=== PATIENT | female | born 1940 | race Caucasian/White ===

== ENCOUNTER 2016-06-10 17:08 | Inpatient (IN) | payer BC, OTHER ==
[~2016-06-10] VITALS: Ht 160 cm; Wt 125.3 kg
[~2016-06-10 17:08] MED LIST: ADVIN25/60 INH; ALBINS INH; APR25 PO; ASPI81TA28 PO; FURO-85 PO; INSDGI SC; IPRA1AER2 INH; LINICRE52; LISI40TA PO; LPR25 PO; MCTP EXT; NVLGI SC; NVLGI SQ; OMEP20CA9 PO; OXGN; POTA10CA28 PO; SIMV-151 PO; SLWMEC PO; TYLOTC500 PO
[2016-06-10] MEDS ORDERED: SODIUM CHLORIDE 0.9% 1000ML 1,000 ML IV STA (17:46)
--- NOTE | 2016-06-10 18:03 | EMERGENCY ROOM VISIT NOTE ---
History First contact with patient: 17:21 Chief Complaint: REFERRED BY DOCTOR Stated Complaint: REFERRED History of Present Illness The patient is a 75 year old female who presents to the Emergency Room with complaints of fatigue and shortness of breath for the past 2 weeks. She cannot recall any inciting factors. She is brought in today because she saw her PCP because hemoglobin was noted to have acutely dropped to 6.5 ( baseline approximately 9) She denies any bleeding. She has not had melena or ruy blood in the stool. She denies abdominal pain, nausea or vomiting. She also notes shortness of breath or the past 2 weeks. It is non-positional. She does not have chest pain or palpitations. She denies presyncope or syncope. She has noted increased edema and 'weeping' bilaterally in her lower extremities. She also notes increasing bilateral calf tenderness. She thought about doubling her dose of Lasix but did not. She has not had any dysuria, but notes incontinence with coughing. She denies blood in the urine. Review of Systems A review of systems was otherwise negative. Past Medical/Surgical History Medical Problems: (1) Bilateral lower leg cellulitis (2) CAD (coronary artery disease) (3) COPD (chronic obstructive pulmonary disease) (4) Diastolic CHF (5) DM type 2 (diabetes mellitus, type 2) (6) Dyslipidemia (7) EDEMA (8) HISTORY OF TOBACCO USE (9) HYPERLIPIDEMIA NEC/NOS (10) HYPERTENSION NOS (11) MORBID OBESITY (12) Nocturnal hypoxemia (13) OBSTRUCTIVE CHRONIC BRONCH, W/ ACUTE EXACERBATION (14) Osteoarthritis (15) Symptomatic anemia (16) VENOUS INSUFFICIENCY NOS Surgical Problems: (1) History of cataract surgery (2) History of hysterectomy (3) History of total left knee replacement (4) S/P adenoidectomy Family History Diabetes mellitus MOTHER SISTER FH: CAD (coronary artery disease) MOTHER BROTHER FH: lung cancer BROTHER Social History Smoking Status: Former Smoker (25 pack year) Alcohol Use: none Drug Use: none Marital Status: single Housing Status: lives alone 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) Current/Historical Medications Scheduled Aspirin (Aspirin Ec), 81 MG PO DAILY Ferrous Sulfate (Ferrous Sulfate), 325 MG PO DAILY WITH BREAKFAST Fluticasone Prop/Salmeterol (Advair Diskus 250/50 60 Dose), 1 PUFF INH BID Furosemide (Lasix), 40 MG PO DAILY Hydralazine Hcl (Apresoline), 25 MG PO TID Insulin Aspart (Novolog), 10 UNITS SQ BIDM Insulin Aspart (Novolog), 12 UNITS SQ LUNCH Insulin Glargine (Lantus), 50 UNITS SC HS Ipratropium-Albuterol (Combivent Respimat), 1 PUFFS INH QID Lisinopril (Zestril), 40 MG PO HS Metoprolol Tartrate (Lopressor), 25 MG PO BID Omeprazole (Prilosec), 20 MG PO HS Oxygen (Oxygen), 2 LITERS NA HS Potassium Chloride (Micro-K Ext Rel), 10 MEQ PO DAILY Simvastatin (Simvastatin), 20 MG PO HS Scheduled PRN Acetaminophen (Tylenol), 1,000 MG PO Q8 PRN Allergies Coded Allergies: Cephalosporins (Verified Allergy, Unknown, 06/10/16) Ciprofloxacin (Verified Allergy, Unknown, RASH, 06/10/16) Clindamycin (Verified Allergy, Unknown, RASH, 06/10/16) Erythromycin (Verified Allergy, Unknown, 06/10/16) Metformin (Unverified Allergy, Unknown, EDEMA FACE AND HANDS, ITCHY, ) Penicillins (Verified Allergy, Unknown, 06/10/16) Sulfa Antibiotics (Verified Allergy, Unknown, ., 06/10/16) Physical Exam Vital Signs Date Time Temp Pulse Resp B/P Pulse Ox O2 Delivery O2 Flow Rate FiO2 06/10/16 20:30 105 23 158/82 98 Nasal Cannula 2.0 06/10/16 19:08 93 Nasal Cannula 3.0 06/10/16 19:07 87 Room Air 06/10/16 19:01 121 06/10/16 18:28 69 31 06/10/16 18:23 69 25 06/10/16 17:59 94 Room Air 06/10/16 17:14 36.7 119 18 138/73 91 Room Air Pain Rating (0-10): 0 Physical Exam Constitutional: Vital signs as above were reviewed. Eyes: Pupils equal, round, and reactive to light. Extraocular muscles are intact. No proptosis. No photophobia. ENT: Mucous membranes are moist. Oropharynx is clear. No sinus tenderness. TMs are clear bilaterally. Cardiovascular: Heart with a regular rate and rhythm. JVD 3 cm; 2 + pitting edema and weepiness in extremities Respiratory: Wheezing anteriorly Bibasilar crackles GI: Morbidily obese Abdomen soft, nontender, nondistended. Normal active bowel sounds. No abdominal hernias appreciated. No rebound. No guarding. : No CVA tenderness appreciated. Musculoskeletal: No midline cervical or vertebral tenderness. Mild left paraspinal tenderness. No gross deformities. No bony tenderness. No calf swelling or tenderness. Integumentary: Warm, dry, no rashes appreciated. Bilateral erythema and mild scattered superficial blistering of the calfs Neurological: Patient awake, alert, and oriented x 3. Cranial nerves two through 12 grossly intact. Motor 5 out of 5 strength bilateral upper and lower extremities. Lymph: No cervical lymphadenopathy appreciated. Medical Decision & Procedures ER Provider Diagnostic Interpretation: CHEST ONE VIEW PORTABLE HISTORY: bilateral crackles; rule-out pulmonary edema COMPARISON: Chest 11/26/2015. FINDINGS: Cardiac silhouette is mildly enlarged. This is similar to the prior study. Blunting of the bilateral costophrenic sulci suggest trace pleural effusions. No pneumothorax. No focal lung consolidations to suggest pneumonia. No evidence for pulmonary edema. No change in the right hilar/mediastinal fullness. IMPRESSION: 1. Stable enlargement of cardiac silhouette and stable right hilar/mediastinal fullness. 2. Suspect trace bilateral pleural effusions. Electronically signed by: Alton Khan M.D. 06/10/2016 6:19 PM Dictated Date/Time: 06/10/2016 6:17 PM Laboratory Results 06/10/16 18:06 Red Blood Count 3.76, Mean Corpuscular Volume 67.0, Mean Corpuscular Hemoglobin 17.8, Mean Corpuscular Hemoglobin Concent 26.6, Neutrophils (%) (Auto) 72.9, Lymphocytes (%) (Auto) 17.8, Monocytes (%) (Auto) 6.9, Eosinophils (%) (Auto) 1.7, Basophils (%) (Auto) 0.6, Neutrophils # (Auto) 6.48, Lymphocytes # (Auto) 1.58, Monocytes # (Auto) 0.61, Eosinophils # (Auto) 0.15, Basophils # (Auto) 0.05 06/10/16 18:06 Test 06/10/16 18:06 06/10/16 18:42 06/10/16 20:20 White Blood Count 8.88 K/uL (4.8-10.8) Red Blood Count 3.76 M/uL (4.2-5.4) Hemoglobin 6.7 g/dL (12.0-16.0) Hematocrit 25.2 % (37-47) Mean Corpuscular Volume 67.0 fL (80-100) Mean Corpuscular Hemoglobin 17.8 pg (25-34) Mean Corpuscular Hemoglobin Concent 26.6 g/dl (32-36) Platelet Count 263 K/uL (130-400) Neutrophils (%) (Auto) 72.9 % Lymphocytes (%) (Auto) 17.8 % Monocytes (%) (Auto) 6.9 % Eosinophils (%) (Auto) 1.7 % Basophils (%) (Auto) 0.6 % Neutrophils # (Auto) 6.48 K/uL (1.4-6.5) Lymphocytes # (Auto) 1.58 K/uL (1.2-3.4) Monocytes # (Auto) 0.61 K/uL (0.11-0.59) Eosinophils # (Auto) 0.15 K/uL (0-0.5) Basophils # (Auto) 0.05 K/uL (0-0.2) RDW Standard Deviation 51.6 fL (36.4-46.3) RDW Coefficient of Variation 21.2 % (11.5-14.5) Immature Granulocyte % (Auto) 0.1 % Immature Granulocyte # (Auto) 0.01 K/uL (0.00-0.02) Hypochromasia PRESENT Anisocytosis PRESENT Microcytosis PRESENT Macrocytosis PRESENT Prothrombin Time 13.6 SECONDS (9.0-12.0) Prothromb Time International Ratio 1.3 (0.9-1.1) Activated Partial Thromboplast Time 25.4 SECONDS (21.0-31.0) Partial Thromboplastin Ratio 1.0 Anion Gap 7.0 mmol/L (3-11) Estimated GFR () 70.2 Estimated GFR (Non- 60.5 BUN/Creatinine Ratio 21.1 (10-20) Calcium Level 7.7 mg/dl (8.5-10.1) Magnesium Level 1.1 mg/dl (1.8-2.4) Total Bilirubin 0.5 mg/dl (0.2-1) Direct Bilirubin 0.2 mg/dl (0-0.2) Aspartate Amino Transf (AST/SGOT) 20 U/L (15-37) Alanine Aminotransferase (ALT/SGPT) 10 U/L (12-78) Alkaline Phosphatase 110 U/L (45-117) Troponin I < 0.015 ng/ml (0-0.045) Total Protein 6.7 gm/dl (6.4-8.2) Albumin 2.8 gm/dl (3.4-5.0) Lipase 168 U/L (73-393) Thyroid Stimulating Hormone (TSH) 1.340 uIu/ml (0.300-4.500) Urine Color YELLOW Urine Appearance CLEAR (CLEAR) Urine pH 8.5 (4.5-7.5) Urine Specific [place] 1.016 (1.000-1.030) Urine Protein TRACE (NEG) Urine Glucose (UA) NEG (NEG) Urine Ketones NEG (NEG) Urine Occult Blood NEG (NEG) Urine Nitrite NEG (NEG) Urine Bilirubin NEG (NEG) Urine Urobilinogen NEG (NEG) Urine Leukocyte Esterase MODERATE (NEG) Urine WBC (Auto) >30 /hpf (0-5) Urine RBC (Auto) 0-4 /hpf (0-4) Urine Hyaline Casts (Auto) 1-5 /lpf (0-5) Urine Epithelial Cells (Auto) 10-20 /lpf (0-5) Urine Bacteria (Auto) NEG (NEG) Arterial Blood pH 7.48 (7.35-7.45) Arterial Blood Partial Pressure CO2 44 mmHg (35-46) Arterial Blood Partial Pressure O2 92 mm/Hg (80-95) Arterial Blood HCO3 33 mmol/L (19-24) Arterial Blood Oxygen Saturation 93.6 % (90-95) Arterial Blood Base Excess 8.3 mEq/L (-9-1.8) Arterial Blood Gas Delivery 2L Vick Test POS (POS) Medications Administered Medications (Trade) Dose Ordered Sig/Toro Route Start Time Stop Time Status Last Admin Dose Admin Sodium Chloride (Nss 1000ml) 1,000 ml @ 999 mls/hr Q1H1M STAT IV 06/10/16 17:46 06/10/16 18:46 DC 06/10/16 18:45 999 MLS/HR Albuterol/ Ipratropium (Duoneb) 3 ml ONE ONCE INH 06/10/16 19:45 06/10/16 19:46 DC 06/10/16 19:43 3 ML Furosemide (Lasix Inj) 40 mg NOW STAT IV 06/10/16 19:39 06/10/16 19:40 DC 06/10/16 20:08 40 MG Dextrose (Dextrose 50% 50ML Syringe) 50 ml NOW ONCE IV 06/10/16 20:00 06/10/16 20:13 DC 06/10/16 20:32 50 ML ECG Change: Undetermined rhythm Low voltage QRS Inferior infarct , age undetermined Cannot rule out Anterior infarct , age undetermined Prolonged QT Abnormal ECG When compared with ECG of 26-NOV-2015 11:03, Significant changes have occurred ED Course 15:15 - Patient seen and evaluated Orders placed by Dr. Shukla 18:45 - Bedside rectal examination with hemoccult positive Discussed results with ED attending, Dr. Manjit Shukla Discussed results with patient and need for admission for further work-up 19:15 - Decision to admit Discussed case with [facility] [place]; will come down to admit patient 19:20 - Re-assessed; anterior wheezing with posterior crackles Single duoneb treatment Single dose 40 mg IV lasix 19:45 - Consent obtained for blood products Medical Decision Patient presents due to SOB for 2 weeks. Hb from PCP office was 6.5, confirmed in the ED at 6.7. Most likely source was GI tract. Bedside Hemoccult was positive. SOB might also be explained by other pertinent findings in the patient including anterior chest field wheezing as well as bibasilar crackles. At this point patient has gastrointestinal bleeding until otherwise proven. Given Hb < 7, she requires transfusion and likely evaluation by colonoscopy +/- upper endoscopy. Given wheezing, I have treated her with 1 dose of Duonebs as this may represent mild COPD exaccerbation. She also has diastolic CHF with evidence of increased lower extremity edema. I have diuresed her with 40 mg Lasix in the ED. She may require intermittent diuresis. She has been consented for blood products. She was signed out to primary hospital team in stable condition. Departure Information Dispostion Being Evaluated By Hospitalist Condition GOOD Referrals Jimi Sanchez, D.O. (PCP) Patient Instructions My [facility]
[2016-06-10] MEDS ORDERED: FRS/40 PO (18:21)
[2016-06-10] MEDS ORDERED: NVLG SQ ×2 (18:21)
[2016-06-10] MEDS ORDERED: INSDGI SC (18:21)
[2016-06-10] MEDS ORDERED: FRRS300 PO (18:21)
--- NOTE | 2016-06-10 18:21 | DIAGNOSTIC IMAGING REPORT ---
CHEST ONE VIEW PORTABLE HISTORY: bilateral crackles; rule-out pulmonary edema COMPARISON: Chest 11/26/2015. FINDINGS: Cardiac silhouette is mildly enlarged. This is similar to the prior study. Blunting of the bilateral costophrenic sulci suggest trace pleural effusions. No pneumothorax. No focal lung consolidations to suggest pneumonia. No evidence for pulmonary edema. No change in the right hilar/mediastinal fullness. IMPRESSION: 1. Stable enlargement of cardiac silhouette and stable right hilar/mediastinal fullness. 2. Suspect trace bilateral pleural effusions. Electronically signed by: Alton Khan M.D. 06/10/2016 6:19 PM Dictated Date/Time: 06/10/2016 6:17 PM
[2016-06-10 18:30] LABS: HEMATOCRIT 25.2 % (37-47); MEAN CORPUSCULAR HEMOGLOBIN 17.8 pg (25-34); MEAN CORPUSCULAR HGB CONC 26.6 g/dl (32-36); PLATELET COUNT 263 K/uL (130-400); RED BLOOD COUNT 3.76 M/uL (4.2-5.4); WHITE BLOOD COUNT 8.88 K/uL (4.8-10.8)
[2016-06-10 18:37] LABS: ANISOCYTOSIS PRESENT; BASO % 0.6 %; BASO ABS # 0.05 K/uL (0-0.2); COMPLETE YES; EOS % 1.7 %; HYPOCHROMIA PRESENT; IG% 0.1 %; LYMPH % 17.8 %; LYMPH ABS # 1.58 K/uL (1.2-3.4); MICROCYTOSIS PRESENT; MONO % 6.9 %; NEUT % 72.9 %
[2016-06-10 18:39] LABS: ALT/SGPT 10 U/L (12-78); BLOOD UREA NITROGEN 20 mg/dl (7-18); BUN/CREATININE RATIO 21.1 (10-20); CALCIUM 7.7 mg/dl (8.5-10.1); CARBON DIOXIDE 33 mmol/L (21-32); CHLORIDE 107 mmol/L (98-107); CREATININE 0.93 mg/dl (0.60-1.20); GLUCOSE 57 mg/dl (70-99); POTASSIUM 4.1 mmol/L (3.5-5.1); SODIUM 147 mmol/L (136-145)
[2016-06-10 18:42] LABS: ALKALINE PHOSPHATASE 110 U/L (45-117); AST/SGOT 20 U/L (15-37)
[2016-06-10 18:49] LABS: INR 1.3 (0.9-1.1); PROTHROMBIN TIME (PATIENT) 13.6 SECONDS (9.0-12.0)
[2016-06-10 19:11] LABS: URINE APPEARANCE CLEAR (CLEAR); URINE BILIRUBIN NEG (NEG); URINE COLOR YELLOW; URINE NITRITE NEG (NEG); URINE PH 8.5 (4.5-7.5); URINE SPECIFIC GRAVITY 1.016 (1.000-1.030); UROBILINOGEN NEG (NEG)
[2016-06-10 19:29] LABS: MANUAL MICROSCOPIC REQUIRED? NO; REVIEW REQ? NO; SULFASALICYLIC ACID POS (NEG)
[2016-06-10] MEDS ORDERED: FUROSEMIDE 40 MG/4 ML VIAL IV STA (19:39)
[2016-06-10] MEDS ORDERED: ALBUT/IPRATROP 3MG/0.5MG NEB 3 ML VIAL INH ONE (19:45)
[2016-06-10] MEDS ORDERED: DEXTROSE 50% 50 ML SYR IV ONE (20:00)
[2016-06-10 20:26] LABS: MAGNESIUM 1.1 mg/dl (1.8-2.4)
[2016-06-10 20:31] LABS: ARTERIAL BLD GAS O2 SATURATION 93.6 % (90-95); ARTERIAL BLOOD GAS BASE EXCESS 8.3 mEq/L (-9-1.8); ARTERIAL BLOOD GAS HCO3 33 mmol/L (19-24); ARTERIAL BLOOD GAS PO2 92 mm/Hg (80-95); ARTERIAL BLOOD GAS pH 7.48 (7.35-7.45)
[2016-06-10 20:32] LABS: ALLEN TEST POS (POS); O2 ADMINISTRATION 2L
[2016-06-10] MEDS ORDERED: LEVALBUTEROL/IPRATROPIUM NEB INH STA (20:44)
[2016-06-10] MEDS ORDERED: PROMETHAZINE HCL INJ 12.5 MG in SODIUM CHLORIDE 0.9% 50ML 50 ML IV PRN (20:45)
[2016-06-10] MEDS ORDERED: HYDROmorphone INJ 0.5 MG/0.5 ML SYR IV PRN (20:45)
[2016-06-10] MEDS ORDERED: GLUCOSE 10 TABS/TUBE PO PRN (20:45)
[2016-06-10] MEDS ORDERED: NITROGLYCERIN 0.4 MG SL PER TAB CHARGE SL PRN (20:45)
[2016-06-10] MEDS ORDERED: LEVALBUTEROL/IPRATROPIUM NEB INH PRN (20:45)
[2016-06-10] MEDS ORDERED: TRAMADOL HCL 50 MG TAB PO PRN (20:45)
[2016-06-10] MEDS ORDERED: DEXTROSE 50% 50 ML SYR IV PRN (20:45)
[2016-06-10] MEDS ORDERED: GLUCAGON FOR INJ 1 MG VIAL SQ PRN (20:45)
[2016-06-10] MEDS ORDERED: GLUCOSE 40% GEL 15 GM TUBE PO PRN (20:45)
[2016-06-10] MEDS: INSULIN ASPART 100 UNITS/ML 3 ML PEN SC SCH (21:00)
[2016-06-10 21:41] VITALS: BP 167/86; PULSE 79; TEMP 36.5; O2SAT 94
[2016-06-10 22:14] VITALS: BP 167/86; PULSE 79; TEMP 36.5; O2SAT 96; BMI 47.6
[2016-06-10] MEDS ORDERED: IPRATROPIUM BROMIDE NEB SOLN 0.02% 2.5 ML VIAL INH STA (22:16)
[2016-06-10] MEDS ORDERED: LEVALBUTEROL 1.25MG/0.5ML NEB INH STA (22:16)
--- NOTE | 2016-06-10 22:29 | HISTORY & PHYSICAL EXAMINATION ---
DATE OF ADMISSION: 06/10/2016 PRIMARY CARE DOCTOR: Dr. Sanchez. Hx obtained from px and records. CHIEF COMPLAINT: Abnormal blood work. HISTORY OF PRESENT ILLNESS: Medical history is significant for chronic respiratory failure secondary to COPD on home O2 at night, past tobacco abuse, CAD as per records, chronic diastolic heart failure (EF of 60-65% 2D echo in 2012), chronic anemia (baseline hemoglobin 9-10 as of 2015), DM2 insulin requiring, chronic venous insufficiency on diuretic therapy. Recent confinement last in November 2015 for diastolic heart failure and lower extremity swelling. In the last 2 weeks the patient noted shortness of breath especially on exertion. Feeling tired. No chest pain. Denies weight gain. Legs; kind of swollen and red with some seepage. painful legs Denies orthopnea. Denies black bloody stools, abdominal pain. Seen at the PCP's office today. Outpatient blood work showed hemoglobin of 6.5 Patient was sent to the Emergency Room. Hemoccult positive in the ER. MEDICAL HISTORY: As above. GI workup for anemia previously refused. Occasional hypoglycemic episodes in 70s at home. SURGERIES: She has had cataract surgery, hysterectomy, knee surgery, tonsillectomy and adenoidectomy. HOME MEDICATIONS: Include; Tylenol, aspirin, Advair Diskus, ferrous sulfate, Lasix, Combivent, simvastatin, NovoLog, Lantus, Zestril, Prilosec and oxygen at night. ALLERGIES: TO CLINDAMYCIN, ERYTHROMYCIN, CIPROFLOXACIN, METFORMIN, PENICILLIN AND SULFA. FAMILY HISTORY: Heart disease and diabetes. PERSONAL AND SOCIAL HISTORY: Past tobacco, no chronic intake of alcoholic beverages. 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 PHYSICAL EXAMINATION: VITAL SIGNS: Blood pressure was noted to be 158/82, pulse rate 105, RR 23, sats 87 later 90 on 3 liters. GENERAL: Noted to be uncomfortable. No respiratory distress. Obese. SKIN: Pallor. HEENT: Pale palpebral conjuctivae. Dry mucosa. NECK: Short. LUNGS: Decreased breath sounds. HEART: Tachycardic. ABDOMEN: Some distension, nontender. EXTREMITIES: Bilateral lower extremity erythema/induration, rayray LE tenderness. NEUROLOGIC: No gross focality. LABORATORIES: Hemoglobin 6.7 white cell count 5 platelets 260. Sodium 147 potassium 4.1, chloride 107, CO2 30, BUN 20, creatinine 0.9 and glucose was noted to be 57 Chest x-ray showed cardiomegaly with trace bilateral pleural effusions EKG junctional rhythm. ASSESSMENT: 1. Shortness of breath secondary to symptomatic anemia occult gastrointestinal bleed. 2. Hypertension, slightly elevated 3. chronic diastolic heart failure, euvolemic 4. hx CAD as per records 5. lower extremity cellulitis underlying chronic venous insufficiency on diuretic tx no sepsis. ro LE DVT 6. DM2, insulin requiring well-controlled as of recent hemoglobin A1c (4.2015) Patient with hypoglycemic episodes. 7. chronic resp failure 2 to COPD on home O2 at night PLAN: PCU transfuse pRBC to maintain hemoglobin greater than 8. Hold aspirin for now GI consult RE occult GI bleed continue home Lasix; Doxycycline trial for LE cellulitis, local measures Hold basal insulin, ISS BG goal 140-180; may need to decrease basal insulin home dose on dc in light of hypoglycemic episodes PT, OT eval. LE venous dopplers to rule out DVT (patient refusing for now) DVT prophylaxis, SCDs RE GI bleed Full code. MTDD
[2016-06-10] MEDS ORDERED: IPRATROPIUM BROMIDE NEB SOLN 0.02% 2.5 ML VIAL INH PRN (22:30)
[2016-06-10] MEDS ORDERED: LEVALBUTEROL 1.25MG/0.5ML NEB INH PRN (22:30)
[2016-06-10 23:02] VITALS: BP 172/76; PULSE 73; TEMP 36.3; O2SAT 98
[2016-06-10 23:20] VITALS: BP 159/86; PULSE 97; TEMP 36.7; O2SAT 97
[2016-06-10 23:35] VITALS: BP 176/83; PULSE 105; TEMP 36.7; O2SAT 98
[2016-06-10] MEDS: ACETAMINOPHEN 325 MG TAB PO PRN (23:35)
[2016-06-10] MEDS: FLUTICASONE/SALMETEROL 250/50 (ADVAIR) 14 PUFF/1 INHALER INH SCH (23:35)
[2016-06-10] MEDS: PANTOprazole SOD 40 MG TAB PO SCH (23:36)
[2016-06-10] MEDS: METOPROLOL TARTRATE 25 MG TAB PO SCH (23:37)
[2016-06-10] MEDS: SIMVASTATIN 20 MG TAB PO SCH (23:37)
[2016-06-10] MEDS: LISINOPRIL 40 MG TAB PO SCH (23:38)
[2016-06-10] MEDS: MAGNESIUM SULFATE 1GM / D5W 1 GM in PREMIXED IN D5W 100 ML IV SCH (23:38)
[2016-06-10] MEDS: DOXYCYCLINE IV 100 MG in DEXTROSE 5% 100ML 100 ML IV SCH (23:39)
[2016-06-11] VITALS (20 sets, daily range): BP systolic 124–163; BP diastolic 55–86; PULSE 64–105; TEMP 36.4–37; O2SAT 90–98; Ht 160 cm; Wt 125.3 kg
--- NOTE | 2016-06-11 00:46 | EMERGENCY ROOM VISIT NOTE ---
History Report prepared by Darnell: Ivy Shaw Under the Supervision of: Dr. Manjit Shukla D.O. 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 She states that she was referred here by her doctor and was told that she needed to get blood after having a hemoglobin of 6.5. She complains of shortness of breath, swelling in the legs over the last couple of weeks, and leg sores for a couple of weeks. She notes that her legs have never been this swollen before. The patient denies any chest pain, cough, runny nose, sore throat, nausea, bloody stools, black stools, and being on blood thinners. 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 The patient denies any runny nose, bloody stools, black stools, and being on blood thinners. Review of Systems See HPI for pertinent positives & negatives. A total of 10 systems reviewed and were otherwise negative. Past Medical & Surgical Medical Problems: (1) Bilateral lower leg cellulitis (2) CAD (coronary artery disease) (3) COPD (chronic obstructive pulmonary disease) (4) Diastolic CHF (5) DM type 2 (diabetes mellitus, type 2) (6) Dyslipidemia (7) EDEMA (8) HISTORY OF TOBACCO USE (9) HYPERLIPIDEMIA NEC/NOS (10) HYPERTENSION NOS (11) MORBID OBESITY (12) Nocturnal hypoxemia (13) OBSTRUCTIVE CHRONIC BRONCH, W/ ACUTE EXACERBATION (14) Osteoarthritis (15) Symptomatic anemia (16) VENOUS INSUFFICIENCY NOS Surgical Problems: (1) History of cataract surgery (2) History of hysterectomy (3) History of total left knee replacement (4) S/P adenoidectomy Family History Diabetes mellitus MOTHER SISTER FH: CAD (coronary artery disease) MOTHER BROTHER FH: lung cancer BROTHER Social History Smoking Status: Former Smoker Marital Status: single Housing Status: lives alone Occupation Status: retired Current/Historical Medications Scheduled Aspirin (Aspirin Ec), 81 MG PO DAILY Ferrous Sulfate (Ferrous Sulfate), 325 MG PO DAILY WITH BREAKFAST Fluticasone Prop/Salmeterol (Advair Diskus 250/50 60 Dose), 1 PUFF INH BID Furosemide (Lasix), 40 MG PO DAILY Hydralazine Hcl (Apresoline), 25 MG PO TID Insulin Aspart (Novolog), 10 UNITS SQ BIDM Insulin Aspart (Novolog), 12 UNITS SQ LUNCH Insulin Glargine (Lantus), 50 UNITS SC HS Ipratropium-Albuterol (Combivent Respimat), 1 PUFFS INH QID Lisinopril (Zestril), 40 MG PO HS Metoprolol Tartrate (Lopressor), 25 MG PO BID Omeprazole (Prilosec), 20 MG PO HS Oxygen (Oxygen), 2 LITERS NA HS Potassium Chloride (Micro-K Ext Rel), 10 MEQ PO DAILY Simvastatin (Simvastatin), 20 MG PO HS Scheduled PRN Acetaminophen (Tylenol), 1,000 MG PO Q8 PRN Allergies Coded Allergies: Cephalosporins (Verified Allergy, Unknown, 06/10/16) Ciprofloxacin (Verified Allergy, Unknown, RASH, 06/10/16) Clindamycin (Verified Allergy, Unknown, RASH, 06/10/16) Erythromycin (Verified Allergy, Unknown, 06/10/16) Metformin (Unverified Allergy, Unknown, EDEMA FACE AND HANDS, ITCHY, ) Penicillins (Verified Allergy, Unknown, 06/10/16) Sulfa Antibiotics (Verified Allergy, Unknown, ., 06/10/16) Physical Exam Vital Signs Date Time Temp Pulse Resp B/P Pulse Ox O2 Delivery O2 Flow Rate FiO2 06/10/16 19:08 93 Nasal Cannula 3.0 06/10/16 19:07 87 Room Air 06/10/16 19:01 121 06/10/16 18:28 69 31 06/10/16 18:23 69 25 06/10/16 17:59 94 Room Air 06/10/16 17:14 36.7 119 18 138/73 91 Room Air Physical Exam GENERAL: morbidly obese, sitting up in bed, dyspneic EYE EXAM: normal conjunctiva OROPHARYNX: no exudate, no erythema, lips, buccal mucosa, and tongue normal and mucous membranes are moist NECK: supple, no nuchal rigidity, no adenopathy, non-tender LUNGS: Diminished bilateral bases. Normal chest wall mechanics HEART: tachycardic, no murmurs, S1 normal and S2 normal ABDOMEN: abdomen soft, non-tender, normo-active bowel sounds, no masses, no rebound or guarding. BACK: Back is symmetrical on inspection and there is no deformity, no midline tenderness, no CVA tenderness. SKIN: no rashes and no bruising UPPER EXTREMITIES: upper extremities are grossly normal. LOWER EXTREMITIES: Bilateral pitting edema with slight oozing of the bilateral extremities. 3+ pitting edema. NEURO EXAM: Normal sensorium, cranial nerves II-XII grossly intact, normal speech, no gross weakness of arms, no gross weakness of legs. Medical Decision & Procedures ER Provider Diagnostic Interpretation: Xray results per the radiologist and my interpretation. CHEST ONE VIEW PORTABLE FINDINGS: Cardiac silhouette is mildly enlarged. This is similar to the prior study. Blunting of the bilateral costophrenic sulci suggest trace pleural effusions. No pneumothorax. No focal lung consolidations to suggest pneumonia. No evidence for pulmonary edema. No change in the right hilar/mediastinal fullness. IMPRESSION: 1. Stable enlargement of cardiac silhouette and stable right hilar/mediastinal fullness. 2. Suspect trace bilateral pleural effusions. Electronically signed by: Alton Khan M.D. 06/10/2016 6:19 PM Dictated Date/Time: 06/10/2016 6:17 PM Laboratory Results 06/10/16 18:06 Red Blood Count 3.76, Mean Corpuscular Volume 67.0, Mean Corpuscular Hemoglobin 17.8, Mean Corpuscular Hemoglobin Concent 26.6, Neutrophils (%) (Auto) 72.9, Lymphocytes (%) (Auto) 17.8, Monocytes (%) (Auto) 6.9, Eosinophils (%) (Auto) 1.7, Basophils (%) (Auto) 0.6, Neutrophils # (Auto) 6.48, Lymphocytes # (Auto) 1.58, Monocytes # (Auto) 0.61, Eosinophils # (Auto) 0.15, Basophils # (Auto) 0.05 06/10/16 18:06 Test 06/10/16 18:06 06/10/16 18:42 White Blood Count 8.88 K/uL (4.8-10.8) Red Blood Count 3.76 M/uL (4.2-5.4) Hemoglobin 6.7 g/dL (12.0-16.0) Hematocrit 25.2 % (37-47) Mean Corpuscular Volume 67.0 fL (80-100) Mean Corpuscular Hemoglobin 17.8 pg (25-34) Mean Corpuscular Hemoglobin Concent 26.6 g/dl (32-36) Platelet Count 263 K/uL (130-400) Neutrophils (%) (Auto) 72.9 % Lymphocytes (%) (Auto) 17.8 % Monocytes (%) (Auto) 6.9 % Eosinophils (%) (Auto) 1.7 % Basophils (%) (Auto) 0.6 % Neutrophils # (Auto) 6.48 K/uL (1.4-6.5) Lymphocytes # (Auto) 1.58 K/uL (1.2-3.4) Monocytes # (Auto) 0.61 K/uL (0.11-0.59) Eosinophils # (Auto) 0.15 K/uL (0-0.5) Basophils # (Auto) 0.05 K/uL (0-0.2) RDW Standard Deviation 51.6 fL (36.4-46.3) RDW Coefficient of Variation 21.2 % (11.5-14.5) Immature Granulocyte % (Auto) 0.1 % Immature Granulocyte # (Auto) 0.01 K/uL (0.00-0.02) Hypochromasia PRESENT Anisocytosis PRESENT Microcytosis PRESENT Macrocytosis PRESENT Prothrombin Time 13.6 SECONDS (9.0-12.0) Prothromb Time International Ratio 1.3 (0.9-1.1) Activated Partial Thromboplast Time 25.4 SECONDS (21.0-31.0) Partial Thromboplastin Ratio 1.0 Anion Gap 7.0 mmol/L (3-11) Estimated GFR () 70.2 Estimated GFR (Non- 60.5 BUN/Creatinine Ratio 21.1 (10-20) Calcium Level 7.7 mg/dl (8.5-10.1) Magnesium Level 1.1 mg/dl (1.8-2.4) Total Bilirubin 0.5 mg/dl (0.2-1) Direct Bilirubin 0.2 mg/dl (0-0.2) Aspartate Amino Transf (AST/SGOT) 20 U/L (15-37) Alanine Aminotransferase (ALT/SGPT) 10 U/L (12-78) Alkaline Phosphatase 110 U/L (45-117) Troponin I < 0.015 ng/ml (0-0.045) Total Protein 6.7 gm/dl (6.4-8.2) Albumin 2.8 gm/dl (3.4-5.0) Lipase 168 U/L (73-393) Thyroid Stimulating Hormone (TSH) 1.340 uIu/ml (0.300-4.500) Urine Color YELLOW Urine Appearance CLEAR (CLEAR) Urine pH 8.5 (4.5-7.5) Urine Specific [place] 1.016 (1.000-1.030) Urine Protein TRACE (NEG) Urine Glucose (UA) NEG (NEG) Urine Ketones NEG (NEG) Urine Occult Blood NEG (NEG) Urine Nitrite NEG (NEG) Urine Bilirubin NEG (NEG) Urine Urobilinogen NEG (NEG) Urine Leukocyte Esterase MODERATE (NEG) Urine WBC (Auto) >30 /hpf (0-5) Urine RBC (Auto) 0-4 /hpf (0-4) Urine Hyaline Casts (Auto) 1-5 /lpf (0-5) Urine Epithelial Cells (Auto) 10-20 /lpf (0-5) Urine Bacteria (Auto) NEG (NEG) Laboratory results per my review. Medications Administered Medications (Trade) Dose Ordered Sig/Toro Route Start Time Stop Time Status Last Admin Dose Admin Sodium Chloride (Nss 1000ml) 1,000 ml @ 999 mls/hr Q1H1M STAT IV 06/10/16 17:46 06/10/16 18:46 DC 06/10/16 18:45 999 MLS/HR Albuterol/ Ipratropium (Duoneb) 3 ml ONE ONCE INH 06/10/16 19:45 06/10/16 19:46 DC 06/10/16 19:43 3 ML Furosemide (Lasix Inj) 40 mg NOW STAT IV 06/10/16 19:39 06/10/16 19:40 DC 06/10/16 20:08 40 MG Dextrose (Dextrose 50% 50ML Syringe) 50 ml NOW ONCE IV 06/10/16 20:00 06/10/16 20:13 DC 06/10/16 20:32 50 ML ED Course ED COURSE: Vital signs were reviewed and showed tachycardic The patients medical record was reviewed The above diagnostic studies were performed and reviewed. ED treatments and interventions as stated above. 174: Sodium Chloride 1000 ml @ 999 mls/hr IV. 1755: The patient was evaluated in room B5. A complete history and physical examination was performed. 1806: The rectal exam was performed by the resident. It was heme positive. 1942: I reevaluated and updated the patient. 1944: The resident discussed the case with [facility] internal medicine. 1949: Upon reevaluation, the patient is hemodynamically stable.I discussed my findings with the patient and she understands and agrees with the treatment plan. Based on the patients age, coexisting illnesses, exam and lab findings the decision to treat as an inpatient was made. The patient remained stable while under my care. The patient will be evaluated for further management. Medical Decision Differential diagnoses includes but is not limited to pneumonia, bronchitis, COPD/Asthma exacerbation, pneumothorax, pulmonary embolism, congestive heart failure, acute coronary syndrome Patient is a 75-year-old female with past medical history of CHF and anemia that presents to the ER referred in by her primary care doctor for anemia. Previous blood work shows a hemoglobin of 10 but today was 6.5. Patient does describe exertional shortness of breath. She denies any dark tarry stools or bright red blood per rectum. She is heme positive. The patients hemoglobin was 10.5 in June and 9.3 in November. Echo from 2012, EF 60%, grade 2 diastolic dysfunction. She was typed and crossed and given PRBCs with her symptomatically anemia. Remainder labs are fairly unremarkable. Patient was seen by the resident initially and evaluated by myself independently. She is taking no anticoagulants. Patient family were updated at bedside. She is eventually agreeable to admission for anemia with a GI bleed. Consults Time Called: 1939 Consulting Physician: [facility] Returned Call: 1944 The resident discussed the case with [facility] internal medicine. Impression Primary Impression: GI bleed Additional Impression: Symptomatic anemia Scribe Attestation The scribe's documentation has been prepared under my direction and personally reviewed by me in its entirety. I confirm that the note above accurately reflects all work, treatment, procedures, and medical decision making performed by me. Departure Information Dispostion Being Evaluated By Hospitalist Referrals Jimi Sanchez D.O. (PCP) Patient Instructions My [facility] Problem Qualifiers Primary Impression: GI bleed GI bleed type/associated pathology: unspecified gastrointestinal hemorrhage type Qualified Codes: K92.2 - Gastrointestinal hemorrhage, unspecified
[2016-06-11] MEDS: MAGNESIUM SULFATE 1GM / D5W 1 GM in PREMIXED IN D5W 100 ML IV SCH ×2 (01:19→02:35)
[2016-06-11] MEDS: ACETAMINOPHEN 325 MG TAB PO PRN ×2 (05:07→20:50)
[2016-06-11] MEDS: FLUTICASONE/SALMETEROL 250/50 (ADVAIR) 14 PUFF/1 INHALER INH SCH ×2 (08:32→20:15)
[2016-06-11] MEDS: FUROSEMIDE 40 MG TAB PO SCH (08:33)
[2016-06-11] MEDS: METOPROLOL TARTRATE 25 MG TAB PO SCH ×2 (08:34→20:15)
[2016-06-11] MEDS: FERROUS SULFATE 325 MG TAB PO SCH (08:34)
[2016-06-11 08:43] LABS: BASO % 0.7 %; BASO ABS # 0.05 K/uL (0-0.2); COMPLETE YES; EOS % 1.9 %; HEMATOCRIT 27.9 % (37-47); HYPOCHROMIA PRESENT; IG% 0.4 %; LYMPH % 15.5 %; LYMPH ABS # 1.04 K/uL (1.2-3.4); MEAN CELL VOLUME 69.2 fL (80-100); MEAN CORPUSCULAR HEMOGLOBIN 18.9 pg (25-34); MEAN CORPUSCULAR HGB CONC 27.2 g/dl (32-36); MICROCYTOSIS PRESENT; NEUT % 70.5 %; PLATELET COUNT 228 K/uL (130-400); POLYCHROMASIA 1+; RED BLOOD COUNT 4.03 M/uL (4.2-5.4); TARGET CELLS 1+; WHITE BLOOD COUNT 6.73 K/uL (4.8-10.8)
[2016-06-11 08:52] LABS: BUN/CREATININE RATIO 20.9 (10-20); CALCIUM 7.8 mg/dl (8.5-10.1); CREATININE 0.82 mg/dl (0.60-1.20); MAGNESIUM 1.8 mg/dl (1.8-2.4); POTASSIUM 3.9 mmol/L (3.5-5.1)
[2016-06-11] MEDS: DOXYCYCLINE IV 100 MG in DEXTROSE 5% 100ML 100 ML IV SCH ×2 (08:59→20:15)
[2016-06-11] MEDS: INSULIN ASPART 100 UNITS/ML 3 ML PEN SC SCH ×4 (09:03→20:50)
[2016-06-11] MEDS ORDERED: NURSING VERBAL MED ORDER ONE (10:45)
[2016-06-11 12:16] LABS: HEMATOCRIT 28.9 % (37-47)
--- NOTE | 2016-06-11 12:43 | Gastrointestinal Consultation ---
Gastrointestinal Consultation Date of Consultation: Jun 11, 2016 Attending Physician: Nathan Blanco Consulting Physician: Doug Hinkle Reason for Consultation: Anemia , occult GI bleed History of Present Illness Patient is a 75 year old female w PMHx of COPD on home O2 HS, hx of tobacco abuse, chronic diastolic HF, chronic anemia, DM II, PVD who was sent to ED by her PCP after noted to have outpt lab showing Hgb of 6.5.. She had came to clinic w c/o dyspnea on exertion, fatigue. Denies any CP. She does have chronic leg edema from PVD but denies any recent increase in weight. She denies any n/v , abd pain, dark stools. Repeat CBC here showed H/H of 6.7/27.9. Mild elevation of BUN noted but Cr. normal. INR 1.3, she is not on any anticoagulant. Her hemoccult in ED was positive but repeat stool occult study today was negative. She did have hx of chronic anemia and remembered used to getting blood transfusions on outpt setting. She was offered endoscopic evals in the past and had refused them. Past Medical/Surgical History Medical Problems: (1) Cellulitis of right lower extremity Status: Acute (2) Dependent edema Status: Acute (3) Edema of both feet Status: Acute (4) Edema of hand Status: Acute (5) GI bleed Status: Acute (6) Lower extremity ulceration Status: Acute (7) UTI (urinary tract infection) Status: Acute Past Medical History: See HPI above Past Surgical History: Total hysterectomy Tonsillectomy and adenoidectomy L knee replacement Cataract surgery Family History Diabetes mellitus MOTHER SISTER FH: CAD (coronary artery disease) MOTHER BROTHER FH: lung cancer BROTHER Social History Smoking Status: Former Smoker Alcohol Use: none Drug Use: none Marital Status: single Housing Status: lives alone Occupation Status: retired Allergies Coded Allergies: Cephalosporins (Verified Allergy, Unknown, 06/10/16) Ciprofloxacin (Verified Allergy, Unknown, RASH, 06/10/16) Clindamycin (Verified Allergy, Unknown, RASH, 06/10/16) Erythromycin (Verified Allergy, Unknown, 06/10/16) Metformin (Unverified Allergy, Unknown, EDEMA FACE AND HANDS, ITCHY, ) Penicillins (Verified Allergy, Unknown, 06/10/16) Sulfa Antibiotics (Verified Allergy, Unknown, ., 06/10/16) Current Medications Home Meds and Scripts Medications Dose Route/Sig Max Daily Dose Days Date Category Dose Instructions Lasix (Furosemide) 40 Mg Tab 40 Mg PO DAILY 06/10/16 Reported Ferrous Sulfate 325 Mg Tab 325 Mg PO DAILY WITH BREAKFAST 06/10/16 Reported Novolog (Insulin Aspart) 100 Units/Ml Inj 12 Units SQ LUNCH 06/10/16 Reported PLUS SLIDING SCALE Novolog (Insulin Aspart) 100 Units/Ml Inj 10 Units SQ BIDM 06/10/16 Reported PLUS SLIDING SCALE Lantus (Insulin Glargine) 100 Unit/Ml Inj 50 Units SC HS 06/10/16 Reported Apresoline (Hydralazine Hcl) 25 Mg Tab 25 Mg PO TID 12/03/15 Rx Lopressor (Metoprolol Tartrate) 25 Mg Tab 25 Mg PO BID 12/03/15 Rx Micro-K Ext Rel (Potassium Chloride) 10 Meq Capcr 10 Meq PO DAILY 12/03/15 Rx Oxygen Gas 2 Liters NA HS 11/26/15 Reported Simvastatin 20 Mg Tab 20 Mg PO HS 11/26/15 Reported Zestril (Lisinopril) 40 Mg Tab 40 Mg PO HS 11/26/15 Reported Combivent Respimat (Ipratropium-Albuterol) 1 Aer Aer 1 Puffs INH QID 08/28/13 Reported Aspirin Ec (Aspirin) 81 Mg Tab 81 Mg PO DAILY 11/15/12 Reported Prilosec (Omeprazole) 20 Mg Cap 20 Mg PO HS 09/21/12 Reported Tylenol (Acetaminophen) 500 Mg Tab 1,000 Mg PO Q8 PRN 09/21/12 Reported Advair Diskus 250/50 60 Dose (Fluticasone Prop/Salmeterol) 1 Ea Aerp 1 Puff INH BID 09/21/12 Reported Review of Systems Constitutional: + fatigue, No fever Respiratory: + dyspnea on exertion, No cough, No shortness of breath Cardiac: + edema, No chest pain Abdomen: No GI bleeding, No constipation, No diarrhea, No nausea, No pain, No vomiting Skin: + problem reported (weeping lower leg sores ) Physical Exam Date Time Temp Pulse Resp B/P Pulse Ox O2 Delivery O2 Flow Rate FiO2 06/11/16 11:47 36.7 76 20 140/71 96 Nasal Cannula 9.0 06/11/16 08:00 93 Nasal Cannula 2.0 06/11/16 07:39 36.4 102 18 141/69 93 Nasal Cannula 2.0 06/11/16 05:55 36.5 70 22 131/79 97 06/11/16 04:55 36.7 71 20 134/80 96 06/11/16 04:00 Nasal Cannula 2.0 06/11/16 03:55 36.9 73 20 130/61 98 06/11/16 03:25 37.0 88 20 136/78 96 06/11/16 02:55 36.6 86 50 133/76 96 06/11/16 02:40 36.5 64 20 145/55 95 06/11/16 02:25 36.6 72 20 152/76 06/11/16 02:05 36.7 72 20 157/83 96 06/11/16 01:25 72 142/83 06/11/16 01:05 36.9 73 20 124/55 98 06/11/16 00:21 88 18 98 Nasal Cannula 2.0 06/11/16 00:05 36.6 105 20 145/86 98 06/11/16 00:00 Nasal Cannula 2.0 06/10/16 23:35 36.7 105 20 176/83 98 06/10/16 23:20 36.7 97 20 159/86 97 06/10/16 23:02 36.3 73 20 172/76 98 06/10/16 22:14 36.5 79 18 167/86 96 Nasal Cannula 2.0 06/10/16 21:41 36.5 79 18 167/86 94 Nasal Cannula 2.0 06/10/16 21:00 105 23 158/82 98 06/10/16 20:30 105 23 158/82 98 Nasal Cannula 2.0 06/10/16 19:08 93 Nasal Cannula 3.0 06/10/16 19:07 87 Room Air 06/10/16 19:01 121 06/10/16 18:28 69 31 06/10/16 18:23 69 25 06/10/16 17:59 94 Room Air 06/10/16 17:14 36.7 119 18 138/73 91 Room Air General Appearance: WD/WN, no apparent distress, + thin Eyes: normal inspection, PERRL, EOMI Neck: supple, no JVD, trachea midline Respiratory/Chest: no respiratory distress, no accessory muscle use, + decreased breath sounds Cardiovascular: regular rate, rhythm, no gallop, no murmur Extremities: + swelling, + pertinent finding (bilateral lower legs w sores, clear fluid weeping.) Neurologic/Psych: alert, normal mood/affect, oriented x 3 Skin: normal color, no jaundice, no rash Laboratory Results Last 24 Hours Test 06/10/16 18:06 06/10/16 18:42 06/10/16 20:20 06/10/16 20:23 White Blood Count 8.88 K/uL Red Blood Count 3.76 M/uL Hemoglobin 6.7 g/dL Hematocrit 25.2 % Mean Corpuscular Volume 67.0 fL Mean Corpuscular Hemoglobin 17.8 pg Mean Corpuscular Hemoglobin Concent 26.6 g/dl Platelet Count 263 K/uL Neutrophils (%) (Auto) 72.9 % Lymphocytes (%) (Auto) 17.8 % Monocytes (%) (Auto) 6.9 % Eosinophils (%) (Auto) 1.7 % Basophils (%) (Auto) 0.6 % Neutrophils # (Auto) 6.48 K/uL Lymphocytes # (Auto) 1.58 K/uL Monocytes # (Auto) 0.61 K/uL Eosinophils # (Auto) 0.15 K/uL Basophils # (Auto) 0.05 K/uL RDW Standard Deviation 51.6 fL RDW Coefficient of Variation 21.2 % Immature Granulocyte % (Auto) 0.1 % Immature Granulocyte # (Auto) 0.01 K/uL Hypochromasia PRESENT Anisocytosis PRESENT Microcytosis PRESENT Macrocytosis PRESENT Prothrombin Time 13.6 SECONDS Prothromb Time International Ratio 1.3 Activated Partial Thromboplast Time 25.4 SECONDS Partial Thromboplastin Ratio 1.0 Sodium Level 147 mmol/L Potassium Level 4.1 mmol/L Chloride Level 107 mmol/L Carbon Dioxide Level 33 mmol/L Anion Gap 7.0 mmol/L Blood Urea Nitrogen 20 mg/dl Creatinine 0.93 mg/dl Estimated GFR () 70.2 Estimated GFR (Non- 60.5 BUN/Creatinine Ratio 21.1 Random Glucose 57 mg/dl Calcium Level 7.7 mg/dl Magnesium Level 1.1 mg/dl Total Bilirubin 0.5 mg/dl Direct Bilirubin 0.2 mg/dl Aspartate Amino Transf (AST/SGOT) 20 U/L Alanine Aminotransferase (ALT/SGPT) 10 U/L Alkaline Phosphatase 110 U/L Troponin I < 0.015 ng/ml Total Protein 6.7 gm/dl Albumin 2.8 gm/dl Lipase 168 U/L Thyroid Stimulating Hormone (TSH) 1.340 uIu/ml Urine Color YELLOW Urine Appearance CLEAR Urine pH 8.5 Urine Specific [place] 1.016 Urine Protein TRACE Urine Glucose (UA) NEG Urine Ketones NEG Urine Occult Blood NEG Urine Nitrite NEG Urine Bilirubin NEG Urine Urobilinogen NEG Urine Leukocyte Esterase MODERATE Urine WBC (Auto) >30 /hpf Urine RBC (Auto) 0-4 /hpf Urine Hyaline Casts (Auto) 1-5 /lpf Urine Epithelial Cells (Auto) 10-20 /lpf Urine Bacteria (Auto) NEG Arterial Blood pH 7.48 Arterial Blood Partial Pressure CO2 44 mmHg Arterial Blood Partial Pressure O2 92 mm/Hg Arterial Blood HCO3 33 mmol/L Arterial Blood Oxygen Saturation 93.6 % Arterial Blood Base Excess 8.3 mEq/L Arterial Blood Gas Delivery 2L Vick Test POS Bedside Glucose 78 mg/dl Test 06/10/16 20:59 06/11/16 00:30 06/11/16 07:24 06/11/16 08:03 Bedside Glucose 148 mg/dl 86 mg/dl 89 mg/dl White Blood Count 6.73 K/uL Red Blood Count 4.03 M/uL Hemoglobin 7.6 g/dL Hematocrit 27.9 % Mean Corpuscular Volume 69.2 fL Mean Corpuscular Hemoglobin 18.9 pg Mean Corpuscular Hemoglobin Concent 27.2 g/dl Platelet Count 228 K/uL Neutrophils (%) (Auto) 70.5 % Lymphocytes (%) (Auto) 15.5 % Monocytes (%) (Auto) 11.0 % Eosinophils (%) (Auto) 1.9 % Basophils (%) (Auto) 0.7 % Neutrophils # (Auto) 4.74 K/uL Lymphocytes # (Auto) 1.04 K/uL Monocytes # (Auto) 0.74 K/uL Eosinophils # (Auto) 0.13 K/uL Basophils # (Auto) 0.05 K/uL RDW Standard Deviation 54.2 fL RDW Coefficient of Variation 21.4 % Immature Granulocyte % (Auto) 0.4 % Immature Granulocyte # (Auto) 0.03 K/uL Polychromasia 1+ Hypochromasia PRESENT Microcytosis PRESENT Target Cells 1+ Sodium Level 145 mmol/L Potassium Level 3.9 mmol/L Chloride Level 104 mmol/L Carbon Dioxide Level 31 mmol/L Anion Gap 10.0 mmol/L Blood Urea Nitrogen 17 mg/dl Creatinine 0.82 mg/dl Est Creatinine Clear Calc Drug Dose 49.8 ml/min Estimated GFR () 81.7 Estimated GFR (Non- 70.5 BUN/Creatinine Ratio 20.9 Random Glucose 74 mg/dl Calcium Level 7.8 mg/dl Magnesium Level 1.8 mg/dl Test 06/11/16 09:25 06/11/16 11:50 Stool Occult Blood NEGATIVE Hemoglobin 7.9 g/dL Hematocrit 28.9 % Impression Patient is a 75 year old female currently seen for symptomatic anemia. Her Hgb on admission was 6.7, improved to 7.6 after 2U PRBC. She has no s/s of ruy GI bleeding or hematuria, bleeding wounds. She did have positive hemoccult in ED but repeat stool occult blood was negative. She denies any abd pain, n/v. Never had EGD or colonoscopy evals before. Plan - Recommend EGD/Colonoscopy eval to r/o source of GI bleed causing her anemia but pt refuses again this time. - Continue Protonix 40mg BID - Advance diet as tolerated - Check iron screen, FA, B12 - GI will sign off; pls call if new questions or concerns arise. I performed a history and physical examination of the patient. I have discussed the patient's case, impression and plan with TRACI Springer. Her note reflects my findings and plan. Discussed with aptient and son at bedside. Patient does not want any endoscopy. I recommend continuing daily PPI and her PCP should follow her H/H as an out patient monthly. Doug Hinkle MD
[2016-06-11] MEDS: MICONAZOLE NITRATE POWDER 43 GM EXT PRN ×2 (14:00→20:50)
[2016-06-11 14:09] LABS: TOTAL IRON BINDING CAPACITY 380 mcg/dl (250-450)
--- NOTE | 2016-06-11 15:27 | Progress Note ---
Medicine Progress Note Date & Time of Visit: Jun 11, 2016 at 14:49. Subjective Pt was seen and examined Lying in bed with no distress Pt said that she feels better today she wants to go home she said that she does not have any bloody stool she denies any chest pain, palpitation, dizziness and SOB Objective Last 8 Hrs Date Time Temp Pulse Resp B/P Pulse Ox O2 Delivery O2 Flow Rate FiO2 06/11/16 12:00 93 Room Air 06/11/16 11:47 36.7 76 20 140/71 96 Nasal Cannula 9.0 06/11/16 08:00 93 Nasal Cannula 2.0 06/11/16 07:39 36.4 102 18 141/69 93 Nasal Cannula 2.0 Physical Exam: General- obese, no acute distress Head- atraumatic Eyes- PERRL, EOMI ENT- oropharynx clear Neck- supple, no JVD Lungs- clear to auscultation and percussion Heart- regular rhythm; no murmur Abdomen- normal bowel sounds, soft, nontender, obese Extremities- +edema, legs tenderness with erythema with area of sipping. Neuro- alert, oriented, PERRL, EOMI Skin- warm & dry Laboratory Results: Last 24 Hours Test 06/10/16 18:06 06/10/16 18:42 06/10/16 20:20 06/10/16 20:23 White Blood Count 8.88 K/uL Red Blood Count 3.76 M/uL Hemoglobin 6.7 g/dL Hematocrit 25.2 % Mean Corpuscular Volume 67.0 fL Mean Corpuscular Hemoglobin 17.8 pg Mean Corpuscular Hemoglobin Concent 26.6 g/dl Platelet Count 263 K/uL Neutrophils (%) (Auto) 72.9 % Lymphocytes (%) (Auto) 17.8 % Monocytes (%) (Auto) 6.9 % Eosinophils (%) (Auto) 1.7 % Basophils (%) (Auto) 0.6 % Neutrophils # (Auto) 6.48 K/uL Lymphocytes # (Auto) 1.58 K/uL Monocytes # (Auto) 0.61 K/uL Eosinophils # (Auto) 0.15 K/uL Basophils # (Auto) 0.05 K/uL RDW Standard Deviation 51.6 fL RDW Coefficient of Variation 21.2 % Immature Granulocyte % (Auto) 0.1 % Immature Granulocyte # (Auto) 0.01 K/uL Hypochromasia PRESENT Anisocytosis PRESENT Microcytosis PRESENT Macrocytosis PRESENT Prothrombin Time 13.6 SECONDS Prothromb Time International Ratio 1.3 Activated Partial Thromboplast Time 25.4 SECONDS Partial Thromboplastin Ratio 1.0 Sodium Level 147 mmol/L Potassium Level 4.1 mmol/L Chloride Level 107 mmol/L Carbon Dioxide Level 33 mmol/L Anion Gap 7.0 mmol/L Blood Urea Nitrogen 20 mg/dl Creatinine 0.93 mg/dl Estimated GFR () 70.2 Estimated GFR (Non- 60.5 BUN/Creatinine Ratio 21.1 Random Glucose 57 mg/dl Calcium Level 7.7 mg/dl Magnesium Level 1.1 mg/dl Total Bilirubin 0.5 mg/dl Direct Bilirubin 0.2 mg/dl Aspartate Amino Transf (AST/SGOT) 20 U/L Alanine Aminotransferase (ALT/SGPT) 10 U/L Alkaline Phosphatase 110 U/L Troponin I < 0.015 ng/ml Total Protein 6.7 gm/dl Albumin 2.8 gm/dl Lipase 168 U/L Thyroid Stimulating Hormone (TSH) 1.340 uIu/ml Urine Color YELLOW Urine Appearance CLEAR Urine pH 8.5 Urine Specific Groom 1.016 Urine Protein TRACE Urine Glucose (UA) NEG Urine Ketones NEG Urine Occult Blood NEG Urine Nitrite NEG Urine Bilirubin NEG Urine Urobilinogen NEG Urine Leukocyte Esterase MODERATE Urine WBC (Auto) >30 /hpf Urine RBC (Auto) 0-4 /hpf Urine Hyaline Casts (Auto) 1-5 /lpf Urine Epithelial Cells (Auto) 10-20 /lpf Urine Bacteria (Auto) NEG Arterial Blood pH 7.48 Arterial Blood Partial Pressure CO2 44 mmHg Arterial Blood Partial Pressure O2 92 mm/Hg Arterial Blood HCO3 33 mmol/L Arterial Blood Oxygen Saturation 93.6 % Arterial Blood Base Excess 8.3 mEq/L Arterial Blood Gas Delivery 2L Vick Test POS Bedside Glucose 78 mg/dl Test 06/10/16 20:59 06/11/16 00:30 06/11/16 07:24 06/11/16 08:03 Bedside Glucose 148 mg/dl 86 mg/dl 89 mg/dl White Blood Count 6.73 K/uL Red Blood Count 4.03 M/uL Hemoglobin 7.6 g/dL Hematocrit 27.9 % Mean Corpuscular Volume 69.2 fL Mean Corpuscular Hemoglobin 18.9 pg Mean Corpuscular Hemoglobin Concent 27.2 g/dl Platelet Count 228 K/uL Neutrophils (%) (Auto) 70.5 % Lymphocytes (%) (Auto) 15.5 % Monocytes (%) (Auto) 11.0 % Eosinophils (%) (Auto) 1.9 % Basophils (%) (Auto) 0.7 % Neutrophils # (Auto) 4.74 K/uL Lymphocytes # (Auto) 1.04 K/uL Monocytes # (Auto) 0.74 K/uL Eosinophils # (Auto) 0.13 K/uL Basophils # (Auto) 0.05 K/uL RDW Standard Deviation 54.2 fL RDW Coefficient of Variation 21.4 % Immature Granulocyte % (Auto) 0.4 % Immature Granulocyte # (Auto) 0.03 K/uL Polychromasia 1+ Hypochromasia PRESENT Microcytosis PRESENT Target Cells 1+ Sodium Level 145 mmol/L Potassium Level 3.9 mmol/L Chloride Level 104 mmol/L Carbon Dioxide Level 31 mmol/L Anion Gap 10.0 mmol/L Blood Urea Nitrogen 17 mg/dl Creatinine 0.82 mg/dl Est Creatinine Clear Calc Drug Dose 49.8 ml/min Estimated GFR () 81.7 Estimated GFR (Non- 70.5 BUN/Creatinine Ratio 20.9 Random Glucose 74 mg/dl Calcium Level 7.8 mg/dl Magnesium Level 1.8 mg/dl Test 06/11/16 09:25 06/11/16 11:50 06/11/16 12:00 06/11/16 13:10 Stool Occult Blood NEGATIVE Hemoglobin 7.9 g/dL Hematocrit 28.9 % Bedside Glucose 103 mg/dl Test 06/11/16 13:30 Iron Level 38 mcg/dl Total Iron Binding Capacity 380 mcg/dl Transferrin 295 mg/dl Transferrin % Saturation 9 % Assessment & Plan Symptomatic anemia Hgb on admission 6.7 received 2 units PRBC Most recent hgb 7.9 FOBT negative GI consulted Recommend EGD/Colonoscopy eval to r/o source of GI bleed. Pt refused scope. will continue monitor h/h continue PPI Hypertension Continue current therapy Continue monitor BP Chronic diastolic heart failure Continue lasix, metoprolol, lisinopril Stable B/L lower extremity erythema/tenderness and swelling Possible related to stasis vs cellulitis Stasis due to chronic venous insufficiency Continue lasix Was started on doxycycline Pt refused venous doppler of LE to r/o any DVT she said that she had so many of them in the past and they all came back negative for DVT DM type 2 Most recent hba1c was 5 (06/10/16 Insulin has been on hold will consult pharmacy SOB Possible related to COPD vs symptomatic anemia vs obesity on home O2 at [facility] Continue oxygen supplement Continue advair and respiratory treatment DVT px on SCD due to GI bleed CODE STATUS FULL CODE Current Inpatient Medications: Current Inpatient Medications Medications (Trade) Dose Ordered Sig/Toro Route Start Time Stop Time Status Last Admin Dose Admin Doxycycline Hyclate/Dextrose (Vibramycin IV/ D5 100ml) 110 ml @ 50 mls/hr BID IV 06/10/16 22:30 06/20/16 22:29 06/11/16 08:59 50 MLS/HR Acetaminophen (Tylenol Tab) 650 mg Q4H PRN PO 06/10/16 20:45 07/10/16 20:44 06/11/16 05:07 650 MG Nitroglycerin (Nitrostat Tab) 0.4 mg UD PRN SL 06/10/16 20:45 07/10/16 20:44 Insulin Aspart (novoLOG ASPART) SLIDING SCALE If C... ACHS SC 06/10/16 21:00 07/10/16 20:59 Glucose (Glucose 40% Gel) 15-30 GRAMS 15 GRAMS... UD PRN PO 06/10/16 20:45 07/10/16 20:44 Glucose (Glucose Chew Tab) 4-8 Tablets 4 Tabl... UD PRN PO 06/10/16 20:45 07/10/16 20:44 Dextrose (Dextrose 50% 50ML Syringe) 25-50ML OF 50% DW IV FOR... UD PRN IV 06/10/16 20:45 07/10/16 20:44 Glucagon (Glucagon Inj) 1 mg UD PRN SQ 06/10/16 20:45 07/10/16 20:44 Ferrous Sulfate (Feosol Tab) 325 mg DAILY PO 06/11/16 09:00 07/11/16 08:59 06/11/16 08:34 325 MG Salmeterol Xinafoate/ Fluticasone (Advair Diskus 250/50 Inh) 1 puff BID INH 06/10/16 21:00 07/10/16 20:59 06/11/16 08:32 1 PUFF Furosemide (Lasix Tab) 40 mg DAILY PO 06/11/16 09:00 07/11/16 08:59 06/11/16 08:33 40 MG Hydralazine HCl (Apresoline Tab) 25 mg TID PO 06/10/16 21:00 07/10/16 20:59 06/11/16 13:42 25 MG Lisinopril (Zestril Tab) 40 mg HS PO 06/10/16 21:00 07/10/16 20:59 06/10/16 23:38 40 MG Metoprolol Tartrate (Lopressor Tab) 25 mg BID PO 06/10/16 21:00 07/10/16 20:59 06/11/16 08:34 25 MG Simvastatin (Zocor Tab) 20 mg HS PO 06/10/16 21:00 07/10/16 20:59 06/10/16 23:37 20 MG Pantoprazole Sodium (Protonix Tab) 40 mg HS PO 06/10/16 21:00 07/10/16 20:59 06/10/16 23:36 40 MG Hydromorphone HCl (Dilaudid Inj) 0.5 mg Q3H PRN IV 06/10/16 20:45 06/24/16 20:44 Tramadol HCl 25 mg 25 mg Q6H PRN PO 06/10/16 20:45 07/10/16 20:44 Promethazine HCl/ Sodium Chloride (Phenergan Inj/ Nss 50ml) 50.5 ml @ 204 mls/hr Q6H PRN IV 06/10/16 20:45 07/10/16 20:44 Ipratropium [place] (Atrovent 0.02% 0.5MG/2.5ML Neb) 0.5 mg Q4H PRN INH 06/10/16 22:30 07/10/16 22:29 Levalbuterol (Xopenex 1.25MG/ 0.5ML Neb) 1.25 mg Q4H PRN INH 06/10/16 22:30 07/10/16 22:29 Miconazole Nitrate (Desenex Powder) 1 appln PRN PRN EXT 06/11/16 11:00 07/11/16 10:59 06/11/16 14:00 1 APPLN
[2016-06-11] MEDS: SIMVASTATIN 20 MG TAB PO SCH (20:15)
[2016-06-11] MEDS: PANTOprazole SOD 40 MG TAB PO SCH (20:15)
[2016-06-11] MEDS: LISINOPRIL 40 MG TAB PO SCH (20:16)
[2016-06-11 22:55] LABS: HEMATOCRIT 28.8 % (37-47)
[2016-06-12] VITALS (13 sets, daily range): BP systolic 99–159; BP diastolic 49–82; PULSE 50–117; TEMP 36.4–37.2; O2SAT 93–100
[2016-06-12] MEDS ORDERED: GLUCOSE 10 TABS/TUBE PO PRN (00:45)
[2016-06-12] MEDS ORDERED: DEXTROSE 50% 50 ML SYR IV PRN (00:45)
[2016-06-12] MEDS ORDERED: GLUCOSE 40% GEL 15 GM TUBE PO PRN (00:45)
[2016-06-12] MEDS ORDERED: GLUCAGON FOR INJ 1 MG VIAL SQ PRN (00:45)
[2016-06-12] MEDS ORDERED: PHARMACY GLYCEMIC MGMT CONSULT PRN (01:15)
[2016-06-12 06:25] LABS: HEMATOCRIT 28.2 % (37-47); MEAN CELL VOLUME 69.3 fL (80-100); MEAN CORPUSCULAR HEMOGLOBIN 18.7 pg (25-34); PLATELET COUNT 215 K/uL (130-400); RED BLOOD COUNT 4.07 M/uL (4.2-5.4); WHITE BLOOD COUNT 6.73 K/uL (4.8-10.8)
[2016-06-12 06:47] LABS: BUN/CREATININE RATIO 17.1 (10-20); CREATININE 0.84 mg/dl (0.60-1.20); POTASSIUM 3.5 mmol/L (3.5-5.1)
[2016-06-12] MEDS: DOXYCYCLINE IV 100 MG in DEXTROSE 5% 100ML 100 ML IV SCH (08:00)
[2016-06-12 08:03] LABS: ANISOCYTOSIS PRESENT; BASO % 0.9 %; BASO ABS # 0.06 K/uL (0-0.2); COMPLETE YES; EOS % 3.4 %; IG% 0.1 %; LYMPH % 10.7 %; LYMPH ABS # 0.72 K/uL (1.2-3.4); MICROCYTOSIS PRESENT; MONO % 8.9 %; SPHEROCYTE 1+
[2016-06-12] MEDS: METOPROLOL TARTRATE 25 MG TAB PO SCH (08:06)
[2016-06-12] MEDS: FERROUS SULFATE 325 MG TAB PO SCH (08:06)
[2016-06-12] MEDS: FLUTICASONE/SALMETEROL 250/50 (ADVAIR) 14 PUFF/1 INHALER INH SCH (08:07)
[2016-06-12] MEDS: FUROSEMIDE 40 MG TAB PO SCH (08:07)
[2016-06-12] MEDS: INSULIN ASPART 100 UNITS/ML 3 ML PEN SC SCH ×3 (08:47→16:30)
[2016-06-12] MEDS ORDERED: POTASSIUM CHLORIDE 10 MEQ TABCR PO ONE (09:00)
--- NOTE | 2016-06-12 09:55 | Pharmacy Progress Note ---
Glycemic Control Intl Consult Date of Service Jun 12, 2016. Scope Glycemic Pharmacist consulted by Dr Blanco on 06/12/16 for glycemic control and to write orders per [facility] inpatient glycemic control protocol Objective Weight (Kilograms): 125.300 Accuchecks BSG (last 24hrs): Test 06/11/16 12:00 06/11/16 16:19 06/11/16 20:32 06/12/16 05:50 Bedside Glucose 103 mg/dl (70-90) 111 mg/dl (70-90) 111 mg/dl (70-90) Random Glucose 94 mg/dl (70-99) Test 06/12/16 07:27 Bedside Glucose 105 mg/dl (70-90) Laboratory Data (last 24hrs) Test 06/12/16 05:50 Anion Gap 7.0 mmol/L BUN/Creatinine Ratio 17.1 Blood Urea Nitrogen 14 mg/dl Creatinine 0.84 mg/dl Potassium Level 3.5 mmol/L Sodium Level 145 mmol/L White Blood Count 6.73 K/uL Red Blood Count 4.07 M/uL Hemoglobin 7.6 g/dL Hematocrit 28.2 % Mean Corpuscular Volume 69.3 fL Mean Corpuscular Hemoglobin 18.7 pg Mean Corpuscular Hemoglobin Concent 27.0 g/dl Platelet Count 215 K/uL Neutrophils (%) (Auto) 76.0 % Lymphocytes (%) (Auto) 10.7 % Monocytes (%) (Auto) 8.9 % Eosinophils (%) (Auto) 3.4 % Basophils (%) (Auto) 0.9 % Neutrophils # (Auto) 5.11 K/uL Lymphocytes # (Auto) 0.72 K/uL Monocytes # (Auto) 0.60 K/uL Eosinophils # (Auto) 0.23 K/uL Basophils # (Auto) 0.06 K/uL HbA1c 5.8% on 11/27/15 Recent Pertinent Medications Outpatient Anti-diabetic Regimen: * Lantus 50 units HS; Novolog 10 units with breakfast and dinner, 12 units with lunch * A1c = 5.8 % 11/27/15 - pt had PRBC this admission, therefore no updated A1c The patient is currently receiving: * Correctional Insulin: Novolog Correction per scale ACHS Goal Range: Low 140 mg/dL - High 180 mg/dL Correction Factor: 75 mg/dL/unit * Prandial insulin: Per carb ratio of 1 unit per 25 grams CHO consumed Risk Factors for Insulin Resistance: * Infection: IV Doxycycline for B/L LE erythema/tenderness & swelling, pt refused doppler * Diet: Low Fiber, Type 2 DM started today (NPO yesterday) Assessment & Plan ASSESSMENT: * ADA & AACE recommend a goal blood sugar range 140-180 mg/dl for the majority of critically ill & non-critically ill patients. However, more stringent targets may be selected in individual cases. 06/12/16 * Type 2 Diabetic, unknown control, A1c at 5.8% in November, but patient has received PRBCs for anemia so no new A1c ordered at this time. Patient has been having hypoglycemia as outpatient, decreased PO intake. Lantus dose had been reduced by PCP on day of admission. Admitted with BSG 57mg/dL. Patient has required 0 units of insulin yesterday. * Diet just resumed today, I will continue a very loose CF and CR until BSGs trend up. Hold Lantus also at this time and follow closely, restart when BSGs go over goal range. PLAN FOR INPATIENT GLYCEMIC CONTROL: * Correctional Insulin with NOVOLOG per scale ACHS or Q6hrs while NPO * Goal Range: Low 140 mg/dL - High 180 mg/dL * Correction Factor: 75 mg/dL/unit * Nutritional / Prandial insulin per carb ratio of 1 unit per 25 grams CHO consumed * Please note that the plan above was derived based on current level of insulin resistance and hospital stress. These recommendations are appropriate for inpatient admission only. Plan of care upon discharge will need to be reassessed to avoid potential outpatient hypo/hyperglycemia. Thank you.
--- NOTE | 2016-06-12 10:21 | Cardiology Consultation ---
Cardiology Consultation Cardiology consultation was requested for new onset atrial fibrillation. EKGs x 2 and telemetry were reviewed with Dr Blanco in person. Pt with findings of sinus rhythm and sinus tachycardia with frequent PACs. Although preliminary computer software interpretation of the EKG tracing performed 06/12/16 at 840am was that of atrial fibrillation, per my personal interpretation, EKG =Sinus rhythm with PACs. Pt with Hgb of 7.6 g/dl. Recommend transfusion and increasing metoprolol tartrate from 25 mg BID to 37.5 mg BID, with hold for HR < 60 bpm, and SBP <100 bpm. Pt was not seen or examined. Telemetry, EKG, vitals , and labs were reviewed. Pt will not be charged for a consultation.
--- NOTE | 2016-06-12 14:01 | Progress Note ---
Medicine Progress Note Date & Time of Visit: Jun 12, 2016 at 13:46. Subjective Pt was seen and examined Sitting in bed comfortable with no distress Pt seems upset because she wants to go home she said that she is not going to stay for later she said that she feels fine. She denies any chest pain, palpitation, dizziness and SOB Objective Last 8 Hrs Date Time Temp Pulse Resp B/P Pulse Ox O2 Delivery O2 Flow Rate FiO2 06/12/16 13:15 36.6 70 18 135/73 93 4.0 06/12/16 12:15 36.7 99 20 126/74 06/12/16 12:00 Nasal Cannula 3.0 06/12/16 11:15 36.6 62 18 113/59 100 3.0 06/12/16 11:15 36.6 62 18 113/59 100 3.0 06/12/16 10:45 36.6 73 18 143/82 100 3.0 06/12/16 10:15 36.6 74 18 107/72 98 3.0 06/12/16 10:00 36.6 117 18 110/67 100 3.0 06/12/16 09:45 37.2 50 20 99/49 06/12/16 08:00 76 149/75 06/12/16 08:00 Nasal Cannula 2.0 06/12/16 07:44 36.4 78 20 133/67 97 Physical Exam: General- obese, no acute distress Head- atraumatic Eyes- PERRL, EOMI ENT- oropharynx clear Neck- supple, no JVD Lungs- clear to auscultation and percussion Heart- regular rhythm; no murmur Abdomen- normal bowel sounds, soft, nontender, obese Extremities- +edema, legs tenderness with erythema improved, no drainage Neuro- alert, oriented, PERRL, EOMI Skin- warm & dry Laboratory Results: Last 24 Hours Test 06/11/16 16:19 06/11/16 20:32 06/11/16 22:25 06/12/16 05:50 Bedside Glucose 111 mg/dl 111 mg/dl Hemoglobin 7.9 g/dL 7.6 g/dL Hematocrit 28.8 % 28.2 % White Blood Count 6.73 K/uL Red Blood Count 4.07 M/uL Mean Corpuscular Volume 69.3 fL Mean Corpuscular Hemoglobin 18.7 pg Mean Corpuscular Hemoglobin Concent 27.0 g/dl Platelet Count 215 K/uL Neutrophils (%) (Auto) 76.0 % Lymphocytes (%) (Auto) 10.7 % Monocytes (%) (Auto) 8.9 % Eosinophils (%) (Auto) 3.4 % Basophils (%) (Auto) 0.9 % Neutrophils # (Auto) 5.11 K/uL Lymphocytes # (Auto) 0.72 K/uL Monocytes # (Auto) 0.60 K/uL Eosinophils # (Auto) 0.23 K/uL Basophils # (Auto) 0.06 K/uL RDW Standard Deviation 53.8 fL RDW Coefficient of Variation 21.4 % Immature Granulocyte % (Auto) 0.1 % Immature Granulocyte # (Auto) 0.01 K/uL Anisocytosis PRESENT Microcytosis PRESENT Spherocytes 1+ Sodium Level 145 mmol/L Potassium Level 3.5 mmol/L Chloride Level 103 mmol/L Carbon Dioxide Level 35 mmol/L Anion Gap 7.0 mmol/L Blood Urea Nitrogen 14 mg/dl Creatinine 0.84 mg/dl Est Creatinine Clear Calc Drug Dose 75.6 ml/min Estimated GFR () 79.4 Estimated GFR (Non- 68.5 BUN/Creatinine Ratio 17.1 Random Glucose 94 mg/dl Calcium Level 8.0 mg/dl Magnesium Level 1.6 mg/dl Test 06/12/16 07:27 06/12/16 11:04 Bedside Glucose 105 mg/dl 144 mg/dl Assessment & Plan Symptomatic anemia Hgb on admission 6.7 received 2 units PRBC on Hbg last night was 7.9 and today is 7.6 FOBT negative will transfuse 1 more unit prbc today before discharge. GI consulted Recommend EGD/Colonoscopy eval to r/o source of GI bleed. Pt refused scope. Will monitor cbc as an outpatient since pt does not want to stay in the hospital continue PPI Tachycardia with PAC on EKG Possible related to low hgb and low mg Asymptomatic spoke to cardiology recommended to increase metoprolol to 37.5 mg BID with parameters electrolytes replaced Hypertension Continue current therapy Continue monitor BP Satble Chronic diastolic heart failure Continue lasix,lisinopril Metoprolol increased to 37.5 mg Stable B/L lower extremity erythema/tenderness and swelling Possible related to stasis vs cellulitis Stasis due to chronic venous insufficiency Continue lasix Continue doxycycline Pt refused venous doppler of LE to r/o any DVT she said that she had so many of them in the past and they all came back negative for DVT DM type 2 Most recent hba1c was 5 (06/10/16) Lantus has been on hold because BS has been good Her PCP decrease her lantus to 50 units Consider to decrease lantus dose further since BS during the hospital course has been ranging from 78 to 148 with no insulin. pharmacy consulted SOB Possible related to COPD vs symptomatic anemia vs obesity on home O2 at [facility] Continue oxygen supplement Continue advair and respiratory treatment stable DVT px on SCD due to GI bleed CODE STATUS FULL CODE Consultants: [facility] for glycemic management Current Inpatient Medications: Current Inpatient Medications Medications (Trade) Dose Ordered Sig/Toro Route Start Time Stop Time Status Last Admin Dose Admin Doxycycline Hyclate/Dextrose (Vibramycin IV/ D5 100ml) 110 ml @ 50 mls/hr BID IV 06/10/16 22:30 06/20/16 22:29 06/12/16 08:00 50 MLS/HR Acetaminophen (Tylenol Tab) 650 mg Q4H PRN PO 06/10/16 20:45 07/10/16 20:44 06/11/16 20:50 650 MG Nitroglycerin (Nitrostat Tab) 0.4 mg UD PRN SL 06/10/16 20:45 07/10/16 20:44 Glucose (Glucose 40% Gel) 15-30 GRAMS 15 GRAMS... UD PRN PO 06/10/16 20:45 07/10/16 20:44 Glucose (Glucose Chew Tab) 4-8 Tablets 4 Tabl... UD PRN PO 06/10/16 20:45 07/10/16 20:44 Dextrose (Dextrose 50% 50ML Syringe) 25-50ML OF 50% DW IV FOR... UD PRN IV 06/10/16 20:45 07/10/16 20:44 Glucagon (Glucagon Inj) 1 mg UD PRN SQ 06/10/16 20:45 07/10/16 20:44 Ferrous Sulfate (Feosol Tab) 325 mg DAILY PO 06/11/16 09:00 07/11/16 08:59 06/12/16 08:06 325 MG Salmeterol Xinafoate/ Fluticasone (Advair Diskus 250/50 Inh) 1 puff BID INH 06/10/16 21:00 07/10/16 20:59 06/12/16 08:07 1 PUFF Furosemide (Lasix Tab) 40 mg DAILY PO 06/11/16 09:00 07/11/16 08:59 06/12/16 08:07 40 MG Hydralazine HCl (Apresoline Tab) 25 mg TID PO 06/10/16 21:00 07/10/16 20:59 06/12/16 13:22 25 MG Lisinopril (Zestril Tab) 40 mg HS PO 06/10/16 21:00 07/10/16 20:59 06/11/16 20:16 40 MG Simvastatin (Zocor Tab) 20 mg HS PO 06/10/16 21:00 07/10/16 20:59 06/11/16 20:15 20 MG Pantoprazole Sodium (Protonix Tab) 40 mg HS PO 06/10/16 21:00 07/10/16 20:59 06/11/16 20:15 40 MG Hydromorphone HCl (Dilaudid Inj) 0.5 mg Q3H PRN IV 06/10/16 20:45 06/24/16 20:44 Tramadol HCl 25 mg 25 mg Q6H PRN PO 06/10/16 20:45 07/10/16 20:44 Promethazine HCl/ Sodium Chloride (Phenergan Inj/ Nss 50ml) 50.5 ml @ 204 mls/hr Q6H PRN IV 06/10/16 20:45 07/10/16 20:[address] (Atrovent 0.02% 0.5MG/2.5ML Neb) 0.5 mg Q4H PRN INH 06/10/16 22:30 07/10/16 22:29 Levalbuterol (Xopenex 1.25MG/ 0.5ML Neb) 1.25 mg Q4H PRN INH 06/10/16 22:30 07/10/16 22:29 Miconazole Nitrate (Desenex Powder) 1 appln PRN PRN EXT 06/11/16 11:00 07/11/16 10:59 06/11/16 20:50 1 APPLN Insulin Aspart (novoLOG ASPART) SLIDING SCALE If C... ACHS SC 06/12/16 06:30 07/12/16 06:29 06/12/16 08:47 1 UNITS Glucose (Glucose 40% Gel) 15-30 GRAMS 15 GRAMS... UD PRN PO 06/12/16 00:45 07/12/16 00:44 Glucose (Glucose Chew Tab) 4-8 Tablets 4 Tabl... UD PRN PO 06/12/16 00:45 07/12/16 00:44 Dextrose (Dextrose 50% 50ML Syringe) 25-50ML OF 50% DW IV FOR... UD PRN IV 06/12/16 00:45 07/12/16 00:44 Glucagon (Glucagon Inj) 1 mg UD PRN SQ 06/12/16 00:45 07/12/16 00:44 Miscellaneous Information (Consult Glycemic Management Pharmacy) 1 ea UD PRN N/A 06/12/16 01:15 07/12/16 01:14 Metoprolol Tartrate 37.5 mg 37.5 mg BID PO 06/12/16 21:00 07/12/16 20:59 Magnesium Sulfate/ Prmx (Magnesium Sulfate/Premixed D5W) 100 ml @ 100 mls/hr NOW ONCE IV 06/12/16 13:45 06/12/16 14:44 UNV
[2016-06-12] MEDS: MAGNESIUM SULFATE 1GM / D5W 1 GM in PREMIXED IN D5W 100 ML IV SCH (14:52)
[2016-06-12] MEDS ORDERED: DOXY-300 PO (18:04)
--- NOTE | 2016-06-12 18:15 | Discharge Instructions ---
Discharge Instructions Admission Reason for Admission: Symptomatic Anemia Discharge Discharge Diagnosis / Problem: Anemia, tachycardia with PAC, cellulitis, Hypomagnesemia Discharge Goals Goal(s): Decrease discomfort, Improve function, Improve disease control Activity Recommendations Activity Limitations: resume your previous activity (as tolerated) . Instructions / Follow-Up Instructions / Follow-Up Follow up with your primary care physician Dr. Sanchez on Jun 17 at 1:10 pm Check CBC and Magnesium on 06/15 ( Lab order given to patient) Monitor blood sugar (consider to take half dose of the lantus tonight if BS not to high) Hold aspirin for now due to the low hemoglobin, resume after seeing your primary care provider Complete antibiotic course If you develop any bloody stool, chest pain, palpitation, please come back to the ER Current Hospital Diet Patient's current hospital diet: Low Fiber Diet, Diabetes Type 2 Diet Discharge Diet Recommended Diet: Diabetes Type 1 Diet, Low Fiber Diet Pending Studies Studies pending at discharge: no Medical Emergencies . Who to Call and When: Medical Emergencies: If at any time you feel your situation is an emergency, please call 911 immediately. . Non-Emergent Contact Non-Emergency issues call your: Primary Care Provider Call Non-Emergent contact if: you have a fever, you have any medication questions . . "Provider Documentation" section prepared by Nathan Blanco. VTE Core Measure Inpt VTE Proph given/why not?: SCD's
[2016-06-12] MEDS ORDERED: MAGN1TAB19 PO (18:17)
[2016-06-12] MEDS ORDERED: METOPROLOL TARTRATE 25 MG TAB PO SCH (21:00)
--- NOTE | 2016-06-17 06:58 | Discharge Summary ---
Discharge Summary Admission Date: Jun 10, 2016 at 20:01 Discharge Date: Jun 12, 2016 Discharge Disposition: Home Principal Diagnosis: Anemia Secondary Diagnoses/Problems: Symptomatic Anemia Tachycardia with PAC on EKG DM Type Cellulitis of LE Consultations: Gastro Pharmacy for glycemic management Cardio Medication Reconciliation New Medications: Doxycycline (Monohydrate) (Doxycycline) 100 Mg Cap 100 MG PO BID for 5 Days Magnesium Oxide (Mg Supplement (Magnesium Oxide) 400 Mg Tab 400 MG PO DAILY for 30 Days, #30 TAB Continued Medications: Acetaminophen (Tylenol) 500 Mg Tab 1000 MG PO Q8 PRN, TAB Aspirin (Aspirin Ec) 81 Mg Tab 81 MG PO DAILY Ferrous Sulfate (Ferrous Sulfate) 325 Mg Tab 325 MG PO DAILY WITH BREAKFAST Fluticasone Prop/Salmeterol (Advair Diskus 250/50 60 Dose) 1 Ea Aerp 1 PUFF INH BID, INHALER Furosemide (Lasix) 40 Mg Tab 40 MG PO DAILY, TAB Hydralazine Hcl (Apresoline) 25 Mg Tab 25 MG PO TID, #90 TAB 1 Refill Insulin Aspart (Novolog) 100 Units/Ml Inj 10 UNITS SQ BIDM PLUS SLIDING SCALE Insulin Aspart (Novolog) 100 Units/Ml Inj 12 UNITS SQ LUNCH PLUS SLIDING SCALE Insulin Glargine (Lantus) 100 Unit/Ml Inj 50 UNITS SC HS, VIAL Ipratropium-Albuterol (Combivent Respimat) 1 Aer Aer 1 PUFFS INH QID, INH Lisinopril (Zestril) 40 Mg Tab 40 MG PO HS, TAB Metoprolol Tartrate (Lopressor) 25 Mg Tab 25 MG PO BID, #60 TAB 1 Refill Omeprazole (Prilosec) 20 Mg Cap 20 MG PO HS, CAP Oxygen (Oxygen) Gas 2 LITERS NA HS Potassium Chloride (Micro-K Ext Rel) 10 Meq Capcr 10 MEQ PO DAILY, #30 1 Refill Simvastatin (Simvastatin) 20 Mg Tab 20 MG PO HS Admission Information HPI (per Admitting provider): Medical history is significant for chronic respiratory failure secondary to COPD on home O2 at night, past tobacco abuse, CAD as per records, chronic diastolic heart failure (EF of 60-65% 2D echo in 2012), chronic anemia (baseline hemoglobin 9-10 as of 2016), DM2 insulin requiring, chronic venous insufficiency on diuretic therapy. Recent confinement last in November 2015 for diastolic heart failure and lower extremity swelling. In the last 2 weeks the patient noted shortness of breath especially on exertion. Feeling tired. No chest pain. Denies weight gain. Legs; kind of swollen and red with some seepage. painful legs Denies orthopnea. Denies black bloody stools, abdominal pain. Seen at the PCP's office today. Outpatient blood work showed hemoglobin of 6.5 Patient was sent to the Emergency Room. Hemoccult positive in the ER. Physical Exam (per Admitting): PHYSICAL EXAMINATION: VITAL SIGNS: Blood pressure was noted to be 158/82, pulse rate 105, RR 23, sats 87 later 90 on 3 liters. GENERAL: Noted to be uncomfortable. No respiratory distress. Obese. SKIN: Pallor. HEENT: Pale palpebral conjuctivae. Dry mucosa. NECK: Short. LUNGS: Decreased breath sounds. HEART: Tachycardic. ABDOMEN: Some distension, nontender. EXTREMITIES: Bilateral lower extremity erythema/induration, rayray LE tenderness. NEUROLOGIC: No gross focality. Hospital Course Symptomatic anemia Hgb on admission 6.7 received 2 units PRBC on Hbg last night was 7.9 and today is 7.6 FOBT negative will transfuse 1 more unit prbc today before discharge. GI consulted Recommend EGD/Colonoscopy eval to r/o source of GI bleed. Pt refused scope. Will monitor cbc as an outpatient since pt does not want to stay in the hospital continue PPI Tachycardia with PAC on EKG Possible related to low hgb and low mg Asymptomatic spoke to cardiology recommended to increase metoprolol to 37.5 mg BID with parameters electrolytes replaced Hypertension Continue current therapy Continue monitor BP Satble Chronic diastolic heart failure Continue lasix,lisinopril Metoprolol increased to 37.5 mg Stable B/L lower extremity erythema/tenderness and swelling Possible related to stasis vs cellulitis Stasis due to chronic venous insufficiency Continue lasix Continue doxycycline Pt refused venous doppler of LE to r/o any DVT she said that she had so many of them in the past and they all came back negative for DVT DM type 2 Most recent hba1c was 5 (06/10/16) Lantus has been on hold because BS has been good Her PCP decrease her lantus to 50 units Consider to decrease lantus dose further since BS during the hospital course has been ranging from 78 to 148 with no insulin. pharmacy consulted SOB Possible related to COPD vs symptomatic anemia vs obesity on home O2 at [facility] Continue oxygen supplement Continue advair and respiratory treatment stable DVT px on SCD due to GI bleed CODE STATUS FULL CODE Total time spent on discharge = 35 minutes This includes examination of the patient, discharge planning, medication reconciliation, and communication with other providers. Discharge Instructions Discharge Instructions Admission Reason for Admission: Symptomatic Anemia Discharge Discharge Diagnosis / Problem: Anemia, tachycardia with PAC, cellulitis, Hypomagnesemia Discharge Goals Goal(s): Decrease discomfort, Improve function, Improve disease control Activity Recommendations Activity Limitations: resume your previous activity (as tolerated) . Instructions / Follow-Up Instructions / Follow-Up Follow up with your primary care physician Dr. Sanchez on Jun 17 at 1:10 pm Check CBC and Magnesium on 06/15 ( Lab order given to patient) Monitor blood sugar (consider to take half dose of the lantus tonight if BS not to high) Hold aspirin for now due to the low hemoglobin, resume after seeing your primary care provider Complete antibiotic course If you develop any bloody stool, chest pain, palpitation, please come back to the ER Current Hospital Diet Patient's current hospital diet: Low Fiber Diet, Diabetes Type 2 Diet Discharge Diet Recommended Diet: Diabetes Type 1 Diet, Low Fiber Diet Pending Studies Studies pending at discharge: no Medical Emergencies . Who to Call and When: Medical Emergencies: If at any time you feel your situation is an emergency, please call 911 immediately. . Non-Emergent Contact Non-Emergency issues call your: Primary Care Provider Call Non-Emergent contact if: you have a fever, you have any medication questions . . "Provider Documentation" section prepared by Nathan Blanco. VTE Core Measure Inpt VTE Proph given/why not?: SCD's Additional Copies To Jimi Sanchez D.O.
== END 2016-06-12 19:00 | disposition home or self-care (01) | DRG 812 ==
LOC: ENRESERVTM → CANRESERV → ENRESERVDT → C.EDB 17:09 → C.MED 20:01
PROVIDERS: ADMIT Internal Medicine; ATTEND Internal Medicine
DX: D64.9 Anemia, unspecified (principal); K92.2 Gastrointestinal hemorrhage, unspecified; J96.10 Chronic respiratory failure, unspecified whether with hypoxia or hypercapnia; I50.32 Chronic diastolic (congestive) heart failure; Z68.42 Body mass index [BMI] 45.0-49.9, adult; R19.5 Other fecal abnormalities; I49.1 Atrial premature depolarization; I11.0 Hypertensive heart disease with heart failure; I87.2 Venous insufficiency (chronic) (peripheral); I87.8 Other specified disorders of veins; E11.649 Type 2 diabetes mellitus with hypoglycemia without coma; R06.02 Shortness of breath; J44.9 Chronic obstructive pulmonary disease, unspecified; I25.10 Atherosclerotic heart disease of native coronary artery without angina pectoris; E66.9 Obesity, unspecified; Z53.29 Procedure and treatment not carried out because of patient's decision for other reasons; Z99.81 Dependence on supplemental oxygen; Z96.652 Presence of left artificial knee joint; Z87.891 Personal history of nicotine dependence; Z79.4 Long term (current) use of insulin; Z79.51 Long term (current) use of inhaled steroids; Z79.899 Other long term (current) drug therapy; Z79.82 Long term (current) use of aspirin

== ENCOUNTER 2018-07-30 00:28 | Inpatient (IN) ==
[2018-07-30] MEDS ORDERED: ACETAMINOPHEN 500 MG TAB PO STA (00:37)
[2018-07-30] MEDS ORDERED: ONDANSETRON INJ 2 MG/ML 2 ML VIAL IV STA (00:37)
[2018-07-30 01:06] LABS: INR 3.4 (0.9-1.1); Prothrombin Time 32.1 Seconds (9.0-12.0)
[2018-07-30 01:15] LABS: Alanine Aminotransferase 22 U/L (12-78); Aspartate Aminotransferase 24 U/L (15-37); BUN Creatinine Ratio 16.6 (10-20); Bilirubin Direct 0.2 mg/dl (0-0.2); Blood Urea Nitrogen 17 mg/dl (7-18); Calcium 8.2 mg/dl (8.5-10.1); Carbon Dioxide 28 mmol/L (21-32); Chloride 106 mmol/L (98-107); Creatinine Clr Calc Pharmacy 62.2 ml/min; Est GFR (African American) 64.2; Est GFR (Non-African American) 55.4; Glucose 110 mg/dl (70-99); Magnesium 1.4 mg/dl (1.8-2.4); Potassium 4.3 mmol/L (3.5-5.1); Sodium 139 mmol/L (136-145)
[2018-07-30 01:20] LABS: Alkaline Phosphatase 113 U/L (45-117); Bilirubin,Total 0.7 mg/dl (0.2-1); Total Protein 7.2 gm/dl (6.4-8.2); Troponin I < 0.015 ng/ml (0-0.045)
[2018-07-30 01:44] LABS: Influenza A virus by PCR Neg for Influ A (Neg); Influenza B virus by PCR Neg for Influ B (Neg)
[2018-07-30 02:10] LABS: Basophils # (auto) 0.03 K/uL (0-0.2); Basophils % (auto) 0.2 %; Eosinophils # (auto) 0.07 K/uL (0-0.5); Eosinophils % (auto) 0.4 %; Hematocrit (blood only) 37.6 % (37-47); Hemoglobin 11.7 g/dL (12.0-16.0); Immature Granulocytes # (auto) 0.07 K/uL (0.00-0.02); Immature Granulocytes % (auto) 0.4 %; Lymphocytes # (auto) 0.63 K/uL (1.2-3.4); Lymphocytes % (auto) 3.8 %; Mean Corpuscular Hgb Conc 31.1 g/dL (32-36); Mean Corpuscular Volume 90.2 fL (80-100); Mean Platelet Volume 11.9 fL (7.4-10.4); Monocytes # (auto) 0.74 K/uL (0.11-0.59); Monocytes % (auto) 4.5 %; Neutrophils # (auto) 15.03 K/uL (1.4-6.5); Neutrophils % (auto) 90.7 %; Platelet Count 112 K/uL (130-400); Platelet Estimate Decreased (Normal); RDW Coefficient of Variation 17.7 % (11.5-14.5); RDW Standard Deviation 57.8 fL (36.4-46.3); Red Blood Count 4.17 M/uL (4.2-5.4); White Blood Count 16.57 K/uL (4.8-10.8)
[2018-07-30] MEDS ORDERED: AZTREONAM 2,000 MG in DEXTROSE 5% 100 ML IV STA (02:11)
[2018-07-30] MEDS ORDERED: VANCOMYCIN HCL 2,500 MG in SODIUM CHLORIDE 0.9% 500 ML IV ONE (02:11)
[2018-07-30] MEDS ORDERED: VANCOMYCIN CONSULT ACTIVE PRN ×2 (02:11→04:59)
[2018-07-30] MEDS ORDERED: MAGNESIUM SULFATE / D5W 1 GM/100 ML BAG IV ONE ×2 (02:13→06:30)
[2018-07-30 02:24] LABS: Appearance Urine Clear (Clear); Bacteria Urine Automated Negative (Negative); Bilirubin Urine Negative (Negative); Blood Urine Trace (Negative); Color Urine Yellow; Epithelial Cell Urine Auto >30 /lpf (0-5); Glucose Urine UA Negative (Negative); Ketones Urine Negative (Negative); Leukocyte Esterase Urine Negative (Negative); Nitrite Urine Negative (Negative); Protein Urine Negative (Negative); Specific Gravity Urine 1.019 (1.000-1.030); Urobilinogen Urine Negative (Negative)
[2018-07-30 02:38] LABS: RBC Urine Automated 0-4 /hpf (0-4)
[2018-07-30] MEDS ORDERED: NITROGLYCERIN SL 0.4 MG/TAB TAB SL PRN (04:59)
[2018-07-30] MEDS ORDERED: SODIUM CHLORIDE 0.9% 1000ML 1,000 ML IV SCH (04:59)
[2018-07-30] MEDS ORDERED: ONDANSETRON INJ 2 MG/ML 2 ML VIAL IV PRN (04:59)
--- NOTE | 2018-07-30 05:40 | Pharmacy Report ---
Pharmacy Abx Dose Short Note - Date of Service July 30, 2018 - Assessment & Plan Assessment 77 year old F admitted with possible pneumonia and soft skin and tissue infection. Patient was at [facility] 2 weeks ago and had hospitalization. Plan Vancomycin * Vancomycin 2500 mg IV x 1 (21 mg/kg) then * Vancomycin 1500 mg IV q14H (Vd = 0.6 L/kg; Alirio = 0.055 hr-1; T1/2 = 12.6 hr) * Vancomycin trough around 10 AM dose on 08/01/18 * Goal vancomycin level 15-20 mcg/mL Pharmacy will continue to follow and will adjust dose/frequency as necessary. Thank you.
[2018-07-30] MEDS ORDERED: DEXTROSE 50% 50 ML SYRINGE IV PRN (05:45)
[2018-07-30] MEDS ORDERED: CARBOHYDRATES FOR HYPOGLYCEMIA PO PRN (05:45)
[2018-07-30] MEDS ORDERED: GLUCAGON FOR INJ 1 MG VIAL IM PRN (05:45)
[2018-07-30] MEDS ORDERED: GLUCOSE 40% GEL 15 GM TUBE PO PRN (05:45)
[2018-07-30] MEDS ORDERED: GLUCOSE 10 TABS/TUBE PO PRN (05:45)
--- NOTE | 2018-07-30 06:15 | History and Physical Report ---
DATE OF ADMISSION: 07/30/2018 CHIEF COMPLAINT: Nausea and feeling cold. HISTORY OF PRESENT ILLNESS: This is a 77-year-old female with past medical history significant for type 2 diabetes, hyperlipidemia, COPD, CAD, diastolic CHF, atrial fibrillation, hypertension, morbid obesity, nocturnal hypoxia, generalized osteoarthritis, presents due to nausea and feeling cold at home. The patient lives alone. She was recently in the hospital from 06/25/2018 to 07/02/2018. At that time, she presented with visual issues and lightheadedness and was found to have symptomatic bradycardia with sinus pause and status post pacemaker and she went to rapid AFib and she was controlled with amiodarone and discharged on p.o. amiodarone and also Lopressor. The patient is on Coumadin and she was discharged to [facility]. After that she was discharged back home from [facility] on 07/06/2018. Meanwhile, she has had a followup with cardiology and her diuretics were changed to Lasix 20 mg daily and spironolactone 12.5 mg 3 times a week. She states she has tried to take the medication regularly. She noticed some drainage from her pacemaker site a few days back, she thought it could be pus and today also she had some mild drainage and while at home she started feeling very cold and nauseous and she lives alone so she got worried and came to the ER. She says since she got discharged from [facility] in 07/06/2018 she had showered only once. Denies any fevers at home but had a mild temp spike in the ER. Denies any chest pain, denies any shortness of breath. No headache but had some neck pain and with Tylenol this is improving. No blurred visions, no earache, no runny nose, no sore throat. Denies any cough. No difficulties swallowing. Appetite is okay. Ambulating with cane at home okay. Denies any abdominal pain. Normal bowel and bladder movements. No blood in the stools. No burning micturition. No hematuria. She has swelling in the lower extremity and they are erythematous. She thinks that swelling of the lower extremity maybe increased. She has lower extremity tenderness on palpation. Blood pressure was running on the lower side in the ER. There is leucocytosis. Lactic acid is normal. ALLERGIES: CEPHALOSPORIN, CIPRO, CLINDAMYCIN, ERYTHROMYCIN BASE, METFORMIN, PENCILLIN, SULFA ANTIBIOTICS. PAST MEDICAL HISTORY: As mentioned above. PAST SURGICAL HISTORY: Left knee arthroplasty, adenoidectomy, bilateral cataract surgeries, total abdominal hysterectomy with removal of tubes, status post pacemaker. MEDICATIONS: Currently, the patient is on Lasix 20 mg p.o. daily; spironolactone 12.5 mg p.o. on Mondays, Wednesdays and Fridays; amiodarone 200 mg p.o. b.i.d.; hydralazine 25 mg p.o. b.i.d.; Lopressor 250 mg p.o. b.i.d.; Coumadin 5 mg as directed; Lantus 35 units at bedtime; Zocor 20 mg p.o. at bedtime; Combivent is 1 puff 4 times a day; lisinopril 40 mg p.o. daily; omeprazole 20 mg p.o. daily; Advair Diskus 250/50 mcg 1 inhalation b.i.d.; insulin sliding scale; iron; vitamin C one tablet daily; magnesium 400 mg p.o. daily; clobetasol propionate apply topical to affected areas b.i.d.; Tylenol 500 mg p.o. q. 8 hours p.r.n.; aspirin 81 mg p.o. daily; oxygen 2 L at bedtime. FAMILY HISTORY: Significant for brother had lung cancer with blood cancer. Mother had diabetes and heart disorder. Father had stroke. Son has COPD. SOCIAL HISTORY: Currently, lives alone. Quit smoking in 2003 and prior to that smoked half pack a day for 40 years. No alcohol use. No drug use. REVIEW OF SYMPTOMS: As per HPI. Rest of review of systems negative. PHYSICAL EXAMINATION: GENERAL: Patient is of moderate built, not in acute distress. VITAL SIGNS: Temperature 37.8, pulse 62, respiratory rate 24, blood pressure 98/74, oxygen 94% on 2 L. HEENT: No pallor. No icterus. Pupils equal, round, and reactive to light. NECK: No JVD. No neck masses. No carotid bruits CARDIOVASCULAR: S1, S2 heard. Regular rate and rhythm. No murmurs. No gallop. In the pacemaker site mild drainage seen. RESPIRATORY SYSTEM: Normal AP diameter. No accessory muscle use. No wheezing, no crackles. ABDOMEN: Soft, bowel sounds present. Nontender. No distention. CENTRAL NERVOUS SYSTEM: Cranial nerves II-XII grossly intact. Nonfocal.. EXTREMITIES: Bilateral lower extremities, edema present and erythematous , warm and tender to palpation. LABORATORY DATA: WBC 16.5, hemoglobin 11.7, hematocrit 37.6, platelets 112. PT 32.1, INR 3.4. Sodium 139, potassium 4.3, chloride 106, bicarbonate 28, BUN 17, creatinine 0.9. Serum glucose 110. Lactate 1.4. Magnesium 1.4, total bilirubin 0.2, direct bilirubin 0.2. AST 24, ALT 22, alkaline phosphatase 113, troponin I less than 0.015, lipase 149. Urinalysis, trace blood. Influenza A and B, PCR negative. Chest x-ray possible right lower lobe pneumonia. EKG: Atrial paced rhythm at the rate of 63. No acute ST changes. ASSESSMENT AND PLAN: This 77-year-old female presents with nausea, not feeling well, and found to have mild temperature spike, blood pressure on the lower side and leucocytosis with possible cellulitis and possible pneumonia. 1. Sepsis. Possible sepsis with leucocytosis and fever. Borderline blood pressure with possible cellulitis and possible pneumonia. Empirically started on antibiotics, vancomycin, Azactam, p.o. doxycycline. Follow the cultures. Gentle fluids. Monitor in the telemetry floor. 2. Possible pneumonia. Antibiotics as above. Follow the response. 3. Possible infection of the pacemaker site. The patient had some drainage a few days back and currently does have some very mild drainage. We will follow CT scan to check for an abscess or seroma. Consult cardiology for further recommendations. 4. Cellulitis, lower extremities. Antibiotics as above. Follow the response. Follow the cultures. 5. History of atrial fibrillation. History of sinus pauses and bradycardia. Symptomatic bradycardia recently, status post pacemaker. On amiodarone. We will continue Lopressor with holding parameters. INR is 3.4, hold Coumadin for now. Follow the PT/INR. 6. Possible [id number] diastolic congestive heart failure. Lower extremity swelling is somewhat worsened as per patient. On Lasix 20 mg daily and spironolactone 3 times a week, which are currently held for possible sepsis and on gentle fluids. Monitor for any volume overload. 7. History of chronic obstructive pulmonary disease. Continue home inhalers. Currently stable. 8. Diabetes. Currently the patient is n.p.o. so cut back on Lantus from 35 units to 20 units at bedtime, insulin sliding scale. Monitor the blood sugars. 9. History of nocturnal hypoxia. Use oxygen at bedtime. 10. History of coronary artery disease. To give Lopressor on holding parameters. On aspirin and statin. 11. History of hypertension. Continue Lopressor and hydralazine with holding parameters. Holding lisinopril, we will restart when the blood pressure comes up. 12. Gastroesophageal reflux disease. Continue proton pump inhibitors. 13. Morbid obesity. On oxygen at bedtime. 14. Deep vein thrombosis prophylaxis. INR is 3.4. DISPOSITION: Closely monitor in the tele floor. Level I full code. PT and OT prior to discharge. Social service to help with discharge planning. The patient lives alone. [facility]
--- NOTE | 2018-07-30 06:42 | Emergency Department Note ---
Entered by Diogenes Vides acting as a scribe for ED Provider Note Name: Pat Daniel Age: 77 Arrives Via: EMS Informant: Patient & nursing staff CC: Nausea HPI: A 77 year old female arrives for evaluation of nausea that started around 1900 today. The patient reports that she has experienced chills and vomiting along with her nausea. Per nursing staff, the patient had a pacemaker implanted about a month ago which is swollen. The patient denies any redness of her legs, but states that they are dry. She states that she is unsure if her legs have been more swollen than usual. The patient admits to wearing 2 L of NC daily. She reports that she got her flu shot this year. The patient denies taking any Tylen ol for her symptoms. ROS: See above HPI for pertinent positives & negatives. A total of 10 systems reviewed and were otherwise negative. Past Medical History: DM type 2 diabetes, sinus pause, paroxysmal A-fib, COPD, diastolic CHF, CAD, bilateral lower leg cellulitis, fluid overload, symptomatic anemia Past Surgical History: Total left knee replacement, cataract surgery, adenoidectomy, hysterectomy Family History: No pertinent family history. Social History: Lives alone at home. Former smoker. No alcohol or drug use. Home Medications: Amiodarone, aspirin, clobetasol, ferrous sulfate, fluticasone-salmeterol, furosemide, hydralazine, ipratropium-albuterol, Lantus Solostar U-100 Insulin, lisinopril, magnesium oxide, metoprolol tartrate, Novolog U-100 Insulin aspart, omeprazole, simvastatin, warfarin. Allergies Cephalosporins, Cipro, ciproflaxacin, clindamycin, erythromycin base, metformin, penicillins, sulfa. Physical: Vitals: BP: 98/74, P: 62, R: 24, T: 100, O2 Sat: 93, Delivery: Room Air. Exam: GENERAL: Patient is chronically unwell appearing and in moderate distress. Actively vomiting EYES: No scleral icterus, unremarkable pupils. ENT: Mucous membranes moist, no nasal congestion. NECK: No masses appreciated, no meningismus, trachea is midline. RESPIRATORY: Mild dyspnea with crackles bilateral lower lobes CHEST: Pacemaker site left upper chest with swelling and fluctuance and mild serious drainage from wound. There is no significant erythema and no TTP of the area. CARDIOVASCULAR: Regular rate and rhythm. No murmurs, rubs, gallops appreciated. GASTROINTESTINAL: Abdomen soft, non-tender, no peritonitis. Bowel sounds po sitive. No masses appreciated. BACK: No midline tenderness, no CVA tenderness EXTREMITIES: Normal motion all extremities, no cyanosis, no edema. NEUROLOGIC: Alert and oriented, no acute motor or sensory deficits, no focal weakness, cranial nerves grossly intact. SKIN: No rash, no jaundice, no diaphoresis. ED Course: Prior Medical Record, Triage/Nursing Notes, Medications, Allergies reviewed by Me Vital Signs: reviewed and remarkable for Labs: Reviewed and remarkable for wnl Interventions: Saline Lock, Aztreonam 2g IV, Vanco 2G IV, Magnesium 1G IV, Zofran 4mg IV, Tylenol 1 GI PO Imaging: X ray results are stated below per my interpretation: Chest: 1 view: New/Developing RLL infiltrate compared to previous imaging. EKG: Per My Interpretation: Atrial Paced 63 bpm, no ectopy nor ischemia, moderately poor baseline laterally Consults: 0215: I reviewed the patient's case with Dr. Sigala, [facility] Hospitalist. He will evaluate the patient for further management. Reassessments/Times: 0032: Past medical records reviewed. The patient was evaluated in room C12B, and a complete history and physical examination were performed. Blood pressure: Normal. No Referral necessary Disposition: Hospitalization Differentials: Pneumonia, Influenza, UTI, Hepatitis, Electorlyte abnormality, Sepsis, ACS, Bronchitis amongst other pathologies. Medical Decision Makin yr old female with fatigue, weakness, chills and persistent emesis. Better with fluids/zofran. She was found to have RLL infiltrate and wbc is elevated. She is on her nightly 2L NC though with how she appears, the wbc findings and her history I feel it reasonable for hospitalist evaluation. She has complex allergy history and thus will use Aztreonam/Vanco for coverage. She has no TTP abdomena nd vomiting much improved after zofran. She is stable and is not in septic shock. Impression: Pneumonia RLL Leukocytosis Vomiting Xander Phillip MD The scribe's documentation has been prepared under my direction and personally reviewed by me in its entirety. I confirm that the note above accurately reflects all work, treatment, procedures, and medical decision making performed by me. Impression & Plan Pneumonia, Leukocytosis, Vomiting Past Med/Surg History Social History Preferred Language: Jordanian Communication Ability: Effective Electrical Fitter Required: No Beliefs That Will Affect Care: None marital status: Single Current Living Situation: Alone Current Living Situation Comment: Lives alone. Able to complete ADLs independently up until pacemaker placed Other Information That Helps Us Care for You: No Feels Safe at Home: Yes Safety Concerns: Feels Safe At This Time Smoking Status: Former smoker Hx Alcohol Use: No Hx Substance Use: No Results & Data Vital Signs Vital Signs - 24 hr 07/30/18 00:34 07/30/18 00:35 07/30/18 00:40 Temperature 37.8 C H Temperature Source Oral Sepsis Recent Fever Within 48 Hours Yes Sepsis New/Unexplained Change in Mental Status No Sepsis Action Taken by Nursing Physician Notified Pulse Rate 111 H 77 69 Pulse Rate [Apical] Pulse Rate from SpO2 Sensor 66 65 Pulse Rhythm Regular Pulse Rhythm [Apical] Pulse Strength [Apical] Respiratory Rate 22 28 H 30 H Respiratory Effort / Characteristics Non-Labored Spontaneous Respiratory Depth Normal Respiratory Pattern Regular Blood Pressure 160/95 H Blood Pressure [Right Arm] Blood Pressure Mean 116 Blood Pressure Mean [Right Arm] Blood Pressure Position Lying Blood Pressure Position [Right Arm] Pulse Oximetry 95 93 95 Oxygen Delivery Method Nasal Cannula Oxygen Flow Rate 2 07/30/18 00:48 07/30/18 00:50 07/30/18 01:00 Temperature Temperature Source Sepsis Recent Fever Within 48 Hours Sepsis New/Unexplained Change in Mental Status Sepsis Action Taken by Nursing Pulse Rate 63 63 60 Pulse Rate [Apical] Pulse Rate from SpO2 Sensor 63 63 60 Pulse Rhythm Pulse Rhythm [Apical] Pulse Strength [Apical] Respiratory Rate 24 33 H 28 H Respiratory Effort / Characteristics Respiratory Depth Respiratory Pattern Blood Pressure 148/64 H Blood Pressure [Right Arm] Blood Pressure Mean 92 Blood Pressure Mean [Right Arm] Blood Pressure Position Blood Pressure Position [Right Arm] Pulse Oximetry 95 94 96 Oxygen Delivery Method Oxygen Flow Rate 07/30/18 01:10 07/30/18 01:20 07/30/18 01:30 Temperature Temperature Source Sepsis Recent Fever Within 48 Hours Sepsis New/Unexplained Change in Mental Status Sepsis Action Taken by Nursing Pulse Rate 61 61 60 Pulse Rate [Apical] Pulse Rate from SpO2 Sensor 61 61 60 Pulse Rhythm Pulse Rhythm [Apical] Pulse Strength [Apical] Respiratory Rate 23 27 H 23 Respiratory Effort / Characteristics Respiratory Depth Respiratory Pattern Blood Pressure Blood Pressure [Right Arm] Blood Pressure Mean Blood Pressure Mean [Right Arm] Blood Pressure Position Blood Pressure Position [Right Arm] Pulse Oximetry 95 95 96 Oxygen Delivery Method Oxygen Flow Rate 07/30/18 01:40 07/30/18 01:59 07/30/18 02:00 Temperature Temperature Source Sepsis Recent Fever Within 48 Hours Sepsis New/Unexplained Change in Mental Status Sepsis Action Taken by Nursing Pulse Rate 62 74 Pulse Rate [Apical] Pulse Rate from SpO2 Sensor 65 67 72 Pulse Rhythm Pulse Rhythm [Apical] Pulse Strength [Apical] Respiratory Rate 24 24 Respiratory Effort / Characteristics Respiratory Depth Respiratory Pattern Blood Pressure Blood Pressure [Right Arm] Blood Pressure Mean Blood Pressure Mean [Right Arm] Blood Pressure Position Blood Pressure Position [Right Arm] Pulse Oximetry 96 91 83 L Oxygen Delivery Method Oxygen Flow Rate 07/30/18 02:01 07/30/18 02:10 07/30/18 02:35 Temperature 37.5 C Temperature Source Oral Sepsis Recent Fever Within 48 Hours Sepsis New/Unexplained Change in Mental Status Sepsis Action Taken by Nursing Pulse Rate 75 62 Pulse Rate [Apical] 62 Pulse Rate from SpO2 Sensor 77 60 Pulse Rhythm Pulse Rhythm [Apical] Regular Pulse Strength [Apical] Respiratory Rate 23 24 24 Respiratory Effort / Characteristics Respiratory Depth Normal Respiratory Pattern Blood Pressure 98/74 L Blood Pressure [Right Arm] 98/74 L Blood Pressure Mean 82 Blood Pressure Mean [Right Arm] 82 Blood Pressure Position Blood Pressure Position [Right Arm] Pulse Oximetry 92 93 94 Oxygen Delivery Method Nasal Cannula Oxygen Flow Rate 2 07/30/18 02:38 07/30/18 04:53 07/30/18 04:55 Temperature 36.3 C L Temperature Source Oral Sepsis Recent Fever Within 48 Hours Sepsis New/Unexplained Change in Mental Status Sepsis Action Taken by Nursing Pulse Rate Pulse Rate [Apical] 66 Pulse Rate from SpO2 Sensor Pulse Rhythm Pulse Rhythm [Apical] Regular Pulse Strength [Apical] Normal Respiratory Rate 22 Respiratory Effort / Characteristics Non-Labored Pursed Lip Non-Labored Spontaneous SOB on Exertion Respiratory Depth Normal Normal Respiratory Pattern Regular Blood Pressure Blood Pressure [Right Arm] 133/73 Blood Pressure Mean Blood Pressure Mean [Right Arm] 93 Blood Pressure Position Blood Pressure Position [Right Arm] Lying Pulse Oximetry 95 Oxygen Delivery Method Nasal Cannula Nasal Cannula Oxygen Flow Rate 2 2 Laboratory Data Result diagrams: 07/30/18 00:48 07/30/18 00:48 Lab Results 07/30/18 07/30/18 07/30/18 Range/Units 00:48 00:48 00:48 WBC 16.57 H (4.8-10.8) K/uL RBC 4.17 L (4.2-5.4) M/uL Hgb 11.7 L (12.0-16.0) g/dL Hct 37.6 (37-47) % MCV 90.2 (80-100) fL MCH 28.1 (25-34) pg MCHC 31.1 L (32-36) g/dL RDW Std Deviation 57.8 H (36.4-46.3) fL RDW Coeff of Silvana 17.7 H (11.5-14.5) % Plt Count 112 L (130-400) K/uL MPV 11.9 H (7.4-10.4) fL Immature Gran % (Auto) 0.4 % Neut % (Auto) 90.7 % Lymph % (Auto) 3.8 % [place] % (Auto) 4.5 % Eos % (Auto) 0.4 % Baso % (Auto) 0.2 % Immature Gran # (Auto) 0.07 H (0.00-0.02) K/uL Neut # (Auto) 15.03 H (1.4-6.5) K/uL Lymph # (Auto) 0.63 L (1.2-3.4) K/uL [place] # (Auto) 0.74 H (0.11-0.59) K/uL Eos # (Auto) 0.07 (0-0.5) K/uL Baso # (Auto) 0.03 (0-0.2) K/uL Platelet Estimate Decreased (Normal) PT 32.1 H (9.0-12.0) Seconds INR 3.4 H (0.9-1.1) Sodium 139 (136-145) mmol/L Potassium 4.3 (3.5-5.1) mmol/L Chloride 106 (98-107) mmol/L Carbon Dioxide 28 (21-32) mmol/L Anion Gap 5.0 (3-11) BUN 17 (7-18) mg/dl Creatinine 0.99 (0.6-1.2) mg/dl Est Cr Clr Drug Dosing 62.2 ml/min Est GFR ( Amer) 64.2 Est GFR (Non-Af Amer) 55.4 BUN/Creatinine Ratio 16.6 (10-20) Glucose 110 H (70-99) mg/dl POC Glucose (70-99) Lactate (0.4-2.0) mmol/L Calcium 8.2 L (8.5-10.1) mg/dl Magnesium 1.4 L (1.8-2.4) mg/dl Total Bilirubin 0.7 (0.2-1) mg/dl Direct Bilirubin 0.2 (0-0.2) mg/dl AST 24 (15-37) U/L ALT 22 (12-78) U/L Alkaline Phosphatase 113 (45-117) U/L Troponin I < 0.015 (0-0.045) ng/ml Total Protein 7.2 (6.4-8.2) gm/dl Albumin 3.0 L (3.4-5.0) gm/dl Lipase 149 (73-393) U/L Urine Color Urine Appearance (Clear) Urine pH (4.5-7.5) Ur Specific [place] (1.000-1.030) Urine Protein (Negative) Urine Glucose (UA) (Negative) Urine Ketones (Negative) Urine Blood (Negative) Urine Nitrite (Negative) Urine Bilirubin (Negative) Urine Urobilinogen (Negative) Ur Leukocyte Esterase (Negative) Urine WBC (Auto) (0-5) /hpf Urine RBC (Auto) (0-4) /hpf U Hyaline Cast (Auto) (0-5) /lpf U Epithel Cells (Auto) (0-5) /lpf Urine Bacteria (Auto) (Negative) Influenza Type A (PCR) (Neg) Influenza Type B (PCR) (Neg) 07/30/18 07/30/18 07/30/18 Range/Units 00:48 00:50 02:00 WBC (4.8-10.8) K/uL RBC (4.2-5.4) M/uL Hgb (12.0-16.0) g/dL Hct (37-47) % MCV (80-100) fL MCH (25-34) pg MCHC (32-36) g/dL RDW Std Deviation (36.4-46.3) fL RDW Coeff of Silvana (11.5-14.5) % Plt Count (130-400) K/uL MPV (7.4-10.4) fL Immature Gran % (Auto) % Neut % (Auto) % Lymph % (Auto) % [place] % (Auto) % Eos % (Auto) % Baso % (Auto) % Immature Gran # (Auto) (0.00-0.02) K/uL Neut # (Auto) (1.4-6.5) K/uL Lymph # (Auto) (1.2-3.4) K/uL [place] # (Auto) (0.11-0.59) K/uL Eos # (Auto) (0-0.5) K/uL Baso # (Auto) (0-0.2) K/uL Platelet Estimate (Normal) PT (9.0-12.0) Seconds INR (0.9-1.1) Sodium (136-145) mmol/L Potassium (3.5-5.1) mmol/L Chloride (98-107) mmol/L Carbon Dioxide (21-32) mmol/L Anion Gap (3-11) BUN (7-18) mg/dl Creatinine (0.6-1.2) mg/dl Est Cr Clr Drug Dosing ml/min Est GFR ( Amer) Est GFR (Non-Af Amer) BUN/Creatinine Ratio (10-20) Glucose (70-99) mg/dl POC Glucose (70-99) Lactate 1.4 (0.4-2.0) mmol/L Calcium (8.5-10.1) mg/dl Magnesium (1.8-2.4) mg/dl Total Bilirubin (0.2-1) mg/dl Direct Bilirubin (0-0.2) mg/dl AST (15-37) U/L ALT (12-78) U/L Alkaline Phosphatase (45-117) U/L Troponin I (0-0.045) ng/ml Total Protein (6.4-8.2) gm/dl Albumin (3.4-5.0) gm/dl Lipase (73-393) U/L Urine Color Yellow Urine Appearance Clear (Clear) Urine pH 7.0 (4.5-7.5) Ur Specific [place] 1.019 (1.000-1.030) Urine Protein Negative (Negative) Urine Glucose (UA) Negative (Negative) Urine Ketones Negative (Negative) Urine Blood Trace H (Negative) Urine Nitrite Negative (Negative) Urine Bilirubin Negative (Negative) Urine Urobilinogen Negative (Negative) Ur Leukocyte Esterase Negative (Negative) Urine WBC (Auto) 1-5 (0-5) /hpf Urine RBC (Auto) 0-4 (0-4) /hpf U Hyaline Cast (Auto) 1-5 (0-5) /lpf U Epithel Cells (Auto) >30 H (0-5) /lpf Urine Bacteria (Auto) Negative (Negative) Influenza Type A (PCR) Neg for Influ A (Neg) Influenza Type B (PCR) Neg for Influ B (Neg) 07/30/18 Range/Units 06:12 WBC (4.8-10.8) K/uL RBC (4.2-5.4) M/uL Hgb (12.0-16.0) g/dL Hct (37-47) % MCV (80-100) fL MCH (25-34) pg MCHC (32-36) g/dL RDW Std Deviation (36.4-46.3) fL RDW Coeff of Silvana (11.5-14.5) % Plt Count (130-400) K/uL MPV (7.4-10.4) fL Immature Gran % (Auto) % Neut % (Auto) % Lymph % (Auto) % [place] % (Auto) % Eos % (Auto) % Baso % (Auto) % Immature Gran # (Auto) (0.00-0.02) K/uL Neut # (Auto) (1.4-6.5) K/uL Lymph # (Auto) (1.2-3.4) K/uL [place] # (Auto) (0.11-0.59) K/uL Eos # (Auto) (0-0.5) K/uL Baso # (Auto) (0-0.2) K/uL Platelet Estimate (Normal) PT (9.0-12.0) Seconds INR (0.9-1.1) Sodium (136-145) mmol/L Potassium (3.5-5.1) mmol/L Chloride (98-107) mmol/L Carbon Dioxide (21-32) mmol/L Anion Gap (3-11) BUN (7-18) mg/dl Creatinine (0.6-1.2) mg/dl Est Cr Clr Drug Dosing ml/min Est GFR ( Amer) Est GFR (Non-Af Amer) BUN/Creatinine Ratio (10-20) Glucose (70-99) mg/dl POC Glucose 133 H (70-99) Lactate (0.4-2.0) mmol/L Calcium (8.5-10.1) mg/dl Magnesium (1.8-2.4) mg/dl Total Bilirubin (0.2-1) mg/dl Direct Bilirubin (0-0.2) mg/dl AST (15-37) U/L ALT (12-78) U/L Alkaline Phosphatase (45-117) U/L Troponin I (0-0.045) ng/ml Total Protein (6.4-8.2) gm/dl Albumin (3.4-5.0) gm/dl Lipase (73-393) U/L Urine Color Urine Appearance (Clear) Urine pH (4.5-7.5) Ur Specific [place] (1.000-1.030) Urine Protein (Negative) Urine Glucose (UA) (Negative) Urine Ketones (Negative) Urine Blood (Negative) Urine Nitrite (Negative) Urine Bilirubin (Negative) Urine Urobilinogen (Negative) Ur Leukocyte Esterase (Negative) Urine WBC (Auto) (0-5) /hpf Urine RBC (Auto) (0-4) /hpf U Hyaline Cast (Auto) (0-5) /lpf U Epithel Cells (Auto) (0-5) /lpf Urine Bacteria (Auto) (Negative) Influenza Type A (PCR) (Neg) Influenza Type B (PCR) (Neg) Administered Medications Sodium Chloride (Nss 1000ml) 1,000 mls @ 50 mls/hr IV .Q20H ERIC Stop: 08/29/18 04:58 Last Admin: 07/30/18 06:03 Dose: 50 mls/hr Documented by: [id number] Discontinued Medications Acetaminophen (Tylenol) 1,000 mg PO NOW STA Stop: 07/30/18 00:38 Last Admin: 07/30/18 00:45 Dose: 1,000 mg Documented by: [id number] Aztreonam 2,000 mg/ Dextrose 120 mls @ 100 mls/hr IV NOW STA Stop: 07/30/18 03:22 Last Infusion: 07/30/18 03:59 Dose: 0 mls/hr Documented by: [id number] Admin: 07/30/18 02:28 Dose: 100 mls/hr Documented by: [id number] Vancomycin HCl 2,500 mg/ (Sodium Chloride) 550 mls @ 200 mls/hr IV NOW ONE Stop: 07/30/18 04:55 Last Infusion: 07/30/18 06:01 Dose: 0 mls/hr Documented by: [id number] Admin: 07/30/18 02:34 Dose: 200 mls/hr Documented by: [id number] Magnesium Sulfate/Dextrose (Magnesium Sulfate / D5w) 1 gm in 100 mls @ 100 mls/hr IV ONE ONE Stop: 07/30/18 03:12 Last Infusion: 07/30/18 05:17 Dose: 0 mls/hr Documented by: [id number] Admin: 07/30/18 03:41 Dose: 100 mls/hr Documented by: [id number] Ondansetron HCl (Zofran) 4 mg IV NOW STA Stop: 07/30/18 00:38 Last Admin: 07/30/18 00:45 Dose: 4 mg Documented by: [id number] Discharge Plan Visit Data *Final* Discharge Date/Time: 07/30/18 05:05 Chief Complaint: Nausea Stated Complaint: chills ED Provider: Xander Phillip Discharge Problem: Pneumonia, Leukocytosis, Vomiting Patient Disposition: Admitted As Inpatient Discharge Instructions Interventions: ED Discharge Assessment Last Done: 07/30/18 04:00 Discharge Problem: Pneumonia Qualifiers: Pneumonia type: due to unspecified organism Laterality: right Lung location: lower lobe of lung Qualified Code(s): J18.1 - Lobar pneumonia, unspecified organism Leukocytosis Qualifiers: Leukocytosis type: unspecified Qualified Code(s): D72.829 - Elevated white blood cell count, unspecified Vomiting Qualifiers: Vomiting type: unspecified Vomiting Intractability: non-intractable Nausea presence: with nausea Qualified Code(s): R11.2 - Nausea with vomiting, unspecified The scribe's documentation has been prepared under my direction and personally reviewed by me in its entirety. I confirm that the note above accurately reflects all work, treatment, procedures, and medical decision making performed by me.
[2018-07-30 07:16] LABS: Mean Corpuscular Hgb Conc 30.2 g/dL (32-36)
[2018-07-30 07:21] LABS: Hematocrit (blood only) 40.4 % (37-47); Hemoglobin 12.2 g/dL (12.0-16.0); Mean Corpuscular Volume 91.2 fL (80-100); RDW Coefficient of Variation 17.7 % (11.5-14.5); RDW Standard Deviation 59.3 fL (36.4-46.3); Red Blood Count 4.43 M/uL (4.2-5.4)
[2018-07-30 07:39] LABS: BUN Creatinine Ratio 16.5 (10-20); Calcium 8.5 mg/dl (8.5-10.1); Creatinine Clr Calc Pharmacy 54.9 ml/min; Est GFR (African American) 56.5; Est GFR (Non-African American) 48.7; Magnesium 1.7 mg/dl (1.8-2.4); Potassium 4.6 mmol/L (3.5-5.1)
[2018-07-30 07:41] LABS: Basophils # (auto) 0.03 K/uL (0-0.2); Basophils % (auto) 0.2 %; Eosinophils # (auto) 0.02 K/uL (0-0.5); Eosinophils % (auto) 0.1 %; Immature Granulocytes # (auto) 0.09 K/uL (0.00-0.02); Immature Granulocytes % (auto) 0.5 %; Lymphocytes # (auto) 0.62 K/uL (1.2-3.4); Lymphocytes % (auto) 3.3 %; Mean Platelet Volume 11.7 fL (7.4-10.4); Monocytes # (auto) 0.55 K/uL (0.11-0.59); Monocytes % (auto) 2.9 %; Neutrophils # (auto) 17.49 K/uL (1.4-6.5); Platelet Count 97 K/uL (130-400); Platelet Estimate Decreased (Normal)
--- NOTE | 2018-07-30 07:41 | CT Scan Report ---
CT chest wo con CT DOSE: 1051.69 mGy.cm HISTORY: Left upper chest swelling. pacemaker site seroma vs abscess? TECHNIQUE: Multiaxial CT images of the chest were performed without contrast. A dose lowering techni que was utilized adhering to the principles of ALARA. COMPARISON: None. FINDINGS: There is a 5 cm fluid collection surrounding the left pacemaker. There is mild subcutaneous fat stranding within the left upper chest. Substernal thyroid nodule measuring 2.5 cm. No mediastina l or hilar lymphadenopathy. The heart is enlarged. No pleural or pericardial effusions. The visualize d liver, spleen, and right adrenal gland are unremarkable. There is thickening of the left adrenal gl and which may be due to hyperplasia. No suspicious lytic or blastic osseous lesions. The central airw ays are patent. No pneumothorax. A few bibasilar linear densities favor subsegmental atelectasis. Oth erwise, no focal lung consolidations to suggest pneumonia. IMPRESSION: 1. A 5 cm fluid collection surrounding the left pacemaker. This could represent a postoperative serom a, hematoma or possibly an abscess. Clinical correlation recommended. 2. Bibasilar linear densities favor subsegmental atelectasis. 3. Mild cardiomegaly. Electronically signed by: Alton Khan M.D. 07/30/2018 7:40 AM
[2018-07-30 07:45] LABS: Estimated Average Glucose 123 mg/dl; Hemoglobin A1C 5.9 % (4.5-5.6)
--- NOTE | 2018-07-30 07:59 | XRay Report ---
XR chest 1V portable HISTORY: cough, fevers, chills COMPARISON: Chest 06/30/2018. FINDINGS: No pneumothorax. No pleural effusions. The heart is mildly enlarged. Left-sided dual-chambe r pacemaker. A few bibasilar linear densities consistent with subsegmental atelectasis. There is mild central pulmonary vascular congestion without overt edema. IMPRESSION: Cardiomegaly with mild central pulmonary vascular congestion without overt edema. Electronically signed by: Alton Khan M.D. 07/30/2018 7:57 AM
[2018-07-30 08:33] LABS: INR 3.3 (0.9-1.1); Prothrombin Time 30.7 Seconds (9.0-12.0)
[2018-07-30] MEDS: ASPIRIN 81 MG ECTAB PO SCH (08:35)
[2018-07-30] MEDS: METOPROLOL TARTRATE 50 MG TAB PO SCH ×2 (08:35→20:36)
[2018-07-30] MEDS: DOXYCYCLINE HYCLATE 100 MG CAP PO SCH ×2 (08:35→19:20)
[2018-07-30] MEDS: FLUTICASONE/SALMETEROL 250/50 (ADVAIR) 14 PUFF/1 INHALER INH SCH ×2 (08:37→19:17)
[2018-07-30] MEDS: IPRATROPIUM BROMIDE/ALBUTEROL respimat INH INH SCH ×4 (08:38→19:18)
[2018-07-30] MEDS: INSULIN ASPART 100 UNITS/ML 3 ML PEN SC SCH ×4 (08:42→20:41)
[2018-07-30] MEDS ORDERED: AMIODARONE 200 MG TAB PO SCH (09:00)
[2018-07-30] MEDS: AZTREONAM 2,000 MG in DEXTROSE 5% 100 ML IV SCH ×2 (10:46→19:17)
[2018-07-30] MEDS: FERROUS SULFATE 325 MG TAB PO SCH (10:47)
[2018-07-30] MEDS: MAGNESIUM OXIDE 400 MG TAB PO SCH ×2 (10:47→16:37)
[2018-07-30] MEDS: ACETAMINOPHEN 325 MG TAB PO PRN (11:44)
--- NOTE | 2018-07-30 14:22 | Cardiology Consultation ---
Date of Consultation July 30, 2018 Assessment & Plan (1) Pacemaker infection: Exam and imaging are reflective of probable pacer site infection. Drainage cultured patient on broad-spectrum antibiotics blood cultures pending. Plan hold warfarin reduce amiodarone dosing. We will anticipate possible pacer extraction question ALEXA prior on Wednesday Continue antibiotics as ordered pending cultures (2) Paroxysmal A-fib: Reduce amiodarone dosing possible reduce metoprolol dosing in the future History of Present Illness Reason for Consultation: Pacemaker site infection possible sepsis Requesting Physician: Dr. Fortune Attending Physician: Winston Fortune MD History of Present Illness Patient is an 77-year-old female with past cardiac history 1. 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 2. Status post dual-chamber pacemaker implantation on June 29, 2018. 3. Initiation of amiodarone therapy in June 2018 4. Diastolic heart failure 5. Iron deficiency anemia, refusing endoscopy. Patient presents this admission noting approximately 4-5 days history of intermittent small amounts of blood seepage from pacemaker site. Yesterday developed fevers chills rigors and presented to the emergency room for evaluation. Patient had elevated white cell count and serosanguineous/purulent drainage from Pacers incision line. She is begun on broad-spectrum antibiotics with aztreonam and vancomycin. She is referred now for further evaluation. At time of examination patient was in no acute distress. Fevers and chills had resolved. She is to continue to have intermittent small amounts of drainage from pacer incision . She notes no chest pains orthopnea PND or peripheral edema. Appetite's been fair but is eating well while examined. Has been taking medications as prescribed. Notes no overt bleeding difficulties melena hematochezia dysuria hematuria. INR has been therapeutic Patient notes no overt cough, shortness of breath, tachypalpitations, syncope or near syncope. Active to low level about her home. Did note some stress over difficulties with running out of fuel for furnace. Allergies Allergy/AdvReac Type Severity Reaction Status Date / Time Cephalosporins Allergy Unknown Unknown Verified 07/30/18 02:19 Cipro Allergy Unknown RASH Verified 06/10/16 18:14 ciprofloxacin Allergy Unknown RASH Verified 07/30/18 02:19 clindamycin Allergy Unknown RASH Verified 07/30/18 02:19 erythromycin base Allergy Unknown Unknown Verified 07/30/18 02:19 metformin Allergy Unknown EDEMA FACE Unverified 07/30/18 02:19 AND HANDS, ITCHY Penicillins Allergy Unknown Unknown Verified 07/30/18 02:19 Sulfa (Sulfonamide Allergy Unknown . Verified 07/30/18 02:19 Antibiotics) Home Medications Home Medications Medication Instructions Recorded Confirmed Type Lantus Solostar U-100 Insulin 35 unit SUBCUT QPM 05/08/18 07/30/18 History aspirin [Aspir-81] 81 mg PO QAM 05/08/18 07/30/18 History fluticasone-salmeterol 1 inh INHALATION BID 05/08/18 07/30/18 History hydralazine 25 mg PO BID 05/08/18 07/30/18 History ipratropium-albuterol 1 puff INHALATION QID 05/08/18 07/30/18 History lisinopril 40 mg PO HS 05/08/18 07/30/18 History magnesium oxide 400 mg PO BID 05/08/18 07/30/18 History omeprazole 20 mg PO HS 05/08/18 07/30/18 History simvastatin 20 mg PO HS 05/08/18 07/30/18 History Novolog U-100 Insulin aspart 10 unit SUBCUT BID 06/27/18 07/30/18 History Novolog U-100 Insulin aspart 12 units SUBCUT DAILYBL 06/27/18 07/30/18 History clobetasol 1 applic TOPICAL BID PRN 06/27/18 07/30/18 History warfarin [Coumadin] 2.5 mg PO 5XWK 06/27/18 07/30/18 History amiodarone 200 mg PO BID 07/30/18 07/30/18 History ferrous sulfate [iron] 325 mg PO DAILY 07/30/18 07/30/18 History furosemide 20 mg PO QAM 07/30/18 07/30/18 History metoprolol tartrate 50 mg PO BID 07/30/18 07/30/18 History warfarin [Coumadin] 5 mg PO 2XWK 07/30/18 07/30/18 History Patient History Medical History DM type 2 (diabetes mellitus, type 2) (Chronic) COPD (chronic obstructive pulmonary disease) (Chronic) Dyslipidemia (Chronic) Diastolic CHF (Chronic) CAD (coronary artery disease) (Chronic) Osteoarthritis (Chronic) Nocturnal hypoxemia (Chronic) CHF (congestive heart failure) (Chronic) COPD (chronic obstructive pulmonary disease) (Chronic) Type 2 diabetes mellitus (Chronic) Surgical History History of hysterectomy (Chronic) S/P adenoidectomy (Chronic) History of cataract surgery (Chronic) History of total left knee replacement (Chronic) Family History Other No pertinent family history Social History Communication Ability: Effective Beliefs That Will Affect Care: None marital status: Single Current Living Situation: Alone Current Living Situation Comment: Lives alone. Able to complete ADLs independently up until pacemaker placed Other Information That Helps Us Care for You: No Feels Safe at Home: Yes Safety Concerns: Feels Safe At This Time Smoking Status: Former smoker Hx Alcohol Use: No Hx Substance Use: No Review of Systems As per HPI and otherwise negative Physical Exam Vital Signs (Past 24 Hours): Last Vital Signs Temp 37.3 C 07/30/18 11:03 Pulse 60 07/30/18 11:03 Resp 20 07/30/18 11:03 BP 119/55 L 07/30/18 11:03 Pulse Ox 93 07/30/18 11:03 Constitutional: + obese; no acute distress Eyes: PERRL, conjunctivae normal, anicteric sclerae Neck: trachea midline, no thyromegaly + thick neck Respiratory: no audible wheezes Auscultation: + diminished lung sounds (Clear to auscultation) Cardiovascular: Rate/Rhythm: regular rate and regular rhythm Heart Sounds: normal S1 and normal S2; no gallop and no cardiac rub Extremities: + edema (1-2+ lower extremity) Chest (Breasts): Chest: + pacemaker (Pocket site with mild erythema incision line oozing serosanguineous material easily expressed on palpation) Gastrointestinal (Abdomen): normal bowel sounds, soft, nontender, no hepatosplenomegaly Skin: Bilateral excoriative exchanges both lower extremities below the knees Psychiatric: A+Ox3, euthymic affect Results & Data Laboratory Results Laboratory Results - last 24 hr 07/30/18 07/30/18 07/30/18 00:48 00:48 00:48 WBC 16.57 H RBC 4.17 L Hgb 11.7 L Hct 37.6 MCV 90.2 MCH 28.1 MCHC 31.1 L RDW Std Deviation 57.8 H RDW Coeff of Silvana 17.7 H Plt Count 112 L MPV 11.9 H Immature Gran % (Auto) 0.4 Neut % (Auto) 90.7 Lymph % (Auto) 3.8 [place] % (Auto) 4.5 Eos % (Auto) 0.4 Baso % (Auto) 0.2 Immature Gran # (Auto) 0.07 H Neut # (Auto) 15.03 H Lymph # (Auto) 0.63 L [place] # (Auto) 0.74 H Eos # (Auto) 0.07 Baso # (Auto) 0.03 Platelet Estimate Decreased PT 32.1 H INR 3.4 H Sodium 139 Potassium 4.3 Chloride 106 Carbon Dioxide 28 Anion Gap 5.0 BUN 17 Creatinine 0.99 Est Cr Clr Drug Dosing 62.2 Est GFR ( Amer) 64.2 Est GFR (Non-Af Amer) 55.4 BUN/Creatinine Ratio 16.6 Glucose 110 H POC Glucose Estimat Average Glucose Hemoglobin A1c Lactate Calcium 8.2 L Magnesium 1.4 L Total Bilirubin 0.7 Direct Bilirubin 0.2 AST 24 ALT 22 Alkaline Phosphatase 113 Troponin I < 0.015 Total Protein 7.2 Albumin 3.0 L Lipase 149 Urine Color Urine Appearance Urine pH Ur Specific [place] Urine Protein Urine Glucose (UA) Urine Ketones Urine Blood Urine Nitrite Urine Bilirubin Urine Urobilinogen Ur Leukocyte Esterase Urine WBC (Auto) Urine RBC (Auto) U Hyaline Cast (Auto) U Epithel Cells (Auto) Urine Bacteria (Auto) Influenza Type A (PCR) Influenza Type B (PCR) 07/30/18 07/30/18 07/30/18 00:48 00:50 02:00 WBC RBC Hgb Hct MCV MCH MCHC RDW Std Deviation RDW Coeff of Silvana Plt Count MPV Immature Gran % (Auto) Neut % (Auto) Lymph % (Auto) [place] % (Auto) Eos % (Auto) Baso % (Auto) Immature Gran # (Auto) Neut # (Auto) Lymph # (Auto) [place] # (Auto) Eos # (Auto) Baso # (Auto) Platelet Estimate PT INR Sodium Potassium Chloride Carbon Dioxide Anion Gap BUN Creatinine Est Cr Clr Drug Dosing Est GFR ( Amer) Est GFR (Non-Af Amer) BUN/Creatinine Ratio Glucose POC Glucose Estimat Average Glucose Hemoglobin A1c Lactate 1.4 Calcium Magnesium Total Bilirubin Direct Bilirubin AST ALT Alkaline Phosphatase Troponin I Total Protein Albumin Lipase Urine Color Yellow Urine Appearance Clear Urine pH 7.0 Ur Specific [place] 1.019 Urine Protein Negative Urine Glucose (UA) Negative Urine Ketones Negative Urine Blood Trace H Urine Nitrite Negative Urine Bilirubin Negative Urine Urobilinogen Negative Ur Leukocyte Esterase Negative Urine WBC (Auto) 1-5 Urine RBC (Auto) 0-4 U Hyaline Cast (Auto) 1-5 U Epithel Cells (Auto) >30 H Urine Bacteria (Auto) Negative Influenza Type A (PCR) Neg for Influ A Influenza Type B (PCR) Neg for Influ B 07/30/18 07/30/18 07/30/18 06:12 06:45 06:45 WBC 18.80 H RBC 4.43 Hgb 12.2 Hct 40.4 MCV 91.2 MCH 27.5 MCHC 30.2 L RDW Std Deviation 59.3 H RDW Coeff of Silvana 17.7 H Plt Count 97 L MPV 11.7 H Immature Gran % (Auto) 0.5 Neut % (Auto) 93.0 Lymph % (Auto) 3.3 [place] % (Auto) 2.9 Eos % (Auto) 0.1 Baso % (Auto) 0.2 Immature Gran # (Auto) 0.09 H Neut # (Auto) 17.49 H Lymph # (Auto) 0.62 L [place] # (Auto) 0.55 Eos # (Auto) 0.02 Baso # (Auto) 0.03 Platelet Estimate Decreased PT INR Sodium 140 Potassium 4.6 Chloride 105 Carbon Dioxide 30 Anion Gap 5.0 BUN 18 Creatinine 1.10 Est Cr Clr Drug Dosing 54.9 Est GFR ( Amer) 56.5 Est GFR (Non-Af Amer) 48.7 BUN/Creatinine Ratio 16.5 Glucose 130 H POC Glucose 133 H Estimat Average Glucose Hemoglobin A1c Lactate Calcium 8.5 Magnesium 1.7 L Total Bilirubin Direct Bilirubin AST ALT Alkaline Phosphatase Troponin I Total Protein Albumin Lipase Urine Color Urine Appearance Urine pH Ur Specific [place] Urine Protein Urine Glucose (UA) Urine Ketones Urine Blood Urine Nitrite Urine Bilirubin Urine Urobilinogen Ur Leukocyte Esterase Urine WBC (Auto) Urine RBC (Auto) U Hyaline Cast (Auto) U Epithel Cells (Auto) Urine Bacteria (Auto) Influenza Type A (PCR) Influenza Type B (PCR) 07/30/18 07/30/18 07/30/18 06:45 08:10 08:42 WBC RBC Hgb Hct MCV MCH MCHC RDW Std Deviation RDW Coeff of Silvana Plt Count MPV Immature Gran % (Auto) Neut % (Auto) Lymph % (Auto) [place] % (Auto) Eos % (Auto) Baso % (Auto) Immature Gran # (Auto) Neut # (Auto) Lymph # (Auto) [place] # (Auto) Eos # (Auto) Baso # (Auto) Platelet Estimate PT 30.7 H INR 3.3 H Sodium Potassium Chloride Carbon Dioxide Anion Gap BUN Creatinine Est Cr Clr Drug Dosing Est GFR ( Amer) Est GFR (Non-Af Amer) BUN/Creatinine Ratio Glucose POC Glucose 124 H Estimat Average Glucose 123 Hemoglobin A1c 5.9 H Lactate Calcium Magnesium Total Bilirubin Direct Bilirubin AST ALT Alkaline Phosphatase Troponin I Total Protein Albumin Lipase Urine Color Urine Appearance Urine pH Ur Specific [place] Urine Protein Urine Glucose (UA) Urine Ketones Urine Blood Urine Nitrite Urine Bilirubin Urine Urobilinogen Ur Leukocyte Esterase Urine WBC (Auto) Urine RBC (Auto) U Hyaline Cast (Auto) U Epithel Cells (Auto) Urine Bacteria (Auto) Influenza Type A (PCR) Influenza Type B (PCR) 07/30/18 11:21 WBC RBC Hgb Hct MCV MCH MCHC RDW Std Deviation RDW Coeff of Silvana Plt Count MPV Immature Gran % (Auto) Neut % (Auto) Lymph % (Auto) [place] % (Auto) Eos % (Auto) Baso % (Auto) Immature Gran # (Auto) Neut # (Auto) Lymph # (Auto) [place] # (Auto) Eos # (Auto) Baso # (Auto) Platelet Estimate PT INR Sodium Potassium Chloride Carbon Dioxide Anion Gap BUN Creatinine Est Cr Clr Drug Dosing Est GFR ( Amer) Est GFR (Non-Af Amer) BUN/Creatinine Ratio Glucose POC Glucose 163 H Estimat Average Glucose Hemoglobin A1c Lactate Calcium Magnesium Total Bilirubin Direct Bilirubin AST ALT Alkaline Phosphatase Troponin I Total Protein Albumin Lipase Urine Color Urine Appearance Urine pH Ur Specific [place] Urine Protein Urine Glucose (UA) Urine Ketones Urine Blood Urine Nitrite Urine Bilirubin Urine Urobilinogen Ur Leukocyte Esterase Urine WBC (Auto) Urine RBC (Auto) U Hyaline Cast (Auto) U Epithel Cells (Auto) Urine Bacteria (Auto) Influenza Type A (PCR) Influenza Type B (PCR) ECG Additional Comments: 30-JUL-2018 00:52:12 [facility] Atrial-paced rhythm Left axis deviation ST & T wave abnormality, consider lateral ischemia Abnormal ECG When compared with ECG of 29-JUN-2018 15:59, Electronic atrial pacemaker has replaced Sinus rhythm Vent. rate has decreased BY 45 BPM Non-specific change in ST segment in Lateral leads T wave inversion now evident in Lateral leads QT has shortened
--- NOTE | 2018-07-30 16:27 | Hospitalist Progress Note ---
Date of Service July 30, 2018 Assessment & Plan (1) Pacemaker infection: on broad-spectrum antibiotics with aztreonam and vancomycin pacemaker infection likely as source of infection and sepsis There is a 5 cm fluid collection surrounding the left pacemaker on CT imaging as per cardiology service Drainage cultured patient on broad-spectrum antibiotics blood cultures pending / Plan hold warfarin reduce amiodarone dosing / anticipate possible pacer extraction question ALEXA prior on Wednesday Continue antibiotics as ordered pending cultures Paroxysmal A-fib: Reduce amiodarone dosing possible reduce metoprolol dosing in the future INR of 3.3 is supratherapeutic , hold coumadin Chronic respiratory failure secondary to COPD patient typically uses 2 liters/min at night at home continue home inhalers No evidence for pneumonia chronic diastolic heart failure hold off home dose Lasix and Spirolactone for now as blood pressures somewhat low, resume gradually Continue Lopressor and hydralazine with holding parameters. Holding lisinopril, we will restart when the blood pressure improves On aspirin and statin. Type 2 Diabetes mellitus controlled on senior care insulin -resume home dose long acting insulin -sliding scale insulin as needed Morbid obesity with BMI 47.3 in adult PT/OT evaluations Gastroesophageal reflux disease Continue proton pump inhibitors DVT ppx: INR of 3.3 is supratherapeutic , hold coumadin Subjective Patient seen and examined today on nasal cannula Patient denies acute pain or chest or shortness of breath. Dressing over the left pacemaker incision site did not appear to be actively oozing Patient denies lightheadedness or headache Physical Exam Vital Signs (Past 24 Hours): Last Vital Signs Temp 36.5 C 07/30/18 15:29 Pulse 68 07/30/18 15:29 Resp 18 07/30/18 15:29 BP 107/62 07/30/18 15:29 Pulse Ox 95 07/30/18 15:29 Constitutional: + obese Eyes: PERRL, conjunctivae normal, anicteric sclerae EOM intact bilaterally ENMT: external ear and nose normal, oropharynx normal Respiratory: normal respiratory effort, lungs clear to auscultation Cardiovascular: paced rhythm, Dressing over the left pacemaker incision site did not appear to be actively oozing Gastrointestinal (Abdomen): normal bowel sounds, soft, nontender, no hepatosplenomegaly Musculoskeletal: Bilateral lower extremities with chronic skin changes Neurologic: PERRL, EOMI, accommodation nl, no face palsy, no dysarthria CN's II-XI intact bilaterally Psychiatric: A+Ox3, euthymic affect
[2018-07-30] MEDS: VANCOMYCIN HCL 1,500 MG in SODIUM CHLORIDE 0.9% 500 ML IV SCH (16:37)
[2018-07-30] MEDS: SIMVASTATIN 20 MG TAB PO SCH (19:21)
[2018-07-30] MEDS: PANTOprazole 40 MG TAB PO SCH (19:21)
[2018-07-30] MEDS: INSULIN GLARGINE SOLOSTAR 100 UNITS/ML 3 ML PEN SC SCH (20:36)
[2018-07-30] MEDS ORDERED: HEPARIN SOD 5,000 UNIT/0.5 ML VIAL SQ SCH (21:00)
[2018-07-30] MEDS ORDERED: INSULIN GLARGINE SOLOSTAR 100 UNITS/ML 3 ML PEN SC SCH (21:00)
[2018-07-31] MEDS: AZTREONAM 2,000 MG in DEXTROSE 5% 100 ML IV SCH (03:12)
[2018-07-31 05:37] LABS: Hematocrit (blood only) 34.5 % (37-47); Hemoglobin 10.2 g/dL (12.0-16.0); Mean Corpuscular Hgb Conc 29.6 g/dL (32-36); RDW Coefficient of Variation 17.9 % (11.5-14.5); RDW Standard Deviation 59.5 fL (36.4-46.3); Red Blood Count 3.79 M/uL (4.2-5.4)
[2018-07-31 05:43] LABS: Basophils # (auto) 0.03 K/uL (0-0.2); Basophils % (auto) 0.3 %; Eosinophils # (auto) 0.12 K/uL (0-0.5); Eosinophils % (auto) 1.3 %; Immature Granulocytes # (auto) 0.03 K/uL (0.00-0.02); Immature Granulocytes % (auto) 0.3 %; Lymphocytes # (auto) 0.52 K/uL (1.2-3.4); Lymphocytes % (auto) 5.4 %; Mean Platelet Volume 11.7 fL (7.4-10.4); Monocytes # (auto) 0.43 K/uL (0.11-0.59); Monocytes % (auto) 4.5 %; Neutrophils # (auto) 8.47 K/uL (1.4-6.5); Neutrophils % (auto) 88.2 %; Platelet Count 89 K/uL (130-400)
[2018-07-31 05:56] LABS: Prothrombin Time 35.4 Seconds (9.0-12.0)
[2018-07-31 05:57] LABS: BUN Creatinine Ratio 24.4 (10-20); Creatinine Clr Calc Pharmacy 57.6 ml/min; Est GFR (African American) 59.7; Est GFR (Non-African American) 51.5; Magnesium 1.8 mg/dl (1.8-2.4); Potassium 4.6 mmol/L (3.5-5.1)
[2018-07-31] MEDS: VANCOMYCIN HCL 1,500 MG in SODIUM CHLORIDE 0.9% 500 ML IV SCH (06:00)
[2018-07-31 06:09] LABS: INR 3.8 (0.9-1.1)
[2018-07-31] MEDS ORDERED: FUROSEMIDE 40 MG/4 ML VIAL IV STA (08:45)
--- NOTE | 2018-07-31 08:47 | Hospitalist Progress Note ---
Date of Service July 31, 2018 Assessment & Plan (1) Pacemaker infection: pacemaker infection likely as source of infection and sepsis Staphylococcus aureus Bacteremia There is a 5 cm fluid collection surrounding the left pacemaker on CT imaging initially on broad-spectrum antibiotics with aztreonam and vancomycin and doxycycline from admission 07/31/18 cultures have returned as Staph Aureus in blood cultures and PCR is negative for MRSA. will transition from the triple antibiotics to cefazolin 2grams q 8 hours which should give sufficient bactericidal activity but will also consult infectious disease physician for further recommendations. patient has multiple listed drug allergies but she is a poor historian and cannot truly recall what she was allergic to and what reactions culture from pacemaker pocket expressed drainage also with Staph Aureus as per cardiology service anticipate possible pacer extraction question ALEXA prior on Wednesday Paroxysmal A-fib: amiodarone 200 mg BID and metoprolol 50 mg BID INR of 3.8 is supratherapeutic , hold coumadin Chronic respiratory failure secondary to COPD patient typically uses 2 liters/min at night at home continue home inhalers No evidence for pneumonia acute on chronic diastolic heart failure hold off Spirolactone for now as blood pressures somewhat low, resume gradually Initially home dose oral Lasix was held because of low blood pressure, but patient seen to have more volume overload on 07/31/18 and will give Lasix 40 mg I V x 1 and reassess blood pressures Continue Lopressor and hydralazine with holding parameters. Holding lisinopril, we will restart when the blood pressure improves On aspirin and statin. 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 her legs are warm to the touch bilaterally Physical Exam Vital Signs (Past 24 Hours): Last Vital Signs Temp 37.1 C 07/31/18 06:57 Pulse 62 07/31/18 06:57 Resp 22 07/31/18 06:57 BP 101/43 L 07/31/18 06:57 Pulse Ox 92 03/10/19 06:57 Constitutional: + obese Eyes: PERRL, conjunctivae normal, anicteric sclerae EOM intact bilaterally ENMT: external ear and nose normal, oropharynx normal Respiratory: normal respiratory effort, lungs clear to auscultation Cardiovascular: Rate/Rhythm: regular rate (paced) Extremities: + edema (swelling of hands) Chest (Breasts): Chest: + pacemaker (has dressing over the site of left chest) Gastrointestinal (Abdomen): normal bowel sounds, soft, nontender, no hepatosplenomegaly Musculoskeletal: Head/Neck/Chest: normocephalic and head atraumatic Extremities: + lower extremity abnormal to inspection Bilateral (warm and tender to the touch below the knees above ankles) Neurologic: PERRL, EOMI, accommodation nl, no face palsy, no dysarthria CN's II-XI intact bilaterally Psychiatric: A+Ox3, euthymic affect
[2018-07-31] MEDS: ASPIRIN 81 MG ECTAB PO SCH (09:13)
[2018-07-31] MEDS: AMIODARONE 200 MG TAB PO SCH (09:13)
[2018-07-31] MEDS: INSULIN GLARGINE SOLOSTAR 100 UNITS/ML 3 ML PEN SC SCH (09:13)
[2018-07-31] MEDS: METOPROLOL TARTRATE 50 MG TAB PO SCH (09:13)
[2018-07-31] MEDS: NYSTATIN POWDER 15GM BTL EXT SCH ×2 (09:14→20:56)
[2018-07-31] MEDS: INSULIN ASPART 100 UNITS/ML 3 ML PEN SC SCH ×4 (09:14→20:56)
[2018-07-31] MEDS: FLUTICASONE/SALMETEROL 250/50 (ADVAIR) 14 PUFF/1 INHALER INH SCH ×2 (09:14→20:57)
[2018-07-31] MEDS: CEFAZOLIN 2000MG 2,000 MG/15 ML SYR IV SCH ×2 (10:35→17:25)
[2018-07-31] MEDS: MAGNESIUM OXIDE 400 MG TAB PO SCH ×2 (10:36→17:26)
[2018-07-31] MEDS: IPRATROPIUM BROMIDE/ALBUTEROL respimat INH INH SCH ×4 (10:36→20:57)
[2018-07-31] MEDS: FERROUS SULFATE 325 MG TAB PO SCH (10:36)
--- NOTE | 2018-07-31 14:31 | Cardiology Progress Note ---
Date of Service July 31, 2018 Assessment & Plan (1) Pacemaker infection: Exam and imaging are reflective of probable pacer site infection. Drainage cultured patient on broad-spectrum antibiotics blood cultures pending. Plan hold warfarin reduce amiodarone dosing. We will anticipate possible pacer extraction question ALEXA prior on Wednesday INR remains supratherapeutic off medical therapies likely secondary to infection and antibiotics. Will give low-dose vitamin K this evening (2) Paroxysmal A-fib: Amiodarone reduced to 200 mg/day. Will reduce metoprolol to 25 mill grams p.o. twice daily (3) Staphylococcus aureus bacteremia: ID consulted, anticipate device removal Subjective Feels slightly improved today. No further fevers or chills. Denies dizziness or lightheadedness. Tolerating current medications but feels edematous. Physical Exam Vital Signs (Past 24 Hours): Last Vital Signs Temp 36.8 C 07/31/18 10:32 Pulse 61 07/31/18 10:32 Resp 19 07/31/18 10:32 BP 100/56 L 07/31/18 10:32 Pulse Ox 92 07/31/18 10:32 Constitutional: + obese; no acute distress Eyes: PERRL, conjunctivae normal, anicteric sclerae Neck: trachea midline, no thyromegaly + thick neck Respiratory: no audible wheezes Auscultation: + diminished lung sounds (Clear to auscultation) Cardiovascular: Rate/Rhythm: regular rate and regular rhythm Heart Sounds: normal S1 and normal S2; no gallop and no cardiac rub Extremities: + edema (1-2+ lower extremity) Chest (Breasts): Chest: + pacemaker (Pocket site no longer draining) Gastrointestinal (Abdomen): normal bowel sounds, soft, nontender, no hepatosplenomegaly Psychiatric: A+Ox3, euthymic affect Results & Data Laboratory Results Laboratory Results - last 24 hr 07/30/18 07/30/18 07/30/18 00:47 16:15 20:30 WBC RBC Hgb Hct MCV MCH MCHC RDW Std Deviation RDW Coeff of Silvana Plt Count MPV Immature Gran % (Auto) Neut % (Auto) Lymph % (Auto) [place] % (Auto) Eos % (Auto) Baso % (Auto) Immature Gran # (Auto) Neut # (Auto) Lymph # (Auto) [place] # (Auto) Eos # (Auto) Baso # (Auto) PT INR Sodium Potassium Chloride Carbon Dioxide Anion Gap BUN Creatinine Est Cr Clr Drug Dosing Est GFR ( Amer) Est GFR (Non-Af Amer) BUN/Creatinine Ratio Glucose POC Glucose 157 H 107 H Calcium Magnesium Bld Cult Staph aureus PCR Positive A Blood Culture MRSA PCR Negative 07/31/18 07/31/18 07/31/18 05:09 05:09 05:09 WBC 9.60 RBC 3.79 L Hgb 10.2 L Hct 34.5 L MCV 91.0 MCH 26.9 MCHC 29.6 L RDW Std Deviation 59.5 H RDW Coeff of Silvana 17.9 H Plt Count 89 L MPV 11.7 H Immature Gran % (Auto) 0.3 Neut % (Auto) 88.2 Lymph % (Auto) 5.4 [place] % (Auto) 4.5 Eos % (Auto) 1.3 Baso % (Auto) 0.3 Immature Gran # (Auto) 0.03 H Neut # (Auto) 8.47 H Lymph # (Auto) 0.52 L [place] # (Auto) 0.43 Eos # (Auto) 0.12 Baso # (Auto) 0.03 PT 35.4 H INR 3.8 H Sodium 136 Potassium 4.6 Chloride 104 Carbon Dioxide 28 Anion Gap 4.0 BUN 26 H Creatinine 1.05 Est Cr Clr Drug Dosing 57.6 Est GFR ( Amer) 59.7 Est GFR (Non-Af Amer) 51.5 BUN/Creatinine Ratio 24.4 H Glucose 97 POC Glucose Calcium 8.0 L Magnesium 1.8 Bld Cult Staph aureus PCR Blood Culture MRSA PCR 07/31/18 07/31/18 07:34 11:27 WBC RBC Hgb Hct MCV MCH MCHC RDW Std Deviation RDW Coeff of Silvana Plt Count MPV Immature Gran % (Auto) Neut % (Auto) Lymph % (Auto) [place] % (Auto) Eos % (Auto) Baso % (Auto) Immature Gran # (Auto) Neut # (Auto) Lymph # (Auto) [place] # (Auto) Eos # (Auto) Baso # (Auto) PT INR Sodium Potassium Chloride Carbon Dioxide Anion Gap BUN Creatinine Est Cr Clr Drug Dosing Est GFR ( Amer) Est GFR (Non-Af Amer) BUN/Creatinine Ratio Glucose POC Glucose 87 126 H Calcium Magnesium Bld Cult Staph aureus PCR Blood Culture MRSA PCR
[2018-07-31] MEDS ORDERED: PHYTONADIONE 5 MG TAB PO STA (14:42)
--- NOTE | 2018-07-31 17:41 | Infectious Disease Consult ---
Date of Consultation July 31, 2018 Assessment & Plan (1) Staphylococcus aureus bacteremia: 77-year-old female with staph aureus bacteremia with infected pacemaker. Will require removal of pacemaker, would also recommend ALEXA if feasible to evaluate for possible endocarditis as will help determine length of IV antibiotics. Patient to be continued on IV cefazolin for now. Will follow. (2) Pacemaker infection: History of Present Illness Reason for Consultation: Pacemaker and bacteremia Attending Physician: Winston Fortune MD History of Present Illness 77-year-old female with history of diabetes mellitus, diastolic congestive heart failure, COPD, atrial fibrillation, who was hospitalized in June with bradycardia requiring pacemaker. She did well until the last week, when she noted some mild purulent drainage from 1 part of her pacemaker incision. She subsequently developed fever and shaking chills was at the hospital for further management. She is now been asked to have positive blood cultures for methicillin sensitive staph aureus, cultures of drainage from pacemaker pocket also shows staph aureus. CT shows probable pacemaker pocket infection with fluid. Has been seen by cardiology plans for removal of pacemaker later this week. Now on IV cefazolin, patient feeling better with resolution of fever. No significant pain over her pacemaker site. Allergies Allergy/AdvReac Type Severity Reaction Status Date / Time Cephalosporins Allergy Unknown Unknown Verified 07/30/18 02:19 Cipro Allergy Unknown RASH Verified 06/10/16 18:14 ciprofloxacin Allergy Unknown RASH Verified 07/30/18 02:19 clindamycin Allergy Unknown RASH Verified 07/30/18 02:19 erythromycin base Allergy Unknown Unknown Verified 07/30/18 02:19 metformin Allergy Unknown EDEMA FACE Unverified 07/30/18 02:19 AND HANDS, ITCHY Penicillins Allergy Unknown Unknown Verified 07/30/18 02:19 Sulfa (Sulfonamide Allergy Unknown . Verified 07/30/18 02:19 Antibiotics) Home Medications Home Medications Medication Instructions Recorded Confirmed Type Lantus Solostar U-100 Insulin 35 unit SUBCUT QPM 05/08/18 07/30/18 History aspirin [Aspir-81] 81 mg PO QAM 05/08/18 07/30/18 History fluticasone-salmeterol 1 inh INHALATION BID 05/08/18 07/30/18 History hydralazine 25 mg PO BID 05/08/18 07/30/18 History ipratropium-albuterol 1 puff INHALATION QID 05/08/18 07/30/18 History lisinopril 40 mg PO HS 05/08/18 07/30/18 History magnesium oxide 400 mg PO BID 05/08/18 07/30/18 History omeprazole 20 mg PO HS 05/08/18 07/30/18 History simvastatin 20 mg PO HS 05/08/18 07/30/18 History Novolog U-100 Insulin aspart 10 unit SUBCUT BID 06/27/18 07/30/18 History Novolog U-100 Insulin aspart 12 units SUBCUT DAILYBL 06/27/18 07/30/18 History clobetasol 1 applic TOPICAL BID PRN 06/27/18 07/30/18 History warfarin [Coumadin] 2.5 mg PO 5XWK 06/27/18 07/30/18 History amiodarone 200 mg PO BID 07/30/18 07/30/18 History ferrous sulfate [iron] 325 mg PO DAILY 07/30/18 07/30/18 History furosemide 20 mg PO QAM 07/30/18 07/30/18 History metoprolol tartrate 50 mg PO BID 07/30/18 07/30/18 History warfarin [Coumadin] 5 mg PO 2XWK 07/30/18 07/30/18 History Patient History Medical History DM type 2 (diabetes mellitus, type 2) (Chronic) COPD (chronic obstructive pulmonary disease) (Chronic) Dyslipidemia (Chronic) Diastolic CHF (Chronic) CAD (coronary artery disease) (Chronic) Osteoarthritis (Chronic) Nocturnal hypoxemia (Chronic) CHF (congestive heart failure) (Chronic) COPD (chronic obstructive pulmonary disease) (Chronic) Type 2 diabetes mellitus (Chronic) Surgical History History of hysterectomy (Chronic) S/P adenoidectomy (Chronic) History of cataract surgery (Chronic) History of total left knee replacement (Chronic) Family History Other No pertinent family history Social History Communication Ability: Effective Beliefs That Will Affect Care: None marital status: Single Current Living Situation: Alone Current Living Situation Comment: Lives alone. Able to complete ADLs independently up until pacemaker placed Other Information That Helps Us Care for You: No Feels Safe at Home: Yes Safety Concerns: Feels Safe At This Time Smoking Status: Former smoker Hx Alcohol Use: No Hx Substance Use: No Review of Systems All systems were reviewed and are negative except as per HPI Physical Exam Vital Signs (Past 24 Hours): Last Vital Signs Temp 37.0 C 07/31/18 14:59 Pulse 60 07/31/18 14:59 Resp 19 07/31/18 14:59 BP 113/56 L 07/31/18 14:59 Pulse Ox 94 07/31/18 14:59 Constitutional: WD/WN, vitals as above comfortable; no acute distress Eyes: PERRL, conjunctivae normal, anicteric sclerae ENMT: external ear and nose normal, oropharynx normal Neck: trachea midline, no thyromegaly neck nontender Respiratory: normal respiratory effort, lungs clear to auscultation normal percussion; does not use accessory muscles Cardiovascular: Rate/Rhythm: regular rate and regular rhythm Heart Sounds: normal S1 and normal S2; no gallop, no murmur and no cardiac rub Vessels: normal peripheral pulses; no JVD Extremities: + edema (1-2+ lower extremity) Gastrointestinal (Abdomen): normal bowel sounds, soft, nontender, no hepatosplenomegaly Musculoskeletal: no cyanosis or clubbing, extremities motor strength 5/5 Spine: thoracic spine normal to inspection and lumbar spine normal to inspection; no cervical spinal tenderness Skin: normal turgor; no rashes and no lesions Mild erythema overlying pacemaker pocket, small amount of purulent material expressed Neurologic: patellar DTR's 2+ bilat, sensation intact no focal motor deficits Psychiatric: A+Ox3, euthymic affect Orientation: cooperative Lymphatic: no cervical or axillary lymphadenopathy no inguinal lymphadenopathy Results & Data Laboratory Results Short CBC 07/31/18 Range/Units 05:09 WBC 9.60 (4.8-10.8) K/uL Hgb 10.2 L (12.0-16.0) g/dL Hct 34.5 L (37-47) % Plt Count 89 L (130-400) K/uL BMP 07/31/18 05:09 Sodium 136 Potassium 4.6 Chloride 104 Carbon Dioxide 28 BUN 26 H Creatinine 1.05 Glucose 97 Calcium 8.0 L Diagnostic Findings Microbiology 07/30/18 07:05 Blood Blood Culture - Preliminary Staphylococcus aureus 07/30/18 06:45 Blood Blood Culture - Preliminary Staphylococcus aureus 07/30/18 01:02 Blood Blood Culture - Preliminary Staphylococcus aureus 07/30/18 00:47 Blood Blood Culture - Preliminary Staphylococcus aureus 07/30/18 Unknown Chest Gram Stain - Final 07/30/18 Unknown Chest Deep Wound Culture - Preliminary Staphylococcus aureus cc: ~ CT chest wo con CT DOSE: 1051.69 mGy.cm HISTORY: Left upper chest swelling. pacemaker site seroma vs abscess? TECHNIQUE: Multiaxial CT images of the chest were performed without contrast. A dose lowering technique was utilized adhering to the principles of ALARA. COMPARISON: None. FINDINGS: There is a 5 cm fluid collection surrounding the left pacemaker. There is mild subcutaneous fat stranding within the left upper chest. Substernal thyroid nodule measuring 2.5 cm. No mediastinal or hilar lymphadenopathy. The heart is enlarged. No pleural or pericardial effusions. The visualized liver, spleen, and right adrenal gland are unremarkable. There is thickening of the left adrenal gland which may be due to hyperplasia. No suspicious lytic or blastic osseous lesions. The central airways are patent. No pneumothorax. A few bibasilar linear densities favor subsegmental atelectasis. Otherwise, no focal lung consolidations to suggest pneumonia. IMPRESSION: 1. A 5 cm fluid collection surrounding the left pacemaker. This could represent a postoperative seroma, hematoma or possibly an abscess. Clinical correlation recommended. 2. Bibasilar linear densities favor subsegmental atelectasis. 3. Mild cardiomegaly. Electronically signed by: Alton Khan M.D. 07/30/2018 7:40 AM Dictated: 07/30/18 0736 Transcribed: 07/30/18 0736
[2018-07-31] MEDS: PANTOprazole 40 MG TAB PO SCH (20:58)
[2018-07-31] MEDS: SIMVASTATIN 20 MG TAB PO SCH (20:59)
[2018-07-31] MEDS: METOPROLOL TARTRATE 25 MG TAB PO SCH (20:59)
[2018-08-01] MEDS: CEFAZOLIN 2000MG 2,000 MG/15 ML SYR IV SCH ×3 (00:23→18:23)
[2018-08-01] MEDS: FLUTICASONE/SALMETEROL 250/50 (ADVAIR) 14 PUFF/1 INHALER INH SCH ×2 (07:39→20:34)
[2018-08-01] MEDS: IPRATROPIUM BROMIDE/ALBUTEROL respimat INH INH SCH ×4 (07:39→20:34)
[2018-08-01 07:41] LABS: Mean Corpuscular Hgb Conc 30.2 g/dL (32-36)
[2018-08-01] MEDS: AMIODARONE 200 MG TAB PO SCH (07:41)
[2018-08-01] MEDS: FUROSEMIDE 20 MG TAB PO SCH (07:42)
[2018-08-01] MEDS: ASPIRIN 81 MG ECTAB PO SCH (07:42)
[2018-08-01] MEDS: METOPROLOL TARTRATE 25 MG TAB PO SCH ×2 (07:44→20:34)
[2018-08-01] MEDS: NYSTATIN POWDER 15GM BTL EXT SCH ×2 (07:44→20:35)
[2018-08-01 07:48] LABS: INR 1.7 (0.9-1.1); Prothrombin Time 16.5 Seconds (9.0-12.0)
[2018-08-01 08:12] LABS: Albumin Level 2.3 gm/dl (3.4-5.0); BUN Creatinine Ratio 24.2 (10-20); Calcium 8.4 mg/dl (8.5-10.1); Creatinine Clr Calc Pharmacy 63.5 ml/min; Est GFR (African American) 67.4; Est GFR (Non-African American) 58.2; Potassium 4.2 mmol/L (3.5-5.1)
[2018-08-01 08:15] LABS: Albumin Globulin Ratio 0.6 (0.9-2); Bilirubin,Total 0.5 mg/dl (0.2-1); Hematocrit (blood only) 35.1 % (37-47); Hemoglobin 10.6 g/dL (12.0-16.0); Mean Corpuscular Volume 89.8 fL (80-100); RDW Coefficient of Variation 17.6 % (11.5-14.5); RDW Standard Deviation 58.5 fL (36.4-46.3); Red Blood Count 3.91 M/uL (4.2-5.4); Total Protein 6.3 gm/dl (6.4-8.2); White Blood Count 7.07 K/uL (4.8-10.8)
[2018-08-01 08:17] LABS: Mean Platelet Volume 12.7 fL (7.4-10.4); Platelet Count 90 K/uL (130-400)
[2018-08-01 08:18] LABS: Basophils # (auto) 0.02 K/uL (0-0.2); Basophils % (auto) 0.3 %; Eosinophils # (auto) 0.31 K/uL (0-0.5); Eosinophils % (auto) 4.4 %; Giant Platelets 1+; Immature Granulocytes # (auto) 0.02 K/uL (0.00-0.02); Immature Granulocytes % (auto) 0.3 %; Lymphocytes # (auto) 0.98 K/uL (1.2-3.4); Lymphocytes % (auto) 13.9 %; Monocytes # (auto) 0.55 K/uL (0.11-0.59); Monocytes % (auto) 7.8 %; Neutrophils # (auto) 5.19 K/uL (1.4-6.5); Neutrophils % (auto) 73.3 %; Platelet Estimate Decreased (Normal)
[2018-08-01] MEDS: INSULIN ASPART 100 UNITS/ML 3 ML PEN SC SCH ×4 (09:22→20:25)
[2018-08-01] MEDS ORDERED: VANCOMYCIN TROUGH ONE (09:30)
--- NOTE | 2018-08-01 11:26 | Cardiology Progress Note ---
Date of Service August 01, 2018 Assessment & Plan (1) Pacemaker infection: Exam and imaging are reflective of pacer site infection. Drainage cultured patient on broad-spectrum antibiotics blood cultures growing staph aureus methicillin sensitive Plan hold warfarin reduce amiodarone dosing. Tentative plans for pacer extraction on Wednesday with planned ALEXA prior to procedure (2) Paroxysmal A-fib: Amiodarone reduced to 200 mg/day. Will reduce metoprolol to 25 mill grams p.o. twice daily Patient remains in sinus, with intermittent atrial pacing No further vitamin K, INR 1.7 today (3) Staphylococcus aureus bacteremia: ID consulted, anticipate device removal Subjective Feels slightly improved today. Looks better, brighter. No focal complaints. Less lower extremity edema. No fevers or rigors Physical Exam Vital Signs (Past 24 Hours): Last Vital Signs Temp 36.8 C 08/01/18 07:45 Pulse 66 08/01/18 07:45 Resp 21 08/01/18 07:45 BP 116/60 08/01/18 07:45 Pulse Ox 91 08/01/18 07:45 Constitutional: + obese; no acute distress Eyes: PERRL, conjunctivae normal, anicteric sclerae Neck: trachea midline, no thyromegaly + thick neck Respiratory: no audible wheezes Auscultation: + diminished lung sounds (Clear to auscultation) Cardiovascular: Rate/Rhythm: regular rate and regular rhythm Heart Sounds: normal S1 and normal S2; no gallop and no cardiac rub Extremities: + edema (1-2+ lower extremity) Chest (Breasts): Chest: + pacemaker (Pocket site no longer draining) Gastrointestinal (Abdomen): normal bowel sounds, soft, nontender, no hepatosplenomegaly Psychiatric: A+Ox3, euthymic affect Results & Data Laboratory Results Laboratory Results - last 24 hr 07/31/18 07/31/18 07/31/18 11:27 16:20 20:17 WBC RBC Hgb Hct MCV MCH MCHC RDW Std Deviation RDW Coeff of Silvana Plt Count MPV Immature Gran % (Auto) Neut % (Auto) Lymph % (Auto) [place] % (Auto) Eos % (Auto) Baso % (Auto) Immature Gran # (Auto) Neut # (Auto) Lymph # (Auto) [place] # (Auto) Eos # (Auto) Baso # (Auto) Platelet Estimate Giant Platelets PT INR Sodium Potassium Chloride Carbon Dioxide Anion Gap BUN Creatinine Est Cr Clr Drug Dosing Est GFR ( Amer) Est GFR (Non-Af Amer) BUN/Creatinine Ratio Glucose POC Glucose 126 H 79 96 Calcium Total Bilirubin AST ALT Alkaline Phosphatase Total Protein Albumin Globulin Albumin/Globulin Ratio Blood Type Antibody Screen 08/01/18 08/01/18 08/01/18 07:23 07:23 07:23 WBC 7.07 RBC 3.91 L Hgb 10.6 L Hct 35.1 L MCV 89.8 MCH 27.1 MCHC 30.2 L RDW Std Deviation 58.5 H RDW Coeff of Silvana 17.6 H Plt Count 90 L MPV 12.7 H Immature Gran % (Auto) 0.3 Neut % (Auto) 73.3 Lymph % (Auto) 13.9 [place] % (Auto) 7.8 Eos % (Auto) 4.4 Baso % (Auto) 0.3 Immature Gran # (Auto) 0.02 Neut # (Auto) 5.19 Lymph # (Auto) 0.98 L [place] # (Auto) 0.55 Eos # (Auto) 0.31 Baso # (Auto) 0.02 Platelet Estimate Decreased Giant Platelets 1+ PT 16.5 H INR 1.7 H Sodium Potassium Chloride Carbon Dioxide Anion Gap BUN Creatinine Est Cr Clr Drug Dosing Est GFR ( Amer) Est GFR (Non-Af Amer) BUN/Creatinine Ratio Glucose POC Glucose Calcium Total Bilirubin AST ALT Alkaline Phosphatase Total Protein Albumin Globulin Albumin/Globulin Ratio Blood Type A Positive Antibody Screen NEGATIVE 08/01/18 07:23 WBC RBC Hgb Hct MCV MCH MCHC RDW Std Deviation RDW Coeff of Silvana Plt Count MPV Immature Gran % (Auto) Neut % (Auto) Lymph % (Auto) [place] % (Auto) Eos % (Auto) Baso % (Auto) Immature Gran # (Auto) Neut # (Auto) Lymph # (Auto) [place] # (Auto) Eos # (Auto) Baso # (Auto) Platelet Estimate Giant Platelets PT INR Sodium 140 Potassium 4.2 Chloride 105 Carbon Dioxide 31 Anion Gap 5.0 BUN 23 H Creatinine 0.95 Est Cr Clr Drug Dosing 63.5 Est GFR ( Amer) 67.4 Est GFR (Non-Af Amer) 58.2 BUN/Creatinine Ratio 24.2 H Glucose 88 POC Glucose Calcium 8.4 L Total Bilirubin 0.5 AST 28 ALT 19 Alkaline Phosphatase 104 Total Protein 6.3 L Albumin 2.3 L Globulin 4.0 Albumin/Globulin Ratio 0.6 L Blood Type Antibody Screen
[2018-08-01] MEDS: FERROUS SULFATE 325 MG TAB PO SCH (11:50)
[2018-08-01] MEDS: MAGNESIUM OXIDE 400 MG TAB PO SCH ×2 (11:50→18:22)
--- NOTE | 2018-08-01 14:55 | Hospitalist Progress Note ---
Date of Service August 01, 2018 Assessment & Plan (1) Pacemaker infection: pacemaker infection likely as source of infection and sepsis Staphylococcus aureus Bacteremia There is a 5 cm fluid collection surrounding the left pacemaker on CT imaging initially on broad-spectrum antibiotics with aztreonam and vancomycin and doxycycline from admission 07/31/18 cultures have returned as Staph Aureus in blood cultures and PCR is negative for MRSA. will transition from the triple antibiotics to cefazolin 2grams q 8 hours culture from pacemaker pocket expressed drainage also with Staph Aureus 08/01/18: as per cardiology service anticipate possible pacer extraction and ALEXA prior on Wednesday08/02/18, continue cefazolin Paroxysmal A-fib: amiodarone 200 mg BID and metoprolol 50 mg BID supratherapeutic INR has been reversed by cardiology service after vitamin K on 07/31/18 and INR on 08/02/18 is 1.7 continue to hold coumadin because of planned pacemaker extraction on 08/02/18, DVT ppx with subcutaneous heparin Chronic respiratory failure secondary to COPD patient typically uses 2 liters/min at night at home continue home inhalers No evidence for pneumonia on room air during daytime acute on chronic diastolic heart failure hold off Spirolactone for now as blood pressures somewhat low, resume gradually Initially home dose oral Lasix was held because of low blood pressure, but patient seen to have more volume overload on 07/31/18 and given Lasix 40 mg IV x 1, received oral Lasix 20 mg on 08/01/18, continue oral Lasix 20 mg daily Continue Lopressor and hydralazine with holding parameters. On aspirin and statin. will resume lisinopril after the pacemaker extraction or if blood pressures becomes high Bilateral lower extremity Cellulitis already on antibiotics for bacteremia negative urine analysis Type 2 Diabetes mellitus controlled on fci insulin -continue home dose long acting insulin -sliding scale insulin as needed Morbid obesity with BMI 47.3 in adult encourage ambulation PT/OT evaluations Gastroesophageal reflux disease Continue proton pump inhibitors DVT ppx: continue to hold coumadin because of planned pacemaker extraction on 08/02/18, DVT ppx with subcutaneous heparin Full Code campos Caro [phone] Subjective Patient seen and examined today on room air Patient denies acute pain or chest or shortness of breath Patient denies lightheadedness or headache Patient is has less upper extremity swelling compared to yesterday Physical Exam Vital Signs (Past 24 Hours): Last Vital Signs Temp 36.7 C 08/01/18 11:47 Pulse 70 08/01/18 11:47 Resp 17 08/01/18 11:47 BP 148/70 H 08/01/18 11:47 Pulse Ox 91 08/01/18 11:47 Constitutional: + obese Eyes: PERRL, conjunctivae normal, anicteric sclerae EOM intact bilaterally ENMT: external ear and nose normal, oropharynx normal Respiratory: normal respiratory effort, lungs clear to auscultation Cardiovascular: Rate/Rhythm: regular rate (paced) Chest (Breasts): Chest: + pacemaker (has dressing over the site of left chest) Gastrointestinal (Abdomen): normal bowel sounds, soft, nontender, no hepatosplenomegaly Musculoskeletal: Head/Neck/Chest: normocephalic and head atraumatic Extremities: + lower extremity abnormal to inspection (bilateral redness on warmth of the legs between knees and ankles) Neurologic: PERRL, EOMI, accommodation nl, no face palsy, no dysarthria CN's II-XI intact bilaterally Psychiatric: A+Ox3, euthymic affect
--- NOTE | 2018-08-01 16:08 | Infectious Disease Progress Nt ---
Date of Service August 01, 2018 Assessment & Plan (1) Staphylococcus aureus bacteremia: 77-year-old female with staph aureus bacteremia with infected pacemaker. Will require removal of pacemaker, would also recommend ALEXA if feasible to evaluate for possible endocarditis as will help determine length of IV antibiotics. Patient to be continued on IV cefazolin for now. Will follow. (2) Pacemaker infection: Subjective Patient seen in follow-up for staphylococcal sepsis with pacemaker pocket infection. Feeling better, less chest pain. Currently afebrile. Tolerating antibiotic without apparent difficulty. For extraction of pacemaker tomorrow hopefully. Review of Systems All systems reviewed & are unremarkable except as noted in HPI & below Physical Exam Vital Signs (Past 24 Hours): Last Vital Signs Temp 36.7 C 08/01/18 15:46 Pulse 67 08/01/18 15:46 Resp 16 08/01/18 15:46 BP 119/59 L 08/01/18 15:46 Pulse Ox 93 08/01/18 15:46 Constitutional: WD/WN, vitals as above comfortable; no acute distress Eyes: PERRL, conjunctivae normal, anicteric sclerae ENMT: external ear and nose normal, oropharynx normal Neck: trachea midline, no thyromegaly neck nontender Respiratory: normal respiratory effort, lungs clear to auscultation normal percussion; does not use accessory muscles Cardiovascular: Rate/Rhythm: regular rate and regular rhythm Heart Sounds: normal S1 and normal S2; no gallop, no murmur and no cardiac rub Vessels: normal peripheral pulses; no JVD Extremities: + edema (1-2+ lower extremity) Gastrointestinal (Abdomen): normal bowel sounds, soft, nontender, no hepatosplenomegaly Musculoskeletal: no cyanosis or clubbing, extremities motor strength 5/5 Spine: thoracic spine normal to inspection and lumbar spine normal to inspection; no cervical spinal tenderness Skin: normal turgor; no rashes and no lesions Neurologic: patellar DTR's 2+ bilat, sensation intact no focal motor deficits Psychiatric: A+Ox3, euthymic affect Orientation: cooperative Lymphatic: no cervical or axillary lymphadenopathy no inguinal lymphadenopathy Results & Data Laboratory Results Short CBC 08/01/18 Range/Units 07:23 WBC 7.07 (4.8-10.8) K/uL Hgb 10.6 L (12.0-16.0) g/dL Hct 35.1 L (37-47) % Plt Count 90 L (130-400) K/uL BMP 08/01/18 07:23 Sodium 140 Potassium 4.2 Chloride 105 Carbon Dioxide 31 BUN 23 H Creatinine 0.95 Glucose 88 Calcium 8.4 L Liver Function 08/01/18 Range/Units 07:23 Total Bilirubin 0.5 (0.2-1) mg/dl AST 28 (15-37) U/L ALT 19 (12-78) U/L Alkaline Phosphatase 104 (45-117) U/L Albumin 2.3 L (3.4-5.0) gm/dl Diagnostic Findings Microbiology 07/30/18 Unknown Chest Gram Stain - Final 07/30/18 Unknown Chest Deep Wound Culture - Final Staphylococcus aureus 07/30/18 07:05 Blood Blood Culture - Final Staphylococcus aureus 07/30/18 01:02 Blood Blood Culture - Final Staphylococcus aureus 07/30/18 00:47 Blood Blood Culture - Final Staphylococcus aureus 07/30/18 06:45 Blood Blood Culture - Preliminary Staphylococcus aureus CT chest wo con CT DOSE: 1051.69 mGy.cm HISTORY: Left upper chest swelling. pacemaker site seroma vs abscess? TECHNIQUE: Multiaxial CT images of the chest were performed without contrast. A dose lowering technique was utilized adhering to the principles of ALARA. COMPARISON: None. FINDINGS: There is a 5 cm fluid collection surrounding the left pacemaker. There is mild subcutaneous fat stranding within the left upper chest. Substernal thyroid nodule measuring 2.5 cm. No mediastinal or hilar lymphadenopathy. The heart is enlarged. No pleural or pericardial effusions. The visualized liver, spleen, and right adrenal gland are unremarkable. There is thickening of the left adrenal gland which may be due to hyperplasia. No suspicious lytic or blastic osseous lesions. The central airways are patent. No pneumothorax. A few bibasilar linear densities favor subsegmental atelectasis. Otherwise, no focal lung consolidations to suggest pneumonia. IMPRESSION: 1. A 5 cm fluid collection surrounding the left pacemaker. This could represent a postoperative seroma, hematoma or possibly an abscess. Clinical correlation recommended. 2. Bibasilar linear densities favor subsegmental atelectasis. 3. Mild cardiomegaly.
[2018-08-01] MEDS: PANTOprazole 40 MG TAB PO SCH (20:33)
[2018-08-01] MEDS: SIMVASTATIN 20 MG TAB PO SCH (20:33)
[2018-08-01] MEDS: INSULIN GLARGINE SOLOSTAR 100 UNITS/ML 3 ML PEN SC SCH (20:35)
[2018-08-01] MEDS: HEPARIN SOD 5,000 UNIT/0.5 ML VIAL SQ SCH (20:35)
[2018-08-02] MEDS: CEFAZOLIN 2000MG 2,000 MG/15 ML SYR IV SCH ×3 (00:27→16:13)
--- NOTE | 2018-08-02 04:36 | Anesthesiology Consultation ---
Date of Service August 02, 2018 Patient had pacemaker placed one month ago. Now concern for endocarditis. Assessment & Plan (1) Encounter for pre-operative examination: Chart Review Chart Review: Acceptable Risk for Surgery and Patient NOT seen in Pre Admission Testing Consults Requested none ASA ASA3 Proposed Anesthesia Anesthesia Type: MAC Risk / Benefits Reviewed With: PT / POA / Parent / Guardian, Accepts Plan and Informed Consent Obtained NPO Date Last Intake of Fluids: 08/01/18 Time Last Intake of Fluids: 19:15 Date Last Intake of Solids: 08/01/18 Time Last Intake of Solids: 19:15 History Surgery Operation Date: 08/02/18 07:45 Proposed Procedures p Transesophageal Echocardiogram with Anesthesia - Leo Simpson MD Operation Date: 08/02/18 10:00 Proposed Procedures p Pacemaker Removal - Migdalia Burgos DO Height/Weight Height: 5 ft 3 in Weight: 121 kg Allergies Allergy/AdvReac Type Severity Reaction Status Date / Time Cephalosporins Allergy Unknown Unknown Verified 07/30/18 02:19 Cipro Allergy Unknown RASH Verified 06/10/16 18:14 ciprofloxacin Allergy Unknown RASH Verified 07/30/18 02:19 clindamycin Allergy Unknown RASH Verified 07/30/18 02:19 erythromycin base Allergy Unknown Unknown Verified 07/30/18 02:19 metformin Allergy Unknown EDEMA FACE Unverified 07/30/18 02:19 AND HANDS, ITCHY Penicillins Allergy Unknown Unknown Verified 07/30/18 02:19 Sulfa (Sulfonamide Allergy Unknown . Verified 07/30/18 02:19 Antibiotics) Medications Home Medications Medication Instructions Recorded Confirmed Last Taken Lantus Solostar U-100 Insulin 35 unit SUBCUT QPM 05/08/18 07/30/18 07/28/18 aspirin [Aspir-81] 81 mg PO QAM 05/08/18 07/30/18 07/29/18 fluticasone-salmeterol 1 inh INHALATION BID 05/08/18 07/30/18 07/29/18 hydralazine 25 mg PO BID 05/08/18 07/30/18 07/29/18 ipratropium-albuterol 1 puff INHALATION QID 05/08/18 07/30/18 07/29/18 lisinopril 40 mg PO HS 05/08/18 07/30/18 07/29/18 magnesium oxide 400 mg PO BID 05/08/18 07/30/18 07/29/18 omeprazole 20 mg PO HS 05/08/18 07/30/18 07/29/18 simvastatin 20 mg PO HS 05/08/18 07/30/18 07/29/18 Novolog U-100 Insulin aspart 10 unit SUBCUT BID 06/27/18 07/30/18 07/29/18 Novolog U-100 Insulin aspart 12 units SUBCUT DAILYBL 06/27/18 07/30/18 07/29/18 clobetasol 1 applic TOPICAL BID PRN 06/27/18 07/30/18 Unknown warfarin [Coumadin] 2.5 mg PO 5XWK 06/27/18 07/30/18 06/26/18 amiodarone 200 mg PO BID 07/30/18 07/30/18 07/29/18 ferrous sulfate [iron] 325 mg PO DAILY 07/30/18 07/30/18 07/29/18 furosemide 20 mg PO QAM 07/30/18 07/30/18 07/29/18 metoprolol tartrate 50 mg PO BID 07/30/18 07/30/18 07/29/18 warfarin [Coumadin] 5 mg PO 2XWK 07/30/18 07/30/18 Unknown Active Medications Generic Name Dose Route Start Last Admin Trade Name Freq PRN Reason Stop Dose Admin Acetaminophen 650 mg 07/30/18 04:59 07/30/18 11:44 Tylenol PO 08/29/18 04:58 650 mg Q4H PRN Administration Pain or Fever Albuterol 1 puffs 07/30/18 09:00 08/01/18 20:34 Combivent Respimat INH 08/29/18 08:59 1 puffs QID ERIC Administration Amiodarone HCl 200 mg 07/31/18 09:00 08/01/18 07:41 Cordarone PO 08/30/18 08:59 200 mg DAILY ERIC Administration Aspirin 81 mg 07/30/18 09:00 08/01/18 07:42 Ecotrin Ectab PO 08/29/18 08:59 81 mg QAM ERIC Administration Ferrous Sulfate 325 mg 07/30/18 11:00 08/01/18 11:50 Feosol PO 08/29/18 10:59 325 mg DAILY@1100 ERIC Administration Furosemide 20 mg 08/01/18 09:00 08/01/18 07:42 Lasix PO 08/31/18 08:59 20 mg QAM ERIC Administration Heparin Sodium (Porcine) 5,000 units 08/01/18 21:00 08/01/18 20:35 Heparin Sodium (Porcine) SQ 08/31/18 20:59 5,000 units Q12 ERIC Administration Hydralazine HCl 25 mg 07/30/18 09:00 08/01/18 20:34 Apresoline PO 08/29/18 08:59 25 mg BID ERIC Administration Cefazolin Sodium 2,000 mg in 15 mls @ 3.75 mls/min 07/31/18 09:00 08/02/18 00:27 Ancef 2000mg IV 08/14/18 08:59 3.75 mls/min Q8H ERIC Administration Protocol Insulin Aspart 0 units 07/30/18 07:30 08/01/18 20:25 Novolog Flexpen SC 08/29/18 07:29 Not Given ACHS ERIC Insulin Glargine 35 units 07/30/18 21:00 08/01/18 20:35 Lantus Solostar Pen SC 08/29/18 20:59 35 units HS ERIC Administration Magnesium Oxide 400 mg 07/30/18 11:00 08/01/18 18:22 Mag-Ox PO 08/29/18 10:59 400 mg BID@1100,1700 ERIC Administration Metoprolol Tartrate 25 mg 07/31/18 21:00 08/01/18 20:34 Lopressor PO 08/30/18 20:59 25 mg BID ERIC Administration Miscellaneous 1 ea 07/30/18 08:00 08/02/18 00:20 Order Awaiting Action N/A 08/29/18 07:59 Not Given QS ERIC Nystatin 1 appln 07/31/18 09:00 08/01/18 20:35 Mycostatin EXT 08/30/18 08:59 1 appln BID ERIC Administration Pantoprazole Sodium 40 mg 07/30/18 21:00 08/01/18 20:33 Protonix PO 08/29/18 20:59 40 mg HS ERIC Administration Fluticasone/Salmeterol 1 puffs 07/30/18 09:00 08/01/18 20:34 Advair Diskus 250/50 INH 08/29/18 08:59 1 puffs BID ERIC Administration Simvastatin 20 mg 07/30/18 21:00 08/01/18 20:33 Zocor PO 08/29/18 20:59 20 mg HS ERIC Administration Past Medical History Medical History DM type 2 (diabetes mellitus, type 2) (Chronic) COPD (chronic obstructive pulmonary disease) (Chronic) Dyslipidemia (Chronic) Diastolic CHF (Chronic) CAD (coronary artery disease) (Chronic) Osteoarthritis (Chronic) Nocturnal hypoxemia (Chronic) CHF (congestive heart failure) (Chronic) COPD (chronic obstructive pulmonary disease) (Chronic) Type 2 diabetes mellitus (Chronic) Past Family History Family History Other No pertinent family history Past Surgical History Surgical History History of hysterectomy (Chronic) S/P adenoidectomy (Chronic) History of cataract surgery (Chronic) History of total left knee replacement (Chronic) Social History Smoking Status: Former smoker tobacco type: cigarettes Do You Dip or Chew Tobacco: No Hx Alcohol Use: No Hx Substance Use: No substance use type: does not use Review of Systems no chest pain, some Sob Physical Exam Vital Signs Last Vital Signs Temp 36.8 C 08/02/18 04:16 Pulse 61 08/02/18 04:16 Resp 16 08/02/18 04:16 BP 158/83 H 08/02/18 04:16 Pulse Ox 98 08/02/18 04:16 Constitutional + morbidly obese ENMT Mouth: + edentulous Thyromental Distance: > or= 3.5 Finger Breadths Mallampati Class: III Neck normal visual inspection Respiratory normal respiratory effort, + uses accessory muscles and + audible wheezes Cardiovascular Rate/Rhythm: regular rate; + abnormal rhythm Musculoskeletal Spine: normal cervical ROM Neurologic moves all extremities Psychiatric Orientation: alert and oriented x 3 Testing Electrocardiogram Date: 07/30/18 Atrial-paced rhythm (63) Left axis deviation Abnormal ECG When compared with ECG of 29-JUN-2018 15:59, Electronic atrial pacemaker has replaced Sinus rhythm Echocardiogram Date: 06/28/18 EF: 60 to 65% Valvular Disease: + MR (mild) Laboratory Results 08/01/18 07:23 08/01/18 07:23 Blood Type A Positive 08/01/18 07:23 Antibody Screen NEGATIVE 08/01/18 07:23 PT 16.5 Seconds (9.0-12.0) H 08/01/18 07:23 INR 1.7 (0.9-1.1) H 08/01/18 07:23 Hemoglobin A1c 5.9 % (4.5-5.6) H 07/30/18 06:45 Urine Color Yellow 07/30/18 02:00 Urine Appearance Clear (Clear) 07/30/18 02:00 Urine pH 7.0 (4.5-7.5) 07/30/18 02:00 Ur Specific [place] 1.019 (1.000-1.030) 07/30/18 02:00 Urine Protein Negative (Negative) 07/30/18 02:00 Urine Glucose (UA) Negative (Negative) 07/30/18 02:00 Urine Ketones Negative (Negative) 07/30/18 02:00 Urine Nitrite Negative (Negative) 07/30/18 02:00 Ur Leukocyte Esterase Negative (Negative) 07/30/18 02:00 Urine WBC (Auto) 1-5 /hpf (0-5) 07/30/18 02:00 Urine RBC (Auto) 0-4 /hpf (0-4) 07/30/18 02:00 U Hyaline Cast (Auto) 1-5 /lpf (0-5) 07/30/18 02:00 U Epithel Cells (Auto) >30 /lpf (0-5) H 07/30/18 02:00 Urine Bacteria (Auto) Negative (Negative) 07/30/18 02:00 07/30/18 Unknown Gram Stain - Final Chest Deep Wound Culture - Final Staphylococcus aureus 07/30/18 07:05 Blood Culture - Final Blood Staphylococcus aureus 07/30/18 01:02 Blood Culture - Final Blood Staphylococcus aureus 07/30/18 00:47 Blood Culture - Final Blood Staphylococcus aureus 07/30/18 06:45 Blood Culture - Preliminary Blood Staphylococcus aureus 08/02/18 08/01/18 07:27 20:02 POC Glucose 92 122 H
[2018-08-02] MEDS ORDERED: PROPOFOL IV EMULSION 10 MG/ML 20 ML VIAL IV ONE (07:17)
[2018-08-02] MEDS ORDERED: LIDOCAINE HCL 2% 2 ML VIAL/AMP(20MG/ML) INFIL ONE (07:28)
--- NOTE | 2018-08-02 08:24 | Anesthesiology Progress Note ---
Date of Service August 02, 2018 Anesthesia Post Procedure Vital Signs Vital Signs: Temp Pulse Pulse Resp BP BP Pulse Ox 08/02/18 04:16 36.8 C 61 16 158/83 H 98 08/01/18 23:23 36.7 C 64 16 142/58 H 97 08/01/18 20:23 36.6 C 66 18 130/62 92 08/01/18 15:46 36.7 C 67 16 119/59 L 93 08/01/18 11:47 36.7 C 70 17 148/70 H 91 Notes Mental Status: alert / awake / arousable Patient Amnestic to Procedure: Yes Nausea / Vomiting: adequately controlled Pain: adequately controlled Airway Patency, RR, SpO2: stable & adequate BP & HR: stable & adequate Hydration State: stable & adequate Anesthetic Complications: no major complications apparent and Pt Satisfied with anesthetic care
[2018-08-02] MEDS: INSULIN ASPART 100 UNITS/ML 3 ML PEN SC SCH ×4 (08:38→21:52)
[2018-08-02] MEDS: FLUTICASONE/SALMETEROL 250/50 (ADVAIR) 14 PUFF/1 INHALER INH SCH ×2 (08:39→21:49)
[2018-08-02] MEDS: IPRATROPIUM BROMIDE/ALBUTEROL respimat INH INH SCH ×4 (08:40→21:49)
[2018-08-02] MEDS: NYSTATIN POWDER 15GM BTL EXT SCH ×2 (08:41→21:51)
[2018-08-02] MEDS: HEPARIN SOD 5,000 UNIT/0.5 ML VIAL SQ SCH ×2 (08:42→21:48)
[2018-08-02 08:57] LABS: INR 1.3 (0.9-1.1); Prothrombin Time 13.1 Seconds (9.0-12.0)
--- NOTE | 2018-08-02 09:35 | History & Physical Bridge Note ---
Date of Service August 02, 2018 History & Physical Bridge Note I have examined the patient, reviewed the History & Physical and in the interval since the performance of the History & Physical I have noted the following changes of clinical significance: Pt with pacemaker pocket infection and bacteremia; ALEXA revealed no evidence of vegetation. For a pacemaker and lead extraction. Discussed the procedure and potential risks with her and consent signed by the pateint's and the patient since she had sedation earlier today for her ALEXA.
--- NOTE | 2018-08-02 09:36 | Pre Anesthesia Assessment ---
Date of Service August 02, 2018 Pre Sedation Assessment Vital Signs Temp Pulse Pulse Resp BP BP Pulse Ox 08/02/18 04:16 36.8 C 61 16 158/83 H 98 08/01/18 23:23 36.7 C 64 16 142/58 H 97 08/01/18 20:23 36.6 C 66 18 130/62 92 08/01/18 15:46 36.7 C 67 16 119/59 L 93 08/01/18 11:47 36.7 C 70 17 148/70 H 91 Cardiovascular + regular rhythm Respiratory normal respiratory effort, lungs clear to auscultation Pre-Sedation Airway Assessment Smoking Status: Former smoker Hx Sleep Apnea: No Hx Difficult Intubation: No Thyromental Distance: > or= 3.5 Finger Breadths Mallampati Class: III ASA: ASA3 Procedure Planning Contraindications for Sedation: none Current Medications Reviewed: Yes Notes The planned sedation has been discussed with the patient. Informed Consent was obtained. I have identified the patient, determined the appropriateness of sedation and have assessed the patient immediately prior to the procedure. All medicine(s) and interventions are by my order.
[2018-08-02] MEDS ORDERED: fentaNYL citrate 100 MCG/2 ML VIAL ONE ×2 (09:55→10:35)
[2018-08-02] MEDS ORDERED: MIDAZOLAM HCL 5 MG/ML 1 ML VIAL ONE ×2 (09:56→10:36)
[2018-08-02] MEDS ORDERED: LIDOCAINE HCL 1% 20 ML VIAL ONE (10:00)
[2018-08-02] MEDS ORDERED: BUPIVACAINE 0.5 % 5 MG/1 ML PF 10ML VIAL ONE (10:00)
--- NOTE | 2018-08-02 10:48 | Infectious Disease Progress Nt ---
Date of Service August 02, 2018 Assessment & Plan (1) Staphylococcus aureus bacteremia: 77-year-old female with staph aureus bacteremia with infected pacemaker. Patient for removal of pacemaker and ALEXA today. Needs follow-up blood cultures to ensure clearance of bacteremia. Total length of IV antibiotics yet to be determined. (2) Pacemaker infection: Subjective Patient seen in follow-up for infection of pacemaker pocket with bacteremia. Tolerating antibiotics without apparent difficulty. Awaiting removal of pacemaker later today. Offers no new complaints. Review of Systems All systems reviewed & are unremarkable except as noted in HPI & below Physical Exam Vital Signs (Past 24 Hours): Last Vital Signs Temp 37.2 C 08/02/18 08:00 Pulse 65 08/02/18 08:00 Resp 20 08/02/18 08:00 BP 132/70 08/02/18 08:00 Pulse Ox 94 08/02/18 08:00 Constitutional: WD/WN, vitals as above comfortable; no acute distress Eyes: PERRL, conjunctivae normal, anicteric sclerae ENMT: external ear and nose normal, oropharynx normal Neck: trachea midline, no thyromegaly neck nontender Respiratory: normal respiratory effort, lungs clear to auscultation normal percussion; does not use accessory muscles Cardiovascular: Rate/Rhythm: regular rate and regular rhythm Heart Sounds: normal S1 and normal S2; no gallop, no murmur and no cardiac rub Vessels: normal peripheral pulses; no JVD Extremities: + edema (1-2+ lower extremity) Gastrointestinal (Abdomen): normal bowel sounds, soft, nontender, no hepatosplenomegaly Musculoskeletal: no cyanosis or clubbing, extremities motor strength 5/5 Spine: thoracic spine normal to inspection and lumbar spine normal to inspection; no cervical spinal tenderness Skin: normal turgor; no rashes and no lesions Neurologic: patellar DTR's 2+ bilat, sensation intact no focal motor deficits Psychiatric: A+Ox3, euthymic affect Orientation: cooperative Lymphatic: no cervical or axillary lymphadenopathy no inguinal lymphadenopathy Results & Data Laboratory Results Laboratory Results - last 48 hr 07/31/18 07/31/18 07/31/18 11:27 16:20 20:17 WBC RBC Hgb Hct MCV MCH MCHC RDW Std Deviation RDW Coeff of [place] Plt Count MPV Immature Gran % (Auto) Neut % (Auto) Lymph % (Auto) [place] % (Auto) Eos % (Auto) Baso % (Auto) Immature Gran # (Auto) Neut # (Auto) Lymph # (Auto) [place] # (Auto) Eos # (Auto) Baso # (Auto) Platelet Estimate Giant Platelets PT INR Sodium Potassium Chloride Carbon Dioxide Anion Gap BUN Creatinine Est Cr Clr Drug Dosing Est GFR ( Amer) Est GFR (Non-Af Amer) BUN/Creatinine Ratio Glucose POC Glucose 126 H 79 96 Calcium Total Bilirubin AST ALT Alkaline Phosphatase Total Protein Albumin Globulin Albumin/Globulin Ratio Blood Type Antibody Screen 08/01/18 08/01/18 08/01/18 07:23 07:23 07:23 WBC 7.07 RBC 3.91 L Hgb 10.6 L Hct 35.1 L MCV 89.8 MCH 27.1 MCHC 30.2 L RDW Std Deviation 58.5 H RDW Coeff of [place] 17.6 H Plt Count 90 L MPV 12.7 H Immature Gran % (Auto) 0.3 Neut % (Auto) 73.3 Lymph % (Auto) 13.9 [place] % (Auto) 7.8 Eos % (Auto) 4.4 Baso % (Auto) 0.3 Immature Gran # (Auto) 0.02 Neut # (Auto) 5.19 Lymph # (Auto) 0.98 L [place] # (Auto) 0.55 Eos # (Auto) 0.31 Baso # (Auto) 0.02 Platelet Estimate Decreased Giant Platelets 1+ PT 16.5 H INR 1.7 H Sodium Potassium Chloride Carbon Dioxide Anion Gap BUN Creatinine Est Cr Clr Drug Dosing Est GFR ( Amer) Est GFR (Non-Af Amer) BUN/Creatinine Ratio Glucose POC Glucose Calcium Total Bilirubin AST ALT Alkaline Phosphatase Total Protein Albumin Globulin Albumin/Globulin Ratio Blood Type A Positive Antibody Screen NEGATIVE 08/01/18 08/01/18 08/01/18 07:23 11:47 16:12 WBC RBC Hgb Hct MCV MCH MCHC RDW Std Deviation RDW Coeff of [place] Plt Count MPV Immature Gran % (Auto) Neut % (Auto) Lymph % (Auto) [place] % (Auto) Eos % (Auto) Baso % (Auto) Immature Gran # (Auto) Neut # (Auto) Lymph # (Auto) [place] # (Auto) Eos # (Auto) Baso # (Auto) Platelet Estimate Giant Platelets PT INR Sodium 140 Potassium 4.2 Chloride 105 Carbon Dioxide 31 Anion Gap 5.0 BUN 23 H Creatinine 0.95 Est Cr Clr Drug Dosing 63.5 Est GFR ( Amer) 67.4 Est GFR (Non-Af Amer) 58.2 BUN/Creatinine Ratio 24.2 H Glucose 88 POC Glucose 115 H 108 H Calcium 8.4 L Total Bilirubin 0.5 AST 28 ALT 19 Alkaline Phosphatase 104 Total Protein 6.3 L Albumin 2.3 L Globulin 4.0 Albumin/Globulin Ratio 0.6 L Blood Type Antibody Screen 08/01/18 08/02/18 08/02/18 20:02 07:27 08:39 WBC RBC Hgb Hct MCV MCH MCHC RDW Std Deviation RDW Coeff of [place] Plt Count MPV Immature Gran % (Auto) Neut % (Auto) Lymph % (Auto) [place] % (Auto) Eos % (Auto) Baso % (Auto) Immature Gran # (Auto) Neut # (Auto) Lymph # (Auto) [place] # (Auto) Eos # (Auto) Baso # (Auto) Platelet Estimate Giant Platelets PT 13.1 H INR 1.3 H Sodium Potassium Chloride Carbon Dioxide Anion Gap BUN Creatinine Est Cr Clr Drug Dosing Est GFR ( Amer) Est GFR (Non-Af Amer) BUN/Creatinine Ratio Glucose POC Glucose 122 H 92 Calcium Total Bilirubin AST ALT Alkaline Phosphatase Total Protein Albumin Globulin Albumin/Globulin Ratio Blood Type Antibody Screen Diagnostic Findings Microbiology 07/30/18 Unknown Chest Gram Stain - Final 07/30/18 Unknown Chest Deep Wound Culture - Final Staphylococcus aureus 07/30/18 07:05 Blood Blood Culture - Final Staphylococcus aureus 07/30/18 01:02 Blood Blood Culture - Final Staphylococcus aureus 07/30/18 00:47 Blood Blood Culture - Final Staphylococcus aureus 07/30/18 06:45 Blood Blood Culture - Preliminary Staphylococcus aureus
--- NOTE | 2018-08-02 11:09 | Post Anesthesia Assessment ---
Date of Service August 02, 2018 Post Sedation Assessment Vital Signs Temp Pulse Pulse Resp BP BP Pulse Ox 08/02/18 08:00 37.2 C 65 20 132/70 94 08/02/18 04:16 36.8 C 61 16 158/83 H 98 08/01/18 23:23 36.7 C 64 16 142/58 H 97 08/01/18 20:23 36.6 C 66 18 130/62 92 08/01/18 15:46 36.7 C 67 16 119/59 L 93 08/01/18 11:47 36.7 C 70 17 148/70 H 91 Recovery Score Activity: Moves 4 extremities Respiration: Deep Breath/Cough Circulation: +/-20% PreAnes Value Consciousness: Fully Awake Oxygen Saturation: > 92% On Room Air Discharge Sedation Level of Care: Fast Track Phase II Post Sedation Plan On clinical assessment, the patient appears to have tolerated the sedation without complications. Patient is recovering as anticipated. Patient will continue to be monitored by nursing and may be discharged when sedation discharge criteria are met per below protocol. Upon Completions of procedure and additional 15 minutes continue every 5 minute vital signs and the P.A.R. score; then discharge to a Phase I or Fast Track to Phase II per the following guidelines: * Discharge Patient to appropriate Phase II area if PAR is 8 or greater or return to pre- procedure baseline. The post - procedure orders will be as directed. * If PAR score is less than 8 or not return to pre-procedure baseline then patient will follow Phase I monitoring till PAR is reached for Phase II. The Phase I may be done in procedure room or may call to secure a Phase I area. * If naloxone or flumazenil are used for reversal, hold in Phase I for continued monitoring from when last reversal dose was given for a minimum of 60 minutes or longer pending the nurse and/or physician discretion of patient condition before discharge to Phase II. Please call the Sedation Physician to re-evaluate and complete post-note for discharge to Phase II area. Do NOT discharge from procedure sedation or Phase 1 until post- sedation evaluation note is complete by procedure /sedation MD Sedation Discharge Instructions to be given to the patient at discharge to home.
[2018-08-02] MEDS ORDERED: ACETAMINOPHEN 325 MG TAB PO PRN (11:10)
[2018-08-02] MEDS ORDERED: OXYCODONE/ACETAMINOPHEN 5mg/325mg TAB PO PRN (11:10)
--- NOTE | 2018-08-02 11:10 | Operative Report ---
Post Operative Report Pre & Post Diagnosis Pacemaker pocket infection and bactermia Operation Date: 08/02/18 07:45 <No data on this case meets the specified criteria> Operation Date: 08/02/18 10:00 <No data on this case meets the specified criteria> Procedure Operation Date: 08/02/18 10:00 Actual Procedures s Lead, Extraction Dual Pacing(Left) - Migdalia Burgos DO p Pacer Removal(Left) - Migdalia Burgos DO Surgeon Migdalia Burgos, Customer Experience Leader none Estimated Blood Loss 25 Findings Consistent with Post-Op Diagnosis Specimens none Description of Procedure see official report I attest to the content of the Intraoperative Record and any orders documented therein. Any exceptions are noted below.
[2018-08-02] MEDS: AMIODARONE 200 MG TAB PO SCH (12:22)
[2018-08-02] MEDS: ASPIRIN 81 MG ECTAB PO SCH (12:22)
[2018-08-02] MEDS: FUROSEMIDE 20 MG TAB PO SCH (12:22)
[2018-08-02] MEDS: FERROUS SULFATE 325 MG TAB PO SCH (12:23)
[2018-08-02] MEDS: MAGNESIUM OXIDE 400 MG TAB PO SCH ×2 (12:23→16:12)
[2018-08-02] MEDS: METOPROLOL TARTRATE 25 MG TAB PO SCH (13:37)
[2018-08-02 13:46] LABS: Albumin Level 2.3 gm/dl (3.4-5.0); BUN Creatinine Ratio 22.2 (10-20); Calcium 7.8 mg/dl (8.5-10.1); Creatinine Clr Calc Pharmacy 60.6 ml/min; Est GFR (African American) 64.2; Est GFR (Non-African American) 55.4; Potassium 3.9 mmol/L (3.5-5.1)
[2018-08-02 13:49] LABS: Albumin Globulin Ratio 0.6 (0.9-2); Bilirubin,Total 0.4 mg/dl (0.2-1); Total Protein 6.3 gm/dl (6.4-8.2)
[2018-08-02 14:09] LABS: Hematocrit (blood only) 34.7 % (37-47); Hemoglobin 10.4 g/dL (12.0-16.0); Mean Corpuscular Volume 89.4 fL (80-100); Mean Platelet Volume 12.1 fL (7.4-10.4); Platelet Count 110 K/uL (130-400); RDW Coefficient of Variation 17.4 % (11.5-14.5); RDW Standard Deviation 57.1 fL (36.4-46.3); Red Blood Count 3.88 M/uL (4.2-5.4); White Blood Count 6.55 K/uL (4.8-10.8)
[2018-08-02 14:21] LABS: Basophils # (auto) 0.03 K/uL (0-0.2); Basophils % (auto) 0.5 %; Eosinophils # (auto) 0.18 K/uL (0-0.5); Eosinophils % (auto) 2.7 %; Immature Granulocytes # (auto) 0.02 K/uL (0.00-0.02); Immature Granulocytes % (auto) 0.3 %; Lymphocytes # (auto) 1.12 K/uL (1.2-3.4); Lymphocytes % (auto) 17.1 %; Monocytes # (auto) 0.46 K/uL (0.11-0.59); Neutrophils # (auto) 4.74 K/uL (1.4-6.5); Neutrophils % (auto) 72.4 %
--- NOTE | 2018-08-02 15:06 | Operative Report ---
DATE OF OPERATION: 08/02/2018 PREOPERATIVE DIAGNOSES: Bacteremia and pacemaker pocket infection. POSTOPERATIVE DIAGNOSES: Bacteremia and pacemaker pocket infection. PROCEDURE: Dual chamber rate responsive permanent pacemaker extraction under fluoroscopic guidance. SURGEON: Migdalia Burgos DO. PIGMENT MIXER: None. ANESTHESIA: Monitored conscious sedation administered under my supervision by Rogelio Mcginnis. Start time 09:59, end time 11:05. Total of 7 mg of Versed, 175 mcg fentanyl. IV FLUIDS: 40 mL. BLOOD LOSS: 25 mL. URINE OUTPUT: Not applicable. SPECIMENS: None. FINDINGS: See below. DRAINS: None. INDICATIONS: This is a 77-year-old female who has a past medical history of tachybrady syndrome, paroxysmal atrial fibrillation, CHADS2-VASc score of 4, on beta blockers, Coumadin, amiodarone, history of noncompliance, chronic diastolic heart failure, [place] Heart Association class 3, hypertension, diabetes, hyperlipidemia, morbid obesity, iron deficiency anemia, and history of tobacco use. Back in June of 2018, she was admitted to [facility] and found to have tachybrady syndrome with long conversion pauses and underwent a dual chamber rate response of left-sided permanent pacemaker on 06/29/2018. She had a gap in followup after the pacemaker and then most recently saw the PA in our office who did notice a slight hematoma, but nothing screamed infection, but then however, the patient few days later presented to [facility] with pus extracting from her pacemaker pocket. Blood cultures were positive for methicillin-sensitive Staph aureus and so was the pacemaker wound culture and so she was recommended pacemaker extraction. CONSENT: Due to the patient having a ALEXA earlier in the morning and got sedation, consent was obtained through the patient's as well as through the patient. She and her were explained the potential risks to the procedure that include but not limited to sudden cardiac , cardiac arrhythmias, cerebrovascular accident, myocardial infarction, injury to the blood vessels, chamber of the heart, bleeding and persistent infection. The patient understood these risks as well as did her and both of them signed the consent. DESCRIPTION OF THE PROCEDURE: The patient was brought into the electrophysiology lab in a fasting state. She was attached to continuous conveyor monitor. A timeout was performed to ensure patient identity and procedure correctly. The patient was prepped and draped over the left infraclavicular space in normal surgical standard fashion. Monitored conscious sedation was given throughout the procedure for the patient's comfort level. [place] precautions were maintained throughout the procedure. 10 mL of 1% lidocaine were given over the prior surgical incision. Incision was made over the prior surgical incision. Immediately, bloody and pus extruded out of the pocket. This was all suctioned out. Blunt dissection was continued down to the pulse generator. Pulse generator was removed from the pocket, detached from the leads. Then, blunt dissection was performed down to the suture sleeves. The sutures were then nicked with an 11 blade and then stylets were placed down both leads. Then under x-ray guidance, the screws were retracted and with gentle retraction, both leads were pulled, first the right atrium, then the right ventricle under fluoroscopic guidance without any problems. Blood pressures remained relatively stable during this as well as heart rates. It did seem that in the medial aspect of the incision, there may have been another pocket of blood collection, I have a feeling this may have been around the pursestring that I had to do during the procedure initially, so I did do some more blunt dissection in the medial aspect of the wound and did find more bloody discharge. Then, the pocket was flushed with copious amounts of bacitracin saline wash as well as another round of saline. Then, the iodoform was stuffed in the pocket with a tail hanging out in the lateral edge of the border of the incision. The incision was approximated using a mattress stitch with 3-0 Ethilon suture, and then, the procedure was over. EQUIPMENT: 1. Explanted generator is an Arjun XT DR MRI [id number], serial #[id number], implanted 06/29/2018. 2. Right atrial lead, 5076-52 cm, serial #[id number], implanted 06/29/2018. 3. Right ventricular lead, 5076-58 cm, serial #[id number], implanted 06/29/2018. IMPRESSION: Successful dual chamber rate responsive permanent pacemaker extraction under fluoroscopic guidance secondary to bacteremia and pacemaker pocket infection. PLAN: Stop her metoprolol. Continue amiodarone 200 mg daily. Would hold her Coumadin for a few more days. Dressing change with the iodoform packing as needed based on the saturation of the Iodoform. I have a feeling the next day or two it might need to be more frequent. IV antibiotic course as per ID. Once she clears her bacteremia eventually as an outpatient, will reassess the need for a right-sided dual chamber pacemaker, and upon hospital discharge, she should be seen in our device clinic in [facility] on a Wednesday morning 1 week after hospital discharge. I attest to the content of the Intraoperative Record and any orders documented therein. Any exception s are noted below.
--- NOTE | 2018-08-02 17:20 | Hospitalist Progress Note ---
Date of Service August 02, 2018 Assessment & Plan (1) Pacemaker infection: pacemaker infection likely as source of infection and sepsis Staphylococcus aureus Bacteremia There is a 5 cm fluid collection surrounding the left pacemaker on CT imaging initially on broad-spectrum antibiotics with aztreonam and vancomycin and doxycycline from admission 07/31/18 cultures have returned as Staph Aureus in blood cultures and PCR is negative for MRSA. will transition from the triple antibiotics to cefazolin 2grams q 8 hours culture from pacemaker pocket expressed drainage also with Staph Aureus 08/02/18: pacemaker extraction and ALEXA did not show endocarditis, continue cefazolin IV, repeat blood cultures were sent, as per postop notes: Stop her metoprolol. Continue amiodarone 200 mg daily. Paroxysmal A-fib: supratherapeutic INR has been reversed by cardiology service after vitamin K on 07/31/18 and INR on 08/02/18 is 1.7 pacemaker extraction on 08/02/18 and will not resume coumadin today rate and rhythm control for now with amiodarone 200 mg daily Chronic respiratory failure secondary to COPD patient typically uses 2 liters/min at night at home continue home inhalers No evidence for pneumonia on room air during daytime acute on chronic diastolic heart failure hold off Spirolactone for now as blood pressures somewhat low, resume gradually Initially home dose oral Lasix was held because of low blood pressure, but patient seen to have more volume overload on 07/31/18 and given Lasix 40 mg IV x 1, received oral Lasix 20 mg on 08/01/18, continue oral Lasix 20 mg daily Continue Lopressor and hydralazine with holding parameters. On aspirin and statin. will resume lisinopril after the pacemaker extraction or if blood pressures becomes high Bilateral lower extremity Cellulitis already on antibiotics for bacteremia negative urine analysis Type 2 Diabetes mellitus controlled on long term care social worker insulin -continue home dose long acting insulin -sliding scale insulin as needed Morbid obesity with BMI 47.3 in adult encourage ambulation PT/OT evaluations Gastroesophageal reflux disease Continue proton pump inhibitors DVT ppx: continue to hold coumadin after the pacemaker extraction on 08/02/18, continue DVT ppx with subcutaneous heparin Full Code campos Caro [phone] Subjective Patient seen and examined today after returned from pacemaker extraction Patient denies acute pain and denies shortness of breath Patient denies lightheadedness or headache Patient has less leg erythema today Physical Exam Vital Signs (Past 24 Hours): Last Vital Signs Temp 37.1 C 08/02/18 14:50 Pulse 71 08/02/18 14:50 Resp 18 08/02/18 14:50 BP 135/69 08/02/18 14:50 Pulse Ox 91 08/02/18 14:50 Constitutional: + obese Eyes: PERRL, conjunctivae normal, anicteric sclerae EOM intact bilaterally ENMT: external ear and nose normal, oropharynx normal Respiratory: normal respiratory effort, lungs clear to auscultation Cardiovascular: Rate/Rhythm: regular rate Chest (Breasts): Additional Comments: left chest s/p pacemaker removed and with closed wound Gastrointestinal (Abdomen): normal bowel sounds, soft, nontender, no hepatosplenomegaly Musculoskeletal: Head/Neck/Chest: normocephalic and head atraumatic Extremities: + lower extremity abnormal to inspection (bilateral warmth of the legs between knees and ankles) Neurologic: PERRL, EOMI, accommodation nl, no face palsy, no dysarthria CN's II-XI intact bilaterally Psychiatric: A+Ox3, euthymic affect
--- NOTE | 2018-08-02 18:43 | Cardiology Progress Note ---
Date of Service August 02, 2018 Assessment & Plan (1) Pacemaker infection: Pacemaker extracted today as per operative report, purulent drainage removed Patient continuing intravenous antibiotic therapy with ID consultation (2) Paroxysmal A-fib: Amiodarone reduced to 200 mg/day. Metoprolol discontinued anticipate resumption of warfarin 1-2 days (3) Staphylococcus aureus bacteremia: Sepsis picture is improved Subjective Patient seen after return from pacemaker extraction as well as prior and during transesophageal echocardiogram. Feels groggy currently but no other focal complaint Pacemaker extraction without issue, purulent material removed iodoform gauze drain placed No fevers or chills Telemetry no further arrhythmias or bradycardia Physical Exam Vital Signs (Past 24 Hours): Last Vital Signs Temp 37.1 C 08/02/18 14:50 Pulse 71 08/02/18 14:50 Resp 18 08/02/18 14:50 BP 135/69 08/02/18 14:50 Pulse Ox 91 08/02/18 14:50 Constitutional: + obese; no acute distress Eyes: PERRL, conjunctivae normal, anicteric sclerae Neck: trachea midline, no thyromegaly + thick neck Respiratory: no audible wheezes Auscultation: + diminished lung sounds (Clear to auscultation) Cardiovascular: Rate/Rhythm: regular rate and regular rhythm Heart Sounds: normal S1 and normal S2; no gallop and no cardiac rub Extremities: + edema (1-2+ lower extremity) Chest (Breasts): Additional Comments: Surgical incision without surrounding hematoma or drainage Gastrointestinal (Abdomen): normal bowel sounds, soft, nontender, no hepatosplenomegaly Psychiatric: A+Ox3, euthymic affect Results & Data Laboratory Results Laboratory Results - last 24 hr 08/01/18 08/01/18 08/02/18 07:23 20:02 07:27 WBC RBC Hgb Hct MCV MCH MCHC RDW Std Deviation RDW Coeff of Silvana Plt Count MPV Immature Gran % (Auto) Neut % (Auto) Lymph % (Auto) [place] % (Auto) Eos % (Auto) Baso % (Auto) Immature Gran # (Auto) Neut # (Auto) Lymph # (Auto) [place] # (Auto) Eos # (Auto) Baso # (Auto) PT INR Sodium Potassium Chloride Carbon Dioxide Anion Gap BUN Creatinine Est Cr Clr Drug Dosing Est GFR ( Amer) Est GFR (Non-Af Amer) BUN/Creatinine Ratio Glucose POC Glucose 122 H 92 Calcium Total Bilirubin AST ALT Alkaline Phosphatase Total Protein Albumin Globulin Albumin/Globulin Ratio Antibody Screen NEGATIVE 08/02/18 08/02/18 08/02/18 08:39 11:53 12:53 WBC 6.55 RBC 3.88 L Hgb 10.4 L Hct 34.7 L MCV 89.4 MCH 26.8 MCHC 30.0 L RDW Std Deviation 57.1 H RDW Coeff of Silvana 17.4 H Plt Count 110 L MPV 12.1 H Immature Gran % (Auto) 0.3 Neut % (Auto) 72.4 Lymph % (Auto) 17.1 [place] % (Auto) 7.0 Eos % (Auto) 2.7 Baso % (Auto) 0.5 Immature Gran # (Auto) 0.02 Neut # (Auto) 4.74 Lymph # (Auto) 1.12 L [place] # (Auto) 0.46 Eos # (Auto) 0.18 Baso # (Auto) 0.03 PT 13.1 H INR 1.3 H Sodium Potassium Chloride Carbon Dioxide Anion Gap BUN Creatinine Est Cr Clr Drug Dosing Est GFR ( Amer) Est GFR (Non-Af Amer) BUN/Creatinine Ratio Glucose POC Glucose 100 H Calcium Total Bilirubin AST ALT Alkaline Phosphatase Total Protein Albumin Globulin Albumin/Globulin Ratio Antibody Screen 08/02/18 08/02/18 12:53 16:13 WBC RBC Hgb Hct MCV MCH MCHC RDW Std Deviation RDW Coeff of Silvana Plt Count MPV Immature Gran % (Auto) Neut % (Auto) Lymph % (Auto) [place] % (Auto) Eos % (Auto) Baso % (Auto) Immature Gran # (Auto) Neut # (Auto) Lymph # (Auto) [place] # (Auto) Eos # (Auto) Baso # (Auto) PT INR Sodium 139 Potassium 3.9 Chloride 105 Carbon Dioxide 30 Anion Gap 4.0 BUN 22 H Creatinine 0.99 Est Cr Clr Drug Dosing 60.6 Est GFR ( Amer) 64.2 Est GFR (Non-Af Amer) 55.4 BUN/Creatinine Ratio 22.2 H Glucose 145 H POC Glucose 86 Calcium 7.8 L Total Bilirubin 0.4 AST 19 ALT 10 L Alkaline Phosphatase 106 Total Protein 6.3 L Albumin 2.3 L Globulin 4.0 Albumin/Globulin Ratio 0.6 L Antibody Screen Diagnostic Findings Transesophageal echocardiogram 08/02/2018 Normal l LV size and function Normal valvular structures no evidence of vegetation Pacemaker leads without vegetation or thrombus with good visualization
[2018-08-02] MEDS ORDERED: ATROPINE SULFATE 0.1 MG/ML 5ML SYR IV PRN (20:31)
[2018-08-02] MEDS ORDERED: POTASSIUM CHLORIDE 20 MEQ TABCR PO STA (20:32)
[2018-08-02] MEDS: MAGNESIUM SULFATE / D5W 1 GM/100 ML BAG IV SCH ×2 (21:47→22:44)
[2018-08-02] MEDS: INSULIN GLARGINE SOLOSTAR 100 UNITS/ML 3 ML PEN SC SCH (21:51)
[2018-08-02] MEDS: SIMVASTATIN 20 MG TAB PO SCH (22:44)
[2018-08-02] MEDS: PANTOprazole 40 MG TAB PO SCH (22:44)
[2018-08-03] MEDS: CEFAZOLIN 2000MG 2,000 MG/15 ML SYR IV SCH ×3 (01:04→17:23)
[2018-08-03 08:28] LABS: INR 1.4 (0.9-1.1); Prothrombin Time 14.1 Seconds (9.0-12.0)
[2018-08-03] MEDS: FUROSEMIDE 20 MG TAB PO SCH (09:37)
[2018-08-03] MEDS: MAGNESIUM OXIDE 400 MG TAB PO SCH ×2 (09:37→17:28)
[2018-08-03] MEDS: AMIODARONE 200 MG TAB PO SCH (09:37)
[2018-08-03] MEDS: FERROUS SULFATE 325 MG TAB PO SCH (09:37)
[2018-08-03] MEDS: ASPIRIN 81 MG ECTAB PO SCH (09:37)
[2018-08-03] MEDS: INSULIN ASPART 100 UNITS/ML 3 ML PEN SC SCH ×4 (09:38→21:04)
[2018-08-03] MEDS: FLUTICASONE/SALMETEROL 250/50 (ADVAIR) 14 PUFF/1 INHALER INH SCH ×2 (09:41→21:02)
[2018-08-03] MEDS: HEPARIN SOD 5,000 UNIT/0.5 ML VIAL SQ SCH (09:41)
[2018-08-03] MEDS: IPRATROPIUM BROMIDE/ALBUTEROL respimat INH INH SCH ×4 (09:41→21:03)
[2018-08-03] MEDS: NYSTATIN POWDER 15GM BTL EXT SCH ×2 (09:42→21:04)
--- NOTE | 2018-08-03 11:20 | Anesthesiology Progress Note ---
Date of Service August 03, 2018 Anesthesia Post Procedure Vital Signs Vital Signs: Temp Pulse Pulse Resp BP BP Pulse Ox 08/03/18 11:17 36.8 C 69 20 122/75 93 08/03/18 06:44 36.6 C 68 20 145/62 H 94 08/03/18 04:17 36.5 C 68 19 156/89 H 92 08/02/18 23:54 36.7 C 71 19 149/59 H 92 08/02/18 19:42 37.4 C 79 18 139/71 93 08/02/18 14:50 37.1 C 71 18 135/69 91 08/02/18 12:01 37.0 C 85 18 168/82 H 90 Notes Mental Status: alert / awake / arousable and participated in evaluation Patient Amnestic to Procedure: Yes Nausea / Vomiting: adequately controlled Pain: adequately controlled Airway Patency, RR, SpO2: stable & adequate BP & HR: stable & adequate Hydration State: stable & adequate Anesthetic Complications: no major complications apparent
[2018-08-03] MEDS ORDERED: TAP WATER ENEMA PR STA (12:49)
--- NOTE | 2018-08-03 13:53 | Infectious Disease Progress Nt ---
Date of Service August 03, 2018 Assessment & Plan (1) Staphylococcus aureus septicemia: will continue current IV abx, follow 08/02 cultures. will need 6 weeks IV abx from first negative culture. pacemaker out. Subjective pt seen in followup, oob to chair on my exam. s/p pacemaker removal and ALEXA 08/02 - pod #1. tolerated well. no pain, ALEXA negative. remains on IV ancef. afebrile. no abd pain, no n/v/d. no cp, sob, cough, tolerating abx. no am labs. blood cultures done yesterday post op, pending currently. all remaining ros reviewed and are negative. Physical Exam Vital Signs (Past 24 Hours): Last Vital Signs Temp 36.8 C 08/03/18 11:17 Pulse 69 08/03/18 11:17 Resp 20 08/03/18 11:17 BP 122/75 08/03/18 11:17 Pulse Ox 93 08/03/18 11:17 Constitutional: WD/WN, vitals as above Eyes: PERRL, conjunctivae normal, anicteric sclerae ENMT: external ear and nose normal, oropharynx normal Neck: normal visual inspection Respiratory: normal respiratory effort, lungs clear to auscultation Auscultation: + diminished lung sounds Cardiovascular: RRR, no murmur, no edema Gastrointestinal (Abdomen): normal bowel sounds, soft, nontender, no hepatosplenomegaly Musculoskeletal: no cyanosis or clubbing, extremities motor strength 5/5 Skin: no rashes, warm and dry Psychiatric: A+Ox3, euthymic affect Results & Data Laboratory Results Microbiology 07/30/18 Unknown Chest Gram Stain - Final 07/30/18 Unknown Chest Deep Wound Culture - Final Staphylococcus aureus 07/30/18 07:05 Blood Blood Culture - Final Staphylococcus aureus 07/30/18 01:02 Blood Blood Culture - Final Staphylococcus aureus 07/30/18 00:47 Blood Blood Culture - Final Staphylococcus aureus 07/30/18 06:45 Blood Blood Culture - Preliminary Staphylococcus aureus
--- NOTE | 2018-08-03 18:07 | Cardiology Progress Note ---
Date of Service August 03, 2018 Assessment & Plan (1) Pacemaker infection: Status post pacemaker extraction on IV antibiotics as per ID (2) Paroxysmal A-fib: Amiodarone reduced to 200 mg/day. Resume warfarin (3) Staphylococcus aureus bacteremia: Sepsis picture is improved Subjective Only complaint today tenderness at surgical site no drainage No fevers or chills Telemetry no further arrhythmias or bradycardia Physical Exam Vital Signs (Past 24 Hours): Last Vital Signs Temp 36.8 C 08/03/18 15:00 Pulse 69 08/03/18 16:00 Resp 20 08/03/18 15:00 BP 156/53 H 08/03/18 15:00 Pulse Ox 95 08/03/18 15:00 Constitutional: + obese; no acute distress Eyes: PERRL, conjunctivae normal, anicteric sclerae Neck: trachea midline, no thyromegaly + thick neck Respiratory: no audible wheezes Auscultation: + diminished lung sounds (Clear to auscultation) Cardiovascular: Rate/Rhythm: regular rate and regular rhythm Heart Sounds: normal S1 and normal S2; no gallop and no cardiac rub Extremities: + edema (1-2+ lower extremity) Chest (Breasts): Chest: + pacemaker (Pocket site no longer draining) Gastrointestinal (Abdomen): normal bowel sounds, soft, nontender, no hepatosplenomegaly Psychiatric: A+Ox3, euthymic affect Results & Data Laboratory Results Laboratory Results - last 24 hr 08/02/18 08/02/18 08/03/18 20:34 20:43 07:37 PT 14.1 H INR 1.4 H POC Glucose 113 H Magnesium 1.5 L 08/03/18 08/03/18 08/03/18 07:45 11:10 16:12 PT INR POC Glucose 86 169 H 182 H Magnesium
[2018-08-03] MEDS ORDERED: WARFARIN SOD 2.5 MG TAB PO ONE (19:18)
--- NOTE | 2018-08-03 19:25 | Hospitalist Progress Note ---
Date of Service August 03, 2018 Assessment & Plan (1) Pacemaker infection: pacemaker infection likely as source of infection and sepsis Staphylococcus aureus Bacteremia There is a 5 cm fluid collection surrounding the left pacemaker on CT imaging initially on broad-spectrum antibiotics with aztreonam and vancomycin and doxycycline from admission 07/31/18 cultures have returned as Staph Aureus in blood cultures and PCR is negative for MRSA. will transition from the triple antibiotics to cefazolin 2grams q 8 hours culture from pacemaker pocket expressed drainage also with Staph Aureus 08/02/18: pacemaker extraction and ALEXA did not show endocarditis, continue cefazolin IV, repeat blood cultures were sent, as per postop notes: Stop her metoprolol. Continue amiodarone 200 mg daily. 08/03/18: as per ID will continue current IV abx, follow 08/02/18 cultures. will need 6 weeks IV abx from first negative culture Paroxysmal A-fib: supratherapeutic INR has been reversed by cardiology service after vitamin K on 07/31/18 and INR on 08/02/18 is 1.7 pacemaker extraction on 08/02/18 and will not resume coumadin today rate and rhythm control for now with amiodarone 200 mg daily as per cardiology 08/03/18, coumadin resumed and will continue as 2.5 mg daily to avoid supratherapeutic INR Chronic respiratory failure secondary to COPD patient typically uses 2 liters/min at night at home continue home inhalers No evidence for pneumonia on room air during daytime acute on chronic diastolic heart failure hold off Spirolactone for now as blood pressures somewhat low, resume gradually Initially home dose oral Lasix was held because of low blood pressure, but patient seen to have more volume overload on 07/31/18 and given Lasix 40 mg IV x 1, received oral Lasix 20 mg on 08/01/18, continue oral Lasix 20 mg daily Continue Lopressor and hydralazine with holding parameters. On aspirin and statin. will resume lisinopril after the pacemaker extraction or if blood pressures becomes high Bilateral lower extremity Cellulitis already on antibiotics for bacteremia negative urine analysis The leg erythema has generally resolved and what remains are chronic skin discolorations Type 2 Diabetes mellitus controlled on terminal operator insulin -continue home dose long acting insulin -sliding scale insulin as needed Morbid obesity with BMI 47.3 in adult encourage ambulation PT/OT evaluations Gastroesophageal reflux disease Continue proton pump inhibitors DVT ppx: coumadin resumed on 08/03/18 , continue DVT ppx with SCDs Full Code son Gordo [phone] Subjective Patient seen and examined today wound care of left pacemaker wound and packing followed by nursing staff Patient denies acute pain and denies shortness of breath, is on room air needed enema today but made the bowel movements The leg erythema has generally resolved and what remains are chronic skin discolorations Physical Exam Vital Signs (Past 24 Hours): Last Vital Signs Temp 36.7 C 08/03/18 18:30 Pulse 85 08/03/18 18:30 Resp 18 08/03/18 18:30 BP 157/71 H 08/03/18 18:30 Pulse Ox 92 08/03/18 18:30 Constitutional: + obese Eyes: PERRL, conjunctivae normal, anicteric sclerae EOM intact bilaterally ENMT: external ear and nose normal, oropharynx normal Respiratory: normal respiratory effort, lungs clear to auscultation Cardiovascular: Rate/Rhythm: regular rate Extremities: + edema (swelling of hands) Chest (Breasts): Additional Comments: left pacemaker area wound care Gastrointestinal (Abdomen): normal bowel sounds, soft, nontender, no hepatosplenomegaly Musculoskeletal: no cyanosis or clubbing, extremities motor strength 5/5 (lower extremity erythema has resolved) Head/Neck/Chest: normocephalic and head atraumatic Neurologic: PERRL, EOMI, accommodation nl, no face palsy, no dysarthria CN's II-XI intact bilaterally Psychiatric: A+Ox3, euthymic affect
[2018-08-03] MEDS: INSULIN GLARGINE SOLOSTAR 100 UNITS/ML 3 ML PEN SC SCH (21:06)
[2018-08-03] MEDS: PANTOprazole 40 MG TAB PO SCH (21:07)
[2018-08-03] MEDS: SIMVASTATIN 20 MG TAB PO SCH (21:08)
[2018-08-04] MEDS: CEFAZOLIN 2000MG 2,000 MG/15 ML SYR IV SCH ×3 (00:46→17:11)
[2018-08-04 07:23] LABS: Basophils # (auto) 0.04 K/uL (0-0.2); Basophils % (auto) 0.7 %; Eosinophils # (auto) 0.24 K/uL (0-0.5); Eosinophils % (auto) 4.2 %; Immature Granulocytes # (auto) 0.21 K/uL (0.00-0.02); Immature Granulocytes % (auto) 3.7 %; Lymphocytes # (auto) 1.44 K/uL (1.2-3.4); Lymphocytes % (auto) 25.5 %; Mean Corpuscular Hgb Conc 30.3 g/dL (32-36); Mean Corpuscular Volume 89.7 fL (80-100); Mean Platelet Volume 11.6 fL (7.4-10.4); Monocytes # (auto) 0.57 K/uL (0.11-0.59); Monocytes % (auto) 10.1 %; Neutrophils # (auto) 3.15 K/uL (1.4-6.5); Neutrophils % (auto) 55.8 %; Nucleated RBC # (auto) 0.02 K/uL (0-0); Nucleated RBC % (auto) 0.3 %; Platelet Count 125 K/uL (130-400); RDW Coefficient of Variation 17.2 % (11.5-14.5); RDW Standard Deviation 56.4 fL (36.4-46.3); Red Blood Count 3.68 M/uL (4.2-5.4); White Blood Count 5.65 K/uL (4.8-10.8)
[2018-08-04 07:35] LABS: INR 1.5 (0.9-1.1); Prothrombin Time 14.5 Seconds (9.0-12.0)
[2018-08-04 07:42] LABS: Albumin Level 2.2 gm/dl (3.4-5.0); BUN Creatinine Ratio 19.4 (10-20); Calcium 8.3 mg/dl (8.5-10.1); Creatinine Clr Calc Pharmacy 66.3 ml/min; Est GFR (Non-African American) 62.1; Potassium 3.8 mmol/L (3.5-5.1)
[2018-08-04 07:45] LABS: Albumin Globulin Ratio 0.6 (0.9-2); Bilirubin,Total 0.3 mg/dl (0.2-1); Globulin 3.8 gm/dl (2.5-4.0)
[2018-08-04] MEDS: IPRATROPIUM BROMIDE/ALBUTEROL respimat INH INH SCH ×4 (09:10→21:20)
[2018-08-04] MEDS: FLUTICASONE/SALMETEROL 250/50 (ADVAIR) 14 PUFF/1 INHALER INH SCH ×2 (09:10→21:19)
[2018-08-04] MEDS: NYSTATIN POWDER 15GM BTL EXT SCH ×2 (09:10→21:20)
[2018-08-04] MEDS: MAGNESIUM OXIDE 400 MG TAB PO SCH ×2 (09:11→17:08)
[2018-08-04] MEDS: AMIODARONE 200 MG TAB PO SCH (09:11)
[2018-08-04] MEDS: FUROSEMIDE 20 MG TAB PO SCH (09:11)
[2018-08-04] MEDS: ASPIRIN 81 MG ECTAB PO SCH (09:11)
[2018-08-04] MEDS: FERROUS SULFATE 325 MG TAB PO SCH (09:11)
[2018-08-04] MEDS: INSULIN ASPART 100 UNITS/ML 3 ML PEN SC SCH ×4 (09:14→21:18)
--- NOTE | 2018-08-04 11:36 | Hospitalist Progress Note ---
Date of Service August 04, 2018 Assessment & Plan (1) Pacemaker infection: pacemaker infection likely as source of infection and sepsis Staphylococcus aureus Bacteremia There is a 5 cm fluid collection surrounding the left pacemaker on CT imaging initially on broad-spectrum antibiotics with aztreonam and vancomycin and doxycycline from admission Blood cultures positive for MSSA 08/02/18: pacemaker extraction and ALEXA did not show endocarditis, ID recommending at least 6 weeks of IV antibiotics after first negative blood culture Discussed with case packer and sealer regarding transitioning to possibility of care home facility Paroxysmal A-fib: rate and rhythm control for now with amiodarone 200 mg daily INR 1.5 Continue Coumadin Chronic respiratory failure secondary to COPD Stable acute on chronic diastolic heart failure Continue Lopressor and hydralazine with holding parameters. On aspirin and statin. Bilateral lower extremity Cellulitis already on antibiotics for bacteremia negative urine analysis The leg erythema has generally resolved and what remains are chronic skin disco lorations Type 2 Diabetes mellitus controlled on long term care pharmacist insulin -continue home dose long acting insulin -sliding scale insulin as needed Morbid obesity with BMI 47.3 in adult encourage ambulation PT/OT evaluations Gastroesophageal reflux disease Continue proton pump inhibitors DVT ppx: coumadin resumed on 08/03/18 , continue DVT ppx with SCDs Full Code Disposition Pending Home versus care home facility Subjective Follow-up for bacteremia, pacemaker infection Seen resting in bedside chair, comfortable, States she feels improving Pacemaker removal site still somewhat sore Denies fevers or chills Denies dizziness, chest pain, shortness of breath, nausea vomiting Denies other symptoms Physical Exam Vital Signs (Past 24 Hours): Last Vital Signs Temp 36.6 C 08/04/18 06:51 Pulse 60 08/04/18 06:51 Resp 20 08/04/18 06:51 BP 166/69 H 08/04/18 06:51 Pulse Ox 95 08/04/18 06:51 Physical Exam: General- oriented x 3, not in distress, speaks in sentences with no effort or accessory muscle use Eyes- anicteric Neck- no JVD Lungs- clear breath sounds bilaterally, no rales/wheezes Heart- normal rate, regular rhythm; no murmurs Pacemaker site: Incision site is healing well, no bleeding no discharge, no hematoma Abdomen- normal bowel sounds, nondistended, soft, nontender Extremities-mild lower leg edema, no calf tenderness Neuro- alert, oriented x 3; no gross focal neurologic deficits Skin- warm & dry
--- NOTE | 2018-08-04 12:33 | Infectious Disease Progress Nt ---
Date of Service August 04, 2018 Assessment & Plan (1) Staphylococcus aureus septicemia: will continue current IV abx, follow 08/02 cultures. will need 6 weeks IV abx from first negative culture. pacemaker out. Subjective 08/02 cultures remain negative, toelrating ancef, afebrile. Physical Exam Vital Signs (Past 24 Hours): Last Vital Signs Temp 36.6 C 08/04/18 06:51 Pulse 60 08/04/18 06:51 Resp 20 08/04/18 06:51 BP 166/69 H 08/04/18 06:51 Pulse Ox 95 08/04/18 06:51 Results & Data Laboratory Results Microbiology 08/02/18 13:16 Blood Blood Culture - Preliminary No growth to date. 08/02/18 12:53 Blood Blood Culture - Preliminary No growth to date. 07/30/18 Unknown Chest Gram Stain - Final 07/30/18 Unknown Chest Deep Wound Culture - Final Staphylococcus aureus 07/30/18 07:05 Blood Blood Culture - Final Staphylococcus aureus 07/30/18 01:02 Blood Blood Culture - Final Staphylococcus aureus 07/30/18 00:47 Blood Blood Culture - Final Staphylococcus aureus 07/30/18 06:45 Blood Blood Culture - Preliminary Staphylococcus aureus
--- NOTE | 2018-08-04 14:24 | Cardiology Progress Note ---
Date of Service August 04, 2018 Assessment & Plan (1) Pacemaker infection: Status post pacemaker extraction on IV antibiotics as per ID Recommended 6 weeks worth of IV antibiotics Current discussions in place regarding home with home therapies versus [facility]CF Pacemaker pocket with less drainage (2) Paroxysmal A-fib: Amiodarone reduced to 200 mg/day. Resume warfarin No tachycardia or bradycardia arrhythmias so far (3) Staphylococcus aureus bacteremia: Sepsis picture is improved Subjective Patient seen and examined, chart medications telemetry reviewed, overall looks improved only complaint today tenderness at surgical site no drainage No fevers or chills Telemetry no further arrhythmias or bradycardia Physical Exam Vital Signs (Past 24 Hours): Last Vital Signs Temp 36.5 C 08/04/18 12:00 Pulse 119 H 08/04/18 12:00 Resp 18 08/04/18 12:00 BP 148/80 H 08/04/18 12:00 Pulse Ox 93 08/04/18 12:00 Constitutional: + obese; no acute distress Eyes: PERRL, conjunctivae normal, anicteric sclerae Neck: trachea midline, no thyromegaly + thick neck Respiratory: no audible wheezes Auscultation: + diminished lung sounds (Clear to auscultation) Cardiovascular: Rate/Rhythm: regular rate and regular rhythm Heart Sounds: normal S1 and normal S2; no gallop and no cardiac rub Extremities: + edema (1-2+ lower extremity) Chest (Breasts): Chest: + pacemaker (Prior pacemaker pocket site is minimal drainage iodoform gauze packing still in place with plan change) Gastrointestinal (Abdomen): normal bowel sounds, soft, nontender, no hepatosplenomegaly Skin: Lower extremities appear less ruborous and excoriated Psychiatric: A+Ox3, euthymic affect Results & Data Laboratory Results Laboratory Results - last 24 hr 08/03/18 08/03/18 08/04/18 16:12 20:27 06:58 WBC RBC Hgb Hct MCV MCH MCHC RDW Std Deviation RDW Coeff of Silvana Plt Count MPV Immature Gran % (Auto) Neut % (Auto) Lymph % (Auto) Pratt % (Auto) Eos % (Auto) Baso % (Auto) Immature Gran # (Auto) Neut # (Auto) Lymph # (Auto) Pratt # (Auto) Eos # (Auto) Baso # (Auto) Absolute Nucleated RBC Nucleated RBC % (auto) PT 14.5 H INR 1.5 H Sodium Potassium Chloride Carbon Dioxide Anion Gap BUN Creatinine Est Cr Clr Drug Dosing Est GFR ( Amer) Est GFR (Non-Af Amer) BUN/Creatinine Ratio Glucose POC Glucose 182 H 116 H Calcium Total Bilirubin AST ALT Alkaline Phosphatase Total Protein Albumin Globulin Albumin/Globulin Ratio 08/04/18 08/04/18 08/04/18 06:58 06:58 07:28 WBC 5.65 RBC 3.68 L Hgb 10.0 L Hct 33.0 L MCV 89.7 MCH 27.2 MCHC 30.3 L RDW Std Deviation 56.4 H RDW Coeff of Silvana 17.2 H Plt Count 125 L MPV 11.6 H Immature Gran % (Auto) 3.7 Neut % (Auto) 55.8 Lymph % (Auto) 25.5 Pratt % (Auto) 10.1 Eos % (Auto) 4.2 Baso % (Auto) 0.7 Immature Gran # (Auto) 0.21 H Neut # (Auto) 3.15 Lymph # (Auto) 1.44 Pratt # (Auto) 0.57 Eos # (Auto) 0.24 Baso # (Auto) 0.04 Absolute Nucleated RBC 0.02 H Nucleated RBC % (auto) 0.3 PT INR Sodium 144 Potassium 3.8 Chloride 106 Carbon Dioxide 33 H Anion Gap 5.0 BUN 18 Creatinine 0.90 Est Cr Clr Drug Dosing 66.3 Est GFR ( Amer) 72.0 Est GFR (Non-Af Amer) 62.1 BUN/Creatinine Ratio 19.4 Glucose 72 POC Glucose 79 Calcium 8.3 L Total Bilirubin 0.3 AST 29 ALT 10 L Alkaline Phosphatase 107 Total Protein 6.0 L Albumin 2.2 L Globulin 3.8 Albumin/Globulin Ratio 0.6 L 08/04/18 08/04/18 07:34 11:39 WBC RBC Hgb Hct MCV MCH MCHC RDW Std Deviation RDW Coeff of Silvana Plt Count MPV Immature Gran % (Auto) Neut % (Auto) Lymph % (Auto) Pratt % (Auto) Eos % (Auto) Baso % (Auto) Immature Gran # (Auto) Neut # (Auto) Lymph # (Auto) Pratt # (Auto) Eos # (Auto) Baso # (Auto) Absolute Nucleated RBC Nucleated RBC % (auto) PT INR Sodium Potassium Chloride Carbon Dioxide Anion Gap BUN Creatinine Est Cr Clr Drug Dosing Est GFR ( Amer) Est GFR (Non-Af Amer) BUN/Creatinine Ratio Glucose POC Glucose 80 115 H Calcium Total Bilirubin AST ALT Alkaline Phosphatase Total Protein Albumin Globulin Albumin/Globulin Ratio
[2018-08-04] MEDS: WARFARIN SOD 2.5 MG TAB PO SCH (15:24)
[2018-08-04] MEDS: LISINOPRIL 40 MG TAB PO SCH (17:08)
[2018-08-04] MEDS: INSULIN GLARGINE SOLOSTAR 100 UNITS/ML 3 ML PEN SC SCH (21:19)
[2018-08-04] MEDS: PANTOprazole 40 MG TAB PO SCH (21:19)
[2018-08-04] MEDS: SIMVASTATIN 20 MG TAB PO SCH (21:19)
[2018-08-05] MEDS: CEFAZOLIN 2000MG 2,000 MG/15 ML SYR IV SCH ×3 (01:15→16:58)
[2018-08-05 05:43] LABS: INR 1.9 (0.9-1.1); Prothrombin Time 18.6 Seconds (9.0-12.0)
[2018-08-05] MEDS: INSULIN ASPART 100 UNITS/ML 3 ML PEN SC SCH ×4 (08:35→20:29)
[2018-08-05] MEDS: FLUTICASONE/SALMETEROL 250/50 (ADVAIR) 14 PUFF/1 INHALER INH SCH ×2 (08:35→20:29)
[2018-08-05] MEDS: IPRATROPIUM BROMIDE/ALBUTEROL respimat INH INH SCH ×4 (08:36→20:29)
[2018-08-05] MEDS: NYSTATIN POWDER 15GM BTL EXT SCH ×2 (08:37→20:30)
[2018-08-05] MEDS: AMIODARONE 200 MG TAB PO SCH (08:37)
[2018-08-05] MEDS: FUROSEMIDE 20 MG TAB PO SCH (08:37)
[2018-08-05] MEDS: ASPIRIN 81 MG ECTAB PO SCH (08:37)
[2018-08-05] MEDS: LISINOPRIL 40 MG TAB PO SCH (08:38)
[2018-08-05] MEDS: ACETAMINOPHEN 325 MG TAB PO PRN (10:11)
[2018-08-05] MEDS: FERROUS SULFATE 325 MG TAB PO SCH (11:54)
[2018-08-05] MEDS: MAGNESIUM OXIDE 400 MG TAB PO SCH ×2 (11:55→16:54)
--- NOTE | 2018-08-05 14:25 | Cardiology Progress Note ---
Date of Service August 05, 2018 Assessment & Plan (1) Pacemaker infection: Status post pacemaker extraction on IV antibiotics as per ID Recommended 6 weeks worth of IV antibiotics Suspect will need PICC line placed (2) Paroxysmal A-fib: Amiodarone reduced to 200 mg/day. Resume warfarin No tachycardia or bradycardia arrhythmias so far Will reduce amiodarone further to 100 mg p.o. daily (3) Staphylococcus aureus bacteremia: Clinically and hemodynamically improved Subjective Patient seen and examined, chart medications telemetry reviewed, overall looks i mproved only complaint today minimal tenderness at surgical site no drainage. Anticipates wound packing change later Minimal bradycardia last evening no atrial fibrillar Physical Exam Vital Signs (Past 24 Hours): Last Vital Signs Temp 36.6 C 08/05/18 12:14 Pulse 63 08/05/18 12:14 Resp 18 08/05/18 12:14 BP 105/56 L 08/05/18 12:14 Pulse Ox 95 08/05/18 12:14 Constitutional: + obese; no acute distress Eyes: PERRL, conjunctivae normal, anicteric sclerae Neck: trachea midline, no thyromegaly + thick neck Respiratory: no audible wheezes Auscultation: + diminished lung sounds (Clear to auscultation) Cardiovascular: Rate/Rhythm: regular rate and regular rhythm Heart Sounds: normal S1 and normal S2; no gallop and no cardiac rub Extremities: + edema (1-2+ lower extremity) Chest (Breasts): Chest: + pacemaker (Prior pacemaker pocket site is minimal drainage iodoform gauze packing still in place with plan change) Gastrointestinal (Abdomen): normal bowel sounds, soft, nontender, no hepatosplenomegaly Psychiatric: A+Ox3, euthymic affect Results & Data Laboratory Results Laboratory Results - last 24 hr 08/04/18 08/04/18 08/05/18 16:20 20:24 05:17 PT 18.6 H INR 1.9 H POC Glucose 102 H 131 H 08/05/18 08/05/18 08/05/18 07:50 11:09 12:06 PT INR POC Glucose 95 159 H 116 H
--- NOTE | 2018-08-05 16:24 | Hospitalist Progress Note ---
Date of Service August 05, 2018 Assessment & Plan (1) Pacemaker infection: pacemaker infection likely as source of infection and sepsis Staphylococcus aureus Bacteremia There is a 5 cm fluid collection surrounding the left pacemaker on CT imaging initially on broad-spectrum antibiotics with aztreonam and vancomycin and doxycycline from admission Blood cultures positive for MSSA 08/02/18: pacemaker extraction and ALEXA did not show endocarditis, ID recommending at least 6 weeks of IV antibiotics after first negative blood culture --Discussed with Dr. Feliz from ID, recommend to transition to ceftriaxone 2 g IV daily Will need a PICC line Case management on board, referrals to custodial facilities in progress Paroxysmal A-fib: rate and rhythm control for now with amiodarone 200 mg daily INR 1.9 Continue Coumadin Chronic respiratory failure secondary to COPD Stable acute on chronic diastolic heart failure Continue Lopressor and hydralazine with holding parameters. On aspirin and statin. Bilateral lower extremity Cellulitis already on antibiotics for bacteremia negative urine analysis The leg erythema has generally resolved and what remains are chronic skin discolorations Type 2 Diabetes mellitus controlled on rat exterminator insulin -continue home dose long acting insulin -sliding scale insulin as needed Morbid obesity with BMI 47.3 in adult encourage ambulation PT/OT evaluations Gastroesophageal reflux disease Continue proton pump inhibitors DVT ppx: coumadin resumed on 08/03/18 , continue DVT ppx with SCDs Full Code Disposition Pending Home versus custodial facility Subjective Follow-up for bacteremia, pacemaker site infection Seen resting in bed, nondistressed, comfortable She feels fine overall Still little weak but improving Pacemaker site incision site pain improving Denies shortness of breath, chest pain, dizziness, palpitations No other symptoms Physical Exam Vital Signs (Past 24 Hours): Last Vital Signs Temp 36.4 C L 08/05/18 15:56 Pulse 65 08/05/18 15:56 Resp 18 08/05/18 15:56 BP 128/76 08/05/18 15:56 Pulse Ox 93 08/05/18 15:56 Physical Exam: General- oriented x 3, not in distress, speaks in sentences with no effort or accessory muscle use Eyes- anicteric Neck- no JVD Lungs- clear breath sounds bilaterally, no crackles, no wheezing Heart- normal rate, regular rhythm; no murmurs Pacemaker incision site: No bleeding, no discharge, tenderness Abdomen- normal bowel sounds, nondistended, soft, nontender Extremities- no pretibial edema, no calf tenderness Neuro- alert, oriented x 3; no gross focal neurologic deficits Skin- warm & dry Results & Data Laboratory Results Laboratory Results - last 24 hr 08/04/18 08/05/18 08/05/18 20:24 05:17 07:50 PT 18.6 H INR 1.9 H POC Glucose 131 H 95 08/05/18 08/05/18 08/05/18 11:09 12:06 16:25 PT INR POC Glucose 159 H 116 H 99
[2018-08-05] MEDS: WARFARIN SOD 2.5 MG TAB PO SCH (16:53)
[2018-08-05] MEDS: INSULIN GLARGINE SOLOSTAR 100 UNITS/ML 3 ML PEN SC SCH (20:28)
[2018-08-05] MEDS: PANTOprazole 40 MG TAB PO SCH (20:29)
[2018-08-05] MEDS: SIMVASTATIN 20 MG TAB PO SCH (20:29)
[2018-08-06] MEDS: CEFAZOLIN 2000MG 2,000 MG/15 ML SYR IV SCH ×2 (00:58→08:33)
[2018-08-06 07:14] LABS: INR 2.1 (0.9-1.1); Prothrombin Time 20.1 Seconds (9.0-12.0)
[2018-08-06] MEDS: INSULIN ASPART 100 UNITS/ML 3 ML PEN SC SCH ×4 (08:31→20:38)
[2018-08-06] MEDS: FLUTICASONE/SALMETEROL 250/50 (ADVAIR) 14 PUFF/1 INHALER INH SCH ×2 (08:31→20:42)
[2018-08-06] MEDS: IPRATROPIUM BROMIDE/ALBUTEROL respimat INH INH SCH ×4 (08:32→20:40)
[2018-08-06] MEDS: NYSTATIN POWDER 15GM BTL EXT SCH ×2 (08:35→20:38)
[2018-08-06] MEDS: FUROSEMIDE 20 MG TAB PO SCH (08:35)
[2018-08-06] MEDS: AMIODARONE 200 MG TAB PO SCH (08:35)
[2018-08-06] MEDS: ASPIRIN 81 MG ECTAB PO SCH (08:35)
[2018-08-06] MEDS: LISINOPRIL 40 MG TAB PO SCH (08:36)
[2018-08-06] MEDS: FERROUS SULFATE 325 MG TAB PO SCH (12:23)
[2018-08-06] MEDS: MAGNESIUM OXIDE 400 MG TAB PO SCH ×2 (12:23→16:24)
[2018-08-06] MEDS: cefTRIAXone SODIUM 2,000 MG in DEXTROSE 5% 50 ML IV SCH (16:23)
[2018-08-06] MEDS: WARFARIN SOD 2.5 MG TAB PO SCH (16:23)
--- NOTE | 2018-08-06 18:32 | Hospitalist Progress Note ---
Date of Service August 06, 2018 Assessment & Plan (1) Pacemaker infection: pacemaker infection likely as source of infection and sepsis Staphylococcus aureus Bacteremia There is a 5 cm fluid collection surrounding the left pacemaker on CT imaging initially on broad-spectrum antibiotics with aztreonam and vancomycin and doxycycline from admission Blood cultures positive for MSSA 08/02/18: pacemaker extraction and ALEXA did not show endocarditis, ID recommending at least 6 weeks of IV antibiotics after first negative blood culture --Discussed with Dr. Feliz from ID, recommend to transition to ceftriaxone 2 g IV daily Will need a PICC line Case management on board, referrals to [facility] facilities in progress --Increased drainage from pacemaker site today Repeat blood cultures drawn Discussed with Dr. Purvis, recommend to change packing basal saturation, discussed with RN, to change packing more frequently Paroxysmal A-fib: rate and rhythm control for now with amiodarone 200 mg daily INR 2.1 Continue Coumadin Chronic respiratory failure secondary to COPD Stable acute on chronic diastolic heart failure Continue Lopressor and hydralazine with holding parameters. On aspirin and statin. Bilateral lower extremity Cellulitis already on antibiotics for bacteremia negative urine analysis The leg erythema has generally resolved and what remains are chronic skin discolorations Type 2 Diabetes mellitus controlled on fdc insulin -continue home dose long acting insulin -sliding scale insulin as needed Morbid obesity with BMI 47.3 in adult encourage ambulation PT/OT evaluations Gastroesophageal reflux disease Continue proton pump inhibitors DVT ppx: coumadin resumed on 08/03/18 , continue DVT ppx with SCDs Full Code Disposition Pending Home versus [facility] facility Subjective Follow-up for bacteremia, pacemaker infection Increased discharge and patient's packing Seen resting in bed, comfortable, not in distress States she feels fine overall Pain over the pacemaker site is improving actually Denies fever chills Denies palpitations, dizziness, weakness, chest pain, dyspnea No other complaints Physical Exam Vital Signs (Past 24 Hours): Last Vital Signs Temp 36.7 C 08/06/18 15:26 Pulse 64 08/06/18 15:26 Resp 16 08/06/18 15:26 BP 159/54 H 08/06/18 15:26 Pulse Ox 95 08/06/18 15:26 Physical Exam: General- oriented x 3, not in distress, speaks in sentences with no effort or accessory muscle use Eyes- anicteric Neck- no JVD Lungs- clear breath sounds bilaterally, no rales/wheezes Heart- normal rate, regular rhythm; no murmurs Pacemaker site: Incision healing well No erythema, edema improving, no tenderness Packing removed, positive pink discharge, no foul-smelling Abdomen- normal bowel sounds, nondistended, soft, nontender Extremities- no pretibial edema, no calf tenderness Neuro- alert, oriented x 3; no gross focal neurologic deficits Skin- warm & dry Results & Data Laboratory Results Laboratory Results - last 24 hr 08/05/18 08/06/18 08/06/18 20:17 06:43 07:37 PT 20.1 H INR 2.1 H POC Glucose 132 H 100 H 08/06/18 08/06/18 11:21 16:01 PT INR POC Glucose 149 H 94
[2018-08-06] MEDS: PANTOprazole 40 MG TAB PO SCH (20:39)
[2018-08-06] MEDS: SIMVASTATIN 20 MG TAB PO SCH (20:40)
[2018-08-06] MEDS: INSULIN GLARGINE SOLOSTAR 100 UNITS/ML 3 ML PEN SC SCH (20:41)
[2018-08-07 07:23] LABS: INR 2.7 (0.9-1.1); Prothrombin Time 25.5 Seconds (9.0-12.0)
[2018-08-07] MEDS: INSULIN ASPART 100 UNITS/ML 3 ML PEN SC SCH ×4 (08:45→21:40)
[2018-08-07] MEDS: FLUTICASONE/SALMETEROL 250/50 (ADVAIR) 14 PUFF/1 INHALER INH SCH ×2 (08:46→21:36)
[2018-08-07] MEDS: IPRATROPIUM BROMIDE/ALBUTEROL respimat INH INH SCH ×4 (08:46→21:36)
[2018-08-07] MEDS: AMIODARONE 200 MG TAB PO SCH (08:47)
[2018-08-07] MEDS: FUROSEMIDE 20 MG TAB PO SCH (08:48)
[2018-08-07] MEDS: ASPIRIN 81 MG ECTAB PO SCH (08:48)
[2018-08-07] MEDS: NYSTATIN POWDER 15GM BTL EXT SCH ×2 (08:48→21:38)
[2018-08-07] MEDS: LISINOPRIL 40 MG TAB PO SCH (08:49)
[2018-08-07] MEDS: MAGNESIUM OXIDE 400 MG TAB PO SCH ×2 (12:14→16:28)
[2018-08-07] MEDS: FERROUS SULFATE 325 MG TAB PO SCH (12:14)
[2018-08-07] MEDS: WARFARIN SOD 2.5 MG TAB PO SCH (16:26)
[2018-08-07] MEDS: cefTRIAXone SODIUM 2,000 MG in DEXTROSE 5% 50 ML IV SCH (16:30)
[2018-08-07] MEDS: INSULIN GLARGINE SOLOSTAR 100 UNITS/ML 3 ML PEN SC SCH (21:37)
[2018-08-07] MEDS: PANTOprazole 40 MG TAB PO SCH (21:38)
[2018-08-07] MEDS: SIMVASTATIN 20 MG TAB PO SCH (21:38)
--- NOTE | 2018-08-08 07:26 | Hospitalist Progress Note ---
Date of Service August 08, 2018 delayed entry date of service 08/07/18 Assessment & Plan (1) Pacemaker infection: pacemaker infection likely as source of infection and sepsis Staphylococcus aureus Bacteremia There is a 5 cm fluid collection surrounding the left pacemaker on CT imaging initially on broad-spectrum antibiotics with aztreonam and vancomycin and doxycycline from admission Blood cultures positive for MSSA 08/02/18: pacemaker extraction and ALEXA did not show endocarditis, ID recommending at least 6 weeks of IV antibiotics after first negative blood culture --Discussed with Dr. Feliz from ID, recommend to transition to ceftriaxone 2 g IV daily PICC line ordered Case management on board, referrals to [facility] facilities in progress -- Repeat blood cultures drawn: negative Discussed with Dr. Purvis, recommend to change packing basal saturation, discussed with RN, to change packing more frequently Paroxysmal A-fib: rate and rhythm control for now with amiodarone 200 mg daily Continue Coumadin Chronic respiratory failure secondary to COPD Stable acute on chronic diastolic heart failure Continue Lopressor and hydralazine with holding parameters. On aspirin and statin. Bilateral lower extremity Cellulitis already on antibiotics for bacteremia negative urine analysis The leg erythema has generally resolved and what remains are chronic skin discolorations Type 2 Diabetes mellitus controlled on flour tester insulin -continue home dose long acting insulin -sliding scale insulin as needed Morbid obesity with BMI 47.3 in adult encourage ambulation PT/OT evaluations Gastroesophageal reflux disease Continue proton pump inhibitors DVT ppx: coumadin resumed on 08/03/18 , continue DVT ppx with SCDs Full Code Disposition Pending Home versus snf facility Subjective ff up bacteremia, pm infection seen resting in bed, comfortable states she feels fine overall PM site pain improving no fever/chills no other symptoms Physical Exam Vital Signs (Past 24 Hours): Last Vital Signs Temp 36.4 C L 08/08/18 07:06 Pulse 64 08/08/18 07:06 Resp 17 08/08/18 07:06 BP 134/74 08/08/18 07:06 Pulse Ox 97 08/08/18 07:06 Physical Exam: General- oriented x 3, not in distress, speaks in sentences with no effort or accessory muscle use Eyes- anicteric Neck- no JVD Lungs- clear breath sounds bilaterally Heart- normal rate, regular rhythm; no murmurs pacemaker site: wound healing well, no erythema or any other signs of infection Abdomen- normal bowel sounds, nondistended, soft, nontender Extremities- no pretibial edema, no calf tenderness Neuro- alert, oriented x 3; no gross focal neurologic deficits Skin- warm & dry
[2018-08-08 08:03] LABS: INR 2.9 (0.9-1.1); Prothrombin Time 27.7 Seconds (9.0-12.0)
[2018-08-08] MEDS: INSULIN ASPART 100 UNITS/ML 3 ML PEN SC SCH ×4 (08:20→20:50)
[2018-08-08] MEDS: FLUTICASONE/SALMETEROL 250/50 (ADVAIR) 14 PUFF/1 INHALER INH SCH ×2 (08:21→20:06)
[2018-08-08] MEDS: ASPIRIN 81 MG ECTAB PO SCH (08:22)
[2018-08-08] MEDS: AMIODARONE 200 MG TAB PO SCH (08:24)
[2018-08-08] MEDS: FUROSEMIDE 20 MG TAB PO SCH (08:25)
[2018-08-08] MEDS: IPRATROPIUM BROMIDE/ALBUTEROL respimat INH INH SCH ×4 (08:25→20:05)
[2018-08-08] MEDS: NYSTATIN POWDER 15GM BTL EXT SCH ×2 (08:26→20:06)
[2018-08-08] MEDS: LISINOPRIL 40 MG TAB PO SCH (08:26)
[2018-08-08] MEDS: MAGNESIUM OXIDE 400 MG TAB PO SCH ×2 (12:18→17:25)
[2018-08-08] MEDS: FERROUS SULFATE 325 MG TAB PO SCH (12:18)
--- NOTE | 2018-08-08 14:31 | XRay Report ---
SINGLE VIEW CHEST CLINICAL HISTORY: PICC placement. FINDINGS: An AP, portable, upright chest radiograph is compared to chest x-ray and chest CT dated 07/30. The examination is degraded by portable technique and patient rotation. A right PICC line has been placed. The tip of the catheter projects over the SVC. The heart is enlarged and there is ather osclerotic calcification of the thoracic aorta. There is mild pulmonary vascular congestion. Chronic interstitial thickening is similar to previous. No airspace consolidation or large pleural effusion i s identified. There is bibasilar atelectasis. No pneumothorax is seen. The skeletal structures are os teopenic. The bony thorax is grossly intact. IMPRESSION: 1. A right PICC line has been placed. The tip projects over the SVC. 2. Cardiomegaly with mild pulmonary vascular congestion. Electronically signed by: Reed Chapman M.D. 08/08/2018 2:29 PM
[2018-08-08] MEDS: cefTRIAXone SODIUM 2,000 MG in DEXTROSE 5% 50 ML IV SCH (15:48)
[2018-08-08] MEDS: WARFARIN SOD 2 MG TAB PO SCH (15:48)
[2018-08-08] MEDS: SIMVASTATIN 20 MG TAB PO SCH (20:50)
[2018-08-08] MEDS: PANTOprazole 40 MG TAB PO SCH (20:50)
[2018-08-08] MEDS: INSULIN GLARGINE SOLOSTAR 100 UNITS/ML 3 ML PEN SC SCH (20:50)
--- NOTE | 2018-08-08 23:49 | Hospitalist Progress Note ---
Date of Service August 08, 2018 Assessment & Plan (1) Pacemaker infection: pacemaker infection likely as source of infection and sepsis Staphylococcus aureus Bacteremia There is a 5 cm fluid collection surrounding the left pacemaker on CT imaging initially on broad-spectrum antibiotics with aztreonam and vancomycin and doxycycline from admission Blood cultures positive for MSSA 08/02/18: pacemaker extraction and ALEXA did not show endocarditis, ID recommending at least 6 weeks of IV antibiotics after first negative blood culture --Discussed with Dr. Feliz from ID, recommend to transition to ceftriaxone 2 g IV daily PICC line ordered Case management on board, referrals to [facility] facilities in progress --wound healing well Repeat blood cultures drawn: negative Discussed with Dr. Purvis, recommend to change packing basal saturation, discussed with RN, to change packing more frequently Paroxysmal A-fib: rate and rhythm control for now with amiodarone 200 mg daily Continue Coumadin Chronic respiratory failure secondary to COPD Stable acute on chronic diastolic heart failure Continue Lopressor and hydralazine with holding parameters. On aspirin and statin. Bilateral lower extremity Cellulitis already on antibiotics for bacteremia negative urine analysis The leg erythema has generally resolved and what remains are chronic skin discolorations Type 2 Diabetes mellitus controlled on jail insulin -continue home dose long acting insulin -sliding scale insulin as needed Morbid obesity with BMI 47.3 in adult encourage ambulation PT/OT evaluations Gastroesophageal reflux disease Continue proton pump inhibitors DVT ppx: coumadin resumed on 08/03/18 , continue DVT ppx with SCDs Full Code Disposition Pending Home versus [facility] facility Subjective Follow-up for bacteremia, pacemaker infection resting comfortably PM sit pain continues to improve denies chest pain , dyspnea no other symptoms Physical Exam Vital Signs (Past 24 Hours): Last Vital Signs Temp 36.4 C L 08/08/18 23:03 Pulse 63 08/08/18 23:03 Resp 18 08/08/18 23:03 BP 151/61 H 08/08/18 23:03 Pulse Ox 95 08/08/18 23:03 Physical Exam: General- oriented x 3, not in distress, speaks in sentences with no effort or accessory muscle use Eyes- anicteric Neck- no JVD Lungs- clear BS BL Heart- normal rate, regular rhythm; no murmurs PM site: wound healing well, no signs of infection Abdomen- normal bowel sounds, nondistended, soft, nontender Extremities- no pretibial edema, no calf tenderness Neuro- alert, oriented x 3; no gross focal neurologic deficits Skin- warm & dry Results & Data Laboratory Results Laboratory Results - last 24 hr 08/08/18 08/08/18 08/08/18 07:22 07:30 11:19 PT 27.7 H INR 2.9 H POC Glucose 86 120 H 08/08/18 08/08/18 16:14 20:17 PT INR POC Glucose 100 H 114 H
[2018-08-09] MEDS: IPRATROPIUM BROMIDE/ALBUTEROL respimat INH INH SCH ×4 (09:37→21:06)
[2018-08-09] MEDS: FLUTICASONE/SALMETEROL 250/50 (ADVAIR) 14 PUFF/1 INHALER INH SCH ×2 (09:37→21:02)
[2018-08-09] MEDS: FUROSEMIDE 20 MG TAB PO SCH (09:38)
[2018-08-09] MEDS: INSULIN ASPART 100 UNITS/ML 3 ML PEN SC SCH ×4 (09:38→21:07)
[2018-08-09] MEDS: LISINOPRIL 40 MG TAB PO SCH (09:38)
[2018-08-09] MEDS: ASPIRIN 81 MG ECTAB PO SCH (09:38)
[2018-08-09] MEDS: NYSTATIN POWDER 15GM BTL EXT SCH ×2 (09:38→21:05)
[2018-08-09] MEDS: FERROUS SULFATE 325 MG TAB PO SCH (09:39)
[2018-08-09] MEDS: MAGNESIUM OXIDE 400 MG TAB PO SCH ×2 (09:39→16:53)
[2018-08-09] MEDS: AMIODARONE 200 MG TAB PO SCH (10:06)
[2018-08-09] MEDS: cefTRIAXone SODIUM 2,000 MG in DEXTROSE 5% 50 ML IV SCH (17:38)
[2018-08-09 17:41] LABS: INR 3.1 (0.9-1.1); Prothrombin Time 29.7 Seconds (9.0-12.0)
[2018-08-09] MEDS: WARFARIN SOD 2 MG TAB PO SCH (17:47)
[2018-08-09] MEDS: PANTOprazole 40 MG TAB PO SCH (21:03)
[2018-08-09] MEDS: SIMVASTATIN 20 MG TAB PO SCH (21:03)
[2018-08-09] MEDS: INSULIN GLARGINE SOLOSTAR 100 UNITS/ML 3 ML PEN SC SCH (21:06)
[2018-08-10] MEDS: ACETAMINOPHEN 325 MG TAB PO PRN (00:09)
[2018-08-10] MEDS: FUROSEMIDE 20 MG TAB PO SCH (08:12)
[2018-08-10] MEDS: LISINOPRIL 40 MG TAB PO SCH (08:12)
[2018-08-10] MEDS: ASPIRIN 81 MG ECTAB PO SCH (08:12)
[2018-08-10] MEDS: IPRATROPIUM BROMIDE/ALBUTEROL respimat INH INH SCH ×4 (08:13→20:47)
[2018-08-10] MEDS: FLUTICASONE/SALMETEROL 250/50 (ADVAIR) 14 PUFF/1 INHALER INH SCH ×2 (08:13→20:46)
[2018-08-10] MEDS: NYSTATIN POWDER 15GM BTL EXT SCH ×2 (08:13→20:46)
[2018-08-10] MEDS: INSULIN ASPART 100 UNITS/ML 3 ML PEN SC SCH ×4 (09:00→20:49)
[2018-08-10] MEDS: MAGNESIUM OXIDE 400 MG TAB PO SCH ×2 (10:58→16:28)
[2018-08-10] MEDS: FERROUS SULFATE 325 MG TAB PO SCH (10:58)
--- NOTE | 2018-08-10 11:37 | Hospitalist Progress Note ---
Date of Service August 10, 2018 delayed entry date of service 08/09/18 Assessment & Plan (1) Pacemaker infection: pacemaker infection likely as source of infection and sepsis Staphylococcus aureus Bacteremia There is a 5 cm fluid collection surrounding the left pacemaker on CT imaging initially on broad-spectrum antibiotics with aztreonam and vancomycin and doxycycline from admission Blood cultures positive for MSSA 08/02/18: pacemaker extraction and ALEXA did not show endocarditis, ID recommending at least 6 weeks of IV antibiotics after first negative blood culture --Discussed with Dr. Feliz from ID, recommend to transition to ceftriaxone 2 g IV daily PICC line ordered --wound healing well since Repeat blood cultures drawn: negative Paroxysmal A-fib: on Amiodarone coumadin held for INR > 3 Chronic respiratory failure secondary to COPD Stable acute on chronic diastolic heart failure Continue Lopressor and hydralazine with holding parameters. On aspirin and statin. Bilateral lower extremity Cellulitis already on antibiotics for bacteremia negative urine analysis The leg erythema has generally resolved and what remains are chronic skin discolorations Type 2 Diabetes mellitus controlled on custodial insulin -continue home dose long acting insulin -sliding scale insulin as needed Morbid obesity with BMI 47.3 in adult encourage ambulation PT/OT evaluations Gastroesophageal reflux disease Continue proton pump inhibitors DVT ppx: INR > 3 coumadin held Full Code Disposition d/c to SNF when cleared by Life Manager Subjective Follow-up for bacteremia, pacemaker infection resting in bed, comfortable states she feels fine overall no pain on the PM site no fevers/chills no dizziness, chest pain, dyspnea denies other symptoms Physical Exam Vital Signs (Past 24 Hours): Last Vital Signs Temp 36.8 C 08/10/18 07:44 Pulse 67 08/10/18 07:44 Resp 23 08/10/18 07:44 BP 172/71 H 08/10/18 07:44 Pulse Ox 96 08/10/18 07:44 Physical Exam: General- oriented x 2, not in distress, speaks in sentences with no effort or accessory muscle use Eyes- anicteric Neck- no JVD Lungs- clear breath sounds bilaterally, no rales/wheezes Heart- normal rate, regular rhythm; no murmurs Abdomen- normal bowel sounds, nondistended, soft, nontender Extremities- no pretibial edema, no calf tenderness Neuro- alert, oriented x 3; no gross focal neurologic deficits Skin- warm & dry
[2018-08-10 12:07] LABS: INR 3.2 (0.9-1.1); Prothrombin Time 30.6 Seconds (9.0-12.0)
--- NOTE | 2018-08-10 12:17 | Hospitalist Progress Note ---
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 Feliz from ID, recommend to transition to ceftriaxone 2 g IV daily PICC line ordered --wound healing well since Repeat blood cultures drawn: negative -- continue IV Ceftriaxone x 6 weeks from first negative blood culture Paroxysmal A-fibrillation Amiodarone held for bradycardia coumadin held for INR > 3 EP to be reconsulted Chronic respiratory failure secondary to COPD Stable acute on chronic diastolic heart failure Continue Lopressor and hydralazine with holding parameters. On aspirin and statin. Bilateral lower extremity Cellulitis erythema likely from chronic lymphedema Type 2 Diabetes mellitus controlled on superintendent terminal insulin -continue home dose long acting insulin -sliding scale insulin as needed Morbid obesity with BMI 47.3 in adult encourage ambulation PT/OT evaluations Gastroesophageal reflux disease Continue proton pump inhibitors DVT ppx: INR > 3 coumadin held Full Code Disposition d/c to SNF when cleared by Feed Weigher Subjective Follow-up for bacteremia, pacemaker infection sitting in bedside chair, comfortable reports episodes of lightheadedness denies chest pain, dyspnea, palpitations HR noted to be in the 30s this AM denies pain over PM site no other symptoms Physical Exam Vital Signs (Past 24 Hours): Last Vital Signs Temp 36.6 C 08/10/18 11:45 Pulse 64 08/10/18 11:45 Resp 16 08/10/18 11:45 BP 144/70 H 08/10/18 11:45 Pulse Ox 92 08/10/18 11:45 Physical Exam: General- oriented x 3, not in distress, speaks in sentences with no effort or accessory muscle use Eyes- anicteric Neck- no JVD Lungs- clear BS BL Heart- normal rate, regular rhythm; no murmurs PM site: no signs of infection noted Abdomen- normal bowel sounds, nondistended, soft, nontender Extremities- trace pretibial edema, no calf tenderness Neuro- alert, oriented x 3; no gross focal neurologic deficits Skin- warm & dry Results & Data Laboratory Results Laboratory Results - last 24 hr 08/09/18 08/09/18 08/09/18 16:19 17:12 20:14 PT 29.7 H INR 3.1 H POC Glucose 94 150 H 08/10/18 08/10/18 08/10/18 07:58 11:37 11:53 PT 30.6 H INR 3.2 H POC Glucose 93 110 H
[2018-08-10 12:56] LABS: Calcium 8.7 mg/dl (8.5-10.1); Creatinine Clr Calc Pharmacy 59.7 ml/min; Est GFR (African American) 63.4; Est GFR (Non-African American) 54.7; Potassium 4.1 mmol/L (3.5-5.1)
[2018-08-10] MEDS: cefTRIAXone SODIUM 2,000 MG in DEXTROSE 5% 50 ML IV SCH (16:27)
--- NOTE | 2018-08-10 17:02 | Cardiology Progress Note ---
Date of Service August 10, 2018 Subjective Pt getting IV abx and packing is being changed daily from her old pacemaker site-as per nursing there is still some drainage. Pt has rare dizziness-nothing like before the pacemaker She is having some slower heart rates-typically only when sleeping She ambulated the halls today only with her usual SOB She is maintaining SR Physical Exam Vital Signs (Past 24 Hours): Last Vital Signs Temp 36.3 C L 08/10/18 15:49 Pulse 76 08/10/18 16:00 Resp 19 08/10/18 15:49 BP 174/62 H 08/10/18 15:49 Pulse Ox 95 08/10/18 15:49 aaox3, NAD, sitting up in chair about to eat dinner; at the side NC/AT, EOMI Supple No JVD Nrl S1/S2, No murmur CTA b/l no w/r/r soft nt/nd b/l LE swelling with venous skin changes no focal deficits left pectoral incision packing still in place-dry but was just changed right brachial PICC line noted
[2018-08-10] MEDS: AMIODARONE 200 MG TAB PO SCH (17:48)
[2018-08-10] MEDS: SIMVASTATIN 20 MG TAB PO SCH (20:48)
[2018-08-10] MEDS: PANTOprazole 40 MG TAB PO SCH (20:48)
[2018-08-10] MEDS: INSULIN GLARGINE SOLOSTAR 100 UNITS/ML 3 ML PEN SC SCH (20:49)
[2018-08-11 06:50] LABS: INR 2.9 (0.9-1.1); Prothrombin Time 27.7 Seconds (9.0-12.0)
[2018-08-11] MEDS: FLUTICASONE/SALMETEROL 250/50 (ADVAIR) 14 PUFF/1 INHALER INH SCH ×2 (08:09→20:29)
[2018-08-11] MEDS: LISINOPRIL 40 MG TAB PO SCH (08:09)
[2018-08-11] MEDS: ASPIRIN 81 MG ECTAB PO SCH (08:09)
[2018-08-11] MEDS: IPRATROPIUM BROMIDE/ALBUTEROL respimat INH INH SCH ×4 (08:10→20:29)
[2018-08-11] MEDS: AMIODARONE 200 MG TAB PO SCH (08:10)
[2018-08-11] MEDS: FUROSEMIDE 20 MG TAB PO SCH (08:14)
[2018-08-11] MEDS: NYSTATIN POWDER 15GM BTL EXT SCH ×2 (08:15→20:29)
[2018-08-11] MEDS: INSULIN ASPART 100 UNITS/ML 3 ML PEN SC SCH ×4 (09:11→20:38)
[2018-08-11] MEDS: FERROUS SULFATE 325 MG TAB PO SCH (11:14)
[2018-08-11] MEDS: MAGNESIUM OXIDE 400 MG TAB PO SCH ×2 (11:14→17:53)
[2018-08-11] MEDS: cefTRIAXone SODIUM 2,000 MG in DEXTROSE 5% 50 ML IV SCH (15:40)
[2018-08-11] MEDS ORDERED: WARFARIN SOD 2 MG TAB PO SCH (16:00)
--- NOTE | 2018-08-11 17:14 | Hospitalist Progress Note ---
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 as source of infection and sepsis Staphylococcus aureus Bacteremia There was a 5 cm fluid collection surrounding the left pacemaker on CT imaging initially on broad-spectrum antibiotics with aztreonam and vancomycin and doxycycline; and then cefazolin from admission Blood cultures positive for MSSA 08/02/18: pacemaker extraction and ALEXA did not show endocarditis 08/02/18 blood culture drawn after blood cultures with no growth by 08/06/18, patient was transitioned from cefazolin to ceftriaxone 2 grams daily and expected to have via the PICC line IV antibiotics for 6 weeks from the 08/02/18 blood culture results which would mean that the last day of IV Ceftriaxone is September 13, 2018 Paroxysmal A-fibrillation Amiodarone resumed as 100 mg as per gallery host coumadin resumed as INR at goal between 2 to 3 patient being monitored closely because of previous concerns for bradycardia after pacemaker placement but current heart rate is stable and when patient reports symptoms of feeling lightheaded, there has not been abnormal heart rates or blood pressures to date Chronic respiratory failure secondary to COPD Stable acute on chronic diastolic heart failure Continue Lopressor and hydralazine with holding parameters. On aspirin and statin. Bilateral lower extremity Cellulitis has resolved Type 2 Diabetes mellitus controlled on fpc insulin -continue home dose long acting insulin -sliding scale insulin as needed Morbid obesity with BMI 46.4 in adult encourage ambulation PT/OT evaluations Gastroesophageal reflux disease Continue proton pump inhibitors DVT ppx: coumadin resumed as INR at goal between 2 to 3 Full Code Subjective Patient on medical johns. Patient reports at time she feels lightheaded but when vitals are checked there have been No episode of bradycardia or No hypotension while on medical johns. patient is ambulatory. Patient denies chest pain. Patient breathing comfortably on room air Physical Exam Vital Signs (Past 24 Hours): Last Vital Signs Temp 36.7 C 08/11/18 15:06 Pulse 67 08/11/18 15:06 Resp 16 08/11/18 15:06 BP 142/69 H 08/11/18 15:06 Pulse Ox 92 08/11/18 10:48 Constitutional: + obese Eyes: PERRL, conjunctivae normal, anicteric sclerae EOM intact bilaterally ENMT: external ear and nose normal, oropharynx normal Respiratory: normal respiratory effort, lungs clear to auscultation Cardiovascular: Rate/Rhythm: regular rhythm and + bradycardic Chest (Breasts): Chest: + pacemaker Gastrointestinal (Abdomen): normal bowel sounds, soft, nontender, no hepatosplenomegaly Musculoskeletal: Head/Neck/Chest: normocephalic and head atraumatic Neurologic: PERRL, EOMI, accommodation nl, no face palsy, no dysarthria CN's II-XI intact bilaterally Psychiatric: A+Ox3, euthymic affect
--- NOTE | 2018-08-11 19:56 | Infectious Disease Progress Nt ---
Date of Service August 11, 2018 Assessment & Plan (1) Staphylococcus aureus septicemia: Staph aureus sepsis pacemaker infection status post pacemaker. Patient now on IV ceftriaxone, tolerating well, will complete 6 weeks of IV antibiotics. Will follow. (2) Pacemaker infection: Subjective Patient seen in follow-up for infection of pacemaker pocket with bacteremia. Tolerating antibiotics without apparent difficulty. Follow-up blood cultures remain negative. Review of Systems All systems reviewed & are unremarkable except as noted in HPI & below Physical Exam Vital Signs (Past 24 Hours): Last Vital Signs Temp 36.7 C 08/11/18 15:06 Pulse 67 08/11/18 15:06 Resp 16 08/11/18 15:06 BP 142/69 H 08/11/18 15:06 Pulse Ox 92 08/11/18 10:48 Constitutional: WD/WN, vitals as above comfortable; no acute distress Eyes: PERRL, conjunctivae normal, anicteric sclerae ENMT: external ear and nose normal, oropharynx normal Neck: trachea midline, no thyromegaly neck nontender Respiratory: normal respiratory effort, lungs clear to auscultation normal percussion; no respiratory distress Cardiovascular: Rate/Rhythm: regular rate and regular rhythm Heart Sounds: normal S1 and normal S2; no gallop, no murmur and no cardiac rub Gastrointestinal (Abdomen): normal bowel sounds, soft, nontender, no hepatosplenomegaly Musculoskeletal: no cyanosis or clubbing, extremities motor strength 5/5 No spinal tenderness, no joint swelling or erythema Skin: no rashes, warm and dry no lesions Neurologic: moves all extremities and awake; no focal motor deficits Motor/Sensory: no sensory deficit Psychiatric: A+Ox3, euthymic affect Lymphatic: no cervical or axillary lymphadenopathy no inguinal lymphadenopathy Results & Data Laboratory Results Laboratory Results - last 48 hr 08/09/18 08/10/18 08/10/18 20:14 07:58 11:37 PT 30.6 H INR 3.2 H Sodium Potassium Chloride Carbon Dioxide Anion Gap BUN Creatinine Est Cr Clr Drug Dosing Est GFR ( Amer) Est GFR (Non-Af Amer) BUN/Creatinine Ratio Glucose POC Glucose 150 H 93 Calcium 08/10/18 08/10/18 08/10/18 11:50 11:53 16:34 PT INR Sodium 142 Potassium 4.1 Chloride 106 Carbon Dioxide 32 Anion Gap 4.0 BUN 23 H Creatinine 1.00 Est Cr Clr Drug Dosing 59.7 Est GFR ( Amer) 63.4 Est GFR (Non-Af Amer) 54.7 BUN/Creatinine Ratio 23.0 H Glucose 96 POC Glucose 110 H 75 Calcium 8.7 08/10/18 08/11/18 08/11/18 20:21 05:47 07:26 PT 27.7 H INR 2.9 H Sodium Potassium Chloride Carbon Dioxide Anion Gap BUN Creatinine Est Cr Clr Drug Dosing Est GFR ( Amer) Est GFR (Non-Af Amer) BUN/Creatinine Ratio Glucose POC Glucose 123 H 87 Calcium 08/11/18 08/11/18 11:09 16:56 PT INR Sodium Potassium Chloride Carbon Dioxide Anion Gap BUN Creatinine Est Cr Clr Drug Dosing Est GFR ( Amer) Est GFR (Non-Af Amer) BUN/Creatinine Ratio Glucose POC Glucose 117 H 77 Calcium Diagnostic Findings Microbiology 08/06/18 15:40 Chest Gram Stain - Final 08/06/18 15:40 Chest Deep Wound Culture - Final No growth 08/02/18 13:16 Blood Blood Culture - Final No growth 08/02/18 12:53 Blood Blood Culture - Final No growth 07/30/18 06:45 Blood Blood Culture - Final Staphylococcus aureus 07/30/18 Unknown Chest Gram Stain - Final 07/30/18 Unknown Chest Deep Wound Culture - Final Staphylococcus aureus 07/30/18 07:05 Blood Blood Culture - Final Staphylococcus aureus 07/30/18 01:02 Blood Blood Culture - Final Staphylococcus aureus 07/30/18 00:47 Blood Blood Culture - Final Staphylococcus aureus
[2018-08-11] MEDS: PANTOprazole 40 MG TAB PO SCH (20:27)
[2018-08-11] MEDS: SIMVASTATIN 20 MG TAB PO SCH (20:28)
[2018-08-11] MEDS: INSULIN GLARGINE SOLOSTAR 100 UNITS/ML 3 ML PEN SC SCH (20:39)
[2018-08-12 06:02] LABS: INR 2.7 (0.9-1.1); Prothrombin Time 25.8 Seconds (9.0-12.0)
[2018-08-12] MEDS: FLUTICASONE/SALMETEROL 250/50 (ADVAIR) 14 PUFF/1 INHALER INH SCH (07:43)
[2018-08-12] MEDS: AMIODARONE 200 MG TAB PO SCH (07:44)
[2018-08-12] MEDS: FUROSEMIDE 20 MG TAB PO SCH (07:44)
[2018-08-12] MEDS: FERROUS SULFATE 325 MG TAB PO SCH (07:45)
[2018-08-12] MEDS: LISINOPRIL 40 MG TAB PO SCH (07:45)
[2018-08-12] MEDS: MAGNESIUM OXIDE 400 MG TAB PO SCH (07:45)
[2018-08-12] MEDS: ASPIRIN 81 MG ECTAB PO SCH (07:45)
[2018-08-12] MEDS: NYSTATIN POWDER 15GM BTL EXT SCH (07:46)
[2018-08-12] MEDS: IPRATROPIUM BROMIDE/ALBUTEROL respimat INH INH SCH ×2 (07:46→13:06)
[2018-08-12 07:57] VITALS: TEMP 97.5; O2SAT 99
[2018-08-12] MEDS: INSULIN ASPART 100 UNITS/ML 3 ML PEN SC SCH ×2 (08:52→13:06)
[2018-08-12 09:37] VITALS: BP 157/63; PULSE 67
--- NOTE | 2018-08-12 12:28 | Hospitalist Progress Note ---
Date of Service August 12, 2018 Assessment & Plan (1) Pacemaker infection: pacemaker infection as source of infection and sepsis; pacemaker extracted, Staphylococcus aureus Bacteremia, There was a 5 cm fluid collection surrounding the left pacemaker on CT imaging initially on broad-spectrum antibiotics with aztreonam and vancomycin and doxycycline; and then cefazolin from admission Blood cultures positive for MSSA 08/02/18: pacemaker extraction and ALEXA did not show endocarditis 08/02/18 blood culture drawn after blood cultures with no growth by 08/06/18, patient was transitioned from cefazolin to ceftriaxone 2 grams daily and expected to have via the PICC line IV antibiotics for 6 weeks from the 08/02/18 blood culture results which would mean that the last day of IV Ceftriaxone is September 13, 2018 Patient is to be discharged to [facility] for physical rehabilitation Patient is to discharged with the PICC line IV antibiotic for 6 weeks from the 08/02/18 blood culture results which would mean that the last day of IV Ceftriaxone 2 gram daily is September 13, 2018 Paroxysmal A-fibrillation patient was being monitored closely because of previous concerns for bradycardia after pacemaker removal but current heart rate is stable and when patient reports symptoms of feeling lightheaded, there has not been abnormal heart rates or blood pressures to date Amiodarone resumed as 100 mg as per rib cutter, continue amiodarone, no beta blockers on discharge coumadin daily and INR at goal between 2 to 3 Patient has follow ups with primary care doctor, INR check, and cardiology appointments to re-discuss when to place a new pacemaker Patient should have INR check 3 days from hospital discharge because she is on coumadin and amiodarone Chronic respiratory failure secondary to COPD Stable acute on chronic diastolic heart failure is now stable On aspirin and statin hydralazine, lisinopril, and Lasix Bilateral lower extremity Cellulitis has resolved Type 2 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 mellitus controlled on exterminator helper termite insulin -continue home dose long acting insulin -sliding scale insulin as needed Morbid obesity with BMI 46.4 in adult encourage ambulation PT/OT evaluations completed Gastroesophageal reflux disease Continue proton pump inhibitors DVT ppx: coumadin resumed as INR at goal between 2 to 3 Full Code Discharge Diagnosis pacemaker infection as source of infection and sepsis; pacemaker extracted, Staphylococcus aureus Bacteremia, Paroxysmal A-fibrillation, anticoagulated on coumadin, Type 2 Diabetes mellitus controlled on exterminator helper termite insulin, Morbid obesity with BMI 46.4 in adult, bilateral lower extremity cellulitis (resolved), acute on chronic diastolic heart failure (stable) Discharge Instructions Patient is to be discharged to [facility] for physical rehabilitation Patient is to discharged with the PICC line IV antibiotic for 6 weeks from the 08/02/18 blood culture results which would mean that the last day of IV Ceftriaxone 2 gram daily is September 13, 2018 Patient has follow ups with primary care doctor, INR check, and cardiology appointments to re-discuss when to place a new pacemaker Patient should have INR check 3 days from hospital discharge because she is on coumadin and amiodarone 08/15/2018 11:10 AM Provider Jimi Sanchez DO Department Family Practice [facility] 08/15/2018 6:15 PM Provider Esvin Serrano Sp Department Pharmacy, [facility] 08/29/2018 10:00 AM Provider Blair Pena PA-C Department Cardiology, [facility] 09/16/2018 11:30 AM Provider Migdalia Burgos DO Department Cardiology, [facility] 10/07/2018 11:15 AM Provider Nurse Annual Wellness [facility] Department Ancillary [facility] Call 911 and go to the Emergency Room if: * You have tightness or pain in your chest that does not go away with rest or Nitroglycerin * You are very short of breath even with rest Call your doctor if any of the following symptoms or problems start or get worse: * Shortness of breath or difficulty breathing * Wake up at night short of breath * Chest pain * Cough * Swelling of your hands, fee, or legs * More fatigued or tired with your normal activity * Palpitations - sudden fast heart beats WEIGHT * Weigh yourself every morning after using the bathroom. * Use the same scale. * Wear the same amount of clothing. * Write your weight down on your chart. * Call your doctor if you gain more than 2-3 pounds in 1-2 days. MEDICATIONS * Use this discharge instruction sheet for instructions. * Take your medications at the time your doctor ordered. * Do not skip a dose of your medicines. * If you miss a dose of medicine, take as soon as possible, but DO NOT DOUBLE A DOSE. * Read your medicine information when you get home. * Know all of the side effects of your medicine. * Call your doctor's office if you have any side effects. * Be sure all of your doctors know what medicine and herbs you take (including cold, flu, and herbal medicine). * Pain Medicine: If you do not get relief from your pain, please call your doctor for help. Take the following with you to your follow-up doctor appointments: * Weight Chart * Medication List * List of questions Do not drink excessive alcohol, beer or wine. Subjective Patient on medical johns.patient is ambulatory. Patient denies chest pain. Patient breathing comfortably on room air Physical Exam Vital Signs (Past 24 Hours): Last Vital Signs Temp 36.4 C L 08/12/18 09:34 Pulse 67 08/12/18 09:34 Resp 20 08/12/18 09:34 BP 157/63 H 08/12/18 09:34 Pulse Ox 99 08/12/18 09:34 Constitutional: + obese Eyes: PERRL, conjunctivae normal, anicteric sclerae EOM intact bilaterally ENMT: external ear and nose normal, oropharynx normal Respiratory: normal respiratory effort, lungs clear to auscultation Cardiovascular: Rate/Rhythm: regular rhythm and + bradycardic Chest (Breasts): normal inspection/palpation of breasts (left chest with pacemaker excision scar) Gastrointestinal (Abdomen): normal bowel sounds, soft, nontender, no hepatosplenomegaly Musculoskeletal: Head/Neck/Chest: normocephalic and head atraumatic Neurologic: PERRL, EOMI, accommodation nl, no face palsy, no dysarthria CN's II-XI intact bilaterally Psychiatric: A+Ox3, euthymic affect
--- NOTE | 2018-08-12 12:37 | Discharge Summary ---
Date of Service August 12, 2018 Admission HPI Per Admitting Provider CHIEF COMPLAINT: Nausea and feeling cold. HISTORY OF PRESENT ILLNESS: This is a 77-year-old female with past medical history significant for type 2 diabetes, hyperlipidemia, COPD, CAD, diastolic CHF, atrial fibrillation, hypertension, morbid obesity, nocturnal hypoxia, generalized osteoarthritis, presents due to nausea and feeling cold at home. The patient lives alone. She was recently in the hospital from 06/25/2018 to 07/02/2018. At that time, she presented with visual issues and lightheadedness and was found to have symptomatic bradycardia with sinus pause and status post pacemaker and she went to rapid AFib and she was controlled with amiodarone and discharged on p.o. amiodarone and also Lopressor. The patient is on Coumadin and she was discharged to [facility]. After that she was discharged back home from [facility] on 07/06/2018. Meanwhile, she has had a followup with cardiology and her diuretics were changed to Lasix 20 mg daily and spironolactone 12.5 mg 3 times a week. She states she has tried to take the medication regularly. She noticed some drainage from her pacemaker site a few days back, she thought it could be pus and today also she had some mild drainage and while at home she started feeling very cold and nauseous and she lives alone so she got worried and came to the ER. She says since she got discharged from [facility] in 07/06/2018 she had showered only once. Denies any fevers at home but had a mild temp spike in the ER. Denies any chest pain, denies any shortness of breath. No headache but had some neck pain and with Tylenol this is improving. No blurred visions, no earache, no runny nose, no sore throat. Denies any cough. No difficulties swallowing. Appetite is okay. Ambulating with cane at home okay. Denies any abdominal pain. Normal bowel and bladder movements. No blood in the stools. No burning micturition. No hematuria. She has swelling in the lower extremity and they are erythematous. She thinks that swelling of the lower extremity maybe increased. She has lower extremity tenderness on palpation. Blood pressure was running on the lower side in the ER. There is leucocytosis. Lactic acid is normal. ALLERGIES: CEPHALOSPORIN, CIPRO, CLINDAMYCIN, ERYTHROMYCIN BASE, METFORMIN, PENCILLIN, SULFA ANTIBIOTICS. PAST MEDICAL HISTORY: As mentioned above. PAST SURGICAL HISTORY: Left knee arthroplasty, adenoidectomy, bilateral cataract surgeries, total abdominal hysterectomy with removal of tubes, status post pacemaker. MEDICATIONS: Currently, the patient is on Lasix 20 mg p.o. daily; spironolactone 12.5 mg p.o. on Mondays, Wednesdays and Fridays; amiodarone 200 mg p.o. b.i.d.; hydralazine 25 mg p.o. b.i.d.; Lopressor 250 mg p.o. b.i.d.; Coumadin 5 mg as directed; Lantus 35 units at bedtime; Zocor 20 mg p.o. at bedtime; Combivent is 1 puff 4 times a day; lisinopril 40 mg p.o. daily; omeprazole 20 mg p.o. daily; Advair Diskus 250/50 mcg 1 inhalation b.i.d.; insulin sliding scale; iron; vitamin C one tablet daily; magnesium 400 mg p.o. daily; clobetasol propionate apply topical to affected areas b.i.d.; Tylenol 500 mg p.o. q. 8 hours p.r.n.; aspirin 81 mg p.o. daily; oxygen 2 L at bedtime. FAMILY HISTORY: Significant for brother had lung cancer with blood cancer. Mother had diabetes and heart disorder. Father had stroke. Son has COPD. SOCIAL HISTORY: Currently, lives alone. Quit smoking in 2003 and prior to that smoked half pack a day for 40 years. No alcohol use. No drug use. REVIEW OF SYMPTOMS: As per HPI. Rest of review of systems negative. Admission Exam Per Admitting Provider PHYSICAL EXAMINATION: GENERAL: Patient is of moderate built, not in acute distress. VITAL SIGNS: Temperature 37.8, pulse 62, respiratory rate 24, blood pressure 98/74, oxygen 94% on 2 L. HEENT: No pallor. No icterus. Pupils equal, round, and reactive to light. NECK: No JVD. No neck masses. No carotid bruits CARDIOVASCULAR: S1, S2 heard. Regular rate and rhythm. No murmurs. No gallop. In the pacemaker site mild drainage seen. RESPIRATORY SYSTEM: Normal AP diameter. No accessory muscle use. No wheezing, no crackles. ABDOMEN: Soft, bowel sounds present. Nontender. No distention. CENTRAL NERVOUS SYSTEM: Cranial nerves II-XII grossly intact. Nonfocal.. EXTREMITIES: Bilateral lower extremities, edema present and erythematous , warm and tender to palpation. Principal Diagnosis pacemaker infection as source of infection and sepsis; pacemaker extracted, Staphylococcus aureus Bacteremia, Paroxysmal A-fibrillation, anticoagulated on coumadin, Type 2 Diabetes mellitus controlled on fpc insulin, Morbid obesity with BMI 46.4 in adult, bilateral lower extremity cellulitis (resolved), acute on chronic diastolic heart failure (stable) Discharge Exam Constitutional + obese Eyes PERRL, conjunctivae normal, anicteric sclerae EOM intact bilaterally ENMT external ear and nose normal, oropharynx normal Respiratory normal respiratory effort, lungs clear to auscultation Cardiovascular Rate/Rhythm: regular rhythm and + bradycardic Extremities: + edema (swelling of hands) Chest (Breasts) normal inspection/palpation of breasts (left chest with pacemaker excision scar) Gastrointestinal (Abdomen) normal bowel sounds, soft, nontender, no hepatosplenomegaly Musculoskeletal Head/Neck/Chest: normocephalic and head atraumatic Neurologic PERRL, EOMI, accommodation nl, no face palsy, no dysarthria CN's II-XI intact bilaterally Psychiatric A+Ox3, euthymic affect Discharge Data Allergies Allergy/AdvReac Type Severity Reaction Status Date / Time Cephalosporins Allergy Unknown Unknown Verified 07/30/18 02:19 Cipro Allergy Unknown RASH Verified 06/10/16 18:14 ciprofloxacin Allergy Unknown RASH Verified 07/30/18 02:19 clindamycin Allergy Unknown RASH Verified 07/30/18 02:19 erythromycin base Allergy Unknown Unknown Verified 07/30/18 02:19 metformin Allergy Unknown EDEMA FACE Unverified 07/30/18 02:19 AND HANDS, ITCHY Penicillins Allergy Unknown Unknown Verified 07/30/18 02:19 Sulfa (Sulfonamide Allergy Unknown . Verified 07/30/18 02:19 Antibiotics) Consultations 07/30/18 02:13 ED Decision to Admit Stat 07/30/18 04:59 Consult Case Management - Discharge Planning Routine 07/30/18 08:00 Consult Cardiology Routine 07/30/18 13:49 Consult Cardiology Routine 07/31/18 08:45 Consult Infectious Diseases Routine 08/01/18 11:27 Consult Anesthesiology Routine Procedures Performed Operation Date: 08/02/18 07:45 Actual Procedures p Transesophageal Echo - Leo Simpson MD Operation Date: 08/02/18 10:00 Actual Procedures s Lead, Extraction Dual Pacing(Left) - Migdalia Burgos DO p Pacer Removal(Left) - Migdalia Burgos DO Ordered Studies 07/30/18 04:59 CT chest wo con Urgent 08/02/18 06:45 EP Lab Images for PACS ONCE Hospital Course (1) Pacemaker infection: pacemaker infection as source of infection and sepsis; pacemaker extracted, Staphylococcus aureus Bacteremia, There was a 5 cm fluid collection surrounding the left pacemaker on CT imaging initially on broad-spectrum antibiotics with aztreonam and vancomycin and doxycycline; and then cefazolin from admission Blood cultures positive for MSSA 08/02/18: pacemaker extraction and ALEXA did not show endocarditis 08/02/18 blood culture drawn after blood cultures with no growth by 08/06/18, patient was transitioned from cefazolin to ceftriaxone 2 grams daily and expected to have via the PICC line IV antibiotics for 6 weeks from the 08/02/18 blood culture results which would mean that the last day of IV Ceftriaxone is September 13, 2018 Patient is to be discharged to [facility] for physical rehabilitation Patient is to discharged with the PICC line IV antibiotic for 6 weeks from the 08/02/18 blood culture results which would mean that the last day of IV Ceftriaxone 2 gram daily is September 13, 2018 Paroxysmal A-fibrillation patient was being monitored closely because of previous concerns for bradycardia after pacemaker removal but current heart rate is stable and when patient reports symptoms of feeling lightheaded, there has not been abnormal heart rates or blood pressures to date Amiodarone resumed as 100 mg as per cash register balancer, continue amiodarone, no beta blockers on discharge coumadin daily and INR at goal between 2 to 3 Patient has follow ups with primary care doctor, INR check, and cardiology appointments to re-discuss when to place a new pacemaker Patient should have INR check 3 days from hospital discharge because she is on coumadin and amiodarone Chronic respiratory failure secondary to COPD Stable acute on chronic diastolic heart failure is now stable On aspirin and statin hydralazine, lisinopril, and Lasix Bilateral lower extremity Cellulitis has resolved Type 2 Diabetes mellitus controlled on fpc insulin -continue home dose long acting insulin -sliding scale insulin as needed Morbid obesity with BMI 46.4 in adult encourage ambulation PT/OT evaluations completed Gastroesophageal reflux disease Continue proton pump inhibitors DVT ppx: coumadin resumed as INR at goal between 2 to 3 Full Code Discharge Diagnosis pacemaker infection as source of infection and sepsis; pacemaker extracted, Staphylococcus aureus Bacteremia, Paroxysmal A-fibrillation, anticoagulated on coumadin, Type 2 Diabetes mellitus controlled on fpc insulin, Morbid obesity with BMI 46.4 in adult, bilateral lower extremity cellulitis (resolved), acute on chronic diastolic heart failure (stable) Discharge Instructions Patient is to be discharged to [facility] for physical rehabilitation Patient is to discharged with the PICC line IV antibiotic for 6 weeks from the 08/02/18 blood culture results which would mean that the last day of IV Ceftriaxone 2 gram daily is September 13, 2018 Patient has follow ups with primary care doctor, INR check, and cardiology appointments to re-discuss when to place a new pacemaker Patient should have INR check 3 days from hospital discharge because she is on coumadin and amiodarone 08/15/2018 11:10 AM Provider Jimi Sanchez DO Department Family Practice [facility] 08/15/2018 6:15 PM Provider Esvin Serrano Sp Department Pharmacy, [facility] 08/29/2018 10:00 AM Provider Blair Pena PA-C Department Cardiology, [facility] 09/16/2018 11:30 AM Provider Migdalia Burgos DO Department Cardiology, [facility] 10/07/2018 11:15 AM Provider Nurse [facility] Department Ancillary [facility] Call 911 and go to the Emergency Room if: * You have tightness or pain in your chest that does not go away with rest or Nitroglycerin * You are very short of breath even with rest Call your doctor if any of the following symptoms or problems start or get worse: * Shortness of breath or difficulty breathing * Wake up at night short of breath * Chest pain * Cough * Swelling of your hands, fee, or legs * More fatigued or tired with your normal activity * Palpitations - sudden fast heart beats WEIGHT * Weigh yourself every morning after using the bathroom. * Use the same scale. * Wear the same amount of clothing. * Write your weight down on your chart. * Call your doctor if you gain more than 2-3 pounds in 1-2 days. MEDICATIONS * Use this discharge instruction sheet for instructions. * Take your medications at the time your doctor ordered. * Do not skip a dose of your medicines. * If you miss a dose of medicine, take as soon as possible, but DO NOT DOUBLE A DOSE. * Read your medicine information when you get home. * Know all of the side effects of your medicine. * Call your doctor's office if you have any side effects. * Be sure all of your doctors know what medicine and herbs you take (including cold, flu, and herbal medicine). * Pain Medicine: If you do not get relief from your pain, please call your doctor for help. Take the following with you to your follow-up doctor appointments: * Weight Chart * Medication List * List of questions Do not drink excessive alcohol, beer or wine. Total Time Total Time Spent Total Time Spent (In Minutes): 40 minutes Total Time Includes: Examination of the Patient, Discharge Planning and Medication Reconciliation Discharge Plan Discharge Items Patient Disposition: Transfer Inpatient Rehab Fac Reason For Visit: NAUSEA, FEELING COLD Discharge Diagnosis: pacemaker infection as source of infection and sepsis; pacemaker extracted, Staphylococcus aureus Bacteremia, Paroxysmal A- fibrillation, anticoagulated on coumadin, Type 2 Diabetes mellitus controlled on long term care administrator insulin, Morbid obesity with BMI 46.4 in adult, bilateral lower extremity cellulitis (resolved), acute on chronic diastolic heart failure Condition: Good Discharge Goals: Improve disease control Activity: Per 'Additional Instructions' section Non-emergency contact: Primary Care Provider and Agricultural Sciences Professor Call non-emergency contact if: you have any medication questions Follow-up/Referrals: Jimi Sanchez [Primary Care Provider] - Diet: Carb Consistent or DM2 Addtl Provider Instructions: Patient is to be discharged to [facility] for physical rehabilitation Patient is to discharged with the PICC line IV antibiotic for 6 weeks from the 08/02/18 blood culture results which would mean that the last day of IV Ceftriaxone 2 gram daily is September 13, 2018 Patient has follow ups with primary care doctor, INR check, and cardiology appointments to re-discuss when to place a new pacemaker Patient should have INR check 3 days from hospital discharge because she is on coumadin and amiodarone 08/15/2018 11:10 AM Provider Jimi Sanchez DO [facility] 08/15/2018 6:15 PM Provider [facility] Department Pharmacy, [facility] 08/29/2018 10:00 AM Provider Blair Pena PA-C Department Cardiology, [facility] 09/16/2018 11:30 AM Provider Migdalia Burgos DO Department Cardiology, [facility] 10/07/2018 11:15 AM Provider Nurse [facility] Department Ancillary [facility] Call 911 and go to the Emergency Room if: * You have tightness or pain in your chest that does not go away with rest or Nitroglycerin * You are very short of breath even with rest Call your doctor if any of the following symptoms or problems start or get worse: * Shortness of breath or difficulty breathing * Wake up at night short of breath * Chest pain * Cough * Swelling of your hands, fee, or legs * More fatigued or tired with your normal activity * Palpitations - sudden fast heart beats WEIGHT * Weigh yourself every morning after using the bathroom. * Use the same scale. * Wear the same amount of clothing. * Write your weight down on your chart. * Call your doctor if you gain more than 2-3 pounds in 1-2 days. MEDICATIONS * Use this discharge instruction sheet for instructions. * Take your medications at the time your doctor ordered. * Do not skip a dose of your medicines. * If you miss a dose of medicine, take as soon as possible, but DO NOT DOUBLE A DOSE. * Read your medicine information when you get home. * Know all of the side effects of your medicine. * Call your doctor's office if you have any side effects. * Be sure all of your doctors know what medicine and herbs you take (including cold, flu, and herbal medicine). * Pain Medicine: If you do not get relief from your pain, please call your doctor for help. Take the following with you to your follow-up doctor appointments: * Weight Chart * Medication List * List of questions Do not drink excessive alcohol, beer or wine. Prescriptions: New amiodarone 100 mg tablet 100 mg PO QAM 30 Days Qty: 30 RF: 0 warfarin [Coumadin] 2 mg Tablet 2 mg PO DAILY@1600 30 Days Qty: 30 RF: 0 Continued fluticasone propion-salmeterol 250-50 mcg/dose Blister With Device 1 inh INHALATION BID RF: 0 hydralazine 25 mg Tablet 25 mg PO BID RF: 0 aspirin [Aspir-81] 81 mg Tablet,Delayed Release (Dr/Ec) 81 mg PO QAM RF: 0 simvastatin 20 mg Tablet 20 mg PO HS RF: 0 omeprazole 20 mg Capsule,Delayed Release(Dr/Ec) 20 mg PO HS RF: 0 lisinopril 40 mg Tablet 40 mg PO HS RF: 0 Lantus Solostar U-100 Insulin 100 unit/mL (3 mL) Insulin Pen 35 unit SUBCUT QPM RF: 0 ipratropium-albuterol 20-100 mcg/actuation Mist 1 puff INHALATION QID RF: 0 magnesium oxide 400 mg magnesium Tablet 400 mg PO BID RF: 0 ferrous sulfate [iron] 325 mg (65 mg iron) Tablet 325 mg PO DAILY RF: 0 furosemide 20 mg Tablet 20 mg PO QAM RF: 0 clobetasol 0.05 % Cream 1 applic TOPICAL BID PRN (Reason: BREAKOUTS) RF: 0 Novolog U-100 Insulin aspart 100 unit/mL solution 10 unit subcut BID RF: 0 Discontinued amiodarone 200 mg tablet 200 mg PO BID RF: 0 metoprolol tartrate 25 mg tablet 50 mg PO BID RF: 0 warfarin [Coumadin] 5 mg Tablet 5 mg PO 2XWK RF: 0 Novolog U-100 Insulin aspart 100 unit/mL solution 12 units subcut DAILYBL RF: 0 warfarin [Coumadin] 5 mg tablet 2.5 mg PO 5XWK RF: 0 Stand-Alone Forms: [facility] Discharge Orders: Discharge Order (Routine); Ordered 08/12/18 Ordered By: Winston Fortune Skilled Items Patient informed of condition?: Yes DNR: No Discharge Level of Care: Acute rehab Communicable Disease: No Discharge Prognosis: Stable Admission Data Admit Date/Time: 07/30/18 03:09 Attending Provider: Winston Fortune Admit Provider: Cameron Sigala Primary Care Provider: Jimi Sanchez Other Providers: Migdalia Burgos ; Home[facility]Nursing Agency ; Cameron Sigala ; Eduar Carter ; Dennis Barnes ; Leo Simpson ; Matheus Nix ; Jesse Lee ; Blair Pena ; Fartun Sales ; Steven Lowery ; José Luis Estes Service: Medical Other Interventions: Discharge Summary Assessment (RN) Last Done: 08/12/18 09:34
--- NOTE | 2018-08-14 12:37 | Consultation ---
Date of Consultation August 16, 2018 History of Present Illness Attending Physician: Winston Fortune MD Allergies Allergy/AdvReac Type Severity Reaction Status Date / Time Cephalosporins Allergy Unknown Unknown Verified 07/30/18 02:19 Cipro Allergy Unknown RASH Verified 06/10/16 18:14 ciprofloxacin Allergy Unknown RASH Verified 07/30/18 02:19 clindamycin Allergy Unknown RASH Verified 07/30/18 02:19 erythromycin base Allergy Unknown Unknown Verified 07/30/18 02:19 metformin Allergy Unknown EDEMA FACE Unverified 07/30/18 02:19 AND HANDS, ITCHY Penicillins Allergy Unknown Unknown Verified 07/30/18 02:19 Sulfa (Sulfonamide Allergy Unknown . Verified 07/30/18 02:19 Antibiotics) Home Medications Home Medications Medication Instructions Recorded Confirmed Type Lantus Solostar U-100 Insulin 35 unit SUBCUT QPM 05/08/18 07/30/18 History aspirin [Aspir-81] 81 mg PO QAM 05/08/18 07/30/18 History fluticasone propion-salmeterol 1 inh INHALATION BID 05/08/18 07/30/18 History hydralazine 25 mg PO BID 05/08/18 07/30/18 History ipratropium-albuterol 1 puff INHALATION QID 05/08/18 07/30/18 History lisinopril 40 mg PO HS 05/08/18 07/30/18 History magnesium oxide 400 mg PO BID 05/08/18 07/30/18 History omeprazole 20 mg PO HS 05/08/18 07/30/18 History simvastatin 20 mg PO HS 05/08/18 07/30/18 History Novolog U-100 Insulin aspart 10 unit SUBCUT BID 06/27/18 07/30/18 History clobetasol 1 applic TOPICAL BID PRN 06/27/18 07/30/18 History ferrous sulfate [iron] 325 mg PO DAILY 07/30/18 07/30/18 History furosemide 20 mg PO QAM 07/30/18 07/30/18 History amiodarone 100 mg PO QAM 30 Days #30 tab 08/12/18 Rx warfarin [Coumadin] 2 mg PO DAILY@1600 30 Days #30 tab 08/12/18 Rx Patient History Medical History DM type 2 (diabetes mellitus, type 2) (Chronic) COPD (chronic obstructive pulmonary disease) (Chronic) Dyslipidemia (Chronic) Diastolic CHF (Chronic) CAD (coronary artery disease) (Chronic) Osteoarthritis (Chronic) Nocturnal hypoxemia (Chronic) CHF (congestive heart failure) (Chronic) COPD (chronic obstructive pulmonary disease) (Chronic) Type 2 diabetes mellitus (Chronic) Surgical History History of hysterectomy (Chronic) S/P adenoidectomy (Chronic) History of cataract surgery (Chronic) History of total left knee replacement (Chronic) Family History Other No pertinent family history Social History Preferred Language: Zambian Beliefs That Will Affect Care: None marital status: Single Current Living Situation: Alone Current Living Situation Comment: Lives alone. Able to complete ADLs independe ntly up until pacemaker placed Other Information That Helps Us Care for You: No Feels Safe at Home: Yes Safety Concerns: Feels Safe At This Time Smoking Status: Former smoker Hx Alcohol Use: No Hx Substance Use: No Physical Exam Vital Signs (Past 24 Hours): Last Vital Signs Temp 36.4 C L 08/12/18 09:34 Pulse 67 08/12/18 09:34 Resp 20 08/12/18 09:34 BP 157/63 H 08/12/18 09:34 Pulse Ox 99 08/12/18 09:34
--- NOTE | 2018-08-16 08:26 | Coding Query ---
SEPSIS To promote full compliance with coding requirements relating to patient care, physician participation is requested in all cases of claims adjuster crop uncertainty. Please assist us with the question(s) below: The medical record reflects the following clinical findings: Pacemaker site infection. Progress notes mention both bacteremia and Sepsis. Seeking clarification. Please check below the diagnosis that was treated during this Inpatient stay. Thank you ! Chandler Degroot, RUST CCS ____ (x )Bacteremia (Nonspecific laboratory finding of bacteria in the blood) Specify Organism Staphylococcus aureus Bacteremia (x ) Present on Admission ( ) Not present on admission ( ) Unable to clinically determine ( x) Septicemia (Systemic disease associated with the presence of pathogenic microorganisms in the blood): Specify Organism Staphylococcus aureus Bacteremia (x) Present on Admission ( ) Not present on admission ( ) Unable to clinically determine ( ) Sepsis Specify Organism Specify Associated Condition/Diagnosis ( ) Present on Admission ( ) Not present on admission ( ) Unable to clinically determine ( ) Severe Sepsis (Sepsis associated with acute organ dysfunction) Specify Organism Specify Associated Condition/Diagnosis ( ) Present on Admission ( ) Not present on admission ( ) Unable to clinically determine ( ) Septic Shock (Severe sepsis with acute circulatory failure, unexplained by other causes) ( ) Present on Admission ( ) Not present o n admission ( ) Unable to clinically determine ( ) Other, patient has: MTDD
== END 2018-08-12 13:30 | DRG 260 ==
LOC: ED 00:28 → 2S 03:09 → SUATTDRO 03:09 → 2S 05:05 → 4E 08-10 16:58
PROC: CLS.TEE (2018-08-02 07:45)

== ENCOUNTER 2019-03-28 08:52 | Inpatient (IN) ==
[2019-03-28] MEDS ORDERED: FUROSEMIDE 40 MG/4 ML VIAL IV STA (09:12)
[2019-03-28] MEDS ORDERED: ALBUT/IPRATROP 3MG/0.5MG NEB 3 ML VIAL NEB ONE (09:12)
[2019-03-28] MEDS ORDERED: MAGNESIUM SULFATE / D5W 1 GM/100 ML BAG IV ONE (09:12)
--- NOTE | 2019-03-28 10:12 | XRay Report ---
XR chest 1V portable HISTORY: 78 years-old Female Chest Pain acute atypical chest pain COMPARISON: Chest radiograph 08/08/2018 TECHNIQUE: Portable AP view of the chest FINDINGS: Cardiac silhouette is enlarged, unchanged. Calcified plaque of the thoracic aortic arch. Interval rem oval of the right-sided PICC. No pneumothorax, large pleural effusion or overt pulmonary edema. Mild linear subsegmental bibasilar opacities are unchanged suggestive of atelectasis. Ill-defined opacity of the right upper lung is likely secondary to device external to the patient. Degenerative changes o f the shoulders and spine. IMPRESSION: 1. Cardiomegaly without overt pulmonary edema. 2. Bibasilar opacities suggest atelectasis. 3. Ill-defined right upper lung opacity may be artifactual secondary to device external to the patien t. The above report was generated using voice recognition software. It may contain grammatical, syntax o r spelling errors. Electronically signed by: Sanchez Francis M.D. 03/28/2019 10:11 AM
[2019-03-28 10:30] LABS: Alanine Aminotransferase 17 U/L (12-78); Albumin Globulin Ratio 0.8 (0.9-2); Aspartate Aminotransferase 20 U/L (15-37); BUN Creatinine Ratio 26.8 (10-20); Bilirubin,Total 0.4 mg/dl (0.2-1); Blood Urea Nitrogen 27 mg/dl (7-18); Calcium 8.4 mg/dl (8.5-10.1); Carbon Dioxide 32 mmol/L (21-32); Chloride 108 mmol/L (98-107); Creatinine Clr Calc Pharmacy 62.3 ml/min; Est GFR (African American) 62.2; Est GFR (Non-African American) 53.7; Globulin 3.8 gm/dl (2.5-4.0); Glucose 171 mg/dl (70-99); Lipase 212 U/L (73-393); Potassium 4.9 mmol/L (3.5-5.1); Sodium 142 mmol/L (136-145); Total Protein 6.8 gm/dl (6.4-8.2)
[2019-03-28 10:36] LABS: Alkaline Phosphatase 99 U/L (45-117); Creatine Kinase 47 U/L (26-192); Creatine Kinase MB 2.3 ng/ml (0.5-3.6); NT Pro B Type Natriuretic Pept 1684 pg/ml (0-1800); Prothrombin Time 35.6 Seconds (9.0-12.0); Troponin I < 0.015 ng/ml (0-0.045)
[2019-03-28 10:42] LABS: Basophils # (auto) 0.02 K/uL (0-0.2); Basophils % (auto) 0.3 %; Eosinophils # (auto) 0.08 K/uL (0-0.5); Eosinophils % (auto) 1.4 %; Hematocrit (blood only) 37.4 % (37-47); Hemoglobin 10.2 g/dL (12.0-16.0); Hypochromasia Present; Immature Granulocytes # (auto) 0.02 K/uL (0.00-0.02); Immature Granulocytes % (auto) 0.3 %; Lymphocytes # (auto) 0.74 K/uL (1.2-3.4); Lymphocytes % (auto) 12.8 %; Mean Corpuscular Hemoglobin 23.6 pg (25-34); Mean Corpuscular Hgb Conc 27.3 g/dL (32-36); Mean Corpuscular Volume 86.6 fL (80-100); Monocytes # (auto) 0.26 K/uL (0.11-0.59); Monocytes % (auto) 4.5 %; Neutrophils # (auto) 4.66 K/uL (1.4-6.5); Neutrophils % (auto) 80.7 %; Platelet Count 128 K/uL (130-400); Platelet Estimate Decreased (Normal); RDW Standard Deviation 60.5 fL (36.4-46.3); Red Blood Count 4.32 M/uL (4.2-5.4); Schistocytes 1+; Tear Drop Cells 1+; White Blood Count 5.78 K/uL (4.8-10.8)
[2019-03-28 10:58] LABS: INR 3.8 (0.9-1.1)
[2019-03-28] MEDS ORDERED: GLUCAGON FOR INJ 1 MG VIAL SQ PRN (12:19)
[2019-03-28] MEDS ORDERED: DEXTROSE 50% 50 ML SYRINGE IV PRN (12:19)
[2019-03-28] MEDS ORDERED: GLUCOSE 40% GEL 15 GM TUBE PO PRN (12:19)
[2019-03-28] MEDS ORDERED: CARBOHYDRATES FOR HYPOGLYCEMIA PO PRN (12:19)
[2019-03-28] MEDS ORDERED: GLUCOSE 10 TABS/TUBE PO PRN (12:19)
--- NOTE | 2019-03-28 12:39 | History & Physical Report ---
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 Patient was started on BIPAP in the emergency room. Patient than transitioned to nasal cannula while speaking with hospitalist. There is some wheezing but patient able to carry conservation with BIPAP and then off BIPAP with nasal cannula. -Chest X ray does not suggest pneumonia and does not suggest acute volume overload 1. Cardiomegaly without overt pulmonary edema. 2. Bibasilar opacities suggest atelectasis. 3. Ill-defined right upper lung opacity may be artifactual secondary to device external to the patient. 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 -will repeat EKG and monitor on telemetry -continue statin -furosemide 20 mg q48 hours -patient has history of Tachy-jewel syndrome so will try to avoid excessive metoprolol beta blockade if possible -avoid hydralazine for now to avoid reflex tachycardia -hold coumadin for now because admission INR is 3.8 -if any complications in rate control or with cardiac rhythm management, then should get cardiology consult given complicated cardiac history (3) Chronic venous insufficiency: -small abrasions from chronic venous insufficiency -history of MSSA in prior history of surface wound cultures, repeat would culture -patient has multiple listed drug allergies but she is a poor historian and cannot confirm drug reactions or severity -will continue antibiotics as Doxycycline 100 mg IV BID while inpatient for Staph coverage -furosemide 20 mg q48 hours -PT/OT evaluation -may need madiha ling placed in the ED as short term to avoid urine to legs -wound care q nursing shift, wound nursing (4) DM type 2 (diabetes mellitus, type 2): Diabetes type 2 with detention current use of insulin -at home, patient reports that she takes aspart 10 units at breakfast and 12 units for lunch and 10 units for dinner -at home she also reports Lantus 15 units as twice a day instead of qHS as listed in medical records in the past -will check HBA1c -will have Lantus as 15 units qHS for now and place on sliding scale insulin and titrate up scheduled insulin based on glucose levels -continue lisinopril 40 mg daily DVT prophylaxis: INR is supratherapeutic so patient si already anticaogulated, hold coumadin for now, can resume coumadin when INR is 2 to 3 Full Code Status Patient's son [phone] 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 Patient was started on BIPAP in the emergency room. Patient than transitioned to nasal cannula while speaking with hospitalist. There is some wheezing but patient able to carry conservation with BIPAP and then off BIPAP with nasal cannula. Patient denies fevers at home. no abdominal pain. no nausea. no dizziness. no chest pain. She discusses with hospitalist about her frustration with wound care of the legs recently as they are chronically inflamed and she has some abrasions of the skin. Allergies: patient has multiple listed drug allergies but she is a poor historian and cannot confirm drug reactions or severity Family History: brother with diabetes mellitus Primary Care Provider: Jimi Sanchez DO Allergies Allergy/AdvReac Type Severity Reaction Status Date / Time Cephalosporins Allergy Unknown Unknown Verified 03/28/19 10:45 Cipro Allergy Unknown RASH Verified 06/10/16 18:14 ciprofloxacin Allergy Unknown RASH Verified 03/28/19 10:45 clindamycin Allergy Unknown RASH Verified 03/28/19 10:45 erythromycin base Allergy Unknown Unknown Verified 03/28/19 10:45 metformin Allergy Unknown EDEMA FACE Unverified 03/28/19 10:45 AND HANDS, ITCHY Penicillins Allergy Unknown Unknown Verified 03/28/19 10:45 Sulfa (Sulfonamide Allergy Unknown . Verified 03/28/19 10:45 Antibiotics) Home Medications Home Medications Medication Instructions Recorded Confirmed Type hydralazine 50 mg PO BID 05/08/18 03/28/19 History lisinopril 40 mg PO HS 05/08/18 03/28/19 History magnesium oxide 400 mg PO BIDM 05/08/18 03/28/19 History omeprazole 20 mg PO HS 05/08/18 03/28/19 History simvastatin 20 mg PO HS 05/08/18 03/28/19 History ferrous sulfate [iron] 325 mg PO QAM 07/30/18 03/28/19 History furosemide 20 mg PO Q2D 07/30/18 03/28/19 History insulin aspart U- 100 100 unit/mL 12 units SQ QDL ml 10/03/18 03/28/19 History subcutaneous solution insulin glargine (U-100) 100 15 units SUBCUT HS ml 10/03/18 03/28/19 History unit/mL (3 mL) subcutaneous pen ipratropium 20 mcg-albuterol 100 1 puffs INH QID 10/03/18 03/28/19 History mcg/actuation mist for inhalation warfarin 2 mg tablet 2 mg PO QDD 10/03/18 03/28/19 History doxycycline hyclate 100 mg PO BID 03/28/19 03/28/19 History fluticasone propion-salmeterol 1 inh INHALATION BID 03/28/19 03/28/19 History [Wixela Inhub] insulin aspart U-100 [Novolog 10 unit SUBCUT BIDM 03/28/19 03/28/19 History U-100 Insulin aspart] Past Med/Surg History Medical History DM type 2 (diabetes mellitus, type 2) (Chronic) COPD (chronic obstructive pulmonary disease) (Chronic) Dyslipidemia (Chronic) Diastolic CHF (Chronic) CAD (coronary artery disease) (Chronic) Osteoarthritis (Chronic) Nocturnal hypoxemia (Chronic) A-fib (Chronic) CHF (congestive heart failure) (Chronic) COPD (chronic obstructive pulmonary disease) (Chronic) Type 2 diabetes mellitus (Chronic) Surgical History History of hysterectomy (Chronic) S/P adenoidectomy (Chronic) History of cataract surgery (Chronic) History of total left knee replacement (Chronic) Family History Other No pertinent family history Social History Preferred Language: Malian Communication Ability: Effective Visual Impairment: No Limitations Hearing Ability: Normal Service Counselor Required: No Beliefs That Will Affect Care: None marital status: Single Current Living Situation: Alone Current Living Situation Comment: Lives alone. current occupational status: retired Other Information That Helps Us Care for You: No Feels Safe at Home: Yes Safety Concerns: Feels Safe At This Time Smoking Status: Former smoker Tobacco Type: cigarettes ; Second Hand Exposure: Yes ; Hx Alcohol Use: No Hx Substance Use: No Review of Systems Review of Systems: All systems reviewed & are unremarkable except as noted in HPI & below Physical Exam Constitutional: cooperative Eyes: PERRL, conjunctivae normal, anicteric sclerae EOM intact bilaterally ENMT: external ear and nose normal, oropharynx normal Neck: normal visual inspection Respiratory: Auscultation: + wheezes Cardiovascular: Rate/Rhythm: + tachycardic Gastrointestinal (Abdomen): normal bowel sounds, soft, nontender, no hepatosplenomegaly Musculoskeletal: Head/Neck/Chest: normocephalic and head atraumatic Skin: bilateral lower extremity with scaly skin and abrasions and chronic discoloration from venous stasis Neurologic: PERRL, EOMI, accommodation nl, no face palsy, no dysarthria CN's II-XI intact bilaterally Psychiatric: A+Ox3, euthymic affect Results & Data Vital Signs (Past 12 Hours) Vital Signs Temp Pulse Pulse Resp BP BP Pulse Ox 03/28/19 12:01 118 H 20 123/76 94 03/28/19 12:00 105 H 25 H 98 03/28/19 11:34 101 H 21 148/84 H 97 03/28/19 11:00 78 26 H 95 03/28/19 10:00 85 28 H 98 03/28/19 09:52 86 20 140/61 100 03/28/19 09:47 77 30 H 140/61 98 03/28/19 09:26 72 26 H 100 03/28/19 09:18 94 03/28/19 09:05 94 03/28/19 09:02 94 H 28 H 95 03/28/19 08:59 79 21 116/69 89 L 03/28/19 08:57 36.6 C 79 28 H 116/69 88 L
[2019-03-28 12:51] LABS: Magnesium 1.9 mg/dl (1.8-2.4); Phosphorus 2.4 mg/dl (2.5-4.9); Troponin I < 0.015 ng/ml (0-0.045)
[2019-03-28 13:10] LABS: Estimated Average Glucose 131 mg/dl; Hemoglobin A1C 6.2 % (4.5-5.6)
[2019-03-28 14:30] LABS: Appearance Urine Clear (Clear); Bacteria Urine Automated Negative (Negative); Bilirubin Urine Negative (Negative); Blood Urine Negative (Negative); Color Urine Dark Yellow; Epithelial Cell Urine Auto >30 /lpf (0-5); Glucose Urine UA Negative (Negative); Ketones Urine Negative (Negative); Leukocyte Esterase Urine Negative (Negative); Nitrite Urine Negative (Negative); Protein Urine Trace (Negative); RBC Urine Automated 0-4 /hpf (0-4); Specific Gravity Urine 1.018 (1.000-1.030); Urobilinogen Urine Negative (Negative); WBC Urine Automated 0 /hpf (0-5); pH Urine 5.5 (4.5-7.5)
[2019-03-28] MEDS ORDERED: DOXYCYCLINE HYCLATE 100 MG in DEXTROSE 5% 100 ML IV ONE (14:30)
[2019-03-28] MEDS ORDERED: FUROSEMIDE 20 MG TAB PO SCH (14:30)
[2019-03-28] MEDS ORDERED: METOPROLOL TARTRATE 25 MG TAB PO STA (15:16)
[2019-03-28] MEDS: BACITRACIN OINT 15 GM TUBE EXT SCH (15:30)
[2019-03-28] MEDS: LEVALBUTEROL HCL 1.25 MG/3 ML NEB NEB SCH ×2 (15:44→23:17)
--- NOTE | 2019-03-28 16:51 | Cardiology Consultation ---
Date of Consultation March 28, 2019 Assessment & Plan (1) Chronic atrial fibrillation: (2) Tachycardia-bradycardia syndrome: (3) Diastolic CHF: (4) Venous stasis ulcers of both lower extremities: (5) COPD (chronic obstructive pulmonary disease): (6) Supratherapeutic INR: Continue metoprolol 50 mg twice daily. Unaware of her heart rate at this time. Recommend avoiding IV AV kaiser blocking agents at this time due to history of tachybradycardia syndrome with pacemaker extraction in the past. Hold Coumadin today with repeat INR in a.m. Patient appears mildly volume overloaded with bilateral pretibial edema. Weight similar to most recent office visit in December, however, office note mild volume overload at that time. Recommend Lasix 40 mg IV daily. Repeat basic metabolic panel in a.m. Antibiotics and treatment of COPD exacerbation as per primary service. History of Present Illness Reason for Consultation: Atrial fibrillation with tachybradycardia syndrome. Requesting Physician: Dr. Fortune Attending Physician: Winston Fortune MD History of Present Illness 78-year-old female presented to the emergency department with shortness of breath. Carries history of oxygen dependent COPD, chronic respiratory failure, diabetes type 2, chronic atrial fibrillation with tachybradycardia syndrome status post pacemaker implantation with extraction July 2018 secondary to infection, morbid obesity, and chronic right-sided heart failure. Patient reports exerting herself over the weekend. Shortness of breath began on Wednesday. At that time her niece, who is a nurse, began urging her to seek medical attention. Patient is somewhat vague about her symptoms leading to hospitalization. Reports cough with scant yellow sputum production. No fever or chills. Chronic orthopnea unchanged. Patient typically sleeps in a recliner. Admission weight unchanged compared to most recent office visit December 2018. In the ER she was treated with IV Lasix, BiPAP, and nebulizer. She improved, BiPAP removed, and she has been admitted to telemetry. Currently resting comfortably. 2000 cc urine output recorded. Atrial fibrillation with rapid ventricular response noted. Denies any noncompliance with beta-joann therapy. INR mildly supratherapeutic. Chronic lower extremity edema unchanged per patient. Offers no other concerns/complaints at this time. Allergies Allergy/AdvReac Type Severity Reaction Status Date / Time Cephalosporins Allergy Unknown Unknown Verified 03/28/19 10:45 Cipro Allergy Unknown RASH Verified 06/10/16 18:14 ciprofloxacin Allergy Unknown RASH Verified 03/28/19 10:45 clindamycin Allergy Unknown RASH Verified 03/28/19 10:45 erythromycin base Allergy Unknown Unknown Verified 03/28/19 10:45 metformin Allergy Unknown EDEMA FACE Unverified 03/28/19 10:45 AND HANDS, ITCHY Penicillins Allergy Unknown Unknown Verified 03/28/19 10:45 Sulfa (Sulfonamide Allergy Unknown . Verified 03/28/19 10:45 Antibiotics) Home Medications Home Medications Medication Instructions Recorded Confirmed Type hydralazine 50 mg PO BID 05/08/18 03/28/19 History lisinopril 40 mg PO HS 05/08/18 03/28/19 History magnesium oxide 400 mg PO BIDM 05/08/18 03/28/19 History omeprazole 20 mg PO HS 05/08/18 03/28/19 History simvastatin 20 mg PO HS 05/08/18 03/28/19 History ferrous sulfate [iron] 325 mg PO QAM 07/30/18 03/28/19 History furosemide 20 mg PO Q2D 07/30/18 03/28/19 History insulin aspart U- 100 100 unit/mL 12 units SQ QDL ml 10/03/18 03/28/19 History subcutaneous solution insulin glargine (U-100) 100 15 units SUBCUT HS ml 10/03/18 03/28/19 History unit/mL (3 mL) subcutaneous pen ipratropium 20 mcg-albuterol 100 1 puffs INH QID 10/03/18 03/28/19 History mcg/actuation mist for inhalation warfarin 2 mg tablet 2 mg PO QDD 10/03/18 03/28/19 History doxycycline hyclate 100 mg PO BID 03/28/19 03/28/19 History fluticasone propion-salmeterol 1 inh INHALATION BID 03/28/19 03/28/19 History [Wixela Inhub] insulin aspart U-100 [Novolog 10 unit SUBCUT BIDM 03/28/19 03/28/19 History U-100 Insulin aspart] Patient History Medical History DM type 2 (diabetes mellitus, type 2) (Chronic) COPD (chronic obstructive pulmonary disease) (Chronic) Dyslipidemia (Chronic) Diastolic CHF (Chronic) CAD (coronary artery disease) (Chronic) Osteoarthritis (Chronic) Nocturnal hypoxemia (Chronic) A-fib (Chronic) CHF (congestive heart failure) (Chronic) COPD (chronic obstructive pulmonary disease) (Chronic) Type 2 diabetes mellitus (Chronic) Surgical History History of hysterectomy (Chronic) S/P adenoidectomy (Chronic) History of cataract surgery (Chronic) History of total left knee replacement (Chronic) Family History Other No pertinent family history Social History Preferred Language: Chinese Communication Ability: Effective Visual Impairment: No Limitations Hearing Ability: Normal Shop Hand Required: No Beliefs That Will Affect Care: None marital status: Single Current Living Situation: Alone Current Living Situation Comment: Lives alone. current occupational status: retired Other Information That Helps Us Care for You: No Feels Safe at Home: Yes Safety Concerns: Feels Safe At This Time Smoking Status: Former smoker Tobacco Type: cigarettes ; Second Hand Exposure: Yes ; Hx Alcohol Use: No Hx Substance Use: No Review of Systems Review of Systems: All systems reviewed & are unremarkable except as noted in HPI & below Physical Exam Constitutional: well developed and + obese Neck: normal visual inspection Respiratory: normal respiratory effort Auscultation: + diminished lung sounds, + rales and + wheezes Cardiovascular: Rate/Rhythm: + tachycardic and + irregularly irregular Heart Sounds: normal S1 and normal S2; no murmur Extremities: + edema (Bilateral 2+ pitting edema.) Gastrointestinal (Abdomen): normal bowel sounds, soft, nontender, no hepatosplenomegaly Skin: + skin tightening Trauma: + abrasion (Bilateral pretibial) Neurologic: CN's II-XI intact bilaterally and moves all extremities; no focal motor deficits Results & Data Vital Signs (Past 12 Hours) Vital Signs Temp Pulse Pulse Resp BP BP BP 03/28/19 15:45 112 H 20 03/28/19 15:19 36.7 C 62 18 130/77 03/28/19 14:33 36.6 C 110 H 26 H 130/81 03/28/19 13:01 116 H 33 H 190/96 H 03/28/19 13:00 110 H 17 11/05/19 12:01 118 H 20 123/76 03/28/19 12:00 105 H 25 H 03/28/19 11:34 101 H 21 148/84 H 03/28/19 11:00 78 26 H 03/28/19 10:00 85 28 H 03/28/19 09:52 86 20 140/61 03/28/19 09:47 77 30 H 140/61 03/28/19 09:26 72 26 H 03/28/19 09:18 03/28/19 09:05 03/28/19 09:02 94 H 28 H 03/28/19 08:59 79 21 116/69 03/28/19 08:57 36.6 C 79 28 H 116/69 Pulse Ox 03/28/19 15:45 95 03/28/19 15:19 94 03/28/19 14:33 97 03/28/19 13:01 90 03/28/19 13:00 90 03/28/19 12:01 94 03/28/19 12:00 98 03/28/19 11:34 97 03/28/19 11:00 95 03/28/19 10:00 98 03/28/19 09:52 100 03/28/19 09:47 98 03/28/19 09:26 100 03/28/19 09:18 94 03/28/19 09:05 94 03/28/19 09:02 95 03/28/19 08:59 89 L 03/28/19 08:57 88 L Laboratory Results Laboratory Results - last 24 hr 03/28/19 03/28/19 03/28/19 09:48 09:54 09:54 WBC 5.78 RBC 4.32 Hgb 10.2 L Hct 37.4 MCV 86.6 MCH 23.6 L MCHC 27.3 L RDW Std Deviation 60.5 H RDW Coeff of Silvana 19.0 H Plt Count 128 L Immature Gran % (Auto) 0.3 Neut % (Auto) 80.7 Lymph % (Auto) 12.8 [place] % (Auto) 4.5 Eos % (Auto) 1.4 Baso % (Auto) 0.3 Immature Gran # (Auto) 0.02 Neut # (Auto) 4.66 Lymph # (Auto) 0.74 L [place] # (Auto) 0.26 Eos # (Auto) 0.08 Baso # (Auto) 0.02 Platelet Estimate Decreased L Hypochromasia Present Tear Drop Cells 1+ Schistocytes 1+ ESR PT 35.6 H INR 3.8 H Sodium Potassium Chloride Carbon Dioxide Anion Gap BUN Creatinine Est Cr Clr Drug Dosing Est GFR ( Amer) Est GFR (Non-Af Amer) BUN/Creatinine Ratio Glucose POC Glucose Estimat Average Glucose Hemoglobin A1c Calcium Phosphorus Magnesium Total Bilirubin AST ALT Alkaline Phosphatase Total Creatine Kinase CK-MB (CK-2) CK/CKMB % Calc Troponin I C-Reactive Protein NT-Pro-B Natriuret Pep Total Protein Albumin Globulin Albumin/Globulin Ratio Lipase Procalcitonin TSH Urine Color Dark Yellow Urine Appearance Clear Urine pH 5.5 Ur Specific Prosper[place] 1.018 Urine Protein Trace H Urine Glucose (UA) Negative Urine Ketones Negative Urine Blood Negative Urine Nitrite Negative Urine Bilirubin Negative Urine Urobilinogen Negative Ur Leukocyte Esterase Negative Urine WBC (Auto) 0 Urine RBC (Auto) 0-4 U Hyaline Cast (Auto) 1-5 U Epithel Cells (Auto) >30 H Urine Bacteria (Auto) Negative 03/28/19 03/28/19 03/28/19 09:54 09:54 09:54 WBC RBC Hgb Hct MCV MCH MCHC RDW Std Deviation RDW Coeff of Silvana Plt Count Immature Gran % (Auto) Neut % (Auto) Lymph % (Auto) [place] % (Auto) Eos % (Auto) Baso % (Auto) Immature Gran # (Auto) Neut # (Auto) Lymph # (Auto) [place] # (Auto) Eos # (Auto) Baso # (Auto) Platelet Estimate Hypochromasia Tear Drop Cells Schistocytes ESR 48 H PT INR Sodium 142 Potassium 4.9 Chloride 108 H Carbon Dioxide 32 Anion Gap 2.0 L BUN 27 H Creatinine 1.01 Est Cr Clr Drug Dosing 62.3 Est GFR ( Amer) 62.2 Est GFR (Non-Af Amer) 53.7 BUN/Creatinine Ratio 26.8 H Glucose 171 H POC Glucose Estimat Average Glucose Hemoglobin A1c Calcium 8.4 L Phosphorus Magnesium Total Bilirubin 0.4 AST 20 ALT 17 Alkaline Phosphatase 99 Total Creatine Kinase 47 CK-MB (CK-2) 2.3 CK/CKMB % Calc 4.9 H Troponin I < 0.015 C-Reactive Protein Cancelled NT-Pro-B Natriuret Pep 1684 Total Protein 6.8 Albumin 3.0 L Globulin 3.8 Albumin/Globulin Ratio 0.8 L Lipase 212 Procalcitonin < 0.05 TSH Urine Color Urine Appearance Urine pH Ur Specific [place]ity Urine Protein Urine Glucose (UA) Urine Ketones Urine Blood Urine Nitrite Urine Bilirubin Urine Urobilinogen Ur Leukocyte Esterase Urine WBC (Auto) Urine RBC (Auto) U Hyaline Cast (Auto) U Epithel Cells (Auto) Urine Bacteria (Auto) 03/28/19 03/28/19 03/28/19 09:54 09:54 14:24 WBC RBC Hgb Hct MCV MCH MCHC RDW Std Deviation RDW Coeff of Silvana Plt Count Immature Gran % (Auto) Neut % (Auto) Lymph % (Auto) [place] % (Auto) Eos % (Auto) Baso % (Auto) Immature Gran # (Auto) Neut # (Auto) Lymph # (Auto) [place] # (Auto) Eos # (Auto) Baso # (Auto) Platelet Estimate Hypochromasia Tear Drop Cells Schistocytes ESR PT INR Sodium Potassium Chloride Carbon Dioxide Anion Gap BUN Creatinine Est Cr Clr Drug Dosing Est GFR ( Amer) Est GFR (Non-Af Amer) BUN/Creatinine Ratio Glucose POC Glucose 187 H Estimat Average Glucose 131 Hemoglobin A1c 6.2 H Calcium Phosphorus 2.4 L Magnesium 1.9 Total Bilirubin AST ALT Alkaline Phosphatase Total Creatine Kinase CK-MB (CK-2) CK/CKMB % Calc Troponin I < 0.015 C-Reactive Protein 0.30 H NT-Pro-B Natriuret Pep Total Protein Albumin Globulin Albumin/Globulin Ratio Lipase Procalcitonin TSH 1.580 Urine Color Urine Appearance Urine pH Ur Specific [place]ity Urine Protein Urine Glucose (UA) Urine Ketones Urine Blood Urine Nitrite Urine Bilirubin Urine Urobilinogen Ur Leukocyte Esterase Urine WBC (Auto) Urine RBC (Auto) U Hyaline Cast (Auto) U Epithel Cells (Auto) Urine Bacteria (Auto) 03/28/19 16:12 WBC RBC Hgb Hct MCV MCH MCHC RDW Std Deviation RDW Coeff of Silvana Plt Count Immature Gran % (Auto) Neut % (Auto) Lymph % (Auto) [place] % (Auto) Eos % (Auto) Baso % (Auto) Immature Gran # (Auto) Neut # (Auto) Lymph # (Auto) [place] # (Auto) Eos # (Auto) Baso # (Auto) Platelet Estimate Hypochromasia Tear Drop Cells Schistocytes ESR PT INR Sodium Potassium Chloride Carbon Dioxide Anion Gap BUN Creatinine Est Cr Clr Drug Dosing Est GFR ( Amer) Est GFR (Non-Af Amer) BUN/Creatinine Ratio Glucose POC Glucose 283 H Estimat Average Glucose Hemoglobin A1c Calcium Phosphorus Magnesium Total Bilirubin AST ALT Alkaline Phosphatase Total Creatine Kinase CK-MB (CK-2) CK/CKMB % Calc Troponin I C-Reactive Protein NT-Pro-B Natriuret Pep Total Protein Albumin Globulin Albumin/Globulin Ratio Lipase Procalcitonin TSH Urine Color Urine Appearance Urine pH Ur Specific [place] Urine Protein Urine Glucose (UA) Urine Ketones Urine Blood Urine Nitrite Urine Bilirubin Urine Urobilinogen Ur Leukocyte Esterase Urine WBC (Auto) Urine RBC (Auto) U Hyaline Cast (Auto) U Epithel Cells (Auto) Urine Bacteria (Auto) (1) Diastolic CHF Heart failure chronicity: acute on chronic Qualified Code(s): I50.33 - Acute on chronic diastolic (congestive) heart failure (2) COPD (chronic obstructive pulmonary disease) COPD type: COPD with acute exacerbation Qualified Code(s): J44.1 - Chronic obstructive pulmonary disease with (acute) exacerbation
[2019-03-28] MEDS: INSULIN ASPART 100 UNITS/ML 3 ML PEN SC SCH ×2 (17:31→20:43)
[2019-03-28] MEDS: FLUTICASONE/SALMETEROL 250/50 (ADVAIR) 14 PUFF/1 INHALER INH SCH (20:40)
[2019-03-28] MEDS: lisinopriL 40 MG TAB PO SCH (20:40)
[2019-03-28] MEDS: SIMVASTATIN 20 MG TAB PO SCH (20:40)
[2019-03-28] MEDS: INSULIN GLARGINE SOLOSTAR 100 UNITS/ML 3 ML PEN SQ SCH (20:42)
[2019-03-28] MEDS: DOXYCYCLINE HYCLATE 100 MG in DEXTROSE 5% 100 ML IV SCH (20:47)
[2019-03-28] MEDS ORDERED: METOPROLOL TARTRATE 25 MG TAB PO SCH (21:00)
[2019-03-29 07:04] LABS: Mean Corpuscular Hgb Conc 28.2 g/dL (32-36)
[2019-03-29] MEDS: LEVALBUTEROL HCL 1.25 MG/3 ML NEB NEB SCH ×3 (07:05→23:09)
[2019-03-29 07:29] LABS: Albumin Level 2.9 gm/dl (3.4-5.0); BUN Creatinine Ratio 24.3 (10-20); Calcium 8.7 mg/dl (8.5-10.1); Creatinine Clr Calc Pharmacy 54.6 ml/min; Est GFR (African American) 54.3; Est GFR (Non-African American) 46.8; Potassium 4.4 mmol/L (3.5-5.1)
[2019-03-29 07:32] LABS: Albumin Globulin Ratio 0.9 (0.9-2); Bilirubin,Total 0.5 mg/dl (0.2-1); Globulin 3.4 gm/dl (2.5-4.0); Total Protein 6.3 gm/dl (6.4-8.2)
[2019-03-29 07:36] LABS: Hematocrit (blood only) 36.2 % (37-47); Hemoglobin 10.2 g/dL (12.0-16.0); Mean Corpuscular Hemoglobin 23.6 pg (25-34); Mean Corpuscular Volume 83.8 fL (80-100); Platelet Count 118 K/uL (130-400); RDW Coefficient of Variation 18.7 % (11.5-14.5); RDW Standard Deviation 57.6 fL (36.4-46.3); Red Blood Count 4.32 M/uL (4.2-5.4); White Blood Count 6.56 K/uL (4.8-10.8)
[2019-03-29 07:37] LABS: Basophils # (auto) 0.01 K/uL (0-0.2); Basophils % (auto) 0.2 %; Hypochromasia Present; Immature Granulocytes # (auto) 0.01 K/uL (0.00-0.02); Immature Granulocytes % (auto) 0.2 %; Lymphocytes # (auto) 0.71 K/uL (1.2-3.4); Lymphocytes % (auto) 10.8 %; Monocytes # (auto) 0.45 K/uL (0.11-0.59); Monocytes % (auto) 6.9 %; Neutrophils # (auto) 5.38 K/uL (1.4-6.5); Neutrophils % (auto) 81.9 %; Ovalocytes 1+; Platelet Estimate Decreased (Normal); Polychromasia 1+
[2019-03-29] MEDS: FLUTICASONE/SALMETEROL 250/50 (ADVAIR) 14 PUFF/1 INHALER INH SCH ×2 (07:58→20:27)
[2019-03-29] MEDS: FERROUS SULFATE 325 MG TAB PO SCH (08:00)
[2019-03-29] MEDS: METOPROLOL TARTRATE 50 MG TAB PO SCH ×2 (08:00→20:28)
[2019-03-29] MEDS: FUROSEMIDE 40 MG in SYRINGE 0 ML IV SCH (08:00)
[2019-03-29] MEDS: PANTOprazole 40 MG TAB PO SCH (08:01)
[2019-03-29] MEDS: BACITRACIN OINT 15 GM TUBE EXT SCH (08:03)
[2019-03-29] MEDS: DOXYCYCLINE HYCLATE 100 MG in DEXTROSE 5% 100 ML IV SCH ×2 (08:44→20:31)
[2019-03-29] MEDS: INSULIN ASPART 100 UNITS/ML 3 ML PEN SC SCH ×4 (08:45→20:25)
--- NOTE | 2019-03-29 09:41 | Cardiology Progress Note ---
Date of Service March 29, 2019 Assessment & Plan (1) Chronic atrial fibrillation: (2) Tachycardia-bradycardia syndrome: (3) Diastolic CHF: (4) Venous stasis ulcers of both lower extremities: (5) COPD (chronic obstructive pulmonary disease): (6) Supratherapeutic INR: Rate control improving. Continue metoprolol 50 mg twice daily. Avoid IV AV kaiser blocking agents due to history of tachybradycardia syndrome with pacemaker extraction in the past. Repeat INR. Dose Coumadin pending review of result. Continue IV diuretic therapy. Follow daily weight, fluid balance, GFR and electrolytes. Sodium restriction advised. Antibiotics and treatment of COPD exacerbation as per primary service. Subjective Patient seen and examined at the bedside. Respiratory status improving. Lower extremity edema unchanged. Fluid balance negative approximately 3 L over the past 24 hours. Heart rate trending downward. Reports increased wheezing with activity. No orthopnea or paroxysmal nocturnal dyspnea. Offers no other concerns/complaints at this time. Review of Systems Review of Systems: All systems reviewed & are unremarkable except as noted in HPI & below Physical Exam Physical Exam: General: NAD, AAO x3, well nourished. Morbid obesity. HEENT: Normocephalic. Atraumatic. Conjunctiva pink, no scleral icterus. Neck: No carotid bruits, the carotid upstrokes are brisk. No JVD. No HJR Heart: Irregular rhythm, normal S1 and S2. No murmurs or rub appreciated. PMI is not displaced. No RV heave. Lungs: + Expiratory wheeze bilaterally. Scattered rhonchi. No rales. Abdomen: Normal bowel sounds. Soft. Nontender. No masses or organomegaly. No abdominal bruits. Extremities: 2+ bilateral pretibial edema with stasis changes and venous ulcers. Pulses: radial=2/4. Neuro: Cranial nerves grossly intact. No focal motor deficit. Results & Data Vital Signs (Past 12 Hours) Vital Signs Temp Pulse Pulse Resp BP BP Pulse Ox 03/29/19 08:00 37 C 75 22 127/77 96 03/29/19 07:10 98 H 03/29/19 07:06 19 94 03/29/19 04:35 36.4 C L 107 H 26 H 139/79 93 03/29/19 00:12 36.8 C 109 H 20 137/77 94 03/28/19 23:57 97 H 03/28/19 23:17 109 H 16 99 (1) Diastolic CHF Heart failure chronicity: acute on chronic Qualified Code(s): I50.33 - Acute on chronic diastolic (congestive) heart failure (2) COPD (chronic obstructive pulmonary disease) COPD type: COPD with acute exacerbation Qualified Code(s): J44.1 - Chronic obstructive pulmonary disease with (acute) exacerbation
[2019-03-29 11:05] LABS: Prothrombin Time 47.5 Seconds (9.0-12.0)
[2019-03-29 11:16] LABS: INR 5.2 (0.9-1.1)
--- NOTE | 2019-03-29 11:53 | Hospitalist Progress Note ---
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 Patient was started on BIPAP in the emergency room. Patient then transitioned to nasal cannula while speaking with hospitalist. There is some wheezing but patient able to carry conservation with BIPAP and then off BIPAP with nasal cannula. -Chest X ray does not suggest pneumonia and does not suggest acute volume overload 1. Cardiomegaly without overt pulmonary edema. 2. Bibasilar opacities suggest atelectasis. 3. Ill-defined right upper lung opacity may be artifactual secondary to device external to the patient. -may be COPD exacerbation vs CHF exacerb - cont. 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 -will repeat EKG and monitor on telemetry -continue statin -furosemide 20 mg q48 hours -patient has history of Tachy-job syndrome so will try to avoid excessive metoprolol beta blockade if possible -avoid hydralazine for now to avoid reflex tachycardia -hold coumadin for now because admission INR is 3.8, currently INR 5 -cardiology consulted, appreciate their input given complicated cardiac history (3) Chronic venous insufficiency: -small abrasions from chronic venous insufficiency -history of MSSA in prior history of surface wound cultures, repeat would culture -patient has multiple listed drug allergies but she is a poor historian and cannot confirm drug reactions or severity -will continue antibiotics as Doxycycline 100 mg IV BID while inpatient for Staph coverage -furosemide 20 mg q48 hours -PT/OT evaluation -may need cleary as placed in the ED as short term to avoid urine to legs -wound care q nursing shift, wound nursing (4) DM type 2 (diabetes mellitus, type 2): Diabetes type 2 with longterm current use of insulin -at home, patient reports that she takes aspart 10 units at breakfast and 12 units for lunch and 10 units for dinner -at home she also reports Lantus 15 units as twice a day instead of qHS as listed in medical records in the past -will check HBA1c -Lantus as 15 units qHS for now and place on sliding scale insulin and titrate up scheduled insulin based on glucose levels -continue lisinopril 40 mg daily DVT prophylaxis: INR is supratherapeutic so patient si already anticaogulated, hold coumadin for now, can resume coumadin when INR is 2 to 3 Full Code Status Patient's son [phone] Gtz will be following the patient as hospitalist starting on 03/29/19 Subjective Elderly female sitting up in the chair, in no acute distress. She denies any fevers, chills, chest pain, palpitations. She states she has occasional cough and occasionally she brings up a sputum. Review of Systems Review of Systems: All systems reviewed & are unremarkable except as noted in HPI & below Constitutional: no fever and no chills Respiratory: no cough and no dyspnea Cardiovascular: no chest pain and no palpitations Gastrointestinal: no abdominal pain, no nausea and no vomiting Physical Exam Physical Exam: Constitutional: Elderly obese female, sitting in the chair, in no acute distress Eyes: PERRL, conjunctivae normal, anicteric sclerae EOM intact bilaterally ENMT: external ear and nose normal, oropharynx normal Neck: normal visual inspection Respiratory: Auscultation: + mild wheezes b/l Cardiovascular: Rate/Rhythm: irregular, no murmurs Gastrointestinal (Abdomen): normal bowel sounds, soft, obese, nontender to palpation, no guarding Musculoskeletal: Head/Neck/Chest: normocephalic and head atraumatic Skin: bilateral lower extremity with scaly skin and abrasions and chronic discoloration from venous stasis Neurologic: PERRL, EOMI, accommodation nl, no face palsy, no dysarthria CN's II-XI intact bilaterally Psychiatric: A+Ox3, euthymic affect Results & Data Vital Signs (Past 12 Hours) Vital Signs Temp Pulse Pulse Resp BP BP Pulse Ox 03/29/19 11:39 36.6 C 95 H 22 134/78 97 03/29/19 08:00 37 C 75 22 127/77 96 03/29/19 07:10 98 H 03/29/19 07:06 19 94 03/29/19 04:35 36.4 C L 107 H 26 H 139/79 93 03/29/19 00:12 36.8 C 109 H 20 137/77 94 03/28/19 23:57 97 H Laboratory Results 03/29/19 03/29/19 03/29/19 Range/Units 11:25 10:35 07:33 WBC (4.8-10.8) K/uL RBC (4.2-5.4) M/uL Hgb (12.0-16.0) g/dL Hct (37-47) % MCV (80-100) fL MCH (25-34) pg MCHC (32-36) g/dL RDW Std Deviation (36.4-46.3) fL RDW Coeff of Silvana (11.5-14.5) % Plt Count (130-400) K/uL Immature Gran % (Auto) % Neut % (Auto) % Lymph % (Auto) % [place] % (Auto) % Eos % (Auto) % Baso % (Auto) % Immature Gran # (Auto) (0.00-0.02) K/uL Neut # (Auto) (1.4-6.5) K/uL Lymph # (Auto) (1.2-3.4) K/uL [place] # (Auto) (0.11-0.59) K/uL Eos # (Auto) (0-0.5) K/uL Baso # (Auto) (0-0.2) K/uL Platelet Estimate (Normal) Polychromasia Hypochromasia Ovalocytes ESR (0-21) mm/hr PT 47.5 H (9.0-12.0) Seconds INR 5.2 H (0.9-1.1) Sodium (136-145) mmol/L Potassium (3.5-5.1) mmol/L Chloride (98-107) mmol/L Carbon Dioxide (21-32) mmol/L Anion Gap (3-11) BUN (7-18) mg/dl Creatinine (0.6-1.2) mg/dl Est Cr Clr Drug Dosing ml/min Est GFR ( Amer) Est GFR (Non-Af Amer) BUN/Creatinine Ratio (10-20) Glucose (70-99) mg/dl POC Glucose 245 H 170 H (70-99) Estimat Average Glucose mg/dl Hemoglobin A1c (4.5-5.6) % Calcium (8.5-10.1) mg/dl Phosphorus (2.5-4.9) mg/dl Magnesium (1.8-2.4) mg/dl Total Bilirubin (0.2-1) mg/dl AST (15-37) U/L ALT (12-78) U/L Alkaline Phosphatase (45-117) U/L Troponin I (0-0.045) ng/ml C-Reactive Protein Total Protein (6.4-8.2) gm/dl Albumin (3.4-5.0) gm/dl Globulin (2.5-4.0) gm/dl Albumin/Globulin Ratio (0.9-2) Procalcitonin (0-0.5) ng/ml TSH (0.300-4.500) uIu/ml Urine Color Urine Appearance (Clear) Urine pH (4.5-7.5) Ur Specific [place] (1.000-1.030) Urine Protein (Negative) Urine Glucose (UA) (Negative) Urine Ketones (Negative) Urine Blood (Negative) Urine Nitrite (Negative) Urine Bilirubin (Negative) Urine Urobilinogen (Negative) Ur Leukocyte Esterase (Negative) Urine WBC (Auto) (0-5) /hpf Urine RBC (Auto) (0-4) /hpf U Hyaline Cast (Auto) (0-5) /lpf U Epithel Cells (Auto) (0-5) /lpf Urine Bacteria (Auto) (Negative) 03/29/19 03/29/19 03/28/19 Range/Units 06:36 06:36 20:20 WBC 6.56 (4.8-10.8) K/uL RBC 4.32 (4.2-5.4) M/uL Hgb 10.2 L (12.0-16.0) g/dL Hct 36.2 L (37-47) % MCV 83.8 (80-100) fL MCH 23.6 L (25-34) pg MCHC 28.2 L (32-36) g/dL RDW Std Deviation 57.6 H (36.4-46.3) fL RDW Coeff of Silvana 18.7 H (11.5-14.5) % Plt Count 118 L (130-400) K/uL Immature Gran % (Auto) 0.2 % Neut % (Auto) 81.9 % Lymph % (Auto) 10.8 % [place] % (Auto) 6.9 % Eos % (Auto) 0.0 % Baso % (Auto) 0.2 % Immature Gran # (Auto) 0.01 (0.00-0.02) K/uL Neut # (Auto) 5.38 (1.4-6.5) K/uL Lymph # (Auto) 0.71 L (1.2-3.4) K/uL [place] # (Auto) 0.45 (0.11-0.59) K/uL Eos # (Auto) 0.00 (0-0.5) K/uL Baso # (Auto) 0.01 (0-0.2) K/uL Platelet Estimate Decreased L (Normal) Polychromasia 1+ Hypochromasia Present Ovalocytes 1+ ESR (0-21) mm/hr PT (9.0-12.0) Seconds INR (0.9-1.1) Sodium 141 (136-145) mmol/L Potassium 4.4 (3.5-5.1) mmol/L Chloride 105 (98-107) mmol/L Carbon Dioxide 33 H (21-32) mmol/L Anion Gap 3.0 (3-11) BUN 27 H (7-18) mg/dl Creatinine 1.13 (0.6-1.2) mg/dl Est Cr Clr Drug Dosing 54.6 ml/min Est GFR ( Amer) 54.3 Est GFR (Non-Af Amer) 46.8 BUN/Creatinine Ratio 24.3 H (10-20) Glucose 166 H (70-99) mg/dl POC Glucose 296 H (70-99) Estimat Average Glucose mg/dl Hemoglobin A1c (4.5-5.6) % Calcium 8.7 (8.5-10.1) mg/dl Phosphorus (2.5-4.9) mg/dl Magnesium (1.8-2.4) mg/dl Total Bilirubin 0.5 (0.2-1) mg/dl AST 12 L (15-37) U/L ALT 16 (12-78) U/L Alkaline Phosphatase 92 (45-117) U/L Troponin I (0-0.045) ng/ml C-Reactive Protein Total Protein 6.3 L (6.4-8.2) gm/dl Albumin 2.9 L (3.4-5.0) gm/dl Globulin 3.4 (2.5-4.0) gm/dl Albumin/Globulin Ratio 0.9 (0.9-2) Procalcitonin (0-0.5) ng/ml TSH (0.300-4.500) uIu/ml Urine Color Urine Appearance (Clear) Urine pH (4.5-7.5) Ur Specific [place] (1.000-1.030) Urine Protein (Negative) Urine Glucose (UA) (Negative) Urine Ketones (Negative) Urine Blood (Negative) Urine Nitrite (Negative) Urine Bilirubin (Negative) Urine Urobilinogen (Negative) Ur Leukocyte Esterase (Negative) Urine WBC (Auto) (0-5) /hpf Urine RBC (Auto) (0-4) /hpf U Hyaline Cast (Auto) (0-5) /lpf U Epithel Cells (Auto) (0-5) /lpf Urine Bacteria (Auto) (Negative) 03/28/19 03/28/19 03/28/19 Range/Units 20:20 16:12 14:24 WBC (4.8-10.8) K/uL RBC (4.2-5.4) M/uL Hgb (12.0-16.0) g/dL Hct (37-47) % MCV (80-100) fL MCH (25-34) pg MCHC (32-36) g/dL RDW Std Deviation (36.4-46.3) fL RDW Coeff of Silvana (11.5-14.5) % Plt Count (130-400) K/uL Immature Gran % (Auto) % Neut % (Auto) % Lymph % (Auto) % [place] % (Auto) % Eos % (Auto) % Baso % (Auto) % Immature Gran # (Auto) (0.00-0.02) K/uL Neut # (Auto) (1.4-6.5) K/uL Lymph # (Auto) (1.2-3.4) K/uL [place] # (Auto) (0.11-0.59) K/uL Eos # (Auto) (0-0.5) K/uL Baso # (Auto) (0-0.2) K/uL Platelet Estimate (Normal) Polychromasia Hypochromasia Ovalocytes ESR (0-21) mm/hr PT (9.0-12.0) Seconds INR (0.9-1.1) Sodium (136-145) mmol/L Potassium (3.5-5.1) mmol/L Chloride (98-107) mmol/L Carbon Dioxide (21-32) mmol/L Anion Gap (3-11) BUN (7-18) mg/dl Creatinine (0.6-1.2) mg/dl Est Cr Clr Drug Dosing ml/min Est GFR ( Amer) Est GFR (Non-Af Amer) BUN/Creatinine Ratio (10-20) Glucose (70-99) mg/dl POC Glucose 318 H* 283 H 187 H (70-99) Estimat Average Glucose mg/dl Hemoglobin A1c (4.5-5.6) % Calcium (8.5-10.1) mg/dl Phosphorus (2.5-4.9) mg/dl Magnesium (1.8-2.4) mg/dl Total Bilirubin (0.2-1) mg/dl AST (15-37) U/L ALT (12-78) U/L Alkaline Phosphatase (45-117) U/L Troponin I (0-0.045) ng/ml C-Reactive Protein Total Protein (6.4-8.2) gm/dl Albumin (3.4-5.0) gm/dl Globulin (2.5-4.0) gm/dl Albumin/Globulin Ratio (0.9-2) Procalcitonin (0-0.5) ng/ml TSH (0.300-4.500) uIu/ml Urine Color Urine Appearance (Clear) Urine pH (4.5-7.5) Ur Specific [place] (1.000-1.030) Urine Protein (Negative) Urine Glucose (UA) (Negative) Urine Ketones (Negative) Urine Blood (Negative) Urine Nitrite (Negative) Urine Bilirubin (Negative) Urine Urobilinogen (Negative) Ur Leukocyte Esterase (Negative) Urine WBC (Auto) (0-5) /hpf Urine RBC (Auto) (0-4) /hpf U Hyaline Cast (Auto) (0-5) /lpf U Epithel Cells (Auto) (0-5) /lpf Urine Bacteria (Auto) (Negative) 03/28/19 03/28/19 03/28/19 Range/Units 09:54 09:54 09:54 WBC (4.8-10.8) K/uL RBC (4.2-5.4) M/uL Hgb (12.0-16.0) g/dL Hct (37-47) % MCV (80-100) fL MCH (25-34) pg MCHC (32-36) g/dL RDW Std Deviation (36.4-46.3) fL RDW Coeff of Silvana (11.5-14.5) % Plt Count (130-400) K/uL Immature Gran % (Auto) % Neut % (Auto) % Lymph % (Auto) % [place] % (Auto) % Eos % (Auto) % Baso % (Auto) % Immature Gran # (Auto) (0.00-0.02) K/uL Neut # (Auto) (1.4-6.5) K/uL Lymph # (Auto) (1.2-3.4) K/uL [place] # (Auto) (0.11-0.59) K/uL Eos # (Auto) (0-0.5) K/uL Baso # (Auto) (0-0.2) K/uL Platelet Estimate (Normal) Polychromasia Hypochromasia Ovalocytes ESR (0-21) mm/hr PT (9.0-12.0) Seconds INR (0.9-1.1) Sodium (136-145) mmol/L Potassium (3.5-5.1) mmol/L Chloride (98-107) mmol/L Carbon Dioxide (21-32) mmol/L Anion Gap (3-11) BUN (7-18) mg/dl Creatinine (0.6-1.2) mg/dl Est Cr Clr Drug Dosing ml/min Est GFR ( Amer) Est GFR (Non-Af Amer) BUN/Creatinine Ratio (10-20) Glucose (70-99) mg/dl POC Glucose (70-99) Estimat Average Glucose 131 mg/dl Hemoglobin A1c 6.2 H (4.5-5.6) % Calcium (8.5-10.1) mg/dl Phosphorus 2.4 L (2.5-4.9) mg/dl Magnesium 1.9 (1.8-2.4) mg/dl Total Bilirubin (0.2-1) mg/dl AST (15-37) U/L ALT (12-78) U/L Alkaline Phosphatase (45-117) U/L Troponin I < 0.015 (0-0.045) ng/ml C-Reactive Protein 0.30 H Total Protein (6.4-8.2) gm/dl Albumin (3.4-5.0) gm/dl Globulin (2.5-4.0) gm/dl Albumin/Globulin Ratio (0.9-2) Procalcitonin < 0.05 (0-0.5) ng/ml TSH 1.580 (0.300-4.500) uIu/ml Urine Color Urine Appearance (Clear) Urine pH (4.5-7.5) Ur Specific [place] (1.000-1.030) Urine Protein (Negative) Urine Glucose (UA) (Negative) Urine Ketones (Negative) Urine Blood (Negative) Urine Nitrite (Negative) Urine Bilirubin (Negative) Urine Urobilinogen (Negative) Ur Leukocyte Esterase (Negative) Urine WBC (Auto) (0-5) /hpf Urine RBC (Auto) (0-4) /hpf U Hyaline Cast (Auto) (0-5) /lpf U Epithel Cells (Auto) (0-5) /lpf Urine Bacteria (Auto) (Negative) 03/28/19 03/28/19 03/28/19 Range/Units 09:54 09:54 09:48 WBC (4.8-10.8) K/uL RBC (4.2-5.4) M/uL Hgb (12.0-16.0) g/dL Hct (37-47) % MCV (80-100) fL MCH (25-34) pg MCHC (32-36) g/dL RDW Std Deviation (36.4-46.3) fL RDW Coeff of Silvana (11.5-14.5) % Plt Count (130-400) K/uL Immature Gran % (Auto) % Neut % (Auto) % Lymph % (Auto) % [place] % (Auto) % Eos % (Auto) % Baso % (Auto) % Immature Gran # (Auto) (0.00-0.02) K/uL Neut # (Auto) (1.4-6.5) K/uL Lymph # (Auto) (1.2-3.4) K/uL [place] # (Auto) (0.11-0.59) K/uL Eos # (Auto) (0-0.5) K/uL Baso # (Auto) (0-0.2) K/uL Platelet Estimate (Normal) Polychromasia Hypochromasia Ovalocytes ESR 48 H (0-21) mm/hr PT (9.0-12.0) Seconds INR (0.9-1.1) Sodium (136-145) mmol/L Potassium (3.5-5.1) mmol/L Chloride (98-107) mmol/L Carbon Dioxide (21-32) mmol/L Anion Gap (3-11) BUN (7-18) mg/dl Creatinine (0.6-1.2) mg/dl Est Cr Clr Drug Dosing ml/min Est GFR ( Amer) Est GFR (Non-Af Amer) BUN/Creatinine Ratio (10-20) Glucose (70-99) mg/dl POC Glucose (70-99) Estimat Average Glucose mg/dl Hemoglobin A1c (4.5-5.6) % Calcium (8.5-10.1) mg/dl Phosphorus (2.5-4.9) mg/dl Magnesium (1.8-2.4) mg/dl Total Bilirubin (0.2-1) mg/dl AST (15-37) U/L ALT (12-78) U/L Alkaline Phosphatase (45-117) U/L Troponin I (0-0.045) ng/ml C-Reactive Protein Cancelled Total Protein (6.4-8.2) gm/dl Albumin (3.4-5.0) gm/dl Globulin (2.5-4.0) gm/dl Albumin/Globulin Ratio (0.9-2) Procalcitonin (0-0.5) ng/ml TSH (0.300-4.500) uIu/ml Urine Color Dark Yellow Urine Appearance Clear (Clear) Urine pH 5.5 (4.5-7.5) Ur Specific [place] 1.018 (1.000-1.030) Urine Protein Trace H (Negative) Urine Glucose (UA) Negative (Negative) Urine Ketones Negative (Negative) Urine Blood Negative (Negative) Urine Nitrite Negative (Negative) Urine Bilirubin Negative (Negative) Urine Urobilinogen Negative (Negative) Ur Leukocyte Esterase Negative (Negative) Urine WBC (Auto) 0 (0-5) /hpf Urine RBC (Auto) 0-4 (0-4) /hpf U Hyaline Cast (Auto) 1-5 (0-5) /lpf U Epithel Cells (Auto) >30 H (0-5) /lpf Urine Bacteria (Auto) Negative (Negative) Medications Administered Current Inpatient Medications Dextrose (Dextrose 50%) 25 - 50 ml IV UD PRN; Protocol PRN Reason: Hypoglycemia Protocol Stop: 04/27/19 12:18 Ferrous Sulfate (Feosol) 325 mg PO QAM ERIC Stop: 04/28/19 08:59 Last Admin: 03/29/19 08:00 Dose: 325 mg Documented by: Glucagon (Glucagen) 1 mg SQ UD PRN; Protocol PRN Reason: Hypoglycemia Protocol Stop: 04/27/19 12:18 Glucose (Glucose 40%) 15 - 30 gm PO UD PRN; Protocol PRN Reason: Hypoglycemia Protocol Stop: 04/27/19 12:18 Glucose (Dex4 Glucose) 4 - 8 tabs PO UD PRN; Protocol PRN Reason: Hypoglycemia Protocol Stop: 04/27/19 12:18 Doxycycline Hyclate 100 mg/ (Dextrose) 110 mls @ 50 mls/hr IV BID ERIC Stop: 03/30/19 20:59 Last Infusion: 03/29/19 11:23 Dose: Infused Documented by: Furosemide 40 mg/ Syringe 4 mls @ 4 mls/min IV DAILY ERIC Stop: 04/28/19 08:59 Last Admin: 03/29/19 08:00 Dose: 4 mls/min Documented by: Insulin Aspart (Novolog Flexpen) 0 units SC ACHS ERIC Stop: 04/27/19 16:29 Last Admin: 03/29/19 08:45 Dose: 2 units Documented by: Insulin Glargine (Lantus Solostar Pen) 15 units SQ HS [facility] Stop: 04/27/19 20:59 Last Admin: 03/28/19 20:42 Dose: 15 units Documented by: Levalbuterol HCl (Xopenex 1.25mg/3ml Neb) 1.25 mg NEB Q8R ERIC Stop: 04/27/19 14:59 Last Admin: 03/29/19 07:05 Dose: 1.25 mg Documented by: Lisinopril (Zestril) 40 mg PO HS ERIC Stop: 04/27/19 20:59 Last Admin: 03/28/19 20:40 Dose: 40 mg Documented by: Metoprolol Tartrate (Lopressor) 50 mg PO BID [facility] Stop: 04/28/19 08:59 Last Admin: 03/29/19 08:00 Dose: 50 mg Documented by: Miscellaneous (Carbohydrates For Hypoglycemia) 15 - 30 gm PO UD PRN PRN Reason: Hypoglycemia Protocol Stop: 04/27/19 12:18 Pantoprazole Sodium (Protonix) 40 mg PO QAM ERIC Stop: 04/01/19 08:59 Last Admin: 03/29/19 08:01 Dose: 40 mg Documented by: Fluticasone/Salmeterol (Advair Diskus 250/50) 1 puffs INH BID [facility] Stop: 04/27/19 20:59 Last Admin: 03/29/19 07:58 Dose: 1 puffs Documented by: Simvastatin (Zocor) 20 mg PO HS [facility] Stop: 04/27/19 20:59 Last Admin: 03/28/19 20:40 Dose: 20 mg Documented by: (1) COPD (chronic obstructive pulmonary disease) COPD type: COPD with acute exacerbation Qualified Code(s): J44.1 - Chronic obstructive pulmonary disease with (acute) exacerbation
--- NOTE | 2019-03-29 12:58 | Emergency Department Note ---
Entered by Abhilash Omer acting as a scribe for History of Present Illness General Chief complaint: Respiratory Problems Stated complaint: breathing diff. Time Seen by Provider: 03/28/19 09:02 Source: patient History of Present Illness Provider complaint: Shortness of breath Onset (ago): week(s) 1 Location: chest Severity: similar to prior episodes Pain Consistency: + other (Worsening) Exacerbated By: + other (Exertion) Associated symptoms: + cough; no chest pain and no fever/chills The patient is a 78 year old female who presents to the Emergency Room with complaints of worsening shortness of breath that has been ongoing for the past week. The patient reports that the breathing difficulty has required her to wear oxygen at all times instead of just at night like she does at baseline. The patient also has a productive cough with yellow sputum. The patient adds that her symptoms become worse with exertion. The patient received 125mg of Solumedrol, an albuterol neb and a duoneb en route to the ED with only slight improvement of symptoms. The patient has a history of COPD and CAD. Home Medications Home Medications Medication Instructions Recorded Confirmed Type hydralazine 50 mg PO BID 05/08/18 03/28/19 History lisinopril 40 mg PO HS 05/08/18 03/28/19 History magnesium oxide 400 mg PO BIDM 05/08/18 03/28/19 History omeprazole 20 mg PO HS 05/08/18 03/28/19 History simvastatin 20 mg PO HS 05/08/18 03/28/19 History ferrous sulfate [iron] 325 mg PO QAM 07/30/18 03/28/19 History furosemide 20 mg PO Q2D 07/30/18 03/28/19 History insulin aspart U- 100 100 unit/mL 12 units SQ QDL ml 10/03/18 03/28/19 History subcutaneous solution insulin glargine (U-100) 100 15 units SUBCUT HS ml 10/03/18 03/28/19 History unit/mL (3 mL) subcutaneous pen ipratropium 20 mcg-albuterol 100 1 puffs INH QID 10/03/18 03/28/19 History mcg/actuation mist for inhalation warfarin 2 mg tablet 2 mg PO QDD 10/03/18 03/28/19 History doxycycline hyclate 100 mg PO BID 03/28/19 03/28/19 History fluticasone propion-salmeterol 1 inh INHALATION BID 03/28/19 03/28/19 History [Wixela Inhub] insulin aspart U-100 [Novolog 10 unit SUBCUT BIDM 03/28/19 03/28/19 History U-100 Insulin aspart] Allergies Allergy/AdvReac Type Severity Reaction Status Date / Time Cephalosporins Allergy Unknown Unknown Verified 03/28/19 10:45 Cipro Allergy Unknown RASH Verified 06/10/16 18:14 ciprofloxacin Allergy Unknown RASH Verified 03/28/19 10:45 clindamycin Allergy Unknown RASH Verified 03/28/19 10:45 erythromycin base Allergy Unknown Unknown Verified 03/28/19 10:45 metformin Allergy Unknown EDEMA FACE Unverified 03/28/19 10:45 AND HANDS, ITCHY Penicillins Allergy Unknown Unknown Verified 03/28/19 10:45 Sulfa (Sulfonamide Allergy Unknown . Verified 03/28/19 10:45 Antibiotics) Past Med/Surg History Medical History DM type 2 (diabetes mellitus, type 2) (Chronic) COPD (chronic obstructive pulmonary disease) (Chronic) Dyslipidemia (Chronic) Diastolic CHF (Chronic) CAD (coronary artery disease) (Chronic) Osteoarthritis (Chronic) Nocturnal hypoxemia (Chronic) A-fib (Chronic) CHF (congestive heart failure) (Chronic) COPD (chronic obstructive pulmonary disease) (Chronic) Type 2 diabetes mellitus (Chronic) Surgical History History of hysterectomy (Chronic) S/P adenoidectomy (Chronic) History of cataract surgery (Chronic) History of total left knee replacement (Chronic) Family History Other No pertinent family history Social History Preferred Language: Frisian Communication Ability: Effective Visual Impairment: No Limitations Hearing Ability: Normal Health Record Technician Required: No Beliefs That Will Affect Care: None marital status: Single Current Living Situation: Alone Current Living Situation Comment: Lives alone. current occupational status: retired Other Information That Helps Us Care for You: No Feels Safe at Home: Yes Safety Concerns: Feels Safe At This Time Smoking Status: Former smoker Tobacco Type: cigarettes ; Second Hand Exposure: Yes ; Hx Alcohol Use: No Hx Substance Use: No Review of Systems See HPI for pertinent positives & negatives. and A total of 10 systems reviewed and were otherwise negative Physical Exam Vital Signs Vital Signs - 24 hr 03/28/19 08:57 03/28/19 08:59 03/28/19 09:02 Temperature 97.9 F Temperature Source Oral Sepsis Recent Fever Within 48 Hours No Sepsis New/Unexplained Change in Mental Status No Sepsis Action Taken by Nursing No Action Required Pulse Rate 79 79 94 H Pulse Rate [Finger] Pulse Rate from SpO2 Sensor 85 105 H Respiratory Rate 28 H 21 28 H Respiratory Effort / Characteristics Respiratory Depth Blood Pressure 116/69 116/69 Blood Pressure [Right Arm] Blood Pressure Mean 84 84 Blood Pressure Mean [Right Arm] Pulse Oximetry 88 L 89 L 95 Oxygen Delivery Method Room Air Oxygen Flow Rate Fraction of Inspired Oxygen 03/28/19 09:05 03/28/19 09:18 03/28/19 09:26 Temperature Temperature Source Sepsis Recent Fever Within 48 Hours Sepsis New/Unexplained Change in Mental Status Sepsis Action Taken by Nursing Pulse Rate 72 Pulse Rate [Finger] Pulse Rate from SpO2 Sensor Respiratory Rate 26 H Respiratory Effort / Characteristics Labored Spontaneous Respiratory Depth Normal Blood Pressure Blood Pressure [Right Arm] Blood Pressure Mean Blood Pressure Mean [Right Arm] Pulse Oximetry 94 94 100 Oxygen Delivery Method Nasal Cannula Nasal Cannula BiPAP Oxygen Flow Rate 2 2 Fraction of Inspired Oxygen 40 03/28/19 09:47 03/28/19 09:52 03/28/19 10:00 Temperature Temperature Source Sepsis Recent Fever Within 48 Hours Sepsis New/Unexplained Change in Mental Status Sepsis Action Taken by Nursing Pulse Rate 77 85 Pulse Rate [Finger] 86 Pulse Rate from SpO2 Sensor 91 H 89 Respiratory Rate 30 H 20 28 H Respiratory Effort / Characteristics Respiratory Depth Blood Pressure 140/61 Blood Pressure [Right Arm] 140/61 Blood Pressure Mean 87 Blood Pressure Mean [Right Arm] 87 Pulse Oximetry 98 100 98 Oxygen Delivery Method BiPAP Oxygen Flow Rate Fraction of Inspired Oxygen 03/28/19 11:00 03/28/19 11:34 03/28/19 12:00 Temperature Temperature Source Sepsis Recent Fever Within 48 Hours Sepsis New/Unexplained Change in Mental Status Sepsis Action Taken by Nursing Pulse Rate 78 101 H 105 H Pulse Rate [Finger] Pulse Rate from SpO2 Sensor 109 H 111 H 106 H Respiratory Rate 26 H 21 25 H Respiratory Effort / Characteristics Respiratory Depth Blood Pressure 148/84 H Blood Pressure [Right Arm] Blood Pressure Mean 105 Blood Pressure Mean [Right Arm] Pulse Oximetry 95 97 98 Oxygen Delivery Method BiPAP Oxygen Flow Rate Fraction of Inspired Oxygen 03/28/19 12:01 Temperature Temperature Source Sepsis Recent Fever Within 48 Hours Sepsis New/Unexplained Change in Mental Status Sepsis Action Taken by Nursing Pulse Rate 118 H Pulse Rate [Finger] Pulse Rate from SpO2 Sensor 105 H Respiratory Rate 20 Respiratory Effort / Characteristics Respiratory Depth Blood Pressure 123/76 Blood Pressure [Right Arm] Blood Pressure Mean 91 Blood Pressure Mean [Right Arm] Pulse Oximetry 94 Oxygen Delivery Method Oxygen Flow Rate Fraction of Inspired Oxygen GENERAL: Awake, alert, well-appearing, in acute distress HENT: Normocephalic, atraumatic. Oropharynx unremarkable. EYES: Normal conjunctiva. Sclera non-icteric. NECK: Supple. No nuchal rigidity. FROM. No masses. RESPIRATORY: Wheezing bilaterally. No rales. CARDIAC: Normal rate. Normal rhythm. No murmurs. No rubs. Extremities warm and well perfused. Pulses equal. No JVD. GI: Soft, non-distended. No tenderness to palpation. No rebound or guarding. No masses. RECTAL: Deferred. MUSCULOSKELETAL: Atraumatic. Chest examination reveals no tenderness. The back is symmetrical on inspection without obvious abnormality. There is no CVA tenderness to palpation. No joint edema. LOWER EXTREMITIES: Calves are equal size bilaterally and non-tender. No edema. No discoloration. NEURO: Normal sensorium. No sensory or motor deficits noted. Course 09: Past medical records reviewed. The patient was evaluated in room B10, and a complete history and physical examination were performed. 1129: I spoke to Estrellabhargav Perez [facility] PAC under Dr. Tong Saleem about the patient's case. They are going to accept the patient for further evaluation. 1143: I reevaluated the patient and she is resting in bed. I updated her on results as well as the treatment plan and she is agreeable. Consultations Consultation #1: [facility] PAC under Dr. Tong Saleem about the patient's case. They are going to accept the patient for further evaluation. Time: 11:29 Administered Medications Ferrous Sulfate (Feosol) 325 mg PO [facility]: 04/28/19 08:59 Last Admin: 03/29/19 08:00 Dose: 325 mg Documented by: [id number] Doxycycline Hyclate 100 mg/ (Dextrose) 110 mls @ 50 mls/hr IV BID ERIC Stop: 03/30/19 20:59 Last Infusion: 03/29/19 11:23 Dose: 0 mls/hr Documented by: [id number] Admin: 03/29/19 08:44 Dose: 50 mls/hr Documented by: [id number] Infusion: 03/28/19 23:38 Dose: 0 mls/hr Documented by: [id number] Admin: 03/28/19 20:47 Dose: 50 mls/hr Documented by: [id number] Furosemide 40 mg/ Syringe 4 mls @ 4 mls/min IV DAILY ERIC Stop: 04/28/19 08:59 Last Admin: 03/29/19 08:00 Dose: 4 mls/min Documented by: [id number] Insulin Aspart (Novolog Flexpen) 0 units SC ACHS [facility] Stop: 04/27/19 16:29 Last Admin: 03/29/19 08:45 Dose: 2 units Documented by: [id number] Cosigned by: [id number] Admin: 03/28/19 20:43 Dose: 8 units Documented by: [id number] Cosigned by: [id number] Admin: 03/28/19 17:31 Dose: 8 units Documented by: [id number] Cosigned by: [id number] Insulin Glargine (Lantus Solostar Pen) 15 units SQ HS [facility] Stop: 04/27/19 20:59 Last Admin: 03/28/19 20:42 Dose: 15 units Documented by: [id number] Cosigned by: [id number] Levalbuterol HCl (Xopenex 1.25mg/3ml Neb) 1.25 mg NEB Q8R [facility] Stop: 04/27/19 14:59 Last Admin: 03/29/19 07:05 Dose: 1.25 mg Documented by: [id number] Admin: 03/28/19 23:17 Dose: 1.25 mg Documented by: [id number] Admin: 03/28/19 15:44 Dose: 1.25 mg Documented by: [id number] Lisinopril (Zestril) 40 mg PO HS [facility] Stop: 04/27/19 20:59 Last Admin: 03/28/19 20:40 Dose: 40 mg Documented by: [id number] Metoprolol Tartrate (Lopressor) 50 mg PO BID ERIC Stop: 04/28/19 08:59 Last Admin: 03/29/19 08:00 Dose: 50 mg Documented by: [id number] Pantoprazole Sodium (Protonix) 40 mg PO QAM ERIC Stop: 04/01/19 08:59 Last Admin: 03/29/19 08:01 Dose: 40 mg Documented by: [id number] Fluticasone/Salmeterol (Advair Diskus 250/50) 1 puffs INH BID ERIC Stop: 04/27/19 20:59 Last Admin: 03/29/19 07:58 Dose: 1 puffs Documented by: [id number] Admin: 03/28/19 20:40 Dose: 1 puffs Documented by: [id number] Simvastatin (Zocor) 20 mg PO HS ERIC Stop: 04/27/19 20:59 Last Admin: 03/28/19 20:40 Dose: 20 mg Documented by: [id number] Discontinued Medications Albuterol (Duoneb) 12 ml NEB ONE ONE Stop: 03/28/19 09:13 Last Admin: 03/28/19 09:26 Dose: 12 ml Documented by: [id number] Bacitracin (Bacitracin) 1 appln EXT DAILY [facility] Stop: 04/27/19 14:29 Last Admin: 03/29/19 08:03 Dose: Not Given Documented by: [id number] Admin: 03/28/19 15:30 Dose: Not Given Documented by: [id number] Furosemide (Lasix) 40 mg IV NOW STA Stop: 03/28/19 09:13 Last Admin: 03/28/19 09:46 Dose: 40 mg Documented by: [id number] Furosemide (Lasix) 20 mg PO Q2D@0900 ERIC Stop: 04/27/19 14:29 Last Admin: 03/28/19 15:30 Dose: 20 mg Documented by: [id number] Magnesium Sulfate/Dextrose (Magnesium Sulfate / D5w) 1 gm in 100 mls @ 100 mls/hr IV ONE ONE Stop: 03/28/19 10:11 Last Infusion: 03/28/19 09:58 Dose: 0 mls/hr Documented by: [id number] Admin: 03/28/19 09:28 Dose: 100 mls/hr Documented by: [id number] Doxycycline Hyclate 100 mg/ (Dextrose) 110 mls @ 50 mls/hr IV 1430 ONE Stop: 03/28/19 16:41 Last Infusion: 03/28/19 18:54 Dose: 0 mls/hr Documented by: [id number] Admin: 03/28/19 15:30 Dose: 50 mls/hr Documented by: [id number] Metoprolol Tartrate (Lopressor) 25 mg PO NOW STA Stop: 03/28/19 15:17 Last Admin: 03/28/19 16:40 Dose: 25 mg Documented by: [id number] Metoprolol Tartrate (Lopressor) 25 mg PO TODAY@2100 ERIC Stop: 03/28/19 21:01 Last Admin: 03/28/19 20:40 Dose: 25 mg Documented by: [id number] Medical Decision Making Differential Diagnosis Differential diagnoses includes but is not limited to pneumonia, bronchitis, COPD/Asthma exacerbation, pneumothorax, pulmonary embolism, congestive heart failure, acute coronary syndrome, amongst others. Medical Records Attestation: I reviewed the patient's medical records. Home Medications Current Medication List: was personally reviewed by me Laboratory Data Attestation: I reviewed the patient's lab results. Result diagrams: 03/29/19 06:36 03/29/19 06:36 Lab Results 03/28/19 03/28/19 03/28/19 Range/Units 09:48 09:54 09:54 WBC 5.78 (4.8-10.8) K/uL RBC 4.32 (4.2-5.4) M/uL Hgb 10.2 L (12.0-16.0) g/dL Hct 37.4 (37-47) % MCV 86.6 (80-100) fL MCH 23.6 L (25-34) pg MCHC 27.3 L (32-36) g/dL RDW Std Deviation 60.5 H (36.4-46.3) fL RDW Coeff of Silvana 19.0 H (11.5-14.5) % Plt Count 128 L (130-400) K/uL Immature Gran % (Auto) 0.3 % Neut % (Auto) 80.7 % Lymph % (Auto) 12.8 % [place] % (Auto) 4.5 % Eos % (Auto) 1.4 % Baso % (Auto) 0.3 % Immature Gran # (Auto) 0.02 (0.00-0.02) K/uL Neut # (Auto) 4.66 (1.4-6.5) K/uL Lymph # (Auto) 0.74 L (1.2-3.4) K/uL [place] # (Auto) 0.26 (0.11-0.59) K/uL Eos # (Auto) 0.08 (0-0.5) K/uL Baso # (Auto) 0.02 (0-0.2) K/uL Platelet Estimate Decreased L (Normal) Hypochromasia Present Tear Drop Cells 1+ Schistocytes 1+ ESR (0-21) mm/hr PT 35.6 H (9.0-12.0) Seconds INR 3.8 H (0.9-1.1) Sodium (136-145) mmol/L Potassium (3.5-5.1) mmol/L Chloride (98-107) mmol/L Carbon Dioxide (21-32) mmol/L Anion Gap (3-11) BUN (7-18) mg/dl Creatinine (0.6-1.2) mg/dl Est Cr Clr Drug Dosing ml/min Est GFR ( Amer) Est GFR (Non-Af Amer) BUN/Creatinine Ratio (10-20) Glucose (70-99) mg/dl Estimat Average Glucose mg/dl Hemoglobin A1c (4.5-5.6) % Calcium (8.5-10.1) mg/dl Phosphorus (2.5-4.9) mg/dl Magnesium (1.8-2.4) mg/dl Total Bilirubin (0.2-1) mg/dl AST (15-37) U/L ALT (12-78) U/L Alkaline Phosphatase (45-117) U/L Total Creatine Kinase (26-192) U/L CK-MB (CK-2) (0.5-3.6) ng/ml CK/CKMB % Calc (0-3.0) Troponin I (0-0.045) ng/ml C-Reactive Protein NT-Pro-B Natriuret Pep (0-1800) pg/ml Total Protein (6.4-8.2) gm/dl Albumin (3.4-5.0) gm/dl Globulin (2.5-4.0) gm/dl Albumin/Globulin Ratio (0.9-2) Lipase (73-393) U/L Procalcitonin (0-0.5) ng/ml TSH (0.300-4.500) uIu/ml Urine Color Dark Yellow Urine Appearance Clear (Clear) Urine pH 5.5 (4.5-7.5) Ur Specific [place] 1.018 (1.000-1.030) Urine Protein Trace H (Negative) Urine Glucose (UA) Negative (Negative) Urine Ketones Negative (Negative) Urine Blood Negative (Negative) Urine Nitrite Negative (Negative) Urine Bilirubin Negative (Negative) Urine Urobilinogen Negative (Negative) Ur Leukocyte Esterase Negative (Negative) Urine WBC (Auto) 0 (0-5) /hpf Urine RBC (Auto) 0-4 (0-4) /hpf U Hyaline Cast (Auto) 1-5 (0-5) /lpf U Epithel Cells (Auto) >30 H (0-5) /lpf Urine Bacteria (Auto) Negative (Negative) 03/28/19 03/28/19 03/28/19 Range/Units 09:54 09:54 09:54 WBC (4.8-10.8) K/uL RBC (4.2-5.4) M/uL Hgb (12.0-16.0) g/dL Hct (37-47) % MCV (80-100) fL MCH (25-34) pg MCHC (32-36) g/dL RDW Std Deviation (36.4-46.3) fL RDW Coeff of Silvana (11.5-14.5) % Plt Count (130-400) K/uL Immature Gran % (Auto) % Neut % (Auto) % Lymph % (Auto) % [place] % (Auto) % Eos % (Auto) % Baso % (Auto) % Immature Gran # (Auto) (0.00-0.02) K/uL Neut # (Auto) (1.4-6.5) K/uL Lymph # (Auto) (1.2-3.4) K/uL [place] # (Auto) (0.11-0.59) K/uL Eos # (Auto) (0-0.5) K/uL Baso # (Auto) (0-0.2) K/uL Platelet Estimate (Normal) Hypochromasia Tear Drop Cells Schistocytes ESR 48 H (0-21) mm/hr PT (9.0-12.0) Seconds INR (0.9-1.1) Sodium 142 (136-145) mmol/L Potassium 4.9 (3.5-5.1) mmol/L Chloride 108 H (98-107) mmol/L Carbon Dioxide 32 (21-32) mmol/L Anion Gap 2.0 L (3-11) BUN 27 H (7-18) mg/dl Creatinine 1.01 (0.6-1.2) mg/dl Est Cr Clr Drug Dosing 62.3 ml/min Est GFR ( Amer) 62.2 Est GFR (Non-Af Amer) 53.7 BUN/Creatinine Ratio 26.8 H (10-20) Glucose 171 H (70-99) mg/dl Estimat Average Glucose mg/dl Hemoglobin A1c (4.5-5.6) % Calcium 8.4 L (8.5-10.1) mg/dl Phosphorus (2.5-4.9) mg/dl Magnesium (1.8-2.4) mg/dl Total Bilirubin 0.4 (0.2-1) mg/dl AST 20 (15-37) U/L ALT 17 (12-78) U/L Alkaline Phosphatase 99 (45-117) U/L Total Creatine Kinase 47 (26-192) U/L CK-MB (CK-2) 2.3 (0.5-3.6) ng/ml CK/CKMB % Calc 4.9 H (0-3.0) Troponin I < 0.015 (0-0.045) ng/ml C-Reactive Protein Cancelled NT-Pro-B Natriuret Pep 1684 (0-1800) pg/ml Total Protein 6.8 (6.4-8.2) gm/dl Albumin 3.0 L (3.4-5.0) gm/dl Globulin 3.8 (2.5-4.0) gm/dl Albumin/Globulin Ratio 0.8 L (0.9-2) Lipase 212 (73-393) U/L Procalcitonin < 0.05 (0-0.5) ng/ml TSH (0.300-4.500) uIu/ml Urine Color Urine Appearance (Clear) Urine pH (4.5-7.5) Ur Specific [place] (1.000-1.030) Urine Protein (Negative) Urine Glucose (UA) (Negative) Urine Ketones (Negative) Urine Blood (Negative) Urine Nitrite (Negative) Urine Bilirubin (Negative) Urine Urobilinogen (Negative) Ur Leukocyte Esterase (Negative) Urine WBC (Auto) (0-5) /hpf Urine RBC (Auto) (0-4) /hpf U Hyaline Cast (Auto) (0-5) /lpf U Epithel Cells (Auto) (0-5) /lpf Urine Bacteria (Auto) (Negative) 03/28/19 03/28/19 Range/Units 09:54 09:54 WBC (4.8-10.8) K/uL RBC (4.2-5.4) M/uL Hgb (12.0-16.0) g/dL Hct (37-47) % MCV (80-100) fL MCH (25-34) pg MCHC (32-36) g/dL RDW Std Deviation (36.4-46.3) fL RDW Coeff of Silvana (11.5-14.5) % Plt Count (130-400) K/uL Immature Gran % (Auto) % Neut % (Auto) % Lymph % (Auto) % [place] % (Auto) % Eos % (Auto) % Baso % (Auto) % Immature Gran # (Auto) (0.00-0.02) K/uL Neut # (Auto) (1.4-6.5) K/uL Lymph # (Auto) (1.2-3.4) K/uL [place] # (Auto) (0.11-0.59) K/uL Eos # (Auto) (0-0.5) K/uL Baso # (Auto) (0-0.2) K/uL Platelet Estimate (Normal) Hypochromasia Tear Drop Cells Schistocytes ESR (0-21) mm/hr PT (9.0-12.0) Seconds INR (0.9-1.1) Sodium (136-145) mmol/L Potassium (3.5-5.1) mmol/L Chloride (98-107) mmol/L Carbon Dioxide (21-32) mmol/L Anion Gap (3-11) BUN (7-18) mg/dl Creatinine (0.6-1.2) mg/dl Est Cr Clr Drug Dosing ml/min Est GFR ( Amer) Est GFR (Non-Af Amer) BUN/Creatinine Ratio (10-20) Glucose (70-99) mg/dl Estimat Average Glucose 131 mg/dl Hemoglobin A1c 6.2 H (4.5-5.6) % Calcium (8.5-10.1) mg/dl Phosphorus 2.4 L (2.5-4.9) mg/dl Magnesium 1.9 (1.8-2.4) mg/dl Total Bilirubin (0.2-1) mg/dl AST (15-37) U/L ALT (12-78) U/L Alkaline Phosphatase (45-117) U/L Total Creatine Kinase (26-192) U/L CK-MB (CK-2) (0.5-3.6) ng/ml CK/CKMB % Calc (0-3.0) Troponin I < 0.015 (0-0.045) ng/ml C-Reactive Protein 0.30 H NT-Pro-B Natriuret Pep (0-1800) pg/ml Total Protein (6.4-8.2) gm/dl Albumin (3.4-5.0) gm/dl Globulin (2.5-4.0) gm/dl Albumin/Globulin Ratio (0.9-2) Lipase (73-393) U/L Procalcitonin (0-0.5) ng/ml TSH 1.580 (0.300-4.500) uIu/ml Urine Color Urine Appearance (Clear) Urine pH (4.5-7.5) Ur Specific [place] (1.000-1.030) Urine Protein (Negative) Urine Glucose (UA) (Negative) Urine Ketones (Negative) Urine Blood (Negative) Urine Nitrite (Negative) Urine Bilirubin (Negative) Urine Urobilinogen (Negative) Ur Leukocyte Esterase (Negative) Urine WBC (Auto) (0-5) /hpf Urine RBC (Auto) (0-4) /hpf U Hyaline Cast (Auto) (0-5) /lpf U Epithel Cells (Auto) (0-5) /lpf Urine Bacteria (Auto) (Negative) Imaging Data Radiologist's Impression: Radiology results as stated below per my review and the radiologist's interpretation: XR chest 1V portable HISTORY: 78 years-old Female Chest Pain acute atypical chest pain COMPARISON: Chest radiograph 08/08/2018 TECHNIQUE: Portable AP view of the chest FINDINGS: Cardiac silhouette is enlarged, unchanged. Calcified plaque of the thoracic aortic arch. Interval removal of the right-sided PICC. No pneumothorax, large pleural effusion or overt pulmonary edema. Mild linear subsegmental bibasilar opacities are unchanged suggestive of atelectasis. Ill-defined opacity of the right upper lung is likely secondary to device external to the patient. Degenerative changes of the shoulders and spine. IMPRESSION: 1. Cardiomegaly without overt pulmonary edema. 2. Bibasilar opacities suggest atelectasis. 3. Ill-defined right upper lung opacity may be artifactual secondary to device external to the patient. The above report was generated using voice recognition software. It may contain grammatical, syntax or spelling errors. Electronically signed by: Sanchez Francis M.D. 03/28/2019 10:11 AM ECG Data Attestation: I personally reviewed and interpreted this ECG as follows: Indication: + SOB/dyspnea Rate (beats per minute): 93 Rhythm: + atrial fibrillation ECG [place]: + Left axis deviation ECG ST segments: no ST depression and no ST elevation ECG Findings: + Other (QTC 492) Blood Pressure Blood Pressure Findings: Elevated blood pressure Blood Pressure Disposition: further management by hospitalist LEONARDO Narrative This is a 78-year-old female who presents emergency department complaining of shortness of breath. The patient was placed on BiPAP here in the emergency department. She has already received Solu-Medrol and was given an hour-long breathing treatment here in the emergency department. She was also placed on magnesium. She does not have an elevation in her troponin and her white blood cell count is 6. As the patient is still hypoxic and requiring BiPAP I did discuss the case with the hospitalist service who agreed to admit the patient. Patient was in agreement with the treatment plan. Impression & Plan COPD (chronic obstructive pulmonary disease), Supratherapeutic INR Discharge Plan Visit Data *Final* Discharge Date/Time: 03/28/19 14:00 Chief Complaint: Respiratory Problems Stated Complaint: breathing diff. ED Provider: Zeferino Lazaro Discharge Problem: COPD (chronic obstructive pulmonary disease), Supratherapeutic INR Patient Disposition: Admitted As Inpatient Discharge Instructions Interventions: ED Discharge Assessment Last Done: 03/28/19 14:00 The scribe's documentation has been prepared under my direction and personally reviewed by me in its entirety. I confirm that the note above accurately reflects all work, treatment, procedures, and medical decision making performed by me.
[2019-03-29] MEDS: INSULIN GLARGINE SOLOSTAR 100 UNITS/ML 3 ML PEN SQ SCH (20:26)
[2019-03-29] MEDS: lisinopriL 40 MG TAB PO SCH (20:27)
[2019-03-29] MEDS: SIMVASTATIN 20 MG TAB PO SCH (20:28)
[2019-03-30] MEDS: LEVALBUTEROL HCL 1.25 MG/3 ML NEB NEB SCH ×3 (06:51→23:06)
[2019-03-30] MEDS ORDERED: NYSTATIN POWDER 15GM BTL EXT PRN (07:10)
[2019-03-30 07:53] LABS: Hematocrit (blood only) 35.6 % (37-47); Mean Corpuscular Hemoglobin 23.8 pg (25-34); Mean Corpuscular Hgb Conc 28.1 g/dL (32-36); Mean Corpuscular Volume 84.6 fL (80-100); Platelet Count 139 K/uL (130-400); Platelet Estimate Normal (Normal); RDW Coefficient of Variation 18.6 % (11.5-14.5); RDW Standard Deviation 57.7 fL (36.4-46.3); Red Blood Count 4.21 M/uL (4.2-5.4); White Blood Count 7.17 K/uL (4.8-10.8)
[2019-03-30 07:58] LABS: Calcium 8.5 mg/dl (8.5-10.1); Creatinine Clr Calc Pharmacy 56.3 ml/min; Est GFR (African American) 56.7; Est GFR (Non-African American) 48.9; Potassium 4.2 mmol/L (3.5-5.1)
[2019-03-30] MEDS: PANTOprazole 40 MG TAB PO SCH (08:00)
[2019-03-30] MEDS: METOPROLOL TARTRATE 50 MG TAB PO SCH ×2 (08:00→20:50)
[2019-03-30] MEDS: FERROUS SULFATE 325 MG TAB PO SCH (08:01)
[2019-03-30] MEDS: FUROSEMIDE 40 MG in SYRINGE 0 ML IV SCH ×2 (08:01→16:10)
[2019-03-30] MEDS: FLUTICASONE/SALMETEROL 250/50 (ADVAIR) 14 PUFF/1 INHALER INH SCH ×2 (08:01→20:49)
[2019-03-30 08:45] LABS: Prothrombin Time 35.9 Seconds (9.0-12.0)
[2019-03-30 08:48] LABS: INR 3.9 (0.9-1.1)
[2019-03-30] MEDS: INSULIN ASPART 100 UNITS/ML 3 ML PEN SC SCH ×4 (09:17→20:51)
[2019-03-30] MEDS: DOXYCYCLINE HYCLATE 100 MG in DEXTROSE 5% 100 ML IV SCH (09:24)
[2019-03-30] MEDS ORDERED: COUGH DROP (SUGAR FREE) LOZ 24 LOZ/1 BOX BUCCAL ONE (09:40)
--- NOTE | 2019-03-30 10:09 | Cardiology Progress Note ---
Date of Service March 30, 2019 Assessment & Plan (1) Chronic atrial fibrillation: (2) Tachycardia-bradycardia syndrome: (3) Diastolic CHF: (4) Venous stasis ulcers of both lower extremities: (5) COPD (chronic obstructive pulmonary disease): (6) Supratherapeutic INR: Increase Lasix to 40 mg twice daily. Consider addition of Zaroxolyn to improve diuresis. Follow daily weight, fluid balance, GFR, and electrolytes. Borderline rate control noted at rest. Consider gentle titration of metoprolol during hospitalization pending improvement of respiratory status. Recommend avoiding IV AV kaiser blocking agents due to history of tachybradycardia syndrome. INR trending downward today. Repeat in a.m. Restart Coumadin when INR below 3.1. Antibiotics and treatment of COPD exacerbation as per primary service. Subjective Patient seen exam at the bedside. Atrial fibrillation heart rate ranging from 90 to 100 bpm during the night. Periods of RVR this morning with minimal activity. Edema unchanged. Complains of left pretibial weeping ulceration. Serosanguineous fluid drainage noted. Dyspnea/wheezing unchanged. Review of Systems Review of Systems: All systems reviewed & are unremarkable except as noted in HPI & below Physical Exam Physical Exam: General: NAD, AAO x3, well nourished. Morbid obesity. HEENT: Normocephalic. Atraumatic. Conjunctiva pink, no scleral icterus. Neck: No carotid bruits, the carotid upstrokes are brisk. No JVD. No HJR Heart: Irregular rhythm, normal S1 and S2. No murmurs or rub appreciated. PMI is not displaced. No RV heave. Lungs: + Expiratory wheeze bilaterally. Scattered rhonchi. No rales. Abdomen: Normal bowel sounds. Soft. Nontender. No masses or organomegaly. No abdominal bruits. Extremities: 2+ bilateral pretibial edema with stasis changes and venous ulcers. + Left pretibial serosanguineous drainage. Pulses: radial=2/4. Neuro: Cranial nerves grossly intact. No focal motor deficit. Results & Data Vital Signs (Past 12 Hours) Vital Signs Temp Pulse Pulse Resp BP BP Pulse Ox 03/30/19 07:31 36.7 C 89 18 137/85 95 03/30/19 06:52 90 20 95 03/30/19 03:36 36.6 C 105 H 20 131/83 97 03/29/19 23:49 36.6 C 100 H 20 124/68 100 03/29/19 23:42 94 H 03/29/19 23:12 99 H 16 98 (1) Diastolic CHF Heart failure chronicity: acute on chronic Qualified Code(s): I50.33 - Acute on chronic diastolic (congestive) heart failure (2) COPD (chronic obstructive pulmonary disease) COPD type: COPD with acute exacerbation Qualified Code(s): J44.1 - Chronic obstructive pulmonary disease with (acute) exacerbation
--- NOTE | 2019-03-30 15:56 | Hospitalist Progress Note ---
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 Patient was started on BIPAP in the emergency room. Patient then transitioned to nasal cannula while speaking with hospitalist. There is some wheezing but patient able to carry conservation with BIPAP and then off BIPAP with nasal cannula. Acute on Chronic respiratory failure with hypoxia secondary to acute on chronic diastolic heart failure, in the setting of poss. COPD exacerbation -Chest X ray does not suggest pneumonia and does not suggest acute volume overload 1. Cardiomegaly without overt pulmonary edema. 2. Bibasilar opacities suggest atelectasis. 3. Ill-defined right upper lung opacity may be artifactual secondary to device external to the patient. - likely COPD exacerbation vs CHF exacerb - cont. 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 -monitor on telemetry -continue statin -furosemide increase to 40 mg IV BID -patient has history of Tachy-job syndrome so will try to avoid excessive metoprolol beta blockade if possible -avoid hydralazine for now to avoid reflex tachycardia -hold coumadin for now because admission INR is 3.8, currently INR 3.9, plan to restart warfarin when INR is less than 3.1 -cardiology consulted, appreciate their input given complicated cardiac history (3) Chronic venous insufficiency: -small abrasions from chronic venous insufficiency -history of MSSA in prior history of surface wound cultures, repeat would culture -patient has multiple listed drug allergies but she is a poor historian and cannot confirm drug reactions or severity -will continue antibiotics as Doxycycline 100 mg IV BID while inpatient for Staph coverage -furosemide incr. 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 -at home, patient reports that she takes aspart 10 units at breakfast and 12 units for lunch and 10 units for dinner -at home she also reports Lantus 15 units as twice a day instead of qHS as listed in medical records in the past -will check HBA1c -Lantus as 15 units qHS for now and place on sliding scale insulin and titrate up scheduled insulin based on glucose levels -continue lisinopril 40 mg daily DVT prophylaxis: INR is supratherapeutic so patient si already anticaogulated, hold coumadin for now, can resume coumadin when INR is 2 to 3 Full Code Status Patient's son [phone] Subjective Patient is sitting in the chair, in no acute distress, on supplemental oxygen. Denies any fevers, chills, chest pain, shortness of breath, palpitations. Complains of lower extremity edema. Denies any increased cough or sputum production. Review of Systems Review of Systems: All systems reviewed & are unremarkable except as noted in HPI & below Constitutional: no fever and no chills Respiratory: no pain on inspiration Cardiovascular: + edema (LE b/l); no chest pain and no palpitations Gastrointestinal: no abdominal pain, no nausea and no vomiting Physical Exam Physical Exam: Constitutional: Elderly obese female, sitting in the chair, in no acute distress Eyes: PERRL, conjunctivae normal, anicteric sclerae EOM intact bilaterally ENMT: external ear and nose normal, oropharynx normal Neck: normal visual inspection Respiratory: Auscultation: + wheezes b/l and bibasilar crackles Cardiovascular: Rate/Rhythm: irregular, no murmurs Gastrointestinal (Abdomen): normal bowel sounds, soft, obese, nontender to palpation, no guarding Musculoskeletal: Head/Neck/Chest: normocephalic and head atraumatic Skin: bilateral 2+ lower extremity edema with scaly skin and abrasions and chronic discoloration from venous stasis Neurologic: PERRL, EOMI, accommodation nl, no face palsy, no dysarthria CN's II-XI intact bilaterally Psychiatric: A+Ox3, euthymic affect Results & Data Vital Signs (Past 12 Hours) Vital Signs Temp Pulse Pulse Resp BP BP Pulse Ox 03/30/19 15:54 106 H 03/30/19 15:35 109 H 18 92 03/30/19 15:30 36.6 C 109 H 14 151/104 H 92 03/30/19 11:39 36.6 C 84 14 116/69 95 03/30/19 07:31 36.7 C 89 18 137/85 95 03/30/19 06:52 90 20 95 Laboratory Results 03/30/19 03/30/19 03/30/19 Range/Units 11:21 08:14 07:41 WBC (4.8-10.8) K/uL RBC (4.2-5.4) M/uL Hgb (12.0-16.0) g/dL Hct (37-47) % MCV (80-100) fL MCH (25-34) pg MCHC (32-36) g/dL RDW Std Deviation (36.4-46.3) fL RDW Coeff of Silvana (11.5-14.5) % Plt Count (130-400) K/uL Platelet Estimate (Normal) PT 35.9 H (9.0-12.0) Seconds INR 3.9 H (0.9-1.1) Sodium (136-145) mmol/L Potassium (3.5-5.1) mmol/L Chloride (98-107) mmol/L Carbon Dioxide (21-32) mmol/L Anion Gap (3-11) BUN (7-18) mg/dl Creatinine (0.6-1.2) mg/dl Est Cr Clr Drug Dosing ml/min Est GFR ( Amer) Est GFR (Non-Af Amer) BUN/Creatinine Ratio (10-20) Glucose (70-99) mg/dl POC Glucose 212 H 112 H (70-99) Calcium (8.5-10.1) mg/dl 03/30/19 03/30/19 03/29/19 Range/Units 07:00 07:00 20:14 WBC 7.17 (4.8-10.8) K/uL RBC 4.21 (4.2-5.4) M/uL Hgb 10.0 L (12.0-16.0) g/dL Hct 35.6 L (37-47) % MCV 84.6 (80-100) fL MCH 23.8 L (25-34) pg MCHC 28.1 L (32-36) g/dL RDW Std Deviation 57.7 H (36.4-46.3) fL RDW Coeff of Silvana 18.6 H (11.5-14.5) % Plt Count 139 (130-400) K/uL Platelet Estimate Normal (Normal) PT (9.0-12.0) Seconds INR (0.9-1.1) Sodium 142 (136-145) mmol/L Potassium 4.2 (3.5-5.1) mmol/L Chloride 104 (98-107) mmol/L Carbon Dioxide 35 H (21-32) mmol/L Anion Gap 3.0 (3-11) BUN 29 H (7-18) mg/dl Creatinine 1.09 (0.6-1.2) mg/dl Est Cr Clr Drug Dosing 56.3 ml/min Est GFR ( Amer) 56.7 Est GFR (Non-Af Amer) 48.9 BUN/Creatinine Ratio 27.0 H (10-20) Glucose 101 H (70-99) mg/dl POC Glucose 159 H (70-99) Calcium 8.5 (8.5-10.1) mg/dl 03/29/19 Range/Units 16:42 WBC (4.8-10.8) K/uL RBC (4.2-5.4) M/uL Hgb (12.0-16.0) g/dL Hct (37-47) % MCV (80-100) fL MCH (25-34) pg MCHC (32-36) g/dL RDW Std Deviation (36.4-46.3) fL RDW Coeff of Silvana (11.5-14.5) % Plt Count (130-400) K/uL Platelet Estimate (Normal) PT (9.0-12.0) Seconds INR (0.9-1.1) Sodium (136-145) mmol/L Potassium (3.5-5.1) mmol/L Chloride (98-107) mmol/L Carbon Dioxide (21-32) mmol/L Anion Gap (3-11) BUN (7-18) mg/dl Creatinine (0.6-1.2) mg/dl Est Cr Clr Drug Dosing ml/min Est GFR ( Amer) Est GFR (Non-Af Amer) BUN/Creatinine Ratio (10-20) Glucose (70-99) mg/dl POC Glucose 151 H (70-99) Calcium (8.5-10.1) mg/dl Medications Administered Current Inpatient Medications Dextrose (Dextrose 50%) 25 - 50 ml IV UD PRN; Protocol PRN Reason: Hypoglycemia Protocol Stop: 04/27/19 12:18 Ferrous Sulfate (Feosol) 325 mg PO QAM ERIC Stop: 04/28/19 08:59 Last Admin: 03/30/19 08:01 Dose: 325 mg Documented by: Glucagon (Glucagen) 1 mg SQ UD PRN; Protocol PRN Reason: Hypoglycemia Protocol Stop: 04/27/19 12:18 Glucose (Glucose 40%) 15 - 30 gm PO UD PRN; Protocol PRN Reason: Hypoglycemia Protocol Stop: 04/27/19 12:18 Glucose (Dex4 Glucose) 4 - 8 tabs PO UD PRN; Protocol PRN Reason: Hypoglycemia Protocol Stop: 04/27/19 12:18 Doxycycline Hyclate 100 mg/ (Dextrose) 110 mls @ 50 mls/hr IV BID ERIC Stop: 03/30/19 20:59 Last Infusion: 03/30/19 11:41 Dose: Infused Documented by: Furosemide 40 mg/ Syringe 4 mls @ 4 mls/min IV [id number] ERIC Stop: 04/29/19 16:59 Insulin Aspart (Novolog Flexpen) 0 units SC ACHS ERIC Stop: 04/27/19 16:29 Last Admin: 03/30/19 12:03 Dose: 4 units Documented by: Insulin Glargine (Lantus Solostar Pen) 15 units SQ HS ERIC Stop: 04/27/19 20:59 Last Admin: 03/29/19 20:26 Dose: 15 units Documented by: Levalbuterol HCl (Xopenex 1.25mg/3ml Neb) 1.25 mg NEB Q8R ERIC Stop: 04/27/19 14:59 Last Admin: 03/30/19 15:34 Dose: 1.25 mg Documented by: Lisinopril (Zestril) 40 mg PO HS [facility] Stop: 04/27/19 20:59 Last Admin: 03/29/19 20:27 Dose: 40 mg Documented by: Metoprolol Tartrate (Lopressor) 50 mg PO BID [facility] Stop: 04/28/19 08:59 Last Admin: 03/30/19 08:00 Dose: 50 mg Documented by: Miscellaneous (Carbohydrates For Hypoglycemia) 15 - 30 gm PO UD PRN PRN Reason: Hypoglycemia Protocol Stop: 04/27/19 12:18 Nystatin (Mycostatin) 1 appln EXT PRN PRN PRN Reason: Affected Skin Folds Stop: 04/29/19 07:09 Pantoprazole Sodium (Protonix) 40 mg PO QAM [facility] Stop: 04/01/19 08:59 Last Admin: 03/30/19 08:00 Dose: 40 mg Documented by: Fluticasone/Salmeterol (Advair Diskus 250/50) 1 puffs INH BID [facility] Stop: 04/27/19 20:59 Last Admin: 03/30/19 08:01 Dose: 1 puffs Documented by: Simvastatin (Zocor) 20 mg PO HS [facility] Stop: 04/27/19 20:59 Last Admin: 03/29/19 20:28 Dose: 20 mg Documented by: (1) COPD (chronic obstructive pulmonary disease) COPD type: COPD with acute exacerbation Qualified Code(s): J44.1 - Chronic obstructive pulmonary disease with (acute) exacerbation
[2019-03-30] MEDS: INSULIN GLARGINE SOLOSTAR 100 UNITS/ML 3 ML PEN SQ SCH (20:46)
[2019-03-30] MEDS: SIMVASTATIN 20 MG TAB PO SCH (20:50)
[2019-03-30] MEDS: lisinopriL 40 MG TAB PO SCH (20:51)
[2019-03-31 06:40] LABS: INR 2.8 (0.9-1.1); Prothrombin Time 26.5 Seconds (9.0-12.0)
[2019-03-31 06:50] LABS: Hemoglobin 9.9 g/dL (12.0-16.0); Mean Corpuscular Hemoglobin 23.9 pg (25-34); Mean Corpuscular Hgb Conc 28.3 g/dL (32-36); Mean Corpuscular Volume 84.5 fL (80-100); RDW Coefficient of Variation 18.5 % (11.5-14.5); RDW Standard Deviation 57.5 fL (36.4-46.3); Red Blood Count 4.14 M/uL (4.2-5.4); White Blood Count 6.83 K/uL (4.8-10.8)
[2019-03-31] MEDS: LEVALBUTEROL HCL 1.25 MG/3 ML NEB NEB SCH ×3 (06:59→23:08)
[2019-03-31 07:00] LABS: BUN Creatinine Ratio 25.4 (10-20); Calcium 8.3 mg/dl (8.5-10.1); Creatinine Clr Calc Pharmacy 54.8 ml/min; Est GFR (African American) 54.9; Est GFR (Non-African American) 47.3; Magnesium 1.2 mg/dl (1.8-2.4); Potassium 3.8 mmol/L (3.5-5.1)
[2019-03-31 07:04] LABS: Basophils # (auto) 0.03 K/uL (0-0.2); Basophils % (auto) 0.4 %; Eosinophils # (auto) 0.09 K/uL (0-0.5); Eosinophils % (auto) 1.3 %; Giant Platelets 1+; Immature Granulocytes # (auto) 0.03 K/uL (0.00-0.02); Immature Granulocytes % (auto) 0.4 %; Lymphocytes # (auto) 1.21 K/uL (1.2-3.4); Lymphocytes % (auto) 17.7 %; Monocytes # (auto) 0.67 K/uL (0.11-0.59); Monocytes % (auto) 9.8 %; Neutrophils % (auto) 70.4 %; Platelet Count 118 K/uL (130-400); Platelet Estimate Decreased (Normal)
[2019-03-31] MEDS: METOPROLOL TARTRATE 50 MG TAB PO SCH ×2 (09:19→21:42)
[2019-03-31] MEDS: PANTOprazole 40 MG TAB PO SCH (09:20)
[2019-03-31] MEDS: FERROUS SULFATE 325 MG TAB PO SCH (09:20)
[2019-03-31] MEDS: FUROSEMIDE 40 MG in SYRINGE 0 ML IV SCH ×2 (09:20→17:36)
[2019-03-31] MEDS: FLUTICASONE/SALMETEROL 250/50 (ADVAIR) 14 PUFF/1 INHALER INH SCH ×2 (09:20→21:40)
[2019-03-31] MEDS: INSULIN ASPART 100 UNITS/ML 3 ML PEN SC SCH ×4 (09:21→21:46)
[2019-03-31] MEDS ORDERED: METOPROLOL TARTRATE 25 MG TAB PO STA (11:54)
--- NOTE | 2019-03-31 11:54 | Cardiology Progress Note ---
Date of Service March 31, 2019 Assessment & Plan (1) Chronic atrial fibrillation: (2) Tachycardia-bradycardia syndrome: (3) Diastolic CHF: (4) Venous stasis ulcers of both lower extremities: (5) COPD (chronic obstructive pulmonary disease): (6) Supratherapeutic INR: Continue IV Lasix 40 mg twice daily. Follow daily weight, fluid balance, GFR, and electrolytes. Titrate metoprolol to 75 mg in the morning, 50 mg in the evening to improve rate control. Avoid IV AV kaiser blocking agents due to history of tachybradycardia syndrome. INR trending downward today. Restart warfarin today. Antibiotics and treatment of COPD exacerbation as per primary service. Subjective Patient seen and examined the bedside. Lower extremity edema mildly improved however weeping ulcerations noted. Notes continued cough however wheezing has improved. No orthopnea or PND. Requesting a shower. Denies chest heaviness or tightness. No palpitations. Heart rate remains elevated with minimal activity. No new concerns/complaints at this time. INR trending downward. Review of Systems Review of Systems: All systems reviewed & are unremarkable except as noted in HPI & below Physical Exam Physical Exam: General: NAD, AAO x3, well nourished. Morbid obesity. HEENT: Normocephalic. Atraumatic. Conjunctiva pink, no scleral icterus. Neck: No carotid bruits, the carotid upstrokes are brisk. No JVD. No HJR Heart: Irregular rhythm, normal S1 and S2. No murmurs or rub appreciated. PMI is not displaced. No RV heave. Lungs: No wheeze. Scattered rhonchi. No rales. Abdomen: Normal bowel sounds. Soft. Nontender. No masses or organomegaly. No abdominal bruits. Extremities: 2+ bilateral pretibial edema with stasis changes and venous ulcers. + B/L pretibial serosanguineous drainage. Pulses: radial=2/4. Neuro: Cranial nerves grossly intact. No focal motor deficit. Results & Data Vital Signs (Past 12 Hours) Vital Signs Temp Pulse Pulse Resp BP Pulse Ox 03/31/19 08:00 36.5 C 101 H 20 125/68 92 03/31/19 07:03 86 23 97 03/31/19 03:25 36.6 C 100 H 23 124/71 92 03/31/19 00:32 100 H (1) Diastolic CHF Heart failure chronicity: acute on chronic Qualified Code(s): I50.33 - Acute on chronic diastolic (congestive) heart failure (2) COPD (chronic obstructive pulmonary disease) COPD type: COPD with acute exacerbation Qualified Code(s): J44.1 - Chronic obstructive pulmonary disease with (acute) exacerbation
[2019-03-31] MEDS: DOXYCYCLINE HYCLATE 100 MG CAP PO SCH ×2 (13:06→21:45)
--- NOTE | 2019-03-31 21:21 | Hospitalist Progress Note ---
Date of Service March 31, 2019 Assessment & Plan (1) COPD (chronic obstructive pulmonary disease): 78 y/o F w/ hx of COPD, Chronic respiratory failure secondary to COPD who uses 2 liters/minute at night, and Type II Diabetes Mellitus with custodial current use of insulin, Paroxysmal atrial fibrillation with history of 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 2018 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, Morbid Obesity, chronic lower extremity edema from chronic venous stasis who presents with shortness of breath and hypoxia after patient reports she was exerting herself more recently. Patient was started on BIPAP in the emergency room. Patient then transitioned to nasal cannula while speaking with hospitalist. Acute on Chronic respiratory failure with hypoxia secondary to acute on chronic diastolic heart failure, in the setting of poss. COPD exacerbation -Chest X ray does not suggest pneumonia and does not suggest acute volume overload 1. Cardiomegaly without overt pulmonary edema. 2. Bibasilar opacities suggest atelectasis. 3. Ill-defined right upper lung opacity may be artifactual secondary to device external to the patient. - likely COPD exacerbation vs CHF exacerb - cont. 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 -monitor on telemetry -continue statin -furosemide increase to 40 mg IV BID -patient has history of Tachy-job syndrome so will try to avoid excessive metoprolol beta blockade if possible -avoid hydralazine for now to avoid reflex tachycardia -held coumadin b/c on admission INR was 3.8, currently INR 2.8, restart warfarin -cardiology consulted, appreciate their input given complicated cardiac history (3) Chronic venous insufficiency: -small abrasions from chronic venous insufficiency -history of MSSA in prior history of surface wound cultures -repeated would culture - positive for Coag negative staph and corynebacterium -patient has multiple listed drug allergies but she is a poor historian and cannot confirm drug reactions or severity -will continue antibiotics as Doxycyclin, will switch to PO (100 mg BID) - cont. incr. 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 Denies any chest pain, palpitations or shortness of breath, nausea, vomiting, abdominal pain. Called patient's son while at the bedside, updated him on clinical status of his mother and answered all his questions. Review of Systems Review of Systems: All systems reviewed & are unremarkable except as noted in HPI & below Constitutional: no fever and no chills Respiratory: no cough and no dyspnea Cardiovascular: + edema (LE b/l); no chest pain and no palpitations Gastrointestinal: no abdominal pain, no nausea and no vomiting Physical Exam Physical Exam: Constitutional: Elderly obese female, sitting in the chair, in no acute distress Eyes: PERRL, conjunctivae normal, anicteric sclerae EOM intact bilaterally ENMT: external ear and nose normal, oropharynx normal Neck: normal visual inspection Respiratory: Auscultation: + wheezes b/l and bibasilar crackles Cardiovascular: Rate/Rhythm: irregular, no murmurs Gastrointestinal (Abdomen): normal bowel sounds, soft, obese, nontender to palpation, no guarding Musculoskeletal: Head/Neck/Chest: normocephalic and head atraumatic Skin: bilateral 2+ lower extremity edema with serosang. drainage, scaly skin and abrasions and chronic discoloration from venous stasis Neurologic: PERRL, EOMI, accommodation nl, no face palsy, no dysarthria CN's II-XI intact bilaterally Psychiatric: A+Ox3, euthymic affect Results & Data Vital Signs (Past 12 Hours) Vital Signs Temp Pulse Resp BP BP Pulse Ox 03/31/19 19:00 36.8 C 111 H 18 112/75 90 03/31/19 15:11 106 H 18 96 03/31/19 15:06 36.5 C 107 H 20 129/84 98 03/31/19 12:00 36.5 C 96 H 18 116/54 L 92 Laboratory Results 03/31/19 03/31/19 03/31/19 Range/Units 20:13 16:19 11:51 WBC (4.8-10.8) K/uL RBC (4.2-5.4) M/uL Hgb (12.0-16.0) g/dL Hct (37-47) % MCV (80-100) fL MCH (25-34) pg MCHC (32-36) g/dL RDW Std Deviation (36.4-46.3) fL RDW Coeff of Silvana (11.5-14.5) % Plt Count (130-400) K/uL Immature Gran % (Auto) % Neut % (Auto) % Lymph % (Auto) % [place] % (Auto) % Eos % (Auto) % Baso % (Auto) % Immature Gran # (Auto) (0.00-0.02) K/uL Neut # (Auto) (1.4-6.5) K/uL Lymph # (Auto) (1.2-3.4) K/uL [place] # (Auto) (0.11-0.59) K/uL Eos # (Auto) (0-0.5) K/uL Baso # (Auto) (0-0.2) K/uL Platelet Estimate (Normal) Giant Platelets PT (9.0-12.0) Seconds INR (0.9-1.1) Sodium (136-145) mmol/L Potassium (3.5-5.1) mmol/L Chloride (98-107) mmol/L Carbon Dioxide (21-32) mmol/L Anion Gap (3-11) BUN (7-18) mg/dl Creatinine (0.6-1.2) mg/dl Est Cr Clr Drug Dosing ml/min Est GFR ( Amer) Est GFR (Non-Af Amer) BUN/Creatinine Ratio (10-20) Glucose (70-99) mg/dl POC Glucose 199 H 124 H 133 H (70-99) Calcium (8.5-10.1) mg/dl Magnesium (1.8-2.4) mg/dl 03/31/19 03/31/19 03/31/19 Range/Units 07:39 06:18 06:18 WBC 6.83 (4.8-10.8) K/uL RBC 4.14 L (4.2-5.4) M/uL Hgb 9.9 L (12.0-16.0) g/dL Hct 35.0 L (37-47) % MCV 84.5 (80-100) fL MCH 23.9 L (25-34) pg MCHC 28.3 L (32-36) g/dL RDW Std Deviation 57.5 H (36.4-46.3) fL RDW Coeff of Silvana 18.5 H (11.5-14.5) % Plt Count 118 L (130-400) K/uL Immature Gran % (Auto) 0.4 % Neut % (Auto) 70.4 % Lymph % (Auto) 17.7 % [place] % (Auto) 9.8 % Eos % (Auto) 1.3 % Baso % (Auto) 0.4 % Immature Gran # (Auto) 0.03 H (0.00-0.02) K/uL Neut # (Auto) 4.80 (1.4-6.5) K/uL Lymph # (Auto) 1.21 (1.2-3.4) K/uL [place] # (Auto) 0.67 H (0.11-0.59) K/uL Eos # (Auto) 0.09 (0-0.5) K/uL Baso # (Auto) 0.03 (0-0.2) K/uL Platelet Estimate Decreased L (Normal) Giant Platelets 1+ PT (9.0-12.0) Seconds INR (0.9-1.1) Sodium 144 (136-145) mmol/L Potassium 3.8 (3.5-5.1) mmol/L Chloride 103 (98-107) mmol/L Carbon Dioxide 37 H (21-32) mmol/L Anion Gap 4.0 (3-11) BUN 29 H (7-18) mg/dl Creatinine 1.12 (0.6-1.2) mg/dl Est Cr Clr Drug Dosing 54.8 ml/min Est GFR ( Amer) 54.9 Est GFR (Non-Af Amer) 47.3 BUN/Creatinine Ratio 25.4 H (10-20) Glucose 89 (70-99) mg/dl POC Glucose 99 (70-99) Calcium 8.3 L (8.5-10.1) mg/dl Magnesium 1.2 L (1.8-2.4) mg/dl 03/31/19 Range/Units 06:18 WBC (4.8-10.8) K/uL RBC (4.2-5.4) M/uL Hgb (12.0-16.0) g/dL Hct (37-47) % MCV (80-100) fL MCH (25-34) pg MCHC (32-36) g/dL RDW Std Deviation (36.4-46.3) fL RDW Coeff of Silvana (11.5-14.5) % Plt Count (130-400) K/uL Immature Gran % (Auto) % Neut % (Auto) % Lymph % (Auto) % [place] % (Auto) % Eos % (Auto) % Baso % (Auto) % Immature Gran # (Auto) (0.00-0.02) K/uL Neut # (Auto) (1.4-6.5) K/uL Lymph # (Auto) (1.2-3.4) K/uL [place] # (Auto) (0.11-0.59) K/uL Eos # (Auto) (0-0.5) K/uL Baso # (Auto) (0-0.2) K/uL Platelet Estimate (Normal) Giant Platelets PT 26.5 H (9.0-12.0) Seconds INR 2.8 H (0.9-1.1) Sodium (136-145) mmol/L Potassium (3.5-5.1) mmol/L Chloride (98-107) mmol/L Carbon Dioxide (21-32) mmol/L Anion Gap (3-11) BUN (7-18) mg/dl Creatinine (0.6-1.2) mg/dl Est Cr Clr Drug Dosing ml/min Est GFR ( Amer) Est GFR (Non-Af Amer) BUN/Creatinine Ratio (10-20) Glucose (70-99) mg/dl POC Glucose (70-99) Calcium (8.5-10.1) mg/dl Magnesium (1.8-2.4) mg/dl Medications Administered Current Inpatient Medications Dextrose (Dextrose 50%) 25 - 50 ml IV UD PRN; Protocol PRN Reason: Hypoglycemia Protocol Stop: 04/27/19 12:18 Doxycycline Hyclate (Vibramycin) 100 mg PO BID [facility]; Protocol Stop: 04/07/19 11:44 Last Admin: 03/31/19 13:06 Dose: 100 mg Documented by: Ferrous Sulfate (Feosol) 325 mg PO DAILY@0700 [facility] Stop: 05/01/19 06:59 Glucagon (Glucagen) 1 mg SQ UD PRN; Protocol PRN Reason: Hypoglycemia Protocol Stop: 04/27/19 12:18 Glucose (Glucose 40%) 15 - 30 gm PO UD PRN; Protocol PRN Reason: Hypoglycemia Protocol Stop: 04/27/19 12:18 Glucose (Dex4 Glucose) 4 - 8 tabs PO UD PRN; Protocol PRN Reason: Hypoglycemia Protocol Stop: 04/27/19 12:18 Furosemide 40 mg/ Syringe 4 mls @ 4 mls/min IV [id number] [facility] Stop: 04/29/19 16:59 Last Admin: 03/31/19 17:36 Dose: 4 mls/min Documented by: Magnesium Sulfate/Dextrose (Magnesium Sulfate / D5w) 1 gm in 100 mls @ 100 mls/ hr IV Q1H [facility] Stop: 03/31/19 23:59 Insulin Aspart (Novolog Flexpen) 0 units SC ACHS [facility] Stop: 04/27/19 16:29 Last Admin: 03/31/19 17:35 Dose: Not Given Documented by: Insulin Glargine (Lantus Solostar Pen) 15 units SQ HS [facility] Stop: 04/27/19 20:59 Last Admin: 03/30/19 20:46 Dose: 15 units Documented by: Levalbuterol HCl (Xopenex 1.25mg/3ml Neb) 1.25 mg NEB Q8R [facility] Stop: 04/27/19 14:59 Last Admin: 03/31/19 15:11 Dose: 1.25 mg Documented by: Lisinopril (Zestril) 40 mg PO HS [facility] Stop: 04/27/19 20:59 Last Admin: 03/30/19 20:51 Dose: 40 mg Documented by: Metoprolol Tartrate (Lopressor) 50 mg PO QPM ERIC Stop: 04/30/19 20:59 Metoprolol Tartrate (Lopressor) 75 mg PO DAILY ERIC Stop: 05/01/19 08:59 Miscellaneous (Carbohydrates For Hypoglycemia) 15 - 30 gm PO UD PRN PRN Reason: Hypoglycemia Protocol Stop: 04/27/19 12:18 Nystatin (Mycostatin) 1 appln EXT PRN PRN PRN Reason: Affected Skin Folds Stop: 04/29/19 07:09 Pantoprazole Sodium (Protonix) 40 mg PO QAM [facility] Stop: 04/01/19 08:59 Last Admin: 03/31/19 09:20 Dose: 40 mg Documented by: Fluticasone/Salmeterol (Advair Diskus 250/50) 1 puffs INH BID ERIC Stop: 04/27/19 20:59 Last Admin: 03/31/19 09:20 Dose: 1 puffs Documented by: Simvastatin (Zocor) 20 mg PO HS ERIC Stop: 04/27/19 20:59 Last Admin: 03/30/19 20:50 Dose: 20 mg Documented by: (1) COPD (chronic obstructive pulmonary disease) COPD type: COPD with acute exacerbation Qualified Code(s): J44.1 - Chronic obstructive pulmonary disease with (acute) exacerbation
[2019-03-31] MEDS: SIMVASTATIN 20 MG TAB PO SCH (21:43)
[2019-03-31] MEDS: lisinopriL 40 MG TAB PO SCH (21:44)
[2019-03-31] MEDS: INSULIN GLARGINE SOLOSTAR 100 UNITS/ML 3 ML PEN SQ SCH (21:45)
[2019-03-31] MEDS: WARFARIN SOD 2 MG TAB PO SCH (22:29)
[2019-03-31] MEDS: MAGNESIUM SULFATE / D5W 1 GM/100 ML BAG IV SCH ×2 (22:30→23:35)
[2019-04-01 06:46] LABS: INR 2.1 (0.9-1.1)
[2019-04-01] MEDS: FERROUS SULFATE 325 MG TAB PO SCH (06:46)
[2019-04-01 07:12] LABS: Hematocrit (blood only) 37.6 % (37-47); Hemoglobin 10.4 g/dL (12.0-16.0); Mean Corpuscular Hemoglobin 23.5 pg (25-34); Mean Corpuscular Hgb Conc 27.7 g/dL (32-36); Mean Corpuscular Volume 84.9 fL (80-100); Platelet Count 116 K/uL (130-400); Platelet Estimate Decreased (Normal); RDW Coefficient of Variation 18.4 % (11.5-14.5); RDW Standard Deviation 57.4 fL (36.4-46.3); Red Blood Count 4.43 M/uL (4.2-5.4); White Blood Count 6.48 K/uL (4.8-10.8)
[2019-04-01 07:15] LABS: BUN Creatinine Ratio 22.5 (10-20); Calcium 8.4 mg/dl (8.5-10.1); Creatinine Clr Calc Pharmacy 36.9 ml/min; Est GFR (African American) 49.5; Est GFR (Non-African American) 42.7; Magnesium 1.5 mg/dl (1.8-2.4); Potassium 3.6 mmol/L (3.5-5.1)
[2019-04-01] MEDS: LEVALBUTEROL HCL 1.25 MG/3 ML NEB NEB SCH ×3 (07:25→23:26)
[2019-04-01] MEDS: FLUTICASONE/SALMETEROL 250/50 (ADVAIR) 14 PUFF/1 INHALER INH SCH ×2 (08:02→20:59)
[2019-04-01] MEDS: DOXYCYCLINE HYCLATE 100 MG CAP PO SCH ×2 (08:03→20:57)
[2019-04-01] MEDS: FUROSEMIDE 40 MG in SYRINGE 0 ML IV SCH ×2 (08:03→16:39)
[2019-04-01] MEDS: METOPROLOL TARTRATE 25 MG TAB PO SCH (08:03)
[2019-04-01] MEDS: INSULIN ASPART 100 UNITS/ML 3 ML PEN SC SCH ×4 (08:33→20:58)
[2019-04-01] MEDS ORDERED: POTASSIUM CHLORIDE 20 MEQ TABCR PO STA (09:31)
[2019-04-01] MEDS: MAGNESIUM SULFATE / D5W 1 GM/100 ML BAG IV SCH ×2 (10:00→11:07)
--- NOTE | 2019-04-01 13:00 | Cardiology Progress Note ---
Date of Service April 01, 2019 Assessment & Plan (1) Chronic atrial fibrillation: (2) Tachycardia-bradycardia syndrome: (3) Diastolic CHF: (4) Venous stasis ulcers of both lower extremities: (5) COPD (chronic obstructive pulmonary disease): (6) Supratherapeutic INR: Will hold IV furosemide after p.m. dose this evening Treat underlying pulmonary issues Supplement potassium to aid in contraction alkalosis present Subjective Patient seen and examined, chart medications, telemetry reviewed. Patient feels she is improved overall lower extremity edema has diminished with chronic stasis changes and induration present. Notes no chest pains dizziness or lightheadedness Physical Exam Constitutional: + ill appearing; no acute distress Eyes: PERRL, conjunctivae normal, anicteric sclerae ENMT: external ear and nose normal, oropharynx normal Neck: trachea midline, no thyromegaly Respiratory: Auscultation: + diminished lung sounds and + rhonchi (Coarse rhonchi with cough present) Cardiovascular: Rate/Rhythm: + irregularly irregular Heart Sounds: normal S1 and normal S2; no gallop Extremities: + edema 1-2+ with contraction and chronic stasis change Gastrointestinal (Abdomen): normal bowel sounds, soft, nontender, no he patosplenomegaly Results & Data Vital Signs (Past 12 Hours) Vital Signs Temp Pulse Pulse Resp BP Pulse Ox 04/01/19 11:30 36.2 C L 82 20 99/65 L 97 04/01/19 09:00 87 04/01/19 07:27 91 H 18 96 04/01/19 07:21 36.8 C 96 H 20 115/60 94 04/01/19 05:03 36.6 C 82 20 126/81 100 04/01/19 01:42 95 H Laboratory Results Laboratory Results - last 24 hr 03/31/19 03/31/19 03/31/19 07:39 16:19 20:13 WBC RBC Hgb Hct MCV MCH MCHC RDW Std Deviation RDW Coeff of Silvana Plt Count Platelet Estimate PT INR Sodium Potassium Chloride Carbon Dioxide Anion Gap BUN Creatinine Est Cr Clr Drug Dosing Est GFR ( Amer) Est GFR (Non-Af Amer) BUN/Creatinine Ratio Glucose POC Glucose 99 124 H 199 H Calcium Magnesium 04/01/19 04/01/19 04/01/19 06:14 06:14 06:14 WBC 6.48 RBC 4.43 Hgb 10.4 L Hct 37.6 MCV 84.9 MCH 23.5 L MCHC 27.7 L RDW Std Deviation 57.4 H RDW Coeff of Islvana 18.4 H Plt Count 116 L Platelet Estimate Decreased L PT 20.0 H INR 2.1 H Sodium 143 Potassium 3.6 Chloride 99 Carbon Dioxide 42 H* Anion Gap 1.0 L BUN 28 H Creatinine 1.22 H Est Cr Clr Drug Dosing 36.9 Est GFR ( Amer) 49.5 Est GFR (Non-Af Amer) 42.7 BUN/Creatinine Ratio 22.5 H Glucose 97 POC Glucose Calcium 8.4 L Magnesium 1.5 L 04/01/19 07:41 WBC RBC Hgb Hct MCV MCH MCHC RDW Std Deviation RDW Coeff of Silvana Plt Count Platelet Estimate PT INR Sodium Potassium Chloride Carbon Dioxide Anion Gap BUN Creatinine Est Cr Clr Drug Dosing Est GFR ( Amer) Est GFR (Non-Af Amer) BUN/Creatinine Ratio Glucose POC Glucose 107 H Calcium Magnesium (1) Diastolic CHF Heart failure chronicity: acute on chronic Qualified Code(s): I50.33 - Acute on chronic diastolic (congestive) heart failure (2) COPD (chronic obstructive pulmonary disease) COPD type: COPD with acute exacerbation Qualified Code(s): J44.1 - Chronic obstructive pulmonary disease with (acute) exacerbation
[2019-04-01] MEDS: WARFARIN SOD 2 MG TAB PO SCH (16:39)
--- NOTE | 2019-04-01 17:53 | Hospitalist Progress Note ---
Date of Service April 01, 2019 Assessment & Plan (1) COPD (chronic obstructive pulmonary disease): 78 y/o F w/ hx of COPD, Chronic respiratory failure secondary to COPD who uses 2 liters/minute at night, and Type II Diabetes Mellitus with longterm current use of insulin, Paroxysmal atrial fibrillation with history of 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 2018 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, Morbid Obesity, chronic lower extremity edema from chronic venous stasis who presents with shortness of breath and hypoxia after patient reports she was exerting herself more recently. Patient was started on BIPAP in the emergency room. Patient then transitioned to nasal cannula while speaking with hospitalist. Acute on Chronic respiratory failure with hypoxia secondary to acute on chronic diastolic heart failure, in the setting of poss. COPD exacerbation -Chest X ray does not suggest pneumonia and does not suggest acute volume overload 1. Cardiomegaly without overt pulmonary edema. 2. Bibasilar opacities suggest atelectasis. 3. Ill-defined right upper lung opacity may be artifactual secondary to device external to the patient. - likely COPD exacerbation vs CHF exacerb - cont. 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 alk. -patient has history of Tachy-job syndrome so will try to avoid excessive metoprolol beta blockade if possible -avoid hydralazine for now to avoid reflex tachycardia -held coumadin b/c on admission INR was 3.8, currently INR 2.1, restarted warfarin yesterday (03/31) -cardiology consulted, appreciate their input (3) Chronic venous insufficiency: -small abrasions from chronic venous insufficiency -history of MSSA in prior history of surface wound cultures -repeated would culture - positive for Coag negative staph and corynebacterium -patient has multiple listed drug allergies but she is a poor historian and cannot confirm drug reactions or severity -will continue antibiotics as Doxycyclin, switched to PO (100 mg BID) -d/c furosemide to 40 mg IV bid -LE edema much improved, important to control the edema in order to heal the skin and prevent future cellulitis -PT/OT evaluation -cleary placed in the ED as short term to avoid urine to legs -wound care q nursing shift, wound nursing - Discussed leg elevation to help with edema (4) DM type 2 (diabetes mellitus, type 2): Diabetes type 2 with longterm current use of insulin -at home, patient reports that she takes aspart 10 units at breakfast and 12 units for lunch and 10 units for dinner -at home she also reports Lantus 15 units as twice a day instead of qHS as listed in medical records in the past -will check HBA1c -Lantus as 15 units qHS for now and place on sliding scale insulin and titrate up scheduled insulin based on glucose levels -continue lisinopril 40 mg daily DVT prophylaxis: On Coumadin, INR therapeutic Full Code Status Patient's son [phone] (updated over the phone, on 03/31/2019) Subjective Patient laying in bed, comfortable, legs elevated. Denies any chest pain, shortness of breath, fevers, chills abdominal pain, nausea, vomiting. Lower extremities now look much better, edema significantly reduced. Review of Systems Review of Systems: All systems reviewed & are unremarkable except as noted in HPI & below Constitutional: no fever and no chills Respiratory: no cough and no dyspnea Cardiovascular: no chest pain and no palpitations Gastrointestinal: no abdominal pain, no nausea and no vomiting Physical Exam Physical Exam: Constitutional: Elderly obese female, sitting in the chair, in no acute distress Eyes: PERRL, conjunctivae normal, anicteric sclerae EOM intact bilaterally ENMT: external ear and nose normal, oropharynx normal Neck: normal visual inspection Respiratory: Auscultation: + wheezes b/l and bibasilar crackles Cardiovascular: Rate/Rhythm: irregular, no murmurs Gastrointestinal (Abdomen): normal bowel sounds, soft, obese, nontender to palpation, no guarding Musculoskeletal: Head/Neck/Chest: normocephalic and head atraumatic Skin: bilateral 1+ lower extremity edema (much improved from previous exam) with serosang. drainage, scaly skin and abrasions and chronic discoloration from venous stasis Neurologic: PERRL, EOMI, accommodation nl, no face palsy, no dysarthria CN's II-XI intact bilaterally Psychiatric: A+Ox3, euthymic affect Results & Data Vital Signs (Past 12 Hours) Vital Signs Temp Pulse Pulse Resp BP Pulse Ox 04/01/19 17:02 91 H 04/01/19 16:00 36.7 C 108 H 20 104/58 L 96 04/01/19 14:52 82 20 96 04/01/19 11:30 36.2 C L 82 20 99/65 L 97 04/01/19 09:00 87 04/01/19 07:27 91 H 18 96 04/01/19 07:21 36.8 C 96 H 20 115/60 94 Laboratory Results 04/01/19 04/01/19 04/01/19 Range/Units 16:21 11:37 07:41 WBC (4.8-10.8) K/uL RBC (4.2-5.4) M/uL Hgb (12.0-16.0) g/dL Hct (37-47) % MCV (80-100) fL MCH (25-34) pg MCHC (32-36) g/dL RDW Std Deviation (36.4-46.3) fL RDW Coeff of Silvana (11.5-14.5) % Plt Count (130-400) K/uL Platelet Estimate (Normal) PT (9.0-12.0) Seconds INR (0.9-1.1) Sodium (136-145) mmol/L Potassium (3.5-5.1) mmol/L Chloride (98-107) mmol/L Carbon Dioxide (21-32) mmol/L Anion Gap (3-11) BUN (7-18) mg/dl Creatinine (0.6-1.2) mg/dl Est Cr Clr Drug Dosing ml/min Est GFR ( Amer) Est GFR (Non-Af Amer) BUN/Creatinine Ratio (10-20) Glucose (70-99) mg/dl POC Glucose 157 H 177 H 107 H (70-99) Calcium (8.5-10.1) mg/dl Magnesium (1.8-2.4) mg/dl 04/01/19 04/01/19 04/01/19 Range/Units 06:14 06:14 06:14 WBC 6.48 (4.8-10.8) K/uL RBC 4.43 (4.2-5.4) M/uL Hgb 10.4 L (12.0-16.0) g/dL Hct 37.6 (37-47) % MCV 84.9 (80-100) fL MCH 23.5 L (25-34) pg MCHC 27.7 L (32-36) g/dL RDW Std Deviation 57.4 H (36.4-46.3) fL RDW Coeff of Silvana 18.4 H (11.5-14.5) % Plt Count 116 L (130-400) K/uL Platelet Estimate Decreased L (Normal) PT 20.0 H (9.0-12.0) Seconds INR 2.1 H (0.9-1.1) Sodium 143 (136-145) mmol/L Potassium 3.6 (3.5-5.1) mmol/L Chloride 99 (98-107) mmol/L Carbon Dioxide 42 H* (21-32) mmol/L Anion Gap 1.0 L (3-11) BUN 28 H (7-18) mg/dl Creatinine 1.22 H (0.6-1.2) mg/dl Est Cr Clr Drug Dosing 36.9 ml/min Est GFR ( Amer) 49.5 Est GFR (Non-Af Amer) 42.7 BUN/Creatinine Ratio 22.5 H (10-20) Glucose 97 (70-99) mg/dl POC Glucose (70-99) Calcium 8.4 L (8.5-10.1) mg/dl Magnesium 1.5 L (1.8-2.4) mg/dl 03/31/19 Range/Units 20:13 WBC (4.8-10.8) K/uL RBC (4.2-5.4) M/uL Hgb (12.0-16.0) g/dL Hct (37-47) % MCV (80-100) fL MCH (25-34) pg MCHC (32-36) g/dL RDW Std Deviation (36.4-46.3) fL RDW Coeff of Silvana (11.5-14.5) % Plt Count (130-400) K/uL Platelet Estimate (Normal) PT (9.0-12.0) Seconds INR (0.9-1.1) Sodium (136-145) mmol/L Potassium (3.5-5.1) mmol/L Chloride (98-107) mmol/L Carbon Dioxide (21-32) mmol/L Anion Gap (3-11) BUN (7-18) mg/dl Creatinine (0.6-1.2) mg/dl Est Cr Clr Drug Dosing ml/min Est GFR ( Amer) Est GFR (Non-Af Amer) BUN/Creatinine Ratio (10-20) Glucose (70-99) mg/dl POC Glucose 199 H (70-99) Calcium (8.5-10.1) mg/dl Magnesium (1.8-2.4) mg/dl Medications Administered Current Inpatient Medications Dextrose (Dextrose 50%) 25 - 50 ml IV UD PRN; Protocol PRN Reason: Hypoglycemia Protocol Stop: 04/27/19 12:18 Doxycycline Hyclate (Vibramycin) 100 mg PO BID [facility]; Protocol Stop: 04/07/19 11:44 Last Admin: 04/01/19 08:03 Dose: 100 mg Documented by: Ferrous Sulfate (Feosol) 325 mg PO DAILY@0700 [facility] Stop: 05/01/19 06:59 Last Admin: 04/01/19 06:46 Dose: 325 mg Documented by: Glucagon (Glucagen) 1 mg SQ UD PRN; Protocol PRN Reason: Hypoglycemia Protocol Stop: 04/27/19 12:18 Glucose (Glucose 40%) 15 - 30 gm PO UD PRN; Protocol PRN Reason: Hypoglycemia Protocol Stop: 04/27/19 12:18 Glucose (Dex4 Glucose) 4 - 8 tabs PO UD PRN; Protocol PRN Reason: Hypoglycemia Protocol Stop: 04/27/19 12:18 Furosemide 40 mg/ Syringe 4 mls @ 4 mls/min IV BID17 [facility] Stop: 04/29/19 16:59 Last Admin: 04/01/19 16:39 Dose: Not Given Documented by: Insulin Aspart (Novolog Flexpen) 0 units SC ACHS [facility] Stop: 04/27/19 16:29 Last Admin: 04/01/19 16:38 Dose: 1 units Documented by: Insulin Glargine (Lantus Solostar Pen) 15 units SQ HS [facility] Stop: 04/27/19 20:59 Last Admin: 03/31/19 21:45 Dose: 15 units Documented by: Levalbuterol HCl (Xopenex 1.25mg/3ml Neb) 1.25 mg NEB Q8R [facility] Stop: 04/27/19 14:59 Last Admin: 04/01/19 14:52 Dose: 1.25 mg Documented by: Lisinopril (Zestril) 40 mg PO HS [facility] Stop: 04/27/19 20:59 Last Admin: 03/31/19 21:44 Dose: 40 mg Documented by: Metoprolol Tartrate (Lopressor) 50 mg PO QPM [facility] Stop: 04/30/19 20:59 Last Admin: 03/31/19 21:42 Dose: 50 mg Documented by: Metoprolol Tartrate (Lopressor) 75 mg PO DAILY [facility] Stop: 05/01/19 08:59 Last Admin: 04/01/19 08:03 Dose: 75 mg Documented by: Miscellaneous (Carbohydrates For Hypoglycemia) 15 - 30 gm PO UD PRN PRN Reason: Hypoglycemia Protocol Stop: 04/27/19 12:18 Nystatin (Mycostatin) 1 appln EXT PRN PRN PRN Reason: Affected Skin Folds Stop: 04/29/19 07:09 Fluticasone/Salmeterol (Advair Diskus 250/50) 1 puffs INH BID [facility] Stop: 04/27/19 20:59 Last Admin: 04/01/19 08:02 Dose: 1 puffs Documented by: Simvastatin (Zocor) 20 mg PO HS [facility] Stop: 04/27/19 20:59 Last Admin: 03/31/19 21:43 Dose: 20 mg Documented by: Warfarin Sodium (Coumadin) 2 mg PO DAILY@1600 [facility] Stop: 04/30/19 21:59 Last Admin: 04/01/19 16:39 Dose: 2 mg Documented by: (1) COPD (chronic obstructive pulmonary disease) COPD type: COPD with acute exacerbation Qualified Code(s): J44.1 - Chronic obstructive pulmonary disease with (acute) exacerbation
[2019-04-01] MEDS: METOPROLOL TARTRATE 50 MG TAB PO SCH (20:57)
[2019-04-01] MEDS: SIMVASTATIN 20 MG TAB PO SCH (20:57)
[2019-04-01] MEDS: lisinopriL 40 MG TAB PO SCH (20:58)
[2019-04-01] MEDS: INSULIN GLARGINE SOLOSTAR 100 UNITS/ML 3 ML PEN SQ SCH (20:58)
[2019-04-02 06:44] LABS: INR 2.2 (0.9-1.1); Prothrombin Time 21.5 Seconds (9.0-12.0)
[2019-04-02] MEDS: LEVALBUTEROL HCL 1.25 MG/3 ML NEB NEB SCH ×3 (07:04→23:10)
[2019-04-02 07:13] LABS: BUN Creatinine Ratio 25.5 (10-20); Calcium 8.3 mg/dl (8.5-10.1); Creatinine Clr Calc Pharmacy 66.2 ml/min; Est GFR (African American) 68.7; Est GFR (Non-African American) 59.3; Magnesium 1.8 mg/dl (1.8-2.4); Potassium 3.8 mmol/L (3.5-5.1)
--- NOTE | 2019-04-02 07:24 | Hospitalist Progress Note ---
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 Patient was started on BIPAP in the emergency room. Patient then transitioned to nasal cannula while speaking with hospitalist. Acute on Chronic respiratory failure with hypoxia secondary to acute on chronic diastolic heart failure, in the setting of poss. COPD exacerbation -Chest X ray does not suggest pneumonia and does not suggest acute volume overload 1. Cardiomegaly without overt pulmonary edema. 2. Bibasilar opacities suggest atelectasis. 3. Ill-defined right upper lung opacity may be artifactual secondary to device external to the patient. - likely COPD exacerbation vs CHF exacerb - cont. doxycycline - nebulizer treatments as scheduled q8 hours, use levalbuterol to avoid e xacerbation of tachycardia - continue home dose Advair - ISB, guaifenesin - titrate oxygen supplementation to base line -telemetry, I&Os, daily weight, low salt diet -Previously on Lasix IV twice daily, her lower extremity edema much improved in the past 2 days -incr. Cr, contr. alk, IV diuretics stopped, will receive 40 p.o. 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 alk., will give 40 mg p.o. today -patient has history of Tachy-job syndrome so will try to avoid excessive metoprolol beta blockade if possible -avoid hydralazine for now to avoid reflex tachycardia -held coumadin b/c on admission INR was 3.8, currently INR 2.1, restarted warfarin(03/31) -cardiology consulted, appreciate their input (3) Chronic venous insufficiency: -small abrasions from chronic venous insufficiency -history of MSSA in prior history of surface wound cultures -repeated would culture - positive for Coag negative staph and corynebacterium -patient has multiple listed drug allergies but she is a poor historian and cannot confirm drug reactions or severity -will continue antibiotics as Doxycyclin, switched to PO (100 mg BID) -stopped furosemide 40 mg IV bid, will give 40 mg p.o. 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 Denies any chest pain, shortness of breath, fevers, chills abdominal pain, nausea, vomiting. Lower extremities now look better, edema significantly reduced since yesterday. Review of Systems Review of Systems: All systems reviewed & are unremarkable except as noted in HPI & below Constitutional: no fever and no chills Respiratory: + dyspnea on exertion Cardiovascular: + edema; no chest pain and no palpitations Gastrointestinal: no abdominal pain, no nausea and no vomiting Physical Exam Physical Exam: Constitutional: Elderly obese female, lying in bed in no acute distress Eyes: PERRL, conjunctivae normal, anicteric sclerae EOM intact bilaterally ENMT: external ear and nose normal, oropharynx normal Neck: normal visual inspection Respiratory: Auscultation: + coarse breath sounds with wheezes and b/l crackles Cardiovascular: Rate/Rhythm: irregular, no murmurs Gastrointestinal (Abdomen): normal bowel sounds, soft, obese, nontender to palpation, no guarding Musculoskeletal: Head/Neck/Chest: normocephalic and head atraumatic Skin: bilateral 1+ lower extremity edema (much improved) with serosang. drainage, scaly skin and abrasions and chronic discoloration from venous stasis Neurologic: PERRL, EOMI, accommodation nl, no face palsy, no dysarthria CN's II-XI intact bilaterally, moves all 4 extremities spontaneously Psychiatric: A+Ox3, euthymic affect Results & Data Vital Signs (Past 12 Hours) Vital Signs Temp Pulse Pulse Resp BP Pulse Ox 04/02/19 07:04 104 H 18 97 04/02/19 04:09 36.7 C 90 20 143/75 H 96 04/02/19 00:00 88 04/01/19 23:26 76 16 98 04/01/19 23:19 37.0 C 99 H 19 134/78 97 04/01/19 19:43 37 C 96 H 18 142/81 H 99 Laboratory Results 04/02/19 04/02/19 04/01/19 Range/Units 06:10 06:10 20:12 PT 21.5 H (9.0-12.0) Seconds INR 2.2 H (0.9-1.1) Sodium 144 (136-145) mmol/L Potassium 3.8 (3.5-5.1) mmol/L Chloride 99 (98-107) mmol/L Carbon Dioxide 41 H* (21-32) mmol/L Anion Gap 4.0 (3-11) BUN 24 H (7-18) mg/dl Creatinine 0.93 (0.6-1.2) mg/dl Est Cr Clr Drug Dosing 66.2 ml/min Est GFR ( Amer) 68.7 Est GFR (Non-Af Amer) 59.3 BUN/Creatinine Ratio 25.5 H (10-20) Glucose 90 (70-99) mg/dl POC Glucose 144 H (70-99) Calcium 8.3 L (8.5-10.1) mg/dl Magnesium 1.8 (1.8-2.4) mg/dl 04/01/19 04/01/19 04/01/19 Range/Units 16:21 11:37 07:41 PT (9.0-12.0) Seconds INR (0.9-1.1) Sodium (136-145) mmol/L Potassium (3.5-5.1) mmol/L Chloride (98-107) mmol/L Carbon Dioxide (21-32) mmol/L Anion Gap (3-11) BUN (7-18) mg/dl Creatinine (0.6-1.2) mg/dl Est Cr Clr Drug Dosing ml/min Est GFR ( Amer) Est GFR (Non-Af Amer) BUN/Creatinine Ratio (10-20) Glucose (70-99) mg/dl POC Glucose 157 H 177 H 107 H (70-99) Calcium (8.5-10.1) mg/dl Magnesium (1.8-2.4) mg/dl Medications Administered Current Inpatient Medications Dextrose (Dextrose 50%) 25 - 50 ml IV UD PRN; Protocol PRN Reason: Hypoglycemia Protocol Stop: 04/27/19 12:18 Doxycycline Hyclate (Vibramycin) 100 mg PO BID [facility]; Protocol Stop: 04/07/19 11:44 Last Admin: 04/01/19 20:57 Dose: 100 mg Documented by: Ferrous Sulfate (Feosol) 325 mg PO DAILY@0700 [facility] Stop: 05/01/19 06:59 Last Admin: 04/01/19 06:46 Dose: 325 mg Documented by: Glucagon (Glucagen) 1 mg SQ UD PRN; Protocol PRN Reason: Hypoglycemia Protocol Stop: 04/27/19 12:18 Glucose (Glucose 40%) 15 - 30 gm PO UD PRN; Protocol PRN Reason: Hypoglycemia Protocol Stop: 04/27/19 12:18 Glucose (Dex4 Glucose) 4 - 8 tabs PO UD PRN; Protocol PRN Reason: Hypoglycemia Protocol Stop: 04/27/19 12:18 Guaifenesin (Mucinex) 1,200 mg PO Q12 [facility] Stop: 05/02/19 08:59 Magnesium Sulfate/Dextrose (Magnesium Sulfate / D5w) 1 gm in 100 mls @ 100 mls/hr IV ONE ONE Stop: 04/02/19 08:22 Insulin Aspart (Novolog Flexpen) 0 units SC ACHS [facility] Stop: 04/27/19 16:29 Last Admin: 04/01/19 20:58 Dose: 1 units Documented by: Insulin Glargine (Lantus Solostar Pen) 15 units SQ HS [facility] Stop: 04/27/19 20:59 Last Admin: 04/01/19 20:58 Dose: 15 units Documented by: Levalbuterol HCl (Xopenex 1.25mg/3ml Neb) 1.25 mg NEB Q8R [facility] Stop: 04/27/19 14:59 Last Admin: 04/02/19 07:04 Dose: 1.25 mg Documented by: Lisinopril (Zestril) 40 mg PO HS [facility] Stop: 04/27/19 20:59 Last Admin: 04/01/19 20:58 Dose: 40 mg Documented by: Metoprolol Tartrate (Lopressor) 50 mg PO QPM [facility] Stop: 04/30/19 20:59 Last Admin: 04/01/19 20:57 Dose: 50 mg Documented by: Metoprolol Tartrate (Lopressor) 75 mg PO DAILY [facility] Stop: 05/01/19 08:59 Last Admin: 04/01/19 08:03 Dose: 75 mg Documented by: Miscellaneous (Carbohydrates For Hypoglycemia) 15 - 30 gm PO UD PRN PRN Reason: Hypoglycemia Protocol Stop: 04/27/19 12:18 Nystatin (Mycostatin) 1 appln EXT PRN PRN PRN Reason: Affected Skin Folds Stop: 04/29/19 07:09 Potassium Chloride (Klor-Con M20) 20 meq PO QAM [facility] Stop: 05/02/19 08:59 Fluticasone/Salmeterol (Advair Diskus 250/50) 1 puffs INH BID [facility] Stop: 04/27/19 20:59 Last Admin: 04/01/19 20:59 Dose: 1 puffs Documented by: Simvastatin (Zocor) 20 mg PO HS [facility] Stop: 04/27/19 20:59 Last Admin: 04/01/19 20:57 Dose: 20 mg Documented by: Warfarin Sodium (Coumadin) 2 mg PO DAILY@1600 [facility] Stop: 04/30/19 21:59 Last Admin: 04/01/19 16:39 Dose: 2 mg Documented by: (1) COPD (chronic obstructive pulmonary disease) COPD type: COPD with acute exacerbation Qualified Code(s): J44.1 - Chronic obstructive pulmonary disease with (acute) exacerbation
[2019-04-02] MEDS ORDERED: MAGNESIUM SULFATE / D5W 1 GM/100 ML BAG IV ONE (08:00)
[2019-04-02] MEDS: METOPROLOL TARTRATE 25 MG TAB PO SCH (08:06)
[2019-04-02] MEDS: guaiFENesin 600 MG TABCR PO SCH ×2 (08:06→21:18)
[2019-04-02] MEDS: FLUTICASONE/SALMETEROL 250/50 (ADVAIR) 14 PUFF/1 INHALER INH SCH ×2 (08:06→21:16)
[2019-04-02] MEDS: DOXYCYCLINE HYCLATE 100 MG CAP PO SCH ×2 (08:06→21:18)
[2019-04-02] MEDS: FERROUS SULFATE 325 MG TAB PO SCH (08:07)
[2019-04-02] MEDS: POTASSIUM CHLORIDE 20 MEQ TABCR PO SCH (08:09)
[2019-04-02] MEDS: INSULIN ASPART 100 UNITS/ML 3 ML PEN SC SCH ×4 (08:30→21:15)
[2019-04-02] MEDS: WARFARIN SOD 2 MG TAB PO SCH (17:04)
[2019-04-02] MEDS ORDERED: FUROSEMIDE 40 MG TAB PO ONE (17:13)
[2019-04-02] MEDS: INSULIN GLARGINE SOLOSTAR 100 UNITS/ML 3 ML PEN SQ SCH (21:15)
[2019-04-02] MEDS: METOPROLOL TARTRATE 50 MG TAB PO SCH (21:17)
[2019-04-02] MEDS: SIMVASTATIN 20 MG TAB PO SCH (21:17)
[2019-04-02] MEDS: lisinopriL 40 MG TAB PO SCH (21:19)
[2019-04-02] MEDS ORDERED: ONDANSETRON 2 MG OD TAB PO PRN (21:27)
[2019-04-03] MEDS: FERROUS SULFATE 325 MG TAB PO SCH (06:07)
[2019-04-03 06:41] LABS: INR 2.6 (0.9-1.1); Prothrombin Time 24.8 Seconds (9.0-12.0)
[2019-04-03] MEDS: LEVALBUTEROL HCL 1.25 MG/3 ML NEB NEB SCH ×3 (06:55→22:08)
[2019-04-03 07:06] LABS: BUN Creatinine Ratio 20.6 (10-20); Calcium 8.6 mg/dl (8.5-10.1); Creatinine Clr Calc Pharmacy 54.2 ml/min; Est GFR (African American) 53.7; Est GFR (Non-African American) 46.3; Magnesium 1.7 mg/dl (1.8-2.4)
[2019-04-03] MEDS: guaiFENesin 600 MG TABCR PO SCH ×2 (08:07→21:00)
[2019-04-03] MEDS: POTASSIUM CHLORIDE 20 MEQ TABCR PO SCH (08:07)
[2019-04-03] MEDS: INSULIN ASPART 100 UNITS/ML 3 ML PEN SC SCH ×4 (08:08→21:06)
[2019-04-03] MEDS: FLUTICASONE/SALMETEROL 250/50 (ADVAIR) 14 PUFF/1 INHALER INH SCH ×2 (08:08→21:01)
[2019-04-03] MEDS: DOXYCYCLINE HYCLATE 100 MG CAP PO SCH ×2 (08:08→20:58)
[2019-04-03] MEDS ORDERED: MAGNESIUM SULFATE / D5W 1 GM/100 ML BAG IV ONE (08:30)
[2019-04-03] MEDS: METOPROLOL TARTRATE 25 MG TAB PO SCH (08:37)
--- NOTE | 2019-04-03 09:08 | Cardiology Progress Note ---
Date of Service April 03, 2019 Assessment & Plan (1) Chronic atrial fibrillation: rate controlled asymptommatic INR of 2.6 today, cont coumadin cont current doses of metoprolol (2) Tachycardia-bradycardia syndrome: stable hx of pacer implant with infection and subsequent extraction cont to follow as an outpatient (3) Diastolic CHF: does not examine as volume overloaded bicarb remains high at 40 no diuretics today cont to follow volume status clinically (4) Venous stasis ulcers of both lower extremities: (5) COPD (chronic obstructive pulmonary disease): slow to improve will check ABG given HCO3 of 40 cont treatment per primary team (6) Supratherapeutic INR: resolved coumadin restarted Subjective Pt seen and examined, states that she feels nauseated today. Sob improving but not yet back to baseline. Denies cp, palpitations, lightheadedness or dizziness. tele reviewed: afib, rates controlled Review of Systems Review of Systems: All systems reviewed & are unremarkable except as noted in HPI & below Physical Exam Physical Exam: General: Awake, alert and oriented x 3. No acute distress. HEENT: Normocephalic, atraumatic. Pupils equal, round and reactive to light and accommodation. Extraocular muscles are intact. Anicteric sclera. Moist mucous membranes. Neck: No JVD. No bruit. Cardiovascular: irregularly irregular, unable to appreciate murmur, rub or gallop. Pulmonary: Poor air movement. Scattered rhonchi and wheezing. No rales Abdomen: Bowel sounds x 4, soft. No rebound, guarding or tenderness. No organomegaly. Extremities: No clubbing, cyanosis. chronic venous stasis changes without pitting edema. +2 pedal pulses bilaterally. Skin: Warm and dry. Results & Data Vital Signs (Past 12 Hours) Vital Signs Temp Pulse Resp BP Pulse Ox 04/03/19 07:08 36.8 C 68 18 143/83 H 97 04/03/19 06:55 74 18 98 04/03/19 03:57 36.6 C 65 18 119/75 94 04/02/19 23:52 37.0 C 90 20 152/79 H 99 (1) Diastolic CHF Heart failure chronicity: acute on chronic Qualified Code(s): I50.33 - Acute on chronic diastolic (congestive) heart failure (2) COPD (chronic obstructive pulmonary disease) COPD type: COPD with acute exacerbation Qualified Code(s): J44.1 - Chronic obstructive pulmonary disease with (acute) exacerbation
[2019-04-03 09:35] LABS: Allen Test Pos (Pos); Base Excess ABG 14.5 mEq/L (-9-1.8); HCO3 ABG 43 mmol/L (19-24); PCO2 ABG 75 mmHg (35-46); PO2 ABG 78 mm/Hg (80-95); pH ABG 7.37 (7.35-7.45)
--- NOTE | 2019-04-03 15:17 | Hospitalist Progress Note ---
Date of Service April 03, 2019 Assessment & Plan (1) COPD (chronic obstructive pulmonary disease): 78 y/o F w/ hx of COPD, Chronic respiratory failure secondary to COPD who uses 2 liters/minute at night, and Type II Diabetes Mellitus with snf current use of insulin, Paroxysmal atrial fibrillation with history of 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 2018 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, Morbid Obesity, chronic lower extremity edema from chronic venous stasis who presents with shortness of breath and hypoxia after patient reports she was exerting herself more recently. Patient was started on BIPAP in the emergency room. Patient then transitioned to nasal cannula while speaking with hospitalist. Acute on Chronic respiratory failure with hypoxia secondary to acute on chronic diastolic heart failure, in the setting of poss. COPD exacerbation, and chronic hypercapnic respiratory failure (secondary to untreated obesity hypoventilation syndrome) -Chest X ray does not suggest pneumonia and does not suggest acute volume overload 1. Cardiomegaly without overt pulmonary edema. 2. Bibasilar opacities suggest atelectasis. 3. Ill-defined right upper lung opacity may be artifactual secondary to device external to the patient. - likely COPD exacerbation vs CHF exacerb - cont. doxycycline - nebulizer treatments as scheduled q8 hours, use levalbuterol to avoid exacerbation of tachycardia - continue home dose Advair - ISB, guaifenesin - titrate oxygen supplementation to 85 to 90% -Patient with loud wheezing, and no crackles on exam today (04/03), will provide steroids -Cardiology evaluated patient, after diuresis, patient is not back to baseline, ABG obtained and PCO2 significantly elevated, recommended pulmonology evaluation - Pulmonology consulted, believe this is chronic hypercarbic and hypoxic respiratory failure, secondary to undiagnosed and untreated obesity hyperventilation syndrome, recommend outpatient sleep study (however patient also mentioned that she would not comply), also recommend weight loss -telemetry, I&Os, daily weight, low salt diet -Previously on Lasix IV twice daily, her lower extremity edema much improved in the past 3 days -incr. Cr, contr. alk, IV diuretics stopped, switched to lower p.o. 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 alk., Switched to 40 mg p.o. yesterday, will continue to evaluate daily the need for diuretics -patient has history of Tachy-job syndrome so will try to avoid excessive metoprolol beta blockade if possible -avoid hydralazine for now to avoid reflex tachycardia -held coumadin b/c on admission INR was 3.8, currently INR 2.6, restarted warfarin(03/31) -cardiology consulted, appreciate their input (3) Chronic venous insufficiency: -small abrasions from chronic venous insufficiency -history of MSSA in prior history of surface wound cultures -repeated would culture - positive for Coag negative staph and corynebacterium -patient has multiple listed drug allergies but she is a poor historian and cannot confirm drug reactions or severity -will continue antibiotics as Doxycyclin, switched to PO (100 mg BID) -stopped furosemide 40 mg IV bid, switch to p.o., will evaluate daily need for diuretics -LE edema much improved, important to control the edema in order to heal the skin and prevent future cellulitis -PT/OT evaluation -cleary placed in the ED as short term to avoid urine to legs -wound care q nursing shift, wound nursing -Discussed leg elevation to help with edema (4) DM type 2 (diabetes mellitus, type 2): Diabetes type 2 with terminal carman current use of insulin -at home, patient reports that she takes aspart 10 units at breakfast and 12 units for lunch and 10 units for dinner -at home she also reports Lantus 15 units as twice a day instead of qHS as listed in medical records in the past -will check HBA1c -Lantus as 15 units qHS for now and place on sliding scale insulin and titrate up scheduled insulin based on glucose levels -continue lisinopril 40 mg daily DVT prophylaxis: On Coumadin, INR therapeutic Full Code Status Patient's son [phone] Subjective No acute events overnight, patient is lying in bed, in no acute distress, working with respiratory therapist. Denies fevers, chills, chest pain, palpitations, abdominal pain, nausea or vomiting. She has occasional loud cough with breathing treatments/or on deep inspiration. Patient evaluated by cardiology, ABG obtained, due to elevated PCO2, and breathing not back to baseline despite treatment, recommend pulmonary evaluation. Review of Systems Review of Systems: All systems reviewed & are unremarkable except as noted in HPI & below Constitutional: no fever and no chills Respiratory: + cough; no pain on inspiration Cardiovascular: + dyspnea on exertion and + edema; no chest pain and no palpitations Gastrointestinal: no abdominal pain, no nausea and no vomiting Physical Exam Physical Exam: Elderly obese female, lying in bed, in no acute distress Constitutional: well developed and well nourished; no acute distress Eyes: PERRL, conjunctivae normal, anicteric sclerae EOM intact bilaterally ENMT: external ear and nose normal, oropharynx normal Neck: normal visual inspection Respiratory: no respiratory distress Auscultation: + diminished lung sounds and + wheezes (diffuse ); no rhonchi Cardiovascular: Irregular, no murmurs Chest (Breasts): Chest: normal inspection of chest Gastrointestinal (Abdomen): normal bowel sounds, soft, nontender, no hepatosplenomegaly Musculoskeletal: Head/Neck/Chest: normocephalic, head atraumatic and neck supple Skin: Bilateral 1+ lower extremity edema, much improved, with serosanguineous drainage, scaly skin and abrasions, chronic discoloration from venous stasis Neurologic: PERRL, EOMI, accommodation nl, no face palsy, no dysarthria Psychiatric: A+Ox3, euthymic affect Results & Data Vital Signs (Past 12 Hours) Vital Signs Temp Pulse Pulse Resp BP Pulse Ox 04/03/19 14:43 89 18 95 04/03/19 09:00 89 04/03/19 07:08 36.8 C 68 18 143/83 H 97 04/03/19 06:55 74 18 98 04/03/19 03:57 36.6 C 65 18 119/75 94 Laboratory Results 04/03/19 04/03/19 04/03/19 Range/Units 10:56 09:22 07:35 PT (9.0-12.0) Seconds INR (0.9-1.1) ABG pH 7.37 (7.35-7.45) ABG pCO2 75 H (35-46) mmHg ABG pO2 78 L (80-95) mm/Hg ABG HCO3 43 H (19-24) mmol/L ABG O2 Saturation 95.0 (90-95) % ABG Base Excess 14.5 H (-9-1.8) mEq/L Vick Test Pos (Pos) Barometric Pressure 733.0 mm/Hg Oxygen Given 2L Sodium (136-145) mmol/L Potassium (3.5-5.1) mmol/L Chloride (98-107) mmol/L Carbon Dioxide (21-32) mmol/L Anion Gap (3-11) BUN (7-18) mg/dl Creatinine (0.6-1.2) mg/dl Est Cr Clr Drug Dosing ml/min Est GFR ( Amer) Est GFR (Non-Af Amer) BUN/Creatinine Ratio (10-20) Glucose (70-99) mg/dl POC Glucose 175 H 143 H (70-99) Calcium (8.5-10.1) mg/dl Magnesium (1.8-2.4) mg/dl 04/03/19 04/03/19 04/02/19 Range/Units 06:10 06:10 20:05 PT 24.8 H (9.0-12.0) Seconds INR 2.6 H (0.9-1.1) ABG pH (7.35-7.45) ABG pCO2 (35-46) mmHg ABG pO2 (80-95) mm/Hg ABG HCO3 (19-24) mmol/L ABG O2 Saturation (90-95) % ABG Base Excess (-9-1.8) mEq/L Vick Test (Pos) Barometric Pressure mm/Hg Oxygen Given Sodium 142 (136-145) mmol/L Potassium 4.0 (3.5-5.1) mmol/L Chloride 98 (98-107) mmol/L Carbon Dioxide 40 H (21-32) mmol/L Anion Gap 4.0 (3-11) BUN 23 H (7-18) mg/dl Creatinine 1.14 (0.6-1.2) mg/dl Est Cr Clr Drug Dosing 54.2 ml/min Est GFR ( Amer) 53.7 Est GFR (Non-Af Amer) 46.3 BUN/Creatinine Ratio 20.6 H (10-20) Glucose 137 H (70-99) mg/dl POC Glucose 184 H (70-99) Calcium 8.6 (8.5-10.1) mg/dl Magnesium 1.7 L (1.8-2.4) mg/dl 04/02/19 Range/Units 17:05 PT (9.0-12.0) Seconds INR (0.9-1.1) ABG pH (7.35-7.45) ABG pCO2 (35-46) mmHg ABG pO2 (80-95) mm/Hg ABG HCO3 (19-24) mmol/L ABG O2 Saturation (90-95) % ABG Base Excess (-9-1.8) mEq/L Vick Test (Pos) Barometric Pressure mm/Hg Oxygen Given Sodium (136-145) mmol/L Potassium (3.5-5.1) mmol/L Chloride (98-107) mmol/L Carbon Dioxide (21-32) mmol/L Anion Gap (3-11) BUN (7-18) mg/dl Creatinine (0.6-1.2) mg/dl Est Cr Clr Drug Dosing ml/min Est GFR ( Amer) Est GFR (Non-Af Amer) BUN/Creatinine Ratio (10-20) Glucose (70-99) mg/dl POC Glucose 113 H (70-99) Calcium (8.5-10.1) mg/dl Magnesium (1.8-2.4) mg/dl Medications Administered Current Inpatient Medications Dextrose (Dextrose 50%) 25 - 50 ml IV UD PRN; Protocol PRN Reason: Hypoglycemia Protocol Stop: 04/27/19 12:18 Doxycycline Hyclate (Vibramycin) 100 mg PO BID [facility]; Protocol Stop: 04/07/19 11:44 Last Admin: 04/03/19 08:08 Dose: 100 mg Documented by: Ferrous Sulfate (Feosol) 325 mg PO DAILY@0700 [facility] Stop: 05/01/19 06:59 Last Admin: 04/03/19 06:07 Dose: 325 mg Documented by: Glucagon (Glucagen) 1 mg SQ UD PRN; Protocol PRN Reason: Hypoglycemia Protocol Stop: 04/27/19 12:18 Glucose (Glucose 40%) 15 - 30 gm PO UD PRN; Protocol PRN Reason: Hypoglycemia Protocol Stop: 04/27/19 12:18 Glucose (Dex4 Glucose) 4 - 8 tabs PO UD PRN; Protocol PRN Reason: Hypoglycemia Protocol Stop: 04/27/19 12:18 Guaifenesin (Mucinex) 1,200 mg PO Q12 ERIC Stop: 05/02/19 08:59 Last Admin: 04/03/19 08:07 Dose: 1,200 mg Documented by: Insulin Aspart (Novolog Flexpen) 0 units SC ACHS [facility] Stop: 04/27/19 16:29 Last Admin: 04/03/19 11:54 Dose: 2 units Documented by: Insulin Glargine (Lantus Solostar Pen) 15 units SQ HS [facility] Stop: 04/27/19 20:59 Last Admin: 04/02/19 21:15 Dose: 15 units Documented by: Levalbuterol HCl (Xopenex 1.25mg/3ml Neb) 1.25 mg NEB Q8R [facility] Stop: 04/27/19 14:59 Last Admin: 04/03/19 14:43 Dose: 1.25 mg Documented by: Lisinopril (Zestril) 40 mg PO HS [facility] Stop: 04/27/19 20:59 Last Admin: 04/02/19 21:19 Dose: 40 mg Documented by: Metoprolol Tartrate (Lopressor) 50 mg PO QPM [facility] Stop: 04/30/19 20:59 Last Admin: 04/02/19 21:17 Dose: 50 mg Documented by: Metoprolol Tartrate (Lopressor) 75 mg PO DAILY [facility] Stop: 05/01/19 08:59 Last Admin: 04/03/19 08:37 Dose: 75 mg Documented by: Miscellaneous (Carbohydrates For Hypoglycemia) 15 - 30 gm PO UD PRN PRN Reason: Hypoglycemia Protocol Stop: 04/27/19 12:18 Nystatin (Mycostatin) 1 appln EXT PRN PRN PRN Reason: Affected Skin Folds Stop: 04/29/19 07:09 Ondansetron HCl (Zofran Odt) 2 mg PO Q4H PRN PRN Reason: Nausea Stop: 05/02/19 21:26 Last Admin: 04/03/19 06:07 Dose: 2 mg Documented by: Potassium Chloride (Klor-Con M20) 20 meq PO QAM [facility] Stop: 05/02/19 08:59 Last Admin: 04/03/19 08:07 Dose: 20 meq Documented by: Fluticasone/Salmeterol (Advair Diskus 250/50) 1 puffs INH BID [facility] Stop: 04/27/19 20:59 Last Admin: 04/03/19 08:08 Dose: 1 puffs Documented by: Simvastatin (Zocor) 20 mg PO HS [facility] Stop: 04/27/19 20:59 Last Admin: 04/02/19 21:17 Dose: 20 mg Documented by: Warfarin Sodium (Coumadin) 2 mg PO DAILY@1600 [facility] Stop: 04/30/19 21:59 Last Admin: 04/02/19 17:04 Dose: 2 mg Documented by: (1) COPD (chronic obstructive pulmonary disease) COPD type: COPD with acute exacerbation Qualified Code(s): J44.1 - Chronic obstructive pulmonary disease with (acute) exacerbation
[2019-04-03] MEDS ORDERED: methylPREDNISolone 40 MG in SYRINGE 0 ML IV STA (15:29)
[2019-04-03] MEDS: WARFARIN SOD 2 MG TAB PO SCH (16:48)
--- NOTE | 2019-04-03 17:27 | Pulmonary Consultation ---
Date of Consultation April 03, 2019 Assessment & Plan (1) Hypercapnic respiratory failure, chronic: Impression: 78-year-old female with chronic hypercarbic respiratory failure. Suspect this likely represents obesity hypoventilation syndrome. I discussed with the patient need for sleep study and potential therapy including noninvasive positive pressure ventilation. She states that she would not pursue a sleep study and is not amenable to a trial of BiPAP or CPAP. I do not think this is obstructive lung disease although we do not have PFTs available to review. There is no indication for steroids or antibiotics from a pulmonary perspective. Recommendations: 1. Chronic hypercarbic and hypoxemic respiratory failure: Secondary to undiagnosed and untreated obesity hypoventilation syndrome. Recommend outpatient sleep study. The patient states she will not comply with this. Re commended trial of nocturnal positive airway pressure. Again the patient states that she will not comply. Unfortunately we have little other recourse. Could discuss tracheostomy however I suspect the patient would likely decline that as well as she has declined much less invasive alternatives. Weight loss recommended. The patient is not a candidate for bariatric surgery given her advanced age nutritional consult for weight loss may be appropriate. 2. Continue oxygen titrated to keep saturations 85 to 90%. 3. I suspect the patient likely has pulmonary hypertension which is WHO class II and III. Her echocardiogram did not comment on diastolic filling parameters or pulmonary hypertension. Would not recommend right heart catheterization. Diuretics to maintain euvolemia. 4. Reported COPD: The patient is not bronchospastic. Would not recommend systemic steroids. Rhonchi dilators may be used if the patient feels they are clinically beneficial. We will continue to follow but unfortunately I think we are going to have little to offer from a pulmonary standpoint. (2) Hypoxemic respiratory failure, chronic: (3) Obesity hypoventilation syndrome: History of Present Illness Attending Physician: Todd Gtz MD History of Present Illness Asked by hospitalist to evaluate this patient for pulmonary etiologies of her respiratory complaints. History is obtained from review the electronic medical record as well as interview the patient at bedside in discussion with the hospitalist. The patient is a 78-year-old female with morbid obesity who carries a diagnosis of obstructive lung disease. She is unsure if she is ever had pulmonary function testing performed previously. She does have a history of tobacco abuse but quit smoking several years ago. She does have a history of chronic hypoxemic respiratory failure and uses oxygen at 2 L/min chronically. She is never been studied with a sleep study previously and states that she never will be. She presented to the emergency room on March 28 with shortness of breath and lower extremity edema as well as hypoxemia. She was placed on BiPAP and then transition to nasal cannula. She was admitted to the floor and seen by cardiology. She was noted to be in atrial fibrillation. She had a history of tacky bradycardia syndrome with pacemaker previously. Coumadin was withheld. She was diuresed. 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 This revealed a compensated respiratory acidosis which is likely chronic in nature and secondary to obesity hypoventilation syndrome. Pulmonary consultation was requested. The patient does not report significant cough or sputum production. She does not wheeze. Allergies Allergy/AdvReac Type Severity Reaction Status Date / Time Cephalosporins Allergy Unknown Unknown Verified 03/28/19 10:45 Cipro Allergy Unknown RASH Verified 06/10/16 18:14 ciprofloxacin Allergy Unknown RASH Verified 03/28/19 10:45 clindamycin Allergy Unknown RASH Verified 03/28/19 10:45 erythromycin base Allergy Unknown Unknown Verified 03/28/19 10:45 metformin Allergy Unknown EDEMA FACE Unverified 03/28/19 10:45 AND HANDS, ITCHY Penicillins Allergy Unknown Unknown Verified 03/28/19 10:45 Sulfa (Sulfonamide Allergy Unknown . Verified 03/28/19 10:45 Antibiotics) Home Medications Home Medications Medication Instructions Recorded Confirmed Type hydralazine 50 mg PO BID 05/08/18 03/28/19 History lisinopril 40 mg PO HS 05/08/18 03/28/19 History magnesium oxide 400 mg PO BIDM 05/08/18 03/28/19 History omeprazole 20 mg PO HS 05/08/18 03/28/19 History simvastatin 20 mg PO HS 05/08/18 03/28/19 History ferrous sulfate [iron] 325 mg PO QAM 07/30/18 03/28/19 History furosemide 20 mg PO Q2D 07/30/18 03/28/19 History insulin aspart U- 100 100 unit/mL 12 units SQ QDL ml 10/03/18 03/28/19 History subcutaneous solution insulin glargine (U-100) 100 15 units SUBCUT HS ml 10/03/18 03/28/19 History unit/mL (3 mL) subcutaneous pen ipratropium 20 mcg-albuterol 100 1 puffs INH QID 10/03/18 03/28/19 History mcg/actuation mist for inhalation warfarin 2 mg tablet 2 mg PO QDD 10/03/18 03/28/19 History doxycycline hyclate 100 mg PO BID 03/28/19 03/28/19 History fluticasone propion-salmeterol 1 inh INHALATION BID 03/28/19 03/28/19 History [Wixela Inhub] insulin aspart U-100 [Novolog 10 unit SUBCUT BIDM 03/28/19 03/28/19 History U-100 Insulin aspart] Patient History Medical History DM type 2 (diabetes mellitus, type 2) (Chronic) COPD (chronic obstructive pulmonary disease) (Chronic) Dyslipidemia (Chronic) Diastolic CHF (Chronic) CAD (coronary artery disease) (Chronic) Osteoarthritis (Chronic) Nocturnal hypoxemia (Chronic) A-fib (Chronic) CHF (congestive heart failure) (Chronic) COPD (chronic obstructive pulmonary disease) (Chronic) Type 2 diabetes mellitus (Chronic) Surgical History History of hysterectomy (Chronic) S/P adenoidectomy (Chronic) History of cataract surgery (Chronic) History of total left knee replacement (Chronic) Family History Other No pertinent family history Social History Preferred Language: Hungarian Communication Ability: Effective Visual Impairment: No Limitations Hearing Ability: Normal 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 current occupational status: retired Other Information That Helps Us Care for You: No Feels Safe at Home: Yes Safety Concerns: Feels Safe At This Time Smoking Status: Former smoker Tobacco Type: cigarettes ; Second Hand Exposure: Yes ; Hx Alcohol Use: No Hx Substance Use: No Review of Systems Review of Systems: Difficult to obtain as the patient is not forthcoming in history Physical Exam Constitutional: Morbidly obese. Limits sensitivity exam. She is awake alert sitting upright in bed eating a meal Neck: trachea midline, no thyromegaly Respiratory: Diminished breath sounds throughout without wheezing Cardiovascular: RRR, no murmur, no edema Extremities: + edema Gastrointestinal (Abdomen): Limited exam due to morbid obesity Psychiatric: A+Ox3, euthymic affect Results & Data Vital Signs (Past 12 Hours) Vital Signs Temp Pulse Pulse Resp BP BP Pulse Ox 04/03/19 15:58 36.7 C 96 H 20 126/72 91 04/03/19 14:43 89 18 95 04/03/19 09:00 89 04/03/19 07:08 36.8 C 68 18 143/83 H 97 04/03/19 06:55 74 18 98 Laboratory Results 04/01/19 06:14 04/03/19 06:10 Diagnostic Findings Films independently reviewed Chest x-ray 03/28/2019 was reviewed. Cardiomegaly is noted with mild prominence of the pulmonary vasculature. No pleural effusion or airspace opacity. No increased airspace opacities. CT angiogram from July 2018 showed no filling defects. Basilar atelectasis/fibrosis was noted. Transesophageal echocardiogram July 2018 showed preserved ejection fraction with no significant valvular abnormalities PG Care Time/CCT Total # of Minutes Spent Total Time Spent with Patient: Total time spent is greater than 50% in coordination of care (as documented) at patient's floor/unit and/or counseling patient:
[2019-04-03] MEDS: lisinopriL 40 MG TAB PO SCH (20:58)
[2019-04-03] MEDS: METOPROLOL TARTRATE 50 MG TAB PO SCH (20:59)
[2019-04-03] MEDS: SIMVASTATIN 20 MG TAB PO SCH (21:00)
[2019-04-03] MEDS: INSULIN GLARGINE SOLOSTAR 100 UNITS/ML 3 ML PEN SQ SCH (21:06)
[2019-04-04] MEDS: FERROUS SULFATE 325 MG TAB PO SCH (05:58)
[2019-04-04 07:20] LABS: BUN Creatinine Ratio 24.9 (10-20); Creatinine Clr Calc Pharmacy 60.9 ml/min; Est GFR (African American) 65.3; Est GFR (Non-African American) 56.3; Potassium 4.6 mmol/L (3.5-5.1)
[2019-04-04] MEDS: LEVALBUTEROL HCL 1.25 MG/3 ML NEB NEB SCH ×3 (07:30→23:14)
[2019-04-04] MEDS: INSULIN ASPART 100 UNITS/ML 3 ML PEN SC SCH ×4 (08:07→20:33)
[2019-04-04] MEDS: DOXYCYCLINE HYCLATE 100 MG CAP PO SCH ×2 (08:08→20:34)
[2019-04-04] MEDS: FLUTICASONE/SALMETEROL 250/50 (ADVAIR) 14 PUFF/1 INHALER INH SCH ×2 (08:08→20:31)
[2019-04-04] MEDS: POTASSIUM CHLORIDE 20 MEQ TABCR PO SCH (08:08)
[2019-04-04] MEDS: METOPROLOL TARTRATE 25 MG TAB PO SCH (08:08)
[2019-04-04] MEDS: guaiFENesin 600 MG TABCR PO SCH ×2 (08:08→20:32)
[2019-04-04] MEDS ORDERED: ALBUT/IPRATROP 3MG/0.5MG NEB 3 ML VIAL NEB PRN (08:17)
--- NOTE | 2019-04-04 08:19 | Pulmonology Progress Note ---
Date of Service April 04, 2019 Assessment & Plan (1) Hypercapnic respiratory failure, chronic: Impression: 78-year-old female with chronic hypercarbic respiratory failure. Suspect this likely represents obesity hypoventilation syndrome. Patient continues to decline evaluation for sleep disordered breathing and states she is unwilling to consider BiPAP or CPAP. Recommendations: 1. Chronic hypercarbic and hypoxemic respiratory failure: Secondary to undiagnosed and untreated obesity hypoventilation syndrome. Recommend outpatient sleep study. The patient states she will not comply with this. Recommended trial of nocturnal positive airway pressure. Again the patient states that she will not comply. Unfortunately we have little other recourse. Could discuss tracheostomy however I suspect the patient would likely decline that as well as she has declined much less invasive alternatives. Weight loss recommended. The patient is not a candidate for bariatric surgery given her advanced age. Nutritional consult for weight loss may be appropriate. 2. Continue oxygen titrated to keep saturations 85 to 90%. Given her hypercarbia, no need to try and titrate oxygen saturations above this. 3. I suspect the patient likely has pulmonary hypertension which is WHO class II and III. Her echocardiogram did not comment on diastolic filling parameters or pulmonary hypertension. Would not recommend right heart catheterization. Diuretics to maintain euvolemia. 4. Reported COPD: More rhonchorous today. She uses DuoNeb 4 times a day at home as well as a generic form of Advair. Would not recommend systemic steroids. Add Spiriva. DuoNeb's as needed. The patient needs to be up and mobile and out of bed to chair as much as possible We will continue to follow but unfortunately I think we are going to have little to offer from a pulmonary standpoint. (2) Hypoxemic respiratory failure, chronic: (3) Obesity hypoventilation syndrome: Subjective No acute issues overnight. The patient feels that she is slowly improving. She is coughing and expectorating phlegm. She does state that the inhalers are beneficial. No chest pain palpitations. She is sitting up eating breakfast. Review of Systems Review of Systems: Unchanged from prior Physical Exam Neck: trachea midline, no thyromegaly Respiratory: Few coarse rhonchi bilaterally with occasional mid-to-late and expiratory wheezes Cardiovascular: RRR, no murmur, no edema Extremities: + edema Psychiatric: A+Ox3, euthymic affect Results & Data Vital Signs (Past 12 Hours) Vital Signs Temp Pulse Pulse Resp BP Pulse Ox 04/04/19 07:33 91 H 20 98 04/04/19 07:21 36.6 C 98 H 18 132/85 97 04/04/19 04:00 36.5 C 101 H 20 147/88 H 100 04/04/19 00:03 62 04/03/19 23:47 36.5 C 74 20 123/80 90 04/03/19 22:08 78 16 98 PG Care Time/CCT Total # of Minutes Spent Total Time Spent with Patient: Total time spent is greater than 50% in coordination of care (as documented) at patient's floor/unit and/or counseling patient:
[2019-04-04] MEDS: TIOTROPIUM BROMIDE 5 PUFF/90 MCG INH INH SCH (08:43)
--- NOTE | 2019-04-04 15:27 | Cardiology Progress Note ---
Date of Service April 04, 2019 Assessment & Plan (1) Chronic atrial fibrillation: rate controlled asymptommatic INR of 2.6 today, cont coumadin cont current doses of metoprolol (2) Tachycardia-bradycardia syndrome: stable hx of pacer implant with infection and subsequent extraction cont to follow as an outpatient (3) Diastolic CHF: does not examine as volume overloaded We will plan on resuming furosemide 20 mill grams every other day as per prior to hospitalization. Discontinue potassium supplement begin spironolactone 12.5 mill grams p.o. daily (4) Venous stasis ulcers of both lower extremities: (5) COPD (chronic obstructive pulmonary disease): slow to improve will check ABG given HCO3 of 40 cont treatment per primary team (6) Supratherapeutic INR: resolved coumadin restarted Subjective Patient seen and examined, chart, medications, telemetry reviewed. Patient sitting out of bed in chair feels improved today denies chest pains or shortness of breath. Is anxious to increase activity Physical Exam Constitutional: + ill appearing; no acute distress Eyes: PERRL, conjunctivae normal, anicteric sclerae ENMT: external ear and nose normal, oropharynx normal Neck: trachea midline, no thyromegaly Respiratory: Auscultation: + diminished lung sounds and + rhonchi (Coarse rhonchi with cough present) Cardiovascular: Rate/Rhythm: + irregularly irregular Heart Sounds: normal S1 and normal S2; no gallop Extremities: + edema Gastrointestinal (Abdomen): normal bowel sounds, soft, nontender, no hepatosplenomegaly Musculoskeletal: Chronic indurated and stasis changes in the lower extremities with sean edema Results & Data Vital Signs (Past 12 Hours) Vital Signs Temp Pulse Pulse Resp BP Pulse Ox 04/04/19 15:09 88 16 96 04/04/19 15:00 36.6 C 86 16 135/70 94 04/04/19 11:50 36.6 C 99 H 18 94 04/04/19 08:45 91 H 04/04/19 07:33 91 H 20 98 04/04/19 07:21 36.6 C 98 H 18 132/85 97 04/04/19 04:00 36.5 C 101 H 20 147/88 H 100 Laboratory Results Laboratory Results - last 24 hr 04/03/19 04/03/19 04/04/19 16:40 20:35 06:25 Sodium 141 Potassium 4.6 Chloride 100 Carbon Dioxide 39 H Anion Gap 2.0 L BUN 24 H Creatinine 0.97 Est Cr Clr Drug Dosing 60.9 Est GFR ( Amer) 65.3 Est GFR (Non-Af Amer) 56.3 BUN/Creatinine Ratio 24.9 H Glucose 233 H POC Glucose 134 H 236 H Calcium 9.0 Magnesium 2.0 04/04/19 04/04/19 07:21 11:16 Sodium Potassium Chloride Carbon Dioxide Anion Gap BUN Creatinine Est Cr Clr Drug Dosing Est GFR ( Amer) Est GFR (Non-Af Amer) BUN/Creatinine Ratio Glucose POC Glucose 219 H 183 H Calcium Magnesium (1) Diastolic CHF Heart failure chronicity: acute on chronic Qualified Code(s): I50.33 - Acute on chronic diastolic (congestive) heart failure (2) COPD (chronic obstructive pulmonary disease) COPD type: COPD with acute exacerbation Qualified Code(s): J44.1 - Chronic obstructive pulmonary disease with (acute) exacerbation
[2019-04-04] MEDS: WARFARIN SOD 2 MG TAB PO SCH (16:47)
--- NOTE | 2019-04-04 20:08 | Hospitalist Progress Note ---
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 Patient was started on BIPAP in the emergency room. Patient then transitioned to nasal cannula while speaking with hospitalist. Acute on Chronic respiratory failure with hypoxia secondary to acute on chronic diastolic heart failure, in the setting of poss. COPD exacerbation, and chronic hypercapnic respiratory failure (secondary to untreated obesity hypoventilation syndrome) -Chest X ray does not suggest pneumonia and does not suggest acute volume overload 1. Cardiomegaly without overt pulmonary edema. 2. Bibasilar opacities suggest atelectasis. 3. Ill-defined right upper lung opacity may be artifactual secondary to device external to the patient. - likely COPD exacerbation vs CHF exacerb - treated w/ doxycycline during this admission, will d/c tmrw AM - nebulizer treatments as scheduled q8 hours, use levalbuterol to avoid exacerbation of tachycardia - continue home dose Advair - ISB, guaifenesin - titrate oxygen supplementation to 85 to 90% - added tiotropium -Cardiology evaluated patient, after diuresis, patient is not back to baseline, ABG obtained and PCO2 significantly elevated, recommended pulmonology evaluation - Pulmonology consulted, believe this is chronic hypercarbic and hypoxic respiratory failure, secondary to undiagnosed and untreated obesity hyperventilation syndrome, recommend outpatient sleep study (however patient also mentioned that she would not comply), also recommend weight loss - pt continues to have rhonchorous lung sounds, will obtain CXR, 2 step test tmrw, will follow up on pulm. recs -telemetry, I&Os, daily weight, low salt diet -Previously on Lasix IV twice daily, her lower extremity edema much improved in the past 4 days -incr. Cr, contr. alk, IV diuretics stopped, switched to lower p.o. 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 alk., Switched to p.o., will continue to evaluate daily the need for diuretics (likely will need small dose on daily basis) -patient has history of Tachy-job syndrome so will try to avoid excessive metoprolol beta blockade if possible -avoid hydralazine for now to avoid reflex tachycardia -held coumadin b/c on admission INR was 3.8, most recent INR 2.6, restarted warfarin (03/31) -cardiology consulted, appreciate their input (3) Chronic venous insufficiency: -small abrasions from chronic venous insufficiency -history of MSSA in prior history of surface wound cultures -repeated would culture - positive for Coag negative staph and corynebacterium -patient has multiple listed drug allergies but she is a poor historian and cannot confirm drug reactions or severity -treated w/Doxycyclin 100 mg BID, since admission (03/28), course finished, will d/c tmrw AM -stopped furosemide 40 mg IV bid, switch to p.o., will evaluate daily need for diuretics -LE edema much improved, important to control the edema in order to heal the skin and prevent future cellulitis -PT/OT evaluation -cleary placed in the ED as short term to avoid urine to legs, will D/C Cle[place] -wound care q nursing shift, wound nursing -Discussed leg elevation to help with edema (4) DM type 2 (diabetes mellitus, type 2): Diabetes type 2 with retirement current use of insulin -at home, patient reports that she takes aspart 10 units at breakfast and 12 units for lunch and 10 units for dinner -at home she also reports Lantus 15 units as twice a day instead of qHS as listed in medical records in the past -will check HBA1c -Lantus as 15 units qHS for now and place on sliding scale insulin and titrate up scheduled insulin based on glucose levels -continue lisinopril 40 mg daily DVT prophylaxis: On Coumadin, INR therapeutic Full Code Status Patient's son [phone] Subjective No acute events overnight. Denies chest pain, palpitations, incr. shortness of breath, abd. pain, nausea or vomiting. Pt sitting comfortably in a chair, using suppl. O2. Review of Systems Review of Systems: All systems reviewed & are unremarkable except as noted in HPI & below Constitutional: no fever and no chills Respiratory: + cough and + dyspnea on exertion Cardiovascular: + edema; no chest pain and no palpitations Gastrointestinal: no abdominal pain, no nausea and no vomiting Physical Exam Physical Exam: Elderly obese female, sitting up in a chair, in no acute distress, using suppl. O2 via NC Constitutional: well developed and well nourished; no acute distress Eyes: PERRL, conjunctivae normal, anicteric sclerae EOM intact bilaterally ENMT: external ear and nose normal, oropharynx normal Neck: normal visual inspection Respiratory: no respiratory distress Auscultation: + diffuse rhonchi Cardiovascular: Irregular, no murmurs Chest (Breasts): Chest: normal inspection of chest Gastrointestinal (Abdomen): normal bowel sounds, soft, nontender, no hepatosplenomegaly Musculoskeletal: Head/Neck/Chest: normocephalic, head atraumatic and neck supple Skin: Bilateral 1+ lower extremity edema, much improved, with serosanguineous drainage, scaly skin and abrasions, chronic discoloration from venous stasis Neurologic: PERRL, EOMI, accommodation nl, no face palsy, no dysarthria Psychiatric: A+Ox3, euthymic affect Results & Data Vital Signs (Past 12 Hours) Vital Signs Temp Pulse Pulse Resp BP Pulse Ox 04/04/19 19:23 92 H 04/04/19 19:09 36.4 C L 96 H 18 121/67 96 04/04/19 15:09 88 16 96 04/04/19 15:00 36.6 C 86 16 135/70 94 04/04/19 11:50 36.6 C 99 H 18 94 04/04/19 08:45 91 H Laboratory Results 04/04/19 04/04/19 04/04/19 Range/Units 16:27 11:16 07:21 Sodium (136-145) mmol/L Potassium (3.5-5.1) mmol/L Chloride (98-107) mmol/L Carbon Dioxide (21-32) mmol/L Anion Gap (3-11) BUN (7-18) mg/dl Creatinine (0.6-1.2) mg/dl Est Cr Clr Drug Dosing ml/min Est GFR ( Amer) Est GFR (Non-Af Amer) BUN/Creatinine Ratio (10-20) Glucose (70-99) mg/dl POC Glucose 122 H 183 H 219 H (70-99) Calcium (8.5-10.1) mg/dl Magnesium (1.8-2.4) mg/dl 04/04/19 04/03/19 Range/Units 06:25 20:35 Sodium 141 (136-145) mmol/L Potassium 4.6 (3.5-5.1) mmol/L Chloride 100 (98-107) mmol/L Carbon Dioxide 39 H (21-32) mmol/L Anion Gap 2.0 L (3-11) BUN 24 H (7-18) mg/dl Creatinine 0.97 (0.6-1.2) mg/dl Est Cr Clr Drug Dosing 60.9 ml/min Est GFR ( Amer) 65.3 Est GFR (Non-Af Amer) 56.3 BUN/Creatinine Ratio 24.9 H (10-20) Glucose 233 H (70-99) mg/dl POC Glucose 236 H (70-99) Calcium 9.0 (8.5-10.1) mg/dl Magnesium 2.0 (1.8-2.4) mg/dl Medications Administered Current Inpatient Medications Albuterol (Duoneb) 3 ml NEB Q4R PRN PRN Reason: Wheezing Stop: 05/04/19 10:59 Dextrose (Dextrose 50%) 25 - 50 ml IV UD PRN; Protocol PRN Reason: Hypoglycemia Protocol Stop: 04/27/19 12:18 Doxycycline Hyclate (Vibramycin) 100 mg PO BID [facility]; Protocol Stop: 04/07/19 11:44 Last Admin: 04/04/19 08:08 Dose: 100 mg Documented by: Ferrous Sulfate (Feosol) 325 mg PO DAILY@0700 [facility] Stop: 05/01/19 06:59 Last Admin: 04/04/19 05:58 Dose: 325 mg Documented by: Furosemide (Lasix) 20 mg PO MoWeFr@0900 [facility] Stop: 05/05/19 08:59 Glucagon (Glucagen) 1 mg SQ UD PRN; Protocol PRN Reason: Hypoglycemia Protocol Stop: 04/27/19 12:18 Glucose (Glucose 40%) 15 - 30 gm PO UD PRN; Protocol PRN Reason: Hypoglycemia Protocol Stop: 04/27/19 12:18 Glucose (Dex4 Glucose) 4 - 8 tabs PO UD PRN; Protocol PRN Reason: Hypoglycemia Protocol Stop: 04/27/19 12:18 Guaifenesin (Mucinex) 1,200 mg PO Q12 [facility] Stop: 05/02/19 08:59 Last Admin: 04/04/19 08:08 Dose: 1,200 mg Documented by: Insulin Aspart (Novolog Flexpen) 0 units SC ACHS [facility] Stop: 04/27/19 16:29 Last Admin: 04/04/19 17:46 Dose: Not Given Documented by: Insulin Glargine (Lantus Solostar Pen) 15 units SQ HS [facility] Stop: 04/27/19 20:59 Last Admin: 04/03/19 21:06 Dose: 15 units Documented by: Levalbuterol HCl (Xopenex 1.25mg/3ml Neb) 1.25 mg NEB Q8R [facility] Stop: 04/27/19 14:59 Last Admin: 04/04/19 15:04 Dose: 1.25 mg Documented by: Lisinopril (Zestril) 40 mg PO HS [facility] Stop: 04/27/19 20:59 Last Admin: 04/03/19 20:58 Dose: 40 mg Documented by: Metoprolol Tartrate (Lopressor) 50 mg PO QPM [facility] Stop: 04/30/19 20:59 Last Admin: 04/03/19 20:59 Dose: 50 mg Documented by: Metoprolol Tartrate (Lopressor) 75 mg PO DAILY [facility] Stop: 05/01/19 08:59 Last Admin: 04/04/19 08:08 Dose: 75 mg Documented by: Miscellaneous (Carbohydrates For Hypoglycemia) 15 - 30 gm PO UD PRN PRN Reason: Hypoglycemia Protocol Stop: 04/27/19 12:18 Nystatin (Mycostatin) 1 appln EXT PRN PRN PRN Reason: Affected Skin Folds Stop: 04/29/19 07:09 Ondansetron HCl (Zofran Odt) 2 mg PO Q4H PRN PRN Reason: Nausea Stop: 05/02/19 21:26 Last Admin: 04/03/19 06:07 Dose: 2 mg Documented by: Fluticasone/Salmeterol (Advair Diskus 250/50) 1 puffs INH BID [facility] Stop: 04/27/19 20:59 Last Admin: 04/04/19 08:08 Dose: 1 puffs Documented by: Simvastatin (Zocor) 20 mg PO HS [facility] Stop: 04/27/19 20:59 Last Admin: 04/03/19 21:00 Dose: 20 mg Documented by: Spironolactone (Aldactone) 12.5 mg PO DAILY [facility] Stop: 05/05/19 08:59 Tiotropium [place] (Spiriva) 1 puffs INH QAM [facility] Stop: 05/04/19 08:59 Last Admin: 04/04/19 08:43 Dose: 1 puffs Documented by: Warfarin Sodium (Coumadin) 2 mg PO DAILY@1600 [facility] Stop: 04/30/19 21:59 Last Admin: 04/04/19 16:47 Dose: 2 mg Documented by: (1) COPD (chronic obstructive pulmonary disease) COPD type: COPD with acute exacerbation Qualified Code(s): J44.1 - Chronic obstructive pulmonary disease with (acute) exacerbation
[2019-04-04] MEDS: INSULIN GLARGINE SOLOSTAR 100 UNITS/ML 3 ML PEN SQ SCH (20:31)
[2019-04-04] MEDS: METOPROLOL TARTRATE 50 MG TAB PO SCH (20:32)
[2019-04-04] MEDS: lisinopriL 40 MG TAB PO SCH (20:34)
[2019-04-04] MEDS: SIMVASTATIN 20 MG TAB PO SCH (20:35)
--- NOTE | 2019-04-04 20:45 | XRay Report ---
XR chest 1V portable CLINICAL HISTORY: 78 years-old Female presenting with hypoxia, hypercarbia. Hx copd/ chf. TECHNIQUE: Portable upright AP view of the chest was obtained. COMPARISON: 03/28/2019. FINDINGS: Atherosclerosis of the aortic arch. Cardiac silhouette enlarged. Mild pulmonary vascular prominence. Prominence of the bilateral tramaine. Minimal right basilar opacities. No pleural effusion or pneumothora x. Degenerative changes of the thoracic spine. Upper abdomen normal. IMPRESSION: 1. Cardiomegaly and mild volume overload. 2. Prominence of the bilateral tramaine may related to prominent pulmonary arteries. 3. Minimal right basilar opacity likely atelectasis or scarring. Electronically signed by: Julian Jones M.D. 04/04/2019 8:44 PM
[2019-04-05] MEDS: FERROUS SULFATE 325 MG TAB PO SCH (06:20)
[2019-04-05 06:41] LABS: INR 3.3 (0.9-1.1); Prothrombin Time 30.8 Seconds (9.0-12.0)
[2019-04-05 07:01] LABS: Hematocrit (blood only) 37.7 % (37-47); Hemoglobin 10.4 g/dL (12.0-16.0); Mean Corpuscular Hemoglobin 24.2 pg (25-34); Mean Corpuscular Hgb Conc 27.6 g/dL (32-36); Mean Corpuscular Volume 87.7 fL (80-100); Platelet Count 121 K/uL (130-400); Platelet Estimate Decreased (Normal); RDW Coefficient of Variation 18.6 % (11.5-14.5); RDW Standard Deviation 58.5 fL (36.4-46.3); White Blood Count 8.06 K/uL (4.8-10.8)
[2019-04-05] MEDS: LEVALBUTEROL HCL 1.25 MG/3 ML NEB NEB SCH ×3 (07:13→22:20)
[2019-04-05 07:21] LABS: BUN Creatinine Ratio 29.5 (10-20); Creatinine Clr Calc Pharmacy 59.9 ml/min; Est GFR (African American) 63.7; Potassium 4.1 mmol/L (3.5-5.1)
[2019-04-05] MEDS: METOPROLOL TARTRATE 25 MG TAB PO SCH (08:14)
[2019-04-05] MEDS: guaiFENesin 600 MG TABCR PO SCH ×2 (08:14→20:32)
[2019-04-05] MEDS: DOXYCYCLINE HYCLATE 100 MG CAP PO SCH (08:14)
[2019-04-05] MEDS: FLUTICASONE/SALMETEROL 250/50 (ADVAIR) 14 PUFF/1 INHALER INH SCH ×2 (08:15→20:33)
[2019-04-05] MEDS: TIOTROPIUM BROMIDE 5 PUFF/90 MCG INH INH SCH (08:15)
[2019-04-05] MEDS: INSULIN ASPART 100 UNITS/ML 3 ML PEN SC SCH ×4 (08:17→20:33)
[2019-04-05] MEDS ORDERED: FUROSEMIDE 20 MG TAB PO SCH (09:00)
[2019-04-05] MEDS: SPIRONOLACTONE 25 MG TAB PO SCH (09:25)
--- NOTE | 2019-04-05 11:02 | Cardiology Progress Note ---
Date of Service April 05, 2019 Assessment & Plan (1) Chronic atrial fibrillation: rate controlled asymptommatic cont metoprolol and coumadin follow up with [facility]TM clinic (2) Tachycardia-bradycardia syndrome: stable hx of pacer implant with infection and subsequent extraction cont to follow as an outpatient (3) Diastolic CHF: does not examine as volume overloaded We will plan on resuming furosemide 20 mill grams every other day as per prior to hospitalization. Discontinue potassium supplement begin spironolactone 12.5 mill grams p.o. daily ok to d/c to home from cardiac standpoint. (4) Venous stasis ulcers of both lower extremities: (5) COPD (chronic obstructive pulmonary disease): seen by pulm patient declining therapy (6) Supratherapeutic INR: follow Subjective Pt seen and examined, oob in chair, O2 in place. States that she feels ok. Kyrie cp, palpitations, lightheadedness or dizziness. Review of Systems Review of Systems: All systems reviewed & are unremarkable except as noted in HPI & below Physical Exam Physical Exam: General: Awake, alert and oriented x 3. No acute distress. HEENT: Normocephalic, atraumatic. Pupils equal, round and reactive to light and accommodation. Extraocular muscles are intact. Anicteric sclera. Moist mucous membranes. Neck: No JVD. No bruit. Cardiovascular: irregularly irregular, unable to appreciate murmur, rub or gallop. Pulmonary: Clear to auscultation bilaterally. No rales, rhonchi, or wheezing. Abdomen: Bowel sounds x 4, soft. No rebound, guarding or tenderness. No organomegaly. Extremities: No clubbing, cyanosis or edema. +2 pedal pulses bilaterally. Skin: Warm and dry. Results & Data Vital Signs (Past 12 Hours) Vital Signs Temp Pulse Pulse Pulse Pulse Pulse Pulse 04/05/19 08:51 104 H 119 H 120 H 120 H 04/05/19 07:19 36.9 C 90 04/05/19 07:14 82 04/05/19 04:00 36.4 C L 76 04/05/19 00:57 82 04/05/19 00:21 36.6 C 102 H 04/04/19 23:16 85 Pulse Resp Resp Resp Resp Resp Resp 04/05/19 08:51 91 H 18 18 22 20 18 04/05/19 07:19 18 11/13/19 07:14 16 04/05/19 04:00 18 04/05/19 00:57 04/05/19 00:21 20 04/04/19 23:16 17 BP Pulse Ox Pulse Ox Pulse Ox Pulse Ox Pulse Ox Pulse Ox 04/05/19 08:51 86 L 91 90 90 85 L 04/05/19 07:19 145/79 H 92 04/05/19 07:14 96 04/05/19 04:00 139/84 97 04/05/19 00:57 04/05/19 00:21 123/77 98 04/04/19 23:16 99 (1) Diastolic CHF Heart failure chronicity: acute on chronic Qualified Code(s): I50.33 - Acute on chronic diastolic (congestive) heart failure (2) COPD (chronic obstructive pulmonary disease) COPD type: COPD with acute exacerbation Qualified Code(s): J44.1 - Chronic obstructive pulmonary disease with (acute) exacerbation
--- NOTE | 2019-04-05 15:11 | Pulmonology Progress Note ---
Date of Service April 05, 2019 Assessment & Plan (1) Hypercapnic respiratory failure, chronic: Impression: 78-year-old female with chronic hypercarbic respiratory failure. Suspect this likely represents obesity hypoventilation syndrome. Patient continues to decline evaluation for sleep disordered breathing and states she is unwilling to consider BiPAP or CPAP. Recommendations: 1. Chronic hypercarbic and hypoxemic respiratory failure: Secondary to undiagnosed and untreated obesity hypoventilation syndrome. Recommend outpatient sleep study. The patient states she will not comply with this. Recommended trial of nocturnal positive airway pressure. Again the patient states that she will not comply. Weight loss recommended. I offered the patient the opportunity to be seen in pulmonary clinic for follow-up with pulmonary function test however she states that she lives alone and would not be able to coordinate rides. 2. Continue oxygen titrated to keep saturations 85 to 90%. Given her hypercarbia, no need to try and titrate oxygen saturations above this. 3. I suspect the patient likely has pulmonary hypertension which is WHO class II and III. Her echocardiogram did not comment on diastolic filling parameters or pulmonary hypertension. Would not recommend right heart catheterization. Diuretics to maintain euvolemia. 4. Reported COPD: Would not recommend systemic steroids. Continue Spiriva and Advair. DuoNeb's as needed. The patient needs to be up and mobile and out of bed to chair as much as possible The patient may be reaching maximal benefit from inpatient hospitalization. Disposition per primary service. (2) Hypoxemic respiratory failure, chronic: (3) Obesity hypoventilation syndrome: Subjective Patient seen and examined. Sitting up eating lunch. No new complaints. She states her breathing is back to her baseline. Review of Systems Review of Systems: Unchanged from prior Physical Exam Neck: trachea midline, no thyromegaly Respiratory: Few coarse rhonchi at the bilateral bases. No wheezing Cardiovascular: RRR, no murmur, no edema Extremities: + edema Psychiatric: A+Ox3, euthymic affect Results & Data Vital Signs (Past 12 Hours) Vital Signs Temp Pulse Pulse Pulse Pulse Pulse Pulse 04/05/19 14:59 36.6 C 87 04/05/19 08:51 104 H 119 H 120 H 120 H 91 H 04/05/19 07:19 36.9 C 90 04/05/19 07:14 82 04/05/19 04:00 36.4 C L 76 Resp Resp Resp Resp Resp Resp BP 04/05/19 14:59 16 161/81 H 04/05/19 08:51 18 18 22 20 18 04/05/19 07:19 18 145/79 H 04/05/19 07:14 16 04/05/19 04:00 18 139/84 Pulse Ox Pulse Ox Pulse Ox Pulse Ox Pulse Ox Pulse Ox 04/05/19 14:59 96 04/05/19 08:51 86 L 91 90 90 85 L 04/05/19 07:19 92 04/05/19 07:14 96 04/05/19 04:00 97 PG Care Time/CCT Total # of Minutes Spent Total Time Spent with Patient: Total time spent is greater than 50% in coordination of care (as documented) at patient's floor/unit and/or counseling patient:
--- NOTE | 2019-04-05 16:09 | Hospitalist Progress Note ---
Date of Service April 05, 2019 Assessment & Plan (1) COPD (chronic obstructive pulmonary disease): -78 y/o F w/ hx of COPD, Chronic respiratory failure secondary to COPD who uses 2 liters/minute at night, and Type II Diabetes Mellitus with emt intermediate current use of insulin, Paroxysmal atrial fibrillation with history of 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 2018 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, Morbid Obesity, chronic lower extremity edema from chronic venous stasis who presents with shortness of breath and hypoxia after patient reports she was exerting herself more recently. Patient was started on BIPAP in the emergency room. Patient then transitioned to nasal cannula while speaking with hospitalist. -main hospitalist differential diagnosis of Acute on Chronic respiratory failure with hypoxia secondary to acute on chronic diastolic heart failure, in the setting of possible COPD exacerbation, and suspected underlying chronic hypercapnic respiratory failure secondary to untreated obesity hypoventilation syndrome or obstructive sleep apnea -evaluations by pulmonary physician who suspects obesity hypoventilation syndrome or untreated obesity hypoventilation syndrome as contributory to hypoxia -patient has declined outpatient sleep study and would refuse CPAP or BIPAP use even if this was a treatment option -Continue oxygen titrated to keep saturations 85 to 90% (Given hypercarbia, no need to try and titrate oxygen saturations above this as per rivet hole machine operator) -04/05/19 Patient completed 2 step oxygen testing and that requirements are 2 liters/min with rest and activity; during these tests it appeared that with 2 liters/min, oxygen saturation falls between 85 to 91% -Continue Spiriva and Advair -rivet hole machine operator also suspect pulmonary hypertension but hospital echocardiogram did not comment on diastolic filling parameters or pulmonary hypertension -patient is encouraged weight loss strategies with primary care doctor (04/10/2019 11:00 AM Provider Asif Ren III, MD Department [facility] ) -patient also recommended follow up for pulmonary clinic (2) Paroxysmal A-fib: Supratherapeutic INR on admission from coumadin use Tachy-Jewel Syndrome -history of 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 2018 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 -on metoprolol tartrate 50 mg daily and 75 mg QHS -continue statin -admission INR 3.8 on 03/28/19 and peaked to 5.2 on 03/29/19 -recent INR is 3.3 on 04/05/19, hold coumadin (3) Chronic venous insufficiency: possible Diastolic Congestive Heart failure -on admission Chest X ray with no pulmonary edema but there was bilateral lower extremity edema -patient also had small abrasions from chronic venous insufficiency; history of MSSA in prior history of surface wound cultures; would culture were positive for Coag negative staph and corynebacterium; patient has multiple listed drug allergies but she is a poor historian and cannot confirm drug reactions or severity; completed treatment of Doxycycline 100 mg BID from admission 03/28/19 to 04/05/19 -transitioned from IV furosemide during this hospital stay to oral furosemide 20 mg every Wednesday/Wednesday/Wednesday starting on 04/05/19; spirolactone 12.5 mg daily Hypomagnesemia -resolved (4) DM type 2 (diabetes mellitus, type 2): Diabetes type 2 with emt intermediate current use of insulin -at home, patient reports that she takes aspart 10 units at breakfast and 12 units for lunch and 10 units for dinner -at home she also reports Lantus 15 units as twice a day instead of qHS as listed in medical records in the past -HBA1c 6.2 -during hospital stay, she is Lantus as 15 units qHS for now and place on sliding scale insulin -continue lisinopril 40 mg daily DVT prophylaxis: INR is 3.3 on 04/05/19, hold coumadin Full Code Status Patient's son [phone] Subjective Patient completed 2 step oxygen testing and that requirements are 2 liters/min with rest and activity. Patient is not acutely short of breath. No chest pain. no abdominal pain. leg edema has been resolved when under previous hospitalist. Discussed with patient about multiple specialist assessments with pulmonary and cardiology and hospitalist plans to discharge the patient once home oxygen can be set up. Patient has many reasons she raises that she may not be ready to be discharge - she is concerned about interrupting her son's schedule, her house darien not being done, that she has heating sources at home that may be high in soot. However, she denies plans for electric heating or other ways to have non respiratory irritants as source of heating. Patient also resistant to sleep study or CPAP but she agrees to oxygen therapy at home for management of respiratory care Review of Systems Review of Systems: All systems reviewed & are unremarkable except as noted in HPI & below Physical Exam Constitutional: cooperative Eyes: PERRL, conjunctivae normal, anicteric sclerae EOM intact bilaterally ENMT: external ear and nose normal, oropharynx normal Neck: normal visual inspection Respiratory: normal respiratory effort Cardiovascular: Rate/Rhythm: regular rate and regular rhythm Gastrointestinal (Abdomen): normal bowel sounds, soft, nontender, no hepatosplenomegaly Musculoskeletal: Head/Neck/Chest: normocephalic and head atraumatic Skin: no edema of lower extremities, there are some skin abrasions and chronic discolorations Neurologic: PERRL, EOMI, accommodation nl, no face palsy, no dysarthria CN's II-XI intact bilaterally Psychiatric: A+Ox3, euthymic affect Results & Data Vital Signs (Past 12 Hours) Vital Signs Temp Pulse Pulse Pulse Pulse Pulse Pulse 04/05/19 15:12 98 H 04/05/19 14:59 36.6 C 87 04/05/19 08:51 104 H 119 H 120 H 120 H 91 H 04/05/19 07:19 36.9 C 90 04/05/19 07:14 82 Resp Resp Resp Resp Resp Resp BP 04/05/19 15:12 16 04/05/19 14:59 16 161/81 H 04/05/19 08:51 18 18 22 20 18 04/05/19 07:19 18 145/79 H 04/05/19 07:14 16 Pulse Ox Pulse Ox Pulse Ox Pulse Ox Pulse Ox Pulse Ox 04/05/19 15:12 97 04/05/19 14:59 96 04/05/19 08:51 86 L 91 90 90 85 L 04/05/19 07:19 92 04/05/19 07:14 96 (1) COPD (chronic obstructive pulmonary disease) COPD type: COPD with acute exacerbation Qualified Code(s): J44.1 - Chronic obstructive pulmonary disease with (acute) exacerbation
[2019-04-05] MEDS: WARFARIN SOD 2 MG TAB PO SCH (16:14)
[2019-04-05] MEDS: SIMVASTATIN 20 MG TAB PO SCH (20:32)
[2019-04-05] MEDS: lisinopriL 40 MG TAB PO SCH (20:32)
[2019-04-05] MEDS: METOPROLOL TARTRATE 50 MG TAB PO SCH (20:32)
[2019-04-05] MEDS: INSULIN GLARGINE SOLOSTAR 100 UNITS/ML 3 ML PEN SQ SCH (20:33)
[2019-04-06] MEDS: FERROUS SULFATE 325 MG TAB PO SCH (07:07)
[2019-04-06 07:33] LABS: INR 3.4 (0.9-1.1); Prothrombin Time 31.7 Seconds (9.0-12.0)
[2019-04-06] MEDS: LEVALBUTEROL HCL 1.25 MG/3 ML NEB NEB SCH ×2 (08:42→15:10)
[2019-04-06] MEDS: FLUTICASONE/SALMETEROL 250/50 (ADVAIR) 14 PUFF/1 INHALER INH SCH (08:49)
[2019-04-06] MEDS: METOPROLOL TARTRATE 25 MG TAB PO SCH (08:50)
[2019-04-06] MEDS: guaiFENesin 600 MG TABCR PO SCH (08:50)
[2019-04-06] MEDS: SPIRONOLACTONE 25 MG TAB PO SCH (08:50)
[2019-04-06] MEDS: TIOTROPIUM BROMIDE 5 PUFF/90 MCG INH INH SCH (08:51)
--- NOTE | 2019-04-06 08:57 | Pulmonology Progress Note ---
Date of Service April 06, 2019 Assessment & Plan (1) Hypercapnic respiratory failure, chronic: Impression: 78-year-old female with chronic hypercarbic respiratory failure. Suspect this likely represents obesity hypoventilation syndrome. Patient continues to decline evaluation for sleep disordered breathing and states she is unwilling to consider BiPAP or CPAP. Recommendations: 1. Chronic hypercarbic and hypoxemic respiratory failure: Secondary to undiagnosed and untreated obesity hypoventilation syndrome. Recommendations as noted previously. I offered the patient the opportunity to be seen in pulmonary clinic for follow-up with pulmonary function test however she states that she lives alone and would not be able to coordinate rides. 2. Continue oxygen titrated to keep saturations 85 to 90%. Given her hypercarbia, no need to try and titrate oxygen saturations above this. 3. I suspect the patient likely has pulmonary hypertension which is WHO class II and III. Her echocardiogram did not comment on diastolic filling parameters or pulmonary hypertension. Would not recommend right heart catheterization. Diuretics to maintain euvolemia. 4. Reported COPD: Would not recommend systemic steroids. Continue Spiriva and Advair. DuoNeb's as needed. The patient needs to be up and mobile and out of bed to chair as much as possible Will sign off at this point in time. Again were happy to see her in the outpatient clinic if needed. Feel free to call us if we can be of additional assistance from a pulmonary critical care standpoint. (2) Hypoxemic respiratory failure, chronic: (3) Obesity hypoventilation syndrome: Subjective Seen and examined. No acute events overnight. She thinks her breathing is approaching her baseline. She states she did walk for short distances with her walker. She is not coughing or expectorating significant phlegm. Review of Systems Review of Systems: Unchanged from prior Physical Exam Neck: trachea midline, no thyromegaly Respiratory: Breath sounds are diminished. Rhonchi appear improved. Cardiovascular: RRR, no murmur, no edema Extremities: + edema Psychiatric: A+Ox3, euthymic affect Results & Data Vital Signs (Past 12 Hours) Vital Signs Temp Pulse Pulse Resp BP Pulse Ox 04/06/19 08:43 78 18 95 04/06/19 04:00 36.3 C L 92 H 18 129/81 98 04/06/19 00:45 87 04/06/19 00:35 86 04/05/19 23:13 36.6 C 90 18 131/66 93 04/05/19 22:23 98 H 18 100 PG Care Time/CCT Total # of Minutes Spent Total Time Spent with Patient: Total time spent is greater than 50% in coordination of care (as documented) at patient's floor/unit and/or counseling patient:
--- NOTE | 2019-04-06 09:55 | Hospitalist Progress Note ---
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 Patient was started on BIPAP in the emergency room. Patient then transitioned to nasal cannula while speaking with hospitalist. -main hospitalist differential diagnosis of Acute on Chronic respiratory failure with hypoxia secondary to acute on chronic diastolic heart failure, in the setting of possible COPD exacerbation, and suspected underlying chronic hypercapnic respiratory failure secondary to untreated obesity hypoventilation syndrome or obstructive sleep apnea -evaluations by pulmonary physician who suspects obesity hypoventilation syndrome or untreated obesity hypoventilation syndrome as contributory to hypoxia -patient has declined outpatient sleep study and would refuse CPAP or BIPAP use even if this was a treatment option -Continue oxygen titrated to keep saturations 85 to 90% (Given hypercarbia, no need to try and titrate oxygen saturations above this as per pan washer hand) -04/05/19 Patient completed 2 step oxygen testing and that requirements are 2 liters/min with rest and activity; during these tests it appeared that with 2 liters/min, oxygen saturation falls between 85 to 91% -Continue Spiriva and Advair -pan washer hand also suspect pulmonary hypertension but hospital echocardiogram did not comment on diastolic filling parameters or pulmonary hypertension -patient is encouraged weight loss strategies with primary care doctor (04/10/2019 11:[address] 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 -on metoprolol tartrate 50 mg daily and 75 mg QHS -continue statin -admission INR 3.8 on 03/28/19 and peaked to 5.2 on 03/29/19 -recent INR is 3.3 on 04/05/19, hold coumadin -discharge 04/06/19 INR level is 3.4; The target range is 2 to 3 so patient should resume coumadin (warfarin on 04/07/19) and have INR checked by family medical doctor (3) Chronic venous insufficiency: possible Diastolic Congestive Heart failure -on admission Chest X ray with no pulmonary edema but there was bilateral lower extremity edema -patient also had small abrasions from chronic venous insufficiency; history of MSSA in prior history of surface wound cultures; would culture were positive for Coag negative staph and corynebacterium; patient has multiple listed drug allergies but she is a poor historian and cannot confirm drug reactions or severity; completed treatment of Doxycycline 100 mg BID from admission 03/28/19 to 04/05/19 -transitioned from IV furosemide during this hospital stay to oral furosemide 20 mg every Wednesday/Wednesday/Wednesday starting on 04/05/19; spirolactone 12.5 mg daily Hypomagnesemia -resolved (4) DM type 2 (diabetes mellitus, type 2): Diabetes type 2 with terminologist current use of insulin -at home, patient reports that she takes aspart 10 units at breakfast and 12 units for lunch and 10 units for dinner -at home she also reports Lantus 15 units as twice a day instead of qHS as listed in medical records in the past -HBA1c 6.2 -during hospital stay, she is Lantus as 15 units qHS for now and place on sliding scale insulin. she can resume her home dose insulin on discharge -continue lisinopril 40 mg daily DVT prophylaxis: INR is 3.3 on 04/05/19, hold coumadin Full Code Status Patient's son [phone] Discharge Diagnosis Acute on Chronic respiratory failure with hypoxia secondary to acute on chronic diastolic heart failure, in the setting of possible COPD exacerbation, and suspected underlying chronic hypercapnic respiratory failure secondary to untreated obesity hypoventilation syndrome or obstructive sleep apnea; Paroxysmal A-fib, Tachy-Jewel Syndrome, Supratherapeutic INR Chronic venous insufficiency Type 2 diabetes mellitus with terminologist current use of insulin Subjective Patient seen and examined while sitting up in the chair. We discussed the discharge plans. Patient to await portable oxygen before discharge. denies headache or chest pain or abdominal pain. no lightheadedness or dizziness Review of Systems Review of Systems: All systems reviewed & are unremarkable except as noted in HPI & below Physical Exam Constitutional: cooperative Eyes: PERRL, conjunctivae normal, anicteric sclerae EOM intact bilaterally ENMT: external ear and nose normal, oropharynx normal Neck: normal visual inspection Respiratory: normal respiratory effort Cardiovascular: Rate/Rhythm: regular rate and regular rhythm Gastrointestinal (Abdomen): normal bowel sounds, soft, nontender, no hepatosplenomegaly Musculoskeletal: Head/Neck/Chest: normocephalic and head atraumatic Neurologic: PERRL, EOMI, accommodation nl, no face palsy, no dysarthria CN's II-XI intact bilaterally Psychiatric: A+Ox3, euthymic affect Results & Data Vital Signs (Past 12 Hours) Vital Signs Temp Pulse Pulse Resp BP Pulse Ox 04/06/19 08:43 78 18 95 04/06/19 04:00 36.3 C L 92 H 18 129/81 98 04/06/19 00:45 87 04/06/19 00:35 86 04/05/19 23:13 36.6 C 90 18 131/66 93 04/05/19 22:23 98 H 18 100 (1) COPD (chronic obstructive pulmonary disease) COPD type: COPD with acute exacerbation Qualified Code(s): J44.1 - Chronic obstructive pulmonary disease with (acute) exacerbation
--- NOTE | 2019-04-06 09:59 | Discharge Summary ---
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 Patient was started on BIPAP in the emergency room. Patient than transitioned to nasal cannula while speaking with hospitalist. There is some wheezing but patient able to carry conservation with BIPAP and then off BIPAP with nasal cannula. Patient denies fevers at home. no abdominal pain. no nausea. no dizziness. no chest pain. She discusses with hospitalist about her frustration with wound care of the legs recently as they are chronically inflamed and she has some abrasions of the skin. Allergies: patient has multiple listed drug allergies but she is a poor historian and cannot confirm drug reactions or severity Family History: brother with diabetes mellitus Admission Exam Per Admitting Provider Physical Exam Constitutional: cooperative Eyes: PERRL, conjunctivae normal, anicteric sclerae EOM intact bilaterally ENMT: external ear and nose normal, oropharynx normal Neck: normal visual inspection Respiratory: Auscultation: + wheezes Cardiovascular: Rate/Rhythm: + tachycardic Gastrointestinal (Abdomen): normal bowel sounds, soft, nontender, no hepatosplenomegaly Musculoskeletal: Head/Neck/Chest: normocephalic and head atraumatic Skin: bilateral lower extremity with scaly skin and abrasions and chronic discoloration from venous stasis Neurologic: PERRL, EOMI, accommodation nl, no face palsy, no dysarthria CN's II-XI intact bilaterally Psychiatric: A+Ox3, euthymic affect Principal Diagnosis Acute on Chronic respiratory failure with hypoxia secondary to acute on chronic diastolic heart failure, in the setting of possible COPD exacerbation, and suspected underlying chronic hypercapnic respiratory failure secondary to untreated obesity hypoventilation syndrome or obstructive sleep apnea; Paroxysmal A-fib, Tachy-Jewel Syndrome, Supratherapeutic INR Chronic venous insufficiency Type 2 diabetes mellitus with senior care current use of insulin Discharge Exam Constitutional cooperative Eyes PERRL, conjunctivae normal, anicteric sclerae EOM intact bilaterally ENMT external ear and nose normal, oropharynx normal Neck normal visual inspection Respiratory normal respiratory effort Cardiovascular Rate/Rhythm: regular rate and regular rhythm Gastrointestinal (Abdomen) normal bowel sounds, soft, nontender, no hepatosplenomegaly Musculoskeletal Head/Neck/Chest: normocephalic and head atraumatic Neurologic PERRL, EOMI, accommodation nl, no face palsy, no dysarthria CN's II-XI intact bilaterally Psychiatric A+Ox3, euthymic affect Discharge Data Allergies Allergy/AdvReac Type Severity Reaction Status Date / Time Cephalosporins Allergy Unknown Unknown Verified 03/28/19 10:45 Cipro Allergy Unknown RASH Verified 06/10/16 18:14 ciprofloxacin Allergy Unknown RASH Verified 03/28/19 10:45 clindamycin Allergy Unknown RASH Verified 03/28/19 10:45 erythromycin base Allergy Unknown Unknown Verified 03/28/19 10:45 metformin Allergy Unknown EDEMA FACE Unverified 03/28/19 10:45 AND HANDS, ITCHY Penicillins Allergy Unknown Unknown Verified 03/28/19 10:45 Sulfa (Sulfonamide Allergy Unknown . 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 Patient was started on BIPAP in the emergency room. Patient then transitioned to nasal cannula while speaking with hospitalist. -main hospitalist differential diagnosis of Acute on Chronic respiratory failure with hypoxia secondary to acute on chronic diastolic heart failure, in the setting of possible COPD exacerbation, and suspected underlying chronic hypercapnic respiratory failure secondary to untreated obesity hypoventilation syndrome or obstructive sleep apnea -evaluations by pulmonary physician who suspects obesity hypoventilation syndrome or untreated obesity hypoventilation syndrome as contributory to hypoxia -patient has declined outpatient sleep study and would refuse CPAP or BIPAP use even if this was a treatment option -Continue oxygen titrated to keep saturations 85 to 90% (Given hypercarbia, no need to try and titrate oxygen saturations above this as per car driver) -04/05/19 Patient completed 2 step oxygen testing and that requirements are 2 liters/min with rest and activity; during these tests it appeared that with 2 liters/min, oxygen saturation falls between 85 to 91% -Continue Spiriva and Advair -car driver also suspect pulmonary hypertension but hospital echocardiogram did not comment on diastolic filling parameters or pulmonary hypertension -patient is encouraged weight loss strategies with primary care doctor (04/10/2019 11:[address] 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 -on metoprolol tartrate 50 mg daily and 75 mg QHS -continue statin -admission INR 3.8 on 03/28/19 and peaked to 5.2 on 03/29/19 -recent INR is 3.3 on 04/05/19, hold coumadin -discharge 04/06/19 INR level is 3.4; The target range is 2 to 3 so patient should resume coumadin (warfarin on 04/07/19) and have INR checked by family medical doctor (3) Chronic venous insufficiency: possible Diastolic Congestive Heart failure -on admission Chest X ray with no pulmonary edema but there was bilateral lower extremity edema -patient also had small abrasions from chronic venous insufficiency; history of MSSA in prior history of surface wound cultures; would culture were positive for Coag negative staph and corynebacterium; patient has multiple listed drug allergies but she is a poor historian and cannot confirm drug reactions or severity; completed treatment of Doxycycline 100 mg BID from admission 03/28/19 to 04/05/19 -transitioned from IV furosemide during this hospital stay to oral furosemide 20 mg every Wednesday/Wednesday/Wednesday starting on 04/05/19; spirolactone 12.5 mg daily Hypomagnesemia -resolved (4) DM type 2 (diabetes mellitus, type 2): Diabetes type 2 with senior care current use of insulin -at home, patient reports that she takes aspart 10 units at breakfast and 12 units for lunch and 10 units for dinner -at home she also reports Lantus 15 units as twice a day instead of qHS as listed in medical records in the past -HBA1c 6.2 -during hospital stay, she is Lantus as 15 units qHS for now and place on slidi ng scale insulin. she can resume her home dose insulin on discharge -continue lisinopril 40 mg daily DVT prophylaxis: INR is 3.3 on 04/05/19, hold coumadin Full Code Status Patient's son [phone] Discharge Diagnosis Acute on Chronic respiratory failure with hypoxia secondary to acute on chronic diastolic heart failure, in the setting of possible COPD exacerbation, and suspected underlying chronic hypercapnic respiratory failure secondary to untreated obesity hypoventilation syndrome or obstructive sleep apnea; Paroxysmal A-fib, Tachy-Jewel Syndrome, Supratherapeutic INR Chronic venous insufficiency Type 2 diabetes mellitus with er physician current use of insulin Total Time Total Time Spent Total Time Spent (In Minutes): 40 minutes Total Time Includes: Examination of the Patient, Discharge Planning, Medication Reconciliation and Communication With Other Providers Discharge Plan Discharge Items Patient Disposition: Home - Self-Care Reason For Visit: COPD EXACERBATION, WOUND CARE Discharge Diagnosis: Acute on Chronic respiratory failure with hypoxia secondary to acute on chronic diastolic heart failure, in the setting of possible COPD exacerbation, and suspected underlying chronic hypercapnic respiratory failure secondary to untreated obesity hypoventilation syndrome or obstructive sleep apnea; Paroxysmal A-fib, Tachy-Jewel Syndrome, Supratherapeutic INR Chronic venous insufficiency Type 2 diabetes mellitus with senior care current use of insulin Condition on Discharge: Good Activity: Resume your previous activity Non-emergency contact: Primary Care Provider Call non-emergency contact if: you have any medication questions Follow-up/Referrals: Jimi Sanchez DO [Primary Care Provider] - Diet: Carb Consistent or DM2 Addtl Attending Provider Instructions: -main hospitalist differential diagnosis of Acute on Chronic respiratory failure with hypoxia secondary to acute on chronic diastolic heart failure, in the setting of possible COPD exacerbation, and suspected underlying chronic hypercapnic respiratory failure secondary to untreated obesity hypoventilation syndrome or obstructive sleep apnea -evaluations by pulmonary physician who suspects obesity hypoventilation syndrome or untreated obesity hypoventilation syndrome as contributory to hypoxia -patient has declined outpatient sleep study and would refuse CPAP or BIPAP use even if this was a treatment option -Continue oxygen titrated to keep saturations 85 to 90% (Given hypercarbia, no need to try and titrate oxygen saturations above this as per car driver) -04/05/19 Patient completed 2 step oxygen testing and that requirements are 2 liters/min with rest and activity; during these tests it appeared that with 2 liters/min, oxygen saturation falls between 85 to 91% -Continue Spiriva and Advair -car driver also suspect pulmonary hypertension but hospital echocardiogram did not comment on diastolic filling parameters or pulmonary hypertension -patient is encouraged weight loss strategies with primary care doctor (04/10/2019 11:[address] Miranda [facility] ) -patient also recommended follow up for pulmonary clinic discharge 04/06/19 INR level is 3.4; The target range is 2 to 3 so patient should resume coumadin (warfarin on 04/07/19) and have INR checked by family medical doctor Patient is to be discharged with cardiac medications and home oxygen Pending Studies at Discharge: No Stand-Alone Forms: My [facility] [employer], Smoking Cessation Medications and DC Order Prescriptions: New spironolactone 25 mg Tablet 12.5 mg PO DAILY 30 Days Qty: 15 RF: 0 metoprolol tartrate 50 mg Tablet 50 mg PO QPM 30 Days Qty: 30 RF: 0 furosemide 20 mg Tablet 20 mg PO MoWeFr@0900 30 Days Qty: 12 RF: 0 metoprolol tartrate 25 mg Tablet 75 mg PO DAILY 30 Days Qty: 90 RF: 0 Continued warfarin [Coumadin] 2 mg tablet 2 mg PO QDD RF: 0 Combivent Respimat 20-100 mcg/actuation mist 1 puffs INH QID RF: 0 Novolog U-100 Insulin aspart 100 unit/mL solution 12 units SQ QDL RF: 0 simvastatin 20 mg Tablet 20 mg PO HS RF: 0 omeprazole 20 mg Capsule,Delayed Release(Dr/Ec) 20 mg PO HS RF: 0 lisinopril 40 mg Tablet 40 mg PO HS RF: 0 Lantus Solostar U-100 Insulin 100 unit/mL (3 mL) insulin pen 15 units SUBCUT HS RF: 0 ferrous sulfate [iron] 325 mg (65 mg iron) Tablet 325 mg PO QAM RF: 0 fluticasone propion-salmeterol [Wixela Inhub] 250-50 mcg/dose blister with device 1 inh inhalation BID RF: 0 Novolog U-100 Insulin aspart 100 unit/mL solution 10 unit subcut BIDM RF: 0 Discontinued hydralazine 25 mg Tablet 50 mg PO BID RF: 0 magnesium oxide 400 mg magnesium Tablet 400 mg PO BIDM RF: 0 furosemide 20 mg Tablet 20 mg PO Q2D RF: 0 doxycycline hyclate 100 mg capsule 100 mg PO BID RF: 0 Discharge Orders: Discharge Order (Routine); Ordered 04/06/19 Ordered By: Winston Fortune Admission Data Admit Date/Time: 03/28/19 12:29 Attending Provider: Winston Fortune Admit Provider: Winston Fortune Primary Care Provider: Jimi Sanchez Other Providers: Winston Fortune ; Leo Simpson ; [place] ; Cristhian Guerrero ; Calin Woodruff ; Kristin Pascal ; Reed Macias ; Vanessa Hidalgo ; Nico Arango ; Johnny Holley ; Keke White ; Obdulio Poon ; Fredy Chirinos ; Carolyn Lamb ; Marjorie,Hannah Soto ; Alida Owusu ; Eduar Cantu ; Ashish Lui ; Jesse Leavitt
[2019-04-06] MEDS: INSULIN ASPART 100 UNITS/ML 3 ML PEN SC SCH ×2 (10:14→12:24)
== END 2019-04-06 15:34 | disposition home health service (06) | DRG 291 ==
LOC: ED 08:52 → 2N 12:29 → SUATTDRO 12:29 → 2N 14:00

== ENCOUNTER 2021-06-02 13:14 | Inpatient (IN) ==
--- NOTE | 2021-06-02 13:40 | Emergency Department Note ---
Impression & Plan Cellulitis ADMIT ED Provider Note HPI: The patient is a 80-year-old female with history of morbid obesity, COPD on 2L NC at baseline, paroxysmal atrial fibrillation, history of pacemaker placement complicated by infection, pacemaker was removed and not replaced per the patient's wishes, she presents the emergency department today with generalized weakness, inability to ambulate at home, and ability to take care of herself at home. Patient presents after she spent the greater part of the evening in a recliner chair, she states she was too weak to get out of the chair. She presents with excoriated skin to the lower extremities below the knee as well as in the groin folds, patient is covered in feces on arrival. She tells me she has been too weak to get up and accomplish her activities of daily living. She had a life alert button which she pressed this morning for transport to the ED. ROS: -General: Generalized weakness, inability to accomplish activities of daily living, incontinence of stool *10 point review systems was conducted and is otherwise negative unless stated above *Outpatient medications and allergy history reviewed PE: General: Alert, NAD, morbidly obese, disheveled appearing HEENT: Normocephalic, atraumatic Eyes: Extraocular eye movement is intact, no scleral erythema Pulmonary: Clear to auscultation bilaterally, no wheezing Cardio: Regular rate and irregular rhythm GI: Abdomen is soft, nontender : No suprapubic tenderness MSK: No evidence of trauma or malformation of the extremities, no edema Skin: Erythematous and dry skin below the knee bilaterally with 2+ edema Neuro: Alert, no focal deficits Psychiatric: Cooperative butcher all round: - An order was placed for continuous cardiac monitoring - Patient was noted to be in irregular rhythm with rate of 80 EKG: Rate: 111 Rhythm: Atrial fibrillation Intervals: QTC 644, QRS 156, RI within normal limits ST changes: No ST elevation Time: 1338 Medical Decision Making: Patient presented to the emergency department disheveled appearing, she states that she has generalized weakness, she is unable to accomplish her activities of daily living, she is incontinent of stool, states that she spent greater than 12 hours in a recliner chair and was unable to move and therefore contacted EMS for transport to the ED via life alert button. She tells me she does live alone. Patient did spike a mild fever here at 38.0 Celsius, she does have some cellulitic appearing changes to the bilateral lower extremities superimposed on venous stasis ulcers, her white blood cell count is greater than 25,000, blood cultures were drawn in the ED, patient was treated with vancomycin and ceftriaxone secondary to allergy profile. Procalcitonin is also noted to be elevated. Patient's heart rate has largely been within normal limits and she has been here in the ED, her blood pressure is stable, she does not appear to be floridly septic, she is stable on her baseline nasal cannula oxygen on my reassessment. Despite this given her leukocytosis and elevated procalcitonin in addition to her generalized deconditioned state and concern for developing sepsis, I did discuss the case with the [facility] Hospitalist service and the patient will be admitted to a telemetry bed for further management. Patient was in agreement to this plan and she was admitted in stable condition. Diagnosis: 1. Cellulitis of the bilateral lower extremities, circumferential 2. Generalized deconditioning, incontinent of stool, inability to accomplish activities of daily living 3. Leukocytosis 4. Elevated procalcitonin Disposition: Admission Blair Rutledge DO Emergency Medicine Past Med/Surg History Medical History (Updated 06/03/21 @ 09:50 by Blair Rutledge DO) A-fib COPD (chronic obstructive pulmonary disease) Diastolic CHF DM type 2 (diabetes mellitus, type 2) Dyslipidemia Hypoxemic respiratory failure, chronic Nocturnal hypoxemia Obesity hypoventilation syndrome Osteoarthritis Pacemaker infection s/p removal Staphylococcus aureus bacteremia Tachycardia-bradycardia syndrome Type 2 diabetes mellitus Surgical History History of cataract surgery History of hysterectomy History of total left knee replacement S/P adenoidectomy Family History Mother Diabetes Heart disease Social History Smoking Status: Former smoker Smoking End Date: 1958; Second Hand Exposure: Yes; Hx Alcohol Use: Yes Alcohol type: beer and hard liquor Hx Substance Use: No Preferred Language: Khmer Communication Ability: Effective Visual Impairment: No Limitations Hearing Ability: Normal Development Rep Required: No Beliefs That Will Affect Care: None marital status: Single Current Living Situation: Alone Current Living Situation Comment: Lives alone, son + granddaughter live nearby current occupational status: retired How many Children do You have: 1 Feels Safe at Home: Yes Assistive Devices: Denture - Upper, Denture - Lower, Glasses, Oxygen - at Night and Walker Allergies Allergies Allergy/AdvReac Type Severity Reaction Status Date / Time Cephalosporins Allergy Unknown Unknown Verified 06/02/21 17:15 Cipro Allergy Unknown RASH Verified 06/10/16 18:14 ciprofloxacin Allergy Unknown RASH Verified 06/02/21 17:15 clindamycin Allergy Unknown RASH Verified 06/02/21 17:15 erythromycin base Allergy Unknown Unknown Verified 06/02/21 17:15 metformin Allergy Unknown EDEMA FACE Unverified 06/02/21 17:15 AND HANDS, ITCHY Penicillins Allergy Unknown Unknown Verified 06/02/21 17:15 Sulfa (Sulfonamide Allergy Unknown . Verified 06/02/21 17:15 Antibiotics) Home Meds Home Medications Medication Instructions Recorded Confirmed lisinopril 40 mg tablet 40 mg PO DAILY 05/08/18 06/02/21 omeprazole 20 mg capsule,delayed 20 mg PO HS 05/08/18 06/02/21 release simvastatin 20 mg tablet 20 mg PO HS 05/08/18 06/02/21 ferrous sulfate 325 mg (65 mg 325 mg PO QAM 07/30/18 06/02/21 iron) tablet (iron) insulin aspart U-100 100 unit/mL 10 units SQ TIDM ml 10/03/18 06/02/21 subcutaneous solution (Novolog U-100 Insulin aspart) insulin glargine 100 unit/mL (3 15 units SUBCUT HS ml 10/03/18 06/02/21 mL) subcutaneous pen (Lantus Solostar U-100 Insulin) ipratropium 20 mcg-albuterol 100 1 puffs INH QID 10/03/18 06/02/21 mcg/actuation mist for inhalation (Combivent Respimat) fluticasone 250 mcg-salmeterol 50 1 inh INHALATION BID 03/28/19 06/02/21 mcg/dose blistr powdr for inhalation (Wixela Inhub) acetaminophen 325 mg tablet 650 mg PO Q4 PRN 06/02/21 06/02/21 (Tylenol) albuterol sulfate 90 mcg/actuation 1 inh INHALATION Q4 PRN 06/02/21 06/02/21 aerosol inhaler clotrimazole 1 % topical cream 1 applic TOPICAL .BID UD 06/02/21 06/02/21 furosemide 40 mg tablet 60 mg PO DAILY 06/02/21 06/02/21 magnesium oxide 400 mg PO DAILY 06/02/21 06/02/21 metoprolol tartrate 50 mg tablet 50 mg PO BID 06/02/21 06/02/21 spironolactone 25 mg tablet 25 mg PO DAILY 06/02/21 06/02/21 warfarin 2 mg tablet 1 mg PO SUTUTHSA 06/02/21 06/02/21 warfarin 2 mg tablet 2 mg PO MOWEFR 06/02/21 06/02/21 Results & Data (ED) Vital Signs Vital Signs - 24 hr 06/02/21 13:04 06/02/21 13:44 06/02/21 13:50 Temperature 38.0 C H Temperature Source Oral Pulse Rate 94 H 111 H 116 H Pulse Rate from SpO2 Sensor Respiratory Rate 28 H 22 18 Respiratory Effort / Characteristics Labored Respiratory Depth Normal Respiratory Pattern Regular Blood Pressure 172/88 H Blood Pressure Mean 116 Pulse Oximetry 95 Oxygen Delivery Method Non-rebreather Sepsis Recent Fever Within 48 Hours No Sepsis New/Unexplained Change in Mental Status No Sepsis Action Taken by Nursing No Action Required 06/02/21 13:53 06/02/21 14:00 06/02/21 14:10 Temperature Temperature Source Pulse Rate 108 H Pulse Rate from SpO2 Sensor 109 H 118 H Respiratory Rate 6 L 25 H Respiratory Effort / Characteristics Respiratory Depth Respiratory Pattern Blood Pressure 148/127 H Blood Pressure Mean 134 Pulse Oximetry 88 L 79 L 90 Oxygen Delivery Method Sepsis Recent Fever Within 48 Hours Sepsis New/Unexplained Change in Mental Status Sepsis Action Taken by Nursing 06/02/21 14:17 06/02/21 14:20 06/02/21 14:30 Temperature Temperature Source Pulse Rate 99 H 98 H 91 H Pulse Rate from SpO2 Sensor 110 H 122 H Respiratory Rate 27 H 31 H 18 Respiratory Effort / Characteristics Respiratory Depth Respiratory Pattern Blood Pressure 172/86 H Blood Pressure Mean 114 Pulse Oximetry 71 L 75 L Oxygen Delivery Method Sepsis Recent Fever Within 48 Hours Sepsis New/Unexplained Change in Mental Status Sepsis Action Taken by Nursing 06/02/21 14:40 06/02/21 14:50 06/02/21 15:00 Temperature Temperature Source Pulse Rate 96 H 90 93 H Pulse Rate from SpO2 Sensor Respiratory Rate 31 H 22 34 H Respiratory Effort / Characteristics Respiratory Depth Respiratory Pattern Blood Pressure Blood Pressure Mean Pulse Oximetry 78 L Oxygen Delivery Method Sepsis Recent Fever Within 48 Hours Sepsis New/Unexplained Change in Mental Status Sepsis Action Taken by Nursing 06/02/21 15:10 06/02/21 15:20 06/02/21 15:30 Temperature Temperature Source Pulse Rate 95 H 100 H 97 H Pulse Rate from SpO2 Sensor 160 H Respiratory Rate 24 30 H 23 Respiratory Effort / Characteristics Respiratory Depth Respiratory Pattern Blood Pressure Blood Pressure Mean Pulse Oximetry 73 L Oxygen Delivery Method Sepsis Recent Fever Within 48 Hours Sepsis New/Unexplained Change in Mental Status Sepsis Action Taken by Nursing 06/02/21 15:40 06/02/21 15:50 06/02/21 16:00 Temperature Temperature Source Pulse Rate 101 H 94 H 93 H Pulse Rate from SpO2 Sensor Respiratory Rate 30 H 25 H 20 Respiratory Effort / Characteristics Respiratory Depth Respiratory Pattern Blood Pressure Blood Pressure Mean Pulse Oximetry Oxygen Delivery Method Sepsis Recent Fever Within 48 Hours Sepsis New/Unexplained Change in Mental Status Sepsis Action Taken by Nursing 06/02/21 16:03 06/02/21 16:10 06/02/21 16:20 Temperature Temperature Source Pulse Rate 95 H 104 H 91 H Pulse Rate from SpO2 Sensor 101 H 106 H 91 H Respiratory Rate 16 27 H 23 Respiratory Effort / Characteristics Respiratory Depth Respiratory Pattern Blood Pressure 160/66 H Blood Pressure Mean 97 Pulse Oximetry 99 97 97 Oxygen Delivery Method Sepsis Recent Fever Within 48 Hours Sepsis New/Unexplained Change in Mental Status Sepsis Action Taken by Nursing 06/02/21 16:30 06/02/21 16:32 Temperature Temperature Source Pulse Rate 92 H 87 Pulse Rate from SpO2 Sensor 103 H 104 H Respiratory Rate 31 H 34 H Respiratory Effort / Characteristics Respiratory Depth Respiratory Pattern Blood Pressure 70/56 L Blood Pressure Mean 60 Pulse Oximetry 99 98 Oxygen Delivery Method Sepsis Recent Fever Within 48 Hours Sepsis New/Unexplained Change in Mental Status Sepsis Action Taken by Nursing Laboratory Data Result diagrams: 06/03/21 05:57 06/03/21 05:57 Lab Results 06/02/21 06/02/21 06/02/21 Range/Units 13:51 13:51 13:51 WBC 25.44 H (4.8-10.8) K/uL RBC 3.65 L (4.2-5.4) M/uL Hgb 9.1 L (12.0-16.0) g/dL Hct 33.1 L (37-47) % MCV 90.7 (80-100) fL MCH 24.9 L (25-34) pg MCHC 27.5 L (32-36) g/dL RDW Std Deviation 57.5 H (36.4-46.3) fL RDW Coeff of Silvana 17.3 H (11.5-14.5) % Plt Count 202 (130-400) K/uL MPV 11.6 H (7.4-10.4) fL Immature Gran % (Auto) 0.4 % Neut % (Auto) 93.5 % Lymph % (Auto) 1.4 % [place] % (Auto) 4.5 % Eos % (Auto) 0.1 % Baso % (Auto) 0.1 % Neut # (Auto) 23.80 H (1.4-6.5) K/uL Lymph # (Auto) 0.35 L (1.2-3.4) K/uL [place] # (Auto) 1.14 H (0.11-0.59) K/uL Eos # (Auto) 0.02 (0-0.5) K/uL Baso # (Auto) 0.03 (0-0.2) K/uL Immature Gran # (Auto) 0.10 H (0.00-0.02) K/uL PT (9.0-12.0) Seconds INR (0.9-1.1) APTT (21.0-31.0) Seconds PTT Ratio Sodium 138 (136-145) mmol/L Potassium 5.3 H (3.5-5.1) mmol/L Chloride 104 (98-107) mmol/L Carbon Dioxide 31 (21-32) mmol/L Anion Gap 3.0 (3-11) BUN 29 H (7-18) mg/dl Creatinine 1.34 H (0.6-1.2) mg/dl Est Cr Clr Drug Dosing Not Reportable Est GFR ( Amer) 43.6 ml/min Est GFR (Non-Af Amer) 37.6 ml/min BUN/Creatinine Ratio 21.9 H (10-20) Glucose 173 H (70-99) mg/dl Lactate (0.4-2.0) mmol/L Calcium 8.8 (8.5-10.1) mg/dl Magnesium 1.0 L (1.8-2.4) mg/dl Total Bilirubin 1.0 (0.2-1) mg/dl AST 18 (15-37) U/L ALT 13 (12-78) Alkaline Phosphatase 172 H D (45-117) U/L Troponin I < 0.015 (0-0.045) ng/ml Total Protein 7.7 (6.4-8.2) gm/dl Albumin 2.9 L (3.4-5.0) gm/dl Globulin 4.8 H (2.5-4.0) gm/dl Albumin/Globulin Ratio 0.6 L (0.9-2) Procalcitonin 2.41 H (0-0.5) ng/ml SARS-CoV-2 (PCR) (Negative) Influenza Type A (PCR) (Neg) Influenza Type B (PCR) (Neg) RSV (RT-PCR) (Neg) 06/02/21 06/02/21 06/02/21 Range/Units 13:51 13:51 13:57 WBC (4.8-10.8) K/uL RBC (4.2-5.4) M/uL Hgb (12.0-16.0) g/dL Hct (37-47) % MCV (80-100) fL MCH (25-34) pg MCHC (32-36) g/dL RDW Std Deviation (36.4-46.3) fL RDW Coeff of Silvana (11.5-14.5) % Plt Count (130-400) K/uL MPV (7.4-10.4) fL Immature Gran % (Auto) % Neut % (Auto) % Lymph % (Auto) % [place] % (Auto) % Eos % (Auto) % Baso % (Auto) % Neut # (Auto) (1.4-6.5) K/uL Lymph # (Auto) (1.2-3.4) K/uL [place] # (Auto) (0.11-0.59) K/uL Eos # (Auto) (0-0.5) K/uL Baso # (Auto) (0-0.2) K/uL Immature Gran # (Auto) (0.00-0.02) K/uL PT 28.1 H (9.0-12.0) Seconds INR 3.0 H (0.9-1.1) APTT 39.1 H (21.0-31.0) Seconds PTT Ratio 1.5 Sodium (136-145) mmol/L Potassium (3.5-5.1) mmol/L Chloride (98-107) mmol/L Carbon Dioxide (21-32) mmol/L Anion Gap (3-11) BUN (7-18) mg/dl Creatinine (0.6-1.2) mg/dl Est Cr Clr Drug Dosing Est GFR ( Amer) ml/min Est GFR (Non-Af Amer) ml/min BUN/Creatinine Ratio (10-20) Glucose (70-99) mg/dl Lactate 2.1 H* (0.4-2.0) mmol/L Calcium (8.5-10.1) mg/dl Magnesium (1.8-2.4) mg/dl Total Bilirubin (0.2-1) mg/dl AST (15-37) U/L ALT (12-78) Alkaline Phosphatase (45-117) U/L Troponin I (0-0.045) ng/ml Total Protein (6.4-8.2) gm/dl Albumin (3.4-5.0) gm/dl Globulin (2.5-4.0) gm/dl Albumin/Globulin Ratio (0.9-2) Procalcitonin (0-0.5) ng/ml SARS-CoV-2 (PCR) NEGATIVE (Negative) Influenza Type A (PCR) Negative (Neg) Influenza Type B (PCR) Negative (Neg) RSV (RT-PCR) Negative (Neg) 06/02/21 Range/Units 14:57 WBC (4.8-10.8) K/uL RBC (4.2-5.4) M/uL Hgb (12.0-16.0) g/dL Hct (37-47) % MCV (80-100) fL MCH (25-34) pg MCHC (32-36) g/dL RDW Std Deviation (36.4-46.3) fL RDW Coeff of Silvana (11.5-14.5) % Plt Count (130-400) K/uL MPV (7.4-10.4) fL Immature Gran % (Auto) % Neut % (Auto) % Lymph % (Auto) % [place] % (Auto) % Eos % (Auto) % Baso % (Auto) % Neut # (Auto) (1.4-6.5) K/uL Lymph # (Auto) (1.2-3.4) K/uL [place] # (Auto) (0.11-0.59) K/uL Eos # (Auto) (0-0.5) K/uL Baso # (Auto) (0-0.2) K/uL Immature Gran # (Auto) (0.00-0.02) K/uL PT (9.0-12.0) Seconds INR (0.9-1.1) APTT (21.0-31.0) Seconds PTT Ratio Sodium (136-145) mmol/L Potassium (3.5-5.1) mmol/L Chloride (98-107) mmol/L Carbon Dioxide (21-32) mmol/L Anion Gap (3-11) BUN (7-18) mg/dl Creatinine (0.6-1.2) mg/dl Est Cr Clr Drug Dosing Est GFR ( Amer) ml/min Est GFR (Non-Af Amer) ml/min BUN/Creatinine Ratio (10-20) Glucose (70-99) mg/dl Lactate 2.3 H* (0.4-2.0) mmol/L Calcium (8.5-10.1) mg/dl Magnesium (1.8-2.4) mg/dl Total Bilirubin (0.2-1) mg/dl AST (15-37) U/L ALT (12-78) Alkaline Phosphatase (45-117) U/L Troponin I (0-0.045) ng/ml Total Protein (6.4-8.2) gm/dl Albumin (3.4-5.0) gm/dl Globulin (2.5-4.0) gm/dl Albumin/Globulin Ratio (0.9-2) Procalcitonin (0-0.5) ng/ml SARS-CoV-2 (PCR) (Negative) Influenza Type A (PCR) (Neg) Influenza Type B (PCR) (Neg) RSV (RT-PCR) (Neg) Administered Medications Ferrous Sulfate (Ferrous Sulfate 325 Mg Tab) [facility] Stop: 07/03/21 08:59 Last Admin: 06/03/21 08:07 Dose: 325 mg Documented by: [id number] Fluticasone/Vilanterol (Fluticasone/Vilanterol 100/25mcg 14 Puffs/Inhaler) 1 puffs INH DAILY [facility] Stop: 07/03/21 08:59 Last Admin: 06/03/21 08:08 Dose: 1 puffs Documented by: [id number] Sodium Chloride (Nss 1000ml) 1,000 mls @ 100 mls/hr IV .Q10H [facility] Stop: 07/02/21 22:04 Last Infusion: 06/03/21 06:23 Dose: 100 mls/hr Documented by: [id number] Infusion: 06/02/21 23:44 Dose: 0 mls/hr Documented by: [id number] Admin: 06/02/21 23:44 Dose: 100 mls/hr Documented by: [id number] Piperacillin Sod/Tazobactam (Sod 4.5 gm/ Dextrose) 120 mls @ 30 mls/hr IV Q8H [facility]; Protocol Stop: 06/10/21 03:59 Last Infusion: 06/03/21 08:11 Dose: 0 mls/hr Documented by: [id number] Admin: 06/03/21 04:08 Dose: 30 mls/hr Documented by: [id number] Insulin Aspart (Insulin Aspart Per Unit) 0 units SC ACHS [facility] Stop: 07/02/21 22:29 Last Admin: 06/03/21 08:08 Dose: 3 units Documented by: [id number] Cosigned by: [id number] Admin: 06/02/21 23:53 Dose: 1 units Documented by: [id number] Cosigned by: [id number] Insulin Glargine (Insulin Glargine Solostar 100 Units/Ml 3 Ml Pen) 15 units SQ HS [facility] Stop: 07/02/21 22:29 Last Admin: 06/02/21 23:51 Dose: 15 units Documented by: [id number] Cosigned by: [id number] Magnesium Oxide (Magnesium Oxide 400 Mg Tab) 400 mg PO DAILY [facility] Stop: 07/03/21 08:59 Last Admin: 06/03/21 08:07 Dose: 400 mg Documented by: [id number] Metoprolol Tartrate (Metoprolol Tartrate 50 Mg Tab) 50 mg PO BID [facility] Stop: 07/02/21 22:04 Last Admin: 06/03/21 08:07 Dose: 50 mg Documented by: [id number] Admin: 06/02/21 23:50 Dose: 50 mg Documented by: [id number] Pantoprazole Sodium (Pantoprazole 40 Mg Tab) 40 mg PO [facility] Stop: 07/02/21 22:44 Last Admin: 06/02/21 23:50 Dose: 40 mg Documented by: [id number] Simvastatin (Simvastatin 20 Mg Tab) 20 mg PO [facility] Stop: 07/02/21 22:04 Last Admin: 06/02/21 23:50 Dose: 20 mg Documented by: [id number] Discontinued Medications Acetaminophen (Acetaminophen 500 Mg Tab) 1,000 mg PO NOW STA Stop: 06/02/21 16:09 Last Admin: 06/02/21 18:09 Dose: 1,000 mg Documented by: [id number] Sodium Chloride (Nss 1000ml) 1,000 mls @ 999 mls/hr IV .Q1H1M [facility] Stop: 06/02/21 14:45 Last Infusion: 06/02/21 22:07 Dose: 0 mls/hr Documented by: [id number] Admin: 06/02/21 14:24 Dose: 999 mls/hr Documented by: [id number] Sodium Chloride (Nss 1000ml) 1,000 mls @ 999 mls/hr IV .Q1H1M ONE Stop: 06/02/21 16:46 Last Infusion: 06/02/21 18:10 Dose: 0 mls/hr Documented by: [id number] Admin: 06/02/21 18:08 Dose: 999 mls/hr Documented by: [id number] Vancomycin HCl 2,000 mg/ (Sodium Chloride) 540 mls @ 200 mls/hr IV NOW STA Stop: 06/02/21 18:28 Last Infusion: 06/02/21 22:07 Dose: 0 mls/hr Documented by: [id number] Admin: 06/02/21 18:37 Dose: 200 mls/hr Documented by: [id number] Ceftriaxone Sodium (Rocephin) 2,000 mg in 70 mls @ 140 mls/hr IV NOW STA Stop: 06/02/21 16:25 Last Infusion: 06/02/21 18:10 Dose: 0 mls/hr Documented by: [id number] Admin: 06/02/21 18:09 Dose: 140 mls/hr Documented by: [id number] Sodium Chloride (Nss 1000ml) 1,000 mls @ 999 mls/hr IV .Q1H1M ONE Stop: 06/02/21 17:09 Last Infusion: 06/02/21 18:11 Dose: 0 mls/hr Documented by: [id number] Admin: 06/02/21 18:11 Dose: 999 mls/hr Documented by: [id number] Magnesium Sulfate/Dextrose (Magnesium Sulfate / D5w) 1 gm in 100 mls @ 100 mls/hr IV NOW STA Stop: 06/02/21 17:23 Last Infusion: 06/02/21 22:07 Dose: 0 mls/hr Documented by: [id number] Admin: 06/02/21 18:09 Dose: 100 mls/hr Documented by: [id number] Magnesium Sulfate/Dextrose (Magnesium Sulfate / D5w) 1 gm in 100 mls @ 50 mls/hr IV Q2H [facility] Stop: 06/02/21 23:44 Last Infusion: 06/03/21 06:23 Dose: 0 mls/hr Documented by: [id number] Admin: 06/03/21 04:07 Dose: 50 mls/hr Documented by: [id number] Infusion: 06/03/21 03:38 Dose: 50 mls/hr Documented by: [id number] Admin: 06/03/21 01:38 Dose: 50 mls/hr Documented by: [id number] Infusion: 06/03/21 01:38 Dose: 50 mls/hr Documented by: [id number] Admin: 06/02/21 23:38 Dose: 50 mls/hr Documented by: [id number] Piperacillin Sod/Tazobactam (Sod 4.5 gm/ Dextrose) 120 mls @ 200 mls/hr IV NOW ONE; Protocol Stop: 06/02/21 23:20 Last Infusion: 06/03/21 01:10 Dose: 0 mls/hr Documented by: [id number] Admin: 06/02/21 23:45 Dose: 200 mls/hr Documented by: [id number] Miscellaneous Information (Vancomycin Consult Active) 1 ea N/A UD PRN PRN Reason: Consult Stop: 07/02/21 14:43 Last Admin: 06/02/21 18:37 Dose: 1 ea Documented by: [id number] Imaging Data Radiologist's Impression: Chest X-Ray 06/02/21 13:37 XR chest 1V portable CLINICAL HISTORY: SEPSIS. Evaluate cardiopulmonary status COMPARISON STUDY: 04/04/2019 TECHNIQUE: 1 view of the chest FINDINGS: Single frontal view of the chest demonstrates the heart size to again be mildly enlarged. There is a decreased inspiratory effort with elevation of the hemidiaphragms and crowding of the bronchovascular markings at the lung bases and centrally. There is minimal right basilar atelectasis. The lungs are clear of alveolar opacities. There is no evidence for pleural effusion. There is no evidence for vascular congestion. There is no acute osseous pathology. IMPRESSION: Decreased inspiratory effort with minimal atelectasis at the right lung base. No confluent alveolar opacities. ACT 112: Negative or not required by law. Electronically signed by: Juancarlos Tavera M.D. 06/02/2021 2:10 PM Discharge Plan Visit Data Chief Complaint: Shortness of Breath/Dyspnea ED Provider: Blair Rutledge Discharge Problem: Cellulitis Patient Disposition: Admitted As Inpatient Discharge Instructions Interventions: ED Discharge Assessment Last Done: 06/02/21 20:41 Discharge Problem: Cellulitis Qualifiers: Site of cellulitis: extremity Site of cellulitis of extremity: lower extremity Laterality: unspecified laterality Qualified Code(s): L03.119 - Cellulitis of un specified part of limb
[2021-06-02] MEDS ORDERED: SODIUM CHLORIDE 0.9% 1000ML 1,000 ML IV SCH (13:45)
--- NOTE | 2021-06-02 14:11 | XRay Report ---
XR chest 1V portable CLINICAL HISTORY: SEPSIS. Evaluate cardiopulmonary status COMPARISON STUDY: 04/04/2019 TECHNIQUE: 1 view of the chest FINDINGS: Single frontal view of the chest demonstrates the heart size to again be mildly enlarged. There is a decreased inspiratory effort with elevation of the hemidiaphragms and crowding of the bronchovascular markings at the lung bases and centrally. There is minimal right basilar atelectasis. The lungs are clear of alveolar opacities. There is no evidence for pleural effusion. There is no evidence for vasc ular congestion. There is no acute osseous pathology. IMPRESSION: Decreased inspiratory effort with minimal atelectasis at the right lung base. No confluen t alveolar opacities. ACT 112: Negative or not required by law. Electronically signed by: Juancarlos Tavera M.D. 06/02/2021 2:10 PM
[2021-06-02 14:24] LABS: Alanine Aminotransferase 13 (12-78); Albumin Level 2.9 gm/dl (3.4-5.0); Aspartate Aminotransferase 18 U/L (15-37); BUN Creatinine Ratio 21.9 (10-20); Blood Urea Nitrogen 29 mg/dl (7-18); Calcium 8.8 mg/dl (8.5-10.1); Carbon Dioxide 31 mmol/L (21-32); Chloride 104 mmol/L (98-107); Est GFR (African American) 43.6 ml/min; Est GFR (Non-African American) 37.6 ml/min; Glucose 173 mg/dl (70-99); Partial Thromboplastin Ratio 1.5; Partial Thromboplastin Time 39.1 Seconds (21.0-31.0); Potassium 5.3 mmol/L (3.5-5.1); Prothrombin Time 28.1 Seconds (9.0-12.0); Sodium 138 mmol/L (136-145)
[2021-06-02 14:29] LABS: Albumin Globulin Ratio 0.6 (0.9-2); Alkaline Phosphatase 172 U/L (45-117); Globulin 4.8 gm/dl (2.5-4.0); Total Protein 7.7 gm/dl (6.4-8.2); Troponin I < 0.015 ng/ml (0-0.045)
[2021-06-02 14:30] LABS: Basophils # (auto) 0.03 K/uL (0-0.2); Basophils % (auto) 0.1 %; Eosinophils # (auto) 0.02 K/uL (0-0.5); Eosinophils % (auto) 0.1 %; Hematocrit (blood only) 33.1 % (37-47); Hemoglobin 9.1 g/dL (12.0-16.0); Immature Granulocytes % (auto) 0.4 %; Lymphocytes # (auto) 0.35 K/uL (1.2-3.4); Lymphocytes % (auto) 1.4 %; Mean Corpuscular Hemoglobin 24.9 pg (25-34); Mean Corpuscular Hgb Conc 27.5 g/dL (32-36); Mean Corpuscular Volume 90.7 fL (80-100); Mean Platelet Volume 11.6 fL (7.4-10.4); Monocytes # (auto) 1.14 K/uL (0.11-0.59); Monocytes % (auto) 4.5 %; Neutrophils % (auto) 93.5 %; Platelet Count 202 K/uL (130-400); RDW Coefficient of Variation 17.3 % (11.5-14.5); RDW Standard Deviation 57.5 fL (36.4-46.3); Red Blood Count 3.65 M/uL (4.2-5.4); White Blood Count 25.44 K/uL (4.8-10.8)
[2021-06-02] MEDS ORDERED: VANCOMYCIN CONSULT ACTIVE PRN ×2 (14:44→22:05)
[2021-06-02] MEDS ORDERED: VANCOMYCIN HCL 1,750 MG in SODIUM CHLORIDE 0.9% 500 ML IV SCH (14:45)
[2021-06-02 14:57] LABS: Influenza A virus by PCR Negative (Neg); Influenza B virus by PCR Negative (Neg); RSV by PCR Negative (Neg); SARS CoV2 RNA(COVID-19) InHosp NEGATIVE (Negative)
--- NOTE | 2021-06-02 15:34 | Electrocardiogram Report ---
Test Reason : Blood Pressure : / mmHG Vent. Rate : 111 BPM Atrial Rate : 113 BPM P-R Int : 184 ms QRS Dur : 156 ms QT Int : 474 ms P-R-T Axes : 000 -50 -47 degrees QTc Int : 644 ms Poor data quality, interpretation may be adversely affected Atrial fibrillation with rapid ventricular response Left axis deviation Non-specific intra-ventricular conduction block Possible Old Inferior infarct Abnormal ECG When compared with ECG of 28-MAR-2019 15:11, No significant change Confirmed by Joao Valdes ([id number]) on 06/02/2021 3:33:50 PM Referred By: ED Confirmed By:Joao Valdes
[2021-06-02] MEDS ORDERED: SODIUM CHLORIDE 0.9% 1000ML 1,000 ML IV ONE ×2 (15:46→16:09)
[2021-06-02] MEDS ORDERED: VANCOMYCIN HCL 2,000 MG in SODIUM CHLORIDE 0.9% 500 ML IV STA (15:47)
[2021-06-02] MEDS ORDERED: cefTRIAXone SODIUM 2,000 MG/70 ML BAG IV STA (15:56)
[2021-06-02] MEDS ORDERED: ACETAMINOPHEN 500 MG TAB PO STA (16:08)
[2021-06-02] MEDS ORDERED: MAGNESIUM SULFATE / D5W 1 GM/100 ML BAG IV STA (16:24)
[2021-06-02 17:22] LABS: Appearance Urine Clear (Clear); Bacteria Urine Automated Negative (Negative); Bilirubin Urine Negative (Negative); Blood Urine Trace (Negative); Color Urine Yellow; Epithelial Cell Urine Auto >30 /lpf (0-5); Glucose Urine UA Negative (Negative); Ketones Urine Negative (Negative); Leukocyte Esterase Urine Negative (Negative); Nitrite Urine Negative (Negative); Protein Urine Trace (Negative); Specific Gravity Urine 1.016 (1.000-1.030); Urobilinogen Urine Negative (Negative)
[2021-06-02 17:38] LABS: RBC Urine Automated 0-4 /hpf (0-4)
--- NOTE | 2021-06-02 18:25 | History & Physical Report ---
Date of Service June 02, 2021 Assessment & Plan (1) Sepsis: (2) Venous stasis ulcers of both lower extremities: Plan: -Admit to [facility] with telemetry -Patient presenting from home with reports of generalized weakness and nausea, unable to stand from chair at home. -In the ED, patient with low-grade temp, mild tachycardia, WBC 25K. Lactic acid 2.1 --> 2.3 -Source possibly bilateral lower extremity cellulitis given scattered open wounds noted on both legs -UA does not suggest UTI, no signs of pneumonia on CXR -Given complaints of nausea and abdominal tenderness on exam, will check CT ABD/pelvis -Blood cultures -S/p ceftriaxone and Vanco in the ED. Continue with IV Vanco and Zosyn for now -IVF, trend lactate -Wound care nurse consult (3) SON (acute kidney injury): Plan: -Creatinine 1.3, baseline ~ 1.1 -IVF, hold lisinopril and diuretics -Trend renal functions (4) Hypomagnesemia: Plan: -MG +1.0 -Replace, follow electrolytes (5) Chronic atrial fibrillation: (6) Tachycardia-bradycardia syndrome: Plan: -S/p previous pacemaker that had to be removed due to infection -Rate controlled on metoprolol -Anticoagulated on Coumadin, INR 3.0 (7) DM type 2 (diabetes mellitus, type 2): Plan: -Hgb A1c 7.0 09/2020 -Lantus and NovoLog per protocol while hospitalized (8) Diastolic CHF: Plan: -Holding diuretics in the setting of sepsis and SON (9) COPD (chronic obstructive pulmonary disease): (10) Hypoxemic respiratory failure, chronic: Plan: -Saturating well on chronic 2 L of oxygen -No signs of acute exacerbation, continue home inhalers (11) DVT prophylaxis: Plan: -On Coumadin History of Present Illness Chief Complaint: Generalized weakness Primary Care Provider: Jimi Sanchez DO 80-year-old female with PMH COPD with chronic hypoxic respiratory failure on 2 L of oxygen, DM type II, chronic diastolic CHF, tachybradycardia syndrome s/p previous pacemaker that was removed due to infection, atrial fibrillation anticoagulated on Coumadin, CKD stage III, and other problems listed below who presents to the ED for evaluation of generalized weakness. Patient reports being unable to get out of her chair at home x 2 days. She has had nausea however no vomiting. Reports some intermittent left lower quadrant abdominal pain. Bilateral lower extremities have thick, scaly skin with scattered open areas. Patient reports these are chronic. No fevers or chills. Denies chest pain, shortness of breath, palpitations. No lightheadedness, dizziness, diaphoresis, syncopal events. Denies fevers and chills. No urinary symptoms. In the ED, patient has a low-grade temp of 38.0, mildly tachycardic in the 90s. BP stable. Labs show WBC 25K, creatinine 1.3, lactate 2.1 --> 2.3, Mg+ 1.0. Patient was given Tylenol, IV ceftriaxone, IV Vanco, IVF, IV magnesium replacement. Allergies Allergy/AdvReac Type Severity Reaction Status Date / Time Cephalosporins Allergy Unknown Unknown Verified 06/02/21 17:15 Cipro Allergy Unknown RASH Verified 06/10/16 18:14 ciprofloxacin Allergy Unknown RASH Verified 06/02/21 17:15 clindamycin Allergy Unknown RASH Verified 06/02/21 17:15 erythromycin base Allergy Unknown Unknown Verified 06/02/21 17:15 metformin Allergy Unknown EDEMA FACE Unverified 06/02/21 17:15 AND HANDS, ITCHY Penicillins Allergy Unknown Unknown Verified 06/02/21 17:15 Sulfa (Sulfonamide Allergy Unknown . Verified 06/02/21 17:15 Antibiotics) Home Medications Medication Instructions Recorded Confirmed Type lisinopril 40 mg tablet 40 mg PO DAILY 05/08/18 06/02/21 History omeprazole 20 mg capsule,delayed 20 mg PO HS 05/08/18 06/02/21 History release simvastatin 20 mg tablet 20 mg PO HS 05/08/18 06/02/21 History ferrous sulfate 325 mg (65 mg 325 mg PO QAM 07/30/18 06/02/21 History iron) tablet (iron) insulin aspart U-100 100 unit/mL 10 units SQ TIDM ml 10/03/18 06/02/21 History subcutaneous solution (Novolog U-100 Insulin aspart) insulin glargine 100 unit/mL (3 15 units SUBCUT HS ml 10/03/18 06/02/21 History mL) subcutaneous pen (Lantus Solostar U-100 Insulin) ipratropium 20 mcg-albuterol 100 1 puffs INH QID 10/03/18 06/02/21 History mcg/actuation mist for inhalation (Combivent Respimat) fluticasone 250 mcg-salmeterol 50 1 inh INHALATION BID 03/28/19 06/02/21 History mcg/dose blistr powdr for inhalation (Wixela Inhub) acetaminophen 325 mg tablet 650 mg PO Q4 PRN 06/02/21 06/02/21 History (Tylenol) albuterol sulfate 90 mcg/actuation 1 inh INHALATION Q4 PRN 06/02/21 06/02/21 History aerosol inhaler clotrimazole 1 % topical cream 1 applic TOPICAL .BID UD 06/02/21 06/02/21 History furosemide 40 mg tablet 60 mg PO DAILY 06/02/21 06/02/21 History magnesium oxide 400 mg PO DAILY 06/02/21 06/02/21 History metoprolol tartrate 50 mg tablet 50 mg PO BID 06/02/21 06/02/21 History spironolactone 25 mg tablet 25 mg PO DAILY 06/02/21 06/02/21 History warfarin 2 mg tablet 1 mg PO SUTUTHSA 06/02/21 06/02/21 History warfarin 2 mg tablet 2 mg PO MOWEFR 06/02/21 06/02/21 History Past Med/Surg History Medical History (Updated 06/02/21 @ 18:32 by TRACI Riuz) A-fib COPD (chronic obstructive pulmonary disease) Diastolic CHF DM type 2 (diabetes mellitus, type 2) Dyslipidemia Hypoxemic respiratory failure, chronic Nocturnal hypoxemia Obesity hypoventilation syndrome Osteoarthritis Pacemaker infection s/p removal Staphylococcus aureus bacteremia Tachycardia-bradycardia syndrome Type 2 diabetes mellitus Surgical History History of cataract surgery History of hysterectomy History of total left knee replacement S/P adenoidectomy Family History Mother Diabetes Heart disease Social History Smoking Status: Former smoker Second Hand Exposure: Yes; Hx Alcohol Use: No Hx Substance Use: No Preferred Language: Sami Communication Ability: Effective Visual Impairment: No Limitations Hearing Ability: Normal 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 current occupational status: retired How many Children do You have: 1 Feels Safe at Home: Yes Assistive Devices: Oxygen - Continuous and Walker Review of Systems Review of Systems: ROS per HPI, all other systems reviewed and negative Physical Exam Constitutional: WD/WN, vitals as above + obese Eyes: PERRL, conjunctivae normal, anicteric sclerae ENMT: external ear and nose normal, oropharynx normal Respiratory: normal respiratory effort; no respiratory distress Auscultation: + diminished lung sounds Cardiovascular: Rate/Rhythm: + tachycardic and + irregularly irregular Vessels: normal peripheral pulses Extremities: + edema (+2 edema BLE) Gastrointestinal (Abdomen): Inspection/Auscultation: normal bowel sounds; abdomen not distended Percussion/Palpation: + abdomen tender (RUQ) and abdomen soft; no hepatosplenomegaly Musculoskeletal: no cyanosis or clubbing, extremities motor strength 5/5 Skin: no rashes, warm and dry Thick, scaly skin noted BLE with various scattered open areas, erythema noted Neurologic: PERRL, EOMI, accommodation nl, no face palsy, no dysarthria Psychiatric: A+Ox3, euthymic affect Results & Data Results & Data ([facility]) Vital Signs (Past 12 Hours) Vital Signs Temp Pulse Resp BP Pulse Ox 06/02/21 13:04 38.0 C H 94 H 28 H 172/88 H 95 Laboratory Results Short CBC 06/02/21 06/02/21 06/02/21 Range/Units 13:51 13:51 14:57 WBC 25.44 H (4.8-10.8) K/uL Hgb 9.1 L (12.0-16.0) g/dL Hct 33.1 L (37-47) % Plt Count 202 (130-400) K/uL Lactate 2.1 H* 2.3 H* (0.4-2.0) mmol/L BMP 06/02/21 13:51 Sodium 138 Potassium 5.3 H Chloride 104 Carbon Dioxide 31 BUN 29 H Creatinine 1.34 H Glucose 173 H Calcium 8.8 Cardiac Enzymes 06/02/21 Range/Units 13:51 Troponin I < 0.015 (0-0.045) ng/ml Liver Function 06/02/21 Range/Units 13:51 Total Bilirubin 1.0 (0.2-1) mg/dl AST 18 (15-37) U/L ALT 13 (12-78) Alkaline Phosphatase 172 H D (45-117) U/L Albumin 2.9 L (3.4-5.0) gm/dl Urine 06/02/21 Range/Units 17:00 Urine Color Yellow Urine Appearance Clear (Clear) Urine pH 5.0 (4.5-7.5) Ur Specific [place] 1.016 (1.000-1.030) Urine Protein Trace H (Negative) Urine Glucose (UA) Negative (Negative) Diagnostic Findings Chest X-Ray 06/02/21 13:37 XR chest 1V portable CLINICAL HISTORY: SEPSIS. Evaluate cardiopulmonary status COMPARISON STUDY: 04/04/2019 TECHNIQUE: 1 view of the chest FINDINGS: Single frontal view of the chest demonstrates the heart size to again be mildly enlarged. There is a decreased inspiratory effort with elevation of the hemidiaphragms and crowding of the bronchovascular markings at the lung bases and centrally. There is minimal right basilar atelectasis. The lungs are clear of alveolar opacities. There is no evidence for pleural effusion. There is no evidence for vascular congestion. There is no acute osseous pathology. IMPRESSION: Decreased inspiratory effort with minimal atelectasis at the right lung base. No confluent alveolar opacities. ACT 112: Negative or not required by law. Electronically signed by: Juancarlos Tavera M.D. 06/02/2021 2:10 PM Code Status & VTE Plan Code Status Patient is a full code as per my discussion with her. VTE Prophylaxis Plan VTE Prophylaxis will be ordered: No Supervising Physician Co-Signing Physician Notes 80-year-old lady with PMH of COPD/chronic hypoxic respiratory failure on 2 L oxygen, Chronic diastolic HF, tachybrady syndrome s/p previous pacer that was removed d/t infection, Afib on coumadin, DM2, and CKD III presented to our ED 06/02/21 for evaluation of generalized weakness. Patient reported being unable to get up from the chair that she was sitting at home from 2 days [employer], felt that she will fall if she gets up. NC pressed the life alert button this morning for transfer to the ED. She lives alone, and her son lives further away who works as well. She is not able to take care of herself. In the ED she was found to have BLE cellulitis and also noted to have lower abdominal fold skin cellulitis. Denies other ROS including urinary symptoms. She does reports she has on and off runny stool. Given elevated respiratory rate, pulse, WBC, lactate and BLE cellulitis; she meets criteria for severe sepsis. Continue with Zosyn and vancomycin. Procalcitonin elevated. Follow lactate to normal. Continue with IV fluid. Follow-up with blood cultures. SON over CKD: Creatinine elevated at presentation [baseline around 1.0]. Monitor and replete electrolytes as appropriate. Resume home meds when able. PT/OT. Wound CAre consult. Upon Exam: GENERAL: Alert and oriented x3. NAD, on 4L. Morbid obesity HEENT: No pallor, no icterus. Pupils equal, round and reactive to light. Oral mucosa moist. NECK: No JVD, no neck masses. HEART: S1 and S2 heard. Regular rate and rhythm. No murmur, no gallop. RESPIRATORY SYSTEM: Normal AP diameter. No accessory muscle use. No wheezing, no crackles. ABDOMEN: Soft, bowel sounds present, diffusely tender jerome lower belly, no di stention. Erythematous lower abdominal fold noted. CENTRAL NERVOUS SYSTEM: No facial droop. Speech is clear. Obeys simple commands. Moves extremities. EXTREMITIES: Scaly, erythematous, and tender BLE, non pitting edema noted. I have seen and examined the patient and have discussed the case with the provider above. I agree with the assessment and plan as stated. (1) Diastolic CHF Heart failure chronicity: acute on chronic Qualified Code(s): I50.33 - Acute on chronic diastolic (congestive) heart failure (2) COPD (chronic obstructive pulmonary disease) COPD type: COPD with acute exacerbation Qualified Code(s): J44.1 - Chronic obstructive pulmonary disease with (acute) exacerbation
--- NOTE | 2021-06-02 19:13 | CT Scan Report ---
CT abd pelvis wo con CLINICAL HISTORY: abdominal pain, nausea, sepsis COMPARISON STUDY: No previous studies for comparison. CT DOSE: 1450.15 mGy.cm TECHNIQUE: Standard CT of the Abdomen and Pelvis was performed without IV contrast. The patient did not receive oral contrast. A dose lowering technique was utilized adhering to the principles of THERESA Higginbotham. FINDINGS: Lung base: The lung bases are clear. There is elevation of the right hemidiaphragm with crowding the bronchovascular markings at the right lung base. The heart is mildly enlarged with valvular calcific ation present. Abdominal cavity: There is no evidence for abdominal mass, adenopathy or ascites. Liver: The liver is homogeneous in attenuation on these limited noncontrast images.. Spleen: The spleen is homogeneous in attenuation on these limited noncontrast images. Pancreas: The pancreas is homogeneous in attenuation on these limited noncontrast images. Gall Bladder: The gallbladder is well distended with no evidence for cholelithiasis, wall thickening or pericholecystic edema.. Adrenal glands: The adrenal glands are normal in size and attenuation on these limited noncontrast im ages. Kidneys: The kidneys are homogeneous in attenuation on these limited noncontrast images. There is no evidence for gross renal mass, calculus or hydronephrosis bilaterally. Bowel: The bowel loops are normally placed within the abdomen and pelvis without evidence for dilatat ion or obstruction. There is no evidence for mass lesion. There are no inflammatory changes present. There is no evidence for free air. There is a normal appendix in the right lower quadrant. Bladder: Fontana catheter is present within the bladder. : There is no evidence for pelvic mass or adenopathy. The patient is status post hysterectomy. Vasculature: There is no evidence for focal aneurysmal dilatation of the abdominal aorta. Atheroscler otic calcification is present. Osseous structures: There is no acute osseous pathology. Degenerative changes are seen within the spi ne. IMPRESSION: 1. No acute intra-abdominal or pelvic abnormality on these limited noncontrast images. 2. Nonacute findings are delineated above. ACT 112: Negative or not required by law. Electronically signed by: Juancarlos Tavera M.D. 06/02/2021 7:11 PM
[2021-06-02] MEDS ORDERED: GLUCOSE 10 TABS/TUBE PO PRN (22:05)
[2021-06-02] MEDS ORDERED: PIPERACILL/TAZOBAC CONSULT ACTIVE PRN (22:05)
[2021-06-02] MEDS ORDERED: CARBOHYDRATES FOR HYPOGLYCEMIA PO PRN (22:05)
[2021-06-02] MEDS ORDERED: GLUCOSE 40% GEL 15 GM TUBE PO PRN (22:05)
[2021-06-02] MEDS ORDERED: SIMVASTATIN 20 MG TAB PO SCH (22:05)
[2021-06-02] MEDS ORDERED: DEXTROSE 50% 50 ML SYRINGE IV PRN (22:05)
[2021-06-02] MEDS ORDERED: GLUCAGON FOR INJ 1 MG VIAL SQ PRN (22:05)
[2021-06-02] MEDS ORDERED: PIPERACILLIN/TAZOBACTAM 4.5 GM in DEXTROSE 5% 100 ML IV ONE (22:45)
[2021-06-02] MEDS: MAGNESIUM SULFATE / D5W 1 GM/100 ML BAG IV SCH (23:38)
[2021-06-02] MEDS: SODIUM CHLORIDE 0.9% 1000ML 1,000 ML IV SCH (23:44)
[2021-06-02] MEDS: PANTOprazole 40 MG TAB PO SCH (23:50)
[2021-06-02] MEDS: METOPROLOL TARTRATE 50 MG TAB PO SCH (23:50)
[2021-06-02] MEDS: INSULIN GLARGINE SOLOSTAR 100 UNITS/ML 3 ML PEN SQ SCH (23:51)
[2021-06-02] MEDS: INSULIN ASPART PER UNIT SC SCH (23:53)
[2021-06-03] MEDS: MAGNESIUM SULFATE / D5W 1 GM/100 ML BAG IV SCH ×2 (01:38→04:07)
[2021-06-03] MEDS: PIPERACILLIN/TAZOBACTAM 4.5 GM in DEXTROSE 5% 100 ML IV SCH ×3 (04:08→19:55)
[2021-06-03 06:40] LABS: Hematocrit (blood only) 29.9 % (37-47); Hemoglobin 8.2 g/dL (12.0-16.0); Mean Corpuscular Hemoglobin 24.9 pg (25-34); Mean Corpuscular Hgb Conc 27.4 g/dL (32-36); Mean Corpuscular Volume 90.9 fL (80-100); Mean Platelet Volume 10.5 fL (7.4-10.4); Platelet Count 158 K/uL (130-400); RDW Coefficient of Variation 17.4 % (11.5-14.5); RDW Standard Deviation 58.1 fL (36.4-46.3); Red Blood Count 3.29 M/uL (4.2-5.4); White Blood Count 20.48 K/uL (4.8-10.8)
[2021-06-03 06:41] LABS: INR 3.2 (0.9-1.1); Prothrombin Time 29.2 Seconds (9.0-12.0)
[2021-06-03 06:57] LABS: Calcium 8.5 mg/dl (8.5-10.1); Creatinine Clr Calc Pharmacy 46.1 ml/min; Est GFR (African American) 46.9 ml/min; Est GFR (Non-African American) 40.5 ml/min; Magnesium 1.8 mg/dl (1.8-2.4); Potassium 4.8 mmol/L (3.5-5.1)
[2021-06-03 07:35] LABS: Estimated Average Glucose 166 mg/dl; Hemoglobin A1C 7.4 % (4.5-5.6)
[2021-06-03] MEDS: MAGNESIUM OXIDE 400 MG TAB PO SCH (08:07)
[2021-06-03] MEDS: METOPROLOL TARTRATE 50 MG TAB PO SCH ×2 (08:07→19:53)
[2021-06-03] MEDS: FERROUS SULFATE 325 MG TAB PO SCH (08:07)
[2021-06-03] MEDS: INSULIN ASPART PER UNIT SC SCH ×4 (08:08→20:45)
[2021-06-03] MEDS: FLUTICASONE/VILANTEROL 100/25MCG 14 PUFFS/INHALER INH SCH (08:08)
[2021-06-03] MEDS ORDERED: INFLUENZA VACCINE HIGH DOSE PF 65+ 0.7 ML SYR IM ONE (09:00)
[2021-06-03] MEDS: DAPTOmycin 325 MG in SYRINGE 0 ML IV SCH (13:52)
[2021-06-03] MEDS: SODIUM CHLORIDE 0.9% 1000ML 1,000 ML IV SCH (13:52)
--- NOTE | 2021-06-03 14:27 | Hospitalist Progress Note ---
Date of Service June 03, 2021 Assessment & Plan (1) Sepsis: Plan: Secondary to extensive bilateral leg wounds with cellulitis (2) Venous stasis ulcers of both lower extremities: Plan: -Patient presenting from home with reports of generalized weakness and nausea, unable to stand from chair at home. -In the ED, patient with low-grade temp, mild tachycardia, WBC 25K. Lactic acid 2.1 --> 2.3 -Source possibly bilateral lower extremity cellulitis given scattered open wounds noted on both legs -UA does not suggest UTI, no signs of pneumonia on CXR -Given complaints of nausea and abdominal tenderness on exam, will check CT ABD/pelvis -Blood cultures pending for now -Started on intravenous ceftriaxone and Vanco in the ED. Continue with IV Vanco and Zosyn for now -Wound care nurse consult -We will get ID consult -White cell count has been improving and lactate level went down to 2.0 as of yesterday (3) SON (acute kidney injury): Plan: -Creatinine 1.3, baseline ~ 1.1 -IVF, hold lisinopril and diuretics -Creatinine slightly improved at 1.26 and she still remains dry-we will continue IV fluid for now (4) Hypomagnesemia: Plan: -MG +1.0 -Replace, follow electrolytes -Normalized (5) Chronic atrial fibrillation: (6) Tachycardia-bradycardia syndrome: Plan: -S/p previous pacemaker that had to be removed due to infection -Rate controlled on metoprolol -Anticoagulated on Coumadin, INR 3.0 (7) DM type 2 (diabetes mellitus, type 2): Plan: -Hgb A1c 7.0 09/2020 -Lantus and NovoLog per protocol while hospitalized (8) Diastolic CHF: Plan: -Holding diuretics in the setting of sepsis and SON -We will watch for volume status and limit IV fluid administration (9) COPD (chronic obstructive pulmonary disease): Plan: Has been on oxygen at home (10) Hypoxemic respiratory failure, chronic: Plan: -Saturating well on chronic 2 L of oxygen -No signs of acute exacerbation, continue home inhalers (11) DVT prophylaxis: Plan: -On Coumadin -INR is 3.2 today Admission and Anticipated Discharge Date Admission Date: June 02, 2021 Subjective 06/03/2021 The patient was seen and examined in medical telemetry unit She has been feeling much better since admission She cannot tell me why was she admitted though it was noted from the H&P that she presented to ED with extreme weakness and tiredness Denies any chest pain or palpitation, denies any abdominal pain nausea and or vomiting, no significant leg pain as well Review of Systems Review of Systems: All systems reviewed and are unremarkable except as noted below Musculoskeletal: Has bilateral leg wounds with chronic skin changes. This has been going on for a long time Physical Exam Physical Exam: Sitting on a chair without any acute distress Constitutional: well developed, well nourished, + ill appearing and + obese Eyes: PERRL, conjunctivae normal, anicteric sclerae ENMT: external ear and nose normal, oropharynx normal Neck: trachea midline, no thyromegaly Respiratory: + respiratory distress (Minimal shortness of breath at rest) Auscultation: + diminished lung sounds and + crackles (Occasional crackles at the bases) Cardiovascular: Rate/Rhythm: regular rate and regular rhythm; not tachycardic Heart Sounds: normal S1 and normal S2; no murmur Extremities: + edema (1+edema bilaterally,extensive ulcerations &wounds involving both the legs) Gastrointestinal (Abdomen): Inspection/Auscultation: + abdomen distended and normal bowel sounds Percussion/Palpation: abdomen soft; abdomen nontender Musculoskeletal: No acute arthritis in any joint Skin: Bilateral leg ulcerations, multiple wounds of different sizes and stages with chronic skin changes Neurologic: Alert, awake and oriented x3 Results & Data Results & Data ([facility]) Vital Signs (Past 12 Hours) Vital Signs Temp Pulse Pulse Resp BP Pulse Ox Pulse Ox 06/03/21 13:40 95 06/03/21 11:25 37.0 C 90 20 125/70 99 06/03/21 11:19 95 06/03/21 08:00 82 06/03/21 07:51 36.7 C 78 20 129/67 100 06/03/21 04:00 37.0 C 85 20 129/76 93 Pulse Ox Pulse Ox 06/03/21 13:40 06/03/21 11:25 06/03/21 11:19 95 95 06/03/21 08:00 06/03/21 07:51 06/03/21 04:00 Laboratory Results Short CBC 06/02/21 06/03/21 Range/Units 13:51 05:57 WBC 25.44 H 20.48 H (4.8-10.8) K/uL Hgb 9.1 L 8.2 L (12.0-16.0) g/dL Hct 33.1 L 29.9 L (37-47) % Plt Count 202 158 (130-400) K/uL BMP 06/02/21 06/03/21 13:51 05:57 Sodium 138 139 Potassium 5.3 H 4.8 Chloride 104 106 Carbon Dioxide 31 31 BUN 29 H 29 H Creatinine 1.34 H 1.26 H Glucose 173 H 166 H Calcium 8.8 8.5 Cardiac Enzymes 06/02/21 Range/Units 13:51 Troponin I < 0.015 (0-0.045) ng/ml Liver Function 06/02/21 Range/Units 13:51 Total Bilirubin 1.0 (0.2-1) mg/dl AST 18 (15-37) U/L ALT 13 (12-78) Alkaline Phosphatase 172 H D (45-117) U/L Albumin 2.9 L (3.4-5.0) gm/dl Urine 06/02/21 Range/Units 17:00 Urine Color Yellow Urine Appearance Clear (Clear) Urine pH 5.0 (4.5-7.5) Ur Specific [place] 1.016 (1.000-1.030) Urine Protein Trace H (Negative) Urine Glucose (UA) Negative (Negative) Medications Administered Current Inpatient Medications Acetaminophen (Acetaminophen 325 Mg Tab) 650 mg PO Q4H PRN PRN Reason: pain/fever Stop: 07/02/21 22:04 Dextrose (Dextrose 50% 50 Ml Syringe) 25 - 50 ml IV UD PRN; Protocol PRN Reason: Hypoglycemia Protocol Stop: 07/02/21 22:04 Ferrous Sulfate (Ferrous Sulfate 325 Mg Tab) 325 mg PO QAM ERIC Stop: 07/03/21 08:59 Last Admin: 06/03/21 08:07 Dose: 325 mg Documented by: Fluticasone/Vilanterol (Fluticasone/Vilanterol 100/25mcg 14 Puffs/Inhaler) 1 puffs INH DAILY ERIC Stop: 07/03/21 08:59 Last Admin: 06/03/21 08:08 Dose: 1 puffs Documented by: Glucagon (Glucagon For Inj 1 Mg Vial) 1 mg SQ UD PRN; Protocol PRN Reason: Hypoglycemia Protocol Stop: 07/02/21 22:04 Glucose (Glucose 10 Tabs/Tube) 4 - 8 tabs PO UD PRN; Protocol PRN Reason: Hypoglycemia Protocol Stop: 07/02/21 22:04 Glucose (Glucose 40% Gel 15 Gm Tube) 15 - 30 gm PO UD PRN; Protocol PRN Reason: Hypoglycemia Protocol Stop: 07/02/21 22:04 Sodium Chloride (Nss 1000ml) 1,000 mls @ 100 mls/hr IV .Q10H ERIC Stop: 07/02/21 22:04 Last Admin: 06/03/21 13:52 Dose: 100 mls/hr Documented by: Piperacillin Sod/Tazobactam (Sod 4.5 gm/ Dextrose) 120 mls @ 30 mls/hr IV Q8H [facility]; Protocol Stop: 06/10/21 03:59 Last Admin: 06/03/21 13:51 Dose: 30 mls/hr Documented by: Daptomycin 325 mg/ Syringe 6.5 mls @ 3.25 mls/min IV Q24H [facility]; Protocol Stop: 06/10/21 11:59 Last Admin: 06/03/21 13:52 Dose: 3.25 mls/min Documented by: Insulin Aspart (Insulin Aspart Per Unit) 0 units SC ACHS ERIC Stop: 07/02/21 22:29 Last Admin: 06/03/21 12:06 Dose: 3 units Documented by: Insulin Glargine (Insulin Glargine Solostar 100 Units/Ml 3 Ml Pen) 15 units SQ HS ERIC Stop: 07/02/21 22:29 Last Admin: 06/02/21 23:51 Dose: 15 units Documented by: Magnesium Oxide (Magnesium Oxide 400 Mg Tab) 400 mg PO DAILY ERIC Stop: 07/03/21 08:59 Last Admin: 06/03/21 08:07 Dose: 400 mg Documented by: Metoprolol Tartrate (Metoprolol Tartrate 50 Mg Tab) 50 mg PO BID ERIC Stop: 07/02/21 22:04 Last Admin: 06/03/21 08:07 Dose: 50 mg Documented by: Miscellaneous (Carbohydrates For Hypoglycemia ) 15 - 30 gm PO UD PRN PRN Reason: Hypoglycemia Protocol Stop: 07/02/21 22:04 Miscellaneous Information (Piperacill/Tazobac Consult Active) 1 ea N/A UD PRN PRN Reason: Consult Stop: 07/02/21 22:04 Miscellaneous Information (Daptomycin Consult Active) 1 ea N/A UD PRN PRN Reason: Consult Stop: 07/03/21 10:54 Pantoprazole Sodium (Pantoprazole 40 Mg Tab) 40 mg PO [facility] Stop: 07/02/21 22:44 Last Admin: 06/02/21 23:50 Dose: 40 mg Documented by: Simvastatin (Simvastatin 20 Mg Tab) 20 mg PO [facility] Stop: 07/02/21 22:04 Last Admin: 06/02/21 23:50 Dose: 20 mg Documented by: Warfarin Sodium (Warfarin Sod 2 Mg Tab) 2 mg PO MOWEFR [facility] Stop: 07/04/21 15:59 Warfarin Sodium (Warfarin Sod 1 Mg Tab) 1 mg PO SUTUTHSA [facility] Stop: 07/03/21 15:59 (1) Diastolic CHF Heart failure chronicity: acute on chronic Qualified Code(s): I50.33 - Acute on chronic diastolic (congestive) heart failure (2) COPD (chronic obstructive pulmonary disease) COPD type: COPD with acute exacerbation Qualified Code(s): J44.1 - Chronic obstructive pulmonary disease with (acute) exacerbation
[2021-06-03] MEDS: WARFARIN SOD 1 MG TAB PO SCH (16:31)
[2021-06-03] MEDS: PANTOprazole 40 MG TAB PO SCH (19:54)
[2021-06-03] MEDS: INSULIN GLARGINE SOLOSTAR 100 UNITS/ML 3 ML PEN SQ SCH (20:45)
[2021-06-04] MEDS: PIPERACILLIN/TAZOBACTAM 4.5 GM in DEXTROSE 5% 100 ML IV SCH (04:05)
[2021-06-04 06:09] LABS: Basophils # (auto) 0.02 K/uL (0-0.2); Basophils % (auto) 0.1 %; Eosinophils # (auto) 0.17 K/uL (0-0.5); Eosinophils % (auto) 1.2 %; Hematocrit (blood only) 29.8 % (37-47); Hemoglobin 8.2 g/dL (12.0-16.0); Immature Granulocytes # (auto) 0.04 K/uL (0.00-0.02); Immature Granulocytes % (auto) 0.3 %; Lymphocytes # (auto) 0.61 K/uL (1.2-3.4); Lymphocytes % (auto) 4.4 %; Mean Corpuscular Hemoglobin 25.2 pg (25-34); Mean Corpuscular Hgb Conc 27.5 g/dL (32-36); Mean Corpuscular Volume 91.4 fL (80-100); Mean Platelet Volume 11.4 fL (7.4-10.4); Monocytes # (auto) 0.67 K/uL (0.11-0.59); Monocytes % (auto) 4.8 %; Neutrophils # (auto) 12.46 K/uL (1.4-6.5); Neutrophils % (auto) 89.2 %; Platelet Count 158 K/uL (130-400); RDW Coefficient of Variation 17.6 % (11.5-14.5); RDW Standard Deviation 58.8 fL (36.4-46.3); Red Blood Count 3.26 M/uL (4.2-5.4); White Blood Count 13.97 K/uL (4.8-10.8)
[2021-06-04 06:14] LABS: INR 3.9 (0.9-1.1); Prothrombin Time 35.6 Seconds (9.0-12.0)
[2021-06-04 06:20] LABS: Albumin Globulin Ratio 0.8 (0.9-2); Albumin Level 2.7 gm/dl (3.4-5.0); BUN Creatinine Ratio 24.2 (10-20); Bilirubin,Total 0.6 mg/dl (0.2-1.0); Creatinine Clr Calc Pharmacy 46.1 ml/min; Est GFR (Non-African American) 39.7 ml/min; Globulin 3.3 gm/dl (2.5-4.0); Potassium 4.5 mmol/L (3.5-5.1)
[2021-06-04] MEDS: MAGNESIUM OXIDE 400 MG TAB PO SCH (08:51)
[2021-06-04] MEDS: METOPROLOL TARTRATE 50 MG TAB PO SCH ×2 (08:51→20:57)
[2021-06-04] MEDS: FERROUS SULFATE 325 MG TAB PO SCH (08:52)
[2021-06-04] MEDS: FLUTICASONE/VILANTEROL 100/25MCG 14 PUFFS/INHALER INH SCH (08:52)
[2021-06-04] MEDS: INSULIN ASPART PER UNIT SC SCH ×4 (08:59→20:58)
[2021-06-04] MEDS: DAPTOmycin 325 MG in SYRINGE 0 ML IV SCH (11:49)
[2021-06-04] MEDS ORDERED: WARFARIN SOD 2 MG TAB PO SCH (16:00)
--- NOTE | 2021-06-04 19:20 | Hospitalist Progress Note ---
Date of Service June 04, 2021 Assessment & Plan (1) Sepsis: Plan: Secondary to extensive bilateral leg wounds with cellulitis (2) Venous stasis ulcers of both lower extremities: Plan: -Patient presented from home with reports of generalized weakness and nausea, unable to stand from chair at home. Sepsis Lactic acidosis Venous stasis ulcers of both lower extremities Source:bilateral lower extremity cellulitis given scattered open wounds noted on both legs -UA does not suggest UTI, no signs of pneumonia on CXR Cultures negative to date Urine culture mixed probable skin dez CT abdomen showed no acute intra abdominal or pelvic abnormality. IV Zosyn, daptomycin transition to IV daptomycin Appreciate ID input Continue wound care Plan to transition to linezolid 600 mg p.o. 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 -Rate controlled on metoprolol -Anticoagulated on Coumadin, INR 3.9 Hold Coumadin for now Monitor INR (7) DM type 2 (diabetes mellitus, type 2): Plan: -Hgb A1c 7.0 09/2020 -Lantus and NovoLog per protocol while hospitalized (8) Diastolic CHF: Plan: -Holding diuretics in the setting of sepsis and SON -Monitor volume status Resume diuretics as able (9) COPD (chronic obstructive pulmonary disease): Plan: Has been on oxygen at home (10) Hypoxemic respiratory failure, chronic: Plan: -Saturating well on chronic 2 L of oxygen -No signs of acute exacerbation, continue home inhalers (11) DVT prophylaxis: Plan: -On Coumadin-held -INR supratherapeutic Admission and Anticipated Discharge Date Admission Date: June 02, 2021 Subjective Patient is seen and examined at bedside Offers no complaints today Denies any leg wound pain Leukocytosis trending down Updated patient's family at bedside Had PT evaluation earlier today Review of Systems Review of Systems: All systems reviewed & are unremarkable except as noted in Subjective Physical Exam Physical Exam: Physical Exam: Vitals signs as noted above General Appearance:Obese, chronically appearing, no apparent distress Head: normocephalic, Atraumatic Eyes: normal inspection, EOMI Neck: supple, Trachea midline Respiratory/Chest: Decreased breath sounds, CTA, No accessory muscle use Cardiovascular: S1, S2, No murmur Abdomen/GI:Soft, Non tender, Bowel sounds present Extremities/Musculoskeletal:normal inspection, B/L LE wounds, edema Neurologic/Psych:AAOX3, grossly no focal neurological deficits Skin: normal color, warm Results & Data Results & Data ([facility]) Vital Signs (Past 12 Hours) Vital Signs Temp Pulse Pulse Resp BP Pulse Ox 06/04/21 16:29 36.7 C 88 20 120/67 90 06/04/21 15:36 90 06/04/21 11:44 37.0 C 94 H 20 101/59 L 96 Laboratory Results Short CBC 06/04/21 Range/Units 05:40 WBC 13.97 H (4.8-10.8) K/uL Hgb 8.2 L (12.0-16.0) g/dL Hct 29.8 L (37-47) % Plt Count 158 (130-400) K/uL BMP 06/04/21 05:40 Sodium 138 Potassium 4.5 Chloride 104 Carbon Dioxide 30 BUN 31 H Creatinine 1.28 H Glucose 113 H Calcium 8.0 L Cardiac Enzymes 06/04/21 Range/Units 05:40 Total Creatine Kinase 48 (26-192) U/L Liver Function 06/04/21 Range/Units 05:40 Total Bilirubin 0.6 (0.2-1.0) mg/dl AST 14 (13-39) U/L ALT 6 L (7-52) U/L Alkaline Phosphatase 106 H (34-104) U/L Albumin 2.7 L (3.4-5.0) gm/dl (1) Diastolic CHF Heart failure chronicity: acute on chronic Qualified Code(s): I50.33 - Acute on chronic diastolic (congestive) heart failure (2) COPD (chronic obstructive pulmonary disease) COPD type: COPD with acute exacerbation Qualified Code(s): J44.1 - Chronic obstructive pulmonary disease with (acute) exacerbation
[2021-06-04] MEDS: AMMONIUM LACTATE 12% LOTION 225 GM BTL EXT SCH (20:56)
[2021-06-04] MEDS: PANTOprazole 40 MG TAB PO SCH (20:57)
[2021-06-04] MEDS: INSULIN GLARGINE SOLOSTAR 100 UNITS/ML 3 ML PEN SQ SCH (20:57)
[2021-06-05] MEDS ORDERED: ALBUT/IPRATROP 3MG/0.5MG NEB 3 ML VIAL NEB PRN (03:26)
[2021-06-05] MEDS ORDERED: XOPENEX/ATROVENT 1.25mg/0.5MG NEB COMBO NEB PRN (03:28)
[2021-06-05] MEDS ORDERED: LEVALBUTEROL 1.25MG/0.5ML NEB INH PRN (03:30)
[2021-06-05] MEDS ORDERED: IPRATROPIUM BROMIDE NEB SOLN 0.02% 2.5 ML VIAL INH PRN (03:30)
[2021-06-05 04:21] LABS: Hematocrit (blood only) 29.1 % (37-47); Hemoglobin 7.9 g/dL (12.0-16.0); Mean Corpuscular Hemoglobin 24.8 pg (25-34); Mean Corpuscular Hgb Conc 27.1 g/dL (32-36); Mean Corpuscular Volume 91.2 fL (80-100); Platelet Count 166 K/uL (130-400); RDW Coefficient of Variation 17.4 % (11.5-14.5); RDW Standard Deviation 58.4 fL (36.4-46.3); Red Blood Count 3.19 M/uL (4.2-5.4); White Blood Count 8.47 K/uL (4.8-10.8)
[2021-06-05 04:38] LABS: Base Excess ABG 2.3 mEq/L (-9-1.8); HCO3 ABG 29 mmol/L (19-24); Oxygen Saturation ABG 97.6 % (90-95); PCO2 ABG 54 mmHg (35-46); PO2 ABG 105 mmHg (80-95); pH ABG 7.34 (7.35-7.45)
[2021-06-05 04:39] LABS: Allen Test POS (Pos)
[2021-06-05 04:40] LABS: INR 2.6 (0.9-1.1); Prothrombin Time 24.1 Seconds (9.0-12.0)
[2021-06-05 04:42] LABS: BUN Creatinine Ratio 25.4 (10-20); Calcium 8.4 mg/dl (8.5-10.1); Creatinine Clr Calc Pharmacy 48.4 ml/min; Est GFR (African American) 48.8 ml/min; Est GFR (Non-African American) 42.1 ml/min; Magnesium 1.3 mg/dl (1.7-2.4); Potassium 4.5 mmol/L (3.5-5.1)
[2021-06-05 04:59] LABS: Basophils # (auto) 0.02 K/uL (0-0.2); Basophils % (auto) 0.2 %; Eosinophils # (auto) 0.16 K/uL (0-0.5); Eosinophils % (auto) 1.9 %; Immature Granulocytes # (auto) 0.02 K/uL (0.00-0.02); Immature Granulocytes % (auto) 0.2 %; Lymphocytes % (auto) 8.3 %; Monocytes # (auto) 0.52 K/uL (0.11-0.59); Monocytes % (auto) 6.1 %; Neutrophils # (auto) 7.05 K/uL (1.4-6.5); Neutrophils % (auto) 83.3 %; RBC Morphology Unremarkable
[2021-06-05] MEDS: MAGNESIUM SULFATE / D5W 1 GM/100 ML BAG IV SCH ×3 (06:07→10:02)
--- NOTE | 2021-06-05 06:50 | XRay Report ---
XR chest 1V portable CLINICAL HISTORY: wheeze COMPARISON STUDY: Chest CT July 30, 2018. Chest radiograph June 02, 2021. FINDINGS: Patient is rotated. No pneumothorax or pleural effusion is noted. There are mild bibasilar opacities. Cardiomegaly is present. Mild interstitial thickening is noted with Shruti B-lines. IMPRESSION: 1. Cardiomegaly. Mild interstitial thickening with Shruti B lines. This may indicate interstitial pul monary edema. 2. Mild bibasilar opacities which may reflect atelectasis or an infectious process. ACT 112: Negative or not required by law. Electronically signed by: Keagan Morrow M.D. 06/05/2021 6:49 AM
[2021-06-05] MEDS ORDERED: MAGNESIUM SULFATE / D5W 1 GM/100 ML BAG IV STA (08:33)
[2021-06-05] MEDS ORDERED: bisacodyL 5 MG TABEC PO ONE (09:00)
[2021-06-05] MEDS: INSULIN ASPART PER UNIT SC SCH ×4 (09:19→20:56)
[2021-06-05] MEDS: FLUTICASONE/VILANTEROL 100/25MCG 14 PUFFS/INHALER INH SCH (09:20)
[2021-06-05] MEDS: FERROUS SULFATE 325 MG TAB PO SCH (09:20)
[2021-06-05] MEDS: METOPROLOL TARTRATE 50 MG TAB PO SCH ×2 (09:20→20:49)
[2021-06-05] MEDS: MAGNESIUM OXIDE 400 MG TAB PO SCH (09:20)
[2021-06-05] MEDS: AMMONIUM LACTATE 12% LOTION 225 GM BTL EXT SCH ×2 (09:20→20:59)
[2021-06-05] MEDS: FUROSEMIDE 20 MG TAB PO SCH (10:15)
[2021-06-05] MEDS: LAVAGE SOLUTION 4000ML PO SCH (11:03)
[2021-06-05] MEDS: DAPTOmycin 325 MG in SYRINGE 0 ML IV SCH (11:14)
--- NOTE | 2021-06-05 13:58 | Gastrointestinal Consultation ---
Date of Consultation June 05, 2021 Assessment & Plan (1) Anemia: EGD/Colonoscopy tomorrow. Vit K 10mg given this afternoon. Will recheck INR tomorrow AM. Clear liquids po today. NPO after midnight. Further recommendations to follow endoscopy. (2) Occult blood positive stool: As above As above. Supervising Physician Co-Signing Physician Notes Attg add: I interviewed and examined pt, reviewed chart and labs. Pt admit with cellulitis, noted to have normocytic anemia without preceding h/o GI blood loss and no GI sypmtoms. No prior cscopes. Denies NSAID use. On couamdin a fib, INR 3. CT on 06/02 without r/p hematoma. Scopes tomorrow. History of Present Illness Reason for Consultation: Anemia, occult + stool Requesting Physician: Dr. Méndez Attending Physician: Tino Méndez MD History of Present Illness Ms. Pat Daniel is a 80-year-old female with a hx of COPD on 2 L oxygen, Chronic diastolic CHF, Afib on coumadin, DM2, and CKD III and bilat lower leg cellulitis. She was brought to the ED on 06/02 for weakness. Hb on arrival 9.1 and now drifted down to 7.9. BUN is 31. Occult stool is (+). Her INR is 2.6 and Coumadin has been held. She is awake, alert, oriented. Though she denies any abd pain or blood in BMs, she is significantly tender in the left mid abd on exam. She has never previously undergone EGD, Colonoscopy. She initially stated that she is not willing to undergo endoscopy, w/o a clear reason but didn't seem to think it was necessary - mentioning no blood in BMs and no abd pain as well as a wish to avoid sean COVID. However, later this morning she agreed and started the Golytely prep. Has a hx of COPD on 2L Ox at home. No respiratory distress. Osat at 97% on 3L O2 here. Allergies Allergy/AdvReac Type Severity Reaction Status Date / Time Cephalosporins Allergy Unknown Unknown Verified 06/02/21 17:15 Cipro Allergy Unknown RASH Verified 06/10/16 18:14 ciprofloxacin Allergy Unknown RASH Verified 06/02/21 17:15 clindamycin Allergy Unknown RASH Verified 06/02/21 17:15 erythromycin base Allergy Unknown Unknown Verified 06/02/21 17:15 metformin Allergy Unknown EDEMA FACE Unverified 06/02/21 17:15 AND HANDS, ITCHY Penicillins Allergy Unknown Unknown Verified 06/02/21 17:15 Sulfa (Sulfonamide Allergy Unknown . Verified 06/02/21 17:15 Antibiotics) Home Medications Medication Instructions Recorded Confirmed Type lisinopril 40 mg tablet 40 mg PO DAILY 05/08/18 06/02/21 History omeprazole 20 mg capsule,delayed 20 mg PO HS 05/08/18 06/02/21 History release simvastatin 20 mg tablet 20 mg PO HS 05/08/18 06/02/21 History ferrous sulfate 325 mg (65 mg 325 mg PO QAM 07/30/18 06/02/21 History iron) tablet (iron) insulin aspart U-100 100 unit/mL 10 units SQ TIDM ml 10/03/18 06/02/21 History subcutaneous solution (Novolog U-100 Insulin aspart) insulin glargine 100 unit/mL (3 15 units SUBCUT HS ml 10/03/18 06/02/21 History mL) subcutaneous pen (Lantus Solostar U-100 Insulin) ipratropium 20 mcg-albuterol 100 1 puffs INH QID 10/03/18 06/02/21 History mcg/actuation mist for inhalation (Combivent Respimat) fluticasone 250 mcg-salmeterol 50 1 inh INHALATION BID 03/28/19 06/02/21 History mcg/dose blistr powdr for inhalation (Wixela Inhub) acetaminophen 325 mg tablet 650 mg PO Q4 PRN 06/02/21 06/02/21 History (Tylenol) albuterol sulfate 90 mcg/actuation 1 inh INHALATION Q4 PRN 06/02/21 06/02/21 History aerosol inhaler clotrimazole 1 % topical cream 1 applic TOPICAL .BID UD 06/02/21 06/02/21 History furosemide 40 mg tablet 60 mg PO DAILY 06/02/21 06/02/21 History magnesium oxide 400 mg PO DAILY 06/02/21 06/02/21 History metoprolol tartrate 50 mg tablet 50 mg PO BID 06/02/21 06/02/21 History spironolactone 25 mg tablet 25 mg PO DAILY 06/02/21 06/02/21 History warfarin 2 mg tablet 1 mg PO SUTUTHSA 06/02/21 06/02/21 History warfarin 2 mg tablet 2 mg PO MOWEFR 06/02/21 06/02/21 History Patient History Medical History (Updated 06/05/21 @ 14:18 by TRACI Cochran) A-fib COPD (chronic obstructive pulmonary disease) Diastolic CHF DM type 2 (diabetes mellitus, type 2) Dyslipidemia Hypoxemic respiratory failure, chronic Nocturnal hypoxemia Obesity hypoventilation syndrome Osteoarthritis Pacemaker infection s/p removal Staphylococcus aureus bacteremia Tachycardia-bradycardia syndrome Type 2 diabetes mellitus Surgical History History of cataract surgery History of hysterectomy History of total left knee replacement S/P adenoidectomy Family History Mother Diabetes Heart disease Social History Smoking Status: Former smoker Smoking End Date: 1957; Second Hand Exposure: Yes; Hx Alcohol Use: Yes Alcohol type: beer and hard liquor Hx Substance Use: No Preferred Language: French Communication Ability: Effective Visual Impairment: No Limitations Hearing Ability: Normal Medicare Sales Representative Required: No Beliefs That Will Affect Care: None marital status: Single Current Living Situation: Alone Current Living Situation Comment: Lives alone, son + granddaughter live nearby current occupational status: retired How many Children do You have: 1 Feels Safe at Home: Yes Assistive Devices: Glasses, Oxygen - Continuous and Walker Review of Systems Review of Systems: ROS: Gen: + weakness, No fevers, weight loss Eyes: No eye redness, or pain, no recent vision changes Resp: No SOB, no cough Cardio: No palpitations/irregular beats, no chest pain GI: As per HPI : Denies abnormals SKIN: chronic bilat lower leg cellulitis red skin from cellulitis; no jaundice; mild pallor Physical Exam Constitutional: well developed, well nourished, + obese and cooperative Eyes: PERRL, conjunctivae normal, anicteric sclerae ENMT: external ear and nose normal, oropharynx normal Neck: trachea midline, no thyromegaly Respiratory: normal respiratory effort, lungs clear to auscultation Cardiovascular: Rate/Rhythm: regular rate and regular rhythm Heart Sounds: no murmur Extremities: + edema (2+ bilat lower leg edema) Gastrointestinal (Abdomen): normal bowel sounds, soft, nontender, no hepatosplenomegaly Skin: red skin both lower legs Neurologic: PERRL, EOMI, accommodation nl, no face palsy, no dysarthria awake; not confused Psychiatric: Orientation: alert, oriented x 3 and cooperative Lymphatic: no cervical or axillary lymphadenopathy Results & Data ([facility]) Vital Signs (Past 12 Hours) Vital Signs Temp Pulse Pulse Resp BP Pulse Ox 06/05/21 08:00 36.9 C 91 H 18 143/72 H 97 06/05/21 07:15 90 06/05/21 03:54 90 20 93 06/05/21 03:27 36.8 C 90 24 130/72 93 Laboratory Results WBC 8, Hb 7.9, Hct 29, Plts 166, Na 138, K 4.5, Cl 104, CO2 28, BUN 31, Cr 1.2. INR 2.6 (Vit K given) Diagnostic Findings CTAP noncontrast 06/02/21: 1. No acute intra-abdominal or pelvic abnormality on these limited noncontrast images. 2. Nonacute findings are delineated above. CXR 06/05/21: 1. Cardiomegaly. Mild interstitial thickening with Shruti B lines. This may indicate interstitial pulmonary edema. 2. Mild bibasilar opacities which may reflect atelectasis or an infectious process.
[2021-06-05] MEDS ORDERED: PHYTONADIONE 10 MG in SODIUM CHLORIDE 0.9% 50 ML IV ONE (14:10)
[2021-06-05] MEDS: PROMETHAZINE HCL 6.25 MG in SODIUM CHLORIDE 0.9% 50 ML IV PRN (14:52)
[2021-06-05] MEDS: MICONAZOLE NITRATE POWDER 43 GM EXT PRN (16:55)
--- NOTE | 2021-06-05 18:42 | Hospitalist Progress Note ---
Date of Service June 05, 2021 Assessment & Plan (1) Sepsis: Plan: Secondary to extensive bilateral leg wounds with cellulitis (2) Venous stasis ulcers of both lower extremities: Plan: -Patient presented from home with reports of generalized weakness and nausea, unable to stand from chair at home. Sepsis Lactic acidosis Venous stasis ulcers of both lower extremities Source:bilateral lower extremity cellulitis given scattered open wounds noted on both legs -UA does not suggest UTI, no signs of pneumonia on CXR Cultures negative to date Urine culture mixed probable skin dez CT abdomen showed no acute intra abdominal or pelvic abnormality. IV Zosyn, daptomycin transition to IV daptomycin Appreciate ID input Continue wound care Leukocytosis resolved Plan to transition to linezolid 600 mg p.o. twice daily to complete 14-day course of antibiotics as able (3) SON (acute kidney injury): Plan: -Creatinine 1.3, baseline ~ 1.1 Received IVF hold lisinopril and diuretics for now Monitor renal function Diarrhea Likely secondary to antibiotics Stool for C. difficile negative Monitor Normocytic Anemia Positive fecal occult in setting of Coumadin use Hemoglobin drop partly dilutional Plan for EGD colonoscopy tomorrow Received vitamin K Hold Coumadin Appreciate GI input N.p.o. after midnight Monitor CBC Hb 7.9 today (4) Hypomagnesemia: Plan: -Replace, follow electrolytes (5) Chronic atrial fibrillation: (6) Tachycardia-bradycardia syndrome: Plan: -S/p previous pacemaker that had to be removed due to infection -Rate controlled on metoprolol -Anticoagulated on Coumadin, INR 3.9>2.6 Hold Coumadin for now while GI bleed to rule out Monitor INR (7) DM type 2 (diabetes mellitus, type 2): Plan: -Hgb A1c 7.0 09/2020 -Lantus and NovoLog per protocol while hospitalized (8) Diastolic CHF: Plan: -Holding diuretics in the setting of sepsis and SON -Monitor volume status Resume diuretics as able (9) COPD (chronic obstructive pulmonary disease): Plan: Has been on oxygen at home (10) Hypoxemic respiratory failure, chronic: Plan: -Saturating well on chronic 2 L of oxygen -No signs of acute exacerbation, continue home inhalers (11) DVT prophylaxis: Plan: -On Coumadin-held Admission and Anticipated Discharge Date Admission Date: June 02, 2021 Subjective Patient is seen and examined at bedside Transient confusion overnight but oriented this morning States having diarrhea Denies any nausea, vomiting, abdominal pain States that leg wounds continue to improve Review of Systems Review of Systems: All systems reviewed & are unremarkable except as noted in Subjective Physical Exam Physical Exam: Physical Exam: Vitals signs as noted above General Appearance:Obese, chronically appearing, no apparent distress Head: normocephalic, Atraumatic Eyes: normal inspection, EOMI Neck: supple, Trachea midline Respiratory/Chest: Decreased breath sounds, CTA, No accessory muscle use Cardiovascular: S1, S2, No murmur Abdomen/GI:Soft, Non tender, Bowel sounds present Extremities/Musculoskeletal:normal inspection, B/L LE wounds, edema Neurologic/Psych:AAOX3, grossly no focal neurological deficits Skin: normal color, warm Results & Data Results & Data ([facility]) Vital Signs (Past 12 Hours) Vital Signs Temp Pulse Pulse Resp BP BP Pulse Ox 06/05/21 16:00 36.2 C L 80 18 148/84 H 96 06/05/21 14:16 88 06/05/21 08:00 36.9 C 91 H 18 143/72 H 97 06/05/21 07:15 90 Laboratory Results Short CBC 06/05/21 Range/Units 04:11 WBC 8.47 (4.8-10.8) K/uL Hgb 7.9 L (12.0-16.0) g/dL Hct 29.1 L (37-47) % Plt Count 166 (130-400) K/uL BMP 06/05/21 04:11 Sodium 138 Potassium 4.5 Chloride 104 Carbon Dioxide 28 BUN 31 H Creatinine 1.22 H Glucose 104 H Calcium 8.4 L (1) Diastolic CHF Heart failure chronicity: acute on chronic Qualified Code(s): I50.33 - Acute on chronic diastolic (congestive) heart failure (2) COPD (chronic obstructive pulmonary disease) COPD type: COPD with acute exacerbation Qualified Code(s): J44.1 - Chronic obstructive pulmonary disease with (acute) exacerbation
[2021-06-05] MEDS: PANTOprazole 40 MG TAB PO SCH (20:50)
[2021-06-05] MEDS: INSULIN GLARGINE SOLOSTAR 100 UNITS/ML 3 ML PEN SQ SCH (20:55)
[2021-06-06] MEDS ORDERED: Nursing to Pharmacy Communication SCH ×2 (01:00→17:00)
[2021-06-06] MEDS: ACETAMINOPHEN 325 MG TAB PO PRN ×2 (01:46→22:15)
[2021-06-06] MEDS: PROMETHAZINE HCL 6.25 MG in SODIUM CHLORIDE 0.9% 50 ML IV PRN (05:06)
[2021-06-06] MEDS: INSULIN ASPART PER UNIT SC SCH ×4 (06:06→21:42)
[2021-06-06 06:53] LABS: Hematocrit (blood only) 30.8 % (37-47); Hemoglobin 8.7 g/dL (12.0-16.0); Mean Corpuscular Hemoglobin 25.3 pg (25-34); Mean Corpuscular Hgb Conc 28.2 g/dL (32-36); Mean Corpuscular Volume 89.5 fL (80-100); Mean Platelet Volume 11.3 fL (7.4-10.4); Platelet Count 175 K/uL (130-400); RDW Coefficient of Variation 17.3 % (11.5-14.5); RDW Standard Deviation 56.6 fL (36.4-46.3); Red Blood Count 3.44 M/uL (4.2-5.4); White Blood Count 7.28 K/uL (4.8-10.8)
[2021-06-06 07:04] LABS: INR 1.4 (0.9-1.1); Prothrombin Time 13.6 Seconds (9.0-12.0)
[2021-06-06 07:07] LABS: BUN Creatinine Ratio 25.7 (10-20); Calcium 8.4 mg/dl (8.5-10.1); Creatinine Clr Calc Pharmacy 55.6 ml/min; Est GFR (African American) 58.5 ml/min; Est GFR (Non-African American) 50.5 ml/min; Magnesium 1.4 mg/dl (1.7-2.4); Potassium 4.5 mmol/L (3.5-5.1)
--- NOTE | 2021-06-06 08:32 | Anesthesiology Consultation ---
Date of Service June 06, 2021 Assessment & Plan (1) Encounter for pre-operative examination: ASA ASA4 History Surgery Operation Date: 06/06/21 15:30 Proposed Procedures p Colonscopy EGD Dr Patel - Maddison Patel MD Height/Weight Height: 5 ft 4 in Weight: 120.5 kg Allergies Allergy/AdvReac Type Severity Reaction Status Date / Time Cephalosporins Allergy Unknown Unknown Verified 06/02/21 17:15 Cipro Allergy Unknown RASH Verified 06/10/16 18:14 ciprofloxacin Allergy Unknown RASH Verified 06/02/21 17:15 clindamycin Allergy Unknown RASH Verified 06/02/21 17:15 erythromycin base Allergy Unknown Unknown Verified 06/02/21 17:15 metformin Allergy Unknown EDEMA FACE Unverified 06/02/21 17:15 AND HANDS, ITCHY Penicillins Allergy Unknown Unknown Verified 06/02/21 17:15 Sulfa (Sulfonamide Allergy Unknown . Verified 06/02/21 17:15 Antibiotics) Medications Home Medications Medication Instructions Recorded Confirmed Last Taken lisinopril 40 mg tablet 40 mg PO DAILY 05/08/18 06/02/21 03/27/19 omeprazole 20 mg capsule,delayed 20 mg PO HS 05/08/18 06/02/21 03/27/19 release simvastatin 20 mg tablet 20 mg PO HS 05/08/18 06/02/21 03/27/19 ferrous sulfate 325 mg (65 mg 325 mg PO QAM 07/30/18 06/02/21 03/28/19 iron) tablet (iron) insulin aspart U-100 100 unit/mL 10 units SQ TIDM ml 10/03/18 06/02/21 06/02/21 08:00 subcutaneous solution (Novolog U-100 Insulin aspart) insulin glargine 100 unit/mL (3 15 units SUBCUT HS ml 10/03/18 06/02/21 03/27/19 mL) subcutaneous pen (Lantus Solostar U-100 Insulin) ipratropium 20 mcg-albuterol 100 1 puffs INH QID 10/03/18 06/02/21 03/28/19 mcg/actuation mist for inhalation (Combivent Respimat) fluticasone 250 mcg-salmeterol 50 1 inh INHALATION BID 11/05/19 01/10/22 11/05/19 mcg/dose blistr powdr for inhalation (Wixela Inhub) acetaminophen 325 mg tablet 650 mg PO Q4 PRN 06/02/21 06/02/21 Unknown (Tylenol) albuterol sulfate 90 mcg/actuation 1 inh INHALATION Q4 PRN 06/02/21 06/02/21 Unknown aerosol inhaler clotrimazole 1 % topical cream 1 applic TOPICAL .BID UD 06/02/21 06/02/21 Unknown furosemide 40 mg tablet 60 mg PO DAILY 06/02/21 06/02/21 Unknown magnesium oxide 400 mg PO DAILY 06/02/21 06/02/21 Unknown metoprolol tartrate 50 mg tablet 50 mg PO BID 06/02/21 06/02/21 Unknown spironolactone 25 mg tablet 25 mg PO DAILY 06/02/21 06/02/21 Unknown warfarin 2 mg tablet 1 mg PO SUTUTHSA 06/02/21 06/02/21 06/01/21 17:00 warfarin 2 mg tablet 2 mg PO MOWEFR 06/02/21 06/02/21 Unknown Active Medications Generic Name Dose Route Start Last Admin Trade Name Freq PRN Reason Stop Dose Admin Acetaminophen 650 mg 06/02/21 22:05 06/06/21 01:46 Acetaminophen 325 Mg Tab PO 07/02/21 22:04 650 mg Q4H PRN Administration pain/fever Ferrous Sulfate 325 mg 06/03/21 09:00 06/05/21 09:20 Ferrous Sulfate 325 Mg Tab PO 07/03/21 08:59 325 mg QAM ERIC Administration Fluticasone/Vilanterol 1 puffs 06/03/21 09:00 06/05/21 09:20 Fluticasone/Vilanterol 100/25mcg 14 Puffs/Inhaler INH 07/03/21 08:59 1 puffs DAILY ERIC Administration Furosemide 60 mg 06/05/21 09:00 06/05/21 10:15 Furosemide 20 Mg Tab PO 07/05/21 08:59 60 mg DAILY ERIC Administration Daptomycin 325 mg/ Syringe 6.5 mls @ 3.25 mls/min 06/03/21 12:00 06/05/21 11:14 IV 06/10/21 11:59 3.25 mls/min Q24H ERIC Administration Protocol Promethazine HCl 6.25 mg/ 50.25 mls @ 201 mls/hr 06/05/21 13:58 06/06/21 05:41 Sodium Chloride IV 07/05/21 13:57 Infused Q6H PRN Infusion Nausea And Vomiting Insulin Aspart 0 units 06/06/21 06:00 06/06/21 06:06 Insulin Aspart Per Unit SC 07/06/21 05:59 Not Given Q6 ERIC Insulin Glargine 15 units 06/02/21 22:30 06/05/21 20:55 Insulin Glargine Solostar 100 Units/Ml 3 Ml Pen SQ 07/02/21 22:29 15 units HS ERIC Administration Lactic Acid 1 gm 06/04/21 21:00 06/05/21 20:59 Ammonium Lactate 12% Lotion 225 Gm Btl EXT 07/04/21 20:59 1 gm BID ERIC Administration Levalbuterol HCl 1.25 mg 06/05/21 03:30 06/05/21 03:53 Levalbuterol 1.25mg/0.5ml Neb INH 07/05/21 03:29 1.25 mg Q4H PRN Administration sob/wheezing Magnesium Oxide 400 mg 06/03/21 09:00 06/05/21 09:20 Magnesium Oxide 400 Mg Tab PO 07/03/21 08:59 400 mg DAILY ERIC Administration Metoprolol Tartrate 50 mg 06/02/21 22:05 06/05/21 20:49 Metoprolol Tartrate 50 Mg Tab PO 07/02/21 22:04 50 mg BID ERIC Administration Miconazole Nitrate 1 appln 06/04/21 08:49 06/05/21 16:55 Miconazole Nitrate Powder 43 Gm EXT 07/04/21 08:48 1 appln PRN PRN Administration Affected Skin Folds Pantoprazole Sodium 40 mg 06/02/21 22:45 06/05/21 20:50 Pantoprazole 40 Mg Tab PO 07/02/21 22:44 40 mg HS ERIC Administration Polyethylene Glycol/Electrolytes 8 dose 06/05/21 09:00 06/05/21 11:03 Lavage Solution 4000ml PO 06/06/21 09:00 8 dose TODAY@0900 ERIC Administration Simvastatin 20 mg 06/02/21 22:05 06/02/21 23:50 Simvastatin 20 Mg Tab PO 07/02/21 22:04 20 mg HS ERIC Administration Warfarin Sodium 1 mg 06/03/21 16:00 06/03/21 16:31 Warfarin Sod 1 Mg Tab PO 07/03/21 15:59 1 mg SUTUTHSA ERIC Administration Past Medical History Medical History (Updated 06/06/21 @ 08:33 by Phyllis Nuno MD) A-fib SON (acute kidney injury) Cellulitis COPD (chronic obstructive pulmonary disease) Diastolic CHF DM type 2 (diabetes mellitus, type 2) Dyslipidemia Hypoxemic respiratory failure, chronic Nocturnal hypoxemia Obesity hypoventilation syndrome Osteoarthritis Pacemaker infection s/p removal Sepsis Staphylococcus aureus bacteremia Tachycardia-bradycardia syndrome Type 2 diabetes mellitus Past Family History Family History Mother Diabetes Heart disease Past Surgical History Surgical History History of cataract surgery History of hysterectomy History of total left knee replacement S/P adenoidectomy Social History Smoking Status: Former smoker tobacco type: cigarettes Smoking End Date: 1957 Hx Alcohol Use: Yes Alcohol type: beer and hard liquor alcohol intake frequency: holidays/special occasions only Hx Substance Use: No substance use type: does not use Physical Exam Vital Signs Last Vital Signs Temp 36.4 C L 06/06/21 07:19 Pulse 90 06/06/21 07:19 Resp 18 06/06/21 07:19 BP 154/84 H 06/06/21 07:19 Pulse Ox 98 06/06/21 07:19 Testing Laboratory Results 06/06/21 06:21 06/06/21 06:21 PT 13.6 Seconds (9.0-12.0) H 06/06/21 06:21 INR 1.4 (0.9-1.1) H 06/06/21 06:21 APTT 39.1 Seconds (21.0-31.0) H 06/02/21 13:51 Hemoglobin A1c 7.4 % (4.5-5.6) H 06/03/21 05:57 Urine Color Yellow 06/02/21 17:00 Urine Appearance Clear (Clear) 06/02/21 17:00 Urine pH 5.0 (4.5-7.5) 06/02/21 17:00 Ur Specific [place] 1.016 (1.000-1.030) 06/02/21 17:00 Urine Protein Trace (Negative) H 06/02/21 17:00 Urine Glucose (UA) Negative (Negative) 06/02/21 17:00 Urine Ketones Negative (Negative) 06/02/21 17:00 Urine Nitrite Negative (Negative) 06/02/21 17:00 Ur Leukocyte Esterase Negative (Negative) 06/02/21 17:00 Urine WBC (Auto) 1-5 /hpf (0-5) 06/02/21 17:00 Urine RBC (Auto) 0-4 /hpf (0-4) 06/02/21 17:00 U Hyaline Cast (Auto) 1-5 /lpf (0-5) 06/02/21 17:00 U Epithel Cells (Auto) >30 /lpf (0-5) H 06/02/21 17:00 Urine Bacteria (Auto) Negative (Negative) 06/02/21 17:00 06/02/21 15:47 Aerobic Blood Culture - Preliminary Blood No growth in Aerobic bottle after 48 hours. Anaerobic Blood Culture - Final 06/02/21 13:51 Aerobic Blood Culture - Preliminary Blood No growth in Aerobic bottle after 48 hours. Anaerobic Blood Culture - Preliminary No growth in Anaerobic bottle after 48 hours. 06/02/21 17:00 Urine Culture - Final Urine,Straight Cath More than three types of organisms present, all low counts mixed probable skin dez. No further identifications or sensitivities to follow. 06/06/21 06/05/21 05:57 20:36 POC Glucose 94 165 H Electrocardiogram Date: 06/02/21 Atrial fibrillation with rapid ventricular response Left axis deviation Non-specific intra-ventricular conduction block Possible Old Inferior infarct Abnormal ECG When compared with ECG of 28-MAR-2019 15:11, No significant change Confirmed by Joao Valdes ([id number]) on 06/02/2021 3:33:50 PM Chest X-Ray Date: 06/05/21 1. Cardiomegaly. Mild interstitial thickening with Shruti B lines. This may indicate interstitial pulmonary edema. 2. Mild bibasilar opacities which may reflect atelectasis or an infectious process.
[2021-06-06] MEDS: LACTOBACILLUS ACIDOPHILUS 1 GM PACK PO SCH ×3 (09:08→18:02)
[2021-06-06] MEDS: METOPROLOL TARTRATE 50 MG TAB PO SCH ×2 (09:10→20:45)
[2021-06-06] MEDS: LAVAGE SOLUTION 4000ML PO SCH (09:10)
[2021-06-06] MEDS: MAGNESIUM OXIDE 400 MG TAB PO SCH (09:10)
[2021-06-06] MEDS: FLUTICASONE/VILANTEROL 100/25MCG 14 PUFFS/INHALER INH SCH (09:10)
[2021-06-06] MEDS: AMMONIUM LACTATE 12% LOTION 225 GM BTL EXT SCH ×2 (09:11→20:48)
[2021-06-06] MEDS: MAGNESIUM SULFATE / D5W 1 GM/100 ML BAG IV SCH ×2 (11:04→19:12)
--- NOTE | 2021-06-06 11:08 | Gastroenterology Progress Note ---
Date of Service June 06, 2021 Assessment & Plan (1) Anemia: Plan: EGD/Colonoscopy today. For now, cont to hold warfarin. Cont daily Pantoprazole 40mg po. Further recommendations to follow. Keep NPO x meds with a sip of water. Further recommendations to follow endoscopy. (2) Occult blood positive stool: Plan: w/o gross GI bleeding. Plan as above Plan: As above. Admission and Anticipated Discharge Date Admission Date: June 02, 2021 Supervising Physician Co-Signing Physician Notes Attg add: I interviewed and agreed with pt. Plan scopes today. Subjective 80, female, hx of COPD on 2 L oxygen at home (currently sat at 98% on 3L O2 by SD), CHF, A-fib on coumadin (held since 07/03, INR today is 1.4), DM2, and CKD III and chronic bilat lower leg cellulitis. Admitted 06/02 for weakness. Anemia Hb 9.1 on arrival ->7.9. No gross GI bleeding but occult (+). Today: AAO, agrees to endoscopy. Took most of prep; nursing states multiple liquid BMs with some brown color, no blood. No N/V. Has some LLQ abd discomfort. Normotensive at 127/74, HR 74. Review of Systems Review of Systems: ROS: Gen: + weakness prior to admission - much improved but has mostly been in bed; no fevers or weight loss Eyes: No eye redness, or pain, no recent vision changes Resp: No SOB, no cough Cardio: No palpitations/irregular beats, no chest pain GI: No abdominal pain, no nausea/vomiting : Denies pain on urination Skin: No jaundice, itching or new rashes Physical Exam Constitutional: well developed, well nourished, + obese and cooperative Eyes: PERRL, conjunctivae normal, anicteric sclerae ENMT: external ear and nose normal, oropharynx normal Neck: trachea midline, no thyromegaly Respiratory: normal respiratory effort, lungs clear to auscultation Cardiovascular: Rate/Rhythm: regular rate and regular rhythm Heart Sounds: no murmur Extremities: + edema (2+ bilat lower leg edema) Gastrointestinal (Abdomen): normal bowel sounds, soft, nontender, no hepatosplenomegaly Skin: Edema and dull, red, scaling dry skin on both lower legs, consistent with chronic cellulitis. Neurologic: PERRL, EOMI, accommodation nl, no face palsy, no dysarthria awake; not confused Psychiatric: Orientation: alert, oriented x 3 and cooperative Lymphatic: no cervical or axillary lymphadenopathy Results & Data ([facility]) Vital Signs (Past 12 Hours) Vital Signs Temp Pulse Pulse Resp BP BP Pulse Ox 06/06/21 07:19 36.4 C L 90 18 154/84 H 98 06/06/21 02:36 36.7 C 84 18 112/72 100 06/06/21 00:03 76 06/05/21 23:45 36.4 C L 79 20 117/77 99 Laboratory Results WBC 7.2, Hb 8.7, Hct 30.8, Plys 175, INR 1.4, Na 138, K 4.5, Cl 103, CO2 29, BUN 27, Cr 1.05, glucose 94 Diagnostic Findings non con CTAP 06/11/20: 1. No acute intra-abdominal or pelvic abnormality on these limited noncontrast images. 2. Nonacute findings are delineated above. CXR 06/05/21: 1. Cardiomegaly. Mild interstitial thickening with Shruti B lines. This may indicate interstitial pulmonary edema. 2. Mild bibasilar opacities which may reflect atelectasis or an infectious process.
[2021-06-06] MEDS: DAPTOmycin 325 MG in SYRINGE 0 ML IV SCH (11:19)
--- NOTE | 2021-06-06 11:54 | History & Physical Bridge Note ---
Date of Service June 06, 2021 History & Physical Bridge Note I have examined the patient, reviewed the History & Physical and in the interval since the performance of the History & Physical I have noted the following changes of clinical significance: no changes noted
[2021-06-06] MEDS ORDERED: KETAMINE 50 MG/5 ML SYRINGE ONE (12:16)
[2021-06-06] MEDS ORDERED: LIDOCAINE 2% 2 ML VIAL/AMP(20MG/ML) INFIL ONE (13:49)
[2021-06-06] MEDS ORDERED: PROPOFOL IV EMULSION 10 MG/ML 20 ML VIAL IV ONE (13:49)
[2021-06-06] MEDS ORDERED: GLUCAGON FOR INJ 1 MG VIAL ONE (13:49)
--- NOTE | 2021-06-06 14:18 | GI REPORT ---
Patient Name: Pat Daniel Procedure Date: 06/06/2021 11:55 AM Date of : 1940 Admit Type: Inpatient Age: 80 Gender: Female Attending MD: Maddison Patel MD Procedure: Colonoscopy Providers: Maddison Patel MD Referring MD: Tino Méndez Md Indications: Acute post hemorrhagic anemia Medicines: See the Anesthesia note for documentation of the administered medications Complications: No immediate complications. Estimated Blood Loss: Estimated blood loss: none. Procedure: Pre-Anesthesia Assessment: - ASA Grade Assessment: IV - A patient with severe systemic disease that is a constant threat to life. After I obtained informed consent, the scope was passed under direct vision. Throughout the procedure, the patient's blood pressure, pulse, and oxygen saturations were monitored continuously. The Scope was introduced through the anus and advanced to 30 cm into the ileum. The patient tolerated the procedure well. The quality of the bowel preparation was good. The colonoscopy was performed with moderate difficulty, primarily due to vigorous peristalsis. Findings: Hemorrhoids were found on perianal exam. There was marked perianal erythema. There was a skin tag that appeared to be oozing slightly. There were multiple sigmoid diverticula. There was a 5 mm polyp in the sigmoid colon removed by saline lift injection hot snare. There was a 5 mm polyp in the transverse colon removed by cold snare. There was an 8 mm polyp in the transverse colon removed by cold snare. Site clipped x 2. There was a moderate sized lipoma in the transverse colon. There was a 4 mm ascending colon polyp removed by cold snare. There was an approximately 15 mm granular LST in the ascending colon. This was largely removed en-bloc by saline lift and hot snare; there was 3 mm polyp remnant that required a separate capture. Soft coag was applied to the polypectomy base using APC at standard settings. Site clipped x 2. There was a non bleeding AVM in the ascending colon that was ablated with APC at standard settings. Site clipped x 2. Hemorrhoids and prolapse change seen on retroflexion. The ileum was deeply intubated, and was normal. Recommendation: - Discharge patient to floor. Clear liquids only today, then advance diet tomorrow if hgb stable. Hold anticoagulation for 48 hours; if hgb is stable, then OK to resume on Wednesday. Maddison Patel M.D. Maddison Patel MD 06/06/2021 2:17:39 PM This report has been signed electronically. Note Initiated On: 06/06/2021 11:55 AM Number of Addenda: 0 I attest to the content of the Intraoperative Record and orders documented therein, exceptions below {[id number]}
--- NOTE | 2021-06-06 14:22 | GI REPORT ---
Patient Name: Pat Daniel Procedure Date: 06/06/2021 11:55 AM Date of : 1940 Admit Type: Inpatient Age: 80 Gender: Female Attending MD: Maddison Patel MD Procedure: Upper GI endoscopy / small bowel enteroscopy Providers: Maddison Patel MD Referring MD: Tino Méndez Md Indications: Acute post hemorrhagic anemia Medicines: See the Anesthesia note for documentation of the administered medications Complications: No immediate complications. Estimated Blood Loss: Estimated blood loss: none. Procedure: Pre-Anesthesia Assessment: - ASA Grade Assessment: IV - A patient with severe systemic disease that is a constant threat to life. After obtaining informed consent, the endoscope was passed under direct vision. Throughout the procedure, the patient's blood pressure, pulse, and oxygen saturations were monitored continuously. The Endoscope was introduced through the mouth, and advanced to the second part of duodenum. The Scope was introduced through the mouth, and advanced to the proximal jejunum. The upper GI endoscopy was accomplished without difficulty. The patient tolerated the procedure well. Findings: The examined esophagus was normal. The Z-line was found 35 cm from the incisors. There was mild gastritis in the fundus with yellow discoloration, suggestive of gastritis from iron supplementation. There was mild spontaneous oozing from this area of gastritis. This was biopsied. There was mild hypertrophy of the rugal folds, and multiple polyps in the stomach, with appearance suggestive of fundic gland polyposis. The remainder of the stomach was normal. Random biopsies done. The duodenum and jejunum were normal. Recommendation: - Discharge patient to floor; see cscopy note for recommendations. Dewey Lazo MD 06/06/2021 2:22:19 PM This report has been signed electronically. Note Initiated On: 06/06/2021 11:55 AM Number of Addenda: 0 I attest to the content of the Intraoperative Record and orders documented therein, exceptions below {[id number]}
[2021-06-06] MEDS ORDERED: ONDANSETRON INJ 2 MG/ML 2 ML VIAL ONE (14:32)
[2021-06-06] MEDS ORDERED: ONDANSETRON INJ 2 MG/ML 2 ML VIAL IV STA (15:00)
--- NOTE | 2021-06-06 15:04 | Anesthesiology Progress Note ---
Date of Service June 06, 2021 Anesthesia Post Procedure Vital Signs Vital Signs: Temp Pulse Pulse Resp BP BP Pulse Ox 06/06/21 14:45 81 16 166/74 H 95 06/06/21 14:30 87 16 157/87 H 94 06/06/21 14:15 85 16 161/73 H 92 06/06/21 14:00 96 H 22 111/73 96 06/06/21 11:34 36.5 C 80 20 122/70 98 06/06/21 10:46 37.0 C 78 18 127/74 97 06/06/21 07:19 36.4 C L 90 18 154/84 H 98 06/06/21 02:36 36.7 C 84 18 112/72 100 06/06/21 00:03 76 06/05/21 23:45 36.4 C L 79 20 117/77 99 06/05/21 19:33 36.6 C 95 H 22 145/84 H 99 06/05/21 16:00 36.2 C L 80 18 148/84 H 96 Transfer of Care Handoff Completed per policy Notes Mental Status: alert / awake / arousable and participated in evaluation Patient Amnestic to Procedure: Yes Nausea / Vomiting: adequately controlled Pain: adequately controlled Airway Patency, RR, SpO2: stable & adequate BP & HR: stable & adequate Hydration State: stable & adequate Anesthetic Complications: no major complications apparent and Pt Satisfied with anesthetic care
--- NOTE | 2021-06-06 17:22 | Hospitalist Progress Note ---
Date of Service June 06, 2021 Assessment & Plan (1) Sepsis: Plan: Secondary to extensive bilateral leg wounds with cellulitis (2) Venous stasis ulcers of both lower extremities: Plan: -Patient presented from home with reports of generalized weakness and nausea, unable to stand from chair at home. Sepsis Lactic acidosis Venous stasis ulcers of both lower extremities Source:bilateral lower extremity cellulitis given scattered open wounds noted on both legs -UA does not suggest UTI, no signs of pneumonia on CXR Cultures negative to date Urine culture mixed probable skin dez CT abdomen showed no acute intra abdominal or pelvic abnormality. IV Zosyn, daptomycin transition to IV daptomycin Appreciate ID input Continue wound care Leukocytosis resolved Plan to transition to linezolid 600 mg p.o. twice daily to complete 14-day course of antibiotics as able (3) SON (acute kidney injury): Plan: -Creatinine 1.3, baseline ~ 1.1 Received IVF hold lisinopril and diuretics for now Monitor renal function Diarrhea Likely secondary to antibiotics Stool for C. difficile negative Monitor Normocytic Anemia Positive fecal occult in setting of Coumadin use Hemoglobin drop partly dilutional S/P EGD: Gastritis, multiple polyps in the stomach suggestive of fundic gland polyposis biopsy taken. S/P Colonoscopy: Hemorrhoids, perianal erythema, skin tag that appeared to be oozing slightly. Multiple sigmoid diverticula. Sigmoid and transverse/ascending colon polyps removed. 15 mm granular LST in ascending colon. Nonbleeding AVM in the ascending colon ablated. 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 to infection -Rate controlled on metoprolol -Anticoagulated on Coumadin, INR 3.9>2.6 Resume Coumadin on Wednesday Monitor INR (7) DM type 2 (diabetes mellitus, type 2): Plan: -Hgb A1c 7.0 09/2020 -Lantus and NovoLog per protocol while hospitalized (8) Diastolic CHF: Plan: -Holding diuretics in the setting of sepsis and SON -Monitor volume status Resume diuretics tomorrow (9) COPD (chronic obstructive pulmonary disease): Plan: Has been on oxygen at home (10) Hypoxemic respiratory failure, chronic: Plan: -Saturating well on chronic 2 L of oxygen -No signs of acute exacerbation, continue home inhalers (11) DVT prophylaxis: Plan: -On Coumadin-held CODE STATUS Full code Disposition May need SNF placement Admission and Anticipated Discharge Date Admission Date: June 02, 2021 Subjective Patient is seen and examined at bedside EGD, colonoscopy earlier today Currently feels drowsy from sedation Updated patient's family at bedside States having minimal diarrhea this morning Denies any chest pain, shortness of breath, vomiting, abdominal pain Reports having nausea today Review of Systems Review of Systems: All systems reviewed & are unremarkable except as noted in Subjective Physical Exam Physical Exam: Physical Exam: Vitals signs as noted above General Appearance:Obese, chronically appearing, no apparent distress Head: normocephalic, Atraumatic Eyes: normal inspection, EOMI Neck: supple, Trachea midline Respiratory/Chest: Decreased breath sounds, CTA, No accessory muscle use Cardiovascular: S1, S2, No murmur Abdomen/GI:Soft, Non tender, Bowel sounds present Extremities/Musculoskeletal:normal inspection, B/L LE wounds, edema Neurologic/Psych:AAOX3, grossly no focal neurological deficits Skin: normal color, warm Results & Data Results & Data ([facility] [place]) Vital Signs (Past 12 Hours) Vital Signs Temp Pulse Resp BP BP Pulse Ox 06/06/21 14:45 81 16 166/74 H 95 06/06/21 14:30 87 16 157/87 H 94 06/06/21 14:15 85 16 161/73 H 92 06/06/21 14:00 96 H 22 111/73 96 06/06/21 11:34 36.5 C 80 20 122/70 98 06/06/21 10:46 37.0 C 78 18 127/74 97 06/06/21 07:19 36.4 C L 90 18 154/84 H 98 Laboratory Results Short CBC 06/06/21 Range/Units 06:21 WBC 7.28 (4.8-10.8) K/uL Hgb 8.7 L (12.0-16.0) g/dL Hct 30.8 L (37-47) % Plt Count 175 (130-400) K/uL BMP 06/06/21 06:21 Sodium 138 Potassium 4.5 Chloride 103 Carbon Dioxide 29 BUN 27 H Creatinine 1.05 Glucose 86 Calcium 8.4 L (1) Diastolic CHF Heart failure chronicity: acute on chronic Qualified Code(s): I50.33 - Acute on chronic diastolic (congestive) heart failure (2) COPD (chronic obstructive pulmonary disease) COPD type: COPD with acute exacerbation Qualified Code(s): J44.1 - Chronic obstructive pulmonary disease with (acute) exacerbation
[2021-06-06] MEDS: PANTOprazole 40 MG TAB PO SCH (20:45)
[2021-06-06] MEDS: INSULIN GLARGINE SOLOSTAR 100 UNITS/ML 3 ML PEN SQ SCH (21:42)
[2021-06-07 08:13] LABS: INR 1.3 (0.9-1.1); Prothrombin Time 12.9 Seconds (9.0-12.0)
[2021-06-07 08:34] LABS: Calcium 8.6 mg/dl (8.5-10.1); Creatinine Clr Calc Pharmacy 50.8 ml/min; Est GFR (African American) 52.4 ml/min; Est GFR (Non-African American) 45.2 ml/min; Magnesium 1.6 mg/dl (1.7-2.4); Potassium 4.8 mmol/L (3.5-5.1)
[2021-06-07 08:48] LABS: BUN Creatinine Ratio 22.6 (10-20)
[2021-06-07] MEDS: lisinopril 40 MG TAB PO SCH (08:55)
[2021-06-07] MEDS: LACTOBACILLUS ACIDOPHILUS 1 GM PACK PO SCH ×3 (08:56→17:26)
[2021-06-07] MEDS: METOPROLOL TARTRATE 50 MG TAB PO SCH ×2 (08:56→20:17)
[2021-06-07] MEDS: MAGNESIUM OXIDE 400 MG TAB PO SCH (08:56)
[2021-06-07] MEDS: AMMONIUM LACTATE 12% LOTION 225 GM BTL EXT SCH ×2 (08:57→20:16)
[2021-06-07] MEDS ORDERED: MAGNESIUM SULFATE / D5W 1 GM/100 ML BAG IV ONE (09:00)
[2021-06-07] MEDS: INSULIN ASPART PER UNIT SC SCH ×4 (09:03→20:39)
[2021-06-07 09:26] LABS: Hematocrit (blood only) 33.3 % (37-47); Mean Corpuscular Hemoglobin 24.7 pg (25-34); Mean Corpuscular Volume 91.2 fL (80-100); Mean Platelet Volume 11.1 fL (7.4-10.4); Nucleated RBC # (auto) 0.02 K/uL (0-0); Nucleated RBC % (auto) 0.3 %; Platelet Count 181 K/uL (130-400); RDW Coefficient of Variation 17.2 % (11.5-14.5); RDW Standard Deviation 57.8 fL (36.4-46.3); Red Blood Count 3.65 M/uL (4.2-5.4); White Blood Count 9.36 K/uL (4.8-10.8)
[2021-06-07] MEDS: FLUTICASONE/VILANTEROL 100/25MCG 14 PUFFS/INHALER INH SCH (10:05)
[2021-06-07] MEDS: DAPTOmycin 325 MG in SYRINGE 0 ML IV SCH (12:25)
[2021-06-07] MEDS: ACETAMINOPHEN 325 MG TAB PO PRN (17:25)
--- NOTE | 2021-06-07 18:51 | Hospitalist Progress Note ---
Date of Service June 07, 2021 Assessment & Plan (1) Sepsis: Plan: Secondary to extensive bilateral leg wounds with cellulitis (2) Venous stasis ulcers of both lower extremities: Plan: -Patient presented from home with reports of generalized weakness and nausea, unable to stand from chair at home. Sepsis Lactic acidosis Venous stasis ulcers of both lower extremities Source:bilateral lower extremity cellulitis given scattered open wounds noted on both legs -UA does not suggest UTI, no signs of pneumonia on CXR Cultures negative to date Urine culture mixed probable skin dez CT abdomen showed no acute intra abdominal or pelvic abnormality. IV Zosyn, daptomycin transition to IV daptomycin Appreciate ID input Continue wound care Leukocytosis resolved Plan to transition to linezolid 600 mg p.o. twice daily to complete 14-day course of antibiotics as able Continue current management (3) SON (acute kidney injury): Plan: -Creatinine 1.3, baseline ~ 1.1 Received IVF hold lisinopril and diuretics for now Monitor renal function Diarrhea Likely secondary to antibiotics Stool for C. difficile negative Diarrhea Improved Monitor Normocytic Anemia Positive fecal occult in setting of Coumadin use Hemoglobin drop partly dilutional S/P EGD: Gastritis, multiple polyps in the stomach suggestive of fundic gland p olyposis biopsy taken. S/P Colonoscopy: Hemorrhoids, perianal erythema, skin tag that appeared to be oozing slightly. Multiple sigmoid diverticula. Sigmoid and transverse/ascending colon polyps removed. 15 mm granular LST in ascending colon. Nonbleeding AVM in the ascending colon ablated. 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 -Rate controlled on metoprolol -Anticoagulated on Coumadin, INR 3.9>2.6>1.3 Resume Coumadin on Wednesday Monitor INR (7) DM type 2 (diabetes mellitus, type 2): Plan: -Hgb A1c 7.0 09/2020 -Lantus and NovoLog per protocol while hospitalized (8) Diastolic CHF: Plan: -Holding diuretics in the setting of sepsis and SON -Monitor volume status Resume lasix today (9) COPD (chronic obstructive pulmonary disease): Plan: Has been on oxygen at home (10) Hypoxemic respiratory failure, chronic: Plan: -Saturating well on chronic 2 L of oxygen -No signs of acute exacerbation, continue home inhalers (11) DVT prophylaxis: Plan: -On Coumadin-held Plan to resume on Wednesday CODE STATUS Full code Disposition May need SNF placement Admission and Anticipated Discharge Date Admission Date: June 02, 2021 Subjective Patient is seen and examined at bedside States doing well today Denies any bleeding issues Also states having no diarrhea today Denies any chest pain, shortness of breath, vomiting, abdominal pain Hb stable Review of Systems Review of Systems: All systems reviewed & are unremarkable except as noted in Subjective Physical Exam Physical Exam: Physical Exam: Vitals signs as noted above General Appearance:Obese, chronically appearing, no apparent distress Head: normocephalic, Atraumatic Eyes: normal inspection, EOMI Neck: supple, Trachea midline Respiratory/Chest: Decreased breath sounds, CTA, No accessory muscle use Cardiovascular: S1, S2, No murmur Abdomen/GI:Soft, Non tender, Bowel sounds present Extremities/Musculoskeletal:normal inspection, B/L LE wounds, edema Neurologic/Psych:AAOX3, grossly no focal neurological deficits Skin: normal color, warm Results & Data Results & Data ([facility]) Vital Signs (Past 12 Hours) Vital Signs Temp Pulse Resp BP Pulse Ox 06/07/21 14:26 36.4 C L 80 20 109/65 96 06/07/21 11:01 36.6 C 75 20 143/72 H 97 06/07/21 07:47 36.6 C 79 18 143/81 H 100 Laboratory Results Short CBC 06/07/21 Range/Units 07:49 WBC 9.36 (4.8-10.8) K/uL Hgb 9.0 L (12.0-16.0) g/dL Hct 33.3 L (37-47) % Plt Count 181 (130-400) K/uL BMP 06/07/21 07:49 Sodium 138 Potassium 4.8 Chloride 103 Carbon Dioxide 34 H BUN 26 H Creatinine 1.15 Glucose 83 Calcium 8.6 (1) Diastolic CHF Heart failure chronicity: acute on chronic Qualified Code(s): I50.33 - Acute on chronic diastolic (congestive) heart failure (2) COPD (chronic obstructive pulmonary disease) COPD type: COPD with acute exacerbation Qualified Code(s): J44.1 - Chronic obstructive pulmonary disease with (acute) exacerbation
[2021-06-07] MEDS: PANTOprazole 40 MG TAB PO SCH (20:17)
[2021-06-07] MEDS: INSULIN GLARGINE SOLOSTAR 100 UNITS/ML 3 ML PEN SQ SCH (20:38)
[2021-06-07] MEDS: MICONAZOLE NITRATE POWDER 43 GM EXT PRN (20:44)
[2021-06-08 07:25] LABS: INR 1.3 (0.9-1.1); Prothrombin Time 12.8 Seconds (9.0-12.0)
[2021-06-08 07:41] LABS: Hematocrit (blood only) 30.5 % (37-47); Hemoglobin 8.2 g/dL (12.0-16.0)
[2021-06-08] MEDS: MAGNESIUM OXIDE 400 MG TAB PO SCH ×3 (08:00→20:43)
[2021-06-08] MEDS: FUROSEMIDE 20 MG TAB PO SCH (08:01)
[2021-06-08] MEDS: LACTOBACILLUS ACIDOPHILUS 1 GM PACK PO SCH ×3 (08:01→16:58)
[2021-06-08] MEDS: FLUTICASONE/VILANTEROL 100/25MCG 14 PUFFS/INHALER INH SCH (08:02)
[2021-06-08] MEDS: METOPROLOL TARTRATE 50 MG TAB PO SCH ×2 (08:02→20:44)
[2021-06-08] MEDS: AMMONIUM LACTATE 12% LOTION 225 GM BTL EXT SCH ×2 (08:02→20:40)
[2021-06-08] MEDS: lisinopril 40 MG TAB PO SCH (08:02)
[2021-06-08] MEDS: INSULIN ASPART PER UNIT SC SCH ×4 (08:06→20:49)
[2021-06-08] MEDS ORDERED: MAGNESIUM SULFATE / D5W 1 GM/100 ML BAG IV ONE (09:00)
[2021-06-08] MEDS ORDERED: ALBUTEROL HFA 8 GM INHALER INH PRN (11:41)
[2021-06-08] MEDS ORDERED: LACTOBACILLUS ACIDOPHILUS 1 GM PACK PO SCH (12:00)
[2021-06-08] MEDS: DAPTOmycin 325 MG in SYRINGE 0 ML IV SCH (12:17)
[2021-06-08] MEDS: SPIRONOLACTONE 25 MG TAB PO SCH (14:12)
--- NOTE | 2021-06-08 14:21 | Hospitalist Progress Note ---
Date of Service June 08, 2021 Assessment & Plan (1) Sepsis: Plan: Secondary to extensive bilateral leg wounds with cellulitis (2) Venous stasis ulcers of both lower extremities: Plan: -Patient presented from home with reports of generalized weakness and nausea, unable to stand from chair at home. Sepsis Lactic acidosis Venous stasis ulcers of both lower extremities Source:bilateral lower extremity cellulitis given scattered open wounds noted on both legs -UA does not suggest UTI, no signs of pneumonia on CXR Cultures negative to date Urine culture mixed probable skin dez CT abdomen showed no acute intra abdominal or pelvic abnormality. IV Zosyn, daptomycin transition to IV daptomycin Appreciate ID input Continue wound care Leukocytosis resolved Plan to transition to linezolid 600 mg p.o. twice daily to complete 14-day course Improving (3) SON (acute kidney injury): Plan: -Creatinine 1.3, baseline ~ 1.1 Received IVF hold lisinopril and diuretics for now Monitor renal function Diarrhea Likely secondary to antibiotics Stool for C. difficile negative Diarrhea Improved Monitor Normocytic Anemia Positive fecal occult in setting of Coumadin use Hemoglobin drop partly dilutional S/P EGD: Gastritis, multiple polyps in the stomach suggestive of fundic gland polyposis biopsy taken. S/P Colonoscopy: Hemorrhoids, perianal erythema, skin tag that appeared to be oozing slightly. Multiple sigmoid diverticula. Sigmoid and transverse/ascending colon polyps removed. 15 mm granular LST in ascending colon. Nonbleeding AVM in the ascending colon ablated. 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 -Rate controlled on metoprolol -Anticoagulated on Coumadin, INR 3.9>2.6>1.3 Resume Coumadin tomorrow Monitor INR (7) DM type 2 (diabetes mellitus, type 2): Plan: -Hgb A1c 7.0 09/2020 -Lantus and NovoLog per protocol while hospitalized (8) Diastolic CHF: Plan: -Holding diuretics in the setting of sepsis and SON -Monitor volume status Resume home diuretics (9) COPD (chronic obstructive pulmonary disease): Plan: Has been on oxygen at home (10) Hypoxemic respiratory failure, chronic: Plan: -Saturating well on chronic 2 L of oxygen -No signs of acute exacerbation, continue home inhalers (11) DVT prophylaxis: Plan: -On Coumadin-held CODE STATUS Full code Disposition May need SNF placement Admission and Anticipated Discharge Date Admission Date: June 02, 2021 Subjective Patient is seen and examined at bedside States having minimal loose bowel movement yesterday No diarrhea this morning No new complaints Hemoglobin 8.2 today Denies any bleeding issues Also denies any chest pain, shortness of breath, vomiting, abdominal pain Review of Systems Review of Systems: All systems reviewed & are unremarkable except as noted in Subjective Physical Exam Physical Exam: Physical Exam: Vitals signs as noted above General Appearance:Obese, chronically appearing, no apparent distress Head: normocephalic, Atraumatic Eyes: normal inspection, EOMI Neck: supple, Trachea midline Respiratory/Chest: Decreased breath sounds, CTA, No accessory muscle use Cardiovascular: S1, S2, No murmur Abdomen/GI:Soft, Non tender, Bowel sounds present Extremities/Musculoskeletal:normal inspection, B/L LE wounds, edema Neurologic/Psych:AAOX3, grossly no focal neurological deficits Skin: normal color, warm Results & Data Results & Data ([facility]) Vital Signs (Past 12 Hours) Vital Signs Temp Pulse Resp BP Pulse Ox 06/08/21 11:10 36.7 C 84 18 104/65 97 06/08/21 08:00 36 C L 86 18 125/74 96 06/08/21 04:00 36.4 C L 76 18 125/76 100 Laboratory Results Short CBC 06/08/21 Range/Units 06:27 Hgb 8.2 L (12.0-16.0) g/dL Hct 30.5 L (37-47) % (1) Diastolic CHF Heart failure chronicity: acute on chronic Qualified Code(s): I50.33 - Acute on chronic diastolic (congestive) heart failure (2) COPD (chronic obstructive pulmonary disease) COPD type: COPD with acute exacerbation Qualified Code(s): J44.1 - Chronic obstructive pulmonary disease with (acute) exacerbation
[2021-06-08] MEDS ORDERED: LOPERAMIDE HCL 2 MG CAP PO PRN (14:24)
[2021-06-08] MEDS: ACETAMINOPHEN 325 MG TAB PO PRN (15:58)
[2021-06-08] MEDS: INSULIN GLARGINE SOLOSTAR 100 UNITS/ML 3 ML PEN SQ SCH (20:41)
[2021-06-08] MEDS: PANTOprazole 40 MG TAB PO SCH (20:43)
[2021-06-08] MEDS: MICONAZOLE NITRATE POWDER 43 GM EXT PRN (20:44)
[2021-06-09 08:47] LABS: Hematocrit (blood only) 31.8 % (37-47); Hemoglobin 8.7 g/dL (12.0-16.0)
[2021-06-09 08:49] LABS: INR 1.3 (0.9-1.1); Prothrombin Time 12.8 Seconds (9.0-12.0)
[2021-06-09] MEDS: INSULIN ASPART PER UNIT SC SCH ×4 (08:55→20:50)
[2021-06-09 09:04] LABS: BUN Creatinine Ratio 21.9 (10-20); Calcium 8.6 mg/dl (8.5-10.1); Est GFR (African American) 58.5 ml/min; Est GFR (Non-African American) 50.5 ml/min; Potassium 4.8 mmol/L (3.5-5.1)
[2021-06-09] MEDS: FLUTICASONE/VILANTEROL 100/25MCG 14 PUFFS/INHALER INH SCH (09:50)
[2021-06-09] MEDS: MICONAZOLE NITRATE POWDER 43 GM EXT PRN (09:50)
[2021-06-09] MEDS: LACTOBACILLUS ACIDOPHILUS 1 GM PACK PO SCH ×3 (09:50→17:10)
[2021-06-09] MEDS: lisinopril 40 MG TAB PO SCH (09:51)
[2021-06-09] MEDS: METOPROLOL TARTRATE 50 MG TAB PO SCH ×2 (09:51→20:49)
[2021-06-09] MEDS: MAGNESIUM OXIDE 400 MG TAB PO SCH ×2 (09:51→20:48)
[2021-06-09] MEDS: SPIRONOLACTONE 25 MG TAB PO SCH (09:51)
[2021-06-09] MEDS: FUROSEMIDE 20 MG TAB PO SCH (09:51)
[2021-06-09] MEDS: AMMONIUM LACTATE 12% LOTION 225 GM BTL EXT SCH ×2 (09:52→20:47)
[2021-06-09] MEDS: DAPTOmycin 325 MG in SYRINGE 0 ML IV SCH (12:29)
--- NOTE | 2021-06-09 12:59 | XRay Report ---
XR chest 1V portable CLINICAL HISTORY: SOB. COMPARISON STUDY: 06/05/2021 TECHNIQUE: 1 view of the chest FINDINGS: Single frontal view of the chest demonstrates the heart size to again be enlarged. There is a decreased inspiratory effort with elevation of the hemidiaphragms and crowding of the bron chovascular markings at the lung bases and centrally. There is minimal bibasilar atelectasis. The rem ainder of the lungs are clear of alveolar opacities. There is no evidence for pleural effusion. There is no evidence for vascular congestion. There is no acute osseous pathology. IMPRESSION: Decreased inspiration with linear bibasilar atelectasis. ACT 112: Negative or not required by law. Electronically signed by: Juancarlos Tavera M.D. 06/09/2021 12:57 PM
--- NOTE | 2021-06-09 17:23 | Hospitalist Progress Note ---
Date of Service June 09, 2021 Assessment & Plan (1) Sepsis: Plan: Secondary to extensive bilateral leg wounds with cellulitis (2) Venous stasis ulcers of both lower extremities: Plan: -Patient presented from home with reports of generalized weakness and nausea, unable to stand from chair at home. Sepsis Lactic acidosis Venous stasis ulcers of both lower extremities Source:bilateral lower extremity cellulitis given scattered open wounds noted on both legs -UA does not suggest UTI, no signs of pneumonia on CXR Cultures negative to date Urine culture mixed probable skin dez CT abdomen showed no acute intra abdominal or pelvic abnormality. IV Zosyn, daptomycin transition to IV daptomycin Appreciate ID input Continue wound care Leukocytosis resolved Plan to transition to linezolid 600 mg p.o. twice daily to complete 14-day course Plan to transition to p.o. antibiotics tomorrow (3) SON (acute kidney injury): Plan: -Creatinine 1.3, baseline ~ 1.1 Received IVF hold lisinopril for now Monitor renal function Diarrhea Likely secondary to antibiotics Stool for C. difficile negative Diarrhea Improved Monitor Normocytic Anemia Positive fecal occult in setting of Coumadin use Hemoglobin drop partly dilutional S/P EGD: Gastritis, multiple polyps in the stomach suggestive of fundic gland polyposis biopsy taken. S/P Colonoscopy: Hemorrhoids, perianal erythema, skin tag that appeared to be oozing slightly. Multiple sigmoid diverticula. Sigmoid and transverse/ascending colon polyps removed. 15 mm granular LST in ascending colon. Nonbleeding AVM in the ascending colon ablated. 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 -Rate controlled on metoprolol -Anticoagulated on Coumadin, INR 3.9>2.6>1.3 Resume Coumadin today Monitor INR (7) DM type 2 (diabetes mellitus, type 2): Plan: -Hgb A1c 7.0 09/2020 -Lantus and NovoLog per protocol while hospitalized (8) Diastolic CHF: Plan: -Holding diuretics in the setting of sepsis and SON -Monitor volume status Continue home diuretics (9) COPD (chronic obstructive pulmonary disease): Plan: Has been on oxygen at home (10) Hypoxemic respiratory failure, chronic: Plan: -Saturating well on chronic 2 L of oxygen -No signs of acute exacerbation, continue home inhalers (11) DVT prophylaxis: Plan: -On Coumadin CODE STATUS Full code Disposition May need SNF placement Admission and Anticipated Discharge Date Admission Date: June 02, 2021 Subjective Patient is seen and examined at bedside Lethargic and feels tired during my encounter Offers no specific complaints States having poor sleep overnight Chest x-ray showed bilateral atelectasis Denies any chest pain, dizziness, nausea, vomiting, abdominal pain Review of Systems Review of Systems: All systems reviewed & are unremarkable except as noted in Subjective Physical Exam Physical Exam: Physical Exam: Vitals signs as noted above General Appearance:Obese, chronically appearing, no apparent distress Head: normocephalic, Atraumatic Eyes: normal inspection, EOMI Neck: supple, Trachea midline Respiratory/Chest: Decreased breath sounds, minimal basal crackles Cardiovascular: S1, S2, No murmur Abdomen/GI:Soft, Non tender, Bowel sounds present Extremities/Musculoskeletal:normal inspection, B/L LE wounds, edema Neurologic/Psych:AAOX3, grossly no focal neurological deficits Skin: normal color, warm Results & Data Results & Data ([facility]) Vital Signs (Past 12 Hours) Vital Signs Temp Pulse Pulse Resp BP BP Pulse Ox 06/09/21 15:18 37.0 C 90 18 145/73 H 98 06/09/21 11:07 37.0 C 86 18 154/78 H 99 06/09/21 07:39 36.8 C 85 18 127/79 98 06/09/21 07:13 86 Laboratory Results Short CBC 06/09/21 Range/Units 08:05 Hgb 8.7 L (12.0-16.0) g/dL Hct 31.8 L (37-47) % BMP 06/09/21 08:05 Sodium 141 Potassium 4.8 Chloride 105 Carbon Dioxide 35 H BUN 23 Creatinine 1.05 Glucose 125 H Calcium 8.6 (1) Diastolic CHF Heart failure chronicity: acute on chronic Qualified Code(s): I50.33 - Acute on chronic diastolic (congestive) heart failure (2) COPD (chronic obstructive pulmonary disease) COPD type: COPD with acute exacerbation Qualified Code(s): J44.1 - Chronic obstructive pulmonary disease with (acute) exacerbation
[2021-06-09] MEDS: INSULIN GLARGINE SOLOSTAR 100 UNITS/ML 3 ML PEN SQ SCH (20:48)
[2021-06-09] MEDS: PANTOprazole 40 MG TAB PO SCH (20:49)
[2021-06-10 06:22] LABS: INR 1.4 (0.9-1.1); Prothrombin Time 13.7 Seconds (9.0-12.0)
[2021-06-10 06:26] LABS: Hematocrit (blood only) 31.8 % (37-47); Hemoglobin 8.6 g/dL (12.0-16.0); Mean Corpuscular Hemoglobin 24.8 pg (25-34); Mean Corpuscular Volume 91.6 fL (80-100); Mean Platelet Volume 10.5 fL (7.4-10.4); Platelet Count 208 K/uL (130-400); RDW Coefficient of Variation 17.2 % (11.5-14.5); RDW Standard Deviation 57.1 fL (36.4-46.3); Red Blood Count 3.47 M/uL (4.2-5.4); White Blood Count 8.63 K/uL (4.8-10.8)
[2021-06-10] MEDS: INSULIN ASPART PER UNIT SC SCH ×4 (08:50→21:10)
[2021-06-10] MEDS: ACETAMINOPHEN 325 MG TAB PO PRN ×2 (08:55→16:10)
[2021-06-10] MEDS: SPIRONOLACTONE 25 MG TAB PO SCH (08:55)
[2021-06-10] MEDS: FLUTICASONE/VILANTEROL 100/25MCG 14 PUFFS/INHALER INH SCH (08:55)
[2021-06-10] MEDS: LACTOBACILLUS ACIDOPHILUS 1 GM PACK PO SCH ×3 (08:55→16:11)
[2021-06-10] MEDS: METOPROLOL TARTRATE 50 MG TAB PO SCH ×2 (08:55→21:03)
[2021-06-10] MEDS: MAGNESIUM OXIDE 400 MG TAB PO SCH ×2 (08:55→21:04)
[2021-06-10] MEDS: lisinopril 40 MG TAB PO SCH (08:56)
[2021-06-10] MEDS: AMMONIUM LACTATE 12% LOTION 225 GM BTL EXT SCH ×2 (08:56→21:05)
[2021-06-10] MEDS: FUROSEMIDE 20 MG TAB PO SCH (08:56)
[2021-06-10] MEDS ORDERED: FUROSEMIDE INJ 20 MG/2 ML VIAL IV ONE (10:39)
[2021-06-10] MEDS: LINEZOLID 600 MG TAB PO SCH ×2 (12:08→23:48)
[2021-06-10] MEDS: WARFARIN SOD 1 MG TAB PO SCH (16:11)
--- NOTE | 2021-06-10 17:08 | Hospitalist Progress Note ---
Date of Service June 10, 2021 Assessment & Plan (1) Sepsis: Plan: Secondary to extensive bilateral leg wounds with cellulitis (2) Venous stasis ulcers of both lower extremities: Plan: -Patient presented from home with reports of generalized weakness and nausea, unable to stand from chair at home. Sepsis Lactic acidosis Venous stasis ulcers of both lower extremities Source:bilateral lower extremity cellulitis given scattered open wounds noted on both legs -UA does not suggest UTI, no signs of pneumonia on CXR Cultures negative to date Urine culture mixed probable skin dez CT abdomen showed no acute intra abdominal or pelvic abnormality. IV Zosyn, daptomycin transition to IV daptomycin--completed 7-day course Appreciate ID input (Needs total 2 week course of Abx) Continue wound care Leukocytosis resolved Started on linezolid 600 mg twice daily to complete 1 more week of course as recommended by ID (3) SON (acute kidney injury): Plan: -Creatinine 1.3, baseline ~ 1.1 Received IVF hold lisinopril for now Monitor renal function Diarrhea Likely secondary to antibiotics Stool for C. difficile negative Diarrhea Improved Monitor Normocytic Anemia Positive fecal occult in setting of Coumadin use Hemoglobin drop partly dilutional S/P EGD: Gastritis, multiple polyps in the stomach suggestive of fundic gland polyposis biopsy taken. S/P Colonoscopy: Hemorrhoids, perianal erythema, skin tag that appeared to be oozing slightly. Multiple sigmoid diverticula. Sigmoid and transverse/ascending colon polyps removed. 15 mm granular LST in ascending colon. Nonbleeding AVM in the ascending colon ablated. 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 -Rate controlled on metoprolol -Anticoagulated on Coumadin, INR 3.9>2.6>1.3>1.4 Continue Coumadin Monitor INR (7) DM type 2 (diabetes mellitus, type 2): Plan: -Hgb A1c 7.0 09/2020 -Lantus and NovoLog per protocol while hospitalized (8) Diastolic CHF: Plan: -Holding diuretics in the setting of sepsis and SON -Monitor volume status Continue home diuretics Will give extra dose of IV lasix today (9) COPD (chronic obstructive pulmonary disease): Plan: Has been on oxygen at home (10) Hypoxemic respiratory failure, chronic: Plan: -Saturating well on chronic 2 L of oxygen -No signs of acute exacerbation, continue home inhalers (11) DVT prophylaxis: Plan: -On Coumadin CODE STATUS Full code Disposition Needs SNF placement Admission and Anticipated Discharge Date Admission Date: June 02, 2021 Subjective Patient is seen and examined at bedside Less lethargic today compared to yesterday States having minimal dyspnea Denies any chest pain, dizziness, nausea, vomiting, abdominal pain Offers no other complaints Review of Systems Review of Systems: All systems reviewed & are unremarkable except as noted in Subjective Physical Exam Physical Exam: Physical Exam: Vitals signs as noted above General Appearance:Obese, chronically appearing, no apparent distress Head: normocephalic, Atraumatic Eyes: normal inspection, EOMI Neck: supple, Trachea midline Respiratory/Chest: Decreased breath sounds, minimal basal crackles Cardiovascular: S1, S2, No murmur Abdomen/GI:Soft, Non tender, Bowel sounds present Extremities/Musculoskeletal:normal inspection, B/L LE wounds, edema Neurologic/Psych:AAOX3, grossly no focal neurological deficits Skin: normal color, warm Results & Data Results & Data ([facility]) Vital Signs (Past 12 Hours) Vital Signs Temp Pulse Pulse Resp BP Pulse Ox 06/10/21 15:14 86 06/10/21 15:09 36.6 C 88 18 156/73 H 94 06/10/21 11:09 36.7 C 76 18 133/78 97 06/10/21 07:23 36.7 C 87 18 148/79 H 98 06/10/21 06:59 85 Laboratory Results Short CBC 06/10/21 Range/Units 05:38 WBC 8.63 (4.8-10.8) K/uL Hgb 8.6 L (12.0-16.0) g/dL Hct 31.8 L (37-47) % Plt Count 208 (130-400) K/uL (1) Diastolic CHF Heart failure chronicity: acute on chronic Qualified Code(s): I50.33 - Acute on chronic diastolic (congestive) heart failure (2) COPD (chronic obstructive pulmonary disease) COPD type: COPD with acute exacerbation Qualified Code(s): J44.1 - Chronic obstructive pulmonary disease with (acute) exacerbation
[2021-06-10] MEDS: PANTOprazole 40 MG TAB PO SCH (21:03)
[2021-06-10] MEDS: INSULIN GLARGINE SOLOSTAR 100 UNITS/ML 3 ML PEN SQ SCH (21:04)
[2021-06-11] MEDS: PROMETHAZINE HCL 6.25 MG in SODIUM CHLORIDE 0.9% 50 ML IV PRN (01:30)
[2021-06-11 07:35] LABS: Hematocrit (blood only) 33.1 % (37-47); Mean Corpuscular Hemoglobin 25.1 pg (25-34); Mean Corpuscular Hgb Conc 27.2 g/dL (32-36); Mean Corpuscular Volume 92.5 fL (80-100); Mean Platelet Volume 10.7 fL (7.4-10.4); Platelet Count 214 K/uL (130-400); RDW Coefficient of Variation 17.1 % (11.5-14.5); Red Blood Count 3.58 M/uL (4.2-5.4)
[2021-06-11 07:39] LABS: INR 1.5 (0.9-1.1); Prothrombin Time 15.1 Seconds (9.0-12.0)
[2021-06-11 08:06] LABS: BUN Creatinine Ratio 19.4 (10-20); Calcium 8.7 mg/dl (8.5-10.1); Creatinine Clr Calc Pharmacy 57.7 ml/min; Est GFR (African American) 63.6 ml/min; Est GFR (Non-African American) 54.9 ml/min; Magnesium 0.9 mg/dl (1.7-2.4); Potassium 4.6 mmol/L (3.5-5.1)
[2021-06-11] MEDS: LINEZOLID 600 MG TAB PO SCH ×2 (09:09→21:42)
[2021-06-11] MEDS: FUROSEMIDE 20 MG TAB PO SCH (09:09)
[2021-06-11] MEDS: lisinopril 40 MG TAB PO SCH (09:09)
[2021-06-11] MEDS: LACTOBACILLUS ACIDOPHILUS 1 GM PACK PO SCH ×3 (09:09→16:50)
[2021-06-11] MEDS: AMMONIUM LACTATE 12% LOTION 225 GM BTL EXT SCH ×2 (09:10→21:39)
[2021-06-11] MEDS: SPIRONOLACTONE 25 MG TAB PO SCH (09:10)
[2021-06-11] MEDS: METOPROLOL TARTRATE 50 MG TAB PO SCH ×2 (09:10→21:42)
[2021-06-11] MEDS: INSULIN ASPART PER UNIT SC SCH ×4 (09:30→21:40)
[2021-06-11] MEDS: MAGNESIUM CHLORIDE 64MG DELAYED REL TAB PO SCH ×3 (09:31→21:42)
[2021-06-11] MEDS: MAGNESIUM SULFATE / D5W 1 GM/100 ML BAG IV SCH ×4 (09:32→18:49)
[2021-06-11] MEDS: FLUTICASONE/VILANTEROL 100/25MCG 14 PUFFS/INHALER INH SCH (09:32)
[2021-06-11] MEDS: ACETAMINOPHEN 325 MG TAB PO PRN (09:47)
--- NOTE | 2021-06-11 15:37 | Hospitalist Progress Note ---
Date of Service June 11, 2021 Assessment & Plan (1) Sepsis: Plan: Secondary to extensive bilateral leg wounds with cellulitis per Dr. Méndez's notes with addendum: (2) Venous stasis ulcers of both lower extremities: Plan: -Patient presented from home with reports of generalized weakness and nausea, unable to stand from chair at home. Sepsis Lactic acidosis Venous stasis ulcers of both lower extremities Source:bilateral lower extremity cellulitis given scattered open wounds noted on both legs -UA does not suggest UTI, no signs of pneumonia on CXR Cultures negative to date Urine culture mixed probable skin dez CT abdomen showed no acute intra abdominal or pelvic abnormality. IV Zosyn, daptomycin transition to IV daptomycin--completed 7-day course Appreciate ID input (Needs total 2 week course of Abx) Continue wound care Leukocytosis resolved Started on linezolid 600 mg twice daily to complete 1 more week of course as recommended by ID 06/11 on Linezolid Day 2/7 improving monitor closely (3) SON (acute kidney injury): Plan: -Creatinine 1.3, baseline ~ 1.1 Received IVF - crea 0.9 hold lisinopril for now Monitor renal function Diarrhea Likely secondary to antibiotics Stool for C. difficile negative Diarrhea resolved Monitor Normocytic Anemia Positive fecal occult in setting of Coumadin use Hemoglobin drop partly dilutional S/P EGD: Gastritis, multiple polyps in the stomach suggestive of fundic gland polyposis biopsy taken. S/P Colonoscopy: Hemorrhoids, perianal erythema, skin tag that appeared to be oozing slightly. Multiple sigmoid diverticula. Sigmoid and transverse/ascending colon polyps removed. 15 mm granular LST in ascending col on. Nonbleeding AVM in the ascending colon ablated. 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 -Rate controlled on metoprolol INR 1.5 coumadin increased to 3mg po daily monitor INR daily (7) DM type 2 (diabetes mellitus, type 2): Plan: -Hgb A1c 7.0 09/2020 -Lantus and NovoLog per protocol while hospitalized (8) Diastolic CHF: Plan: -Holding diuretics in the setting of sepsis and SON -Monitor volume status Continue home diuretics (9) COPD (chronic obstructive pulmonary disease): Plan: Has been on oxygen at home (10) Hypoxemic respiratory failure, chronic: Plan: -Saturating well on chronic 2 L of oxygen -No signs of acute exacerbation, continue home inhalers (11) DVT prophylaxis: Plan: -On Coumadin CODE STATUS Full code Disposition awaiting to transition to SNF Admission and Anticipated Discharge Date Admission Date: June 02, 2021 Subjective ff up for cellulitis, etc seen resting in bed, comfortable on 2.5 L NC states she feels fine overall no chest pain, dyspnea, palpitations, dizziness leg pain improving still on the weaker side no other symptoms Review of Systems Review of Systems: all noted and negative except for above Physical Exam Physical Exam: General- oriented x 3, not in distress, speaks in sentences with no effort or accessory muscle use Head- atraumatic Eyes- PERRL, EOMI, anicteric ENT- oropharynx clear Neck- supple, no JVD, no adenopathy, no thyromegaly; carotids +2/2, no bruits appreciated Lungs- clear to auscultation bilaterally, no rales/wheezes Heart- normal rate, regular rhythm; no murmur, no gallop, no rub appreciated Abdomen- normal bowel sounds, nondistended, soft, nontender, no masses or hepatosplenomegaly Extremities- (+) mild lower ext edema with moderate erythema, mild warmth, dry skin, no open wounds/ulcer Neuro- alert, oriented x 3; CN 2-12 grossly intact; motor 5/5 bilaterally;sensation 100% on all extremities; no other gross focal neurologic deficits Skin- warm & dry Results & Data Results & Data ([facility]) Vital Signs (Past 12 Hours) Vital Signs Temp Pulse Pulse Resp BP BP Pulse Ox 06/11/21 15:35 84 06/11/21 11:58 37.0 C 104 H 16 130/71 99 06/11/21 07:39 80 06/11/21 07:09 36.7 C 85 20 135/76 98 06/11/21 05:16 36.7 C 83 18 155/85 H 97 all noted and reviewed including below (1) Diastolic CHF Heart failure chronicity: acute on chronic Qualified Code(s): I50.33 - Acute on chronic diastolic (congestive) heart failure (2) COPD (chronic obstructive pulmonary disease) COPD type: COPD with acute exacerbation Qualified Code(s): J44.1 - Chronic obstructive pulmonary disease with (acute) exacerbation
[2021-06-11] MEDS: WARFARIN SOD 3 MG TAB PO SCH (16:45)
[2021-06-11] MEDS: INSULIN GLARGINE SOLOSTAR 100 UNITS/ML 3 ML PEN SQ SCH (21:41)
[2021-06-11] MEDS: PANTOprazole 40 MG TAB PO SCH (21:42)
[2021-06-12 07:49] LABS: INR 1.8 (0.9-1.1)
[2021-06-12] MEDS: FLUTICASONE/VILANTEROL 100/25MCG 14 PUFFS/INHALER INH SCH (08:06)
[2021-06-12] MEDS: lisinopril 40 MG TAB PO SCH (08:06)
[2021-06-12] MEDS: SPIRONOLACTONE 25 MG TAB PO SCH (08:07)
[2021-06-12] MEDS: METOPROLOL TARTRATE 50 MG TAB PO SCH ×2 (08:07→20:27)
[2021-06-12] MEDS: LINEZOLID 600 MG TAB PO SCH ×2 (08:07→20:27)
[2021-06-12] MEDS: MAGNESIUM CHLORIDE 64MG DELAYED REL TAB PO SCH ×2 (08:07→20:27)
[2021-06-12] MEDS: FUROSEMIDE 20 MG TAB PO SCH (08:07)
[2021-06-12] MEDS: LACTOBACILLUS ACIDOPHILUS 1 GM PACK PO SCH ×3 (08:07→16:14)
[2021-06-12] MEDS: INSULIN ASPART PER UNIT SC SCH ×4 (08:08→20:26)
[2021-06-12] MEDS: AMMONIUM LACTATE 12% LOTION 225 GM BTL EXT SCH ×2 (08:08→20:28)
[2021-06-12 09:53] LABS: Carbon Dioxide > 45 mmol/L (21-32); Chloride 92 mmol/L (98-107); Potassium 4.5 mmol/L (3.5-5.1); Sodium 141 mmol/L (136-145)
[2021-06-12 09:54] LABS: BUN Creatinine Ratio 17.7 (10-20); Blood Urea Nitrogen 17 mg/dl (6-23); Calcium 8.8 mg/dl (8.5-10.1); Creatinine Clr Calc Pharmacy 58.7 ml/min; Est GFR (African American) 65.2 ml/min; Est GFR (Non-African American) 56.2 ml/min; Glucose 88 mg/dl (70-99(Fasting)); Magnesium 1.5 mg/dl (1.7-2.4)
--- NOTE | 2021-06-12 13:26 | Hospitalist Progress Note ---
Date of Service June 12, 2021 Assessment & Plan (1) Sepsis: Plan: Secondary to extensive bilateral leg wounds with cellulitis per Dr. Méndez's notes with addendum: (2) Venous stasis ulcers of both lower extremities: Plan: -Patient presented from home with reports of generalized weakness and nausea, unable to stand from chair at home. Sepsis Lactic acidosis Venous stasis ulcers of both lower extremities Source:bilateral lower extremity cellulitis given scattered open wounds noted on both legs -UA does not suggest UTI, no signs of pneumonia on CXR Cultures negative to date Urine culture mixed probable skin dez CT abdomen showed no acute intra abdominal or pelvic abnormality. IV Zosyn, daptomycin transition to IV daptomycin--completed 7-day course Appreciate ID input (Needs total 2 week course of Abx) Continue wound care Leukocytosis resolved Started on linezolid 600 mg twice daily to complete 1 more week of course as recommended by ID 06/12 on Linezolid Day 3/7 continues to improve monitor closely (3) SON (acute kidney injury): Plan: -Creatinine 1.3, baseline ~ 1.1 Received IVF - crea 0.9 resume Lisinopril Diarrhea Likely secondary to antibiotics Stool for C. difficile negative Diarrhea resolved Monitor Normocytic Anemia Positive fecal occult in setting of Coumadin use Hemoglobin drop partly dilutional S/P EGD: Gastritis, multiple polyps in the stomach suggestive of fundic gland polyposis biopsy taken. S/P Colonoscopy: Hemorrhoids, perianal erythema, skin tag that appeared to be oozing slightly. Multiple sigmoid diverticula. Sigmoid and transverse/ascending colon polyps removed. 15 mm granular LST in ascending colon. Nonbleeding AVM in the ascending colon ablated. 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 -Rate controlled on metoprolol INR 1.8 coumadin 3mg po daily monitor INR daily (7) DM type 2 (diabetes mellitus, type 2): Plan: -Hgb A1c 7.0 09/2020 -Lantus and NovoLog per protocol while hospitalized (8) Diastolic CHF: Plan: -Monitor volume status Continue home diuretics (9) COPD (chronic obstructive pulmonary disease): Plan: Has been on oxygen at home (10) Hypoxemic respiratory failure, chronic: Plan: -Saturating well on chronic 2 L of oxygen -No signs of acute exacerbation, continue home inhalers (11) DVT prophylaxis: Plan: -On Coumadin CODE STATUS Full code Disposition awaiting to transition to SNF plan of care discussed with patient in detail and at length all questions answered also discussed with patient's son yesterday they are understanding, agreeable, comfortable with the plan of care Admission and Anticipated Discharge Date Admission Date: June 02, 2021 Subjective ff up for leg cellulitis, etc seen resting in bed, comfortable in 2.5 L o2 states she feels fine overall, just anxious about SNF acceptance no chest pain, dyspnea, palpitations, dizziness no leg pain, fever/chills no bleeding no other symptoms Review of Systems Review of Systems: all noted and negative except for above Physical Exam Physical Exam: General- oriented x 3, not in distress, speaks in sentences with no effort or accessory muscle use Eyes- anicteric Neck- no JVD Lungs- clear BS bilaterally, no rales/wheezes Heart- normal rate, regular rhythm; no murmurs Abdomen- normal bowel sounds, nondistended, soft, nontender Extremities-mild lower leg edema, mild-moderate erythema, mild warmth no tenderness Neuro- alert, oriented x 3; no gross focal neurologic deficits Skin- warm & dry Results & Data Results & Data ([facility]) Vital Signs (Past 12 Hours) Vital Signs Temp Pulse Pulse Resp BP BP Pulse Ox 06/12/21 07:34 36.5 C 88 16 136/79 96 06/12/21 07:23 78 06/12/21 02:59 36.6 C 72 18 133/64 95 all noted and reviewed including below (1) Diastolic CHF Heart failure chronicity: acute on chronic Qualified Code(s): I50.33 - Acute on chronic diastolic (congestive) heart failure (2) COPD (chronic obstructive pulmonary disease) COPD type: COPD with acute exacerbation Qualified Code(s): J44.1 - Chronic obstructive pulmonary disease with (acute) exacerbation
[2021-06-12] MEDS: MAGNESIUM SULFATE / D5W 1 GM/100 ML BAG IV SCH ×2 (13:58→16:06)
[2021-06-12] MEDS: COVID-19 VAC,AD26(JANSSEN)/PF 0.5 ML SYR IM ONE (14:59)
[2021-06-12] MEDS: WARFARIN SOD 3 MG TAB PO SCH (16:09)
[2021-06-12] MEDS: INSULIN GLARGINE SOLOSTAR 100 UNITS/ML 3 ML PEN SQ SCH (20:26)
[2021-06-12] MEDS: PANTOprazole 40 MG TAB PO SCH (20:27)
[2021-06-13] MEDS: SPIRONOLACTONE 25 MG TAB PO SCH (08:49)
[2021-06-13] MEDS: LINEZOLID 600 MG TAB PO SCH ×2 (08:49→20:40)
[2021-06-13] MEDS: lisinopril 40 MG TAB PO SCH (08:49)
[2021-06-13] MEDS: LACTOBACILLUS ACIDOPHILUS 1 GM PACK PO SCH ×3 (08:49→17:11)
[2021-06-13] MEDS: FUROSEMIDE 20 MG TAB PO SCH (08:49)
[2021-06-13] MEDS: METOPROLOL TARTRATE 50 MG TAB PO SCH ×2 (08:49→20:39)
[2021-06-13] MEDS: MAGNESIUM CHLORIDE 64MG DELAYED REL TAB PO SCH ×2 (08:49→20:39)
[2021-06-13] MEDS: FLUTICASONE/VILANTEROL 100/25MCG 14 PUFFS/INHALER INH SCH (08:50)
[2021-06-13] MEDS: AMMONIUM LACTATE 12% LOTION 225 GM BTL EXT SCH ×2 (08:50→20:40)
[2021-06-13] MEDS: INSULIN ASPART PER UNIT SC SCH ×4 (08:51→20:37)
[2021-06-13 09:27] LABS: INR 2.2 (0.9-1.1); Prothrombin Time 20.9 Seconds (9.0-12.0)
[2021-06-13 09:51] LABS: BUN Creatinine Ratio 15.6 (10-20); Blood Urea Nitrogen 17 mg/dl (6-23); Calcium 8.8 mg/dl (8.5-10.1); Carbon Dioxide > 45 mmol/L (21-32); Chloride 90 mmol/L (98-107); Creatinine Clr Calc Pharmacy 50.7 ml/min; Est GFR (African American) 55.9 ml/min; Est GFR (Non-African American) 48.2 ml/min; Glucose 154 mg/dl (70-99(Fasting)); Magnesium 1.5 mg/dl (1.7-2.4); Potassium 4.8 mmol/L (3.5-5.1); Sodium 139 mmol/L (136-145)
[2021-06-13] MEDS: COVID-19 VAC,AD26(JANSSEN)/PF 0.5 ML SYR IM ONE (13:23)
[2021-06-13] MEDS: MAGNESIUM SULFATE / D5W 1 GM/100 ML BAG IV SCH ×2 (13:26→15:07)
[2021-06-13] MEDS: WARFARIN SOD 3 MG TAB PO SCH (15:56)
--- NOTE | 2021-06-13 16:11 | Hospitalist Progress Note ---
Date of Service June 13, 2021 Assessment & Plan (1) Sepsis: Plan: Secondary to extensive bilateral leg wounds with cellulitis per Dr. Méndez's notes with addendum: (2) Venous stasis ulcers of both lower extremities: Plan: -Patient presented from home with reports of generalized weakness and nausea, unable to stand from chair at home. Sepsis Lactic acidosis Venous stasis ulcers of both lower extremities Source:bilateral lower extremity cellulitis given scattered open wounds noted on both legs -UA does not suggest UTI, no signs of pneumonia on CXR Cultures negative to date Urine culture mixed probable skin dez CT abdomen showed no acute intra abdominal or pelvic abnormality. IV Zosyn, daptomycin transition to IV daptomycin--completed 7-day course Appreciate ID input (Needs total 2 week course of Abx) Continue wound care Leukocytosis resolved Started on linezolid 600 mg twice daily to complete 1 more week of course as recommended by ID 06/13 on Linezolid Day 4/7 continues to improve monitor closely (3) SON (acute kidney injury): Plan: -Creatinine 1.3, baseline ~ 1.1 Received IVF - crea 0.9 resolved Diarrhea Likely secondary to antibiotics Stool for C. difficile negative Diarrhea resolved Monitor Normocytic Anemia Positive fecal occult in setting of Coumadin use Hemoglobin drop partly dilutional S/P EGD: Gastritis, multiple polyps in the stomach suggestive of fundic gland polyposis biopsy taken. S/P Colonoscopy: Hemorrhoids, perianal erythema, skin tag that appeared to be oozing slightly. Multiple sigmoid diverticula. Sigmoid and transverse/ascending colon polyps removed. 15 mm granular LST in ascending colon. Nonbleeding AVM in the ascending colon ablated. 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 -Rate controlled on metoprolol INR 2.2 coumadin 3mg po daily monitor INR daily (7) DM type 2 (diabetes mellitus, type 2): Plan: -Hgb A1c 7.0 09/2020 -Lantus and NovoLog per protocol while hospitalized (8) Diastolic CHF: Plan: -Monitor volume status Continue home diuretics (9) COPD (chronic obstructive pulmonary disease): Plan: Has been on oxygen at home (10) Hypoxemic respiratory failure, chronic: Plan: -Saturating well on chronic 2 L of oxygen -No signs of acute exacerbation, continue home inhalers (11) DVT prophylaxis: Plan: -On Coumadin CODE STATUS Full code Disposition awaiting to transition to SNF plan of care discussed with patient in detail and at length all questions answered also discussed with patient's son yesterday they are understanding, agreeable, comfortable with the plan of care Admission and Anticipated Discharge Date Admission Date: June 02, 2021 Subjective ff up for leg cellulitis, etc seen resting in chair, comfortable states she feels fine overall no chest pain, dyspnea, palpitations, dizziness no leg pain no other symptoms Review of Systems Review of Systems: all noted and negative except for above Physical Exam Physical Exam: General- oriented x 3, not in distress, speaks in sentences with no effort or accessory muscle use Eyes- anicteric Neck- no JVD Lungs- clear BS BL Heart- normal rate, regular rhythm; no murmurs Abdomen- normal bowel sounds, nondistended, soft, nontender Extremities- mild lower leg edema- improving, erythema- resolving, no calf tenderness Neuro- alert, oriented x 3; no gross focal neurologic deficits Skin- warm & dry Results & Data Results & Data ([facility]) Vital Signs (Past 12 Hours) Vital Signs Temp Pulse Pulse Resp BP Pulse Ox 06/13/21 15:40 95 H 06/13/21 14:46 36.6 C 98 H 20 128/66 96 06/13/21 11:16 36.6 C 84 20 114/73 93 06/13/21 07:50 85 06/13/21 07:20 36.9 C 85 20 126/75 98 all noted and reviewed including below (1) Diastolic CHF Heart failure chronicity: acute on chronic Qualified Code(s): I50.33 - Acute on chronic diastolic (congestive) heart failure (2) COPD (chronic obstructive pulmonary disease) COPD type: COPD with acute exacerbation Qualified Code(s): J44.1 - Chronic obstructive pulmonary disease with (acute) exacerbation
[2021-06-13] MEDS: INSULIN GLARGINE SOLOSTAR 100 UNITS/ML 3 ML PEN SQ SCH (20:37)
[2021-06-13] MEDS: PANTOprazole 40 MG TAB PO SCH (20:40)
[2021-06-14 07:26] LABS: INR 2.5 (0.9-1.1); Prothrombin Time 23.3 Seconds (9.0-12.0)
[2021-06-14] MEDS: FUROSEMIDE 20 MG TAB PO SCH (09:22)
[2021-06-14] MEDS: AMMONIUM LACTATE 12% LOTION 225 GM BTL EXT SCH ×2 (09:22→20:42)
[2021-06-14] MEDS: LACTOBACILLUS ACIDOPHILUS 1 GM PACK PO SCH ×3 (09:22→17:48)
[2021-06-14] MEDS: FLUTICASONE/VILANTEROL 100/25MCG 14 PUFFS/INHALER INH SCH (09:22)
[2021-06-14] MEDS: LINEZOLID 600 MG TAB PO SCH ×2 (09:23→20:49)
[2021-06-14] MEDS: METOPROLOL TARTRATE 50 MG TAB PO SCH ×2 (09:23→20:50)
[2021-06-14] MEDS: SPIRONOLACTONE 25 MG TAB PO SCH (09:23)
[2021-06-14] MEDS: lisinopril 40 MG TAB PO SCH (09:23)
[2021-06-14] MEDS: MAGNESIUM CHLORIDE 64MG DELAYED REL TAB PO SCH ×3 (09:23→20:50)
[2021-06-14] MEDS: INSULIN ASPART PER UNIT SC SCH ×4 (09:24→20:42)
--- NOTE | 2021-06-14 14:51 | Hospitalist Progress Note ---
Date of Service June 14, 2021 Assessment & Plan (1) Sepsis: Plan: Secondary to extensive bilateral leg wounds with cellulitis per Dr. Méndez's notes with addendum: (2) Venous stasis ulcers of both lower extremities: Plan: -Patient presented from home with reports of generalized weakness and nausea, unable to stand from chair at home. Sepsis Lactic acidosis Venous stasis ulcers of both lower extremities Source:bilateral lower extremity cellulitis given scattered open wounds noted on both legs -UA does not suggest UTI, no signs of pneumonia on CXR Cultures negative to date Urine culture mixed probable skin dez CT abdomen showed no acute intra abdominal or pelvic abnormality. IV Zosyn, daptomycin transition to IV daptomycin--completed 7-day course Appreciate ID input (Needs total 2 week course of Abx) Continue wound care Leukocytosis resolved Started on linezolid 600 mg twice daily to complete 1 more week of course as recommended by ID 06/14 on Linezolid Day 5/7 continues to improve monitor closely (3) SON (acute kidney injury): Plan: -Creatinine 1.3, baseline ~ 1.1 Received IVF - crea 0.9 resolved Diarrhea Likely secondary to antibiotics Stool for C. difficile negative Diarrhea resolved Monitor Normocytic Anemia Positive fecal occult in setting of Coumadin use Hemoglobin drop partly dilutional S/P EGD: Gastritis, multiple polyps in the stomach suggestive of fundic gland polyposis biopsy taken. S/P Colonoscopy: Hemorrhoids, perianal erythema, skin tag that appeared to be oozing slightly. Multiple sigmoid diverticula. Sigmoid and transverse/ascending colon polyps removed. 15 mm granular LST in ascending colon. Nonbleeding AVM in the ascending colon ablated. 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 -Rate controlled on metoprolol INR 2.5 coumadin 3mg po daily monitor INR daily (7) DM type 2 (diabetes mellitus, type 2): Plan: -Hgb A1c 7.0 09/2020 -Lantus and NovoLog per protocol while hospitalized (8) Diastolic CHF: Plan: -Monitor volume status Continue home diuretics (9) COPD (chronic obstructive pulmonary disease): Plan: Has been on oxygen at home (10) Hypoxemic respiratory failure, chronic: Plan: -Saturating well on chronic 2 L of oxygen -No signs of acute exacerbation, continue home inhalers (11) DVT prophylaxis: Plan: -On Coumadin INR therapeutic CODE STATUS Full code Disposition awaiting to transition to SNF plan of care discussed with patient in detail and at length all questions answered also discussed with patient's son yesterday they are understanding, agreeable, comfortable with the plan of care Admission and Anticipated Discharge Date Admission Date: June 02, 2021 Subjective Follow-up for leg cellulitis, etc. Seen resting in bedside chair, comfortable, on 2 L of oxygen States she feels fine overall No shortness of breath, cough, chest pain, palpitations, dizziness No leg pain No fevers or chills Eager to be discharged to halfway facility No other symptoms Review of Systems Review of Systems: all noted and negative except for above Physical Exam Physical Exam: General- oriented x 3, not in distress, speaks in sentences with no effort or accessory muscle use Eyes- anicteric Neck- no JVD Lungs- clear breath sounds, no crackles or wheezing bilaterally Heart- normal rate, regular rhythm; no murmurs Abdomen- normal bowel sounds, nondistended, soft, nontender Extremities-lower extremity edema, resolved Mild erythema, no tenderness or warmth Neuro- alert, oriented x 3; no gross focal neurologic deficits Skin- warm & dry Results & Data Results & Data ([facility]) Vital Signs (Past 12 Hours) Vital Signs Temp Pulse Pulse Resp BP BP Pulse Ox 06/14/21 10:59 37.2 C 82 21 110/58 L 96 06/14/21 10:28 81 06/14/21 07:45 36.5 C 88 19 140/73 94 all noted and reviewed including below (1) Diastolic CHF Heart failure chronicity: acute on chronic Qualified Code(s): I50.33 - Acute on chronic diastolic (congestive) heart failure (2) COPD (chronic obstructive pulmonary disease) COPD type: COPD with acute exacerbation Qualified Code(s): J44.1 - Chronic obstructive pulmonary disease with (acute) exacerbation
[2021-06-14] MEDS: WARFARIN SOD 3 MG TAB PO SCH (16:00)
[2021-06-14] MEDS: INSULIN GLARGINE SOLOSTAR 100 UNITS/ML 3 ML PEN SQ SCH (20:42)
[2021-06-14] MEDS: PANTOprazole 40 MG TAB PO SCH (20:50)
[2021-06-15 07:21] LABS: BUN Creatinine Ratio 19.7 (10-20); Calcium 8.5 mg/dl (8.5-10.1); Est GFR (African American) 42.4 ml/min; Est GFR (Non-African American) 36.6 ml/min; Magnesium 1.4 mg/dl (1.7-2.4); Potassium 4.5 mmol/L (3.5-5.1)
[2021-06-15 07:36] LABS: INR 3.2 (0.9-1.1); Prothrombin Time 29.3 Seconds (9.0-12.0)
[2021-06-15] MEDS: INSULIN ASPART PER UNIT SC SCH ×4 (09:01→21:26)
[2021-06-15] MEDS: LACTOBACILLUS ACIDOPHILUS 1 GM PACK PO SCH ×4 (09:03→17:42)
[2021-06-15] MEDS: METOPROLOL TARTRATE 50 MG TAB PO SCH ×2 (09:03→21:25)
[2021-06-15] MEDS: MAGNESIUM CHLORIDE 64MG DELAYED REL TAB PO SCH ×3 (09:03→21:24)
[2021-06-15] MEDS: FLUTICASONE/VILANTEROL 100/25MCG 14 PUFFS/INHALER INH SCH (09:04)
[2021-06-15] MEDS: AMMONIUM LACTATE 12% LOTION 225 GM BTL EXT SCH ×2 (09:04→21:26)
[2021-06-15] MEDS: LINEZOLID 600 MG TAB PO SCH ×2 (09:04→21:24)
--- NOTE | 2021-06-15 11:11 | Hospitalist Progress Note ---
Date of Service June 15, 2021 Assessment & Plan (1) Sepsis: Plan: Secondary to extensive bilateral leg wounds with cellulitis per Dr. Méndez's notes with addendum: (2) Venous stasis ulcers of both lower extremities: Plan: -Patient presented from home with reports of generalized weakness and nausea, unable to stand from chair at home. Sepsis Lactic acidosis Venous stasis ulcers of both lower extremities Source:bilateral lower extremity cellulitis given scattered open wounds noted on both legs -UA does not suggest UTI, no signs of pneumonia on CXR Cultures negative to date Urine culture mixed probable skin dez CT abdomen showed no acute intra abdominal or pelvic abnormality. IV Zosyn, daptomycin transition to IV daptomycin--completed 7-day course Appreciate ID input (Needs total 2 week course of Abx) Continue wound care Leukocytosis resolved Started on linezolid 600 mg twice daily to complete 1 more week of course as recommended by ID 06/15 on Linezolid Day 6/7 continues to improve monitor closely (3) SON (acute kidney injury): Plan: -Creatinine 1.3, baseline ~ 1.1 Received IVF -Creatinine 1.3 Hold Lasix, Aldactone, lisinopril Encouraged oral fluid intake Repeat BMP tomorrow Diarrhea Likely secondary to antibiotics Stool for C. difficile negative Diarrhea resolved Monitor Normocytic Anemia Positive fecal occult in setting of Coumadin use Hemoglobin drop partly dilutional S/P EGD: Gastritis, multiple polyps in the stomach suggestive of fundic gland polyposis biopsy taken. S/P Colonoscopy: Hemorrhoids, perianal erythema, skin tag that appeared to be oozing slightly. Multiple sigmoid diverticula. Sigmoid and transverse/ascending colon polyps removed. 15 mm granular LST in ascending colon. Nonbleeding AVM in the ascending colon ablated. 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 -Rate controlled on metoprolol INR 3.2 Hold Coumadin monitor INR daily (7) DM type 2 (diabetes mellitus, type 2): Plan: -Hgb A1c 7.0 09/2020 -Lantus and NovoLog per protocol while hospitalized (8) Diastolic CHF: Plan: -On the dry side Hold diuretics (9) COPD (chronic obstructive pulmonary disease): Plan: Has been on oxygen at home (10) Hypoxemic respiratory failure, chronic: Plan: -Saturating well on chronic 2 L of oxygen -No signs of acute exacerbation, continue home inhalers (11) DVT prophylaxis: Plan: -INR 3.2 Hold Coumadin CODE STATUS Full code Disposition awaiting to transition to SNF plan of care discussed with patient in detail and at length all questions answered she is understanding, agreeable, comfortable with the plan of care Admission and Anticipated Discharge Date Admission Date: June 02, 2021 Subjective Follow-up for leg cellulitis, etc. Seen resting in bed, comfortable, not in distress On 2 L of oxygen States she feels tired but fine overall No changes with breathing No leg pain No other symptoms Review of Systems Review of Systems: all noted and negative except for above Physical Exam Physical Exam: General- oriented x 3, not in distress, speaks in sentences with no effort or accessory muscle use Eyes- anicteric Neck- no JVD Lungs- clear breath sounds bilaterally Heart- normal rate, regular rhythm; no murmurs Abdomen- normal bowel sounds, nondistended, soft, nontender Extremities-no leg edema, mild erythema, no warmth, positive tenderness Neuro- alert, oriented x 3; no gross focal neurologic deficits Skin- warm & dry Results & Data Results & Data ([facility]) Vital Signs (Past 12 Hours) Vital Signs Temp Pulse Resp BP Pulse Ox 06/15/21 08:16 36.6 C 92 H 18 129/57 L 95 06/15/21 02:02 36.7 C 80 18 128/67 96 all noted and reviewed including below (1) Diastolic CHF Heart failure chronicity: acute on chronic Qualified Code(s): I50.33 - Acute on chronic diastolic (congestive) heart failure (2) COPD (chronic obstructive pulmonary disease) COPD type: COPD with acute exacerbation Qualified Code(s): J44.1 - Chronic obstructive pulmonary disease with (acute) exacerbation
[2021-06-15] MEDS: PANTOprazole 40 MG TAB PO SCH (21:24)
[2021-06-15] MEDS: INSULIN GLARGINE SOLOSTAR 100 UNITS/ML 3 ML PEN SQ SCH (21:25)
[2021-06-16 06:51] LABS: BUN Creatinine Ratio 21.7 (10-20); Calcium 8.8 mg/dl (8.5-10.1); Creatinine Clr Calc Pharmacy 42.4 ml/min; Est GFR (African American) 45.6 ml/min; Est GFR (Non-African American) 39.4 ml/min; Magnesium 1.3 mg/dl (1.7-2.4); Potassium 4.7 mmol/L (3.5-5.1)
[2021-06-16 06:58] LABS: INR 2.9 (0.9-1.1); Prothrombin Time 26.9 Seconds (9.0-12.0)
[2021-06-16] MEDS: MAGNESIUM CHLORIDE 64MG DELAYED REL TAB PO SCH ×3 (08:09→20:56)
[2021-06-16] MEDS: METOPROLOL TARTRATE 50 MG TAB PO SCH ×2 (08:09→20:56)
[2021-06-16] MEDS: FLUTICASONE/VILANTEROL 100/25MCG 14 PUFFS/INHALER INH SCH (08:09)
[2021-06-16] MEDS: LACTOBACILLUS ACIDOPHILUS 1 GM PACK PO SCH ×3 (08:09→17:07)
[2021-06-16] MEDS: AMMONIUM LACTATE 12% LOTION 225 GM BTL EXT SCH ×2 (08:10→20:57)
[2021-06-16] MEDS: LINEZOLID 600 MG TAB PO SCH ×2 (08:10→20:56)
[2021-06-16] MEDS: INSULIN ASPART PER UNIT SC SCH ×4 (08:13→20:55)
[2021-06-16] MEDS ORDERED: SODIUM CHLORIDE 0.9% 1000ML 1,000 ML IV SCH (08:45)
[2021-06-16] MEDS: MAGNESIUM SULFATE / D5W 1 GM/100 ML BAG IV SCH ×2 (09:12→11:14)
[2021-06-16] MEDS ORDERED: ONDANSETRON INJ 2 MG/ML 2 ML VIAL IV PRN (11:35)
[2021-06-16] MEDS ORDERED: PROMETHAZINE HCL 6.25 MG in SODIUM CHLORIDE 0.9% 50 ML IV PRN (11:38)
--- NOTE | 2021-06-16 12:01 | Hospitalist Progress Note ---
Date of Service June 16, 2021 Assessment & Plan (1) Sepsis: Plan: Secondary to extensive bilateral leg wounds with cellulitis per Dr. Méndez's notes with addendum: (2) Venous stasis ulcers of both lower extremities: Plan: -Patient presented from home with reports of generalized weakness and nausea, unable to stand from chair at home. Sepsis Lactic acidosis Venous stasis ulcers of both lower extremities Source:bilateral lower extremity cellulitis given scattered open wounds noted on both legs -UA does not suggest UTI, no signs of pneumonia on CXR Cultures negative to date Urine culture mixed probable skin dez CT abdomen showed no acute intra abdominal or pelvic abnormality. IV Zosyn, daptomycin transition to IV daptomycin--completed 7-day course Appreciate ID input (Needs total 2 week course of Abx) Continue wound care Leukocytosis resolved Started on linezolid 600 mg twice daily to complete 1 more week of course as recommended by ID 06/16 on Linezolid Day 11/27 continues to improve monitor closely (3) SON (acute kidney injury): Plan: -Creatinine 1.3, baseline ~ 1.1 Received IVF -Creatinine 1.3 Hold Lasix, Aldactone, lisinopril Encouraged oral fluid intake Creatinine still 1.3 Gentle IV NSS ordered Hold Lasix, Aldactone, lisinopril Diarrhea Likely secondary to antibiotics Stool for C. difficile negative Diarrhea resolved Monitor Positive nausea but no signs of obstruction, no constipation Monitor closely Normocytic Anemia Positive fecal occult in setting of Coumadin use Hemoglobin drop partly dilutional S/P EGD: Gastritis, multiple polyps in the stomach suggestive of fundic gland polyposis biopsy taken. S/P Colonoscopy: Hemorrhoids, perianal erythema, skin tag that appeared to be oozing slightly. Multiple sigmoid diverticula. Sigmoid and transverse/ascending colon polyps removed. 15 mm granular LST in ascending colon. Nonbleeding AVM in the ascending colon ablated. 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 -Rate controlled on metoprolol INR 2.9 Hold Coumadin monitor INR daily (7) DM type 2 (diabetes mellitus, type 2): Plan: -Hgb A1c 7.0 09/2020 -Lantus and NovoLog per protocol while hospitalized (8) Diastolic CHF: Plan: -On the dry side Hold diuretics (9) COPD (chronic obstructive pulmonary disease): Plan: Has been on oxygen at home (10) Hypoxemic respiratory failure, chronic: Plan: -Saturating well on chronic 2 L of oxygen -No signs of acute exacerbation, continue home inhalers (11) DVT prophylaxis: Plan: -INR 2.9 Hold Coumadin CODE STATUS Full code Disposition awaiting to transition to SNF plan of care discussed with patient in detail and at length all questions answered she is understanding, agreeable, comfortable with the plan of care Admission and Anticipated Discharge Date Admission Date: June 02, 2021 Subjective Follow-up for leg cellulitis, etc. Seen sitting up in bed, not in distress Reports nausea today No abdominal pain, fevers or chills, chest pain, shortness of breath, leg pain Positive BMs, no melena or hematochezia No other symptoms Review of Systems Review of Systems: all noted and negative except for above Physical Exam Physical Exam: General- oriented x 3, not in distress, speaks in sentences with no effort or accessory muscle use Eyes- anicteric Neck- no JVD Lungs- clear breath sounds bilaterally Heart- normal rate, regular rhythm; no murmurs Abdomen- normal bowel sounds, nondistended, soft, nontender Extremities- no pretibial edema, mild to moderate erythema, improving No warmth, positive tenderness Neuro- alert, oriented x 3; no gross focal neurologic deficits Skin- warm & dry Results & Data Results & Data ([place]) Vital Signs (Past 12 Hours) Vital Signs Temp Pulse Pulse Resp BP BP Pulse Ox 06/16/21 11:05 36.7 C 84 18 111/71 95 06/16/21 07:31 36.6 C 74 18 121/76 96 06/16/21 07:08 79 06/16/21 03:28 36.6 C 74 18 140/82 97 06/16/21 01:19 78 all noted and reviewed including below (1) Diastolic CHF Heart failure chronicity: acute on chronic Qualified Code(s): I50.33 - Acute on chronic diastolic (congestive) heart failure (2) COPD (chronic obstructive pulmonary disease) COPD type: COPD with acute exacerbation Qualified Code(s): J44.1 - Chronic obstructive pulmonary disease with (acute) exacerbation
[2021-06-16] MEDS: FAMOTIDINE 20 MG TAB PO SCH (20:54)
[2021-06-16] MEDS: INSULIN GLARGINE SOLOSTAR 100 UNITS/ML 3 ML PEN SQ SCH (20:55)
[2021-06-17 07:02] LABS: INR 2.9 (0.9-1.1); Prothrombin Time 26.9 Seconds (9.0-12.0)
[2021-06-17 07:17] LABS: Calcium 8.8 mg/dl (8.5-10.1); Creatinine Clr Calc Pharmacy 50.5 ml/min; Est GFR (African American) 55.9 ml/min; Est GFR (Non-African American) 48.2 ml/min; Magnesium 1.7 mg/dl (1.7-2.4); Potassium 4.7 mmol/L (3.5-5.1)
[2021-06-17] MEDS: INSULIN ASPART PER UNIT SC SCH ×4 (08:20→21:03)
[2021-06-17] MEDS: FLUTICASONE/VILANTEROL 100/25MCG 14 PUFFS/INHALER INH SCH (08:21)
[2021-06-17] MEDS: MAGNESIUM CHLORIDE 64MG DELAYED REL TAB PO SCH ×3 (08:21→20:54)
[2021-06-17] MEDS: LACTOBACILLUS ACIDOPHILUS 1 GM PACK PO SCH ×3 (08:21→17:02)
[2021-06-17] MEDS: METOPROLOL TARTRATE 50 MG TAB PO SCH ×2 (08:22→20:55)
[2021-06-17] MEDS: AMMONIUM LACTATE 12% LOTION 225 GM BTL EXT SCH ×2 (08:25→20:50)
--- NOTE | 2021-06-17 12:54 | Hospitalist Progress Note ---
Date of Service June 17, 2021 Assessment & Plan (1) Sepsis: Plan: Secondary to extensive bilateral leg wounds with cellulitis per Dr. Méndez's notes with addendum: (2) Venous stasis ulcers of both lower extremities: Plan: -Patient presented from home with reports of generalized weakness and nausea, unable to stand from chair at home. Sepsis Lactic acidosis Venous stasis ulcers of both lower extremities Source:bilateral lower extremity cellulitis given scattered open wounds noted on both legs -UA does not suggest UTI, no signs of pneumonia on CXR Cultures negative to date Urine culture mixed probable skin dez CT abdomen showed no acute intra abdominal or pelvic abnormality. IV Zosyn, daptomycin transition to IV daptomycin--completed 7-day course Appreciate ID input (Needs total 2 week course of Abx) Continue wound care Leukocytosis resolved Started on linezolid 600 mg twice daily to complete 1 more week of course as recommended by ID 06/17 Patient completed 7-day course of daptomycin and Zosyn, as well as 7-day course of linezolid ID recommends 2-week course of antibiotics continues to improve monitor closely (3) SON (acute kidney injury): Plan: Creatinine noted to be increased to 1.3 from baseline of 0.9 Lasix and Aldactone, lisinopril held Received IVF -Creatinine improved, now 1.09 Hold Lasix, Aldactone, lisinopril today, resume tomorrow Encouraged oral fluid intake Diarrhea Likely secondary to antibiotics Stool for C. difficile negative Diarrhea resolved Nausea resolved Normocytic Anemia Positive fecal occult in setting of Coumadin use Hemoglobin drop partly dilutional S/P EGD: Gastritis, multiple polyps in the stomach suggestive of fundic gland polyposis biopsy taken. S/P Colonoscopy: Hemorrhoids, perianal erythema, skin tag that appeared to be oozing slightly. Multiple sigmoid diverticula. Sigmoid and transverse/ascending colon polyps removed. 15 mm granular LST in ascending colon. Nonbleeding AVM in the ascending colon ablated. 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 -Rate controlled on metoprolol INR 2.9 On Coumadin 3 mg daily Monitor INR daily (7) DM type 2 (diabetes mellitus, type 2): Plan: -Hgb A1c 7.0 09/2020 -Lantus and NovoLog per protocol while hospitalized (8) Diastolic CHF: Plan: -On the dry side Hold diuretics 1 more day take today Resume Lasix and Aldactone tomorrow May need to reduce Lasix dose, monitor kidney function closely (9) COPD (chronic obstructive pulmonary disease): Plan: At baseline O2 by nasal cannula (10) Hypoxemic respiratory failure, chronic: Plan: -Saturating well on chronic 2 L of oxygen -No signs of acute exacerbation, continue home inhalers (11) DVT prophylaxis: Plan: -INR 2.9 On Coumadin CODE STATUS Full code Disposition awaiting bed availability at [facility] plan of care discussed with patient in detail and at length all questions answered she is understanding, agreeable, comfortable with the plan of care Admission and Anticipated Discharge Date Admission Date: June 02, 2021 Subjective Follow-up for leg cellulitis, etc. Seen resting in bed, comfortable, in good spirits, making jokes States she feels fine overall Nausea and abdominal discomfort has resolved No chest pain, shortness of breath, palpitations, dizziness No bleeding Denies any leg pain, does have some tenderness in the left lower leg No other symptoms Review of Systems Review of Systems: all noted and negative except for above Physical Exam Physical Exam: General- oriented x 3, not in distress, speaks in sentences with no effort or accessory muscle use Eyes- anicteric Neck- no JVD Lungs- clear breath sounds bilaterally, no wheezing, no crackles Heart- normal rate, regular rhythm; no murmurs Abdomen- normal bowel sounds, nondistended, soft, nontender Extremities- no pretibial edema, erythema improving, no warmth, moderate tenderness left lower extremity Neuro- alert, oriented x 3; no gross focal neurologic deficits Skin- warm & dry Results & Data Results & Data ([facility]) Vital Signs (Past 12 Hours) Vital Signs Temp Pulse Pulse Resp BP Pulse Ox 06/17/21 11:13 36.4 C L 74 18 130/78 98 06/17/21 07:44 36.7 C 80 20 120/62 96 06/17/21 07:01 73 06/17/21 03:58 36.7 C 73 18 127/79 99 all noted and reviewed including below (1) Diastolic CHF Heart failure chronicity: acute on chronic Qualified Code(s): I50.33 - Acute on chronic diastolic (congestive) heart failure (2) COPD (chronic obstructive pulmonary disease) COPD type: COPD with acute exacerbation Qualified Code(s): J44.1 - Chronic obstructive pulmonary disease with (acute) exacerbation
[2021-06-17] MEDS: WARFARIN SOD 3 MG TAB PO SCH (17:01)
[2021-06-17] MEDS: FAMOTIDINE 20 MG TAB PO SCH (20:49)
[2021-06-17] MEDS: INSULIN GLARGINE SOLOSTAR 100 UNITS/ML 3 ML PEN SQ SCH (20:50)
[2021-06-18 07:17] LABS: BUN Creatinine Ratio 26.1 (10-20); Calcium 8.7 mg/dl (8.5-10.1); Creatinine Clr Calc Pharmacy 46.7 ml/min; Est GFR (African American) 52.4 ml/min; Est GFR (Non-African American) 45.2 ml/min; Magnesium 1.6 mg/dl (1.7-2.4); Potassium 4.7 mmol/L (3.5-5.1)
[2021-06-18] MEDS: METOPROLOL TARTRATE 50 MG TAB PO SCH ×2 (08:16→20:17)
[2021-06-18] MEDS: MAGNESIUM CHLORIDE 64MG DELAYED REL TAB PO SCH ×3 (08:17→20:16)
[2021-06-18] MEDS: LACTOBACILLUS ACIDOPHILUS 1 GM PACK PO SCH ×3 (08:17→18:12)
[2021-06-18] MEDS: FLUTICASONE/VILANTEROL 100/25MCG 14 PUFFS/INHALER INH SCH (08:18)
[2021-06-18] MEDS: AMMONIUM LACTATE 12% LOTION 225 GM BTL EXT SCH ×2 (08:19→20:16)
[2021-06-18] MEDS: INSULIN ASPART PER UNIT SC SCH ×4 (08:24→20:18)
[2021-06-18] MEDS ORDERED: MAGNESIUM SULFATE / D5W 1 GM/100 ML BAG IV ONE (10:00)
[2021-06-18] MEDS ORDERED: FUROSEMIDE 40 MG TAB PO ONE (11:45)
[2021-06-18] MEDS: WARFARIN SOD 3 MG TAB PO SCH (18:10)
--- NOTE | 2021-06-18 19:33 | Hospitalist Progress Note ---
Date of Service June 18, 2021 Assessment & Plan (1) Sepsis: Plan: Present on admission with generalized weakness and nausea Secondary to extensive bilateral leg wounds with cellulitis Met sepsis criteria on admission with elevated heart rate, WBC, lactate 2.3 and febrile Received IV antibiotic and transition to p.o. Clinically improved (2) Venous stasis ulcers of both lower extremities: Plan: Sepsis Lactic acidosis Venous stasis ulcers of both lower extremities Source:bilateral lower extremity cellulitis given scattered open wounds noted on both legs UA does not suggest UTI, no signs of pneumonia on CXR Cultures negative to date Urine culture mixed probable skin dez CT abdomen showed no acute intra abdominal or pelvic abnormality. IV Zosyn, daptomycin transition to IV daptomycin--completed 7-day course Appreciate ID input recommended a total 2 week course of Abx) Patient completed 7-day course of daptomycin and Zosyn, as well as 7-day course of linezolid Continue daily wound care Clinically stable (3) SON (acute kidney injury): Plan: Creatinine noted to be increased to 1.3 from baseline of 0.9 Lasix, Aldactone and lisinopril held Received IVF Creatinine stable at 1.1 Lasix resumed today We will consider to resume Aldactone and lisinopril in a.m. Continue monitor BMP Diarrhea Likely secondary to antibiotics Stool for C. difficile negative Diarrhea resolved Nausea resolved Normocytic Anemia Positive fecal occult in setting of Coumadin use Hemoglobin drop partly dilutional S/P EGD: Gastritis, multiple polyps in the stomach suggestive of fundic gland polyposis biopsy taken. S/P Colonoscopy: Hemorrhoids, perianal erythema, skin tag that appeared to be oozing slightly. Multiple sigmoid diverticula. Sigmoid and transverse/ascending colon polyps removed. 15 mm granular LST in ascending colon. Nonbleeding AVM in the ascending colon ablated. 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 -Rate controlled on metoprolol INR 2.9 On Coumadin 3 mg daily Monitor INR daily (7) DM type 2 (diabetes mellitus, type 2): Plan: -Hgb A1c 7.0 09/2020 -Lantus and NovoLog per protocol while hospitalized (8) Diastolic CHF: Plan: On the dry side Resume Lasix today and Aldactone tomorrow Continue monitor BMP (9) COPD (chronic obstructive pulmonary disease): Plan: At baseline O2 by nasal cannula (10) Hypoxemic respiratory failure, chronic: Plan: -Saturating well on chronic 2 L of oxygen -No signs of acute exacerbation, continue home inhalers (11) DVT prophylaxis: Plan: -INR 2.9 On Coumadin CODE STATUS Full code Disposition Waiting for placement Admission and Anticipated Discharge Date Admission Date: June 02, 2021 Subjective Patient was seen and examined for follow-up of lower extremity cellulitis Lying in bed with no acute distress Patient said her legs are looking much better Denies any chest pain, palpitation, dizziness, shortness of breath. Review of Systems 2 Review of Systems: All systems reviewed & are unremarkable except as noted in Subjective Physical Exam Physical Exam: General- No acute distress Head- atraumatic Eyes- PERRL, EOMI, ENT- oropharynx clear Neck- supple, no JVD Lungs- clear to auscultation Heart- regular rhythm; no murmur Abdomen- normal bowel sounds, soft, nontender Extremities- no calf tenderness, +dry scaly skin Neuro- alert, oriented x 3; PERRL, EOMI; no facial palsy; no dysarthria Skin- warm & dry Results & Data Results & Data ([facility]) Vital Signs (Past 12 Hours) Vital Signs Temp Pulse Resp BP Pulse Ox 06/18/21 15:52 36.7 C 73 18 129/80 97 06/18/21 10:58 37.2 C 69 18 117/73 99 06/18/21 07:54 37.0 C 78 18 134/81 96 (1) Diastolic CHF Heart failure chronicity: acute on chronic Qualified Code(s): I50.33 - Acute on chronic diastolic (congestive) heart failure (2) COPD (chronic obstructive pulmonary disease) COPD type: COPD with acute exacerbation Qualified Code(s): J44.1 - Chronic obstructive pulmonary disease with (acute) exacerbation
[2021-06-18] MEDS: INSULIN GLARGINE SOLOSTAR 100 UNITS/ML 3 ML PEN SQ SCH (20:17)
[2021-06-18] MEDS: FAMOTIDINE 20 MG TAB PO SCH (20:17)
[2021-06-18] MEDS: ACETAMINOPHEN 325 MG TAB PO PRN (22:53)
[2021-06-19 07:13] LABS: Hematocrit (blood only) 35.1 % (37-47); Hemoglobin 9.8 g/dL (12.0-16.0); Mean Corpuscular Hemoglobin 24.9 pg (25-34); Mean Corpuscular Hgb Conc 27.9 g/dL (32-36); Mean Corpuscular Volume 89.3 fL (80-100); Mean Platelet Volume 10.8 fL (7.4-10.4); Platelet Count 169 K/uL (130-400); RDW Coefficient of Variation 17.4 % (11.5-14.5); RDW Standard Deviation 56.7 fL (36.4-46.3); Red Blood Count 3.93 M/uL (4.2-5.4); White Blood Count 5.51 K/uL (4.8-10.8)
[2021-06-19 07:21] LABS: INR 3.2 (0.9-1.1); Prothrombin Time 29.3 Seconds (9.0-12.0)
[2021-06-19 07:46] LABS: BUN Creatinine Ratio 29.7 (10-20); Creatinine Clr Calc Pharmacy 47.4 ml/min; Est GFR (African American) 54.7 ml/min; Est GFR (Non-African American) 47.2 ml/min; Magnesium 1.6 mg/dl (1.7-2.4); Potassium 4.6 mmol/L (3.5-5.1)
[2021-06-19] MEDS: MAGNESIUM CHLORIDE 64MG DELAYED REL TAB PO SCH ×3 (08:16→21:51)
[2021-06-19] MEDS: METOPROLOL TARTRATE 50 MG TAB PO SCH ×2 (08:16→21:51)
[2021-06-19] MEDS: LACTOBACILLUS ACIDOPHILUS 1 GM PACK PO SCH (08:16)
[2021-06-19] MEDS: AMMONIUM LACTATE 12% LOTION 225 GM BTL EXT SCH ×2 (08:17→21:49)
[2021-06-19] MEDS: FLUTICASONE/VILANTEROL 100/25MCG 14 PUFFS/INHALER INH SCH (08:17)
[2021-06-19] MEDS: INSULIN ASPART PER UNIT SC SCH ×4 (08:26→21:50)
[2021-06-19] MEDS ORDERED: MAGNESIUM SULFATE / D5W 1 GM/100 ML BAG IV ONE (09:30)
[2021-06-19] MEDS: FUROSEMIDE 20 MG TAB PO SCH (11:04)
[2021-06-19] MEDS: ADVANCED PROBIOTIC 1250 MG CAPSULE PO SCH (12:31)
[2021-06-19] MEDS: WARFARIN SOD 3 MG TAB PO SCH (16:07)
--- NOTE | 2021-06-19 20:50 | Hospitalist Progress Note ---
Date of Service June 19, 2021 Assessment & Plan (1) Sepsis: Plan: Present on admission with generalized weakness and nausea Secondary to extensive bilateral leg wounds with cellulitis Met sepsis criteria on admission with elevated heart rate, WBC, lactate 2.3 and febrile Completed 14 days course of antibiotic Clinically improved (2) Venous stasis ulcers of both lower extremities: Plan: Sepsis Lactic acidosis Venous stasis ulcers of both lower extremities Source:bilateral lower extremity cellulitis given scattered open wounds noted on both legs UA does not suggest UTI, no signs of pneumonia on CXR Cultures negative to date Urine culture mixed probable skin dez CT abdomen showed no acute intra abdominal or pelvic abnormality. IV Zosyn, daptomycin transition to IV daptomycin--completed 7-day course Appreciate ID input recommended a total 2 week course of Abx) Patient completed 7-day course of daptomycin and Zosyn, as well as 7-day course of linezolid Continue daily wound care Clinically stable (3) SON (acute kidney injury): Plan: Creatinine noted to be increased to 1.3 from baseline of 0.9 Lasix, Aldactone and lisinopril held Received IVF Creatinine stable at 1.1 Lasix and spironolactone resumed Will resume lisinopril in a.m, but will decrease it to 5mg Continue monitor BMP Diarrhea Likely secondary to antibiotics Stool for C. difficile negative Diarrhea resolved Nausea resolved Normocytic Anemia Positive fecal occult in setting of Coumadin use Hemoglobin drop partly dilutional S/P EGD: Gastritis, multiple polyps in the stomach suggestive of fundic gland polyposis biopsy taken. S/P Colonoscopy: Hemorrhoids, perianal erythema, skin tag that appeared to be oozing slightly. Multiple sigmoid diverticula. Sigmoid and transverse/ascending colon polyps removed. 15 mm granular LST in ascending colon. Nonbleeding AVM in the ascending colon ablated. 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 -Rate controlled on metoprolol INR 3.2 today On Coumadin 3 mg daily Monitor INR daily (7) DM type 2 (diabetes mellitus, type 2): Plan: -Hgb A1c 7.0 09/2020 -Lantus and NovoLog per protocol while hospitalized (8) Diastolic CHF: Plan: On the dry side Continue Lasix and Aldactone Continue monitor BMP (9) COPD (chronic obstructive pulmonary disease): Plan: At baseline O2 by nasal cannula (10) Hypoxemic respiratory failure, chronic: Plan: -Saturating well on chronic 2 L of oxygen -No signs of acute exacerbation, continue home inhalers (11) DVT prophylaxis: Plan: -INR 3.2 On Coumadin CODE STATUS Full code Disposition Waiting for placement Admission and Anticipated Discharge Date Admission Date: June 02, 2021 Subjective Patient was seen and examined for follow-up of lower extremity cellulitis Sitting in chair with no acute distress Patient said her legs are looking much better Denies any chest pain, palpitation, dizziness, shortness of breath. Review of Systems Review of Systems: All systems reviewed & are unremarkable except as noted in Subjective Physical Exam Physical Exam: General- No acute distress Head- atraumatic Eyes- PERRL, EOMI, ENT- oropharynx clear Neck- supple, no JVD Lungs- clear to auscultation Heart- regular rhythm; no murmur Abdomen- normal bowel sounds, soft, nontender Extremities- no calf tenderness, +dry scaly skin, +edema Neuro- alert, oriented x 3; PERRL, EOMI; no facial palsy; no dysarthria Skin- warm & dry Results & Data Results & Data ([facility]) Vital Signs (Past 12 Hours) Vital Signs Temp Pulse Resp BP Pulse Ox 06/19/21 19:56 36.7 C 80 18 136/79 98 06/19/21 15:08 36.7 C 71 18 124/83 98 06/19/21 11:35 36.4 C L 74 18 126/76 97 (1) Diastolic CHF Heart failure chronicity: acute on chronic Qualified Code(s): I50.33 - Acute on chronic diastolic (congestive) heart failure (2) COPD (chronic obstructive pulmonary disease) COPD type: COPD with acute exacerbation Qualified Code(s): J44.1 - Chronic obstructive pulmonary disease with (acute) exacerbation
[2021-06-19] MEDS: FAMOTIDINE 20 MG TAB PO SCH (21:49)
[2021-06-19] MEDS: INSULIN GLARGINE SOLOSTAR 100 UNITS/ML 3 ML PEN SQ SCH (21:50)
[2021-06-20 07:29] LABS: INR 3.8 (0.9-1.1)
[2021-06-20 07:31] LABS: BUN Creatinine Ratio 31.9 (10-20); Creatinine Clr Calc Pharmacy 46.7 ml/min; Est GFR (African American) 53.5 ml/min; Est GFR (Non-African American) 46.2 ml/min; Magnesium 1.6 mg/dl (1.7-2.4); Potassium 4.6 mmol/L (3.5-5.1)
[2021-06-20 07:56] VITALS: O2SAT 97
[2021-06-20] MEDS: MAGNESIUM CHLORIDE 64MG DELAYED REL TAB PO SCH (08:08)
[2021-06-20] MEDS: FUROSEMIDE 20 MG TAB PO SCH (08:09)
[2021-06-20] MEDS: ADVANCED PROBIOTIC 1250 MG CAPSULE PO SCH (08:09)
[2021-06-20] MEDS: SPIRONOLACTONE 25 MG TAB PO SCH (08:15)
[2021-06-20] MEDS: FLUTICASONE/VILANTEROL 100/25MCG 14 PUFFS/INHALER INH SCH (08:15)
[2021-06-20] MEDS: METOPROLOL TARTRATE 50 MG TAB PO SCH (08:17)
[2021-06-20] MEDS: MAGNESIUM SULFATE / D5W 1 GM/100 ML BAG IV SCH ×2 (08:17→10:18)
[2021-06-20] MEDS: INSULIN ASPART PER UNIT SC SCH ×2 (08:23→12:29)
[2021-06-20] MEDS: AMMONIUM LACTATE 12% LOTION 225 GM BTL EXT SCH (08:23)
[2021-06-20 11:23] VITALS: BP 129/61; PULSE 80; TEMP 98.4
--- NOTE | 2021-06-20 13:05 | Discharge Summary ---
Date of Service June 20, 2021 Admission HPI Per Admitting Provider 80-year-old female with PMH COPD with chronic hypoxic respiratory failure on 2 L of oxygen, DM type II, chronic diastolic CHF, tachybradycardia syndrome s/p previous pacemaker that was removed due to infection, atrial fibrillation anticoagulated on Coumadin, CKD stage III, and other problems listed below who presents to the ED for evaluation of generalized weakness. Patient reports being unable to get out of her chair at home x 2 days. She has had nausea however no vomiting. Reports some intermittent left lower quadrant abdominal pain. Bilateral lower extremities have thick, scaly skin with scattered open areas. Patient reports these are chronic. No fevers or chills. Denies chest pain, shortness of breath, palpitations. No lightheadedness, dizziness, diaphoresis, syncopal events. Denies fevers and chills. No urinary symptoms. In the ED, patient has a low-grade temp of 38.0, mildly tachycardic in the 90s. BP stable. Labs show WBC 25K, creatinine 1.3, lactate 2.1 --> 2.3, Mg+ 1.0. Patient was given Tylenol, IV ceftriaxone, IV Vanco, IVF, IV magnesium replacement. Admission Exam Per Admitting Provider Constitutional: WD/WN, vitals as above + obese Eyes: PERRL, conjunctivae normal, anicteric sclerae ENMT: external ear and nose normal, oropharynx normal Respiratory: normal respiratory effort; no respiratory distress Auscultation: + diminished lung sounds Cardiovascular: Rate/Rhythm: + tachycardic and + irregularly irregular Vessels: normal peripheral pulses Extremities: + edema (+2 edema BLE) Gastrointestinal (Abdomen): Inspection/Auscultation: normal bowel sounds; abdomen not distended Percussion/Palpation: + abdomen tender (RUQ) and abdomen soft; no hepatosplenomegaly Musculoskeletal: no cyanosis or clubbing, extremities motor strength 5/5 Skin: no rashes, warm and dry Thick, scaly skin noted BLE with various scattered open areas, erythema noted Neurologic: PERRL, EOMI, accommodation nl, no face palsy, no dysarthria Psychiatric: A+Ox3, euthymic affect Principal Diagnosis Sepsis: Venous stasis ulcers of both lower extremities: SON (acute kidney injury): Diarrhea Normocytic Anemia Hypomagnesemia: Chronic atrial fibrillation: Tachycardia-bradycardia syndrome: DM type 2 (diabetes mellitus, type 2): Diastolic CHF: COPD (chronic obstructive pulmonary disease): Hypoxemic respiratory failure, chronic Discharge Exam General- No acute distress Head- atraumatic Eyes- PERRL, EOMI, ENT- oropharynx clear Neck- supple, no JVD Lungs- clear to auscultation Heart- regular rhythm; no murmur Abdomen- normal bowel sounds, soft, nontender Extremities- no calf tenderness, +dry scaly skin, +edema Neuro- alert, oriented x 3; PERRL, EOMI; no facial palsy; no dysarthria Skin- warm & dry Discharge Data Allergies Allergy/AdvReac Type Severity Reaction Status Date / Time Cephalosporins Allergy Unknown Unknown Verified 06/02/21 17:15 Cipro Allergy Unknown RASH Verified 06/10/16 18:14 ciprofloxacin Allergy Unknown RASH Verified 06/02/21 17:15 clindamycin Allergy Unknown RASH Verified 06/02/21 17:15 erythromycin base Allergy Unknown Unknown Verified 06/02/21 17:15 metformin Allergy Unknown EDEMA FACE Unverified 06/02/21 17:15 AND HANDS, ITCHY Penicillins Allergy Unknown Unknown Verified 06/02/21 17:15 Sulfa (Sulfonamide Allergy Unknown . Verified 06/02/21 17:15 Antibiotics) Consultations 06/02/21 16:24 ED Decision to Admit Stat 06/02/21 19:27 ED Decision to Admit Stat 06/03/21 14:27 Consult Infectious Diseases Routine 06/05/21 07:27 Consult Gastroenterology Routine Procedures Performed Operation Date: 06/06/21 15:30 Actual Procedures p EGD Biopsy Cytology - Maddison Patel MD s Colonoscopy Polypectomy - Maddison Patel MD Ordered Studies 06/02/21 17:36 CT abd pelvis wo con Stat XR chest 1V portable CLINICAL HISTORY: SOB. COMPARISON STUDY: 06/05/2021 TECHNIQUE: 1 view of the chest FINDINGS: Single frontal view of the chest demonstrates the heart size to again be enlarged. There is a decreased inspiratory effort with elevation of the hemidiaphragms and crowding of the bronchovascular markings at the lung bases and centrally. There is minimal bibasilar atelectasis. The remainder of the lungs are clear of alveolar opacities. There is no evidence for pleural effusion. There is no evidence for vascular congestion. There is no acute osseous pathology. IMPRESSION: Decreased inspiration with linear bibasilar atelectasis. ACT 112: Negative or not required by law. Electronically signed by: Juancarlos Tavera M.D. 06/09/2021 12:57 PM Dictated:06/09/21 1253 Transcribed: 06/09/21 1253 XR chest 1V portable CLINICAL HISTORY: wheeze COMPARISON STUDY: Chest CT July 30, 2018. Chest radiograph June 02, 2021. FINDINGS: Patient is rotated. No pneumothorax or pleural effusion is noted. There are mild bibasilar opacities. Cardiomegaly is present. Mild interstitial thickening is noted with Shruti B-lines. IMPRESSION: 1. Cardiomegaly. Mild interstitial thickening with Shruti B lines. This may indicate interstitial pulmonary edema. 2. Mild bibasilar opacities which may reflect atelectasis or an infectious process. ACT 112: Negative or not required by law. Electronically signed by: Keagan Morrow M.D. 06/05/2021 6:49 AM Dictated:06/05/21 0647 Transcribed: 06/05/21646 CT abd pelvis wo con CLINICAL HISTORY: abdominal pain, nausea, sepsis COMPARISON STUDY: No previous studies for comparison. CT DOSE: 1450.15 mGy.cm TECHNIQUE: Standard CT of the Abdomen and Pelvis was performed without IV contrast. The patient did not receive oral contrast. A dose lowering technique was utilized adhering to the principles of ALARA. FINDINGS: Lung base: The lung bases are clear. There is elevation of the right hemidiaphragm with crowding the bronchovascular markings at the right lung base. The heart is mildly enlarged with valvular calcification present. Abdominal cavity: There is no evidence for abdominal mass, adenopathy or ascites. Liver: The liver is homogeneous in attenuation on these limited noncontrast images.. Spleen: The spleen is homogeneous in attenuation on these limited noncontrast images. Pancreas: The pancreas is homogeneous in attenuation on these limited noncontrast images. Gall Bladder: The gallbladder is well distended with no evidence for cholelithiasis, wall thickening or pericholecystic edema.. Adrenal glands: The adrenal glands are normal in size and attenuation on these limited noncontrast images. Kidneys: The kidneys are homogeneous in attenuation on these limited noncontrast images. There is no evidence for gross renal mass, calculus or hydronephrosis bilaterally. Bowel: The bowel loops are normally placed within the abdomen and pelvis without evidence for dilatation or obstruction. There is no evidence for mass lesion. There are no inflammatory changes present. There is no evidence for free air. There is a normal appendix in the right lower quadrant. Bladder: Fontana catheter is present within the bladder. : There is no evidence for pelvic mass or adenopathy. The patient is status post hysterectomy. Vasculature: There is no evidence for focal aneurysmal dilatation of the abdominal aorta. Atherosclerotic calcification is present. Osseous structures: There is no acute osseous pathology. Degenerative changes are seen within the spine. IMPRESSION: 1. No acute intra-abdominal or pelvic abnormality on these limited noncontrast images. 2. Nonacute findings are delineated above. ACT 112: Negative or not required by law. Electronically signed by: Juancarlos Tavera M.D. 06/02/2021 7:11 PM Dictated:06/02/211907 Transcribed: 06/02/211907 XR chest 1V portable CLINICAL HISTORY: SEPSIS. Evaluate cardiopulmonary status COMPARISON STUDY: 04/04/2019 TECHNIQUE: 1 view of the chest FINDINGS: Single frontal view of the chest demonstrates the heart size to again be mildly enlarged. There is a decreased inspiratory effort with elevation of the hemidiaphragms and crowding of the bronchovascular markings at the lung bases and centrally. There is minimal right basilar atelectasis. The lungs are clear of alveolar opacities. There is no evidence for pleural effusion. There is no evidence for vascular congestion. There is no acute osseous pathology. IMPRESSION: Decreased inspiratory effort with minimal atelectasis at the right lung base. No confluent alveolar opacities. ACT 112: Negative or not required by law. Electronically signed by: Juancarlos Tavera M.D. 06/02/2021 2:10 PM Dictated:06/02/219 Transcribed: 06/02/211408 Hospital Course (1) Sepsis: Present on admission with generalized weakness and nausea Secondary to extensive bilateral leg wounds with cellulitis Met sepsis criteria on admission with elevated heart rate, WBC, lactate 2.3 and febrile Completed 14 days course of antibiotic Clinically improved (2) Venous stasis ulcers of both lower extremities: Sepsis Lactic acidosis Venous stasis ulcers of both lower extremities Source:bilateral lower extremity cellulitis given scattered open wounds noted on both legs UA does not suggest UTI, no signs of pneumonia on CXR Cultures negative to date Urine culture mixed probable skin dez CT abdomen showed no acute intra abdominal or pelvic abnormality. IV Zosyn, daptomycin transition to IV daptomycin--completed 7-day course Appreciate ID input recommended a total 2 week course of Abx) Patient completed 7-day course of daptomycin and Zosyn, as well as 7-day course of linezolid Continue daily wound care and keep legs moisturize Clinically stable (3) SON (acute kidney injury): Creatinine noted to be increased to 1.3 from baseline of 0.9 Lasix, Aldactone and lisinopril held Received IVF Creatinine stable at 1.1 Lasix and spironolactone resumed Will resume lisinopril in a.m, but will decrease it to 5mg Continue monitor BMP Diarrhea Likely secondary to antibiotics Stool for C. difficile negative Diarrhea resolved Nausea resolved Normocytic Anemia Positive fecal occult in setting of Coumadin use Hemoglobin drop partly dilutional S/P EGD: Gastritis, multiple polyps in the stomach suggestive of fundic gland polyposis biopsy taken. S/P Colonoscopy: Hemorrhoids, perianal erythema, skin tag that appeared to be oozing slightly. Multiple sigmoid diverticula. Sigmoid and transverse/ascending colon polyps removed. 15 mm granular LST in ascending co shawna. Nonbleeding AVM in the ascending colon ablated. --Received vitamin K Appreciate GI input Hg stable at 9.8 monitor closely (4) Hypomagnesemia: Magnesium chloride 3 times daily Protonix discontinued, replaced with famotidine Magnesium 1.6, replaced Continue Mg supplement (5) Chronic atrial fibrillation: (6) Tachycardia-bradycardia syndrome: -S/p previous pacemaker that had to be removed due to infection -Rate controlled on metoprolol INR 3.8 today Will hold coumadin today Will check INR tomorrow (7) DM type 2 (diabetes mellitus, type 2): -Hgb A1c 7.0 09/2020 -Lantus and NovoLog per protocol while hospitalized (8) Diastolic CHF: On the dry side Continue Lasix and Aldactone Continue monitor BMP (9) COPD (chronic obstructive pulmonary disease): At baseline O2 by nasal cannula (10) Hypoxemic respiratory failure, chronic: -Saturating well on chronic 2 L of oxygen -No signs of acute exacerbation, continue home inhalers (11) DVT prophylaxis: -INR 3.8 Will hold today Coumadin CODE STATUS Full code Disposition Discharge today to rehab Total Time Total Time Spent Total Time Spent (In Minutes): 35 minutes Discharge Plan Discharge Items Patient Disposition: Transfer Long Term Fac Reason For Visit: SEPSIS Discharge Diagnosis: Sepsis: Venous stasis ulcers of both lower extremities: SON (acute kidney injury): Diarrhea Normocytic Anemia Hypomagnesemia: Chronic atrial fibrillation: Tachycardia-bradycardia syndrome: DM type 2 (diabetes mellitus, type 2): Diastolic CHF: COPD (chronic obstructive pulmonary disease): Hypoxemic respiratory failure, chronic Activity: Resume your previous activity Non-emergency contact: Primary Care Provider Call non-emergency contact if: you have any medication questions Follow-up/Referrals: Jimi Sanchez DO [Primary Care Provider] - Diet: Carb Consistent or DM2 Addtl Attending Provider Instructions: Follow up with your primary care provider once discharge from the [facility] Follow up with the coumadin clinic Please hold coumadin today and check INR tomorrow ( coumadin clinic or your provider will dose the coumadin accordingly) Continue physical and occupational therapy Continue daily wound care by applying moisturize daily and as needed ( If wound reopen, follow up with the wound care clinci) Continue oxygen supplement with 2L nasal canula Check CBC and BMP and magnesium level in 1 week Fall precaution Lisinopril changed to 5mg daily Continue to monitor your blood pressure. If Blood pressure starts to elevate, your provider will increase lisinopril dose Pending Studies at Discharge: No Stand-Alone Forms: My [facility] Skilled Items Patient informed of condition?: Yes DNR: No Discharge Level of Care: Skilled Communicable Disease: No Discharge Prognosis: Stable Lines: None Urinary Catheter: No Medications and DC Order Prescriptions: New lisinopril 5 mg tablet 5 mg PO DAILY Qty: 30 RF: 0 Continued Combivent Respimat 20-100 mcg/actuation mist 1 puffs INH QID RF: 0 Novolog U-100 Insulin aspart 100 unit/mL solution 10 units SQ TIDM RF: 0 simvastatin 20 mg Tablet 20 mg PO HS RF: 0 omeprazole 20 mg Capsule,Delayed Release(Dr/Ec) 20 mg PO HS RF: 0 Lantus Solostar U-100 Insulin 100 unit/mL (3 mL) insulin pen 15 units SUBCUT HS RF: 0 ferrous sulfate [iron] 325 mg (65 mg iron) Tablet 325 mg PO QAM RF: 0 fluticasone propion-salmeterol [Wixela Inhub] 250-50 mcg/dose blister with device 1 inh inhalation BID RF: 0 furosemide 40 mg tablet 60 mg PO DAILY RF: 0 acetaminophen [Tylenol] 325 mg Tablet 650 mg PO Q4 PRN (Reason: Pain) RF: 0 spironolactone 25 mg tablet 25 mg PO DAILY RF: 0 warfarin 2 mg tablet 1 mg PO SUTUTHSA RF: 0 metoprolol tartrate 50 mg tablet 50 mg PO BID RF: 0 albuterol sulfate 90 mcg/actuation Hfa Aerosol Inhaler 1 inh INHALATION Q4 PRN (Reason: Shortness Of Breath Or Wheezing) RF: 0 clotrimazole 1 % cream 1 applic TOPICAL .BID UD RF: 0 magnesium oxide 400 mg magnesium Tablet 400 mg PO DAILY RF: 0 warfarin 2 mg tablet 2 mg PO MOWEFR RF: 0 Discontinued lisinopril 40 mg Tablet 40 mg PO DAILY RF: 0 Discharge Orders: Discharge Order (Routine); Ordered 06/20/21 Ordered By: Nathan Martínez/Other Patient Handouts: Managing Type 2 Diabetes, Special Foot [facility] for Diabetes Admission Data Admit Date/Time: 06/02/21 16:40 Attending Provider: Nathan Blanco Admit Provider: Jose Bryant Primary Care Provider: Jimi Sanchez Other Providers: Jose Bryant ; Toi Bagley ; Gloria Narayan ; Asad Woodson I. ; Manuel Cartagena II ; Oneida Francis ; Blair Fofana ; Abhilash Reynoso ; [facility] ; [facility] ; Kota Jarvis ; Vanessa Lazo ; Alysha Arenas ; Brook Reilly ; Ramesh Chirinos ; Vivian Wong ; Maddison Patel ; Doug Hinkle ; Camelia Harvey ; Janae Aguiar ; Saray Gan ; Emilee Sierra ; No Alonzo ; Tino Méndez ; [facility] ; Froylan Parikh Other Interventions: Discharge Summary Assessment (RN) Last Done: 06/20/21 12:49
== END 2021-06-20 13:30 | DRG 872 ==
LOC: ED 13:14 → EDINP 16:40 → SUATTDRO 16:40 → EDINP 20:41 → 2N 21:26

== ENCOUNTER 2021-07-17 17:54 | Inpatient (IN) ==
--- NOTE | 2021-07-17 18:32 | Emergency Department Note ---
History of Present Illness General Chief complaint: Diarrhea Stated complaint: ILLNESS, DIARRHEA, NAUSEA, WEAKNESS, HYPOXIA Time Seen by Provider: 07/17/21 18:19 Source: patient History of Present Illness Provider complaint: Diarrhea Onset (ago): day(s) 3 Location: abdomen Pain Consistency: + intermittent Quality: + other (Loose and watery.) Relieved By: + none Associated symptoms: + nausea/vomiting (Nausea without vomiting), + shortness of breath (Chronic) and + weakness; no chest pain, no cough, no fever/chills or no headaches This is a 80-year-old female who presents with symptoms for the past 3 days. She has had generalized weakness, copious diarrhea and nausea. She states that she has a history of dealing with diarrhea but it has been much worse over the past 3 days. She is going multiple times a day. It is watery without blood. She was on antibiotics last month for cellulitis to her legs. She states that her legs generally improved after treatment but she has noticed some slight increased redness. She denies any fever or chills. She has had nausea without vomiting. She denies any chest discomfort or pain. She does have chronic shortness of breath. She has no cough or cold symptoms. She denies any abdominal pain other than some mild cramping when she has diarrhea. She is urinating normally. She states that she has been able to take care of herself for the past 3 days and she lives alone. Home Medications Medication Instructions Recorded Confirmed Type omeprazole 20 mg capsule,delayed 20 mg PO HS 05/08/18 07/17/21 History release simvastatin 20 mg tablet 20 mg PO HS 05/08/18 07/17/21 History ferrous sulfate 325 mg (65 mg 325 mg PO QAM 07/30/18 07/17/21 History iron) tablet (iron) insulin aspart U-100 100 unit/mL 10 units SQ TIDM ml 10/03/18 07/17/21 History subcutaneous solution (Novolog U-100 Insulin aspart) insulin glargine 100 unit/mL (3 15 units SUBCUT HS ml 10/03/18 07/17/21 History mL) subcutaneous pen (Lantus Solostar U-100 Insulin) ipratropium 20 mcg-albuterol 100 1 puffs INH QID 10/03/18 07/17/21 History mcg/actuation mist for inhalation (Combivent Respimat) fluticasone 250 mcg-salmeterol 50 1 inh INHALATION BID 03/28/19 07/17/21 History mcg/dose blistr powdr for inhalation (Wixela Inhub) acetaminophen 325 mg tablet 650 mg PO Q4 PRN 06/02/21 07/17/21 History (Tylenol) albuterol sulfate 90 mcg/actuation 1 inh INHALATION Q4 PRN 06/02/21 07/17/21 History aerosol inhaler clotrimazole 1 % topical cream 1 applic TOPICAL BID 06/02/21 07/17/21 History furosemide 40 mg tablet 60 mg PO DAILY 06/02/21 07/17/21 History magnesium oxide 400 mg PO DAILY 06/02/21 07/17/21 History metoprolol tartrate 50 mg tablet 50 mg PO BID 06/02/21 07/17/21 History warfarin 2 mg tablet 2 mg PO MOWEFR 06/02/21 07/17/21 History lisinopril 5 mg tablet 5 mg PO DAILY #30 tab 06/20/21 07/17/21 Rx calcium carbonate 500 mg-vitamin 1 tab PO DAILY 07/17/21 07/17/21 History D3 5 mcg (200 unit) tablet (Calcium 500 + D) spironolactone 50 mg tablet 50 mg PO DAILY 07/17/21 07/17/21 History warfarin 2 mg tablet 1 mg PO SUTUTHSA 07/17/21 07/17/21 History Allergies Allergy/AdvReac Type Severity Reaction Status Date / Time metformin Allergy Severe EDEMA FACE Verified 07/17/21 18:41 AND HANDS, ITCHY ciprofloxacin Allergy Intermediate RASH Verified 07/17/21 18:41 clindamycin Allergy Intermediate RASH Verified 07/17/21 18:41 pollen extracts Allergy Mild RUNNY NOSE Verified 07/17/21 18:41 Cephalosporins Allergy Unknown Unknown Verified 07/17/21 18:41 montelukast [From Singulair] Allergy Unknown CAN'T Verified 07/17/21 18:41 REMEMBER Penicillins Allergy Unknown CAN'T Verified 07/17/21 18:41 REMEMBER Sulfa (Sulfonamide Allergy Unknown CAN'T Verified 07/17/21 18:41 Antibiotics) REMEMBER Past Med/Surg History Medical History A-fib SON (acute kidney injury) Cellulitis COPD (chronic obstructive pulmonary disease) Diastolic CHF DM type 2 (diabetes mellitus, type 2) Dyslipidemia Hypoxemic respiratory failure, chronic Nocturnal hypoxemia Obesity hypoventilation syndrome Osteoarthritis Pacemaker infection s/p removal Sepsis Staphylococcus aureus bacteremia Tachycardia-bradycardia syndrome Type 2 diabetes mellitus Surgical History History of cataract surgery History of hysterectomy History of total left knee replacement S/P adenoidectomy Family History Mother Diabetes Heart disease Social History Smoking Status: Former smoker Tobacco Type: Cigarettes Second Hand Exposure: Yes; Hx Alcohol Use: Yes Alcohol type: beer and hard liquor Hx Substance Use: No Preferred Language: Romanian Communication Ability: Effective Visual Impairment: No Limitations Hearing Ability: Normal [place] Required: No Beliefs That Will Affect Care: None marital status: Single Current Living Situation: Alone Current Living Situation Comment: Lives alone, son + granddaughter live nearby current occupational status: retired How many Children do You have: 1 Feels Safe at Home: Yes Assistive Devices: Oxygen - Continuous and Walker Review of Systems See HPI for pertinent positives & negatives. and A total of 10 systems reviewed and were otherwise negative Physical Exam Vital Signs Vital Signs - 24 hr 07/17/21 18:16 07/17/21 19:45 07/17/21 20:15 Temperature 36.6 C Temperature Source Oral Pulse Rate 101 H Pulse Rate [Apical] 96 H Respiratory Rate 22 25 H Respiratory Effort / Characteristics Non-Labored Respiratory Depth Normal Blood Pressure 104/76 Blood Pressure [Left Arm] 123/90 Blood Pressure Mean 85 Blood Pressure Mean [Left Arm] 101 Pulse Oximetry 94 94 93 Oxygen Delivery Method Room Air Room Air Room Air Sepsis Recent Fever Within 48 Hours No Sepsis New/Unexplained Change in Mental Status No Sepsis Action Taken by Nursing Physician Notified 07/17/21 22:00 Temperature Temperature Source Pulse Rate Pulse Rate [Apical] 93 H Respiratory Rate 19 Respiratory Effort / Characteristics Respiratory Depth Blood Pressure Blood Pressure [Left Arm] 107/50 L Blood Pressure Mean Blood Pressure Mean [Left Arm] 69 Pulse Oximetry 94 Oxygen Delivery Method Room Air Sepsis Recent Fever Within 48 Hours Sepsis New/Unexplained Change in Mental Status Sepsis Action Taken by Nursing Constitutional: Vital signs reviewed. Eyes: Pupils are equal round reactive to light. Conjunctiva are noninjected. ENT: Pharynx is clear without erythema or exudate. Mucous membranes are moist. Neck supple without meningeal signs. Respiratory: Clear to auscultation bilaterally. Breath sounds are equal bilaterally. Cardiovascular: Irregularly irregular rhythm. Mild tachycardia heart rate of 110. GI: Soft, nondistended and nontender. Bowel sounds are present. Musculoskeletal: Diffuse edema to both legs. There are multiple skin lesions on both legs. There is diffuse erythema with some slight increased warmth. No drainage is noted. Integumentary: No cyanosis. or jaundice. Neurological: The patient is awake and alert. No focal deficits. Psychiatric: Normal affect. Not anxious appearing. Course Administered Medications Magnesium Sulfate/Dextrose (Magnesium Sulfate / D5w) 1 gm in 100 mls @ 50 mls/hr IV Q2H ERIC Stop: 07/18/21 06:59 Last Admin: 07/17/21 21:59 Dose: 50 mls/hr Documented by: [id number] Discontinued Medications Dextrose (Dextrose 50% 50 Ml Syringe) 30 ml IV NOW ONE Stop: 07/17/21 20:05 Last Admin: 07/17/21 20:36 Dose: 30 ml Documented by: [id number] Sodium Chloride (Nss 1000ml) 250 mls @ 100 mls/hr IV .Q2H30M ONE Stop: 07/17/21 22:22 Last Admin: 07/17/21 20:27 Dose: 100 mls/hr Documented by: [id number] Insulin Human Regular (Novolin-R Insulin Per Unit Charge) 5 units IV NOW STA Stop: 07/17/21 20:05 Last Admin: 07/17/21 20:35 Dose: 5 units Documented by: [id number] Cosigned by: [id number] Phytonadione (Phytonadione 5 Mg Tab) 2.5 mg PO NOW STA Stop: 07/17/21 21:11 Last Admin: 07/17/21 21:58 Dose: 2.5 mg Documented by: [id number] Sodium Bicarbonate (Sodium Bicarb 8.4% Inj 50 Meq/50 Ml Syr) 50 meq IV NOW STA Stop: 07/17/21 20:08 Last Admin: 07/17/21 20:37 Dose: 50 meq Documented by: [id number] Critical Care Time Critical Care Time: Yes Total Critical Care Time: 35 I have personally spent approximately 35 minutes of critical care time in the direct management of this patient. This includes bedside care, interpretation of diagnostic studies, and testing, discussion with consultants, patient, and family members, and other required patient management activities. These minutes are in excess of all separately billable procedures. Medical Decision Making Differential Diagnosis Pneumonia, UTI, cellulitis, dehydration, C. difficile colitis, metabolic derangement Medical Records Attestation: I reviewed the patient's medical records. I did perform a limited focused review of portions of the patient's old chart on the electronic medical record. The patient was admitted last month for sepsis due to cellulitis of both legs. She did have abdominal discomfort and diarrhea at that time. She had an unremarkable CT of the abdomen pelvis and tested negative for C. difficile. She was found to have an elevated creatinine of 1.4 and also was anemic. Home Medications Current Medication List: was personally reviewed by me Laboratory Data Attestation: I reviewed the patient's lab results. Result diagrams: 07/17/21 17:26 07/17/21 21:48 Lab Results 07/17/21 07/17/21 07/17/21 Range/Units 17:26 17:26 18:07 WBC 11.94 H (4.8-10.8) K/uL RBC 4.12 L (4.2-5.4) M/uL Hgb 10.9 L (12.0-16.0) g/dL Hct 34.9 L (37-47) % MCV 84.7 (80-100) fL MCH 26.5 (25-34) pg MCHC 31.2 L (32-36) g/dL RDW Std Deviation 59.3 H (36.4-46.3) fL RDW Coeff of Silvana 19.0 H (11.5-14.5) % Plt Count 221 (130-400) K/uL MPV 11.6 H (7.4-10.4) fL Immature Gran % (Auto) 0.3 % Neut % (Auto) 79.3 % Lymph % (Auto) 12.8 % [place] % (Auto) 6.0 % Eos % (Auto) 1.3 % Baso % (Auto) 0.3 % Neut # (Auto) 9.46 H (1.4-6.5) K/uL Lymph # (Auto) 1.53 (1.2-3.4) K/uL [place] # (Auto) 0.72 H (0.11-0.59) K/uL Eos # (Auto) 0.16 (0-0.5) K/uL Baso # (Auto) 0.03 (0-0.2) K/uL Immature Gran # (Auto) 0.04 H (0.00-0.02) K/uL PT (9.0-12.0) Seconds INR (0.9-1.1) APTT (21.0-31.0) Seconds PTT Ratio Sodium 137 (136-145) mmol/L Potassium 5.3 H (3.5-5.1) mmol/L Chloride 106 (98-107) mmol/L Carbon Dioxide 18 L (21-32) mmol/L Anion Gap 13 H (3-11) BUN 78 H (6-23) mg/dl Creatinine 2.44 H (0.6-1.2) mg/dl Est Cr Clr Drug Dosing 19.2 ml/min Est GFR ( Amer) 21.1 ml/min Est GFR (Non-Af Amer) 18.2 ml/min BUN/Creatinine Ratio 32.0 H (10-20) Glucose 119 H (70-99(Fasting)) mg/dl POC Glucose 120 H (70-99) mg/dl Lactate (0.4-2.0) mmol/L Calcium 6.4 L (8.5-10.1) mg/dl Magnesium (1.7-2.4) mg/dl Total Bilirubin 0.6 (0.2-1.0) mg/dl AST 20 (13-39) U/L ALT 8 (7-52) U/L Alkaline Phosphatase 190 H (34-104) U/L Total Creatine Kinase (26-192) U/L Troponin I 0.03 (0-0.04) ng/ml Total Protein 8.3 (6.0-8.3) gm/dl Albumin 3.8 (3.4-5.0) gm/dl Globulin 4.5 H (2.5-4.0) gm/dl Albumin/Globulin Ratio 0.8 L (0.9-2) TSH (0.300-4.500) uIu/ml Urine Color Urine Appearance (Clear) Urine pH (4.5-7.5) Ur Specific [place] (1.000-1.030) Urine Protein (Negative) Urine Glucose (UA) (Negative) Urine Ketones (Negative) Urine Blood (Negative) Urine Nitrite (Negative) Urine Bilirubin (Negative) Urine Urobilinogen (Negative) Ur Leukocyte Esterase (Negative) Urine WBC (Auto) (0-5) /hpf Urine RBC (Auto) (0-4) /hpf U Hyaline Cast (Auto) (0-5) /lpf U Epithel Cells (Auto) (0-5) /lpf Urine Bacteria (Auto) (Negative) Urine Yeast Stl C. cayetanensis PCR (NotDetected) Stool Rotavirus A PCR (NotDetected) Stl Adenov F 40 PCR (NotDetected) Stool Astrovirus (PCR) (NotDetected) Stool Campylobacter PCR (NotDetected) Stl C. diff Tox A/B PCR (NotDetected) Stool Cryptosporidium PCR (NotDetected) Stl E.coli Shiga Tox PCR (NotDetected) Stl Enterotoxigenic E PCR (NotDetected) Stool EPEC (PCR) (NotDetected) Stool EAEC (PCR) (NotDetected) Stl E. histolytica PCR (NotDetected) Stool Giardia Lamblia PCR (NotDetected) Stool Salmonella PCR (NotDetected) Stool Sapovirus (PCR) (NotDetected) Stl P. shigelloides PCR (NotDetected) Stl Shigella/EIEC PCR (NotDetected) St Y.enterocolitica PCR (NotDetected) Stool Vibrio (PCR) (NotDetected) Stl Vibrio cholerae PCR (NotDetected) Stl Norovirus GI/GII PCR (NotDetected) SARS-CoV-2, RNA, NAAT (NEGATIVE) 07/17/21 07/17/21 07/17/21 Range/Units 19:11 19:42 20:07 WBC (4.8-10.8) K/uL RBC (4.2-5.4) M/uL Hgb (12.0-16.0) g/dL Hct (37-47) % MCV (80-100) fL MCH (25-34) pg MCHC (32-36) g/dL RDW Std Deviation (36.4-46.3) fL RDW Coeff of Silvana (11.5-14.5) % Plt Count (130-400) K/uL MPV (7.4-10.4) fL Immature Gran % (Auto) % Neut % (Auto) % Lymph % (Auto) % [place] % (Auto) % Eos % (Auto) % Baso % (Auto) % Neut # (Auto) (1.4-6.5) K/uL Lymph # (Auto) (1.2-3.4) K/uL [place] # (Auto) (0.11-0.59) K/uL Eos # (Auto) (0-0.5) K/uL Baso # (Auto) (0-0.2) K/uL Immature Gran # (Auto) (0.00-0.02) K/uL PT 68.1 H (9.0-12.0) Seconds INR 7.9 H* (0.9-1.1) APTT 63.3 H* (21.0-31.0) Seconds PTT Ratio 2.4 Sodium (136-145) mmol/L Potassium (3.5-5.1) mmol/L Chloride (98-107) mmol/L Carbon Dioxide (21-32) mmol/L Anion Gap (3-11) BUN (6-23) mg/dl Creatinine (0.6-1.2) mg/dl Est Cr Clr Drug Dosing ml/min Est GFR ( Amer) ml/min Est GFR (Non-Af Amer) ml/min BUN/Creatinine Ratio (10-20) Glucose (70-99(Fasting)) mg/dl POC Glucose (70-99) mg/dl Lactate (0.4-2.0) mmol/L Calcium (8.5-10.1) mg/dl Magnesium < 0.5 L* (1.7-2.4) mg/dl Total Bilirubin (0.2-1.0) mg/dl AST (13-39) U/L ALT (7-52) U/L Alkaline Phosphatase (34-104) U/L Total Creatine Kinase (26-192) U/L Troponin I (0-0.04) ng/ml Total Protein (6.0-8.3) gm/dl Albumin (3.4-5.0) gm/dl Globulin (2.5-4.0) gm/dl Albumin/Globulin Ratio (0.9-2) TSH (0.300-4.500) uIu/ml Urine Color Urine Appearance (Clear) Urine pH (4.5-7.5) Ur Specific [place] (1.000-1.030) Urine Protein (Negative) Urine Glucose (UA) (Negative) Urine Ketones (Negative) Urine Blood (Negative) Urine Nitrite (Negative) Urine Bilirubin (Negative) Urine Urobilinogen (Negative) Ur Leukocyte Esterase (Negative) Urine WBC (Auto) (0-5) /hpf Urine RBC (Auto) (0-4) /hpf U Hyaline Cast (Auto) (0-5) /lpf U Epithel Cells (Auto) (0-5) /lpf Urine Bacteria (Auto) (Negative) Urine Yeast Stl C. cayetanensis PCR Not Detected (NotDetected) Stool Rotavirus A PCR Not Detected (NotDetected) Stl Adenov F 40/41 PCR Not Detected (NotDetected) Stool Astrovirus (PCR) Not Detected (NotDetected) Stool Campylobacter PCR Not Detected (NotDetected) Stl C. diff Tox A/B PCR Not Detected (NotDetected) Stool Cryptosporidium PCR Not Detected (NotDetected) Stl E.coli Shiga Tox PCR Not Detected (NotDetected) Stl Enterotoxigenic E PCR Not Detected (NotDetected) Stool EPEC (PCR) Not Detected (NotDetected) Stool EAEC (PCR) Not Detected (NotDetected) Stl E. histolytica PCR Not Detected (NotDetected) Stool Giardia Lamblia PCR Not Detected (NotDetected) Stool Salmonella PCR Not Detected (NotDetected) Stool Sapovirus (PCR) Not Detected (NotDetected) Stl P. shigelloides PCR Not Detected (NotDetected) Stl Shigella/EIEC PCR Not Detected (NotDetected) St Y.enterocolitica PCR Not Detected (NotDetected) Stool Vibrio (PCR) Not Detected (NotDetected) Stl Vibrio cholerae PCR Not Detected (NotDetected) Stl Norovirus GI/GII PCR Not Detected (NotDetected) SARS-CoV-2, RNA, NAAT (NEGATIVE) 07/17/21 07/17/21 07/17/21 Range/Units 20:07 20:20 20:20 WBC (4.8-10.8) K/uL RBC (4.2-5.4) M/uL Hgb (12.0-16.0) g/dL Hct (37-47) % MCV (80-100) fL MCH (25-34) pg MCHC (32-36) g/dL RDW Std Deviation (36.4-46.3) fL RDW Coeff of Silvana (11.5-14.5) % Plt Count (130-400) K/uL MPV (7.4-10.4) fL Immature Gran % (Auto) % Neut % (Auto) % Lymph % (Auto) % [place] % (Auto) % Eos % (Auto) % Baso % (Auto) % Neut # (Auto) (1.4-6.5) K/uL Lymph # (Auto) (1.2-3.4) K/uL [place] # (Auto) (0.11-0.59) K/uL Eos # (Auto) (0-0.5) K/uL Baso # (Auto) (0-0.2) K/uL Immature Gran # (Auto) (0.00-0.02) K/uL PT (9.0-12.0) Seconds INR (0.9-1.1) APTT (21.0-31.0) Seconds PTT Ratio Sodium (136-145) mmol/L Potassium (3.5-5.1) mmol/L Chloride (98-107) mmol/L Carbon Dioxide (21-32) mmol/L Anion Gap (3-11) BUN (6-23) mg/dl Creatinine (0.6-1.2) mg/dl Est Cr Clr Drug Dosing ml/min Est GFR ( Amer) ml/min Est GFR (Non-Af Amer) ml/min BUN/Creatinine Ratio (10-20) Glucose (70-99(Fasting)) mg/dl POC Glucose (70-99) mg/dl Lactate (0.4-2.0) mmol/L Calcium (8.5-10.1) mg/dl Magnesium (1.7-2.4) mg/dl Total Bilirubin (0.2-1.0) mg/dl AST (13-39) U/L ALT (7-52) U/L Alkaline Phosphatase (34-104) U/L Total Creatine Kinase (26-192) U/L Troponin I (0-0.04) ng/ml Total Protein (6.0-8.3) gm/dl Albumin (3.4-5.0) gm/dl Globulin (2.5-4.0) gm/dl Albumin/Globulin Ratio (0.9-2) TSH 1.562 (0.300-4.500) uIu/ml Urine Color Yellow Urine Appearance Cloudy A (Clear) Urine pH 5.0 (4.5-7.5) Ur Specific [place] 1.010 (1.000-1.030) Urine Protein Negative (Negative) Urine Glucose (UA) Negative (Negative) Urine Ketones Negative (Negative) Urine Blood 1+ H (Negative) Urine Nitrite Negative (Negative) Urine Bilirubin Negative (Negative) Urine Urobilinogen Negative (Negative) Ur Leukocyte Esterase 2+ H (Negative) Urine WBC (Auto) 5-10 H (0-5) /hpf Urine RBC (Auto) 0-4 (0-4) /hpf U Hyaline Cast (Auto) 1-5 (0-5) /lpf U Epithel Cells (Auto) >30 H (0-5) /lpf Urine Bacteria (Auto) Negative (Negative) Urine Yeast Not Reportable Stl C. cayetanensis PCR (NotDetected) Stool Rotavirus A PCR (NotDetected) Stl Adenov F 40/41 PCR (NotDetected) Stool Astrovirus (PCR) (NotDetected) Stool Campylobacter PCR (NotDetected) Stl C. diff Tox A/B PCR (NotDetected) Stool Cryptosporidium PCR (NotDetected) Stl E.coli Shiga Tox PCR (NotDetected) Stl Enterotoxigenic E PCR (NotDetected) Stool EPEC (PCR) (NotDetected) Stool EAEC (PCR) (NotDetected) Stl E. histolytica PCR (NotDetected) Stool Giardia Lamblia PCR (NotDetected) Stool Salmonella PCR (NotDetected) Stool Sapovirus (PCR) (NotDetected) Stl P. shigelloides PCR (NotDetected) Stl Shigella/EIEC PCR (NotDetected) St Y.enterocolitica PCR (NotDetected) Stool Vibrio (PCR) (NotDetected) Stl Vibrio cholerae PCR (NotDetected) Stl Norovirus GI/GII PCR (NotDetected) SARS-CoV-2, RNA, NAAT NEGATIVE (NEGATIVE) 07/17/21 07/17/21 Range/Units 21:48 21:48 WBC (4.8-10.8) K/uL RBC (4.2-5.4) M/uL Hgb (12.0-16.0) g/dL Hct (37-47) % MCV (80-100) fL MCH (25-34) pg MCHC (32-36) g/dL RDW Std Deviation (36.4-46.3) fL RDW Coeff of Silvana (11.5-14.5) % Plt Count (130-400) K/uL MPV (7.4-10.4) fL Immature Gran % (Auto) % Neut % (Auto) % Lymph % (Auto) % [place] % (Auto) % Eos % (Auto) % Baso % (Auto) % Neut # (Auto) (1.4-6.5) K/uL Lymph # (Auto) (1.2-3.4) K/uL [place] # (Auto) (0.11-0.59) K/uL Eos # (Auto) (0-0.5) K/uL Baso # (Auto) (0-0.2) K/uL Immature Gran # (Auto) (0.00-0.02) K/uL PT (9.0-12.0) Seconds INR (0.9-1.1) APTT (21.0-31.0) Seconds PTT Ratio Sodium 141 (136-145) mmol/L Potassium 4.4 (3.5-5.1) mmol/L Chloride 110 H (98-107) mmol/L Carbon Dioxide 21 (21-32) mmol/L Anion Gap 10 (3-11) BUN 78 H (6-23) mg/dl Creatinine 2.22 H (0.6-1.2) mg/dl Est Cr Clr Drug Dosing 21.1 ml/min Est GFR ( Amer) 23.7 ml/min Est GFR (Non-Af Amer) 20.4 ml/min BUN/Creatinine Ratio 35.1 H (10-20) Glucose 56 L (70-99(Fasting)) mg/dl POC Glucose (70-99) mg/dl Lactate 1.5 (0.4-2.0) mmol/L Calcium 5.9 L* (8.5-10.1) mg/dl Magnesium (1.7-2.4) mg/dl Total Bilirubin (0.2-1.0) mg/dl AST (13-39) U/L ALT (7-52) U/L Alkaline Phosphatase (34-104) U/L Total Creatine Kinase 138 (26-192) U/L Troponin I (0-0.04) ng/ml Total Protein (6.0-8.3) gm/dl Albumin (3.4-5.0) gm/dl Globulin (2.5-4.0) gm/dl Albumin/Globulin Ratio (0.9-2) TSH (0.300-4.500) uIu/ml Urine Color Urine Appearance (Clear) Urine pH (4.5-7.5) Ur Specific [place] (1.000-1.030) Urine Protein (Negative) Urine Glucose (UA) (Negative) Urine Ketones (Negative) Urine Blood (Negative) Urine Nitrite (Negative) Urine Bilirubin (Negative) Urine Urobilinogen (Negative) Ur Leukocyte Esterase (Negative) Urine WBC (Auto) (0-5) /hpf Urine RBC (Auto) (0-4) /hpf U Hyaline Cast (Auto) (0-5) /lpf U Epithel Cells (Auto) (0-5) /lpf Urine Bacteria (Auto) (Negative) Urine Yeast Stl C. cayetanensis PCR (NotDetected) Stool Rotavirus A PCR (NotDetected) Stl Adenov F 40/41 PCR (NotDetected) Stool Astrovirus (PCR) (NotDetected) Stool Campylobacter PCR (NotDetected) Stl C. diff Tox A/B PCR (NotDetected) Stool Cryptosporidium PCR (NotDetected) Stl E.coli Shiga Tox PCR (NotDetected) Stl Enterotoxigenic E PCR (NotDetected) Stool EPEC (PCR) (NotDetected) Stool EAEC (PCR) (NotDetected) Stl E. histolytica PCR (NotDetected) Stool Giardia Lamblia PCR (NotDetected) Stool Salmonella PCR (NotDetected) Stool Sapovirus (PCR) (NotDetected) Stl P. shigelloides PCR (NotDetected) Stl Shigella/EIEC PCR (NotDetected) St Y.enterocolitica PCR (NotDetected) Stool Vibrio (PCR) (NotDetected) Stl Vibrio cholerae PCR (NotDetected) Stl Norovirus GI/GII PCR (NotDetected) SARS-CoV-2, RNA, NAAT (NEGATIVE) Imaging Data Radiologist's Impression: Chest X-Ray 07/17/21 18:26 XR chest 1V portable CLINICAL HISTORY: weak COMPARISON STUDY: Chest radiograph June 09, 2021. FINDINGS: Lung volumes are normal. Lungs are clear. Lower lung airspace opacities have resolved. There is no pneumothorax or pleural effusion. Cardiomegaly is unchanged. Mediastinal contours are normal. There is no evidence for pulmonary edema. IMPRESSION: No acute cardiopulmonary findings. Cardiomegaly. ACT 112: Negative or not required by law. Electronically signed by: Keagan Morrow M.D. 07/17/2021 7:28 PM ECG Data Attestation: I personally reviewed and interpreted this ECG as follows: Indication: + tachycardia and + weakness Rate (beats per minute): 112 Rhythm: + atrial fibrillation ECG [place]: + Normal ECG ST segments: + Nonspecific ST abnormalities ECG Findings: no PVCs Comparison ECG Date: from (June 02/2022) Change: no significant change MDM Narrative I did evaluate the patient as noted above. The patient is presenting with generalized weakness and diarrhea for the past 3 days. IV access was established. I did place an order for continuous cardiac monitoring. The monitor showed atrial fibrillation at a rate of 105 bpm. I did order and personally review the patient's 12-lead EKG as described above. She has atrial fibrillation. I did order and personally reviewed the images of the patient's chest x-ray as described above. There is no evidence of pneumonia. I did order a urine analysis. She does not appear to have a UTI. I did order and review the patient's blood work as noted in the electronic medical record. CBC demonstrates a white count of 12. Hemoglobin is 10.9. Platelet count is 221. INR is supratherapeutic at 7.9. Electrolytes demonstrate a potassium of 5.3, and CO2 of 18 anion gap of 13. Her glucose is 120. Her BUN and creatinine are 78 and 2.44 respectively. Magnesium is very low. Troponin is negative. I did order stool tests and C. difficile which are currently pending. I did treat the patient with IV glucose and insulin for her hyperkalemia. She was also given IV fluids with normal saline. Due to her heart failure she was given very low volume slowly. I did discuss the case with the hospitalist and binder caser. I did discuss the test results with the patient. The patient was given IV magnesium as well. Covid screening test is negative. Impression & Plan SON (acute kidney injury), Hypomagnesemia, Acute hyperkalemia, Chronic anemia, Diarrhea, Supratherapeutic INR Discharge Plan Visit Data Chief Complaint: Diarrhea Stated Complaint: ILLNESS, DIARRHEA, NAUSEA, WEAKNESS, HYPOXIA ED Provider: Matheus Steiner Discharge Problem: SON (acute kidney injury), Hypomagnesemia, Acute hyperkalemia, Chronic anemia, Diarrhea, Supratherapeutic INR Patient Disposition: Being Evaluated by Hospitalist Forms Stand Alone Forms: My [facility] Prescriptions Prescriptions: No Action Combivent Respimat 20-100 mcg/actuation mist 1 puffs INH QID RF: 0 Novolog U-100 Insulin aspart 100 unit/mL solution 10 units SQ TIDM RF: 0 simvastatin 20 mg Tablet 20 mg PO HS RF: 0 omeprazole 20 mg Capsule,Delayed Release(Dr/Ec) 20 mg PO HS RF: 0 Lantus Solostar U-100 Insulin 100 unit/mL (3 mL) insulin pen 15 units SUBCUT HS RF: 0 ferrous sulfate [iron] 325 mg (65 mg iron) Tablet 325 mg PO QAM RF: 0 fluticasone propion-salmeterol [Wixela Inhub] 250-50 mcg/dose blister with de vice 1 inh inhalation BID RF: 0 furosemide 40 mg tablet 60 mg PO DAILY RF: 0 acetaminophen [Tylenol] 325 mg Tablet 650 mg PO Q4 PRN (Reason: Pain) RF: 0 metoprolol tartrate 50 mg tablet 50 mg PO BID RF: 0 albuterol sulfate 90 mcg/actuation Hfa Aerosol Inhaler 1 inh INHALATION Q4 PRN (Reason: Shortness Of Breath Or Wheezing) RF: 0 clotrimazole 1 % cream 1 applic TOPICAL BID RF: 0 magnesium oxide 400 mg magnesium Tablet 400 mg PO DAILY RF: 0 warfarin 2 mg tablet 2 mg PO MOWEFR RF: 0 lisinopril 5 mg tablet 5 mg PO DAILY Qty: 30 RF: 0 calcium carbonate-vitamin D3 [Calcium 500 + D] 500 mg-5 mcg (200 unit) Tablet 1 tab PO DAILY RF: 0 spironolactone 50 mg tablet 50 mg PO DAILY RF: 0 warfarin 2 mg Tablet 1 mg PO [facility] RF: 0 [facility] - Discharge Problem: Diarrhea Qualifiers: Diarrhea type: unspecified type Qualified Code(s): R19.7 - Diarrhea, unspecified
[2021-07-17 18:40] LABS: Basophils # (auto) 0.03 K/uL (0-0.2); Basophils % (auto) 0.3 %; Eosinophils # (auto) 0.16 K/uL (0-0.5); Eosinophils % (auto) 1.3 %; Hematocrit (blood only) 34.9 % (37-47); Hemoglobin 10.9 g/dL (12.0-16.0); Immature Granulocytes # (auto) 0.04 K/uL (0.00-0.02); Immature Granulocytes % (auto) 0.3 %; Lymphocytes # (auto) 1.53 K/uL (1.2-3.4); Lymphocytes % (auto) 12.8 %; Mean Corpuscular Hemoglobin 26.5 pg (25-34); Mean Corpuscular Hgb Conc 31.2 g/dL (32-36); Mean Corpuscular Volume 84.7 fL (80-100); Mean Platelet Volume 11.6 fL (7.4-10.4); Monocytes # (auto) 0.72 K/uL (0.11-0.59); Neutrophils # (auto) 9.46 K/uL (1.4-6.5); Neutrophils % (auto) 79.3 %; Platelet Count 221 K/uL (130-400); RDW Standard Deviation 59.3 fL (36.4-46.3); Red Blood Count 4.12 M/uL (4.2-5.4); White Blood Count 11.94 K/uL (4.8-10.8)
[2021-07-17 19:05] LABS: Troponin I 0.03 ng/ml (0-0.04)
--- NOTE | 2021-07-17 19:29 | XRay Report ---
XR chest 1V portable CLINICAL HISTORY: weak COMPARISON STUDY: Chest radiograph June 09, 2021. FINDINGS: Lung volumes are normal. Lungs are clear. Lower lung airspace opacities have resolved. Ther e is no pneumothorax or pleural effusion. Cardiomegaly is unchanged. Mediastinal contours are normal. There is no evidence for pulmonary edema. IMPRESSION: No acute cardiopulmonary findings. Cardiomegaly. ACT 112: Negative or not required by law. Electronically signed by: Keagan Morrow M.D. 07/17/2021 7:28 PM
[2021-07-17 19:34] LABS: Albumin Globulin Ratio 0.8 (0.9-2); Albumin Level 3.8 gm/dl (3.4-5.0); Bilirubin,Total 0.6 mg/dl (0.2-1.0); Calcium 6.4 mg/dl (8.5-10.1); Creatinine Clr Calc Pharmacy 19.2 ml/min; Est GFR (African American) 21.1 ml/min; Est GFR (Non-African American) 18.2 ml/min; Globulin 4.5 gm/dl (2.5-4.0); Potassium 5.3 mmol/L (3.5-5.1); Total Protein 8.3 gm/dl (6.0-8.3)
[2021-07-17 19:51] LABS: Partial Thromboplastin Ratio 2.4; Prothrombin Time 68.1 Seconds (9.0-12.0)
[2021-07-17] MEDS ORDERED: SODIUM CHLORIDE 0.9% 1000ML 250 ML IV ONE (19:53)
[2021-07-17] MEDS ORDERED: DEXTROSE 50% 50 ML SYRINGE IV ONE (20:04)
[2021-07-17] MEDS ORDERED: NovoLIN-R INSULIN PER UNIT CHARGE IV STA (20:04)
[2021-07-17] MEDS ORDERED: SODIUM BICARB 8.4% INJ 50 MEQ/50 ML SYR IV STA (20:07)
--- NOTE | 2021-07-17 20:09 | History & Physical Report ---
Date of Service July 17, 2021 Assessment & Plan (1) Diarrhea in adult patient: (2) Bilateral lower leg cellulitis: (3) Acute worsening of stage 3 chronic kidney disease: (4) Hyperkalemia: (5) Hypocalcemia: (6) Chronic atrial fibrillation: (7) DM type 2 (diabetes mellitus, type 2): (8) Diastolic CHF: (9) Nocturnal hypoxemia: Plan: This is a 80-year-old male who has significant past medical history of atrial fibrillation anticoagulated on warfarin, chronic HFpEF, HTN, HLD, TBS s/p PPM with pacer removal 6 weeks after insertion due to infection, COPD, chronic hypoxemic respiratory failure, T2DM, morbid obesity, CKD stage III who presents to ED secondary to diarrhea x6 days. [facility] diarrheal illness x6 days, acute on chronic CKD stage III with baseline creatinine of 1.1-1.3, bilateral lower extremity cellulitis, hyperkalemia, hypocalcemia, bilateral lower extremity leg wounds and sacral erythema and ambulatory dysfunction. Patient was seen in collaboration with Dr. Hudson. Please see his addendum for specific details regarding assessment and treatment plan. History of Present Illness Chief Complaint: Diarrhea x6 days. Primary Care Provider: Jimi Sanchez, This is a 80-year-old male who has significant past medical history of atrial fibrillation anticoagulated on warfarin, chronic HFpEF, HTN, HLD, TBS s/p PPM with pacer removal 6 weeks after insertion due to infection, COPD, chronic hypoxemic respiratory failure, T2DM, morbid obesity, CKD stage III who presents to ED secondary to diarrhea x6 days. She complains of a significant amount of diarrhea, nausea and generalized weakness. She has frequent stool throughout the day, described as watery. She denies any hematochezia or melena. She denies any fever, chills, sweats, lightheadedness, dizziness, chest pain, vomiting, abdominal pain. She does have chronic shortness of breath but feels this is unchanged. She denies any ruy abdominal pain except for mild cramping associate with diarrhea. It resolves after a bowel movement. She denies any change in urination. She lives alone at home. Over the last 3 days she has noted increased difficulty in ambulating through home. Even 50 feet is difficult for her. She does wear 2 L of oxygen at bedtime and occasionally throughout the day. She also has increased redness and wounds to her bilateral lower extremities. Granddaughter at bedside states that she refuses to go to [facility]. She was hospitalized approximately 1 month ago secondary to bilateral cellulitis. Granddaughter feels her legs are much worse. In ED patient remained hemodynamically stable. Lab work notable for mild leukocytosis 11.94, H&H 10.9 and 34.9, potassium 5.3, BUN 70, creatinine 2.44, calcium 6.4. She is a stool culture pending. Of significance patient was treated with a course of antibiotics for cellulitis to her legs approximately 1 month ago. In ED patient received IV fluid. Allergies Allergy/AdvReac Type Severity Reaction Status Date / Time metformin Allergy Severe EDEMA FACE Verified 07/17/21 18:41 AND HANDS, ITCHY ciprofloxacin Allergy Intermediate RASH Verified 07/17/21 18:41 clindamycin Allergy Intermediate RASH Verified 07/17/21 18:41 pollen extracts Allergy Mild RUNNY NOSE Verified 07/17/21 18:41 Cephalosporins Allergy Unknown Unknown Verified 07/17/21 18:41 montelukast [From Singulair] Allergy Unknown CAN'T Verified 07/17/21 18:41 REMEMBER Penicillins Allergy Unknown CAN'T Verified 07/17/21 18:41 REMEMBER Sulfa (Sulfonamide Allergy Unknown CAN'T Verified 07/17/21 18:41 Antibiotics) REMEMBER Home Medications Medication Instructions Recorded Confirmed Type omeprazole 20 mg capsule,delayed 20 mg PO HS 05/08/18 07/17/21 History release simvastatin 20 mg tablet 20 mg PO HS 05/08/18 07/17/21 History ferrous sulfate 325 mg (65 mg 325 mg PO QAM 07/30/18 07/17/21 History iron) tablet (iron) insulin aspart U-100 100 unit/mL 10 units SQ TIDM ml 10/03/18 07/17/21 History subcutaneous solution (Novolog U-100 Insulin aspart) insulin glargine 100 unit/mL (3 15 units SUBCUT HS ml 10/03/18 07/17/21 History mL) subcutaneous pen (Lantus Solostar U-100 Insulin) ipratropium 20 mcg-albuterol 100 1 puffs INH QID 10/03/18 07/17/21 History mcg/actuation mist for inhalation (Combivent Respimat) fluticasone 250 mcg-salmeterol 50 1 inh INHALATION BID 03/28/19 07/17/21 History mcg/dose blistr powdr for inhalation (Wixela Inhub) acetaminophen 325 mg tablet 650 mg PO Q4 PRN 06/02/21 07/17/21 History (Tylenol) albuterol sulfate 90 mcg/actuation 1 inh INHALATION Q4 PRN 06/02/21 07/17/21 History aerosol inhaler clotrimazole 1 % topical cream 1 applic TOPICAL BID 06/02/21 07/17/21 History furosemide 40 mg tablet 60 mg PO DAILY 06/02/21 07/17/21 History magnesium oxide 400 mg PO DAILY 06/02/21 07/17/21 History metoprolol tartrate 50 mg tablet 50 mg PO BID 06/02/21 07/17/21 History warfarin 2 mg tablet 2 mg PO MOWEFR 06/02/21 07/17/21 History lisinopril 5 mg tablet 5 mg PO DAILY #30 tab 06/20/21 07/17/21 Rx calcium carbonate 500 mg-vitamin 1 tab PO DAILY 07/17/21 07/17/21 History D3 5 mcg (200 unit) tablet (Calcium 500 + D) spironolactone 50 mg tablet 50 mg PO DAILY 07/17/21 07/17/21 History warfarin 2 mg tablet 1 mg PO SUTUTHSA 07/17/21 07/17/21 History Past Med/Surg History Medical History A-fib SON (acute kidney injury) Cellulitis COPD (chronic obstructive pulmonary disease) Diastolic CHF DM type 2 (diabetes mellitus, type 2) Dyslipidemia Hypoxemic respiratory failure, chronic Nocturnal hypoxemia Obesity hypoventilation syndrome Osteoarthritis Pacemaker infection s/p removal Sepsis Staphylococcus aureus bacteremia Tachycardia-bradycardia syndrome Type 2 diabetes mellitus Surgical History History of cataract surgery History of hysterectomy History of total left knee replacement S/P adenoidectomy Family History Mother Diabetes Heart disease Social History Smoking Status: Former smoker Tobacco Type: Cigarettes Second Hand Exposure: Yes; Hx Alcohol Use: No Hx Substance Use: No Preferred Language: Polish Communication Ability: Effective Visual Impairment: No Limitations Hearing Ability: Normal Ordnance Mechanic Required: No Beliefs That Will Affect Care: None marital status: Single Current Living Situation: Alone Current Living Situation Comment: Lives alone, son + granddaughter live nearby current occupational status: retired How many Children do You have: 1 Feels Safe at Home: Yes Safety Concerns: Feels Safe At This Time Assistive Devices: Denture - Upper, Glasses and Oxygen - at Night Review of Systems Review of Systems: All systems reviewed & are unremarkable except as noted in HPI & below Physical Exam Physical Exam: Constitutional: Chronically ill-appearing female, vitals as above, NAD, sitting up in bed, pleasant, conversing easily Head: Normocephalic, Atraumatic Eyes: PERRL, conjunctivae normal, anicteric sclerae ENMT: external ear and nose normal, oropharynx normal dry mucous membranes Neck: trachea midline, no thyromegaly normal visual inspection Respiratory: normal respiratory effort, lungs clear to auscultation, no wheeze, rales, rhonchi. Normal insp/exp effort, no accessory muscle use Cardiovascular: Regular rate, irregular rhythm, no murmur, bilateral lower extremity nonpitting edema, surrounding bilateral pretibial erythema with wounds noted in very stages of healing, Vessels: no JVD or carotid bruit Chest: normal inspection of chest Abdomen: normal bowel sounds, soft, nontender, no hepatosplenomegaly Musculoskeletal: no cyanosis or clubbing, active range of motion x4 Skin: Bilateral extremity cellulitis right greater than left, no rashes, warm and dry normal turgor Neurologic: PERRL, EOMI, accommodation nl, no face palsy, no dysarthria CN's II-XI intact bilaterally and moves all extremities Psychiatric: A+Ox3, euthymic affect Lymphatic: no cervical or axillary lymphadenopathy : Sacral erythema Results & Data Results & Data ([facility]) Vital Signs (Past 12 Hours) Vital Signs Temp Pulse Resp BP Pulse Ox 07/17/21 19:45 94 07/17/21 18:16 36.6 C 101 H 22 104/76 94 Diagnostic Findings Chest X-Ray 07/17/21 18:26 XR chest 1V portable CLINICAL HISTORY: weak COMPARISON STUDY: Chest radiograph June 09, 2021. FINDINGS: Lung volumes are normal. Lungs are clear. Lower lung airspace opacities have resolved. There is no pneumothorax or pleural effusion. Cardiomegaly is unchanged. Mediastinal contours are normal. There is no evidence for pulmonary edema. IMPRESSION: No acute cardiopulmonary findings. Cardiomegaly. ACT 112: Negative or not required by law. Electronically signed by: Keagan Morrow M.D. 07/17/2021 7:28 PM Medications Administered Medication List Sodium Chloride (Nss 1000ml) 250 mls @ 100 mls/hr IV .Q2H30M ONE Stop: 07/17/21 22: Last Admin: 07/17/21 20:27 Dose: 100 mls/hr Documented by: ECG Rate (beats per minute): 112 Rhythm: junctional COVID-19 Results Results COVID-19 Adm Lab Results: RBC 3.69 M/uL (4.2-5.4) L 07/18/21 WBC 8.80 K/uL (4.8-10.8) 07/18/21 Hgb 9.4 g/dL (12.0-16.0) L 07/18/21 Hct 31.8 % (37-47) L 07/18/21 Plt Count 165 K/uL (130-400) 07/18/21 Neutrophils (%) (Auto) 73.6 % 07/18/21 Lymphocytes (%) (Auto) 17.2 % 07/18/21 Monocytes # (Auto) 0.57 K/uL (0.11-0.59) 07/18/21 Eosinophils # (Auto) 0.18 K/uL (0-0.5) 07/18/21 Immature Granulocyte % (Auto) 0.5 % 07/18/21 Neutrophils # (Auto) 6.48 K/uL (1.4-6.5) 07/18/21 Lymphocytes # (Auto) 1.51 K/uL (1.2-3.4) 07/18/21 Monocytes # (Auto) 0.57 K/uL (0.11-0.59) 07/18/21 Eosinophils # (Auto) 0.18 K/uL (0-0.5) 07/18/21 Basophils # (Auto) 0.02 K/uL (0-0.2) 07/18/21 Immature Granulocyte # (Auto) 0.04 K/uL (0.00-0.02) H 07/18/21 Na 142 mmol/L (136-145) 07/18/21 K 4.4 mmol/L (3.5-5.1) 07/18/21 Cl 111 mmol/L (98-107) H 07/18/21 CO2 20 mmol/L (21-32) L 07/18/21 Anion Gap 11 (3-11) 07/18/21 BUN 73 mg/dl (6-23) H 07/18/21 Creatinine 1.85 mg/dl (0.6-1.2) H 07/18/21 BUN/Creatinine Ratio 39.5 (10-20) H 07/18/21 Glucose Level 91 mg/dl (70-99(Fasting)) 07/18/21 Ca 5.9 mg/dl (8.5-10.1) L* 07/18/21 Total Bilirubin 0.6 mg/dl (0.2-1.0) 07/17/21 AST/SGOT 20 U/L (13-39) 07/17/21 ALT/SGPT 8 U/L (7-52) 07/17/21 Alkaline Phosphatase 190 U/L (34-104) H 07/17/21 Total Protein 8.3 gm/dl (6.0-8.3) 07/17/21 Albumin 3.8 gm/dl (3.4-5.0) 07/17/21 Globulin 4.5 gm/dl (2.5-4.0) H 07/17/21 Albumin/Globulin Ratio 0.8 (0.9-2) L 07/17/21 Total CK 138 U/L (26-192) 07/17/21 Troponin I 0.03 ng/ml (0-0.04) 07/17/21 PTT 63.3 Seconds (21.0-31.0) H* 07/17/21 INR 7.9 (0.9-1.1) H* 07/17/21 SARS-CoV-2, RNA, NAAT NEGATIVE (NEGATIVE) 07/17/21 Chest X-Ray 07/17/21 Code Status & VTE Plan Code Status FULL CODE Supervising Physician Co-Signing Physician Notes IM ATTENDING : Patient seen and examined. History obtained from patient and records. Preceding documentation by Ms. Estrella Lee PA-C reviewed. FINAL ASSESSMENT AND PLAN as follows : Severe sepsis SIRS plus ARF on CKD Possible sources : recurrent bilateral LE cellulitis/infected wounds, underlying chronic venous insufficiency, rule out osteomyelitis Complicated UTI Rule out C. difficile as additional source of sepsis given diarrhea symptoms with recent antibiotic Rx Hyperkalemia secondary to kidney dysfunction and home medications AGMA secondary to kidney dysfunction/illness Chronic diastolic heart failure/right-sided heart failure as per records (EF 60 to 65%, TTE 2019), patient on the dry side tachybrady syndrome, hx AF, on Coumadin, INR supratherapeutic hx staph aureus bacteremia secondary to PPM infection status post PPM extraction (2018) hx CAD as per records Hypertension, BP on the lower side chronic respiratory failure secondary to COPD on home O2 at night, past tobacco abuse, pulmonary status at baseline DM 2 insulin requiring, reasonable control as of recent outpatient hemoglobin A1c of 7.27 May 2021 Electrolyte abnormalities secondary to diarrheal illness chronic anemia, hemoglobin at baseline Past tobacco abuse Medical telemetry CS, Doxycycline for cellulitis now, Azactam for complicated UTI Plain x-rays of the lower legs rule out osteomyelitis May need MRI to to definitely rule out osteomyelitis if plain x-rays negative May need C ID consult once work-up complete Stool C. difficile sodium bicarb 1 dose for hyperkalemia Monitor creatinine response to IVF Appropriate to hold home lisinopril, spironolactone, Lasix until creatinine back to baseline Nephrology consult if without improvement Replace electrolytes Oral Vitamin K 1 dose given supratherapeutic INR without overt source of bleed Basal insulin adjusted for clear liquid diet, ISS BG goal 1 10-1 40, carb count coverage DVT prophylaxis. Coumadin INR goal between 2 and 3 Full code Text document was generated using [email or web address] voice recognition software. It may contain grammatical or spelling errors. Kindly contact undersigned for clarification of any documentation item in question. (1) Diastolic CHF Heart failure chronicity: acute on chronic Qualified Code(s): I50.33 - Acute on chronic diastolic (congestive) heart failure
[2021-07-17 20:34] LABS: INR 7.9 (0.9-1.1); Partial Thromboplastin Time 63.3 Seconds (21.0-31.0)
[2021-07-17 20:41] LABS: Appearance Urine Cloudy (Clear); Bacteria Urine Automated Negative (Negative); Bilirubin Urine Negative (Negative); Blood Urine 1+ (Negative); Color Urine Yellow; Epithelial Cell Urine Auto >30 /lpf (0-5); Glucose Urine UA Negative (Negative); Ketones Urine Negative (Negative); Leukocyte Esterase Urine 2+ (Negative); Nitrite Urine Negative (Negative); Protein Urine Negative (Negative); Urobilinogen Urine Negative (Negative)
[2021-07-17 20:49] LABS: RBC Urine Automated 0-4 /hpf (0-4)
[2021-07-17] MEDS ORDERED: PHYTONADIONE 5 MG TAB PO STA (21:10)
[2021-07-17] MEDS ORDERED: DOXYCYCLINE HYCLATE 100 MG in DEXTROSE 5% 100 ML IV STA (21:18)
[2021-07-17 21:20] LABS: Adenovirus F 40/41 PCR Not Detected (NotDetected); Astrovirus PCR Not Detected (NotDetected); Campylobacter PCR Not Detected (NotDetected); Clostridium diff Toxin A/B PCR Not Detected (NotDetected); Cryptosporidium PCR Not Detected (NotDetected); Cyclospora cayetanensis PCR Not Detected (NotDetected); Entamoeba histolytica PCR Not Detected (NotDetected); Enteroaggregative E.coli(EAEC) Not Detected (NotDetected); Enteropathogenic E.coli (EPEC) Not Detected (NotDetected); Enterotoxigenic E.coli (ETEC) Not Detected (NotDetected); Giardia lamblia PCR Not Detected (NotDetected); Norovirus GI/GII PCR Not Detected (NotDetected); Plesiomonas shigelloides PCR Not Detected (NotDetected); Rotavirus A PCR Not Detected (NotDetected); Salmonella PCR Not Detected (NotDetected); Sapovirus PCR Not Detected (NotDetected); Shiga-like Toxin E.coli (STEC) Not Detected (NotDetected); Shigella/Enteroinvasive E.coli Not Detected (NotDetected); Vibrio cholerae PCR Not Detected (NotDetected); Vibrio species PCR Not Detected (NotDetected); Yersinia enterocolitica PCR Not Detected (NotDetected)
[2021-07-17] MEDS: MAGNESIUM SULFATE / D5W 1 GM/100 ML BAG IV SCH (21:59)
[2021-07-17 22:25] LABS: BUN Creatinine Ratio 35.1 (10-20); Calcium 5.9 mg/dl (8.5-10.1); Creatinine Clr Calc Pharmacy 21.1 ml/min; Est GFR (African American) 23.7 ml/min; Est GFR (Non-African American) 20.4 ml/min; Potassium 4.4 mmol/L (3.5-5.1)
[2021-07-17] MEDS ORDERED: PROMETHAZINE HCL 12.5 MG in SODIUM CHLORIDE 0.9% 50 ML IV PRN (23:29)
[2021-07-17] MEDS ORDERED: CARBOHYDRATES FOR HYPOGLYCEMIA PO PRN (23:29)
[2021-07-17] MEDS ORDERED: GLUCAGON FOR INJ 1 MG VIAL SQ PRN (23:29)
[2021-07-17] MEDS ORDERED: GLUCOSE 10 TABS/TUBE PO PRN (23:29)
[2021-07-17] MEDS ORDERED: GLUCOSE 40% GEL 15 GM TUBE PO PRN (23:29)
[2021-07-17] MEDS ORDERED: DEXTROSE 50% 50 ML SYRINGE IV PRN (23:29)
[2021-07-17] MEDS ORDERED: METOPROLOL TARTRATE 50 MG TAB PO SCH (23:29)
[2021-07-18] MEDS ORDERED: SODIUM CHLORIDE 0.9% 1000ML 1,000 ML IV ONE (00:30)
[2021-07-18] MEDS: MAGNESIUM SULFATE / D5W 1 GM/100 ML BAG IV SCH ×6 (00:33→12:57)
[2021-07-18] MEDS: INSULIN ASPART PER UNIT SC SCH ×5 (00:40→21:19)
[2021-07-18 04:08] LABS: Basophils # (auto) 0.02 K/uL (0-0.2); Basophils % (auto) 0.2 %; Eosinophils # (auto) 0.18 K/uL (0-0.5); Hematocrit (blood only) 31.8 % (37-47); Hemoglobin 9.4 g/dL (12.0-16.0); Immature Granulocytes # (auto) 0.04 K/uL (0.00-0.02); Immature Granulocytes % (auto) 0.5 %; Lymphocytes # (auto) 1.51 K/uL (1.2-3.4); Lymphocytes % (auto) 17.2 %; Mean Corpuscular Hemoglobin 25.5 pg (25-34); Mean Corpuscular Hgb Conc 29.6 g/dL (32-36); Mean Corpuscular Volume 86.2 fL (80-100); Mean Platelet Volume 11.2 fL (7.4-10.4); Monocytes # (auto) 0.57 K/uL (0.11-0.59); Monocytes % (auto) 6.5 %; Neutrophils # (auto) 6.48 K/uL (1.4-6.5); Neutrophils % (auto) 73.6 %; Platelet Count 165 K/uL (130-400); RDW Coefficient of Variation 18.9 % (11.5-14.5); RDW Standard Deviation 59.4 fL (36.4-46.3); Red Blood Count 3.69 M/uL (4.2-5.4)
[2021-07-18 04:27] LABS: Prothrombin Time 64.9 Seconds (9.0-12.0)
[2021-07-18] MEDS ORDERED: CALCIUM GLUCONATE 10% 2,000 MG in DEXTROSE 5% 50 ML IV ONE ×2 (04:35→10:00)
[2021-07-18] MEDS ORDERED: STAT IV STA ×2 (04:35→09:36)
[2021-07-18 04:36] LABS: BUN Creatinine Ratio 39.5 (10-20); Calcium 5.9 mg/dl (8.5-10.1); Creatinine Clr Calc Pharmacy 25.3 ml/min; Est GFR (African American) 29.5 ml/min; Est GFR (Non-African American) 25.4 ml/min; Magnesium 1.1 mg/dl (1.7-2.4); Potassium 4.4 mmol/L (3.5-5.1)
[2021-07-18] MEDS ORDERED: LOPERAMIDE HCL 2 MG CAP PO PRN ×2 (04:37→12:18)
[2021-07-18] MEDS ORDERED: [UNRECOGNIZED DRUG - REMARK] PRN (04:40)
[2021-07-18] MEDS ORDERED: AZTREONAM 2,000 MG in DEXTROSE 5% 100 ML IV ONE (04:45)
[2021-07-18 04:59] LABS: INR 7.5 (0.9-1.1)
--- NOTE | 2021-07-18 07:36 | XRay Report ---
LEFT TIBIA AND FIBULA 2 VIEWS CLINICAL HISTORY: Leg swelling. FINDINGS: AP and lateral views of the left tibia and fibula are correlated with radiographs of the le ft knee dated 05/14/2011. The skeletal structures are osteopenic. There is no radiographic evidence o f left tibial or fibular fracture. No bony erosion or periostitis is identified. A left knee arthropl asty is in place. There are dorsal and plantar calcaneal enthesophytes. Calcification is noted at the insertion of the Achilles tendon. Soft tissue edema is present throughout the left leg. IMPRESSION: Soft tissue swelling with no acute bony abnormality identified. Electronically signed by: Reed Chapman M.D. 07/18/2021 7:35 AM
--- NOTE | 2021-07-18 08:03 | CT Scan Report ---
CT SCAN OF THE ABDOMEN AND PELVIS WITHOUT IV CONTRAST CLINICAL HISTORY: Generalized abdominal pain. COMPARISON STUDY: Abdominal CT dated 06/02/2021. TECHNIQUE: CT scan of the abdomen and pelvis is performed from the lung bases to the proximal femora. Images are reviewed in the axial, sagittal, and coronal planes. IV contrast was not administered for this examination. Note that the examination was performed in suboptimal fashion without oral and IV contrast. A dose lowering technique was utilized adhering to the principles of ALARA. CT DOSE: 1060.22 mGy.cm FINDINGS: Lung bases: The heart is normal in size and without pericardial effusion. The coronary arteries are d ensely calcified. The lung bases are clear noting bibasilar scarring/atelectasis. Liver: The unenhanced liver is cirrhotic in morphology and heterogeneous in attenuation. There is nod ularity of the hepatic surface contour. There is no intrahepatic biliary ductal dilatation. Gallbladder: Unremarkable. Spleen: Normal in size and attenuation. Pancreas: The unenhanced pancreas is atrophic and grossly unremarkable. Adrenal glands: Unremarkable. Kidneys: The unenhanced kidneys are atrophic and without hydronephrosis. There are no renal calculi i dentified. There is no evidence of contour deforming renal mass lesion. Abdominal vasculature: The abdominal aorta is normal in course and caliber noting advanced atheroscle rotic calcification. Bowel: The gastric wall appears diffusely thickened. A metallic foreign body is present within the ce cum on image #[id number]. No bowel obstruction is seen. The appendix is well-visualized and normal. Peritoneum: There is no intraperitoneal free air or abdominal ascites. Lymphadenopathy: None. Pelvic viscera: The bladder is normal as visualized. The uterus is surgically absent. A 2.9 cm simple cystic lesion is noted in the left ovary on image were 272. Skeletal structures: The skeletal structures are osteopenic. Advanced lumbosacral spondylosis is obse rved. There is a minimal inferior endplate compression deformity of L1. No lytic or blastic lesions a re seen. IMPRESSION: 1. Suboptimal examination without oral and IV contrast. 2. The gastric wall appears thickened but is not well assessed by CT. Correlate clinically for eviden ce of gastritis. 3. Cirrhotic liver morphology. 4. An ingested metallic foreign body is noted in the cecum, and is new from 06/02/2021. 5. Additional findings as above. ACT 112: Negative or not required by law. Electronically signed by: Reed Chapman M.D. 07/18/2021 8:01 AM
--- NOTE | 2021-07-18 08:04 | XRay Report ---
RIGHT TIBIA AND FIBULA 2 VIEWS CLINICAL HISTORY: Lower extremity edema. FINDINGS: AP and lateral views of the right tibia and fibula are obtained. No prior studies are avail able for comparison at the time of dictation. The skeletal structures are osteopenic. No fracture is seen. There is no bony erosion or periostitis. Arthritic change is noted at the knee joint. The ankle mortise appears intact. Soft tissue edema is present throughout the right lower extremity. IMPRESSION: Soft tissue swelling with no acute bony abnormality identified. Electronically signed by: Reed Chapman M.D. 07/18/2021 8:02 AM
[2021-07-18] MEDS: FLUTICASONE/VILANTEROL 100/25MCG 14 PUFFS/INHALER INH SCH (08:35)
[2021-07-18] MEDS: FERROUS SULFATE 325 MG TAB PO SCH (08:36)
[2021-07-18] MEDS: METOPROLOL TARTRATE 25 MG TAB PO SCH ×2 (08:37→21:03)
[2021-07-18] MEDS: INSULIN GLARGINE SOLOSTAR 100 UNITS/ML 3 ML PEN SC SCH (08:48)
[2021-07-18] MEDS ORDERED: FLUTICASONE/SALMETEROL 250/50 (ADVAIR) 14 PUFF/1 INHALER INH SCH (09:00)
[2021-07-18] MEDS ORDERED: IPRATROPIUM BROMIDE/ALBUTEROL respimat INH INH SCH (09:00)
[2021-07-18] MEDS ORDERED: [UNRECOGNIZED DRUG - REMARK] SCH (09:00)
[2021-07-18] MEDS: Ipratropium HFA Inhaler (Combivent Respimat P&T Subs) INH SCH ×4 (09:50→19:37)
[2021-07-18] MEDS: Albuterol HFA 8 GM Inhaler (Combivent Respimat P&T Subs) INH SCH ×4 (09:50→19:37)
[2021-07-18] MEDS: DOXYCYCLINE HYCLATE 100 MG CAP PO SCH (10:36)
--- NOTE | 2021-07-18 11:59 | Electrocardiogram Report ---
Test Reason : Blood Pressure : / mmHG Vent. Rate : 112 BPM Atrial Rate : 112 BPM P-R Int : 000 ms QRS Dur : 092 ms QT Int : 332 ms P-R-T Axes : 000 024 -42 degrees QTc Int : 453 ms Poor data quality, interpretation may be adversely affected Atrial fibrillation Possible Anterolateral infarct , age undetermined T wave abnormality, consider inferior ischemia Abnormal ECG When compared with ECG of 02-JUN-2021 13:38, Borderline criteria for Anterior infarct are now Present Borderline criteria for Anterolateral infarct are now Present Confirmed by Raoul Alvarado ([id number]) on 07/18/2021 11:59:30 AM Referred By: REFERRED SELF Confirmed By:Garland Alvarado
[2021-07-18] MEDS: AZTREONAM 1,000 MG in DEXTROSE 5% 100 ML IV SCH ×2 (12:56→21:01)
[2021-07-18 13:13] LABS: Albumin Level 3.1 gm/dl (3.4-5.0); BUN Creatinine Ratio 38.8 (10-20); Calcium 6.4 mg/dl (8.5-10.1); Creatinine Clr Calc Pharmacy 34.8 ml/min; Est GFR (African American) 37.4 ml/min; Est GFR (Non-African American) 32.3 ml/min; Phosphorus 3.5 mg/dl (2.5-4.9); Potassium 4.1 mmol/L (3.5-5.1)
[2021-07-18] MEDS ORDERED: SIMVASTATIN 20 MG TAB PO SCH (21:00)
[2021-07-18] MEDS: PANTOprazole 40 MG TAB PO SCH (21:03)
--- NOTE | 2021-07-18 21:15 | Hospitalist Progress Note ---
Date of Service July 18, 2021 Assessment & Plan (1) Diarrhea in adult patient: (2) Bilateral lower leg cellulitis: (3) Acute worsening of stage 3 chronic kidney disease: (4) Hyperkalemia: (5) Hypocalcemia: (6) Chronic atrial fibrillation: (7) DM type 2 (diabetes mellitus, type 2): (8) Diastolic CHF: (9) Nocturnal hypoxemia: Plan: Present on admission with recurrent episodes of watery diarrhea CT abd/pelvis showed no bowel obstruction is seen.ingested metallic foreign body is noted in the cecum, and is new from 06/02/2021. Stool for C. difficile negative Diet advanced as tolerated Diarrhea improved after initiated Immodium prn Continue monitor electrolytes B/L LE cellulitis Xray of Tibia and fibula showed Soft tissue swelling with no acute bony abnormality identified. Received IV Azactam and doxycycline Blood culture and wound culture pending Normocytic Anemia Hemoglobin 9.4. EGD and colonoscopy were performed in the last admission S/P EGD: Gastritis, multiple polyps in the stomach suggestive of fundic gland polyposis biopsy taken. S/P Colonoscopy: Hemorrhoids, perianal erythema, skin tag that appeared to be oozing slightly. Multiple sigmoid diverticula. Nonbleeding AVM in the ascending colon ablated. Received vitamin K Continue monitor CBC Elevated INR currently INR 7.5 Received Vit K No sign of active bleding Continue monitor Hypomagnesemia: Mg 1.1 today Magnesium replaced Continue Monitor Chronic atrial fibrillation: 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 Rate controlled on metoprolol Continue to hold coumadin since INR 7.5 today Monitor INR daily DM type 2 (diabetes mellitus, type 2): Most recent Hba1c 7.4 On Lantus and NovoLog per protocol while hospitalized Continue monito Diastolic CHF BS COPD (chronic obstructive pulmonary disease): At baseline O2 by nasal cannula Hypoxemic respiratory failure, chronic: -Saturating well on chronic 2 L of oxygen -No signs of acute exacerbation, continue home inhalers DVT prophylaxis: Coumadin on hold due to INR 7.5 CODE STATUS Full code Admission and Anticipated Discharge Date Admission Date: July 17, 2021 Subjective Patient was seen and examined for follow-up of diarrhea and lower extremity cellulitis Lying in bed with no acute distress Earlier today patient had multiple episodes of watery diarrhea Diarrhea seems to slow down after Imodium given denies any chest pain, palpitation, dizziness, shortness of breath. Review of Systems Review of Systems: All systems reviewed & are unremarkable except as noted in Subjective Physical Exam Physical Exam: General- No acute distress Head- at raumatic Eyes- PER RL, EOMI, ENT- [place] pharynx clear Neck - supple, no JVD L ungs- clear to aus cultation Heart- r egular rhythm; no murmur Abdomen- no rmal bowel sounds, soft, nontender E xtremities- no ca lf tenderness, +ed byron, B/L LE wrappe d Neuro- alert, or iented x 3; PERRL, EOMI; no facial p alsy; no dysarthri a Skin- warm & dry Results & Data Results & Data ([facility]) Vital Signs (Past 12 Hours) Vital Signs Temp Pulse Pulse Resp BP BP Pulse Ox 07/18/21 19:36 78 20 96 07/18/21 18:38 36.5 C 113 H 20 117/74 95 07/18/21 18:28 36.7 C 119 H 16 117/62 97 07/18/21 16:33 36.3 C L 69 15 107/59 L 91 07/18/21 15:47 79 20 97 07/18/21 15:00 104 H 07/18/21 11:19 36.7 C 102 H 20 119/60 99 (1) Diastolic CHF Heart failure chronicity: acute on chronic Qualified Code(s): I50.33 - Acute on chronic diastolic (congestive) heart failure
[2021-07-18 22:43] LABS: Prothrombin Time 55.7 Seconds (9.0-12.0)
[2021-07-18 22:45] LABS: INR 6.4 (0.9-1.1)
[2021-07-19] MEDS: DOXYCYCLINE HYCLATE 100 MG CAP PO SCH ×3 (00:03→20:30)
[2021-07-19] MEDS: AZTREONAM 1,000 MG in DEXTROSE 5% 100 ML IV SCH ×2 (04:12→12:45)
[2021-07-19] MEDS ORDERED: SODIUM CHLORIDE 0.65% NA SOLN 45 ML (OCEAN) STA (04:21)
[2021-07-19] MEDS ORDERED: SODIUM CHLORIDE 0.65% NA SOLN 45 ML (OCEAN) ONE (04:27)
[2021-07-19] MEDS: Ipratropium HFA Inhaler (Combivent Respimat P&T Subs) INH SCH ×4 (07:20→19:56)
[2021-07-19] MEDS: Albuterol HFA 8 GM Inhaler (Combivent Respimat P&T Subs) INH SCH ×4 (07:20→19:57)
[2021-07-19 07:34] LABS: Hematocrit (blood only) 30.7 % (37-47); Hemoglobin 9.1 g/dL (12.0-16.0); Mean Corpuscular Hemoglobin 25.9 pg (25-34); Mean Corpuscular Hgb Conc 29.6 g/dL (32-36); Mean Corpuscular Volume 87.5 fL (80-100); Mean Platelet Volume 10.9 fL (7.4-10.4); Platelet Count 167 K/uL (130-400); RDW Coefficient of Variation 19.1 % (11.5-14.5); Red Blood Count 3.51 M/uL (4.2-5.4); White Blood Count 6.92 K/uL (4.8-10.8)
[2021-07-19 07:54] LABS: INR 5.5 (0.9-1.1); Prothrombin Time 48.8 Seconds (9.0-12.0)
[2021-07-19 08:05] LABS: BUN Creatinine Ratio 41.2 (10-20); Calcium 6.7 mg/dl (8.5-10.1); Creatinine Clr Calc Pharmacy 51.8 ml/min; Est GFR (African American) 60.6 ml/min; Est GFR (Non-African American) 52.3 ml/min; Magnesium 1.7 mg/dl (1.7-2.4); Phosphorus 2.7 mg/dl (2.5-4.9); Potassium 4.3 mmol/L (3.5-5.1)
[2021-07-19] MEDS: FERROUS SULFATE 325 MG TAB PO SCH (09:10)
[2021-07-19] MEDS: FLUTICASONE/VILANTEROL 100/25MCG 14 PUFFS/INHALER INH SCH (09:10)
[2021-07-19] MEDS: METOPROLOL TARTRATE 25 MG TAB PO SCH ×2 (09:10→20:29)
[2021-07-19] MEDS: INSULIN ASPART PER UNIT SC SCH ×4 (11:11→20:49)
[2021-07-19] MEDS: INSULIN GLARGINE SOLOSTAR 100 UNITS/ML 3 ML PEN SC SCH (11:12)
[2021-07-19] MEDS: NYSTATIN POWDER 15GM BTL EXT SCH ×2 (14:03→20:31)
[2021-07-19] MEDS ORDERED: DAPTOmycin 450 MG in SYRINGE 0 ML IV SCH (16:00)
--- NOTE | 2021-07-19 16:48 | Hospitalist Progress Note ---
Date of Service July 19, 2021 Assessment & Plan (1) Diarrhea in adult patient: (2) Bilateral lower leg cellulitis: (3) Acute worsening of stage 3 chronic kidney disease: (4) Hyperkalemia: (5) Hypocalcemia: (6) Chronic atrial fibrillation: (7) DM type 2 (diabetes mellitus, type 2): (8) Diastolic CHF: (9) Nocturnal hypoxemia: Plan: Present on admission with recurrent episodes of watery diarrhea CT abd/pelvis showed no bowel obstruction is seen.ingested metallic foreign body is noted in the cecum, and is new from 06/02/2021. Stool for C. difficile negative Diet advanced as tolerated Diarrhea improved after initiated Imodium prn Continue monitor electrolytes B/L LE cellulitis Xray of Tibia and fibula showed Soft tissue swelling with no acute bony abnormality identified. Received IV Azactam and doxycycline Blood culture gram positive cocci wound culture staph Will start on Dapo Hold Statin while on dapto Will repeat blood cx Will get an echo Consider ID consult Foreign Body ingested CT abd/pelvis showed no bowel obstruction is seen.ingested metallic foreign body is noted in the cecum, and is new from 06/02/2021. Asymptomatic No sign of perforation or peritonitis Case discussed with gastro ( No official consult placed) recommended to follow up with KUB to monitor Normocytic Anemia Hemoglobin 9.4. EGD and colonoscopy were performed in the last admission S/P EGD: Gastritis, multiple polyps in the stomach suggestive of fundic gland polyposis biopsy taken. S/P Colonoscopy: Hemorrhoids, perianal erythema, skin tag that appeared to be oozing slightly. Multiple sigmoid diverticula. Nonbleeding AVM in the ascending colon ablated. 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 Rate controlled on metoprolol Continue to hold coumadin since INR 5.5 today Monitor INR daily DM type 2 (diabetes mellitus, type 2): Most recent Hba1c 7.4 On Lantus and NovoLog per protocol while hospitalized Continue monito Diastolic CHF BS COPD (chronic obstructive pulmonary disease): At baseline O2 by nasal cannula Hypoxemic respiratory failure, chronic: -Saturating well on chronic 2 L of oxygen -No signs of acute exacerbation, continue home inhalers DVT prophylaxis: Coumadin on hold due to INR 5.5 Coumadin on hold CODE STATUS Full code Admission and Anticipated Discharge Date Admission Date: July 17, 2021 Subjective Patient was seen and examined for follow-up of diarrhea and lower extremity cellulitis Lying in bed with no acute distress Pt said that her diarrhea improved denies any chest pain, palpitation, dizziness, shortness of breath. Review of Systems Review of Systems: All systems reviewed & are unremarkable except as noted in Subjective Physical Exam Physical Exam: General- No acute distress Head- at raumatic Eyes- PER RL, EOMI, ENT- [place] pharynx clear Neck - supple, no JVD L ungs- clear to aus cultation Heart- r egular rhythm; no murmur Abdomen- no rmal bowel sounds, soft, nontender E xtremities- no ca lf tenderness, +ed byron, B/L LE wrappe d Neuro- alert, or iented x 3; PERRL, EOMI; no facial p alsy; no dysarthri a Skin- warm & dry Results & Data Results & Data ([facility]) Vital Signs (Past 12 Hours) Vital Signs Temp Pulse Resp BP Pulse Ox 07/19/21 15:19 54 L 20 96 07/19/21 15:15 36.6 C 86 20 125/72 97 07/19/21 11:14 36.8 C 20 104/64 94 07/19/21 10:52 75 18 96 07/19/21 07:46 36.5 C 93 H 19 118/71 96 07/19/21 07:21 67 18 96 (1) Diastolic CHF Heart failure chronicity: acute on chronic Qualified Code(s): I50.33 - Acute on chronic diastolic (congestive) heart failure
[2021-07-19] MEDS ORDERED: CALCIUM GLUCONATE 10% 2,000 MG in DEXTROSE 5% 50 ML IV ONE (20:15)
[2021-07-19] MEDS: PANTOprazole 40 MG TAB PO SCH (20:30)
[2021-07-19] MEDS ORDERED: MAGNESIUM SULFATE / D5W 1 GM/100 ML BAG IV ONE (21:00)
[2021-07-19 21:38] LABS: Basophils # (auto) 0.04 K/uL (0-0.2); Basophils % (auto) 0.5 %; Eosinophils # (auto) 0.22 K/uL (0-0.5); Eosinophils % (auto) 2.6 %; Hematocrit (blood only) 33.3 % (37-47); Hemoglobin 9.9 g/dL (12.0-16.0); Immature Granulocytes # (auto) 0.03 K/uL (0.00-0.02); Immature Granulocytes % (auto) 0.4 %; Lymphocytes # (auto) 1.23 K/uL (1.2-3.4); Lymphocytes % (auto) 14.6 %; Mean Corpuscular Hemoglobin 25.9 pg (25-34); Mean Corpuscular Hgb Conc 29.7 g/dL (32-36); Mean Corpuscular Volume 87.2 fL (80-100); Mean Platelet Volume 10.5 fL (7.4-10.4); Monocytes # (auto) 0.47 K/uL (0.11-0.59); Monocytes % (auto) 5.6 %; Neutrophils # (auto) 6.42 K/uL (1.4-6.5); Neutrophils % (auto) 76.3 %; Platelet Count 183 K/uL (130-400); RDW Coefficient of Variation 18.9 % (11.5-14.5); RDW Standard Deviation 60.6 fL (36.4-46.3); Red Blood Count 3.82 M/uL (4.2-5.4); White Blood Count 8.41 K/uL (4.8-10.8)
[2021-07-19 22:01] LABS: Prothrombin Time 48.9 Seconds (9.0-12.0)
[2021-07-19 22:02] LABS: INR 5.5 (0.9-1.1)
[2021-07-19 22:07] LABS: Albumin Level 3.1 gm/dl (3.4-5.0); BUN Creatinine Ratio 33.3 (10-20); Calcium 7.3 mg/dl (8.5-10.1); Creatinine Clr Calc Pharmacy 51.8 ml/min; Est GFR (African American) 60.6 ml/min; Est GFR (Non-African American) 52.3 ml/min; Phosphorus 1.6 mg/dl (2.5-4.9); Potassium 4.7 mmol/L (3.5-5.1)
[2021-07-19] MEDS ORDERED: POTASSIUM PHOS 3 MMOL/1 ML INFUSION IV STA (22:12)
[2021-07-19] MEDS ORDERED: SODIUM CHLORIDE 0.9% 1000ML 1,000 ML IV ONE (22:13)
[2021-07-19] MEDS ORDERED: SODIUM PHOSPHATE 3 MMOL/1 ML 5 ML VIAL IV STA (22:14)
[2021-07-19] MEDS ORDERED: SODIUM PHOSPHATE 40 MMOL in DEXTROSE 5% 1,000 ML IV ONE (22:30)
--- NOTE | 2021-07-19 23:23 | CT Scan Report ---
CT OF THE CERVICAL SPINE WITHOUT CONTRAST CLINICAL HISTORY: neck pain, high INR COMPARISON STUDY: No previous studies for comparison. TECHNIQUE: Helical axial images of the cervical spine were obtained without IV contrast. Sagittal a nd coronal reconstructions were viewed. Automated exposure control was utilized for the study. A do se lowering technique was utilized adhering to the principles of ALARA. FINDINGS: Alignment of the cervical spine is anatomic. Vertebral body heights are maintained. No acut e cervical spine fracture or subluxation is present. There is no prevertebral edema. Facet joints are intact. Note is made of moderate to severe multilevel facet arthrosis and degenerative disc disease within the cervical spine. IMPRESSION: 1. No acute cervical spine fracture or subluxation. 2. Moderate to severe multilevel facet arthrosis and degenerative disc disease within the cervical sp ine. ACT 112: Negative or not required by law. Electronically signed by: Keagan Morrow M.D. 07/19/2021 11:22 PM
--- NOTE | 2021-07-19 23:39 | CT Scan Report ---
CT shoulder RT wo con CLINICAL HISTORY: shoulder pain, high INR COMPARISON STUDY: No previous studies for comparison. TECHNIQUE: Axial images of the right shoulder were obtained without IV contrast. Sagittal and coronal reconstructions were viewed. Automated exposure control was utilized for the study. A dose lowering technique was utilized adhering to the principles of ALARA. FINDINGS: Note is made of mild groundglass opacities within visualized portions of the right lung. No acute fracture within the right shoulder is present. Alignment is anatomic. No suspicious osseous le katt is present. Moderate osteoarthritis of the right acromioclavicular joint is noted. Mild to moder ate degenerative changes of the right glenohumeral joint are present. There is no right axillary lymp hadenopathy. IMPRESSION: 1. No acute fracture or dislocation within the right shoulder. 2. Moderate degenerative changes of the right shoulder. 3. Ground glass opacities within visualized portions of the right lung which favor an infectious proc ess. ACT 112: Negative or not required by law. Electronically signed by: Keagan Morrow M.D. 07/19/2021 11:37 PM
--- NOTE | 2021-07-19 23:46 | CT Scan Report ---
CT OF THE HEAD WITHOUT CONTRAST CLINICAL HISTORY: arm/leg weakness,high INR COMPARISON STUDY: No previous studies for comparison. TECHNIQUE: Helical axial images of the head were obtained without IV contrast. Automated exposure con trol was utilized for the study. A dose lowering technique was utilized adhering to the principles o f ALARA. FINDINGS: No acute intracranial hemorrhage, midline shift or mass effect is present. The ventricular system is unremarkable. The basal cisterns are patent. No extra-axial collections are present. There are no findings to suggest acute dural sinus thrombosis or acute territorial infarct. No significant calvarial abnormalities are present. Visualized portions of the sinuses and mastoid air cells are josette ar. IMPRESSION: No acute intracranial findings. ACT 112: Negative or not required by law. Electronically signed by: Keagan Morrow M.D. 07/19/2021 11:45 PM
--- NOTE | 2021-07-19 23:52 | CT Scan Report ---
CT shoulder LT wo con CLINICAL HISTORY: shoulder pain, high INR COMPARISON STUDY: No previous studies for comparison. TECHNIQUE: Axial images of the left shoulder were obtained without IV contrast. Sagittal and coronal reconstructions were viewed. Automated exposure control was utilized for the study. A dose lowering technique was utilized adhering to the principles of ALARA. FINDINGS: No acute fracture within the left shoulder is noted. No suspicious osseous lesion is presen t. Moderate to severe osteoarthritis of the left glenohumeral joint is noted. There is moderate acrom ioclavicular joint osteoarthritis. There is no left axillary lymphadenopathy. Groundglass opacities a re noted within visualized portions of the left lung. IMPRESSION: 1. No acute fracture or dislocation within the left shoulder. 2. Moderate to severe osteoarthritis of the left glenohumeral joint. 3. Ground glass opacities within visualized portions of the left lung which favor an infectious proce ss. ACT 112: Negative or not required by law. Electronically signed by: Keagan Morrow M.D. 07/19/2021 11:50 PM
[2021-07-20 06:53] LABS: Hematocrit (blood only) 29.8 % (37-47); Mean Corpuscular Hemoglobin 26.2 pg (25-34); Mean Corpuscular Hgb Conc 30.2 g/dL (32-36); Mean Corpuscular Volume 86.9 fL (80-100); Mean Platelet Volume 11.1 fL (7.4-10.4); Platelet Count 178 K/uL (130-400); RDW Coefficient of Variation 18.8 % (11.5-14.5); RDW Standard Deviation 60.2 fL (36.4-46.3); Red Blood Count 3.43 M/uL (4.2-5.4)
[2021-07-20] MEDS: Ipratropium HFA Inhaler (Combivent Respimat P&T Subs) INH SCH ×4 (07:05→19:52)
[2021-07-20] MEDS: Albuterol HFA 8 GM Inhaler (Combivent Respimat P&T Subs) INH SCH ×4 (07:05→19:52)
[2021-07-20 07:07] LABS: INR 5.1 (0.9-1.1); Prothrombin Time 45.7 Seconds (9.0-12.0)
--- NOTE | 2021-07-20 07:14 | Communication Note ---
Date of Service: July 19, 2021 Late entry 8 PM Patient complained to RN of bilateral upper arm weakness the last couple of hours. Patient thinks earlier bilateral leg weakness spreading to her arms. No chest pain, no S OB. No headache symptoms. Patient also complaining of neck pain and bilateral shoulder pain. No unusual numbness as per patient. PPE MMTs BUE : 3/5, BLE: 4/5 Gait and stance not assessed CPK 199 AP Bilateral upper extremity weakness ? Myopathy from beginning rhabdomyolysis, history daptomycin Rx for gram- positive bacteremia (1 bottle) Rule out bleed given Coumadin coagulopathy Hold daptomycin for now IVF, follow CPK Continue doxycycline Rx CT head, CT cervical spine, CT right and left shoulders. Further management pending work-up results.
[2021-07-20 07:42] LABS: BUN Creatinine Ratio 31.4 (10-20); Calcium 7.8 mg/dl (8.5-10.1); Creatinine Clr Calc Pharmacy 61.2 ml/min; Est GFR (African American) 74.5 ml/min; Est GFR (Non-African American) 64.3 ml/min; Phosphorus 3.2 mg/dl (2.5-4.9); Potassium 4.3 mmol/L (3.5-5.1)
[2021-07-20] MEDS: METOPROLOL TARTRATE 25 MG TAB PO SCH ×2 (08:44→20:41)
[2021-07-20] MEDS: DOXYCYCLINE HYCLATE 100 MG CAP PO SCH ×2 (08:44→20:42)
[2021-07-20] MEDS: FLUTICASONE/VILANTEROL 100/25MCG 14 PUFFS/INHALER INH SCH (08:44)
[2021-07-20] MEDS: FERROUS SULFATE 325 MG TAB PO SCH (08:44)
[2021-07-20] MEDS: INSULIN GLARGINE SOLOSTAR 100 UNITS/ML 3 ML PEN SC SCH (08:45)
[2021-07-20] MEDS: NYSTATIN POWDER 15GM BTL EXT SCH ×2 (08:45→20:41)
[2021-07-20] MEDS ORDERED: VANCOMYCIN HCL 1,000 MG in SODIUM CHLORIDE 0.9% 250 ML IV SCH (09:00)
[2021-07-20] MEDS ORDERED: VANCOMYCIN CONSULT ACTIVE PRN (09:00)
[2021-07-20] MEDS: INSULIN ASPART PER UNIT SC SCH ×4 (09:01→20:41)
--- NOTE | 2021-07-20 09:29 | XRay Report ---
KUB CLINICAL HISTORY: f/u metallic foreign body COMPARISON STUDY: CT of the abdomen and pelvis July 17, 2021. FINDINGS: 3 metallic densities within the right lower quadrant are unchanged in position and within t he cecum when correlating with CT of July 17, 2021. These represent endoscopic clips. Bowel gas p attern is normal. No urinary calculi are identified. Amount stool is within normal limits. IMPRESSION: No change in position of 3 metallic densities within the cecum which represent endoscopi c clips. ACT 112: Negative or not required by law. Electronically signed by: Keagan Morrow M.D. 07/20/2021 9:28 AM
[2021-07-20] MEDS: ceFAZolin 2000MG 2,000 MG/15 ML SYR IV SCH ×2 (11:13→18:01)
--- NOTE | 2021-07-20 19:49 | Hospitalist Progress Note ---
Date of Service July 20, 2021 Assessment & Plan (1) Diarrhea in adult patient: (2) Bilateral lower leg cellulitis: (3) Acute worsening of stage 3 chronic kidney disease: (4) Hyperkalemia: (5) Hypocalcemia: (6) Chronic atrial fibrillation: (7) DM type 2 (diabetes mellitus, type 2): (8) Diastolic CHF: (9) Nocturnal hypoxemia: Plan: Present on admission with recurrent episodes of watery diarrhea CT abd/pelvis showed no bowel obstruction is seen.ingested metallic foreign body is noted in the cecum, and is new from 06/02/2021. Stool for C. difficile negative Diet advanced as tolerated Diarrhea improved after initiated Imodium prn Continue monitor electrolytes B/L LE cellulitis Xray of Tibia and fibula showed Soft tissue swelling with no acute bony abnormality identified. Received IV Azactam and doxycycline Blood culture gram positive cocci Wound culture staph IV dapto was changed to Cefazolin IV Hold Statin while on dapto Repeat blood cx pending ECHO showed no evidence of vegetation Will consult ID Foreign Body ingested CT abd/pelvis showed no bowel obstruction is seen.ingested metallic foreign body is noted in the cecum, and is new from 06/02/2021. Asymptomatic No sign of perforation or peritonitis Case discussed with gastro ( No official consult placed) recommended to follow up with KUB to monitor KUB showed no change in position of 3 metallic densities within the cecum which represent endoscopic clips. Normocytic Anemia Hemoglobin 9 today EGD and colonoscopy were performed in the last admission S/P EGD: Gastritis, multiple polyps in the stomach suggestive of fundic gland polyposis biopsy taken. S/P Colonoscopy: Hemorrhoids, perianal erythema, skin tag that appeared to be oozing slightly. Multiple sigmoid diverticula. Nonbleeding AVM in the ascending colon ablated. 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 DM type 2 (diabetes mellitus, type 2): Most recent Hba1c 7.4 On Lantus and NovoLog per protocol while hospitalized Continue monitor BS COPD (chronic obstructive pulmonary disease): Hypoxemic respiratory failure, chronic: CT showed Ground glass opacities within visualized portions of the right lung which favor an infectious process. Saturating well on chronic 2 L of oxygen Continue doxycycline No signs of acute exacerbation, continue home inhalers DVT prophylaxis: Coumadin on hold due to INR 5.1 CODE STATUS Full code Admission and Anticipated Discharge Date Admission Date: July 17, 2021 Subjective Patient was seen and examined for follow-up of diarrhea and lower extremity cellulitis Lying in bed with no acute distress Pt said that her diarrhea improved denies any chest pain, palpitation, dizziness, shortness of breath. Review of Systems Review of Systems: All systems reviewed & are unremarkable except as noted in Subjective Physical Exam Physical Exam: General- No acute distress Head- at raumatic Eyes- PER RL, EOMI, ENT- [place] pharynx clear Neck - supple, no JVD L ungs- clear to aus cultation Heart- r egular rhythm; no murmur Abdomen- no rmal bowel sounds, soft, nontender E xtremities- no ca lf tenderness, +ed byron, B/L LE wrappe d Neuro- alert, or iented x 3; PERRL, EOMI; no facial p alsy; no dysarthri a Skin- warm & dry Results & Data Results & Data ([facility]) Vital Signs (Past 12 Hours) Vital Signs Temp Pulse Resp BP Pulse Ox 07/20/21 15:37 90 18 96 07/20/21 15:33 37.2 C 101 H 19 137/88 93 07/20/21 11:39 88 18 96 07/20/21 10:59 37 C 110 H 20 121/77 93 (1) Diastolic CHF Heart failure chronicity: acute on chronic Qualified Code(s): I50.33 - Acute on chronic diastolic (congestive) heart failure
[2021-07-20] MEDS: PANTOprazole 40 MG TAB PO SCH (20:41)
[2021-07-21] MEDS: ceFAZolin 2000MG 2,000 MG/15 ML SYR IV SCH ×3 (02:01→17:50)
[2021-07-21 07:23] LABS: INR 4.5 (0.9-1.1); Prothrombin Time 40.6 Seconds (9.0-12.0)
[2021-07-21] MEDS: Albuterol HFA 8 GM Inhaler (Combivent Respimat P&T Subs) INH SCH ×4 (07:25→20:33)
[2021-07-21] MEDS: Ipratropium HFA Inhaler (Combivent Respimat P&T Subs) INH SCH ×4 (07:25→20:33)
[2021-07-21] MEDS: FERROUS SULFATE 325 MG TAB PO SCH (08:25)
[2021-07-21] MEDS: METOPROLOL TARTRATE 25 MG TAB PO SCH ×2 (08:26→21:40)
[2021-07-21] MEDS: FLUTICASONE/VILANTEROL 100/25MCG 14 PUFFS/INHALER INH SCH (08:26)
[2021-07-21] MEDS: NYSTATIN POWDER 15GM BTL EXT SCH ×2 (08:27→21:41)
[2021-07-21] MEDS: INSULIN GLARGINE SOLOSTAR 100 UNITS/ML 3 ML PEN SC SCH (08:27)
[2021-07-21] MEDS: INSULIN ASPART PER UNIT SC SCH ×4 (08:28→21:49)
[2021-07-21 11:01] LABS: Hematocrit (blood only) 28.1 % (37-47); Hemoglobin 8.3 g/dL (12.0-16.0); Mean Corpuscular Hemoglobin 25.8 pg (25-34); Mean Corpuscular Hgb Conc 29.5 g/dL (32-36); Mean Corpuscular Volume 87.3 fL (80-100); Platelet Count 189 K/uL (130-400); RDW Coefficient of Variation 18.9 % (11.5-14.5); Red Blood Count 3.22 M/uL (4.2-5.4); White Blood Count 8.61 K/uL (4.8-10.8)
[2021-07-21] MEDS: DOXYCYCLINE HYCLATE 100 MG CAP PO SCH ×2 (12:41→21:39)
--- NOTE | 2021-07-21 21:11 | Hospitalist Progress Note ---
Date of Service July 21, 2021 Assessment & Plan (1) Diarrhea in adult patient: (2) Bilateral lower leg cellulitis: (3) Acute worsening of stage 3 chronic kidney disease: (4) Hyperkalemia: (5) Hypocalcemia: (6) Chronic atrial fibrillation: (7) DM type 2 (diabetes mellitus, type 2): (8) Diastolic CHF: (9) Nocturnal hypoxemia: Plan: Present on admission with recurrent episodes of watery diarrhea Possible related to viral gastroenteritis CT abd/pelvis showed no bowel obstruction is seen.ingested metallic foreign body is noted in the cecum, and is new from 06/02/2021. Stool for C. difficile negative Diet advanced as tolerated Diarrhea improved after initiated Imodium prn Continue monitor electrolytes Bacteremia B/L LE cellulitis Xray of Tibia and fibula showed Soft tissue swelling with no acute bony abnormality identified. Received IV Azactam and doxycycline Blood culture grew gram positive cocci Wound culture staph species IV dapto was changed to Cefazolin IV blood culture on 07/20 grew gram-positive cocci Blood culture repeated today ECHO showed no evidence of vegetation ID on board recommended to continue Dapto Dapto was discontinued that pt was transition on cefazolin and doxycycline Will discuss with ID about final abx recommendation and duration Elevated creatine Kinase Possible related to Daptomycin Creatinine kinase peaked to 505, currently is trending down 466 Continue to hold statin Continue monitor CPK level Foreign Body in the colon CT abd/pelvis showed no bowel obstruction is seen.ingested metallic foreign body is noted in the cecum, and is new from 06/02/2021. Asymptomatic No sign of perforation or peritonitis Case discussed with gastro ( No official consult placed) recommended to follow up with KUB to monitor KUB showed no change in position of 3 metallic densities within the cecum which represent endoscopic clips. Normocytic Anemia Hemoglobin 8.3 today EGD and colonoscopy were performed in the last admission S/P EGD: Gastritis, multiple polyps in the stomach suggestive of fundic gland polyposis biopsy taken. S/P Colonoscopy: Hemorrhoids, perianal erythema, skin tag that appeared to be oozing slightly. Multiple sigmoid diverticula. Nonbleeding AVM in the ascending colon ablated. 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 DM type 2 (diabetes mellitus, type 2): Most recent Hba1c 7.4 On Lantus and NovoLog per protocol while hospitalized Continue monitor BS COPD (chronic obstructive pulmonary disease): Hypoxemic respiratory failure, chronic: CT showed Ground glass opacities within visualized portions of the right lung which favor an infectious process. Saturating well on chronic 2 L of oxygen Continue doxycycline No signs of acute exacerbation, continue home inhalers DVT prophylaxis: Coumadin on hold due to INR 4.5 CODE STATUS Full code Admission and Anticipated Discharge Date Admission Date: July 17, 2021 Subjective Patient was seen and examined for follow-up of diarrhea and lower extremity cellulitis Lying in bed with no acute distress She is having tenderness in the lower extremities from the legs wound ulcer Pt said that her diarrhea improved denies any chest pain, palpitation, dizziness, shortness of breath. Review of Systems Review of Systems: All systems reviewed & are unremarkable except as noted in Subjective Physical Exam Physical Exam: General- No acute distress Head- at raumatic Eyes- PER RL, EOMI, ENT- [place] pharynx clear Neck - supple, no JVD L ungs- clear to aus cultation Heart- r egular rhythm; no murmur Abdomen- no rmal bowel sounds, soft, nontender E xtremities- no ca lf tenderness, +ed byron, B/L LE wrappe d Neuro- alert, or iented x 3; PERRL, EOMI; no facial p alsy; no dysarthri a Skin- warm & dry Results & Data Results & Data ([facility]) Vital Signs (Past 12 Hours) Vital Signs Temp Pulse Resp BP BP Pulse Ox 07/21/21 20:33 100 H 18 97 07/21/21 19:51 36.8 C 107 H 20 124/65 96 07/21/21 16:11 36.9 C 87 20 123/78 95 07/21/21 14:52 81 18 94 07/21/21 11:06 83 18 93 07/21/21 11:00 36.2 C L 106 H 20 133/73 95 (1) Diastolic CHF Heart failure chronicity: acute on chronic Qualified Code(s): I50.33 - Acute on chronic diastolic (congestive) heart failure
[2021-07-21] MEDS: PANTOprazole 40 MG TAB PO SCH (21:40)
[2021-07-22] MEDS: ceFAZolin 2000MG 2,000 MG/15 ML SYR IV SCH ×3 (02:14→17:41)
[2021-07-22 07:20] LABS: Hematocrit (blood only) 30.5 % (37-47); Hemoglobin 8.9 g/dL (12.0-16.0); Mean Corpuscular Hemoglobin 25.5 pg (25-34); Mean Corpuscular Hgb Conc 29.2 g/dL (32-36); Mean Corpuscular Volume 87.4 fL (80-100); Mean Platelet Volume 10.6 fL (7.4-10.4); Platelet Count 165 K/uL (130-400); RDW Coefficient of Variation 18.9 % (11.5-14.5); RDW Standard Deviation 60.4 fL (36.4-46.3); Red Blood Count 3.49 M/uL (4.2-5.4); White Blood Count 6.59 K/uL (4.8-10.8)
[2021-07-22] MEDS: Albuterol HFA 8 GM Inhaler (Combivent Respimat P&T Subs) INH SCH ×4 (07:26→19:34)
[2021-07-22] MEDS: Ipratropium HFA Inhaler (Combivent Respimat P&T Subs) INH SCH ×4 (07:27→19:35)
[2021-07-22 07:30] LABS: INR 3.5 (0.9-1.1); Prothrombin Time 31.9 Seconds (9.0-12.0)
[2021-07-22 07:45] LABS: BUN Creatinine Ratio 24.7 (10-20); Calcium 7.8 mg/dl (8.5-10.1); Creatinine Clr Calc Pharmacy 56.9 ml/min; Est GFR (African American) 67.7 ml/min; Est GFR (Non-African American) 58.5 ml/min; Potassium 4.6 mmol/L (3.5-5.1)
[2021-07-22] MEDS: METOPROLOL TARTRATE 25 MG TAB PO SCH ×2 (08:37→20:47)
[2021-07-22] MEDS: FERROUS SULFATE 325 MG TAB PO SCH (08:37)
[2021-07-22] MEDS: INSULIN GLARGINE SOLOSTAR 100 UNITS/ML 3 ML PEN SC SCH (08:38)
[2021-07-22] MEDS: NYSTATIN POWDER 15GM BTL EXT SCH ×2 (08:39→20:47)
[2021-07-22] MEDS: FLUTICASONE/VILANTEROL 100/25MCG 14 PUFFS/INHALER INH SCH (08:39)
[2021-07-22] MEDS: INSULIN ASPART PER UNIT SC SCH ×4 (08:40→20:46)
[2021-07-22] MEDS: DOXYCYCLINE HYCLATE 100 MG CAP PO SCH ×2 (10:42→21:13)
--- NOTE | 2021-07-22 16:40 | Hospitalist Progress Note ---
Date of Service July 22, 2021 Assessment & Plan (1) Diarrhea in adult patient: (2) Bilateral lower leg cellulitis: (3) Acute worsening of stage 3 chronic kidney disease: (4) Hyperkalemia: (5) Hypocalcemia: (6) Chronic atrial fibrillation: (7) DM type 2 (diabetes mellitus, type 2): (8) Diastolic CHF: (9) Nocturnal hypoxemia: Plan: Present on admission with recurrent episodes of watery diarrhea Diarrhea Possible related to viral gastroenteritis CT abd/pelvis showed no bowel obstruction is seen.ingested metallic foreign body is noted in the cecum, and is new from 06/02/2021. Stool for C. difficile negative Diet advanced as tolerated Diarrhea improved after initiated Imodium prn Continue monitor electrolytes resolved Bacteremia B/L LE cellulitis Xray of Tibia and fibula showed Soft tissue swelling with no acute bony abnormality identified. Received IV Azactam and doxycycline Blood culture grew gram positive cocci Wound culture staph species IV dapto was changed to Cefazolin IV blood culture on 07/20 grew gram-positive cocci Blood culture on 07/21 no growth so far ECHO showed no evidence of vegetation ID on board recommended to continue Dapto Dapto was discontinued due to elevate CPK level, then was transition on cefazolin and doxycycline Will discuss with ID about final abx recommendation and duration if blood cx on 07/21 showed no growth Elevated creatine Kinase Possible related to Daptomycin Creatinine kinase peaked to 505, currently is trending down 466-->228 Continue to hold statin Foreign Body in the colon CT abd/pelvis showed no bowel obstruction is seen.ingested metallic foreign body is noted in the cecum, and is new from 06/02/2021. Asymptomatic No sign of perforation or peritonitis Case discussed with gastro ( No official consult placed) recommended to follow up with KUB to monitor KUB showed no change in position of 3 metallic densities within the cecum which represent endoscopic clips. Normocytic Anemia Hemoglobin 8.9 today EGD and colonoscopy were performed in the last admission S/P EGD: Gastritis, multiple polyps in the stomach suggestive of fundic gland polyposis biopsy taken. S/P Colonoscopy: Hemorrhoids, perianal erythema, skin tag that appeared to be oozing slightly. Multiple sigmoid diverticula. Nonbleeding AVM in the ascending colon ablated. 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 Denies any pain DM type 2 (diabetes mellitus, type 2): Most recent Hba1c 7.4 On Lantus and NovoLog per protocol while hospitalized Continue monitor BS COPD (chronic obstructive pulmonary disease): Hypoxemic respiratory failure, chronic: CT showed Ground glass opacities within visualized portions of the right lung which favor an infectious process. Saturating well on chronic 2 L of oxygen Continue doxycycline No signs of acute exacerbation, continue home inhalers DVT prophylaxis: Coumadin resume with INR 3.5 CODE STATUS Full code Admission and Anticipated Discharge Date Admission Date: July 17, 2021 Subjective Patient was seen and examined for follow-up of diarrhea and lower extremity cellulitis Sitting in chair with no acute distress eating She said that she feels ok denies any chest pain, palpitation, dizziness, shortness of breath. Review of Systems Review of Systems: All systems reviewed & are unremarkable except as noted in Subjective Physical Exam Physical Exam: General- No acute distress Head- at raumatic Eyes- PER RL, EOMI, ENT- [place] pharynx clear Neck - supple, no JVD L ungs- clear to aus cultation Heart- r egular rhythm; no murmur Abdomen- no rmal bowel sounds, soft, nontender E xtremities- no ca lf tenderness, +ed byron, +tenderness, +erythema superfic ial with skin open ing Neuro- alert , oriented x 3; PE RRL, EOMI; no faci al palsy; no dysar thria Skin- warm & dry Results & Data Results & Data ([facility]) Vital Signs (Past 12 Hours) Vital Signs Temp Pulse Resp BP Pulse Ox 07/22/21 15:08 82 22 95 07/22/21 11:08 36.4 C L 110 H 20 122/69 95 07/22/21 10:54 122 H 22 95 07/22/21 07:27 88 98 07/22/21 07:17 36.7 C 93 H 19 133/88 99 (1) Diastolic CHF Heart failure chronicity: acute on chronic Qualified Code(s): I50.33 - Acute on chronic diastolic (congestive) heart failure
[2021-07-22] MEDS ORDERED: WARFARIN SOD 2 MG TAB PO ONE (16:53)
[2021-07-22] MEDS: PANTOprazole 40 MG TAB PO SCH (20:48)
[2021-07-23] MEDS: ceFAZolin 2000MG 2,000 MG/15 ML SYR IV SCH ×3 (01:00→17:17)
[2021-07-23 06:04] LABS: Hematocrit (blood only) 30.9 % (37-47); Hemoglobin 9.1 g/dL (12.0-16.0); Mean Corpuscular Hemoglobin 25.8 pg (25-34); Mean Corpuscular Hgb Conc 29.4 g/dL (32-36); Mean Corpuscular Volume 87.5 fL (80-100); Mean Platelet Volume 10.9 fL (7.4-10.4); Platelet Count 179 K/uL (130-400); RDW Coefficient of Variation 18.6 % (11.5-14.5); RDW Standard Deviation 59.5 fL (36.4-46.3); Red Blood Count 3.53 M/uL (4.2-5.4)
[2021-07-23 06:23] LABS: INR 4.1 (0.9-1.1); Prothrombin Time 40.4 Seconds (9.0-12.0)
[2021-07-23 06:32] LABS: Calcium 7.9 mg/dl (8.5-10.1); Creatinine Clr Calc Pharmacy 59.1 ml/min; Est GFR (African American) 71.4 ml/min; Est GFR (Non-African American) 61.6 ml/min; Potassium 4.3 mmol/L (3.5-5.1)
[2021-07-23 06:52] LABS: Magnesium 0.9 mg/dl (1.7-2.4)
[2021-07-23] MEDS: Ipratropium HFA Inhaler (Combivent Respimat P&T Subs) INH SCH ×4 (07:19→19:31)
[2021-07-23] MEDS: Albuterol HFA 8 GM Inhaler (Combivent Respimat P&T Subs) INH SCH ×4 (07:19→19:30)
[2021-07-23] MEDS: FERROUS SULFATE 325 MG TAB PO SCH (07:57)
[2021-07-23] MEDS: METOPROLOL TARTRATE 25 MG TAB PO SCH ×2 (07:57→21:41)
[2021-07-23] MEDS: INSULIN GLARGINE SOLOSTAR 100 UNITS/ML 3 ML PEN SC SCH (07:58)
[2021-07-23] MEDS: INSULIN ASPART PER UNIT SC SCH ×4 (07:58→21:55)
[2021-07-23] MEDS: MAGNESIUM SULFATE / D5W 1 GM/100 ML BAG IV SCH ×2 (08:19→09:26)
[2021-07-23] MEDS: FLUTICASONE/VILANTEROL 100/25MCG 14 PUFFS/INHALER INH SCH (08:20)
[2021-07-23] MEDS: NYSTATIN POWDER 15GM BTL EXT SCH ×2 (08:20→21:41)
[2021-07-23] MEDS: DOXYCYCLINE HYCLATE 100 MG CAP PO SCH ×2 (10:36→21:40)
--- NOTE | 2021-07-23 15:24 | Hospitalist Progress Note ---
Date of Service July 23, 2021 Assessment & Plan (1) Diarrhea in adult patient: Plan: Present on admission with recurrent episodes of watery diarrhea Possible related to viral gastroenteritis CT abd/pelvis showed no bowel obstruction is seen.ingested metallic foreign body is noted in the cecum, and is new from 06/02/2021. Stool for C. difficile negative Diet advanced as tolerated Diarrhea improved after initiated Imodium prn Continue monitor electrolytes resolved (2) Bilateral lower leg cellulitis: Plan: Bacteremia secondary to B/L LE cellulitis Xray of Tibia and fibula showed Soft tissue swelling with no acute bony abnormality identified. Received IV Azactam and doxycycline Blood culture grew gram positive cocci Wound culture staph species IV dapto was changed to Cefazolin IV blood culture on 07/20 grew gram-positive cocci Blood culture on 07/21 no growth so far ECHO showed no evidence of vegetation ID on board recommended to continue Dapto Dapto was discontinued due to elevate CPK level, then was transition on cefazolin and doxycycline We will discuss with ID about duration and choice of antibiotic (3) Acute worsening of stage 3 chronic kidney disease: Plan: Acute on chronic kidney disease Resolved as of 07/23/2021 (4) Hyperkalemia: (5) Hypocalcemia: (6) Chronic atrial fibrillation: Plan: Chronic atrial fibrillation: 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 Saturating well on chronic 2 L of oxygen Continue doxycycline No signs of acute exacerbation, continue home inhalers Remains stable Plan: Elevated creatine Kinase Possible related to Daptomycin Creatinine kinase peaked to 505, currently is trending down 466-->228 Continue to hold statin Foreign Body in the colon CT abd/pelvis showed no bowel obstruction is seen.ingested metallic foreign body is noted in the cecum, and is new from 06/02/2021. Asymptomatic No sign of perforation or peritonitis Case discussed with gastro ( No official consult placed) recommended to follow up with KUB to monitor KUB showed no change in position of 3 metallic densities within the cecum which represent endoscopic clips. Normocytic Anemia Hemoglobin 8.9 today EGD and colonoscopy were performed in the last admission S/P EGD: Gastritis, multiple polyps in the stomach suggestive of fundic gland polyposis biopsy taken. S/P Colonoscopy: Hemorrhoids, perianal erythema, skin tag that appeared to be oozing slightly. Multiple sigmoid diverticula. Nonbleeding AVM in the ascending colon ablated. Received vitamin K Continue monitor CBC Elevated INR currently INR 3.5 Received Vit K Will resume coumadin No sign of active bleeding Continue monitor Electrolytes imbalance Calcium 7.8 today Continue Monitor electrolytes Right Shoulder pain Right shoulder CT showed no acute fracture or dislocation within the right shoulder.Moderate degenerative changes of the right shoulder. Denies any pain DVT prophylaxis: Coumadin resume with INR 3.5 CODE STATUS Full code Admission and Anticipated Discharge Date Admission Date: July 17, 2021 Subjective 07/23/2021 The patient was seen and examined in medical telemetry unit She has been feeling much better and only complains to have weakness Denies any significant pain in legs Denies any fever and/or chills and no nausea and or vomiting Review of Systems Review of Systems: All systems reviewed and are unremarkable except as noted below Physical Exam Physical Exam: Lying in bed comfortably Constitutional: well developed, well nourished and + obese; not ill appearing Eyes: PERRL, conjunctivae normal, anicteric sclerae ENMT: external ear and nose normal, oropharynx normal Neck: trachea midline, no thyromegaly Respiratory: no respiratory distress Auscultation: lungs clear to auscultation bilaterally Cardiovascular: Rate/Rhythm: regular rate and regular rhythm; not tachycardic Heart Sounds: normal S1 and normal S2; no murmur Extremities: + edema (Trace edema bilaterally) Gastrointestinal (Abdomen): Inspection/Auscultation: normal bowel sounds; abdomen not distended Percussion/Palpation: abdomen soft; abdomen nontender Musculoskeletal: No acute arthritis in any joint Skin: Bilateral lower leg cellulitis Results & Data Results & Data ([facility]) Vital Signs (Past 12 Hours) Vital Signs Temp Pulse Resp BP Pulse Ox 03/02/22 11:28 36.6 C 90 20 124/82 98 07/23/21 11:13 86 20 96 07/23/21 07:22 36.8 C 100 H 20 141/71 H 98 07/23/21 07:20 83 22 99 Laboratory Results Short CBC 07/23/21 Range/Units 05:29 WBC 6.90 (4.8-10.8) K/uL Hgb 9.1 L (12.0-16.0) g/dL Hct 30.9 L (37-47) % Plt Count 179 (130-400) K/uL BMP 07/23/21 05:29 Sodium 140 Potassium 4.3 Chloride 110 H Carbon Dioxide 23 BUN 24 H Creatinine 0.89 Glucose 97 Calcium 7.9 L Medications Administered Current Inpatient Medications Acetaminophen (Acetaminophen 325 Mg Tab) 650 mg PO Q4H PRN PRN Reason: Pain or Fever Stop: 08/16/21 23:28 Albuterol (Albuterol Hfa 8 Gm Inhaler (Combivent Respimat P&T Subs)) 1 puffs INH QIDR [facility] Stop: 08/17/21 06:59 Last Admin: 07/23/21 11:13 Dose: 1 puffs Documented by: Dextrose (Dextrose 50% 50 Ml Syringe) 25 - 50 ml IV UD PRN; Protocol PRN Reason: Hypoglycemia Protocol Stop: 08/16/21 23:28 Doxycycline Hyclate (Doxycycline Hyclate 100 Mg Cap) 100 mg PO BID@1000,2200 [facility] Stop: 07/25/21 09:59 Last Admin: 07/23/21 10:36 Dose: 100 mg Documented by: Ferrous Sulfate (Ferrous Sulfate 325 Mg Tab) 325 mg PO QAM [facility] Stop: 08/17/21 08:59 Last Admin: 07/23/21 07:57 Dose: 325 mg Documented by: Fluticasone/Vilanterol (Fluticasone/Vilanterol 100/25mcg 14 Puffs/Inhaler) 1 puffs INH DAILY [facility] Stop: 08/17/21 08:59 Last Admin: 07/23/21 08:20 Dose: 1 puffs Documented by: Glucagon (Glucagon For Inj 1 Mg Vial) 1 mg SQ UD PRN; Protocol PRN Reason: Hypoglycemia Protocol Stop: 08/16/21 23:28 Glucose (Glucose 10 Tabs/Tube) 4 - 8 tabs PO UD PRN; Protocol PRN Reason: Hypoglycemia Protocol Stop: 08/16/21 23:28 Glucose (Glucose 40% Gel 15 Gm Tube) 15 - 30 gm PO UD PRN; Protocol PRN Reason: Hypoglycemia Protocol Stop: 08/16/21 23:28 Promethazine HCl 12.5 mg/ (Sodium Chloride) 50.5 mls @ 202 mls/hr IV Q6H PRN PRN Reason: Nausea And Vomiting Stop: 08/16/21 23:28 Cefazolin Sodium (Ancef 2000mg) 2,000 mg in 15 mls @ 3.75 mls/min IV Q8H [facility] Stop: 08/03/21 09:59 Last Admin: 07/23/21 10:35 Dose: 3.75 mls/min Documented by: Insulin Aspart (Insulin Aspart Per Unit) 0 units SC ACHS [facility] Stop: 08/16/21 23:28 Last Admin: 07/23/21 12:20 Dose: Not Given Documented by: Insulin Glargine (Insulin Glargine Solostar 100 Units/Ml 3 Ml Pen) 5 units SC DAILY [facility] Stop: 08/17/21 08:59 Last Admin: 07/23/21 07:58 Dose: 5 units Documented by: Ipratropium [place] (Ipratropium Hfa Inhaler (Combivent Respimat P&T Subs)) 1 puffs INH QIDR [facility] Stop: 08/17/21 06:59 Last Admin: 07/23/21 11:12 Dose: 1 puffs Documented by: Loperamide HCl (Loperamide Hcl 2 Mg Cap) 2 mg PO Q8H PRN PRN Reason: Diarrhea Stop: 08/17/21 12:17 Last Admin: 07/18/21 12:41 Dose: 2 mg Documented by: Metoprolol Tartrate (Metoprolol Tartrate 25 Mg Tab) 25 mg PO BID [facility] Stop: 08/17/21 08:59 Last Admin: 07/23/21 07:57 Dose: 25 mg Documented by: Miscellaneous (Carbohydrates For Hypoglycemia ) 15 - 30 gm PO UD PRN PRN Reason: Hypoglycemia Protocol Stop: 08/16/21 23:28 Nystatin (Nystatin Powder 15gm Btl) 1 appln EXT BID [facility] Stop: 08/18/21 11:44 Last Admin: 07/23/21 08:20 Dose: 1 appln Documented by: Pantoprazole Sodium (Pantoprazole 40 Mg Tab) [address] [facility] Stop: 08/17/21 20:59 Last Admin: 07/22/21 20:48 Dose: 40 mg Documented by: Simvastatin (Simvastatin 20 Mg Tab) [address] [facility] Stop: 08/17/21 20:59 Last Admin: 07/18/21 21:04 Dose: 20 mg Documented by: Warfarin Sodium (Warfarin Sod 2 Mg Tab) 2 mg PO DAILY@1600 [facility] Stop: 08/22/21 15:59 (1) Diastolic CHF Heart failure chronicity: acute on chronic Qualified Code(s): I50.33 - Acute on chronic diastolic (congestive) heart failure (2) COPD (chronic obstructive pulmonary disease) COPD type: COPD with acute exacerbation Qualified Code(s): J44.1 - Chronic obstructive pulmonary disease with (acute) exacerbation
[2021-07-23] MEDS: WARFARIN SOD 2 MG TAB PO SCH (16:53)
[2021-07-23] MEDS: PANTOprazole 40 MG TAB PO SCH (21:41)
[2021-07-24] MEDS: ceFAZolin 2000MG 2,000 MG/15 ML SYR IV SCH ×3 (02:20→17:34)
[2021-07-24] MEDS: Ipratropium HFA Inhaler (Combivent Respimat P&T Subs) INH SCH ×4 (07:09→19:40)
[2021-07-24] MEDS: Albuterol HFA 8 GM Inhaler (Combivent Respimat P&T Subs) INH SCH ×4 (07:09→19:40)
[2021-07-24 07:55] LABS: Basophils # (auto) 0.03 K/uL (0-0.2); Basophils % (auto) 0.5 %; Eosinophils % (auto) 6.3 %; Hemoglobin 9.2 g/dL (12.0-16.0); Immature Granulocytes # (auto) 0.04 K/uL (0.00-0.02); Immature Granulocytes % (auto) 0.6 %; Lymphocytes # (auto) 1.02 K/uL (1.2-3.4); Mean Corpuscular Hemoglobin 25.8 pg (25-34); Mean Corpuscular Hgb Conc 29.7 g/dL (32-36); Mean Corpuscular Volume 87.1 fL (80-100); Mean Platelet Volume 10.4 fL (7.4-10.4); Monocytes # (auto) 0.36 K/uL (0.11-0.59); Monocytes % (auto) 5.6 %; Neutrophils # (auto) 4.54 K/uL (1.4-6.5); Platelet Count 192 K/uL (130-400); RDW Coefficient of Variation 18.5 % (11.5-14.5); RDW Standard Deviation 59.3 fL (36.4-46.3); Red Blood Count 3.56 M/uL (4.2-5.4); White Blood Count 6.39 K/uL (4.8-10.8)
[2021-07-24 08:10] LABS: INR 4.7 (0.9-1.1); Prothrombin Time 46.1 Seconds (9.0-12.0)
[2021-07-24 08:17] LABS: Anion Gap 4 (3-11); BUN Creatinine Ratio 23.3 (10-20); Blood Urea Nitrogen 20 mg/dl (6-23); Calcium 8.1 mg/dl (8.5-10.1); Carbon Dioxide 26 mmol/L (21-32); Chloride 109 mmol/L (98-107); Creatinine Clr Calc Pharmacy 61.2 ml/min; Est GFR (African American) 74.5 ml/min; Est GFR (Non-African American) 64.3 ml/min; Glucose 115 mg/dl (70-99(Fasting)); Potassium 4.5 mmol/L (3.5-5.1); Sodium 139 mmol/L (136-145)
[2021-07-24 08:18] LABS: Alanine Aminotransferase < 3 U/L (7-52); Albumin Globulin Ratio 0.9 (0.9-2); Albumin Level 2.8 gm/dl (3.4-5.0); Alkaline Phosphatase 236 U/L (34-104); Aspartate Aminotransferase 18 U/L (13-39); Bilirubin,Total 0.4 mg/dl (0.2-1.0); Globulin 3.1 gm/dl (2.5-4.0); Total Protein 5.9 gm/dl (6.0-8.3)
[2021-07-24] MEDS: INSULIN ASPART PER UNIT SC SCH ×4 (08:56→23:44)
[2021-07-24] MEDS: FERROUS SULFATE 325 MG TAB PO SCH (09:03)
[2021-07-24] MEDS: INSULIN GLARGINE SOLOSTAR 100 UNITS/ML 3 ML PEN SC SCH (09:05)
[2021-07-24] MEDS: METOPROLOL TARTRATE 25 MG TAB PO SCH ×2 (09:06→21:41)
[2021-07-24] MEDS: NYSTATIN POWDER 15GM BTL EXT SCH ×2 (09:07→21:41)
[2021-07-24] MEDS: DOXYCYCLINE HYCLATE 100 MG CAP PO SCH ×2 (10:43→22:11)
[2021-07-24] MEDS: FLUTICASONE/VILANTEROL 100/25MCG 14 PUFFS/INHALER INH SCH (10:46)
--- NOTE | 2021-07-24 15:40 | Hospitalist Progress Note ---
Date of Service July 24, 2021 Assessment & Plan (1) Diarrhea in adult patient: Plan: Present on admission with recurrent episodes of watery diarrhea Possible related to viral gastroenteritis CT abd/pelvis showed no bowel obstruction is seen.ingested metallic foreign body is noted in the cecum, and is new from 06/02/2021. Stool for C. difficile negative Diet advanced as tolerated Diarrhea improved after initiated Imodium prn Continue monitor electrolytes resolved (2) Bilateral lower leg cellulitis: Plan: Bacteremia secondary to B/L LE cellulitis Xray of Tibia and fibula showed Soft tissue swelling with no acute bony abnormality identified. Received IV Azactam and doxycycline Blood culture grew gram positive cocci Wound culture staph species IV dapto was changed to Cefazolin IV blood culture on 07/20 grew gram-positive cocci Blood culture on 07/21 no growth so far ECHO showed no evidence of vegetation ID on board recommended to continue Dapto Dapto was discontinued due to elevate CPK level, then was transition on cefazolin and doxycycline We will discuss with ID about duration and choice of antibiotic Discussed with ID specialist in [place] and was advised that if the cellulitis is improved there is no need to continue any more antibiotic The wounds are much better and there is no evidence of cellulitis but still has 2 or 3 scattered ulcerations in the leg We will continue current antibiotic and discontinue on discharge Continue dressing as per wound care (3) Acute worsening of stage 3 chronic kidney disease: Plan: Acute on chronic kidney disease Resolved as of 07/23/2021 (4) Hyperkalemia: (5) Hypocalcemia: (6) Chronic atrial fibrillation: Plan: Chronic atrial fibrillation: 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 Rate controlled on metoprolol Monitor INR daily-4.1 on 07/23/21 still elevated at more than 4 (7) DM type 2 (diabetes mellitus, type 2): Plan: DM type 2 (diabetes mellitus, type 2): Most recent Hba1c 7.4 On Lantus and NovoLog per protocol while hospitalized Continue monitor BS (8) Diastolic CHF: Plan: No signs and/or symptoms of fluid overload (9) Nocturnal hypoxemia: (10) COPD (chronic obstructive pulmonary disease): Plan: COPD (chronic obstructive pulmonary disease): Hypoxemic respiratory failure, chronic: CT showed Ground glass opacities within visualized portions of the right lung which favor an infectious process. Saturating well on chronic 2 L of oxygen Continue doxycycline No signs of acute exacerbation, continue home inhalers Remains stable Plan: Elevated creatine Kinase Possible related to Daptomycin Creatinine kinase peaked to 505, currently is trending down 466-->228 Continue to hold statin Foreign Body in the colon CT abd/pelvis showed no bowel obstruction is seen.ingested metallic foreign body is noted in the cecum, and is new from 06/02/2021. Asymptomatic No sign of perforation or peritonitis Case discussed with gastro ( No official consult placed) recommended to follow up with KUB to monitor KUB showed no change in position of 3 metallic densities within the cecum which represent endoscopic clips. Normocytic Anemia Hemoglobin 8.9 today EGD and colonoscopy were performed in the last admission S/P EGD: Gastritis, multiple polyps in the stomach suggestive of fundic gland polyposis biopsy taken. S/P Colonoscopy: Hemorrhoids, perianal erythema, skin tag that appeared to be oozing slightly. Multiple sigmoid diverticula. Nonbleeding AVM in the ascending colon ablated. Received vitamin K Continue monitor CBC Elevated INR currently INR 3.5 Received Vit K Will resume coumadin No sign of active bleeding Continue monitor Electrolytes imbalance Calcium 7.8 today Continue Monitor electrolytes Right Shoulder pain Right shoulder CT showed no acute fracture or dislocation within the right shoulder.Moderate degenerative changes of the right shoulder. Denies any pain DVT prophylaxis: Coumadin is on hold CODE STATUS Full code Admission and Anticipated Discharge Date Admission Date: July 17, 2021 Subjective 07/23/2021 The patient was seen and examined in medical telemetry unit She has been feeling much better and only complains to have weakness Denies any significant pain in legs Denies any fever and/or chills and no nausea and or vomiting 07/24/2021 The patient was seen and examined in medical telemetry unit She has been stable without any acute symptoms Her leg wounds are much better Review of Systems Review of Systems: All systems reviewed and are unremarkable except as noted below Physical Exam Physical Exam: Lying in bed comfortably Constitutional: well developed, well nourished and + obese; not ill appearing Eyes: PERRL, conjunctivae normal, anicteric sclerae ENMT: external ear and nose normal, oropharynx normal Neck: trachea midline, no thyromegaly Respiratory: no respiratory distress Auscultation: lungs clear to auscultation bilaterally Cardiovascular: Rate/Rhythm: regular rate and regular rhythm; not tachycardic Heart Sounds: normal S1 and normal S2; no murmur Extremities: + edema (Trace edema bilaterally) Gastrointestinal (Abdomen): Inspection/Auscultation: normal bowel sounds; abdomen not distended Percussion/Palpation: abdomen soft; abdomen nontender Musculoskeletal: No acute arthritis in any joint Neurologic: Alert, awake and oriented x3. Generally weak but no focal sensory or motor deficit appreciated Results & Data Results & Data ([facility]) Vital Signs (Past 12 Hours) Vital Signs Temp Pulse Pulse Resp BP Pulse Ox 07/24/21 15:19 93 H 07/24/21 15:05 36.6 C 86 20 133/87 94 07/24/21 14:27 77 20 95 07/24/21 11:23 36.6 C 92 H 16 131/68 93 07/24/21 11:19 99 H 18 95 07/24/21 08:08 93 H 07/24/21 07:42 36.5 C 97 H 16 136/74 99 07/24/21 07:09 93 H 18 98 07/24/21 04:00 36.4 C L 100 H 18 121/79 97 Laboratory Results Short CBC 07/24/21 Range/Units 07:36 WBC 6.39 (4.8-10.8) K/uL Hgb 9.2 L (12.0-16.0) g/dL Hct 31.0 L (37-47) % Plt Count 192 (130-400) K/uL BMP 07/24/21 07:36 Sodium 139 Potassium 4.5 Chloride 109 H Carbon Dioxide 26 BUN 20 Creatinine 0.86 Glucose 115 H Calcium 8.1 L Liver Function 07/24/21 Range/Units 07:36 Total Bilirubin 0.4 (0.2-1.0) mg/dl AST 18 (13-39) U/L ALT < 3 L (7-52) U/L Alkaline Phosphatase 236 H (34-104) U/L Albumin 2.8 L (3.4-5.0) gm/dl Medications Administered Current Inpatient Medications Acetaminophen (Acetaminophen 325 Mg Tab) 650 mg PO Q4H PRN PRN Reason: Pain or Fever Stop: 08/16/21 23:28 Albuterol (Albuterol Hfa 8 Gm Inhaler (Combivent Respimat P&T Subs)) 1 puffs INH QIDR [facility] Stop: 08/17/21 06:59 Last Admin: 07/24/21 14:25 Dose: 1 puffs Documented by: Dextrose (Dextrose 50% 50 Ml Syringe) 25 - 50 ml IV UD PRN; Protocol PRN Reason: Hypoglycemia Protocol Stop: 08/16/21 23:28 Doxycycline Hyclate (Doxycycline Hyclate 100 Mg Cap) 100 mg PO BID@1000,2200 [facility] Stop: 07/25/21 09:59 Last Admin: 07/24/21 10:43 Dose: 100 mg Documented by: Ferrous Sulfate (Ferrous Sulfate 325 Mg Tab) 325 mg PO QAM [facility] Stop: 08/17/21 08:59 Last Admin: 07/24/21 09:03 Dose: 325 mg Documented by: Fluticasone/Vilanterol (Fluticasone/Vilanterol 100/25mcg 14 Puffs/Inhaler) 1 puffs INH DAILY [facility] Stop: 08/17/21 08:59 Last Admin: 07/24/21 10:46 Dose: Not Given Documented by: Glucagon (Glucagon For Inj 1 Mg Vial) 1 mg SQ UD PRN; Protocol PRN Reason: Hypoglycemia Protocol Stop: 08/16/21 23:28 Glucose (Glucose 10 Tabs/Tube) 4 - 8 tabs PO UD PRN; Protocol PRN Reason: Hypoglycemia Protocol Stop: 08/16/21 23:28 Glucose (Glucose 40% Gel 15 Gm Tube) 15 - 30 gm PO UD PRN; Protocol PRN Reason: Hypoglycemia Protocol Stop: 08/16/21 23:28 Promethazine HCl 12.5 mg/ (Sodium Chloride) 50.5 mls @ 202 mls/hr IV Q6H PRN PRN Reason: Nausea And Vomiting Stop: 08/16/21 23:28 Cefazolin Sodium (Ancef 2000mg) 2,000 mg in 15 mls @ 3.75 mls/min IV Q8H [facility] Stop: 08/03/21 09:59 Last Admin: 07/24/21 10:44 Dose: 3.75 mls/min Documented by: Insulin Aspart (Insulin Aspart Per Unit) 0 units SC ACHS [facility] Stop: 08/16/21 23:28 Last Admin: 07/24/21 13:11 Dose: 2 units Documented by: Insulin Glargine (Insulin Glargine Solostar 100 Units/Ml 3 Ml Pen) 5 units SC DAILY [facility] Stop: 08/17/21 08:59 Last Admin: 07/24/21 09:05 Dose: 5 units Documented by: Ipratropium [place] (Ipratropium Hfa Inhaler (Combivent Respimat P&T Subs)) 1 puffs INH QIDR [facility] Stop: 08/17/21 06:59 Last Admin: 07/24/21 14:26 Dose: 1 puffs Documented by: Loperamide HCl (Loperamide Hcl 2 Mg Cap) 2 mg PO Q8H PRN PRN Reason: Diarrhea Stop: 08/17/21 12:17 Last Admin: 07/18/21 12:41 Dose: 2 mg Documented by: Metoprolol Tartrate (Metoprolol Tartrate 25 Mg Tab) 25 mg PO BID [facility] Stop: 08/17/21 08:59 Last Admin: 07/24/21 09:06 Dose: 25 mg Documented by: Miscellaneous (Carbohydrates For Hypoglycemia ) 15 - 30 gm PO UD PRN PRN Reason: Hypoglycemia Protocol Stop: 08/16/21 23:28 Nystatin (Nystatin Powder 15gm Btl) 1 appln EXT BID [facility] Stop: 08/18/21 11:44 Last Admin: 07/24/21 09:07 Dose: 1 appln Documented by: Pantoprazole Sodium (Pantoprazole 40 Mg Tab) 40 mg [address] [facility] Stop: 08/17/21 20:59 Last Admin: 07/23/21 21:41 Dose: 40 mg Documented by: Simvastatin (Simvastatin 20 Mg Tab) 20 mg PO [facility] Stop: 08/17/21 20:59 Last Admin: 07/18/21 21:04 Dose: 20 mg Documented by: Warfarin Sodium (Warfarin Sod 2 Mg Tab) 2 mg PO DAILY@1600 [facility] Stop: 08/22/21 15:59 Last Admin: 07/23/21 16:53 Dose: Not Given Documented by: (1) Diastolic CHF Heart failure chronicity: acute on chronic Qualified Code(s): I50.33 - Acute on chronic diastolic (congestive) heart failure (2) COPD (chronic obstructive pulmonary disease) COPD type: COPD with acute exacerbation Qualified Code(s): J44.1 - Chronic obstructive pulmonary disease with (acute) exacerbation
[2021-07-24] MEDS: PANTOprazole 40 MG TAB PO SCH (21:42)
[2021-07-25] MEDS: ceFAZolin 2000MG 2,000 MG/15 ML SYR IV SCH ×3 (02:05→18:07)
[2021-07-25] MEDS: Ipratropium HFA Inhaler (Combivent Respimat P&T Subs) INH SCH ×4 (07:12→19:23)
[2021-07-25] MEDS: Albuterol HFA 8 GM Inhaler (Combivent Respimat P&T Subs) INH SCH ×4 (07:12→19:23)
[2021-07-25] MEDS: FLUTICASONE/VILANTEROL 100/25MCG 14 PUFFS/INHALER INH SCH (08:18)
[2021-07-25] MEDS: METOPROLOL TARTRATE 25 MG TAB PO SCH ×2 (08:18→20:34)
[2021-07-25] MEDS: FERROUS SULFATE 325 MG TAB PO SCH (08:18)
[2021-07-25] MEDS: INSULIN GLARGINE SOLOSTAR 100 UNITS/ML 3 ML PEN SC SCH (08:19)
[2021-07-25] MEDS: NYSTATIN POWDER 15GM BTL EXT SCH ×3 (08:19→20:38)
[2021-07-25] MEDS: INSULIN ASPART PER UNIT SC SCH ×4 (08:27→20:35)
--- NOTE | 2021-07-25 13:28 | Hospitalist Progress Note ---
Date of Service July 25, 2021 Assessment & Plan (1) Bilateral lower leg cellulitis: Plan: Bacteremia secondary to B/L LE cellulitis and Sepsis on admission, has been treated and resolving now Xray of Tibia and fibula showed Soft tissue swelling with no acute bony abnormality identified. Received IV Azactam and doxycycline Blood culture grew gram positive cocci Wound culture staph species IV dapto was changed to Cefazolin IV blood culture on 07/20 grew gram-positive cocci Blood culture on 07/21 no growth so far ECHO showed no evidence of vegetation ID on board recommended to continue Dapto Dapto was discontinued due to elevate CPK level, then was transition on cefazolin and doxycycline We will discuss with ID about duration and choice of antibiotic Discussed with ID specialist in [place] and was advised that if the cellulitis is improved there is no need to continue any more antibiotic The wounds are much better and there is no evidence of cellulitis but still has 2 or 3 scattered ulcerations in the leg We will continue current antibiotic and discontinue on discharge Continue with the wound care (2) Diarrhea in adult patient: Plan: Present on admission with recurrent episodes of watery diarrhea Possible related to viral gastroenteritis CT abd/pelvis showed no bowel obstruction is seen.ingested metallic foreign body is noted in the cecum, and is new from 06/02/2021. Stool for C. 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 Rate controlled on metoprolol Monitor INR daily-4.1 on 07/23/21 still elevated at more than 4 INR is pending for today (7) DM type 2 (diabetes mellitus, type 2): Plan: DM type 2 (diabetes mellitus, type 2): Most recent Hba1c 7.4 On Lantus and NovoLog per protocol while hospitalized Continue monitor BS (8) Diastolic CHF: Plan: No signs and/or symptoms of fluid overload (9) Nocturnal hypoxemia: (10) COPD (chronic obstructive pulmonary disease): Plan: COPD (chronic obstructive pulmonary disease): Hypoxemic respiratory failure, chronic: CT showed Ground glass opacities within visualized portions of the right lung which favor an infectious process. Saturating well on chronic 2 L of oxygen Continue doxycycline No signs of acute exacerbation, continue home inhalers Remains stable Plan: Elevated creatine Kinase Possible related to Daptomycin Creatinine kinase peaked to 505, currently is trending down 466-->228 Continue to hold statin Foreign Body in the colon CT abd/pelvis showed no bowel obstruction is seen.ingested metallic foreign body is noted in the cecum, and is new from 06/02/2021. Asymptomatic No sign of perforation or peritonitis Case discussed with gastro ( No official consult placed) recommended to follow up with KUB to monitor KUB showed no change in position of 3 metallic densities within the cecum which represent endoscopic clips. Normocytic Anemia Hemoglobin 8.9 today EGD and colonoscopy were performed in the last admission S/P EGD: Gastritis, multiple polyps in the stomach suggestive of fundic gland polyposis biopsy taken. S/P Colonoscopy: Hemorrhoids, perianal erythema, skin tag that appeared to be oozing slightly. Multiple sigmoid diverticula. Nonbleeding AVM in the ascending colon ablated. Received vitamin K Continue monitor CBC Elevated INR currently INR 3.5 Received Vit K Will resume coumadin No sign of active bleeding Continue monitor Electrolytes imbalance Calcium 7.8 today Continue Monitor electrolytes Right Shoulder pain Right shoulder CT showed no acute fracture or dislocation within the right shoulder.Moderate degenerative changes of the right shoulder. Denies any pain DVT prophylaxis: Coumadin is on hold CODE STATUS Full code Awaiting placement Admission and Anticipated Discharge Date Admission Date: July 17, 2021 Subjective 07/23/2021 The patient was seen and examined in medical telemetry unit She has been feeling much better and only complains to have weakness Denies any significant pain in legs Denies any fever and/or chills and no nausea and or vomiting 07/24/2021 The patient was seen and examined in medical telemetry unit She has been stable without any acute symptoms Her leg wounds are much better 07/25/2021 Patient was seen and examined in medical telemetry unit She has been feeling much better and waiting to be placed She denies any significant symptoms Awaiting placement Review of Systems Review of Systems: All systems reviewed and are unremarkable except as noted below Physical Exam Physical Exam: Sitting on a chair without any acute distress Constitutional: well developed, well nourished and + obese; not ill appearing Eyes: PERRL, conjunctivae normal, anicteric sclerae ENMT: external ear and nose normal, oropharynx normal Neck: trachea midline, no thyromegaly Respiratory: no respiratory distress Auscultation: lungs clear to auscultation bilaterally Cardiovascular: Rate/Rhythm: regular rate and regular rhythm; not tachycardic Heart Sounds: normal S1 and normal S2; no murmur Extremities: + edema (Trace edema bilaterally) Gastrointestinal (Abdomen): Inspection/Auscultation: normal bowel sounds; abdomen not distended Percussion/Palpation: abdomen soft; abdomen nontender Musculoskeletal: Extremities: + lower extremity abnormal to inspection (Chronic skin changes with few areas of ulceration) Bilateral Neurologic: moves all extremities; no focal motor deficits Results & Data Results & Data ([facility]) Vital Signs (Past 12 Hours) Vital Signs Temp Pulse Pulse Pulse Resp BP Pulse Ox 07/25/21 10:44 88 20 96 07/25/21 10:43 36.5 C 95 H 17 122/66 97 07/25/21 08:04 36.5 C 83 17 132/80 94 07/25/21 07:14 36.9 C 97 H 20 142/86 H 94 07/25/21 07:12 93 H 18 96 07/25/21 06:15 99 H 07/25/21 03:59 36.6 C 82 18 135/85 93 Medications Administered Current Inpatient Medications Acetaminophen (Acetaminophen 325 Mg Tab) 650 mg PO Q4H PRN PRN Reason: Pain or Fever Stop: 08/16/21 23:28 Albuterol (Albuterol Hfa 8 Gm Inhaler (Combivent Respimat P&T Subs)) 1 puffs INH QIDR [facility] Stop: 08/17/21 06:59 Last Admin: 07/25/21 10:43 Dose: 1 puffs Documented by: Dextrose (Dextrose 50% 50 Ml Syringe) 25 - 50 ml IV UD PRN; Protocol PRN Reason: Hypoglycemia Protocol Stop: 08/16/21 23:28 Ferrous Sulfate (Ferrous Sulfate 325 Mg Tab) 325 mg PO QAM [facility] Stop: 08/17/21 08:59 Last Admin: 07/25/21 08:18 Dose: 325 mg Documented by: Fluticasone/Vilanterol (Fluticasone/Vilanterol 100/25mcg 14 Puffs/Inhaler) 1 puffs INH DAILY [facility] Stop: 08/17/21 08:59 Last Admin: 07/25/21 08:18 Dose: 1 puffs Documented by: Glucagon (Glucagon For Inj 1 Mg Vial) 1 mg SQ UD PRN; Protocol PRN Reason: Hypoglycemia Protocol Stop: 08/16/21 23:28 Glucose (Glucose 10 Tabs/Tube) 4 - 8 tabs PO UD PRN; Protocol PRN Reason: Hypoglycemia Protocol Stop: 08/16/21 23:28 Glucose (Glucose 40% Gel 15 Gm Tube) 15 - 30 gm PO UD PRN; Protocol PRN Reason: Hypoglycemia Protocol Stop: 08/16/21 23:28 Promethazine HCl 12.5 mg/ (Sodium Chloride) 50.5 mls @ 202 mls/hr IV Q6H PRN PRN Reason: Nausea And Vomiting Stop: 08/16/21 23:28 Cefazolin Sodium (Ancef 2000mg) 2,000 mg in 15 mls @ 3.75 mls/min IV Q8H [facility] Stop: 08/03/21 09:59 Last Admin: 07/25/21 09:30 Dose: 3.75 mls/min Documented by: Insulin Aspart (Insulin Aspart Per Unit) 0 units SC ACHS [facility] Stop: 08/16/21 23:28 Last Admin: 07/25/21 13:21 Dose: 2 units Documented by: Insulin Glargine (Insulin Glargine Solostar 100 Units/Ml 3 Ml Pen) 5 units SC DAILY [facility] Stop: 08/17/21 08:59 Last Admin: 07/25/21 08:19 Dose: 5 units Documented by: Ipratropium [place] (Ipratropium Hfa Inhaler (Combivent Respimat P&T Subs)) 1 puffs INH QIDR [facility] Stop: 08/17/21 06:59 Last Admin: 07/25/21 10:43 Dose: 1 puffs Documented by: Loperamide HCl (Loperamide Hcl 2 Mg Cap) 2 mg PO Q8H PRN PRN Reason: Diarrhea Stop: 08/17/21 12:17 Last Admin: 07/18/21 12:41 Dose: 2 mg Documented by: Metoprolol Tartrate (Metoprolol Tartrate 25 Mg Tab) 25 mg PO BID [facility] Stop: 08/17/21 08:59 Last Admin: 07/25/21 08:18 Dose: 25 mg Documented by: Miscellaneous (Carbohydrates For Hypoglycemia ) 15 - 30 gm PO UD PRN PRN Reason: Hypoglycemia Protocol Stop: 08/16/21 23:28 Nystatin (Nystatin Powder 15gm Btl) 1 appln EXT BID [facility] Stop: 08/18/21 11:44 Last Admin: 07/25/21 08:19 Dose: 1 appln Documented by: Pantoprazole Sodium (Pantoprazole 40 Mg Tab) 40 mg PO HS [facility] Stop: 08/17/21 20:59 Last Admin: 07/24/21 21:42 Dose: 40 mg Documented by: Simvastatin (Simvastatin 20 Mg Tab) 20 mg PO HS [facility] Stop: 08/17/21 20:59 Last Admin: 07/18/21 21:04 Dose: 20 mg Documented by: Warfarin Sodium (Warfarin Sod 2 Mg Tab) 2 mg PO DAILY@1600 [facility] Stop: 08/22/21 15:59 Last Admin: 07/23/21 16:53 Dose: Not Given Documented by: (1) Diastolic CHF Heart failure chronicity: acute on chronic Qualified Code(s): I50.33 - Acute on chronic diastolic (congestive) heart failure (2) COPD (chronic obstructive pulmonary disease) COPD type: COPD with acute exacerbation Qualified Code(s): J44.1 - Chronic obstructive pulmonary disease with (acute) exacerbation
[2021-07-25 14:39] LABS: INR 3.9 (0.9-1.1); Prothrombin Time 38.5 Seconds (9.0-12.0)
[2021-07-25] MEDS: WARFARIN SOD 2 MG TAB PO SCH (16:04)
[2021-07-25] MEDS: PANTOprazole 40 MG TAB PO SCH (20:34)
[2021-07-26] MEDS: ceFAZolin 2000MG 2,000 MG/15 ML SYR IV SCH ×3 (01:48→15:25)
[2021-07-26 07:27] LABS: INR 3.4 (0.9-1.1); Prothrombin Time 33.7 Seconds (9.0-12.0)
[2021-07-26] MEDS: Albuterol HFA 8 GM Inhaler (Combivent Respimat P&T Subs) INH SCH ×4 (07:58→19:21)
[2021-07-26] MEDS: Ipratropium HFA Inhaler (Combivent Respimat P&T Subs) INH SCH ×4 (07:59→19:21)
[2021-07-26] MEDS: FERROUS SULFATE 325 MG TAB PO SCH (08:11)
[2021-07-26] MEDS: METOPROLOL TARTRATE 25 MG TAB PO SCH ×2 (08:11→20:45)
[2021-07-26] MEDS: FLUTICASONE/VILANTEROL 100/25MCG 14 PUFFS/INHALER INH SCH (08:12)
[2021-07-26] MEDS: NYSTATIN POWDER 15GM BTL EXT SCH ×2 (08:13→20:46)
[2021-07-26] MEDS: INSULIN ASPART PER UNIT SC SCH ×4 (09:07→20:44)
[2021-07-26] MEDS: INSULIN GLARGINE SOLOSTAR 100 UNITS/ML 3 ML PEN SC SCH (09:09)
--- NOTE | 2021-07-26 14:06 | Hospitalist Progress Note ---
Date of Service July 26, 2021 Assessment & Plan (1) Bilateral lower leg cellulitis: Plan: Bacteremia secondary to B/L LE cellulitis and Sepsis on admission, has been treated and resolving now Xray of Tibia and fibula showed Soft tissue swelling with no acute bony abnormality identified. Received IV Azactam and doxycycline Blood culture grew gram positive cocci Wound culture staph species IV dapto was changed to Cefazolin IV blood culture on 07/20 grew gram-positive cocci Blood culture on 07/21 no growth so far ECHO showed no evidence of vegetation ID on board recommended to continue Dapto Dapto was discontinued due to elevate CPK level, then was transition on cefazolin and doxycycline We will discuss with ID about duration and choice of antibiotic Discussed with ID specialist in [place] and was advised that if the cellulitis is improved there is no need to continue any more antibiotic The wounds are much better and there is no evidence of cellulitis but still has 2 or 3 scattered ulcerations in the leg We will continue current antibiotic and discontinue on discharge Clinically much improved and without any evidence of cellulitis The ulcers/wound in the lower extremities are improving (2) Diarrhea in adult patient: Plan: Present on admission with recurrent episodes of watery diarrhea Possible related to viral gastroenteritis CT abd/pelvis showed no bowel obstruction is seen.ingested metallic foreign body is noted in the cecum, and is new from 06/02/2021. Stool for C. 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 Rate controlled on metoprolol Monitor INR daily-4.1 on 07/23/21 still elevated at more than 4 INR is 3.4 on 07/26/2021 (7) DM type 2 (diabetes mellitus, type 2): Plan: DM type 2 (diabetes mellitus, type 2): Most recent Hba1c 7.4 On Lantus and NovoLog per protocol while hospitalized Continue monitor BS (8) Diastolic CHF: Plan: No signs and/or symptoms of fluid overload (9) Nocturnal hypoxemia: (10) COPD (chronic obstructive pulmonary disease): Plan: COPD (chronic obstructive pulmonary disease): Hypoxemic respiratory failure, chronic: CT showed Ground glass opacities within visualized portions of the right lung which favor an infectious process. Saturating well on chronic 2 L of oxygen Continue doxycycline No signs of acute exacerbation, continue home inhalers Remains stable Plan: Elevated creatine Kinase Possible related to Daptomycin Creatinine kinase peaked to 505, currently is trending down 466-->228 Continue to hold statin Foreign Body in the colon CT abd/pelvis showed no bowel obstruction is seen.ingested metallic foreign body is noted in the cecum, and is new from 06/02/2021. Asymptomatic No sign of perforation or peritonitis Case discussed with gastro ( No official consult placed) recommended to follow up with KUB to monitor KUB showed no change in position of 3 metallic densities within the cecum which represent endoscopic clips. Normocytic Anemia Hemoglobin 8.9 today EGD and colonoscopy were performed in the last admission S/P EGD: Gastritis, multiple polyps in the stomach suggestive of fundic gland polyposis biopsy taken. S/P Colonoscopy: Hemorrhoids, perianal erythema, skin tag that appeared to be oozing slightly. Multiple sigmoid diverticula. Nonbleeding AVM in the ascending colon ablated. Received vitamin K Continue monitor CBC Elevated INR currently INR 3.5 Received Vit K Will resume coumadin No sign of active bleeding Continue monitor Electrolytes imbalance Calcium 7.8 today Continue Monitor electrolytes Right Shoulder pain Right shoulder CT showed no acute fracture or dislocation within the right shoulder.Moderate degenerative changes of the right shoulder. Denies any pain DVT prophylaxis: Coumadin is on hold CODE STATUS Full code Awaiting placement Admission and Anticipated Discharge Date Admission Date: July 17, 2021 Subjective 07/23/2021 The patient was seen and examined in medical telemetry unit She has been feeling much better and only complains to have weakness Denies any significant pain in legs Denies any fever and/or chills and no nausea and or vomiting 07/24/2021 The patient was seen and examined in medical telemetry unit She has been stable without any acute symptoms Her leg wounds are much better 07/25/2021 Patient was seen and examined in medical telemetry unit She has been feeling much better and waiting to be placed She denies any significant symptoms Awaiting placement 07/26/2021 The patient was seen and examined in medical telemetry unit She has had some pain in the left leg but otherwise denied any symptoms She has been waiting to be placed Review of Systems Review of Systems: All systems reviewed and are unremarkable except as noted below Musculoskeletal: Minimal left leg pain. Leg ulcers are improving and there is no cellulitis Physical Exam Physical Exam: Sitting on a chair without any acute distress Constitutional: well developed, well nourished and + obese; not ill appearing Eyes: PERRL, conjunctivae normal, anicteric sclerae ENMT: external ear and nose normal, oropharynx normal Neck: trachea midline, no thyromegaly Respiratory: no respiratory distress Auscultation: lungs clear to auscultation bilaterally Cardiovascular: Rate/Rhythm: regular rate and regular rhythm; not tachycardic Heart Sounds: normal S1 and normal S2; no murmur Extremities: + edema (Trace edema bilaterally) Gastrointestinal (Abdomen): Inspection/Auscultation: normal bowel sounds; abdomen not distended Percussion/Palpation: abdomen soft; abdomen nontender Musculoskeletal: Extremities: + lower extremity abnormal to inspection (Chronic skin changes with few areas of ulceration) Bilateral Neurologic: moves all extremities; no focal motor deficits Results & Data Results & Data ([facility]) Vital Signs (Past 12 Hours) Vital Signs Temp Pulse Pulse Resp BP Pulse Ox 07/26/21 11:27 73 18 95 07/26/21 11:26 36.3 C L 84 19 110/74 95 07/26/21 08:00 78 18 96 07/26/21 07:44 36.5 C 95 H 18 125/69 98 07/26/21 07:25 76 07/26/21 03:30 36.4 C L 82 20 116/69 98 Medications Administered Current Inpatient Medications Acetaminophen (Acetaminophen 325 Mg Tab) 650 mg PO Q4H PRN PRN Reason: Pain or Fever Stop: 08/16/21 23:28 Albuterol (Albuterol Hfa 8 Gm Inhaler (Combivent Respimat P&T Subs)) 1 puffs INH QIDR [facility] Stop: 08/17/21 06:59 Last Admin: 07/26/21 11:25 Dose: 1 puffs Documented by: Dextrose (Dextrose 50% 50 Ml Syringe) 25 - 50 ml IV UD PRN; Protocol PRN Reason: Hypoglycemia Protocol Stop: 08/16/21 23:28 Ferrous Sulfate (Ferrous Sulfate 325 Mg Tab) 325 mg PO QAM [facility] Stop: 08/17/21 08:59 Last Admin: 07/26/21 08:11 Dose: 325 mg Documented by: Fluticasone/Vilanterol (Fluticasone/Vilanterol 100/25mcg 14 Puffs/Inhaler) 1 puffs INH DAILY [facility] Stop: 08/17/21 08:59 Last Admin: 07/26/21 08:12 Dose: 1 puffs Documented by: Glucagon (Glucagon For Inj 1 Mg Vial) 1 mg SQ UD PRN; Protocol PRN Reason: Hypoglycemia Protocol Stop: 08/16/21 23:28 Glucose (Glucose 10 Tabs/Tube) 4 - 8 tabs PO UD PRN; Protocol PRN Reason: Hypoglycemia Protocol Stop: 08/16/21 23:28 Glucose (Glucose 40% Gel 15 Gm Tube) 15 - 30 gm PO UD PRN; Protocol PRN Reason: Hypoglycemia Protocol Stop: 08/16/21 23:28 Promethazine HCl 12.5 mg/ (Sodium Chloride) 50.5 mls @ 202 mls/hr IV Q6H PRN PRN Reason: Nausea And Vomiting Stop: 08/16/21 23:28 Cefazolin Sodium (Ancef 2000mg) 2,000 mg in 15 mls @ 3.75 mls/min IV Q8H [facility] Stop: 08/03/21 09:59 Last Admin: 07/26/21 08:16 Dose: 3.75 mls/min Documented by: Insulin Aspart (Insulin Aspart Per Unit) 0 units SC ACHS [facility] Stop: 08/16/21 23:28 Last Admin: 07/26/21 12:21 Dose: 1 units Documented by: Insulin Glargine (Insulin Glargine Solostar 100 Units/Ml 3 Ml Pen) 5 units SC DAILY [facility] Stop: 08/17/21 08:59 Last Admin: 07/26/21 09:09 Dose: 5 units Documented by: Ipratropium [place] (Ipratropium Hfa Inhaler (Combivent Respimat P&T Subs)) 1 puffs INH QIDR [facility] Stop: 08/17/21 06:59 Last Admin: 07/26/21 11:26 Dose: 1 puffs Documented by: Loperamide HCl (Loperamide Hcl 2 Mg Cap) 2 mg PO Q8H PRN PRN Reason: Diarrhea Stop: 08/17/21 12:17 Last Admin: 07/18/21 12:41 Dose: 2 mg Documented by: Metoprolol Tartrate (Metoprolol Tartrate 25 Mg Tab) 25 mg PO BID [facility] Stop: 08/17/21 08:59 Last Admin: 07/26/21 08:11 Dose: 25 mg Documented by: Miscellaneous (Carbohydrates For Hypoglycemia ) 15 - 30 gm PO UD PRN PRN Reason: Hypoglycemia Protocol Stop: 08/16/21 23:28 Nystatin (Nystatin Powder 15gm Btl) 1 appln EXT BID [facility] Stop: 08/18/21 11:44 Last Admin: 07/26/21 08:13 Dose: 1 appln Documented by: Pantoprazole Sodium (Pantoprazole 40 Mg Tab) 40 mg PO HS [facility] Stop: 08/17/21 20:59 Last Admin: 07/25/21 20:34 Dose: 40 mg Documented by: Simvastatin (Simvastatin 20 Mg Tab) 20 mg PO HS [facility] Stop: 08/17/21 20:59 Last Admin: 07/18/21 21:04 Dose: 20 mg Documented by: Warfarin Sodium (Warfarin Sod 2 Mg Tab) 2 mg PO DAILY@1600 [facility] Stop: 08/22/21 15:59 Last Admin: 07/25/21 16:04 Dose: Not Given Documented by: (1) Diastolic CHF Heart failure chronicity: acute on chronic Qualified Code(s): I50.33 - Acute on chronic diastolic (congestive) heart failure (2) COPD (chronic obstructive pulmonary disease) COPD type: COPD with acute exacerbation Qualified Code(s): J44.1 - Chronic obstructive pulmonary disease with (acute) exacerbation
[2021-07-26] MEDS: PANTOprazole 40 MG TAB PO SCH (20:45)
[2021-07-27] MEDS: ceFAZolin 2000MG 2,000 MG/15 ML SYR IV SCH ×3 (02:35→18:29)
[2021-07-27] MEDS: METOPROLOL TARTRATE 25 MG TAB PO SCH ×2 (07:43→20:53)
[2021-07-27] MEDS: FERROUS SULFATE 325 MG TAB PO SCH (07:43)
[2021-07-27] MEDS: NYSTATIN POWDER 15GM BTL EXT SCH ×2 (07:45→20:54)
[2021-07-27] MEDS: Albuterol HFA 8 GM Inhaler (Combivent Respimat P&T Subs) INH SCH ×4 (07:46→19:10)
[2021-07-27] MEDS: Ipratropium HFA Inhaler (Combivent Respimat P&T Subs) INH SCH ×4 (07:46→19:10)
[2021-07-27] MEDS: FLUTICASONE/VILANTEROL 100/25MCG 14 PUFFS/INHALER INH SCH (08:37)
[2021-07-27] MEDS: INSULIN GLARGINE SOLOSTAR 100 UNITS/ML 3 ML PEN SC SCH (08:37)
[2021-07-27] MEDS: INSULIN ASPART PER UNIT SC SCH ×4 (08:38→20:53)
[2021-07-27 11:22] LABS: INR 3.9 (0.9-1.1); Prothrombin Time 38.7 Seconds (9.0-12.0)
[2021-07-27] MEDS: WARFARIN SOD 2 MG TAB PO SCH (11:49)
--- NOTE | 2021-07-27 11:52 | Hospitalist Progress Note ---
Date of Service July 27, 2021 Assessment & Plan (1) Bilateral lower leg cellulitis: Plan: Bacteremia secondary to B/L LE cellulitis and Sepsis on admission, has been treated and resolving now Xray of Tibia and fibula showed Soft tissue swelling with no acute bony abnormality identified. Received IV Azactam and doxycycline Blood culture grew gram positive cocci Wound culture staph species IV dapto was changed to Cefazolin IV blood culture on 07/20 grew gram-positive cocci Blood culture on 07/21 no growth so far ECHO showed no evidence of vegetation ID on board recommended to continue Dapto Dapto was discontinued due to elevate CPK level, then was transition on cefazolin and doxycycline We will discuss with ID about duration and choice of antibiotic Discussed with ID specialist in [place] and was advised that if the cellulitis is improved there is no need to continue any more antibiotic The wounds are much better and there is no evidence of cellulitis but still has 2 or 3 scattered ulcerations in the leg We will continue current antibiotic and discontinue on discharge Clinically much improved and without any evidence of cellulitis The ulcers/wound in the lower extremities are improving The leg wounds are much improved and she will not need any more antibiotics on discharge (2) Diarrhea in adult patient: Plan: Present on admission with recurrent episodes of watery diarrhea Possible related to viral gastroenteritis CT abd/pelvis showed no bowel obstruction is seen.ingested metallic foreign body is noted in the cecum, and is new from 06/02/2021. Stool for C. 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 Rate controlled on metoprolol Monitor INR daily-4.1 on 07/23/21 still elevated at more than 4 INR is 3.4 on 07/26/2021 INR is 3.9 as of 07/27/2021-continue same dose of Coumadin (7) DM type 2 (diabetes mellitus, type 2): Plan: DM type 2 (diabetes mellitus, type 2): Most recent Hba1c 7.4 On Lantus and NovoLog per protocol while hospitalized Continue monitor BS (8) Diastolic CHF: Plan: No signs and/or symptoms of fluid overload (9) Nocturnal hypoxemia: (10) COPD (chronic obstructive pulmonary disease): Plan: COPD (chronic obstructive pulmonary disease): Hypoxemic respiratory failure, chronic: CT showed Ground glass opacities within visualized portions of the right lung which favor an infectious process. Saturating well on chronic 2 L of oxygen Continue doxycycline No signs of acute exacerbation, continue home inhalers Remains stable Plan: Elevated creatine Kinase Possible related to Daptomycin Creatinine kinase peaked to 505, currently is trending down 466-->228 Continue to hold statin Foreign Body in the colon CT abd/pelvis showed no bowel obstruction is seen.ingested metallic foreign body is noted in the cecum, and is new from 06/02/2021. Asymptomatic No sign of perforation or peritonitis Case discussed with gastro ( No official consult placed) recommended to follow up with KUB to monitor KUB showed no change in position of 3 metallic densities within the cecum which represent endoscopic clips. Normocytic Anemia Hemoglobin 8.9 today EGD and colonoscopy were performed in the last admission S/P EGD: Gastritis, multiple polyps in the stomach suggestive of fundic gland polyposis biopsy taken. S/P Colonoscopy: Hemorrhoids, perianal erythema, skin tag that appeared to be oozing slightly. Multiple sigmoid diverticula. Nonbleeding AVM in the ascending colon ablated. Received vitamin K Continue monitor CBC Elevated INR currently INR 3.5 Received Vit K Will resume coumadin No sign of active bleeding Continue monitor Electrolytes imbalance Calcium 7.8 today Continue Monitor electrolytes Right Shoulder pain Right shoulder CT showed no acute fracture or dislocation within the right shoulder.Moderate degenerative changes of the right shoulder. Denies any pain DVT prophylaxis: Coumadin is on hold CODE STATUS Full code Awaiting placement Admission and Anticipated Discharge Date Admission Date: July 17, 2021 Subjective 07/23/2021 The patient was seen and examined in medical telemetry unit She has been feeling much better and only complains to have weakness Denies any significant pain in legs Denies any fever and/or chills and no nausea and or vomiting 07/24/2021 The patient was seen and examined in medical telemetry unit She has been stable without any acute symptoms Her leg wounds are much better 07/25/2021 Patient was seen and examined in medical telemetry unit She has been feeling much better and waiting to be placed She denies any significant symptoms Awaiting placement 07/26/2021 The patient was seen and examined in medical telemetry unit She has had some pain in the left leg but otherwise denied any symptoms She has been waiting to be placed 07/27/2021 The patient was seen and examined in medical telemetry unit She has been feeling a lot better and is being bored in the hospital Awaiting placement and likely discharge tomorrow Review of Systems Review of Systems: All systems reviewed and are unremarkable except as noted below Musculoskeletal: Minimal left leg pain. Leg ulcers are improving and there is no cellulitis Physical Exam Physical Exam: Sitting on a chair without any acute distress Constitutional: well developed, well nourished and + obese; not ill appearing Eyes: PERRL, conjunctivae normal, anicteric sclerae ENMT: external ear and nose normal, oropharynx normal Neck: trachea midline, no thyromegaly Respiratory: no respiratory distress Auscultation: lungs clear to a uscultation bilaterally Cardiovascular: Rate/Rhythm: regular rate and regular rhythm; not tachycardic Heart Sounds: normal S1 and normal S2; no murmur Extremities: + edema (Trace edema bilaterally) Gastrointestinal (Abdomen): Inspection/Auscultation: normal bowel sounds; abdomen not distended Percussion/Palpation: abdomen soft; abdomen nontender Musculoskeletal: Extremities: + lower extremity abnormal to inspection (Chronic skin changes with few areas of ulceration) Bilateral Neurologic: moves all extremities; no focal motor deficits Psychiatric: A+Ox3, euthymic affect Results & Data Results & Data ([facility]) Vital Signs (Past 12 Hours) Vital Signs Temp Pulse Resp BP Pulse Ox 07/27/21 11:34 86 18 94 07/27/21 11:27 36.8 C 65 16 120/78 92 07/27/21 08:04 78 18 96 07/27/21 07:34 37.0 C 86 18 136/76 97 07/27/21 02:36 36.7 C 91 H 20 136/65 98 Medications Administered Current Inpatient Medications Acetaminophen (Acetaminophen 325 Mg Tab) 650 mg PO Q4H PRN PRN Reason: Pain or Fever Stop: 08/16/21 23:28 Albuterol (Albuterol Hfa 8 Gm Inhaler (Combivent Respimat P&T Subs)) 1 puffs INH QIDR [facility] Stop: 08/17/21 06:59 Last Admin: 07/27/21 11:32 Dose: 1 puffs Documented by: Dextrose (Dextrose 50% 50 Ml Syringe) 25 - 50 ml IV UD PRN; Protocol PRN Reason: Hypoglycemia Protocol Stop: 08/16/21 23:28 Ferrous Sulfate (Ferrous Sulfate 325 Mg Tab) 325 mg PO QAM [facility] Stop: 08/17/21 08:59 Last Admin: 07/27/21 07:43 Dose: 325 mg Documented by: Fluticasone/Vilanterol (Fluticasone/Vilanterol 100/25mcg 14 Puffs/Inhaler) 1 puffs INH DAILY [facility] Stop: 08/17/21 08:59 Last Admin: 07/27/21 08:37 Dose: 1 puffs Documented by: Glucagon (Glucagon For Inj 1 Mg Vial) 1 mg SQ UD PRN; Protocol PRN Reason: Hypoglycemia Protocol Stop: 08/16/21 23:28 Glucose (Glucose 10 Tabs/Tube) 4 - 8 tabs PO UD PRN; Protocol PRN Reason: Hypoglycemia Protocol Stop: 08/16/21 23:28 Glucose (Glucose 40% Gel 15 Gm Tube) 15 - 30 gm PO UD PRN; Protocol PRN Reason: Hypoglycemia Protocol Stop: 08/16/21 23:28 Promethazine HCl 12.5 mg/ (Sodium Chloride) 50.5 mls @ 202 mls/hr IV Q6H PRN PRN Reason: Nausea And Vomiting Stop: 08/16/21 23:28 Cefazolin Sodium (Ancef 2000mg) 2,000 mg in 15 mls @ 3.75 mls/min IV Q8H [facility] Stop: 08/03/21 09:59 Last Admin: 07/27/21 08:43 Dose: 3.75 mls/min Documented by: Insulin Aspart (Insulin Aspart Per Unit) 0 units SC ACHS [facility] Stop: 08/16/21 23:28 Last Admin: 07/27/21 08:38 Dose: 1 units Documented by: Insulin Glargine (Insulin Glargine Solostar 100 Units/Ml 3 Ml Pen) 5 units SC DAILY [facility] Stop: 08/17/21 08:59 Last Admin: 07/27/21 08:37 Dose: 5 units Documented by: Ipratropium [place] (Ipratropium Hfa Inhaler (Combivent Respimat P&T Subs)) 1 puffs INH QIDR [facility] Stop: 08/17/21 06:59 Last Admin: 07/27/21 11:31 Dose: 1 puffs Documented by: Loperamide HCl (Loperamide Hcl 2 Mg Cap) 2 mg PO Q8H PRN PRN Reason: Diarrhea Stop: 08/17/21 12:17 Last Admin: 07/18/21 12:41 Dose: 2 mg Documented by: Metoprolol Tartrate (Metoprolol Tartrate 25 Mg Tab) 25 mg PO BID [facility] Stop: 08/17/21 08:59 Last Admin: 07/27/21 07:43 Dose: 25 mg Documented by: Miscellaneous (Carbohydrates For Hypoglycemia ) 15 - 30 gm PO UD PRN PRN Reason: Hypoglycemia Protocol Stop: 08/16/21 23:28 Nystatin (Nystatin Powder 15gm Btl) 1 appln EXT BID [facility] Stop: 08/18/21 11:44 Last Admin: 07/27/21 07:45 Dose: 1 appln Documented by: Pantoprazole Sodium (Pantoprazole 40 Mg Tab) 40 mg PO [facility] Stop: 08/17/21 20:59 Last Admin: 07/26/21 20:45 Dose: 40 mg Documented by: Simvastatin (Simvastatin 20 Mg Tab) 20 mg PO [facility] Stop: 08/17/21 20:59 Last Admin: 07/18/21 21:04 Dose: 20 mg Documented by: Warfarin Sodium (Warfarin Sod 2 Mg Tab) 2 mg PO DAILY@1600 [facility] Stop: 08/22/21 15:59 Last Admin: 07/25/21 16:04 Dose: Not Given Documented by: (1) Diastolic CHF Heart failure chronicity: acute on chronic Qualified Code(s): I50.33 - Acute on chronic diastolic (congestive) heart failure (2) COPD (chronic obstructive pulmonary disease) COPD type: COPD with acute exacerbation Qualified Code(s): J44.1 - Chronic obstructive pulmonary disease with (acute) exacerbation
[2021-07-27] MEDS: ACETAMINOPHEN 325 MG TAB PO PRN (19:23)
[2021-07-27] MEDS: PANTOprazole 40 MG TAB PO SCH (20:53)
[2021-07-28] MEDS: ceFAZolin 2000MG 2,000 MG/15 ML SYR IV SCH ×3 (01:52→17:13)
[2021-07-28] MEDS ORDERED: LEVALBUTEROL HCL 1.25 MG/3 ML NEB NEB PRN (05:59)
[2021-07-28 07:20] LABS: Basophils # (auto) 0.05 K/uL (0-0.2); Basophils % (auto) 0.7 %; Eosinophils # (auto) 0.29 K/uL (0-0.5); Eosinophils % (auto) 4.2 %; Hematocrit (blood only) 32.3 % (37-47); Hemoglobin 9.4 g/dL (12.0-16.0); Immature Granulocytes # (auto) 0.06 K/uL (0.00-0.02); Immature Granulocytes % (auto) 0.9 %; Lymphocytes # (auto) 1.11 K/uL (1.2-3.4); Lymphocytes % (auto) 16.2 %; Mean Corpuscular Hemoglobin 25.4 pg (25-34); Mean Corpuscular Hgb Conc 29.1 g/dL (32-36); Mean Corpuscular Volume 87.3 fL (80-100); Mean Platelet Volume 10.7 fL (7.4-10.4); Monocytes # (auto) 0.61 K/uL (0.11-0.59); Monocytes % (auto) 8.9 %; Neutrophils # (auto) 4.75 K/uL (1.4-6.5); Neutrophils % (auto) 69.1 %; Platelet Count 197 K/uL (130-400); RDW Coefficient of Variation 17.9 % (11.5-14.5); RDW Standard Deviation 57.4 fL (36.4-46.3); White Blood Count 6.87 K/uL (4.8-10.8)
[2021-07-28] MEDS: Ipratropium HFA Inhaler (Combivent Respimat P&T Subs) INH SCH ×4 (07:21→19:50)
[2021-07-28] MEDS: Albuterol HFA 8 GM Inhaler (Combivent Respimat P&T Subs) INH SCH ×4 (07:21→19:49)
[2021-07-28 07:28] LABS: INR 3.2 (0.9-1.1); Prothrombin Time 32.4 Seconds (9.0-12.0)
[2021-07-28 07:35] LABS: BUN Creatinine Ratio 21.3 (10-20); Calcium 7.3 mg/dl (8.5-10.1); Creatinine Clr Calc Pharmacy 64.9 ml/min; Est GFR (African American) 81.3 ml/min; Est GFR (Non-African American) 70.1 ml/min; Potassium 3.9 mmol/L (3.5-5.1)
[2021-07-28] MEDS: METOPROLOL TARTRATE 25 MG TAB PO SCH ×2 (08:07→21:02)
[2021-07-28] MEDS: FERROUS SULFATE 325 MG TAB PO SCH (08:08)
[2021-07-28] MEDS: INSULIN GLARGINE SOLOSTAR 100 UNITS/ML 3 ML PEN SC SCH (08:08)
[2021-07-28] MEDS: INSULIN ASPART PER UNIT SC SCH ×4 (08:08→21:57)
[2021-07-28] MEDS: FLUTICASONE/VILANTEROL 100/25MCG 14 PUFFS/INHALER INH SCH (08:09)
[2021-07-28] MEDS: NYSTATIN POWDER 15GM BTL EXT SCH ×2 (08:09→21:03)
[2021-07-28] MEDS: ACETAMINOPHEN 325 MG TAB PO PRN ×2 (09:58→19:52)
--- NOTE | 2021-07-28 13:47 | Hospitalist Progress Note ---
Date of Service July 28, 2021 Assessment & Plan (1) Bilateral lower leg cellulitis: Plan: Bacteremia secondary to B/L LE cellulitis and Sepsis on admission, has been treated and resolving now Xray of Tibia and fibula showed Soft tissue swelling with no acute bony abnormality identified. Received IV Azactam and doxycycline Blood culture grew gram positive cocci Wound culture staph species IV dapto was changed to Cefazolin IV blood culture on 07/20 grew gram-positive cocci Blood culture on 07/21 no growth so far ECHO showed no evidence of vegetation ID on board recommended to continue Dapto Dapto was discontinued due to elevate CPK level, then was transition on cefazolin and doxycycline We will discuss with ID about duration and choice of antibiotic Discussed with ID specialist in [place] and was advised that if the cellulitis is improved there is no need to continue any more antibiotic The wounds are much better and there is no evidence of cellulitis but still has 2 or 3 scattered ulcerations in the leg We will continue current antibiotic and discontinue on discharge Clinically much improved and without any evidence of cellulitis The ulcers/wound in the lower extremities are improving The leg wounds are much improved and she will not need any more antibiotics on discharge No more legs pain (2) Diarrhea in adult patient: Plan: Present on admission with recurrent episodes of watery diarrhea Possible related to viral gastroenteritis CT abd/pelvis showed no bowel obstruction is seen.ingested metallic foreign body is noted in the cecum, and is new from 06/02/2021. Stool for C. 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 Rate controlled on metoprolol Monitor INR daily-4.1 on 07/23/21 still elevated at more than 4 INR is 3.4 on 07/26/2021 INR is 3.9 as of 07/27/2021-continue same dose of Coumadin INR is 3.2 as of 07/28/2021 (7) DM type 2 (diabetes mellitus, type 2): Plan: DM type 2 (diabetes mellitus, type 2): Most recent Hba1c 7.4 On Lantus and NovoLog per protocol while hospitalized Continue monitor BS (8) Diastolic CHF: Plan: No signs and/or symptoms of fluid overload (9) Nocturnal hypoxemia: (10) COPD (chronic obstructive pulmonary disease): Plan: COPD (chronic obstructive pulmonary disease): Hypoxemic respiratory failure, chronic: CT showed Ground glass opacities within visualized portions of the right lung which favor an infectious process. Saturating well on chronic 2 L of oxygen Continue doxycycline No signs of acute exacerbation, continue home inhalers Remains stable Plan: Elevated creatine Kinase Possible related to Daptomycin Creatinine kinase peaked to 505, currently is trending down 466-->228 Continue to hold statin Foreign Body in the colon CT abd/pelvis showed no bowel obstruction is seen.ingested metallic foreign body is noted in the cecum, and is new from 06/02/2021. Asymptomatic No sign of perforation or peritonitis Case discussed with gastro ( No official consult placed) recommended to follow up with KUB to monitor KUB showed no change in position of 3 metallic densities within the cecum which represent endoscopic clips. Normocytic Anemia Hemoglobin 8.9 today EGD and colonoscopy were performed in the last admission S/P EGD: Gastritis, multiple polyps in the stomach suggestive of fundic gland polyposis biopsy taken. S/P Colonoscopy: Hemorrhoids, perianal erythema, skin tag that appeared to be oozing slightly. Multiple sigmoid diverticula. Nonbleeding AVM in the ascending colon ablated. Received vitamin K Continue monitor CBC-hemoglobin stable at 9.4 as of 07/28/2021 Elevated INR currently INR 3.5 Received Vit K Will resume coumadin No sign of active bleeding Continue monitor Electrolytes imbalance Calcium 7.8 today Continue Monitor electrolytes Right Shoulder pain Right shoulder CT showed no acute fracture or dislocation within the right shoulder.Moderate degenerative changes of the right shoulder. Denies any pain DVT prophylaxis: Has been getting Coumadin CODE STATUS Full code Awaiting placement Admission and Anticipated Discharge Date Admission Date: July 17, 2021 Subjective 07/23/2021 The patient was seen and examined in medical telemetry unit She has been feeling much better and only complains to have weakness Denies any significant pain in legs Denies any fever and/or chills and no nausea and or vomiting 07/24/2021 The patient was seen and examined in medical telemetry unit She has been stable without any acute symptoms Her leg wounds are much better 07/25/2021 Patient was seen and examined in medical telemetry unit She has been feeling much better and waiting to be placed She denies any significant symptoms Awaiting placement 07/26/2021 The patient was seen and examined in medical telemetry unit She has had some pain in the left leg but otherwise denied any symptoms She has been waiting to be placed 07/27/2021 The patient was seen and examined in medical telemetry unit She has been feeling a lot better and is being bored in the hospital Awaiting placement and likely discharge tomorrow 07/28/2021 The patient was seen and examined in medical telemetry unit Her leg pain is much better and has had physical therapy with recommendation to go to short-term rehab She has been referred to [facility] Review of Systems Review of Systems: All systems reviewed and are unremarkable except as noted below Musculoskeletal: Minimal left leg pain. Leg ulcers are improving and there is no cellulitis Physical Exam Physical Exam: Sitting on a chair without any acute distress Constitutional: well developed, well nourished and + obese; not ill appearing Eyes: PERRL, conjunctivae normal, anicteric sclerae ENMT: external ear and nose normal, oropharynx normal Neck: trachea midline, no thyromegaly Respiratory: no respiratory distress Auscultation: lungs clear to auscultation bilaterally Cardiovascular: Rate/Rhythm: regular rate and regular rhythm; not tachycardic Heart Sounds: normal S1 and normal S2; no murmur Extremities: + edema (Trace edema bilaterally) Gastrointestinal (Abdomen): Inspection/Auscultation: normal bowel sounds; abdomen not distended Percussion/Palpation: abdomen soft; abdomen nontender Musculoskeletal: Extremities: + lower extremity abnormal to inspection ([employer] flory skin changes with few areas of ulceration) Bilateral Skin: Chronic skin changes bilaterally lower legs. Ulceration and cellulitis are much better Neurologic: moves all extremities; no focal motor deficits Psychiatric: A+Ox3, euthymic affect Lymphatic: no cervical or axillary lymphadenopathy Results & Data Results & Data ([facility]) Vital Signs (Past 12 Hours) Vital Signs Temp Pulse Resp BP BP Pulse Ox 07/28/21 11:20 87 18 93 07/28/21 11:01 36.6 C 79 20 101/62 92 07/28/21 07:21 91 H 16 96 07/28/21 07:17 36.3 C L 91 H 19 120/40 L 98 07/28/21 03:29 36.6 C 82 16 135/81 96 Laboratory Results Short CBC 07/28/21 Range/Units 06:13 WBC 6.87 (4.8-10.8) K/uL Hgb 9.4 L (12.0-16.0) g/dL Hct 32.3 L (37-47) % Plt Count 197 (130-400) K/uL BMP 07/28/21 06:13 Sodium 141 Potassium 3.9 Chloride 106 Carbon Dioxide 30 BUN 17 Creatinine 0.80 Glucose 87 Calcium 7.3 L Medications Administered Current Inpatient Medications Acetaminophen (Acetaminophen 325 Mg Tab) 650 mg PO Q4H PRN PRN Reason: Pain or Fever Stop: 08/16/21 23:28 Last Admin: 07/28/21 09:58 Dose: 650 mg Documented by: Albuterol (Albuterol Hfa 8 Gm Inhaler (Combivent Respimat P&T Subs)) 1 puffs INH QIDR [facility] Stop: 08/17/21 06:59 Last Admin: 07/28/21 11:18 Dose: 1 puffs Documented by: Dextrose (Dextrose 50% 50 Ml Syringe) 25 - 50 ml IV UD PRN; Protocol PRN Reason: Hypoglycemia Protocol Stop: 08/16/21 23:28 Ferrous Sulfate (Ferrous Sulfate 325 Mg Tab) 325 mg PO QAM [facility] Stop: 08/17/21 08:59 Last Admin: 07/28/21 08:08 Dose: 325 mg Documented by: Fluticasone/Vilanterol (Fluticasone/Vilanterol 100/25mcg 14 Puffs/Inhaler) 1 puffs INH DAILY [facility] Stop: 08/17/21 08:59 Last Admin: 07/28/21 08:09 Dose: 1 puffs Documented by: Glucagon (Glucagon For Inj 1 Mg Vial) 1 mg SQ UD PRN; Protocol PRN Reason: Hypoglycemia Protocol Stop: 08/16/21 23:28 Glucose (Glucose 10 Tabs/Tube) 4 - 8 tabs PO UD PRN; Protocol PRN Reason: Hypoglycemia Protocol Stop: 08/16/21 23:28 Glucose (Glucose 40% Gel 15 Gm Tube) 15 - 30 gm PO UD PRN; Protocol PRN Reason: Hypoglycemia Protocol Stop: 08/16/21 23:28 Promethazine HCl 12.5 mg/ (Sodium Chloride) 50.5 mls @ 202 mls/hr IV Q6H PRN PRN Reason: Nausea And Vomiting Stop: 08/16/21 23:28 Cefazolin Sodium (Ancef 2000mg) 2,000 mg in 15 mls @ 3.75 mls/min IV Q8H [facility] Stop: 08/03/21 09:59 Last Admin: 07/28/21 09:25 Dose: 3.75 mls/min Documented by: Insulin Aspart (Insulin Aspart Per Unit) 0 units SC ACHS [facility] Stop: 08/16/21 23:28 Last Admin: 07/28/21 12:14 Dose: 2 units Documented by: Insulin Glargine (Insulin Glargine Solostar 100 Units/Ml 3 Ml Pen) 5 units SC DAILY [facility] Stop: 08/17/21 08:59 Last Admin: 07/28/21 08:08 Dose: 5 units Documented by: Ipratropium [place] (Ipratropium Hfa Inhaler (Combivent Respimat P&T Subs)) 1 puffs INH QIDR [facility] Stop: 08/17/21 06:59 Last Admin: 07/28/21 11:18 Dose: 1 puffs Documented by: Loperamide HCl (Loperamide Hcl 2 Mg Cap) 2 mg PO Q8H PRN PRN Reason: Diarrhea Stop: 08/17/21 12:17 Last Admin: 07/18/21 12:41 Dose: 2 mg Documented by: Metoprolol Tartrate (Metoprolol Tartrate 25 Mg Tab) 25 mg PO BID [facility] Stop: 08/17/21 08:59 Last Admin: 07/28/21 08:07 Dose: 25 mg Documented by: Miscellaneous (Carbohydrates For Hypoglycemia ) 15 - 30 gm PO UD PRN PRN Reason: Hypoglycemia Protocol Stop: 08/16/21 23:28 Nystatin (Nystatin Powder 15gm Btl) 1 appln EXT BID [facility] Stop: 08/18/21 11:44 Last Admin: 07/28/21 08:09 Dose: 1 appln Documented by: Pantoprazole Sodium (Pantoprazole 40 Mg Tab) 40 mg PO HS [facility] Stop: 08/17/21 20:59 Last Admin: 07/27/21 20:53 Dose: 40 mg Documented by: Simvastatin (Simvastatin 20 Mg Tab) 20 mg PO HS [facility] Stop: 08/17/21 20:59 Last Admin: 07/18/21 21:04 Dose: 20 mg Documented by: Warfarin Sodium (Warfarin Sod 2 Mg Tab) 2 mg PO DAILY@1600 [facility] Stop: 08/22/21 15:59 Last Admin: 07/27/21 11:49 Dose: Not Given Documented by: (1) Diastolic CHF Heart failure chronicity: acute on chronic Qualified Code(s): I50.33 - Acute on chronic diastolic (congestive) heart failure (2) COPD (chronic obstructive pulmonary disease) COPD type: COPD with acute exacerbation Qualified Code(s): J44.1 - Chronic obstructive pulmonary disease with (acute) exacerbation
[2021-07-28] MEDS: WARFARIN SOD 2 MG TAB PO SCH (16:28)
[2021-07-28] MEDS: PANTOprazole 40 MG TAB PO SCH (21:02)
[2021-07-29] MEDS: ceFAZolin 2000MG 2,000 MG/15 ML SYR IV SCH ×2 (01:32→09:34)
[2021-07-29] MEDS: Albuterol HFA 8 GM Inhaler (Combivent Respimat P&T Subs) INH SCH ×4 (07:14→19:38)
[2021-07-29] MEDS: Ipratropium HFA Inhaler (Combivent Respimat P&T Subs) INH SCH ×4 (07:14→19:38)
[2021-07-29] MEDS: FERROUS SULFATE 325 MG TAB PO SCH (08:25)
[2021-07-29] MEDS: INSULIN ASPART PER UNIT SC SCH ×4 (08:28→21:13)
[2021-07-29] MEDS: METOPROLOL TARTRATE 25 MG TAB PO SCH ×2 (08:28→21:07)
[2021-07-29] MEDS: FLUTICASONE/VILANTEROL 100/25MCG 14 PUFFS/INHALER INH SCH (08:28)
[2021-07-29] MEDS: INSULIN GLARGINE SOLOSTAR 100 UNITS/ML 3 ML PEN SC SCH (08:29)
[2021-07-29] MEDS: NYSTATIN POWDER 15GM BTL EXT SCH ×2 (08:30→21:08)
--- NOTE | 2021-07-29 12:42 | Hospitalist Progress Note ---
Date of Service July 29, 2021 Assessment & Plan (1) Bilateral lower leg cellulitis: Plan: Bacteremia secondary to B/L LE cellulitis and Sepsis on admission, has been treated and resolving now Xray of Tibia and fibula showed Soft tissue swelling with no acute bony abnormality identified. Received IV Azactam and doxycycline Blood culture grew gram positive cocci Wound culture staph species IV dapto was changed to Cefazolin IV blood culture on 07/20 grew gram-positive cocci Blood culture on 07/21 no growth so far ECHO showed no evidence of vegetation ID on board recommended to continue Dapto Dapto was discontinued due to elevate CPK level, then was transition on cefazolin and doxycycline We will discuss with ID about duration and choice of antibiotic Discussed with ID specialist in [place] and was advised that if the cellulitis is improved there is no need to continue any more antibiotic The wounds are much better and there is no evidence of cellulitis but still has 2 or 3 scattered ulcerations in the leg We will continue current antibiotic and discontinue on discharge Clinically much improved and without any evidence of cellulitis The ulcers/wound in the lower extremities are improving The leg wounds are much improved and she will not need any more antibiotics on discharge Denies any pain in the legs (2) Diarrhea in adult patient: Plan: Present on admission with recurrent episodes of watery diarrhea Possible related to viral gastroenteritis CT abd/pelvis showed no bowel obstruction is seen.ingested metallic foreign body is noted in the cecum, and is new from 06/02/2021. Stool for C. 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 Rate controlled on metoprolol Monitor INR daily-4.1 on 07/23/21 still elevated at more than 4 INR is 3.4 on 07/26/2021 INR is 3.9 as of 07/27/2021-continue same dose of Coumadin INR is 3.2 as of 07/28/2021-we will check INR tomorrow (7) DM type 2 (diabetes mellitus, type 2): Plan: DM type 2 (diabetes mellitus, type 2): Most recent Hba1c 7.4 On Lantus and NovoLog per protocol while hospitalized Continue monitor BS (8) Diastolic CHF: Plan: No signs and/or symptoms of fluid overload (9) Nocturnal hypoxemia: (10) COPD (chronic obstructive pulmonary disease): Plan: COPD (chronic obstructive pulmonary disease): Hypoxemic respiratory failure, chronic: CT showed Ground glass opacities within visualized portions of the right lung which favor an infectious process. Saturating well on chronic 2 L of oxygen Continue doxycycline No signs of acute exacerbation, continue home inhalers Remains stable Plan: Elevated creatine Kinase Possible related to Daptomycin Creatinine kinase peaked to 505, currently is trending down 466-->228 Continue to hold statin Foreign Body in the colon CT abd/pelvis showed no bowel obstruction is seen.ingested metallic foreign body is noted in the cecum, and is new from 06/02/2021. Asymptomatic No sign of perforation or peritonitis Case discussed with gastro ( No official consult placed) recommended to follow up with KUB to monitor KUB showed no change in position of 3 metallic densities within the cecum which represent endoscopic clips. Normocytic Anemia Hemoglobin 8.9 today EGD and colonoscopy were performed in the last admission S/P EGD: Gastritis, multiple polyps in the stomach suggestive of fundic gland polyposis biopsy taken. S/P Colonoscopy: Hemorrhoids, perianal erythema, skin tag that appeared to be oozing slightly. Multiple sigmoid diverticula. Nonbleeding AVM in the ascending colon ablated. Received vitamin K Continue monitor CBC-hemoglobin stable at 9.4 as of 07/28/2021 Elevated INR currently INR 3.5 Received Vit K Will resume coumadin No sign of active bleeding Coumadin has been restarted and will continue Right Shoulder pain Right shoulder CT showed no acute fracture or dislocation within the right shoulder.Moderate degenerative changes of the right shoulder. Denies any pain DVT prophylaxis: Has been getting Coumadin CODE STATUS Full code Awaiting placement Admission and Anticipated Discharge Date Admission Date: July 17, 2021 Subjective 07/23/2021 The patient was seen and examined in medical telemetry unit She has been feeling much better and only complains to have weakness Denies any significant pain in legs Denies any fever and/or chills and no nausea and or vomiting 07/24/2021 The patient was seen and examined in medical telemetry unit She has been stable without any acute symptoms Her leg wounds are much better 07/25/2021 Patient was seen and examined in medical telemetry unit She has been feeling much better and waiting to be placed She denies any significant symptoms Awaiting placement 07/26/2021 The patient was seen and examined in medical telemetry unit She has had some pain in the left leg but otherwise denied any symptoms She has been waiting to be placed 07/27/2021 The patient was seen and examined in medical telemetry unit She has been feeling a lot better and is being bored in the hospital Awaiting placement and likely discharge tomorrow 07/28/2021 The patient was seen and examined in medical telemetry unit Her leg pain is much better and has had physical therapy with recommendation to go to short-term rehab She has been referred to [facility] 07/29/2021 The patient was seen and examined in medical telemetry unit She has been stable and awaiting placement Denies any significant symptoms Review of Systems Review of Systems: All systems reviewed and are unremarkable except as noted below Musculoskeletal: Minimal left leg pain. Leg ulcers are improving and there is no cellulitis Physical Exam Physical Exam: Sitting on a chair without any acute distress Constitutional: well developed, well nourished and + obese; not ill appearing Eyes: PERRL, conjunctivae normal, anicteric sclerae ENMT: external ear and nose normal, oropharynx normal Neck: trachea midline, no thyromegaly Respiratory: no respiratory distress Auscultation: lungs clear to auscultation bilaterally Cardiovascular: Rate/Rhythm: regular rate and regular rhythm; not tachycardic Heart Sounds: normal S1 and normal S2; no murmur Extremities: + edema (Trace edema bilaterally) Gastrointestinal (Abdomen): Inspection/Auscultation: normal bowel sounds; abdomen not distended Percussion/Palpation: abdomen soft; abdomen nontender Musculoskeletal: Extremities: + lower extremity abnormal to inspection (Chronic skin changes with few areas of ulceration) Bilateral Skin: Bilateral skin changes in the legs are chronic and is getting better Neurologic: moves all extremities; no focal motor deficits Psychiatric: A+Ox3, euthymic affect Lymphatic: no cervical or axillary lymphadenopathy Results & Data Results & Data ([facility]) Vital Signs (Past 12 Hours) Vital Signs Temp Pulse Pulse Resp BP Pulse Ox 07/29/21 11:21 36.5 C 85 19 130/76 95 07/29/21 10:50 69 16 94 07/29/21 08:03 36.9 C 89 19 142/69 H 97 07/29/21 07:17 80 07/29/21 07:16 66 18 95 07/29/21 04:39 36.6 C 83 20 125/60 97 Medications Administered Current Inpatient Medications Acetaminophen (Acetaminophen 325 Mg Tab) 650 mg PO Q4H PRN PRN Reason: Pain or Fever Stop: 08/16/21 23:28 Last Admin: 07/28/21 19:52 Dose: 650 mg Documented by: Albuterol (Albuterol Hfa 8 Gm Inhaler (Combivent Respimat P&T Subs)) 1 puffs INH QIDR [facility] Stop: 08/17/21 06:59 Last Admin: 07/29/21 10:49 Dose: 1 puffs Documented by: Dextrose (Dextrose 50% 50 Ml Syringe) 25 - 50 ml IV UD PRN; Protocol PRN Reason: Hypoglycemia Protocol Stop: 08/16/21 23:28 Ferrous Sulfate (Ferrous Sulfate 325 Mg Tab) 325 mg PO QAM [facility] Stop: 08/17/21 08:59 Last Admin: 07/29/21 08:25 Dose: 325 mg Documented by: Fluticasone/Vilanterol (Fluticasone/Vilanterol 100/25mcg 14 Puffs/Inhaler) 1 puffs INH DAILY [facility] Stop: 08/17/21 08:59 Last Admin: 07/29/21 08:28 Dose: 1 puffs Documented by: Glucagon (Glucagon For Inj 1 Mg Vial) 1 mg SQ UD PRN; Protocol PRN Reason: Hypoglycemia Protocol Stop: 08/16/21 23:28 Glucose (Glucose 10 Tabs/Tube) 4 - 8 tabs PO UD PRN; Protocol PRN Reason: Hypoglycemia Protocol Stop: 08/16/21 23:28 Glucose (Glucose 40% Gel 15 Gm Tube) 15 - 30 gm PO UD PRN; Protocol PRN Reason: Hypoglycemia Protocol Stop: 08/16/21 23:28 Promethazine HCl 12.5 mg/ (Sodium Chloride) 50.5 mls @ 202 mls/hr IV Q6H PRN PRN Reason: Nausea And Vomiting Stop: 08/16/21 23:28 Cefazolin Sodium (Ancef 2000mg) 2,000 mg in 15 mls @ 3.75 mls/min IV Q8H [facility] Stop: 08/03/21 09:59 Last Admin: 07/29/21 09:34 Dose: 3.75 mls/min Documented by: Insulin Aspart (Insulin Aspart Per Unit) 0 units SC ACHS [facility] Stop: 08/16/21 23:28 Last Admin: 07/29/21 12:02 Dose: 3 units Documented by: Insulin Glargine (Insulin Glargine Solostar 100 Units/Ml 3 Ml Pen) 5 units SC DAILY [facility] Stop: 08/17/21 08:59 Last Admin: 07/29/21 08:29 Dose: 5 units Documented by: Ipratropium [place]win (Ipratropium Hfa Inhaler (Combivent Respimat P&T Subs)) 1 puffs INH QIDR [facility] Stop: 08/17/21 06:59 Last Admin: 07/29/21 10:50 Dose: 1 puffs Documented by: Loperamide HCl (Loperamide Hcl 2 Mg Cap) 2 mg PO Q8H PRN PRN Reason: Diarrhea Stop: 08/17/21 12:17 Last Admin: 07/18/21 12:41 Dose: 2 mg Documented by: Metoprolol Tartrate (Metoprolol Tartrate 25 Mg Tab) 25 mg PO BID [facility] Stop: 08/17/21 08:59 Last Admin: 07/29/21 08:28 Dose: 25 mg Documented by: Miscellaneous (Carbohydrates For Hypoglycemia ) 15 - 30 gm PO UD PRN PRN Reason: Hypoglycemia Protocol Stop: 08/16/21 23:28 Nystatin (Nystatin Powder 15gm Btl) 1 appln EXT BID [facility] Stop: 08/18/21 11:44 Last Admin: 07/29/21 08:30 Dose: 1 appln Documented by: Pantoprazole Sodium (Pantoprazole 40 Mg Tab) 40 mg PO HS [facility] Stop: 08/17/21 20:59 Last Admin: 07/28/21 21:02 Dose: 40 mg Documented by: Simvastatin (Simvastatin 20 Mg Tab) 20 mg PO HS [facility] Stop: 08/17/21 20:59 Last Admin: 07/18/21 21:04 Dose: 20 mg Documented by: Warfarin Sodium (Warfarin Sod 2 Mg Tab) 2 mg PO DAILY@1600 [facility] Stop: 08/22/21 15:59 Last Admin: 07/28/21 16:28 Dose: 2 mg Documented by: (1) Diastolic CHF Heart failure chronicity: acute on chronic Qualified Code(s): I50.33 - Acute on chronic diastolic (congestive) heart failure (2) COPD (chronic obstructive pulmonary disease) COPD type: COPD with acute exacerbation Qualified Code(s): J44.1 - Chronic obstructive pulmonary disease with (acute) exacerbation
[2021-07-29] MEDS: WARFARIN SOD 2 MG TAB PO SCH (17:03)
[2021-07-29] MEDS: PANTOprazole 40 MG TAB PO SCH (21:07)
[2021-07-30] MEDS: ACETAMINOPHEN 325 MG TAB PO PRN ×2 (02:01→11:48)
[2021-07-30] MEDS ORDERED: MICONAZOLE NITRATE POWDER 43 GM EXT PRN (06:05)
[2021-07-30] MEDS: Albuterol HFA 8 GM Inhaler (Combivent Respimat P&T Subs) INH SCH ×4 (06:58→19:09)
[2021-07-30] MEDS: Ipratropium HFA Inhaler (Combivent Respimat P&T Subs) INH SCH ×4 (06:58→19:10)
[2021-07-30 08:30] LABS: Basophils # (auto) 0.04 K/uL (0-0.2); Basophils % (auto) 0.8 %; Eosinophils # (auto) 0.21 K/uL (0-0.5); Hematocrit (blood only) 31.6 % (37-47); Hemoglobin 9.3 g/dL (12.0-16.0); Immature Granulocytes # (auto) 0.04 K/uL (0.00-0.02); Immature Granulocytes % (auto) 0.8 %; Lymphocytes # (auto) 0.94 K/uL (1.2-3.4); Lymphocytes % (auto) 17.8 %; Mean Corpuscular Hemoglobin 25.7 pg (25-34); Mean Corpuscular Hgb Conc 29.4 g/dL (32-36); Mean Corpuscular Volume 87.3 fL (80-100); Mean Platelet Volume 11.1 fL (7.4-10.4); Monocytes # (auto) 0.38 K/uL (0.11-0.59); Monocytes % (auto) 7.2 %; Neutrophils # (auto) 3.67 K/uL (1.4-6.5); Neutrophils % (auto) 69.4 %; Platelet Count 206 K/uL (130-400); RDW Coefficient of Variation 17.9 % (11.5-14.5); RDW Standard Deviation 57.7 fL (36.4-46.3); Red Blood Count 3.62 M/uL (4.2-5.4); White Blood Count 5.28 K/uL (4.8-10.8)
[2021-07-30 08:48] LABS: Calcium 7.1 mg/dl (8.5-10.1); Creatinine Clr Calc Pharmacy 73.1 ml/min; Est GFR (African American) 92.3 ml/min; Est GFR (Non-African American) 79.7 ml/min; Potassium 3.8 mmol/L (3.5-5.1)
[2021-07-30] MEDS: FERROUS SULFATE 325 MG TAB PO SCH (08:48)
[2021-07-30] MEDS: FLUTICASONE/VILANTEROL 100/25MCG 14 PUFFS/INHALER INH SCH (08:49)
[2021-07-30 08:50] LABS: INR 4.9 (0.9-1.1); Prothrombin Time 47.6 Seconds (9.0-12.0)
[2021-07-30] MEDS: INSULIN GLARGINE SOLOSTAR 100 UNITS/ML 3 ML PEN SC SCH (08:50)
[2021-07-30] MEDS: METOPROLOL TARTRATE 25 MG TAB PO SCH ×2 (08:50→22:32)
[2021-07-30] MEDS: NYSTATIN POWDER 15GM BTL EXT SCH ×2 (08:51→21:43)
[2021-07-30] MEDS: INSULIN ASPART PER UNIT SC SCH ×4 (08:56→21:42)
--- NOTE | 2021-07-30 17:53 | Hospitalist Progress Note ---
Date of Service July 30, 2021 Assessment & Plan (1) Bilateral lower leg cellulitis: (2) Supratherapeutic INR: Plan: #. Bilateral lower leg cellulitis #. Bacteremia Sepsis on admission, resolved Xray of Tibia and fibula showed Soft tissue swelling with no acute bony abnormality identified. Admitting wound culture positive for staph aureus 07/20 blood culture positive for gram-positive cocci Echo showed no evidence of vegetation. 07/21 blood culture: No growth after 5 days ID evaluated the patient, initially patient put on Dapto, later on discontinued due to elevated CPK level, then transitioned to cefazolin and doxycycline Patient is status post antibiotic. BLE cellulitis has improved. Patient will continue to need wound care. (#) Diarrhea in adult patient #. Electrolyte disturbances: Monitor and replete electrolytes as appropriate. Plan: Present on admission with recurrent episodes of watery diarrhea Possible related to viral gastroenteritis CT abd/pelvis showedno bowel obstruction 07/17 Stool study including C diff: negative Tolerating diet. Diarrhea improved after initiated Imodium prn Continue monitor electrolytes No more complaints of diarrhea (#) Chronic atrial fibrillation: #. 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 Patient will need close follow-up with Coumadin clinic as an outpatient #. Other chronic medical conditions: DM type II, diastolic CHF, COPD, nocturnal hypoxemia On sliding scale insulin while inpatient, continue with/resume home medications as and when appropriate. #. Elevated creatinine kinase Secondary to daptomycin use Repeat CPK tomorrow, continue to hold statin until then. DVT prophylaxis: Coumadin on hold due to elevated INR. CODE STATUS Full code Disposition: Awaiting placement, likely DC tomorrow to [facility]. Patient will need wound care and Coumadin clinic follow-up. PCP follow-up as well. PT/INR in 3 days upon discharge. Admission and Anticipated Discharge Date Admission Date: July 17, 2021 Subjective Patient seen and examined at bedside as a follow-up for bilateral lower leg cellulitis and bacteremia. Patient lying in bed, on room air, NAD, no new acute events overnight. Patient denies any fever/chills/chest pain/belly pain/sore throat/cough/palpitation/other review of symptoms. Patient reports eating and moving bowels okay. Physical Exam Physical Exam: GENERAL: Alert and oriented x3. NAD, on RA. HEENT: No pallor, no icterus. Pupils equal, round and reactive to light. Oral mucosa moist. NECK: No JVD, no neck masses. HEART: S1 and S2 heard. Regular rate and rhythm. No murmur, no gallop. RESPIRATORY SYSTEM: Normal AP diameter. No accessory muscle use. No wheezing, no crackles. ABDOMEN: Soft, bowel sounds present, nontender, no distention. CENTRAL NERVOUS SYSTEM: No facial droop. Speech is clear. Obeys simple commands. Moves extremities. EXTREMITIES: Trace BLE edema, chronic BLE skin changes, BLE leg dressings without soakage noted. Results & Data Results & Data ([facility]) Vital Signs (Past 12 Hours) Vital Signs Temp Pulse Pulse Resp BP Pulse Ox 07/30/21 15:24 87 17 96 07/30/21 14:42 36.5 C 80 18 112/60 95 07/30/21 14:15 93 H 07/30/21 10:50 85 18 96 07/30/21 10:42 36.7 C 82 18 122/71 95 07/30/21 07:19 36.3 C L 106 H 18 115/55 L 96 07/30/21 06:59 86 16 97 07/30/21 06:14 88
[2021-07-30] MEDS: PANTOprazole 40 MG TAB PO SCH (22:32)
[2021-07-31] MEDS: Albuterol HFA 8 GM Inhaler (Combivent Respimat P&T Subs) INH SCH ×2 (07:19→11:30)
[2021-07-31] MEDS: Ipratropium HFA Inhaler (Combivent Respimat P&T Subs) INH SCH ×2 (07:20→11:30)
[2021-07-31] MEDS: METOPROLOL TARTRATE 25 MG TAB PO SCH (08:10)
[2021-07-31] MEDS: FERROUS SULFATE 325 MG TAB PO SCH (08:10)
[2021-07-31] MEDS: INSULIN GLARGINE SOLOSTAR 100 UNITS/ML 3 ML PEN SC SCH (08:11)
[2021-07-31] MEDS: NYSTATIN POWDER 15GM BTL EXT SCH (08:11)
[2021-07-31] MEDS: FLUTICASONE/VILANTEROL 100/25MCG 14 PUFFS/INHALER INH SCH (08:11)
[2021-07-31] MEDS: INSULIN ASPART PER UNIT SC SCH (08:13)
[2021-07-31 08:39] LABS: INR 3.8 (0.9-1.1); Prothrombin Time 37.8 Seconds (9.0-12.0)
--- NOTE | 2021-07-31 12:24 | Discharge Summary ---
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 She complains of a significant amount of diarrhea, nausea and generalized weakness. She has frequent stool throughout the day, described as watery. She denies any hematochezia or melena. She denies any fever, chills, sweats, lightheadedness, dizziness, chest pain, v omiting, abdominal pain. She does have chronic shortness of breath but feels this is unchanged. She denies any ruy abdominal pain except for mild cramping associate with diarrhea. It resolves after a bowel movement. She denies any change in urination. She lives alone at home. Over the last 3 days she has noted increased difficulty in ambulating through home. Even 50 feet is difficult for her. She does wear 2 L of oxygen at bedtime and occasionally throughout the day. She also has increased redness and wounds to her bilateral lower extremities. Granddaughter at bedside states that she refuses to go to the wound center. She was hospitalized approximately 1 month ago secondary to bilateral cellulitis. Granddaughter feels her legs are much worse. In ED patient remained hemodynamically stable. Lab work notable for mild leukocytosis 11.94, H&H 10.9 and 34.9, potassium 5.3, BUN 70, creatinine 2.44, calcium 6.4. She is a stool culture pending. Of significance patient was carlo ated with a course of antibiotics for cellulitis to her legs approximately 1 month ago. In ED patient received IV fluid. Admission Exam Per Admitting Provider Constitutional: Chronically ill-appearing female, vitals as above, NAD, sitting up in bed, pleasant, conversing easily Head: Normocephalic, Atraumatic Eyes: PERRL, conjunctivae normal, anicteric sclerae ENMT: external ear and nose normal, oropharynx normal dry mucous membranes Neck: trachea midline, no thyromegaly normal visual inspection Respiratory: normal respiratory effort, lungs clear to auscultation, no wheeze, rales, rhonchi. Normal insp/exp effort, no accessory muscle use Cardiovascular: Regular rate, irregular rhythm, no murmur, bilateral lower extremity nonpitting edema, surrounding bilateral pretibial erythema with wounds noted in very stages of healing, Vessels: no JVD or carotid bruit Chest: normal inspection of chest Abdomen: normal bowel sounds, soft, nontender, no hepatosplenomegaly Musculoskeletal: no cyanosis or clubbing, active range of motion x4 Skin: Bilateral extremity cellulitis right greater than left, no rashes, warm a nd dry normal turgor Neurologic: PERRL, EOMI, accommodation nl, no face palsy, no dysarthria CN's II-XI intact bilaterally and moves all extremities Psychiatric: A+Ox3, euthymic affect Lymphatic: no cervical or axillary lymphadenopathy : Sacral erythema Principal Diagnosis Bilateral lower leg cellulitis Bacteremia Discharge Exam GENERAL: Alert and oriented x3. NAD, on RA. HEENT: No pallor, no icterus. Pupils equal, round and reactive to light. Oral mucosa moist. NECK: No JVD, no neck masses. HEART: S1 and S2 heard. Regular rate and rhythm. No murmur, no gallop. RESPIRATORY SYSTEM: Normal AP diameter. No accessory muscle use. No wheezing, no crackles. ABDOMEN: Soft, bowel sounds present, nontender, no distention. CENTRAL NERVOUS SYSTEM: No facial droop. Speech is clear. Obeys simple commands. Moves extremities. EXTREMITIES: Trace BLE edema, chronic BLE skin changes, BLE leg dressings without soakage noted. No erythema noted. Discharge Data Allergies Allergy/AdvReac Type Severity Reaction Status Date / Time metformin Allergy Severe EDEMA FACE Verified 07/17/21 18:41 AND HANDS, ITCHY ciprofloxacin Allergy Intermediate RASH Verified 07/17/21 18:41 clindamycin Allergy Intermediate RASH Verified 07/17/21 18:41 pollen extracts Allergy Mild RUNNY NOSE Verified 07/17/21 18:41 Cephalosporins Allergy Unknown Unknown Verified 07/17/21 18:41 montelukast [From Singulair] Allergy Unknown CAN'T Verified 07/17/21 18:41 REMEMBER Penicillins Allergy Unknown CAN'T Verified 07/17/21 18:41 REMEMBER Sulfa (Sulfonamide Allergy Unknown CAN'T Verified 07/17/21 18:41 Antibiotics) REMEMBER Consultations 07/17/21 20:05 ED Decision to Admit Stat 07/19/21 19:49 Consult Infectious Diseases Routine Ordered Studies 07/17/21 21:11 CT abd pelvis wo con Urgent 07/19/21 20:38 CT cervical spine wo con Urgent CT head/brain wo con Urgent CT shoulder LT wo con Urgent CT shoulder RT wo con Urgent Hospital Course (1) Bilateral lower leg cellulitis: (2) Supratherapeutic INR: She was managed for the following: #. Bilateral lower leg cellulitis #. Bacteremia Sepsis on admission, resolved Xray of Tibia and fibula showed Soft tissue swelling with no acute bony abnormality identified. Admitting wound culture positive for staph aureus 07/20 blood culture positive for gram-positive cocci Echo showed no evidence of vegetation. 07/21 blood culture: No growth after 5 days ID evaluated the patient, initially patient put on Dapto, later on discontinued due to elevated CPK level, then transitioned to cefazolin and doxycycline Patient is status post antibiotic. BLE cellulitis has improved. Patient will continue to need wound care. (#) Diarrhea in adult patient #. Electrolyte disturbances: Monitor and replete electrolytes as appropriate. Plan: Present on admission with recurrent episodes of watery diarrhea Possible related to viral gastroenteritis CT abd/pelvis showedno bowel obstruction 07/17 Stool study including C diff: negative Tolerating diet. Diarrhea improved after initiated Imodium prn No more complaints of diarrhea (#) Chronic atrial fibrillation: #. Elevated INR Plan: Chronic atrial fibrillation: 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 Rate controlled on metoprolol INR still supratherapeutic, skip dose of warfarin today, start taking warfarin from tomorrow. Get a PT/INR done in 2 to 3 days upon discharge, close follow-up with Coumadin clinic for necessary dose adjustment of warfarin. #. Other chronic medical conditions: DM type II, diastolic CHF, COPD, nocturnal hypoxemia On sliding scale insulin while inpatient, continue with/resume home medications as and when appropriate. #. Elevated creatinine kinase Secondary to daptomycin use CPK normalized. CODE STATUS Full code Patient being discharged to senior care with following instruction at the point of discharge: Follow-up with your primary care physician within a week time. You will need continued wound care upon discharge. Continue with physical therapy upon discharge. Get your blood work PT/INR done in 3 days upon discharge. Your warfarin dose is reduced to 1 mg daily throughout the week. Start taking your warfarin from 08/01. Close follow-up with Coumadin clinic upon discharge for management and necessary dose adjustment of warfarin. Get your blood work CBC and BMP done in a week time upon discharge. Take your medications as prescribed. Total Time Total Time Spent Total Time Spent (In Minutes): 35 Discharge Plan Discharge Items Patient Disposition: Transfer Alf Fac Reason For Visit: ARF, SEPSIS Discharge Diagnosis: Bilateral lower leg cellulitis Bacteremia Activity: Resume your previous activity Non-emergency contact: Primary Care Provider Call non-emergency contact if: you have any medication questions, your symptoms worsen, your pain is not controlled and your temperature is above 101 Follow-up/Referrals: Jimi Sanchez, [Primary Care Provider] - Diet: Carb Consistent or DM2, Heart Healthy and Low Fiber Addtl Attending Provider Instructions: Follow-up with your primary care physician within a week time. You will need continued wound care upon discharge. Continue with physical therapy upon discharge. Get your blood work PT/INR done in 3 days upon discharge. Your warfarin dose is reduced to 1 mg daily throughout the week. Start taking your warfarin from 08/01. Close follow-up with Coumadin clinic upon discharge for management and necessary dose adjustment of warfarin. Get your blood work CBC and BMP done in a week time upon discharge. Take your medications as prescribed. Pending Studies at Discharge: No Stand-Alone Forms: My [facility] Skilled Items Patient informed of condition?: Yes DNR: No Discharge Level of Care: Skilled Communicable Disease: No Discharge Prognosis: Stable Lines: None Urinary Catheter: No Medications and DC Order Prescriptions: New loperamide 2 mg Capsule 2 mg PO Q8H PRN (Reason: loose stool) Qty: 30 RF: 0 Continued Combivent Respimat 20-100 mcg/actuation mist 1 puffs INH QID RF: 0 Novolog U-100 Insulin aspart 100 unit/mL solution 10 units SQ TIDM RF: 0 simvastatin 20 mg Tablet 20 mg PO HS RF: 0 omeprazole 20 mg Capsule,Delayed Release(Dr/Ec) 20 mg PO HS RF: 0 Lantus Solostar U-100 Insulin 100 unit/mL (3 mL) insulin pen 15 units SUBCUT HS RF: 0 ferrous sulfate [iron] 325 mg (65 mg iron) Tablet 325 mg PO QAM RF: 0 fluticasone propion-salmeterol [Wixela Inhub] 250-50 mcg/dose blister with device 1 inh inhalation BID RF: 0 furosemide 40 mg tablet 60 mg PO DAILY RF: 0 acetaminophen [Tylenol] 325 mg Tablet 650 mg PO Q4 PRN (Reason: Pain) RF: 0 metoprolol tartrate 50 mg tablet 50 mg PO BID RF: 0 albuterol sulfate 90 mcg/actuation Hfa Aerosol Inhaler 1 inh INHALATION Q4 PRN (Reason: Shortness Of Breath Or Wheezing) RF: 0 clotrimazole 1 % cream 1 applic TOPICAL BID RF: 0 magnesium oxide 400 mg magnesium Tablet 400 mg PO DAILY RF: 0 lisinopril 5 mg tablet 5 mg PO DAILY Qty: 30 RF: 0 calcium carbonate-vitamin D3 [Calcium 500 + D] 500 mg-5 mcg (200 unit) Tablet 1 tab PO DAILY RF: 0 spironolactone 50 mg tablet 50 mg PO DAILY RF: 0 warfarin 2 mg Tablet 1 mg PO SUTUTHSA RF: 0 Changed warfarin 2 mg Tablet 1 mg PO DAILY Qty: 0 RF: 0 metoprolol tartrate 50 mg tablet 25 mg PO BID Qty: 0 RF: 0 Discontinued warfarin 2 mg tablet 2 mg PO MOWEFR RF: 0 Discharge Orders: Discharge Order (Routine); Ordered 07/31/21 Ordered By: Jose Bryant Admission Data Admit Date/Time: 07/17/21 21:22 Attending Provider: Jose Bryant Admit Provider: Nico Gilman Primary Care Provider: Jimi Sanchez Other Providers: Nico Gilman ; Toi Bagley ; Gloria Narayan ; Asad Woodson I. ; Manuel Cartagena II ; Oneida Francis ; Blair Fofana ; Abhilash Reynoso ; Raghav Ellis [facility]
== END 2021-07-31 13:20 | DRG 872 ==
LOC: ED 17:54 → EDINP 21:22 → SUATTDRO 21:22 → EDINP 07-18 06:05 → 2S 07-18 06:36 → 2N 07-18 18:22

== ENCOUNTER 2021-08-06 15:10 | Inpatient (IN) ==
--- NOTE | 2021-08-06 16:15 | Emergency Department Note ---
History of Present Illness General Chief complaint: Illness Time Seen by Provider: 08/06/21 15:58 Source: patient and family (Son Who is at the bedside) Mode of arrival: ambulatory Limitations: no limitations History of Present Illness This patient is a 80-year-old female who comes in after having continuing low calcium and magnesium. She was seen here yesterday with similar complaints she did receive some IV calcium. She says she feels lousy she has tingling and [id number] in her hands bilaterally she has low back pain mostly on the left no dysuria hematuria normal bowel movements without diarrhea or blood no chest pain or shortness of breath she has had issues with cellulitis and chronic lower extremity edema. She had cellulitis and says is healing but her legs still hurt chronically. No fall or trauma. No syncope or dizziness or palpitations. Home Medications Medication Instructions Recorded Confirmed Type omeprazole 20 mg capsule,delayed 20 mg PO HS 05/08/18 08/06/21 History release simvastatin 20 mg tablet 20 mg PO HS 05/08/18 08/06/21 History ferrous sulfate 325 mg (65 mg 325 mg PO .DAILY IN AFTERNOON 07/30/18 08/06/21 History iron) tablet (iron) insulin glargine 100 unit/mL (3 15 units SUBCUT HS ml 10/03/18 08/06/21 History mL) subcutaneous pen (Lantus Solostar U-100 Insulin) ipratropium 20 mcg-albuterol 100 1 puffs INH QID 10/03/18 08/06/21 History mcg/actuation mist for inhalation (Combivent Respimat) fluticasone 250 mcg-salmeterol 50 1 inh INHALATION BID 03/28/19 08/06/21 History mcg/dose blistr powdr for inhalation (Wixela Inhub) acetaminophen 325 mg tablet 650 mg PO Q4 PRN 06/02/21 08/06/21 History (Tylenol) magnesium oxide 400 mg PO QAM 06/02/21 08/06/21 History doxycycline hyclate 100 mg tablet 100 mg PO BID 10 Days #20 tab 08/05/21 08/06/21 Rx lisinopril 5 mg tablet 5 mg PO QAM 08/05/21 08/06/21 History warfarin 2 mg tablet 1 mg PO DAILY 08/05/21 08/06/21 History acetaminophen 325 mg tablet 650 mg PO QID PRN MDD 3g 08/06/21 08/06/21 History calcium carbonate 500 mg-vitamin 1 tab PO BID 08/06/21 08/06/21 History D3 10 mcg (400 unit) tablet (Calcium 500 + D) cholecalciferol (vitamin D3) 25 50 mcg PO DAILY 08/06/21 08/06/21 History mcg (1,000 unit) tablet (Vitamin D3) docusate sodium 100 mg capsule 100 mg PO .Q 24HR PRN 08/06/21 08/06/21 History (Colace) furosemide 20 mg tablet 60 mg PO UD 08/06/21 08/06/21 History insulin aspart U-100 100 unit/mL 0 unit SUBCUT AC 08/06/21 08/06/21 History (3 mL) subcutaneous pen (Novolog Flexpen U-100 Insulin aspart) metoprolol tartrate 25 mg tablet 50 mg PO AMHS 08/06/21 08/06/21 History nystatin 100,000 unit/gram topical 1 applic TOPICAL AMHS 08/06/21 08/06/21 History cream spironolactone 50 mg tablet 50 mg PO QAM 08/06/21 08/06/21 History warfarin 1 mg tablet 1 mg PO HS 08/06/21 08/06/21 History Allergies Allergy/AdvReac Type Severity Reaction Status Date / Time metformin Allergy Severe EDEMA FACE Verified 08/05/21 14:14 AND HANDS, ITCHY ciprofloxacin Allergy Intermediate RASH Verified 08/05/21 14:14 clindamycin Allergy Intermediate RASH Verified 08/05/21 14:14 pollen extracts Allergy Mild RUNNY NOSE Verified 08/05/21 14:14 Cephalosporins Allergy Unknown Unknown Verified 08/05/21 14:14 montelukast [From Singulair] Allergy Unknown CAN'T Verified 08/05/21 14:14 REMEMBER Penicillins Allergy Unknown CAN'T Verified 08/05/21 14:14 REMEMBER Sulfa (Sulfonamide Allergy Unknown CAN'T Verified 08/05/21 14:14 Antibiotics) REMEMBER Past Med/Surg History Medical History (Updated 08/07/21 @ 13:02 by Ranjan Triana MD) A-fib Cellulitis CKD (chronic kidney disease) stage 3, GFR 30-59 ml/min COPD (chronic obstructive pulmonary disease) Diastolic CHF DM type 2 (diabetes mellitus, type 2) Dyslipidemia Hypomagnesemia Hypoxemic respiratory failure, chronic Nocturnal hypoxemia Obesity hypoventilation syndrome Osteoarthritis Pacemaker infection s/p removal Sepsis Staphylococcus aureus bacteremia Tachycardia-bradycardia syndrome Type 2 diabetes mellitus Surgical History History of cataract surgery History of hysterectomy History of total left knee replacement S/P adenoidectomy Family History Mother Diabetes Heart disease Social History Smoking Status: Former smoker Tobacco Type: Cigarettes Second Hand Exposure: Yes; Hx Alcohol Use: No Hx Substance Use: No Preferred Language: Barbadian Communication Ability: Effective Visual Impairment: No Limitations Hearing Ability: Normal Territory Account Representative Required: No Beliefs That Will Affect Care: None marital status: Single Current Living Situation: Alone Current Living Situation Comment: Lives alone, son + granddaughter live nearby current occupational status: retired How many Children do You have: 1 Other Information That Helps Us Care for You: No Feels Safe at Home: Yes Safety Concerns: Feels Safe At This Time Assistive Devices: Denture - Upper, Glasses and Oxygen - Continuous Review of Systems A total of 10 systems reviewed and were otherwise negative Physical Exam Vital Signs Vital Signs - 24 hr 08/06/21 15:00 08/06/21 15:18 08/06/21 15:30 Temperature 36.5 C Temperature Source Oral Pulse Rate 94 H 91 H 92 H Pulse Rate from SpO2 Sensor 95 H 87 Pulse Rhythm Regular Respiratory Rate 16 23 37 H Respiratory Effort / Characteristics Non-Labored Respiratory Depth Normal Blood Pressure 112/78 Blood Pressure Mean 89 Pulse Oximetry 94 95 95 Oxygen Delivery Method Room Air Sepsis Recent Fever Within 48 Hours No Sepsis New/Unexplained Change in Mental Status N/A Sepsis Action Taken by Nursing No Action Required 08/06/21 15:31 08/06/21 16:00 08/06/21 16:30 Temperature Temperature Source Pulse Rate 92 H 94 H 100 H Pulse Rate from SpO2 Sensor 85 87 104 H Pulse Rhythm Respiratory Rate 35 H 23 39 H Respiratory Effort / Characteristics Respiratory Depth Blood Pressure 140/72 124/78 Blood Pressure Mean 94 93 Pulse Oximetry 95 96 91 Oxygen Delivery Method Sepsis Recent Fever Within 48 Hours Sepsis New/Unexplained Change in Mental Status Sepsis Action Taken by Nursing 08/06/21 16:31 Temperature Temperature Source Pulse Rate 92 H Pulse Rate from SpO2 Sensor 96 H Pulse Rhythm Respiratory Rate 31 H Respiratory Effort / Characteristics Respiratory Depth Blood Pressure 157/100 H Blood Pressure Mean 119 Pulse Oximetry 96 Oxygen Delivery Method Sepsis Recent Fever Within 48 Hours Sepsis New/Unexplained Change in Mental Status Sepsis Action Taken by Nursing General: Well developed well nourished iill-appearing older female who appears in no acute distress, breathing comfortably on room air. Normal speech HEENT: Normal cephalic atraumatic. Pupils are equal round and reactive to light. Extraocular movements are intact. Oropharynx is pink with moist mucous membranes. No swelling of the mouth lips or tongue. Neck: Supple with a midline trachea. No meningeal signs or stiffness, no JVD or bruits. No Stridor. Chest: Clear to auscultation bilaterally. No wheezes or rhonchi. No increased work of breathing. Heart: Regular rate and rhythm without murmurs or gallops. Abdomen: Soft nontender, nondistended without rebound guarding or rigidity. Extremities: No cyanosis clubbing, does have trace to 1+ bilateral lower extremity edema mild pink discoloration in her shins. No calf tenderness or assymetry Spine/Back. Non tender to palpation. No CVA tenderness Skin: Good turgor without rashes. Neurologic exam: Cranial nerves two through 12 are intact. Motor and sensation are intact and symmetrical throughout. Course Administered Medications Acetaminophen (Acetaminophen 325 Mg Tab) 650 mg PO Q4H PRN PRN Reason: Pain or Fever Stop: 09/05/21 20:50 Last Admin: 08/07/21 11:15 Dose: 650 mg Documented by: [id number] Albuterol (Albuterol Hfa 8 Gm Inhaler (Combivent Respimat P&T Subs)) 1 puffs INH QIDR [facility] Stop: 09/06/21 06:59 Last Admin: 08/07/21 11:08 Dose: 1 puffs Documented by: [id number] Admin: 08/07/21 07:36 Dose: 1 puffs Documented by: [id number] Cefdinir (Cefdinir 300 Mg Cap) 300 mg PO BID [facility] Stop: 08/11/21 20:59 Last Admin: 08/07/21 08:14 Dose: 300 mg Documented by: [id number] Admin: 08/06/21 23:01 Dose: 300 mg Documented by: [id number] Doxycycline Hyclate (Doxycycline Hyclate 100 Mg Cap) 100 mg PO Q12H [facility] Stop: 08/16/21 17:59 Last Admin: 08/07/21 04:55 Dose: 100 mg Documented by: [id number] Admin: 08/06/21 22:08 Dose: 100 mg Documented by: [id number] Famotidine (Famotidine 20 Mg Tab) 20 mg PO QAM [facility] Stop: 09/06/21 10:44 Last Admin: 08/07/21 11:12 Dose: 20 mg Documented by: [id number] Fluticasone/Vilanterol (Fluticasone/Vilanterol 200/25mcg 14 Puffs/Inhaler) 1 puffs INH DAILY [facility] Stop: 09/06/21 08:59 Last Admin: 08/07/21 08:13 Dose: 1 puffs Documented by: [id number] Insulin Glargine (Insulin Glargine Solostar 100 Units/Ml 3 Ml Pen) 15 units SQ HS [facility] Stop: 09/05/21 20:59 Last Admin: 08/06/21 22:19 Dose: 15 units Documented by: [id number] Cosigned by: [id number] Ipratropium [place] (Ipratropium Hfa Inhaler (Combivent Respimat P&T Subs)) 1 puffs INH QIDR [facility] Stop: 09/06/21 06:59 Last Admin: 08/07/21 11:08 Dose: 1 puffs Documented by: [id number] Admin: 08/07/21 07:35 Dose: 1 puffs Documented by: [id number] Lisinopril (Lisinopril 5 Mg Tab) 5 mg PO QAM [facility] Stop: 09/06/21 08:59 Last Admin: 08/07/21 08:14 Dose: 5 mg Documented by: [id number] Magnesium Chloride (Magnesium Chloride 64mg Delayed Rel Tab) 64 mg PO BID [facility] Stop: 09/06/21 09:54 Last Admin: 08/07/21 11:12 Dose: 64 mg Documented by: [id number] Metoprolol Tartrate (Metoprolol Tartrate 25 Mg Tab) 25 mg PO BID [facility] Stop: 09/05/21 20:59 Last Admin: 08/07/21 08:14 Dose: 25 mg Documented by: [id number] Admin: 08/06/21 22:06 Dose: 25 mg Documented by: [id number] Multivitamins/Minerals (Calcium 600mg + Vit D 400 Iu Tab) 1 tab PO BID [facility] Stop: 09/05/21 20:59 Last Admin: 08/07/21 08:14 Dose: 1 tab Documented by: [id number] Admin: 08/06/21 22:08 Dose: 1 tab Documented by: [id number] Nystatin (Nystatin Cr 15 Gm Tube) 1 appln EXT BID [facility] Stop: 09/05/21 20:59 Last Admin: 08/07/21 08:14 Dose: 1 appln Documented by: [id number] Admin: 08/06/21 22:04 Dose: 1 appln Documented by: [id number] Simvastatin (Simvastatin 20 Mg Tab) 20 mg PO HS [facility] Stop: 09/05/21 20:59 Last Admin: 08/06/21 22:06 Dose: 20 mg Documented by: [id number] Spironolactone (Spironolactone 25 Mg Tab) 50 mg PO QAM [facility] Stop: 09/06/21 08:59 Last Admin: 08/07/21 08:13 Dose: 50 mg Documented by: [id number] Vitamin D (Cholecalciferol 5,000 Units 125 Mcg Tab) 5,000 units PO QAM [facility] Stop: 09/06/21 09:49 Last Admin: 08/07/21 11:12 Dose: 5,000 units Documented by: [id number] Discontinued Medications Magnesium Sulfate/Dextrose (Magnesium Sulfate / D5w) 1 gm in 100 mls @ 50 mls/hr IV Q2H [facility] Stop: 08/06/21 20:59 Last Infusion: 08/07/21 00:22 Dose: 0 mls/hr Documented by: [id number] Admin: 08/06/21 22:09 Dose: 50 mls/hr Documented by: [id number] Infusion: 08/06/21 20:05 Dose: 0 mls/hr Documented by: [id number] Admin: 08/06/21 17:23 Dose: 50 mls/hr Documented by: [id number] Calcium Gluconate () 1,000 mg in 60 mls @ 240 mls/hr IV NOW ONE Stop: 08/06/21 17:14 Last Infusion: 08/06/21 17:38 Dose: 0 mls/hr Documented by: [id number] Admin: 08/06/21 17:23 Dose: 240 mls/hr Documented by: [id number] Calcium Gluconate 1,000 mg/ (Dextrose) 60 mls @ 240 mls/hr IV ONE ONE Stop: 08/06/21 18:29 Last Infusion: 08/06/21 19:04 Dose: 0 mls/hr Documented by: [id number] Admin: 08/06/21 18:45 Dose: 240 mls/hr Documented by: [id number] Magnesium Sulfate/Dextrose (Magnesium Sulfate / D5w) 1 gm in 100 mls @ 50 mls/hr IV Q2H [facility] Stop: 08/07/21 00:59 Last Infusion: 08/07/21 07:08 Dose: 0 mls/hr Documented by: [id number] Admin: 08/07/21 05:08 Dose: 50 mls/hr Documented by: [id number] Infusion: 08/07/21 02:26 Dose: 0 mls/hr Documented by: [id number] Admin: 08/07/21 00:03 Dose: 50 mls/hr Documented by: [id number] Magnesium Sulfate/Dextrose (Magnesium Sulfate / D5w) 1 gm in 100 mls @ 50 mls/hr IV ONE ONE Stop: 08/07/21 03:56 Last Infusion: 08/07/21 04:59 Dose: 0 mls/hr Documented by: [id number] Admin: 08/07/21 02:49 Dose: 50 mls/hr Documented by: [id number] Calcium Gluconate 1,000 mg/ (Dextrose) 60 mls @ 240 mls/hr IV NOW ONE Stop: 08/07/21 02:12 Last Infusion: 08/07/21 04:09 Dose: 0 mls/hr Documented by: [id number] Admin: 08/07/21 02:27 Dose: 240 mls/hr Documented by: [id number] Magnesium Oxide (Magnesium Oxide 400 Mg Tab) 400 mg PO QAM [facility] Stop: 09/06/21 08:59 Last Admin: 08/07/21 08:14 Dose: 400 mg Documented by: [id number] Pantoprazole Sodium (Pantoprazole 40 Mg Tab) 40 mg PO HS [facility] Stop: 09/05/21 20:59 Last Admin: 08/06/21 22:07 Dose: 40 mg Documented by: [id number] Vitamin D (Cholecalciferol 1,000 Units 25 Mcg Tab) 2,000 units PO DAILY [facility] Stop: 09/06/21 08:59 Last Admin: 08/07/21 08:14 Dose: 2,000 units Documented by: [id number] Critical Care Time Critical Care Time: Yes Total Critical Care Time: 30 Due to the patient's significant electrolyte abnormalities and need for IV supplementation and cardiac monitoring and reassessment as well as consultation and admission, I have personally spent greater than 30 minutes of critical care time in the direct management of this patient. This includes bedside care, interpretation of diagnostic studies, and testing, discussion with consultants, patient, and family members, and other required patient management activities. This 30 minutes is in excess of all separately billable procedures. Medical Decision Making Differential Diagnosis Electrolyte or metabolic abnormality, ischemia, hypomagnesemia, infection, CHF, arrhythmia, covid Medical Records Attestation: I reviewed the patient's medical records. Home Medications Current Medication List: was personally reviewed by me Laboratory Data Attestation: I reviewed the patient's lab results. Result diagrams: 08/07/21 06:58 08/07/21 06:58 Lab Results 08/06/21 08/06/21 08/06/21 Range/Units 15:22 15:22 15:22 WBC 8.05 (4.8-10.8) K/uL RBC 3.66 L (4.2-5.4) M/uL Hgb 9.4 L (12.0-16.0) g/dL Hct 31.8 L (37-47) % MCV 86.9 (80-100) fL MCH 25.7 (25-34) pg MCHC 29.6 L (32-36) g/dL RDW Std Deviation 56.8 H (36.4-46.3) fL RDW Coeff of Silvana 17.9 H (11.5-14.5) % Plt Count 246 (130-400) K/uL MPV 11.8 H (7.4-10.4) fL Immature Gran % (Auto) 0.5 % Neut % (Auto) 71.2 % Lymph % (Auto) 15.8 % [place] % (Auto) 9.6 % Eos % (Auto) 2.4 % Baso % (Auto) 0.5 % Neut # (Auto) 5.74 (1.4-6.5) K/uL Lymph # (Auto) 1.27 (1.2-3.4) K/uL [place] # (Auto) 0.77 H (0.11-0.59) K/uL Eos # (Auto) 0.19 (0-0.5) K/uL Baso # (Auto) 0.04 (0-0.2) K/uL Immature Gran # (Auto) 0.04 H (0.00-0.02) K/uL PT 42.6 H (9.0-12.0) Seconds INR 4.3 H (0.9-1.1) Sodium 141 (136-145) mmol/L Potassium 4.0 (3.5-5.1) mmol/L Chloride 102 (98-107) mmol/L Carbon Dioxide 29 (21-32) mmol/L Anion Gap 10 (3-11) BUN 31 H (6-23) mg/dl Creatinine 1.49 H (0.6-1.2) mg/dl Est Cr Clr Drug Dosing 35.0 ml/min Est GFR ( Amer) 38.3 ml/min Est GFR (Non-Af Amer) 33.1 ml/min BUN/Creatinine Ratio 20.8 H (10-20) Glucose 80 (70-99(Fasting)) mg/dl Calcium 5.7 L* (8.5-10.1) mg/dl Magnesium < 0.5 L* (1.7-2.4) mg/dl Total Bilirubin 0.6 (0.2-1.0) mg/dl AST 20 (13-39) U/L ALT 3 L (7-52) U/L Alkaline Phosphatase 237 H (34-104) U/L B-Natriuretic Peptide (0-100) pg/ml Total Protein 6.9 (6.0-8.3) gm/dl Albumin 3.4 (3.4-5.0) gm/dl Globulin 3.5 (2.5-4.0) gm/dl Albumin/Globulin Ratio 1.0 (0.9-2) 08/06/21 Range/Units 16:35 WBC (4.8-10.8) K/uL RBC (4.2-5.4) M/uL Hgb (12.0-16.0) g/dL Hct (37-47) % MCV (80-100) fL MCH (25-34) pg MCHC (32-36) g/dL RDW Std Deviation (36.4-46.3) fL RDW Coeff of Silvana (11.5-14.5) % Plt Count (130-400) K/uL MPV (7.4-10.4) fL Immature Gran % (Auto) % Neut % (Auto) % Lymph % (Auto) % [place] % (Auto) % Eos % (Auto) % Baso % (Auto) % Neut # (Auto) (1.4-6.5) K/uL Lymph # (Auto) (1.2-3.4) K/uL [place] # (Auto) (0.11-0.59) K/uL Eos # (Auto) (0-0.5) K/uL Baso # (Auto) (0-0.2) K/uL Immature Gran # (Auto) (0.00-0.02) K/uL PT (9.0-12.0) Seconds INR (0.9-1.1) Sodium (136-145) mmol/L Potassium (3.5-5.1) mmol/L Chloride (98-107) mmol/L Carbon Dioxide (21-32) mmol/L Anion Gap (3-11) BUN (6-23) mg/dl Creatinine (0.6-1.2) mg/dl Est Cr Clr Drug Dosing ml/min Est GFR ( Amer) ml/min Est GFR (Non-Af Amer) ml/min BUN/Creatinine Ratio (10-20) Glucose (70-99(Fasting)) mg/dl Calcium (8.5-10.1) mg/dl Magnesium (1.7-2.4) mg/dl Total Bilirubin (0.2-1.0) mg/dl AST (13-39) U/L ALT (7-52) U/L Alkaline Phosphatase (34-104) U/L B-Natriuretic Peptide 228 H (0-100) pg/ml Total Protein (6.0-8.3) gm/dl Albumin (3.4-5.0) gm/dl Globulin (2.5-4.0) gm/dl Albumin/Globulin Ratio (0.9-2) Imaging Data Attestation: I personally reviewed and interpreted this imaging study as follows: My Impression: Chest xray-done yesterdayI have pulled it up on the computer and looked at it and she had no acute failure or infiltrate seen. Given her lack of pulmonary symptoms I do not feel the need to repeat another one ECG Data Attestation: I personally reviewed and interpreted this ECG as follows: Indication: + weakness Rate (beats per minute): 70 Rhythm: + atrial fibrillation ECG Intervals/blocks: + Normal QRS, + Normal QT and + Normal VA ECG [place]: + Normal ECG ST segments: + Normal ST segments ECG Findings: + Other (Baseline/artifact); no PACs or no PVCs Comparison ECG Date: from (08/05/21) Change: no significant change MDM Narrative This patient comes in as described above. She was placed on a ekg monitor tech room A9. She was sent here for abnormal electrolytes and not feeling well she apparently had a low calcium yesterday and was given IV calcium gluconate. Her EKG shows A. fib which is chronic and nonrapid. There is no significant prolongation of her QT or other intervals. IV was established multiple blood testing was obtained she was reassessed frequently. EKG and chest x-ray were obtained. Her calcium came back very low in the 5 range and magnesium was also very low. I did order 2 g IV mag as well as a gram of IV calcium gluconate. She will need further supplementation in the hospital as well. I have consulted the hospitalist to see her in ER for these measures. She does have mild renal insufficiency as well. Covid testing was negative. She was also found to be somewhat supratherapeutic on her INR. She has no evidence of active bleeding is a stable hemoglobin. She has no white count or fever to suggest infection. Continous cardiac monitoring: An order was placed in EMR for continuous cardiac monitoring. Upon my interpretation the patient was noted to be in a rate controlled A. 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
[2021-08-06 16:25] LABS: Basophils # (auto) 0.04 K/uL (0-0.2); Basophils % (auto) 0.5 %; Eosinophils # (auto) 0.19 K/uL (0-0.5); Eosinophils % (auto) 2.4 %; Hematocrit (blood only) 31.8 % (37-47); Hemoglobin 9.4 g/dL (12.0-16.0); Immature Granulocytes # (auto) 0.04 K/uL (0.00-0.02); Immature Granulocytes % (auto) 0.5 %; Lymphocytes # (auto) 1.27 K/uL (1.2-3.4); Lymphocytes % (auto) 15.8 %; Mean Corpuscular Hemoglobin 25.7 pg (25-34); Mean Corpuscular Hgb Conc 29.6 g/dL (32-36); Mean Corpuscular Volume 86.9 fL (80-100); Mean Platelet Volume 11.8 fL (7.4-10.4); Monocytes # (auto) 0.77 K/uL (0.11-0.59); Monocytes % (auto) 9.6 %; Neutrophils # (auto) 5.74 K/uL (1.4-6.5); Neutrophils % (auto) 71.2 %; Platelet Count 246 K/uL (130-400); RDW Coefficient of Variation 17.9 % (11.5-14.5); RDW Standard Deviation 56.8 fL (36.4-46.3); Red Blood Count 3.66 M/uL (4.2-5.4); White Blood Count 8.05 K/uL (4.8-10.8)
[2021-08-06 16:39] LABS: Alanine Aminotransferase 3 U/L (7-52); Albumin Level 3.4 gm/dl (3.4-5.0); Alkaline Phosphatase 237 U/L (34-104); Anion Gap 10 (3-11); Aspartate Aminotransferase 20 U/L (13-39); BUN Creatinine Ratio 20.8 (10-20); Bilirubin,Total 0.6 mg/dl (0.2-1.0); Blood Urea Nitrogen 31 mg/dl (6-23); Calcium 5.7 mg/dl (8.5-10.1); Carbon Dioxide 29 mmol/L (21-32); Chloride 102 mmol/L (98-107); Est GFR (African American) 38.3 ml/min; Est GFR (Non-African American) 33.1 ml/min; Globulin 3.5 gm/dl (2.5-4.0); Glucose 80 mg/dl (70-99(Fasting)); Magnesium < 0.5 mg/dl (1.7-2.4); Sodium 141 mmol/L (136-145); Total Protein 6.9 gm/dl (6.0-8.3)
[2021-08-06] MEDS ORDERED: CALCIUM GLUCONATE 1,000 MG/60 ML BAG IV ONE (17:00)
--- NOTE | 2021-08-06 17:19 | History & Physical Report ---
Date of Service August 06, 2021 Assessment & Plan (1) Hypomagnesemia: (2) Hypocalcemia: Plan: -Admit to telemetry -BMP recheck at 2100 -Calcium noted to be 5.7 on arrival, magnesium <0.5 -Started on calcium gluconate and magnesium IV in the ER, continue to replace wi th additional 1 g calcium gluconate and 2 g mag, trend labs at 2100 -Nephrology consulted, Dr. Lopez -EKG reviewed, will check am ekg as well - Check PTH, phosphorus and vit D level with am labs (3) Chronic anemia: Plan: -Chronic, stable, hemoglobin is 9.4, continue iron supplementation (4) Cellulitis: Plan: - BLE cellulitis, warmth, erythema, edema - will continue on doxycycline po which was started on 08/05 in the ER yesterday, as well as add cefdinir 300 mg po BID for coverage of UA which appears to be dirty. Follow urine culture. Afebrile, no wbc on admission (5) Chronic atrial fibrillation: Plan: -Anticoagulated on Coumadin, INR 4.3, will hold coumadin tonight, trend with a.m. labs. (6) DM type 2 (diabetes mellitus, type 2): Plan: -ISS with Accu-Cheks ACHS -Continue Lantus 15 units at bedtime with diet -Last A1c = 6.3 on 07/11/2021 per outpatient epic results review (7) Diastolic CHF: Plan: - Chronic, stable -last echo completed on 07/20/2021 Reviewed showing mild concentric LVH, EF of 60 to 65%, left atrium moderately dilated, right ventricle severely dilated, right atrium severely dilated, aortic valve sclerosis moderate, trace MR, moderate to severe TR, elevated right ventricular systolic pressure of 50 to 60 mmHg suggestive of pulmonary hypertension. There is no endocarditis found on mitral valve leaflets. (8) COPD (chronic obstructive pulmonary disease): Plan: -Chronic, stable continue inhalers DVT PPx: - teds, scds, Coumadin CODE: Full code Dispo: From home, likely to remain in the hospital x 1-2 days History of Present Illness Primary Care Provider: Jimi Sanchez, DO This is a 80 yo F with PMHx of A. fib on coumadin, diastolic CHF, tachy-job syndrome, DM type II, CKD stage III, COPD, HLD presents with acute hypomagnesemia and hypocalcemia from [facility]. She was seen in the ER yesterday on 08/05/2021 for hypocalcemia where she was given 1000 mg IV calcium gluconate. Repeat labs today show minimal improvement,so the KATHRYN[facility]Pablo at [facility] requested the patient come to the ER for admission. Yesterday her magnesium was 0.9, calcium was 6.1 today as outpatient. Upon arrival here her calcium was noted to be 5.7, and her magnesium is <0.5. Pt reports that she has had upper extremity numbness, cramping and tingling in her upper extremities bilaterally as well as in the posterior neck and in her mid back. This has been going on for several days and getting worse. She was here in the ER yesterday with similar complaints and low calcium and magnesium levels, but was treated and sent back to [facility]. Today she presents with her son and both people are irritated that she was not admitted yesterday. She denies any other acute complaints. She took her morning medications including Coumadin to her knowledge, and took a dose of Lasix last evening where she had increased urinary outs overnight. She was started on doxycycline yesterday here in the ER for possible cellulitis of her bilateral lower legs as they were somewhat red and warm, in the shaking/cramping in her arms and legs also happened at the beginning of her developing a worsening cellulitis approximately 1 month ago. She was started on 1 g calcium gluconate and magnesium 2 g IV in the ER. Nephrology will be consulted. Allergies Allergy/AdvReac Type Severity Reaction Status Date / Time metformin Allergy Severe EDEMA FACE Verified 08/05/21 14:14 AND HANDS, ITCHY ciprofloxacin Allergy Intermediate RASH Verified 08/05/21 14:14 clindamycin Allergy Intermediate RASH Verified 08/05/21 14:14 pollen extracts Allergy Mild RUNNY NOSE Verified 08/05/21 14:14 Cephalosporins Allergy Unknown Unknown Verified 08/05/21 14:14 montelukast [From Singulair] Allergy Unknown CAN'T Verified 08/05/21 14:14 REMEMBER Penicillins Allergy Unknown CAN'T Verified 08/05/21 14:14 REMEMBER Sulfa (Sulfonamide Allergy Unknown CAN'T Verified 08/05/21 14:14 Antibiotics) REMEMBER Home Medications Medication Instructions Recorded Confirmed Type omeprazole 20 mg capsule,delayed 20 mg PO HS 12/16/18 03/16/22 History release simvastatin 20 mg tablet 20 mg PO HS 05/08/18 08/06/21 History ferrous sulfate 325 mg (65 mg 325 mg PO .DAILY IN AFTERNOON 07/30/18 08/06/21 History iron) tablet (iron) insulin glargine 100 unit/mL (3 15 units SUBCUT HS ml 10/03/18 08/06/21 History mL) subcutaneous pen (Lantus Solostar U-100 Insulin) ipratropium 20 mcg-albuterol 100 1 puffs INH QID 10/03/18 08/06/21 History mcg/actuation mist for inhalation (Combivent Respimat) fluticasone 250 mcg-salmeterol 50 1 inh INHALATION BID 03/28/19 08/06/21 History mcg/dose blistr powdr for inhalation (Wixela Inhub) acetaminophen 325 mg tablet 650 mg PO Q4 PRN 06/02/21 08/06/21 History (Tylenol) magnesium oxide 400 mg PO QAM 06/02/21 08/06/21 History doxycycline hyclate 100 mg tablet 100 mg PO BID 10 Days #20 tab 08/05/21 08/06/21 Rx lisinopril 5 mg tablet 5 mg PO QAM 08/05/21 08/06/21 History warfarin 2 mg tablet 1 mg PO DAILY 08/05/21 08/06/21 History acetaminophen 325 mg tablet 650 mg PO QID PRN MDD 3g 08/06/21 08/06/21 History calcium carbonate 500 mg-vitamin 1 tab PO BID 08/06/21 08/06/21 History D3 10 mcg (400 unit) tablet (Calcium 500 + D) cholecalciferol (vitamin D3) 25 50 mcg PO DAILY 08/06/21 08/06/21 History mcg (1,000 unit) tablet (Vitamin D3) docusate sodium 100 mg capsule 100 mg PO .Q 24HR PRN 08/06/21 08/06/21 History (Colace) furosemide 20 mg tablet 60 mg PO UD 08/06/21 08/06/21 History insulin aspart U-100 100 unit/mL 0 unit SUBCUT AC 08/06/21 08/06/21 History (3 mL) subcutaneous pen (Novolog Flexpen U-100 Insulin aspart) metoprolol tartrate 25 mg tablet 50 mg PO AMHS 08/06/21 08/06/21 History nystatin 100,000 unit/gram topical 1 applic TOPICAL AMHS 08/06/21 08/06/21 History cream spironolactone 50 mg tablet 50 mg PO QAM 08/06/21 08/06/21 History warfarin 1 mg tablet 1 mg PO HS 08/06/21 08/06/21 History Past Med/Surg History Medical History A-fib SON (acute kidney injury) Cellulitis COPD (chronic obstructive pulmonary disease) Diastolic CHF DM type 2 (diabetes mellitus, type 2) Dyslipidemia Hypoxemic respiratory failure, chronic Nocturnal hypoxemia Obesity hypoventilation syndrome Osteoarthritis Pacemaker infection s/p removal Sepsis Staphylococcus aureus bacteremia Tachycardia-bradycardia syndrome Type 2 diabetes mellitus Surgical History History of cataract surgery History of hysterectomy History of total left knee replacement S/P adenoidectomy Family History Mother Diabetes Heart disease Social History Smoking Status: Never smoker Tobacco Type: Cigarettes Second Hand Exposure: Yes; Hx Alcohol Use: No Hx Substance Use: No Preferred Language: Romanian Communication Ability: Effective Visual Impairment: No Limitations Hearing Ability: Normal Relief Mate Required: No Beliefs That Will Affect Care: None marital status: Single Current Living Situation: Alone Current Living Situation Comment: Lives alone, son + granddaughter live nearby current occupational status: retired How many Children do You have: 1 Feels Safe at Home: Yes Assistive Devices: Glasses and Oxygen - at Night Review of Systems Review of Systems: Constitutional: No fever, sweats or chills Eyes: No diplopia, no worsening or blurred vision ENT: normal hearing, no trouble swallowing Respiratory: No cough, sputum, dyspnea at rest or on exertion Cardiovascular: No chest pain, tightness or palpitations Abdomen: No pain, nausea, vomiting, diarrhea or constipation Musculoskeletal: As per HPI. BLE erythema, edema and hx of cellulitis. Neurologic: No weakness, + upper extremity numbness/tingling and cramping, + balance problems with needing to be in wheelchair, and pivots and holds her own weight but does not walk. Psychiatric: No anxiety or depression Skin: chronic ulcers of lower legs, hx of cellulitis. Physical Exam Physical Exam: General: awake, alert, no apparent distress, obese with BMI of 37.5 Head: Normocephalic, atraumatic ENT: PERRL, EOMI, no pharyngeal exudate, mucous membranes moist Chest: Clear to auscultation, on room air, no adventitious breath sounds Cardiac: irregularly irregular, rate controlled, soft murmur, no JVD, normal peripheral pulses, good capillary refill Abdominal: NABS x 4 quadrants, soft, nondistended, nontender to palpation, no rebound or guarding Extremities: + chronic venous stasis changes of BLE, multiple ulcerations, erythema extending from the ankle to below the knee with some warmth, no peripheral edema, calfs nontender to palpation Psych: Normal mood and affect Neuro: AAO x 3, strength intact bilaterally and rated 5/5, no motor deficits, speech is clear, no peripheral sensory deficits Results & Data Results & Data ([facility]) Vital Signs (Past 12 Hours) Vital Signs Temp Pulse Resp BP Pulse Ox 08/06/21 16:31 92 H 31 H 157/100 H 96 08/06/21 16:30 100 H 39 H 91 08/06/21 16:00 94 H 23 124/78 96 08/06/21 15:31 92 H 35 H 140/72 95 08/06/21 15:30 92 H 37 H 95 08/06/21 15:18 91 H 23 95 08/06/21 15:00 36.5 C 94 H 16 112/78 94 Laboratory Results 08/06/21 08/06/21 08/06/21 16:35 15:22 15:22 WBC 8.05 RBC 3.66 L Hgb 9.4 L Hct 31.8 L MCV 86.9 MCH 25.7 MCHC 29.6 L RDW Std Deviation 56.8 H RDW Coeff of Silvana 17.9 H Plt Count 246 MPV 11.8 H Immature Gran % (Auto) 0.5 Neut % (Auto) 71.2 Lymph % (Auto) 15.8 Craig % (Auto) 9.6 Eos % (Auto) 2.4 Baso % (Auto) 0.5 Neut # (Auto) 5.74 Lymph # (Auto) 1.27 Craig # (Auto) 0.77 H Eos # (Auto) 0.19 Baso # (Auto) 0.04 Immature Gran # (Auto) 0.04 H Sodium 141 Potassium 4.0 Chloride 102 Carbon Dioxide 29 Anion Gap 10 BUN 31 H Creatinine 1.49 H Est Cr Clr Drug Dosing 35.0 Est GFR ( Amer) 38.3 Est GFR (Non-Af Amer) 33.1 BUN/Creatinine Ratio 20.8 H Glucose 80 Calcium 5.7 L* Magnesium < 0.5 L* Total Bilirubin 0.6 AST 20 ALT 3 L Alkaline Phosphatase 237 H B-Natriuretic Peptide 228 H Total Protein 6.9 Albumin 3.4 Globulin 3.5 Albumin/Globulin Ratio 1.0 ECG Additional Comments: Blood Pressure : / mmHG Vent. Rate : 088 BPM Atrial Rate : 081 BPM P-R Int : 000 ms QRS Dur : 096 ms QT Int : 408 ms P-R-T Axes : 000 -31 -27 degrees QTc Int : 493 ms Atrial fibrillation Left axis deviation Possible Anterolateral infarct (cited on or before 28-MAR-2019) Prolonged QT Abnormal ECG When compared with ECG of 17-JUL-2021 20:04, QRS axis Shifted left QT has lengthened Code Status & VTE Plan Code Status full code - discussed with pt at bedside along with her son. Supervising Physician Co-Signing Physician Notes Patient is a 80-year-old female with history of paroxysmal A. fib on Coumadin, diastolic CHF and other medical problems presents with history of abnormal labs. Patient was noted to be hypocalcemic while in ED yesterday and was given IV calcium gluconate. Patient states having upper extremity numbness, cramping and tingling extending sometimes to posterior part of the neck and mid back which has been gradually worse. Please review HPI for complete details of presentation. Blood work showed hemoglobin 9.4, supratherapeutic INR 4.3, creatinine 1.49, calcium 5.7, magnesium less than 0.5, alkaline phosphatase 237, BNP 228. Urinalysis suggestive of possible UTI. EKG shows history of atrial fibrillation, left axis deviation, prolonged QT. On exam patient is obese, no apparent distress, normocephalic atraumatic, EOMI, normal breath sounds, scattered crackles, irregularly irregular rhythm, no murmur, abdomen soft, nontender, normal bowel sounds, alert, awake, oriented, grossly no focal deficits, bilateral lower extremity edema, chronic venous stasis changes, mild erythema and multiple small wounds noted. Patient is admitted for management of hypokalemia, hypomagnesemia and possible bilateral cellulitis. Also to rule out UTI. Check PTH, vitamin D levels. Replace electrolytes as needed. Monitor BMP closely. Empirically started on doxycycline, cefdinir to cover cellulitis and UTI. Follow-up cultures. Hold Coumadin for supratherapeutic INR. Monitor INR. Repeat EKG in the morning. I personally reviewed the record. Patient is interviewed and examined at bedside. Patient's care is coordinated with Shelley Bernardo PA-C. Please refer to the documentation above for details of patient's presentation and for discussion of other issues. (1) Diastolic CHF Heart failure chronicity: acute on chronic Qualified Code(s): I50.33 - Acute on chronic diastolic (congestive) heart failure (2) Cellulitis Laterality: unspecified laterality Site of cellulitis: extremity Site of cellulitis of extremity: lower extremity Qualified Code(s): L03.119 - Cellulitis of unspecified part of limb (3) COPD (chronic obstructive pulmonary disease) COPD type: COPD with acute exacerbation Qualified Code(s): J44.1 - Chronic obstructive pulmonary disease with (acute) exacerbation
[2021-08-06] MEDS: MAGNESIUM SULFATE / D5W 1 GM/100 ML BAG IV SCH ×2 (17:23→22:09)
[2021-08-06] MEDS ORDERED: STAT IV STA (18:00)
[2021-08-06 18:09] LABS: INR 4.3 (0.9-1.1); Prothrombin Time 42.6 Seconds (9.0-12.0)
[2021-08-06] MEDS ORDERED: CALCIUM GLUCONATE 10% 1,000 MG in DEXTROSE 5% 50 ML IV ONE (18:15)
[2021-08-06] MEDS ORDERED: ACETAMINOPHEN 325 MG TAB PO PRN ×2 (20:51)
[2021-08-06] MEDS ORDERED: DOCUSATE SODIUM 100 MG CAP PO PRN (20:51)
[2021-08-06] MEDS ORDERED: ONDANSETRON INJ 2 MG/ML 2 ML VIAL IV PRN (20:51)
[2021-08-06] MEDS ORDERED: PANTOprazole 40 MG TAB PO SCH (21:00)
[2021-08-06] MEDS ORDERED: IPRATROPIUM BROMIDE/ALBUTEROL respimat INH INH SCH (21:00)
[2021-08-06 21:41] LABS: BUN Creatinine Ratio 21.7 (10-20); Creatinine Clr Calc Pharmacy 36.9 ml/min; Est GFR (Non-African American) 36.3 ml/min; Potassium 3.7 mmol/L (3.5-5.1)
[2021-08-06 21:45] LABS: Magnesium 0.7 mg/dl (1.7-2.4)
[2021-08-06] MEDS ORDERED: DEXTROSE 50% 50 ML SYRINGE IV PRN (21:45)
[2021-08-06] MEDS ORDERED: GLUCOSE 10 TABS/TUBE PO PRN (21:45)
[2021-08-06] MEDS ORDERED: GLUCAGON FOR INJ 1 MG VIAL IM PRN (21:45)
[2021-08-06] MEDS ORDERED: GLUCOSE 40% GEL 15 GM TUBE PO PRN (21:45)
[2021-08-06] MEDS ORDERED: CARBOHYDRATES FOR HYPOGLYCEMIA PO PRN (21:45)
[2021-08-06] MEDS: NYSTATIN CR 15 GM TUBE EXT SCH (22:04)
[2021-08-06] MEDS: METOPROLOL TARTRATE 25 MG TAB PO SCH (22:06)
[2021-08-06] MEDS: SIMVASTATIN 20 MG TAB PO SCH (22:06)
[2021-08-06] MEDS: DOXYCYCLINE HYCLATE 100 MG CAP PO SCH (22:08)
[2021-08-06] MEDS: CALCIUM 600MG + VIT D 400 IU TAB PO SCH (22:08)
[2021-08-06] MEDS: INSULIN GLARGINE SOLOSTAR 100 UNITS/ML 3 ML PEN SQ SCH (22:19)
[2021-08-06] MEDS: CEFDINIR 300 MG CAP PO SCH (23:01)
[2021-08-07] MEDS: MAGNESIUM SULFATE / D5W 1 GM/100 ML BAG IV SCH ×4 (00:03→19:57)
[2021-08-07 00:11] LABS: Appearance Urine Cloudy (Clear); Bacteria Urine Automated 1+ (Negative); Bilirubin Urine Negative (Negative); Blood Urine Negative (Negative); Color Urine Yellow; Epithelial Cell Urine Auto >30 /lpf (0-5); Glucose Urine UA Negative (Negative); Ketones Urine Negative (Negative); Leukocyte Esterase Urine 1+ (Negative); Nitrite Urine Negative (Negative); Protein Urine Negative (Negative); Specific Gravity Urine 1.023 (1.000-1.030); Urobilinogen Urine Negative (Negative)
[2021-08-07 00:24] LABS: RBC Urine Automated 0-4 /hpf (0-4)
[2021-08-07] MEDS ORDERED: MAGNESIUM SULFATE / D5W 1 GM/100 ML BAG IV ONE (01:57)
[2021-08-07] MEDS ORDERED: STAT IV STA ×2 (01:58→17:28)
[2021-08-07] MEDS ORDERED: CALCIUM GLUCONATE 10% 1,000 MG in DEXTROSE 5% 50 ML IV ONE (01:58)
[2021-08-07] MEDS: DOXYCYCLINE HYCLATE 100 MG CAP PO SCH ×2 (04:55→19:57)
[2021-08-07 07:27] LABS: Hemoglobin 9.3 g/dL (12.0-16.0); Mean Corpuscular Hemoglobin 25.9 pg (25-34); Mean Corpuscular Volume 86.4 fL (80-100); Mean Platelet Volume 11.6 fL (7.4-10.4); Platelet Count 232 K/uL (130-400); RDW Coefficient of Variation 17.7 % (11.5-14.5); RDW Standard Deviation 56.1 fL (36.4-46.3); Red Blood Count 3.59 M/uL (4.2-5.4); White Blood Count 7.07 K/uL (4.8-10.8)
[2021-08-07] MEDS: Ipratropium HFA Inhaler (Combivent Respimat P&T Subs) INH SCH ×4 (07:35→19:28)
[2021-08-07 07:36] LABS: INR 3.1 (0.9-1.1); Prothrombin Time 30.7 Seconds (9.0-12.0)
[2021-08-07] MEDS: Albuterol HFA 8 GM Inhaler (Combivent Respimat P&T Subs) INH SCH ×4 (07:36→19:27)
[2021-08-07 08:03] LABS: Albumin Level 3.3 gm/dl (3.4-5.0); Bilirubin,Total 0.7 mg/dl (0.2-1.0); Calcium 6.5 mg/dl (8.5-10.1); Creatinine Clr Calc Pharmacy 42.4 ml/min; Est GFR (African American) 49.8 ml/min; Globulin 3.3 gm/dl (2.5-4.0); Magnesium 1.8 mg/dl (1.7-2.4); Potassium 3.7 mmol/L (3.5-5.1); Total Protein 6.6 gm/dl (6.0-8.3)
[2021-08-07] MEDS: SPIRONOLACTONE 25 MG TAB PO SCH (08:13)
[2021-08-07] MEDS: FLUTICASONE/VILANTEROL 200/25MCG 14 PUFFS/INHALER INH SCH (08:13)
[2021-08-07] MEDS: CALCIUM 600MG + VIT D 400 IU TAB PO SCH ×2 (08:14→20:00)
[2021-08-07] MEDS: METOPROLOL TARTRATE 25 MG TAB PO SCH ×2 (08:14→20:00)
[2021-08-07] MEDS: lisinopril 5 MG TAB PO SCH (08:14)
[2021-08-07] MEDS: NYSTATIN CR 15 GM TUBE EXT SCH ×2 (08:14→20:00)
[2021-08-07] MEDS: CEFDINIR 300 MG CAP PO SCH ×2 (08:14→19:59)
[2021-08-07] MEDS ORDERED: CHOLECALCIFEROL 1,000 UNITS 25 MCG TAB PO SCH (09:00)
[2021-08-07] MEDS ORDERED: MAGNESIUM OXIDE 400 MG TAB PO SCH (09:00)
--- NOTE | 2021-08-07 09:09 | Nephrology Consultation ---
Date of Consultation August 07, 2021 Assessment & Plan (1) Hypomagnesemia: cause unclear at this time and possibly multifactorial > chronic /recurrent diarrhea w/ chronic GI losses x wks to months, chronic PPI use, potentially also d/t ongoing tubular dysfunction after serial SON this year. 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 (2) Hypocalcemia: -driven by longstanding hypomagnesemia primarily though D stores also low; PTH appropriately elevated >correct mag as above -increased D dosing to 5000 units daily (3) CKD (chronic kidney disease) stage 3, GFR 30-59 ml/min: at OP baseline; some risk for SON given recent IV contrast study -daily bmp -avoid nephrotoxins (4) Diarrhea: -monitor/ count BM; does not sound especially active past few days but has been recurrent History of Present Illness Reason for Consultation: electrolyte disorder Requesting Physician: Dr Méndez Attending Physician: Froylan Parikh MD History of Present Illness 80 y/o F whom I'm asked to see for electrolyte disorders including hypocalcemia, hypomagnesemia was sent from rehab facility yesterday d/t critical outpatient hypocalcemia, hypomagnesemia: On presentation her magnesium was less than 0.5 with calcium 5.7, albumin 3.4. 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 Admitted recently to [facility] July 17 through July 31 for bilateral lower extremity cellulitis and leg ulcers. Noted at that ad mission on presentation to have recurrent watery diarrhea attributed to viral gastroenteritis with otherwise negative work-up. diarrhea resolved by d/c per report. She was treated with daptomycin initially and transition to cefazolin due to elevated CPK. Also admitted here May 2021 for sepsis attributed to her leg ulcers, SON, diarrhea and hypomagnesemia. Her calcium values as an outpatient have been on a steady downward trend since December 2019 and first became abnormal prior to recent [facility] admission in June 2021. Calcium levels became critical in mid July. Magnesium on July 01 as an outpatient was 0.8. Maurice in similar range on follow-up labs this month. on presentation pt endorsed several days of progressive upper extremity numbness, cramping and tingling with similar sensations in posterior neck and in mid back.These are ongoing. she also complains of R foot cramps and leg hyperesthesias BL. Has developed L flank pain since arrival yesterday. one BM since arrival to hospital, 1-2 in past 36 hrs at [facility] before arrival She was started on IV magnesium and calcium: Magnesium today 1.8 and calcium 6.5. Allergies Allergy/AdvReac Type Severity Reaction Status Date / Time metformin Allergy Severe EDEMA FACE Verified 08/05/21 14:14 AND HANDS, ITCHY ciprofloxacin Allergy Intermediate RASH Verified 08/05/21 14:14 clindamycin Allergy Intermediate RASH Verified 08/05/21 14:14 pollen extracts Allergy Mild RUNNY NOSE Verified 08/05/21 14:14 Cephalosporins Allergy Unknown Unknown Verified 08/05/21 14:14 montelukast [From Singulair] Allergy Unknown CAN'T Verified 08/05/21 14:14 REMEMBER Penicillins Allergy Unknown CAN'T Verified 08/05/21 14:14 REMEMBER Sulfa (Sulfonamide Allergy Unknown CAN'T Verified 08/05/21 14:14 Antibiotics) REMEMBER Home Medications Medication Instructions Recorded Confirmed Type omeprazole 20 mg capsule,delayed 20 mg PO HS 05/08/18 08/06/21 History release simvastatin 20 mg tablet 20 mg PO HS 05/08/18 08/06/21 History ferrous sulfate 325 mg (65 mg 325 mg PO .DAILY IN AFTERNOON 07/30/18 08/06/21 History iron) tablet (iron) insulin glargine 100 unit/mL (3 15 units SUBCUT HS ml 10/03/18 08/06/21 History mL) subcutaneous pen (Lantus Solostar U-100 Insulin) ipratropium 20 mcg-albuterol 100 1 puffs INH QID 10/03/18 08/06/21 History mcg/actuation mist for inhalation (Combivent Respimat) fluticasone 250 mcg-salmeterol 50 1 inh INHALATION BID 03/28/19 08/06/21 History mcg/dose blistr powdr for inhalation (Wixela Inhub) acetaminophen 325 mg tablet 650 mg PO Q4 PRN 06/02/21 08/06/21 History (Tylenol) magnesium oxide 400 mg PO QAM 06/02/21 08/06/21 History doxycycline hyclate 100 mg tablet 100 mg PO BID 10 Days #20 tab 08/05/21 08/06/21 Rx lisinopril 5 mg tablet 5 mg PO QAM 08/05/21 08/06/21 History warfarin 2 mg tablet 1 mg PO DAILY 08/05/21 08/06/21 History acetaminophen 325 mg tablet 650 mg PO QID PRN MDD 3g 08/06/21 08/06/21 History calcium carbonate 500 mg-vitamin 1 tab PO BID 08/06/21 08/06/21 History D3 10 mcg (400 unit) tablet (Calcium 500 + D) cholecalciferol (vitamin D3) 25 50 mcg PO DAILY 08/06/21 08/06/21 History mcg (1,000 unit) tablet (Vitamin D3) docusate sodium 100 mg capsule 100 mg PO .Q 24HR PRN 08/06/21 08/06/21 History (Colace) furosemide 20 mg tablet 60 mg PO UD 08/06/21 08/06/21 History insulin aspart U-100 100 unit/mL 0 unit SUBCUT AC 08/06/21 08/06/21 History (3 mL) subcutaneous pen (Novolog Flexpen U-100 Insulin aspart) metoprolol tartrate 25 mg tablet 50 mg PO AMHS 08/06/21 08/06/21 History nystatin 100,000 unit/gram topical 1 applic TOPICAL AMHS 08/06/21 08/06/21 History cream spironolactone 50 mg tablet 50 mg PO QAM 08/06/21 08/06/21 History warfarin 1 mg tablet 1 mg PO HS 08/06/21 08/06/21 History Patient History Medical History A-fib Cellulitis CKD (chronic kidney disease) stage 3, GFR 30-59 ml/min COPD (chronic obstructive pulmonary disease) Diastolic CHF DM type 2 (diabetes mellitus, type 2) Dyslipidemia Hypomagnesemia Hypoxemic respiratory failure, chronic Nocturnal hypoxemia Obesity hypoventilation syndrome Osteoarthritis Pacemaker infection s/p removal Sepsis Staphylococcus aureus bacteremia Tachycardia-bradycardia syndrome Type 2 diabetes mellitus Surgical History History of cataract surgery History of hysterectomy History of total left knee replacement S/P adenoidectomy Family History Mother Diabetes Heart disease Social History Smoking Status: Former smoker Tobacco Type: Cigarettes Second Hand Exposure: Yes; Hx Alcohol Use: No Hx Substance Use: No Preferred Language: Romanian Communication Ability: Effective Visual Impairment: No Limitations Hearing Ability: Normal [employer] Required: No Beliefs That Will Affect Care: None marital status: Single Current Living Situation: Alone Current Living Situation Comment: Lives alone, son + granddaughter live nearby current occupational status: retired How many Children do You have: 1 Other Information That Helps Us Care for You: No Feels Safe at Home: Yes Safety Concerns: Feels Safe At This Time Assistive Devices: Denture - Upper, Glasses and Oxygen - Continuous Review of Systems Review of Systems: All systems reviewed & are unremarkable except as noted in Subjective Physical Exam Constitutional: well developed, well nourished, + obese, + frail appearing and cooperative; no acute distress Eyes: EOM intact bilaterally ENMT: Ears: no external ear abnormality Nose: no external nose abnormality Mouth: + dry oral mucous membranes Neck: no nuchal rigidity Respiratory: normal respiratory effort Auscultation: + diminished lung sounds and + crackles (scattered) Cardiovascular: Rate/Rhythm: regular rate and regular rhythm Heart Sounds: no murmur Extremities: + edema (trace) Gastrointestinal (Abdomen): Inspection/Auscultation: normal bowel sounds Percussion/Palpation: abdomen soft; abdomen nontender Musculoskeletal: Extremities: strength 5/5 throughout Skin: no rashes, warm and dry Neurologic: rodriguez, fluent speech, no tremor; restless legs BL Psychiatric: Orientation: oriented x 3 Speech: normal rate/rhythm/volume of speech Genitourinary: cleary+ Results & Data ([facility]) Vital Signs (Past 12 Hours) Vital Signs Temp Pulse Resp BP Pulse Ox 08/07/21 07:38 83 22 100 08/07/21 07:37 83 22 100 08/07/21 06:48 36.8 C 81 18 141/83 H 99 08/07/21 03:13 36.5 C 81 24 132/85 98 Laboratory Results 08/07/21 06:58 08/07/21 06:58 25 hydroxy vitamin D 15, PTH 418 Admission urinalysis: urine specific gravity 1023 1+ leukocyte Estrace 5-10 white cells rater than 30 epithelial cells and 1+ bacteria Urine and blood cultures pending from admission and no growth to date Diagnostic Findings August 05 chest x-ray FINDINGS: No pneumothorax. The cardiac silhouette is mildly enlarged. A few bibasilar linear densities consistent with subsegmental atelectasis. Otherwise, no focal lung consolidations to suggest pneumonia. No evidence for pulmonary edema. Calcifications again noted within the aortic knob. IMPRESSION: No significant change compared to the prior study. No acute process CT abdomen pelvis with IV contrast FINDINGS: Degenerative changes again noted within the lumbar spine with an old mild inferior endplate compression deformity at L1. A few bibasilar linear densities consistent with subsegmental atelectasis. No pneumoperitoneum. No pneumatosis. The heart remains mildly enlarged. Slightly heterogeneous perfusion of the liver without focal mass. The gallbladder, spleen, right adrenal gland and pancreas are unremarkable. Mild left adrenal gland hypertrophy, unchanged. The main portal vein is patent. Normal caliber abdominal aorta. A few prominent left perinephric varicosities, unchanged. No retroperitoneal lymphadenopathy. A 7 mm hypodense lesion within the upper pole of the right kidney. There is a similar-appearing 7 mm hypodense lesion within the upper pole of the left kidney. These are technically too small to characterize but statistically represent cysts. The bladder is unremarkable. Prior hysterectomy. No bowel obstruction. Questionable thickening of the gastric wall which could be due to underdistention. Normal appendix. Stable small metallic densities at the cecal base. These could represent surgical clips. IMPRESSION: 1. Questionable gastric wall thickening which could be due to underdistention. This remains unchanged. 2. No evidence for bowel obstruction. 3. Normal appendix. 4. Subtle nodular contour to the liver suggestive of cirrhosis. 5. Stable small metallic densities at the cecal base. This could represent surgical clips. EGD/colonoscopy early 2021 [facility] Multiple stomach polyps and gastritis, oozing skin tag and nonbleeding AVM status post ablation ascending colon (1) Diarrhea Diarrhea type: unspecified type Qualified Code(s): R19.7 - Diarrhea, unspecified
[2021-08-07] MEDS: CHOLECALCIFEROL 5,000 UNITS 125 MCG TAB PO SCH (11:12)
[2021-08-07] MEDS: MAGNESIUM CHLORIDE 64MG DELAYED REL TAB PO SCH ×2 (11:12→19:59)
[2021-08-07] MEDS: FAMOTIDINE 20 MG TAB PO SCH (11:12)
[2021-08-07] MEDS: ACETAMINOPHEN 325 MG TAB PO PRN (11:15)
--- NOTE | 2021-08-07 13:59 | Hospitalist Progress Note ---
Date of Service August 07, 2021 Assessment & Plan (1) Hypomagnesemia: (2) Hypocalcemia: Plan: main problems is hypomagnesemia likely secondarychronic /recurrent diarrhea w/ chronic GI losses x wks to months, chronic PPI use, potentially also d/t ongoing tubular dysfunction after serial SON this year. IV Ca and Mg in progress repeat Ca and Mg at 4pm Vit D 15: also given Vit D Supplement change Omeprazole to Famotidine appreciate Nephro Service (3) Chronic anemia: Plan: -Chronic, stable, hemoglobin is 9.4, continue iron supplementation (4) Cellulitis: Plan: - BLE cellulitis, warmth, erythema, edema continue on doxycycline po which was started on 08/05 in the ER yesterday continue cefdinir 300 mg po BID for possible UTI, Urine culture pending (5) Chronic atrial fibrillation: Plan: -Anticoagulated on Coumadin, INR 4.3 INR 3.1 hold coumadin INR daily (6) DM type 2 (diabetes mellitus, type 2): Plan: -ISS with Accu-Cheks ACHS -Continue Lantus 15 units at bedtime with diet -Last A1c = 6.3 on 07/11/2021 per outpatient epic results review (7) Diastolic CHF: Plan: - Chronic, stable -last echo completed on 07/20/2021 Reviewed showing mild concentric LVH, EF of 60 to 65%, left atrium moderately dilated, right ventricle severely dilated, right atrium severely dilated, aortic valve sclerosis moderate, trace MR, moderate to severe TR, elevated right ventricular systolic pressure of 50 to 60 mmHg suggestive of pulmonary hypertension. There is no endocarditis found on mitral valve leaflets. continue Lasix and Aldactone, discussed with Nephro (8) COPD (chronic obstructive pulmonary disease): Plan: -Chronic, stable continue inhalers DVT PPx: - teds, scds INR 3.1 CODE: Full code Dispo: lives at home PT/OT evaluation Admission and Anticipated Discharge Date Admission Date: August 06, 2021 Subjective ff up for hypomagnesemia, hypocalcemia, etc seen sitting up in chair not in distress reports neck feeling stiff also has bilateral arm tingling/spasms/numbness no weakness no chest pain, dyspnea, palpitations, dizziness no other symptoms Review of Systems Review of Systems: all noted and negative except for above Physical Exam Physical Exam: General- oriented x 3, not in distress, speaks in sentences with no effort or accessory muscle use Eyes- anicteric Neck- no JVD Lungs- clear BS bilaterally, no rales/wheezes Heart- normal rate, regular rhythm; no murmurs Abdomen- normal bowel sounds, nondistended, soft, nontender Extremities- trace pretibial edema, no calf tenderness Neuro- alert, oriented x 3; no gross focal neurologic deficits Skin- warm & dry Results & Data Results & Data ([facility]) Vital Signs (Past 12 Hours) Vital Signs Temp Pulse Resp BP Pulse Ox Pulse Ox Pulse Ox 08/07/21 13:12 94 3 L 08/07/21 11:38 36.2 C L 72 19 137/81 97 08/07/21 11:09 81 22 94 08/07/21 07:38 83 22 100 08/07/21 07:37 83 22 100 08/07/21 06:48 36.8 C 81 18 141/83 H 99 08/07/21 03:13 36.5 C 81 24 132/85 98 all noted and reviewed including below (1) Cellulitis Laterality: unspecified laterality Site of cellulitis: extremity Site of cellulitis of extremity: lower extremity Qualified Code(s): L03.119 - Cellulitis of unspecified part of limb (2) Diastolic CHF Heart failure chronicity: acute on chronic Qualified Code(s): I50.33 - Acute on chronic diastolic (congestive) heart failure (3) COPD (chronic obstructive pulmonary disease) COPD type: COPD with acute exacerbation Qualified Code(s): J44.1 - Chronic obstructive pulmonary disease with (acute) exacerbation
[2021-08-07] MEDS: FERROUS SULFATE 325 MG TAB PO SCH (14:24)
[2021-08-07] MEDS: FUROSEMIDE 20 MG TAB PO SCH (15:35)
[2021-08-07 16:09] LABS: BUN Creatinine Ratio 20.7 (10-20); Calcium 6.6 mg/dl (8.5-10.1); Creatinine Clr Calc Pharmacy 43.9 ml/min; Est GFR (African American) 51.9 ml/min; Est GFR (Non-African American) 44.7 ml/min; Magnesium 1.6 mg/dl (1.7-2.4); Potassium 4.1 mmol/L (3.5-5.1)
[2021-08-07] MEDS ORDERED: CALCIUM GLUCONATE 10% 2,000 MG in DEXTROSE 5% 50 ML IV ONE (18:00)
[2021-08-07] MEDS: SIMVASTATIN 20 MG TAB PO SCH (20:00)
[2021-08-07] MEDS: INSULIN GLARGINE SOLOSTAR 100 UNITS/ML 3 ML PEN SQ SCH (20:59)
[2021-08-08] MEDS: DOXYCYCLINE HYCLATE 100 MG CAP PO SCH ×2 (05:37→07:38)
[2021-08-08 06:13] LABS: Hematocrit (blood only) 32.3 % (37-47); Hemoglobin 9.7 g/dL (12.0-16.0); Mean Corpuscular Hemoglobin 26.1 pg (25-34); Mean Corpuscular Volume 87.1 fL (80-100); Mean Platelet Volume 10.6 fL (7.4-10.4); Platelet Count 211 K/uL (130-400); RDW Coefficient of Variation 17.5 % (11.5-14.5); RDW Standard Deviation 56.2 fL (36.4-46.3); Red Blood Count 3.71 M/uL (4.2-5.4); White Blood Count 5.04 K/uL (4.8-10.8)
--- NOTE | 2021-08-08 06:14 | Electrocardiogram Report ---
Test Reason : Blood Pressure : / mmHG Vent. Rate : 091 BPM Atrial Rate : 113 BPM P-R Int : 000 ms QRS Dur : 084 ms QT Int : 414 ms P-R-T Axes : 000 -31 -16 degrees QTc Int : 509 ms Atrial fibrillation with premature ventricular or aberrantly conducted complexes Left axis deviation Nonspecific T wave abnormality Prolonged QT Abnormal ECG When compared with ECG of 05-AUG-2021 12:26, Questionable change in initial forces of Anterior leads Confirmed by Cristhian Hagen ([id number]) on 08/08/2021 6:13:32 AM Referred By: REFERRED SELF Confirmed By:Cristhian Hagen
[2021-08-08 06:25] LABS: INR 2.8 (0.9-1.1); Prothrombin Time 28.2 Seconds (9.0-12.0)
[2021-08-08 06:38] LABS: Albumin Globulin Ratio 0.9 (0.9-2); Albumin Level 3.2 gm/dl (3.4-5.0); BUN Creatinine Ratio 20.8 (10-20); Bilirubin,Total 0.8 mg/dl (0.2-1.0); Calcium 7.5 mg/dl (8.5-10.1); Est GFR (African American) 57.8 ml/min; Est GFR (Non-African American) 49.9 ml/min; Globulin 3.4 gm/dl (2.5-4.0); Magnesium 1.9 mg/dl (1.7-2.4); Potassium 3.9 mmol/L (3.5-5.1); Total Protein 6.6 gm/dl (6.0-8.3)
[2021-08-08] MEDS: Ipratropium HFA Inhaler (Combivent Respimat P&T Subs) INH SCH ×4 (07:23→19:54)
[2021-08-08] MEDS: Albuterol HFA 8 GM Inhaler (Combivent Respimat P&T Subs) INH SCH ×4 (07:23→19:52)
[2021-08-08] MEDS: MAGNESIUM CHLORIDE 64MG DELAYED REL TAB PO SCH ×2 (07:37→20:48)
[2021-08-08] MEDS: CEFDINIR 300 MG CAP PO SCH (07:38)
[2021-08-08] MEDS: SPIRONOLACTONE 25 MG TAB PO SCH (07:39)
[2021-08-08] MEDS: FERROUS SULFATE 325 MG TAB PO SCH (07:39)
[2021-08-08] MEDS: METOPROLOL TARTRATE 25 MG TAB PO SCH ×2 (07:40→20:48)
[2021-08-08] MEDS: CHOLECALCIFEROL 5,000 UNITS 125 MCG TAB PO SCH (07:40)
[2021-08-08] MEDS: FAMOTIDINE 20 MG TAB PO SCH (07:40)
[2021-08-08] MEDS: lisinopril 5 MG TAB PO SCH (07:41)
[2021-08-08] MEDS: CALCIUM 600MG + VIT D 400 IU TAB PO SCH ×2 (07:41→20:49)
[2021-08-08] MEDS: FUROSEMIDE 20 MG TAB PO SCH (07:42)
[2021-08-08] MEDS: FLUTICASONE/VILANTEROL 200/25MCG 14 PUFFS/INHALER INH SCH (07:42)
[2021-08-08] MEDS: NYSTATIN CR 15 GM TUBE EXT SCH ×2 (07:43→20:50)
[2021-08-08] MEDS ORDERED: STAT IV ONE (09:13)
[2021-08-08] MEDS ORDERED: CALCIUM GLUCONATE 10% 2,000 MG in DEXTROSE 5% 50 ML IV ONE ×2 (09:13→19:30)
--- NOTE | 2021-08-08 09:14 | Nephrology Progress Note ---
Date of Service August 08, 2021 Assessment & Plan (1) Hypomagnesemia: Plan: cause unclear at this time and possibly multifactorial > chronic /recurrent diarrhea w/ chronic GI losses x wks to months, chronic PPI use, potentially also d/t ongoing tubular dysfunction after serial SON this year. improved w/ aggressive repletion; IV repletion will not be lasting however -check mag, bmp bid for now > repeat pending for this PM -agree w/ trial of changing PPI to H2 joann -changed mag to slo mag bid -- doxycycline dose needs to be in time and this has already been addressed per pharmacy -continue quality assurance monitor chassis until stable (2) Hypocalcemia: Plan: -driven by longstanding hypomagnesemia primarily though D stores also low; PTH appropriately elevated >correct mag as above -increased D dosing to 5000 units daily >will give another 2 gm calcium gluconate today >continue caltrate (3) CKD (chronic kidney disease) stage 3, GFR 30-59 ml/min: Plan: at OP baseline; some risk for SON given recent IV contrast study -daily bmp -avoid nephrotoxins (4) Diarrhea: Plan: -monitor/ count BM; does not sound especially active past few days but has been recurrent Admission and Anticipated Discharge Date Admission Date: August 06, 2021 Subjective seen on rounds this am > no sob worsening; no further arm paresthesias still some mild back pain but tingling better there too. no n/v Review of Systems Review of Systems: All systems reviewed & are unremarkable except as noted in Subjective Physical Exam Constitutional: well developed, well nourished, + obese, + frail appearing and cooperative; no acute distress Eyes: EOM intact bilaterally ENMT: Ears: no external ear abnormality Nose: no external nose abnormality Mouth: + dry oral mucous membranes Neck: no nuchal rigidity Respiratory: normal respiratory effort Auscultation: + diminished lung sounds and + crackles (scattered) Cardiovascular: Rate/Rhythm: regular rate and regular rhythm Heart Sounds: no murmur Extremities: + edema (trace) Gastrointestinal (Abdomen): Inspection/Auscultation: normal bowel sounds Percussion/Palpation: abdomen soft; abdomen nontender Musculoskeletal: Extremities: strength 5/5 throughout Skin: no rashes, warm and dry Psychiatric: Orientation: oriented x 3 Speech: normal rate/rhythm/volume of speech Results & Data ([facility]) Vital Signs (Past 12 Hours) Vital Signs Temp Pulse Pulse Pulse Resp BP Pulse Ox 08/08/21 08:19 36.6 C 79 19 139/77 98 08/08/21 08:00 84 08/08/21 07:24 84 18 98 08/08/21 03:30 36.8 C 79 20 145/77 H 95 08/07/21 23:07 36.5 C 60 22 153/76 H 98 Laboratory Results 08/08/21 05:48 08/08/21 05:48 iCa 0.96 mag 1.9 (1) Diarrhea Diarrhea type: unspecified type Qualified Code(s): R19.7 - Diarrhea, unspecified
--- NOTE | 2021-08-08 15:29 | Electrocardiogram Report ---
Test Reason : Blood Pressure : / mmHG Vent. Rate : 083 BPM Atrial Rate : 178 BPM P-R Int : 000 ms QRS Dur : 098 ms QT Int : 422 ms P-R-T Axes : 000 -22 -73 degrees QTc Int : 495 ms Poor data quality, interpretation may be adversely affected Atrial fibrillation Prolonged QT Abnormal ECG When compared with ECG of 06-AUG-2021 15:17, No significant change Confirmed by Cristhian Hagen ([id number]) on 08/08/2021 3:29:36 PM Referred By: REFERRED SELF Confirmed By:Cristhian Hagen
--- NOTE | 2021-08-08 17:34 | Hospitalist Progress Note ---
Date of Service August 08, 2021 Assessment & Plan (1) Hypomagnesemia: (2) Hypocalcemia: Plan: main problem is hypomagnesemia likely secondarychronic /recurrent diarrhea w/ chronic GI losses x wks to months, chronic PPI use, potentially also d/t ongoing tubular dysfunction after serial SON this year. Mg normalized Ca improving IV Ca and Mg in progress repeat Ca and Mg at 4pm Vit D 15: also given Vit D Supplement changed Omeprazole to Famotidine repeat Ca and Mg this afternoon appreciate Nephro Service (3) Chronic anemia: Plan: -Chronic, stable, hemoglobin is 9.4, continue iron supplementation (4) Cellulitis: Plan: - BLE cellulitis, warmth, erythema, edema improving continue on doxycycline po which was started on 08/05 in the ER yesterday urine culture negative, d/c Cefdinir (5) Chronic atrial fibrillation: Plan: -Anticoagulated on Coumadin, INR 4.3 INR 2.8 resume coumadin 1mg today INR daily (6) DM type 2 (diabetes mellitus, type 2): Plan: -ISS with Accu-Cheks ACHS -Continue Lantus 15 units at bedtime with diet -Last A1c = 6.3 on 07/11/2021 per outpatient epic results review (7) Diastolic CHF: Plan: - Chronic, stable -last echo completed on 07/20/2021 Reviewed showing mild concentric LVH, EF of 60 to 65%, left atrium moderately dilated, right ventricle severely dilated, right atrium severely dilated, aortic valve sclerosis moderate, trace MR, moderate to severe TR, elevated right ventricular systolic pressure of 50 to 60 mmHg suggestive of pulmonary hypertension. There is no endocarditis found on mitral valve leaflets. continue Lasix and Aldactone, discussed with Nephro (8) COPD (chronic obstructive pulmonary disease): Plan: -Chronic, stable continue inhalers DVT PPx: - teds, scds coumadin CODE: Full code Dispo: lives at home PT/OT evaluation Admission and Anticipated Discharge Date Admission Date: August 06, 2021 Subjective Follow-up for hypocalcemia, hypomagnesemia, etc. Seen resting in bed, comfortable, not in distress States she feels improved today Neck pain has resolved Tingling and weakness of extremities also improving significantly No nausea vomiting, abdominal pain Denies chest pain, palpitations, dizziness No other symptom Review of Systems Review of Systems: all noted and negative except for above Physical Exam Physical Exam: General- oriented x 3, not in distress, speaks in sentences with no effort or accessory muscle use Eyes- anicteric Neck- no JVD Lungs- clear BS bilaterally, no rales/wheezes Heart- normal rate, regular rhythm; no murmurs Abdomen- normal bowel sounds, nondistended, soft, nontender Extremities- no pretibial edema, no calf tenderness erythema improving Neuro- alert, oriented x 3; no gross focal neurologic deficits Skin- warm & dry Results & Data Results & Data ([facility]) Vital Signs (Past 12 Hours) Vital Signs Temp Pulse Pulse Resp BP Pulse Ox 08/08/21 15:26 36.5 C 84 19 111/47 L 96 08/08/21 15:13 80 18 98 08/08/21 11:57 36.7 C 87 19 121/81 96 08/08/21 10:56 70 18 98 08/08/21 08:19 36.6 C 79 19 139/77 98 08/08/21 08:00 84 08/08/21 07:24 84 18 98 all noted and reviewed including below (1) Cellulitis Laterality: unspecified laterality Site of cellulitis: extremity Site of cellulitis of extremity: lower extremity Qualified Code(s): L03.119 - Cellulitis of unspecified part of limb (2) Diastolic CHF Heart failure chronicity: acute on chronic Qualified Code(s): I50.33 - Acute on chronic diastolic (congestive) heart failure (3) COPD (chronic obstructive pulmonary disease) COPD type: COPD with acute exacerbation Qualified Code(s): J44.1 - Chronic obstructive pulmonary disease with (acute) exacerbation
[2021-08-08] MEDS ORDERED: WARFARIN SOD 0.5 MG TAB PO ONE (18:00)
[2021-08-08] MEDS: ACETAMINOPHEN 325 MG TAB PO PRN (18:11)
[2021-08-08 18:51] LABS: Anion Gap 9 (3-11); BUN Creatinine Ratio 21.4 (10-20); Blood Urea Nitrogen 25 mg/dl (6-23); Calcium 8.2 mg/dl (8.5-10.1); Carbon Dioxide 28 mmol/L (21-32); Chloride 100 mmol/L (98-107); Creatinine Clr Calc Pharmacy 43.5 ml/min; Est GFR (African American) 51.3 ml/min; Est GFR (Non-African American) 44.3 ml/min; Glucose 139 mg/dl (70-99(Fasting)); Magnesium 1.5 mg/dl (1.7-2.4); Sodium 137 mmol/L (136-145)
[2021-08-08] MEDS ORDERED: STAT IV STA (19:10)
[2021-08-08] MEDS: INSULIN GLARGINE SOLOSTAR 100 UNITS/ML 3 ML PEN SQ SCH (20:46)
[2021-08-08] MEDS: SIMVASTATIN 20 MG TAB PO SCH (20:47)
[2021-08-08] MEDS: MAGNESIUM SULFATE / D5W 1 GM/100 ML BAG IV SCH ×2 (21:58→23:53)
[2021-08-09] MEDS: MAGNESIUM SULFATE / D5W 1 GM/100 ML BAG IV SCH (01:47)
[2021-08-09] MEDS: DOXYCYCLINE HYCLATE 100 MG CAP PO SCH ×2 (05:49→18:01)
[2021-08-09 05:54] LABS: Hematocrit (blood only) 33.7 % (37-47); Hemoglobin 10.1 g/dL (12.0-16.0); Mean Corpuscular Hemoglobin 25.9 pg (25-34); Mean Corpuscular Volume 86.4 fL (80-100); Platelet Count 236 K/uL (130-400); RDW Coefficient of Variation 17.2 % (11.5-14.5); RDW Standard Deviation 54.6 fL (36.4-46.3); White Blood Count 6.28 K/uL (4.8-10.8)
[2021-08-09 06:06] LABS: INR 1.9 (0.9-1.1); Prothrombin Time 19.2 Seconds (9.0-12.0)
[2021-08-09 06:27] LABS: Albumin Globulin Ratio 0.9 (0.9-2); Albumin Level 3.2 gm/dl (3.4-5.0); BUN Creatinine Ratio 22.6 (10-20); Bilirubin,Total 0.9 mg/dl (0.2-1.0); Calcium 9.1 mg/dl (8.5-10.1); Creatinine Clr Calc Pharmacy 43.8 ml/min; Est GFR (African American) 52.4 ml/min; Est GFR (Non-African American) 45.2 ml/min; Globulin 3.6 gm/dl (2.5-4.0); Magnesium 2.4 mg/dl (1.7-2.4); Potassium 4.3 mmol/L (3.5-5.1); Total Protein 6.8 gm/dl (6.0-8.3)
[2021-08-09] MEDS: Albuterol HFA 8 GM Inhaler (Combivent Respimat P&T Subs) INH SCH ×4 (07:38→19:08)
[2021-08-09] MEDS: Ipratropium HFA Inhaler (Combivent Respimat P&T Subs) INH SCH ×4 (07:38→19:08)
[2021-08-09] MEDS: CALCIUM 600MG + VIT D 400 IU TAB PO SCH ×2 (08:03→20:02)
[2021-08-09] MEDS: CHOLECALCIFEROL 5,000 UNITS 125 MCG TAB PO SCH (08:04)
[2021-08-09] MEDS: FAMOTIDINE 20 MG TAB PO SCH (08:04)
[2021-08-09] MEDS: FLUTICASONE/VILANTEROL 200/25MCG 14 PUFFS/INHALER INH SCH (08:04)
[2021-08-09] MEDS: lisinopril 5 MG TAB PO SCH (08:05)
[2021-08-09] MEDS: FUROSEMIDE 20 MG TAB PO SCH (08:05)
[2021-08-09] MEDS: MAGNESIUM CHLORIDE 64MG DELAYED REL TAB PO SCH ×2 (08:06→20:01)
[2021-08-09] MEDS: SPIRONOLACTONE 25 MG TAB PO SCH (08:07)
[2021-08-09] MEDS: NYSTATIN CR 15 GM TUBE EXT SCH ×2 (08:07→20:02)
[2021-08-09] MEDS: METOPROLOL TARTRATE 25 MG TAB PO SCH ×2 (08:07→20:01)
[2021-08-09] MEDS ORDERED: CALCIUM GLUCONATE 10% 2,000 MG in DEXTROSE 5% 50 ML IV ONE (10:15)
[2021-08-09] MEDS ORDERED: STAT IV STA (10:15)
--- NOTE | 2021-08-09 10:29 | Nephrology Progress Note ---
Date of Service August 09, 2021 Assessment & Plan Admission and Anticipated Discharge Date Admission Date: August 06, 2021 Subjective Assessment & Plan (1) Hypomagnesemia: Plan: cause unclear at this time and possibly multifactorial. Combination of Chronic /recurrent diarrhea w/ chronic GI losses x wks to months, chronic PPI use, potentially also d/t ongoing tubular dysfunction after serial SON this year. improved w/ aggressive repletion to well within normal. --No Iv mag needed today. Continue slow mag 64 bid. even that may not be needed--will decide after labs tomorrow. -check mag, bmp Daily now. -agree w/ trial of changing PPI to H2 joann -changed mag to slo mag bid -- doxycycline dose needs to be in time and this has already been addressed per pharmacy -continue court monitor until stable (2) Hypocalcemia: Plan: -driven by longstanding hypomagnesemia primarily but also Low Vit D. PTH appropriately elevated >correct mag as above -increased D dosing to 5000 units daily >will give another 2 gm calcium gluconate today >continue caltrate (3) CKD (chronic kidney disease) stage 3, GFR 30-59 ml/min: Plan: at OP baseline; some risk for SON given recent IV contrast study -daily bmp -avoid nephrotoxins Subjective says no diarrhea now. No sob worsening. No arm paresthesias but still some mild back pain. no n/v Review of Systems Review of Systems: All systems reviewed & are unremarkable except as noted in Subjective Physical Exam Constitutional: well developed, well nourished, + obese, + frail appearing and cooperative; no acute distress Eyes: EOM intact bilaterally ENMT: Ears: no external ear abnormality Nose: no external nose abnormality Mouth: + dry oral mucous membranes Neck: no nuchal rigidity Respiratory: normal respiratory effort Auscultation: + diminished lung sounds and + crackles (scattered) Cardiovascular: Rate/Rhythm: regular rate and regular rhythm Heart Sounds: no murmur Extremities: + edema (trace) Gastrointestinal (Abdomen): Inspection/Auscultation: normal bowel sounds Percussion/Palpation: abdomen soft; abdomen nontender Musculoskeletal: Extremities: Chronic Skin changes Skin: no rashes, warm and dry Psychiatric: Orientation: oriented x 3 Speech: normal rate/rhythm/volume of speech Results & Data ([facility]) Vital Signs (Past 12 Hours) Vital Signs Temp Pulse Pulse Resp BP Pulse Ox 08/09/21 07:40 83 20 96 08/09/21 07:31 36.4 C L 87 16 137/74 96 08/09/21 04:24 36.5 C 79 18 121/74 98
[2021-08-09] MEDS: FERROUS SULFATE 325 MG TAB PO SCH (13:02)
--- NOTE | 2021-08-09 16:37 | Hospitalist Progress Note ---
Date of Service August 09, 2021 Assessment & Plan (1) Hypomagnesemia: Plan: (1) Hypomagnesemia: (2) Hypocalcemia: Plan: main problem is hypomagnesemia likely secondarychronic /recurrent diarrhea w/ chronic GI losses x wks to months, chronic PPI use, potentially also d/t ongoing tubular dysfunction after serial SON this year. Mg normalized Ca improving further IV Ca ordered today repeat Ca and Mg in AM Vit D 15: also given Vit D Supplement changed Omeprazole to Famotidine appreciate Nephro Service (3) Chronic anemia: Plan: -Chronic, stable, hemoglobin is 9.4, continue iron supplementation (4) Cellulitis: Plan: - BLE cellulitis, warmth, erythema, edema improving continue on doxycycline po which was started on 08/05 in the ER yesterday urine culture negative, d/c Cefdinir (5) Chronic atrial fibrillation: Plan: -Anticoagulated on Coumadin, INR 4.3 INR 1.9 resume coumadin 1mg today INR daily (6) DM type 2 (diabetes mellitus, type 2): Plan: -ISS with Accu-Cheks ACHS -Continue Lantus 15 units at bedtime with diet -Last A1c = 6.3 on 07/11/2021 per outpatient epic results review (7) Diastolic CHF: Plan: - Chronic, stable -last echo completed on 07/20/2021 Reviewed showing mild concentric LVH, EF of 60 to 65%, left atrium moderately dilated, right ventricle severely dilated, right atrium severely dilated, aortic valve sclerosis moderate, trace MR, moderate to severe TR, elevated right ventricular systolic pressure of 50 to 60 mmHg suggestive of pulmonary hypertension. There is no endocarditis found on mitral valve leaflets. continue Lasix and Aldactone, discussed with Nephro (8) COPD (chronic obstructive pulmonary disease): Plan: -Chronic, stable continue inhalers DVT PPx: - teds, scds coumadin CODE: Full code Dispo: lives at home PT/OT evaluation Admission and Anticipated Discharge Date Admission Date: August 06, 2021 Subjective ff up for hypocalcemia, hypo-mg, etc seen resting in bed, comfortable states she feels improved today neck pain, extremity paresthesias and numbness also resolved no chest pain, dyspnea, palpitations, dizziness no other symptoms Review of Systems Review of Systems: all noted and negative except for above Physical Exam Physical Exam: General- oriented x 3, not in distress, speaks in sentences with no effort or accessory muscle use Eyes- anicteric Neck- no JVD Lungs- clear BS BL, no rales/wheezes Heart- normal rate, regular rhythm; no murmurs Abdomen- normal bowel sounds, nondistended, soft, nontender Extremities- erythema resolving, no warmth/tenderness, no calf tenderness Neuro- alert, oriented x 3; no gross focal neurologic deficits Skin- warm & dry Results & Data Results & Data ([facility]) Vital Signs (Past 12 Hours) Vital Signs Temp Pulse Pulse Resp BP BP Pulse Ox 08/09/21 15:43 36.9 C 84 16 129/77 93 08/09/21 15:20 80 20 94 08/09/21 11:26 36.5 C 84 17 121/70 92 08/09/21 11:23 82 22 93 08/09/21 07:40 83 20 96 08/09/21 07:31 36.4 C L 87 16 137/74 96 all noted and reviewed including below
[2021-08-09] MEDS: WARFARIN SOD 1 MG TAB PO SCH (17:59)
[2021-08-09] MEDS: SIMVASTATIN 20 MG TAB PO SCH (20:01)
[2021-08-09] MEDS: INSULIN GLARGINE SOLOSTAR 100 UNITS/ML 3 ML PEN SQ SCH (20:03)
[2021-08-10] MEDS: DOXYCYCLINE HYCLATE 100 MG CAP PO SCH ×2 (05:30→17:17)
[2021-08-10 05:56] LABS: INR 1.5 (0.9-1.1); Prothrombin Time 15.5 Seconds (9.0-12.0)
[2021-08-10 06:08] LABS: BUN Creatinine Ratio 28.2 (10-20); Calcium 9.3 mg/dl (8.5-10.1); Est GFR (African American) 51.3 ml/min; Est GFR (Non-African American) 44.3 ml/min; Magnesium 1.6 mg/dl (1.7-2.4); Potassium 4.4 mmol/L (3.5-5.1)
[2021-08-10] MEDS: Ipratropium HFA Inhaler (Combivent Respimat P&T Subs) INH SCH ×4 (07:31→19:39)
[2021-08-10] MEDS: Albuterol HFA 8 GM Inhaler (Combivent Respimat P&T Subs) INH SCH ×4 (07:31→19:39)
[2021-08-10] MEDS: CHOLECALCIFEROL 5,000 UNITS 125 MCG TAB PO SCH (07:58)
[2021-08-10] MEDS: FAMOTIDINE 20 MG TAB PO SCH (07:58)
[2021-08-10] MEDS: CALCIUM 600MG + VIT D 400 IU TAB PO SCH (07:58)
[2021-08-10] MEDS: FLUTICASONE/VILANTEROL 200/25MCG 14 PUFFS/INHALER INH SCH (07:58)
[2021-08-10] MEDS: FUROSEMIDE 20 MG TAB PO SCH (07:59)
[2021-08-10] MEDS: lisinopril 5 MG TAB PO SCH (07:59)
[2021-08-10] MEDS: NYSTATIN CR 15 GM TUBE EXT SCH ×2 (08:00→20:25)
[2021-08-10] MEDS: MAGNESIUM CHLORIDE 64MG DELAYED REL TAB PO SCH ×2 (08:00→20:23)
[2021-08-10] MEDS: METOPROLOL TARTRATE 25 MG TAB PO SCH ×2 (08:00→20:24)
[2021-08-10] MEDS: SPIRONOLACTONE 25 MG TAB PO SCH (08:01)
--- NOTE | 2021-08-10 12:37 | Nephrology Progress Note ---
Date of Service August 10, 2021 Assessment & Plan Admission and Anticipated Discharge Date Admission Date: August 06, 2021 Subjective Subjective Assessment & Plan (1) Hypomagnesemia: Plan: cause unclear at this time and possibly multifactorial. Combination of Chronic /recurrent diarrhea w/ chronic GI losses x wks to months, chronic PPI use, potentially also d/t ongoing tubular dysfunction after serial SON this year. improved w/ aggressive repletion to well within normal. --Continue slow mag 64 bid. mag lowish today again after Normal yesterday -check mag, bmp Daily now. -agree w/ trial of changing PPI to H2 joann -changed mag to slo mag bid -- doxycycline dose needs to be in time and this has already been addressed per pharmacy -continue manager packaging until stable (2) Hypocalcemia: Plan: -driven by longstanding hypomagnesemia primarily but also Low Vit D. PTH appropriately elevated correct mag as above -Vit D dosing to 5000 units daily Lower Caltrate to daily. (3) CKD (chronic kidney disease) stage 3, GFR 30-59 ml/min: Plan: at OP baseline; some risk for SON given recent IV contrast study -daily bmp -avoid nephrotoxins Subjective says no diarrhea now. No sob worsening. No arm paresthesias but still some mild back pain. no n/v Review of Systems Review of Systems: All systems reviewed & are unremarkable except as noted in Subjective Physical Exam Constitutional: well developed, well nourished, + obese, + frail appearing and cooperative; no acute distress Eyes: EOM intact bilaterally ENMT: Ears: no external ear abnormality Nose: no external nose abnormality Mouth: + dry oral mucous membranes Neck: no nuchal rigidity Respiratory: normal respiratory effort Auscultation: + diminished lung sounds and + crackles (scattered) Cardiovascular: Rate/Rhythm: regular rate and regular rhythm Heart Sounds: no murmur Extremities: + edema (trace) Gastrointestinal (Abdomen): Inspection/Auscultation: normal bowel sounds Percussion/Palpation: abdomen soft; abdomen nontender Musculoskeletal: Extremities: Chronic Skin changes Skin: no rashes, warm and dry Psychiatric: Orientation: oriented x 3 Speech: normal rate/rhythm/volume of speech Results & Data ([facility]) Vital Signs (Past 12 Hours) Vital Signs Temp Pulse Resp BP Pulse Ox 08/10/21 11:32 76 14 92/57 L 94 08/10/21 11:22 83 22 95 08/10/21 07:56 36.5 C 96 H 14 139/84 95 08/10/21 07:32 86 22 96 08/10/21 02:27 36.5 C 86 20 122/74 97
[2021-08-10] MEDS: FERROUS SULFATE 325 MG TAB PO SCH (14:04)
[2021-08-10] MEDS: WARFARIN SOD 1 MG TAB PO SCH (17:16)
--- NOTE | 2021-08-10 18:39 | Hospitalist Progress Note ---
Date of Service August 10, 2021 Assessment & Plan (1) Hypocalcemia: Plan: (1) Hypomagnesemia: Plan: (1) Hypomagnesemia: (2) Hypocalcemia: Plan: main problem is hypomagnesemia likely secondarychronic /recurrent diarrhea w/ chronic GI losses x wks to months, chronic PPI use, potentially also d/t ongoing tubular dysfunction after serial SON this year. Given IV and p.o. calcium and magnesium Calcium and magnesium low normal Now on p.o. magnesium n.p.o. Caltrate Vit D 15: also given Vit D Supplement changed Omeprazole to Famotidine appreciate Nephro Service (3) Chronic anemia: Plan: -Chronic, stable, hemoglobin is 9.4, continue iron supplementation (4) Cellulitis: Plan: - BLE cellulitis, warmth, erythema, edema improving continue on doxycycline po which was started on 08/05 in the ER yesterday urine culture negative, d/c Cefdinir (5) Chronic atrial fibrillation: Plan: -Anticoagulated on Coumadin, INR 4.3 INR 1.9 resume coumadin 1mg today INR daily (6) DM type 2 (diabetes mellitus, type 2): Plan: -ISS with Accu-Cheks ACHS -Continue Lantus 15 units at bedtime with diet -Last A1c = 6.3 on 07/11/2021 per outpatient epic results review (7) Diastolic CHF: Plan: - Chronic, stable -last echo completed on 07/20/2021 Reviewed showing mild concentric LVH, EF of 60 to 65%, left atrium moderately dilated, right ventricle severely dilated, right atrium severely dilated, aortic valve sclerosis moderate, trace MR, moderate to severe TR, elevated right ventricular systolic pressure of 50 to 60 mmHg suggestive of pulmonary hypertension. There is no endocarditis found on mitral valve leaflets. continue Lasix and Aldactone, discussed with Nephro (8) COPD (chronic obstructive pulmonary disease): Plan: -Chronic, stable continue inhalers DVT PPx: - teds, scds coumadin CODE: Full code Dispo: lives at home PT/OT evaluation Admission and Anticipated Discharge Date Admission Date: August 06, 2021 Subjective Follow-up for hypocalcemia and hypomagnesemia, etc. Seen resting in chair having lunch, comfortable, not in distress States she feels better overall No neck pain, muscle aches, or tingling No shortness of breath, chest pain No other symptoms Review of Systems Review of Systems: all noted and negative except for above Physical Exam Physical Exam: General- oriented x 3, not in distress, speaks in sentences with no effort or accessory muscle use Eyes- anicteric Neck- no JVD Lungs- clear breath sounds bilaterally Heart- normal rate, regular rhythm; no murmurs Abdomen- normal bowel sounds, nondistended, soft, nontender Extremities- no pretibial edema, no calf tenderness Erythema resolved Neuro- alert, oriented x 3; no gross focal neurologic deficits Skin- warm & dry Results & Data Results & Data ([facility]) Vital Signs (Past 12 Hours) Vital Signs Temp Pulse Pulse Resp BP BP Pulse Ox 08/10/21 15:34 36.6 C 82 16 120/68 94 08/10/21 15:13 82 20 94 08/10/21 11:32 76 14 92/57 L 94 08/10/21 11:22 83 22 95 08/10/21 07:56 36.5 C 96 H 14 139/84 95 08/10/21 07:32 86 22 96 all noted and reviewed including below
[2021-08-10] MEDS: SIMVASTATIN 20 MG TAB PO SCH (20:23)
[2021-08-10] MEDS: INSULIN GLARGINE SOLOSTAR 100 UNITS/ML 3 ML PEN SQ SCH (20:25)
[2021-08-11] MEDS: DOXYCYCLINE HYCLATE 100 MG CAP PO SCH ×2 (05:32→17:08)
[2021-08-11 05:55] LABS: INR 1.6 (0.9-1.1); Prothrombin Time 16.2 Seconds (9.0-12.0)
[2021-08-11 06:12] LABS: BUN Creatinine Ratio 33.3 (10-20); Calcium 9.1 mg/dl (8.5-10.1); Creatinine Clr Calc Pharmacy 43.7 ml/min; Est GFR (Non-African American) 45.7 ml/min; Magnesium 1.4 mg/dl (1.7-2.4); Potassium 4.7 mmol/L (3.5-5.1)
[2021-08-11] MEDS ORDERED: MAGNESIUM SULFATE / D5W 1 GM/100 ML BAG IV ONE ×2 (06:30→11:30)
[2021-08-11] MEDS: Albuterol HFA 8 GM Inhaler (Combivent Respimat P&T Subs) INH SCH ×4 (07:16→19:36)
[2021-08-11] MEDS: Ipratropium HFA Inhaler (Combivent Respimat P&T Subs) INH SCH ×4 (07:16→19:36)
[2021-08-11] MEDS: SPIRONOLACTONE 25 MG TAB PO SCH (08:48)
[2021-08-11] MEDS: CHOLECALCIFEROL 5,000 UNITS 125 MCG TAB PO SCH (08:49)
[2021-08-11] MEDS: CALCIUM 600MG + VIT D 400 IU TAB PO SCH (08:49)
[2021-08-11] MEDS: FAMOTIDINE 20 MG TAB PO SCH (08:49)
[2021-08-11] MEDS: FUROSEMIDE 20 MG TAB PO SCH (08:49)
[2021-08-11] MEDS: MAGNESIUM CHLORIDE 64MG DELAYED REL TAB PO SCH ×3 (08:49→20:28)
[2021-08-11] MEDS: FLUTICASONE/VILANTEROL 200/25MCG 14 PUFFS/INHALER INH SCH (08:49)
[2021-08-11] MEDS: lisinopril 5 MG TAB PO SCH (08:49)
[2021-08-11] MEDS: METOPROLOL TARTRATE 25 MG TAB PO SCH ×2 (08:50→20:28)
[2021-08-11] MEDS: NYSTATIN CR 15 GM TUBE EXT SCH ×2 (08:50→20:29)
--- NOTE | 2021-08-11 10:51 | Nephrology Progress Note ---
Date of Service August 11, 2021 Assessment & Plan Admission and Anticipated Discharge Date Admission Date: August 06, 2021 Subjective Assessment & Plan (1) Hypomagnesemia: Plan: cause unclear at this time and possibly multifactorial. Combination of Chronic /recurrent diarrhea w/ chronic GI losses x wks to months, chronic PPI use, potentially also d/t ongoing tubular dysfunction after serial SON this year. --mag dropping again. raise the Dose to 64 tid. also give her another 1 gm iv. -check mag, bmp Daily now. 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 PTH appropriately elevated correct mag as above -Vit D dosing to 5000 units daily Will use TUMS 500 bid (3) CKD (chronic kidney disease) stage 3, GFR 30-59 ml/min: Plan: At OP baseline; some risk for SON given recent IV contrast study -daily bmp -avoid nephrotoxins Subjective says no diarrhea now. No sob worsening. No arm paresthesias but still some mild back pain. no n/v Review of Systems Review of Systems: All systems reviewed & are unremarkable except as noted in Subjective Physical Exam Constitutional: well developed, well nourished, + obese, + frail appearing and cooperative; no acute distress Eyes: EOM intact bilaterally ENMT: Ears: no external ear abnormality Nose: no external nose abnormality Mouth: + dry oral mucous membranes Neck: no nuchal rigidity Respiratory: normal respiratory effort Auscultation: + diminished lung sounds and + crackles (scattered) Cardiovascular: Rate/Rhythm: regular rate and regular rhythm Heart Sounds: no murmur Extremities: + edema (trace) Gastrointestinal (Abdomen): Inspection/Auscultation: normal bowel sounds Percussion/Palpation: abdomen soft; abdomen nontender Musculoskeletal: Extremities: Chronic Skin changes Skin: no rashes, warm and dry Psychiatric: Orientation: oriented x 3 Speech: normal rate/rhythm/volume of speech Results & Data ([facility]) Vital Signs (Past 12 Hours) Vital Signs Temp Pulse Pulse Resp BP Pulse Ox 08/11/21 10:38 90 18 95 08/11/21 07:46 36.5 C 92 H 18 128/80 96 08/11/21 07:42 90 18 96 08/11/21 07:26 93 H 08/11/21 03:27 36.5 C 87 16 124/78 96 08/10/21 23:49 36.3 C L 86 18 105/70 95
[2021-08-11] MEDS: CALCIUM CARBONATE 500 MG CHEWABLE TAB PO SCH ×2 (11:21→20:27)
[2021-08-11] MEDS: FERROUS SULFATE 325 MG TAB PO SCH (13:11)
[2021-08-11] MEDS: WARFARIN SOD 1 MG TAB PO SCH (15:25)
[2021-08-11] MEDS ORDERED: WARFARIN SOD 0.5 MG TAB PO ONE (16:47)
--- NOTE | 2021-08-11 16:47 | Hospitalist Progress Note ---
Date of Service August 11, 2021 Assessment & Plan (1) Hypomagnesemia: (2) Hypocalcemia: Plan: (1) Hypomagnesemia: (2) Hypocalcemia: Plan: main problem is hypomagnesemia likely secondarychronic /recurrent diarrhea w/ chronic GI losses x wks to months, chronic PPI use, potentially also d/t ongoing tubular dysfunction after serial SON this year. Given IV and p.o. calcium and magnesium Calcium now normal Magnesium- low again IV Mg ordered continue p.o. magnesium n.p.o. Caltrate Vit D 15: also given Vit D Supplement changed Omeprazole to Famotidine appreciate Nephro Service (3) Chronic anemia: Plan: -Chronic, stable, hemoglobin is 9.4, continue iron supplementation (4) Cellulitis: Plan: - BLE cellulitis, warmth, erythema, edema improving continue on doxycycline po which was started on 08/05 in the ER yesterday urine culture negative, d/c Cefdinir (5) Chronic atrial fibrillation: Plan: -Anticoagulated on Coumadin, INR 4.3 INR 1.6 resume coumadin 1mg today INR daily (6) DM type 2 (diabetes mellitus, type 2): Plan: -ISS with Accu-Cheks ACHS -Continue Lantus 15 units at bedtime with diet -Last A1c = 6.3 on 07/11/2021 per outpatient epic results review (7) Diastolic CHF: Plan: - Chronic, stable -last echo completed on 07/20/2021 Reviewed showing mild concentric LVH, EF of 60 to 65%, left atrium moderately dilated, right ventricle severely dilated, right atrium severely dilated, aortic valve sclerosis moderate, trace MR, moderate to severe TR, elevated right ventricular systolic pressure of 50 to 60 mmHg suggestive of pulmonary hypertension. There is no endocarditis found on mitral valve leaflets. continue Lasix and Aldactone, discussed with Nephro (8) COPD (chronic obstructive pulmonary disease): Plan: -Chronic, stable continue inhalers DVT PPx: - teds, scds coumadin CODE: Full code Dispo: lives at home PT/OT evaluation Admission and Anticipated Discharge Date Admission Date: August 06, 2021 Subjective ff up for hypomg, hypocalcemia, etc seen resting in bed, comfortable states she feels fine overall no muscle pain, numbness, paresthesia no leg pain no other symptoms Review of Systems Review of Systems: all noted and negative except for above Physical Exam Physical Exam: General- oriented x 2, not in distress, speaks in sentences with no effort or accessory muscle use Eyes- anicteric Neck- no JVD Lungs- clear breath sounds bilaterally Heart- normal rate, regular rhythm; no murmurs Abdomen- normal bowel sounds, nondistended, soft, nontender Extremities- no pretibial edema, no calf tenderness no erythema Neuro- alert, oriented x 3; no gross focal neurologic deficits Skin- warm & dry Results & Data Results & Data ([facility]) Vital Signs (Past 12 Hours) Vital Signs Temp Pulse Pulse Resp BP Pulse Ox 08/11/21 15:29 36.3 C L 82 18 118/79 96 08/11/21 15:22 90 18 95 08/11/21 11:26 36.3 C L 81 20 124/78 97 08/11/21 10:38 90 18 95 08/11/21 07:46 36.5 C 92 H 18 128/80 96 08/11/21 07:42 90 18 96 08/11/21 07:26 93 H all noted and reviewed including below
[2021-08-11] MEDS: INSULIN GLARGINE SOLOSTAR 100 UNITS/ML 3 ML PEN SQ SCH (20:27)
[2021-08-11] MEDS: SIMVASTATIN 20 MG TAB PO SCH (20:28)
[2021-08-12] MEDS: Ipratropium HFA Inhaler (Combivent Respimat P&T Subs) INH SCH ×4 (07:04→19:37)
[2021-08-12] MEDS: Albuterol HFA 8 GM Inhaler (Combivent Respimat P&T Subs) INH SCH ×4 (07:04→19:38)
[2021-08-12 07:42] LABS: INR 1.7 (0.9-1.1); Prothrombin Time 17.2 Seconds (9.0-12.0)
[2021-08-12 08:01] LABS: BUN Creatinine Ratio 30.6 (10-20); Calcium 9.5 mg/dl (8.5-10.1); Creatinine Clr Calc Pharmacy 37.2 ml/min; Est GFR (African American) 43.6 ml/min; Est GFR (Non-African American) 37.6 ml/min; Magnesium 1.8 mg/dl (1.7-2.4); Potassium 4.7 mmol/L (3.5-5.1)
[2021-08-12] MEDS: FAMOTIDINE 20 MG TAB PO SCH (08:04)
[2021-08-12] MEDS: FLUTICASONE/VILANTEROL 200/25MCG 14 PUFFS/INHALER INH SCH (08:04)
[2021-08-12] MEDS: SPIRONOLACTONE 25 MG TAB PO SCH (08:04)
[2021-08-12] MEDS: METOPROLOL TARTRATE 25 MG TAB PO SCH ×2 (08:05→20:31)
[2021-08-12] MEDS: CALCIUM 600MG + VIT D 400 IU TAB PO SCH (08:05)
[2021-08-12] MEDS: MAGNESIUM CHLORIDE 64MG DELAYED REL TAB PO SCH ×3 (08:05→20:27)
[2021-08-12] MEDS: CALCIUM CARBONATE 500 MG CHEWABLE TAB PO SCH ×2 (08:06→20:26)
[2021-08-12] MEDS: lisinopril 5 MG TAB PO SCH (08:06)
[2021-08-12] MEDS: FUROSEMIDE 20 MG TAB PO SCH (08:06)
[2021-08-12] MEDS: NYSTATIN CR 15 GM TUBE EXT SCH ×2 (08:07→20:27)
[2021-08-12] MEDS: CHOLECALCIFEROL 5,000 UNITS 125 MCG TAB PO SCH (08:07)
[2021-08-12] MEDS: DOXYCYCLINE HYCLATE 100 MG CAP PO SCH ×2 (09:33→17:53)
[2021-08-12] MEDS: FERROUS SULFATE 325 MG TAB PO SCH (14:44)
[2021-08-12] MEDS: WARFARIN SOD 1 MG TAB PO SCH (15:54)
[2021-08-12] MEDS ORDERED: WARFARIN SOD 1 MG TAB PO STA (17:57)
--- NOTE | 2021-08-12 18:01 | Hospitalist Progress Note ---
Date of Service August 12, 2021 Assessment & Plan (1) Hypomagnesemia: (2) Hypocalcemia: Plan: (1) Hypomagnesemia: (2) Hypocalcemia: Plan: main problem is hypomagnesemia likely secondarychronic /recurrent diarrhea w/ chronic GI losses x wks to months, chronic PPI use, potentially also d/t ongoing tubular dysfunction after serial SON this year. Given IV and p.o. calcium and magnesium Calcium and magnesium now normalized Started on p.o. magnesium and p.o. Caltrate Vit D 15: also given Vit D Supplement changed Omeprazole to Famotidine appreciate Nephro Service (3) Chronic anemia: Plan: -Chronic, stable, hemoglobin is 9.4, continue iron supplementation (4) Cellulitis: Plan: - BLE cellulitis, warmth, erythema, edema improving continue on doxycycline po x7 out of 10 days urine culture negative, d/c Cefdinir (5) Chronic atrial fibrillation: Plan: -Anticoagulated on Coumadin, INR 4.3 INR 1.1 Coumadin 2 mg ordered today Usually on Coumadin 1 mg daily INR daily (6) DM type 2 (diabetes mellitus, type 2): Plan: -ISS with Accu-Cheks ACHS -Continue Lantus 15 units at bedtime with diet -Last A1c = 6.3 on 07/11/2021 per outpatient epic results review (7) Diastolic CHF: Plan: - Chronic, stable -last echo completed on 07/20/2021 Reviewed showing mild concentric LVH, EF of 60 to 65%, left atrium moderately dilated, right ventricle severely dilated, right atrium severely dilated, aortic valve sclerosis moderate, trace MR, moderate to severe TR, elevated right ventricular systolic pressure of 50 to 60 mmHg suggestive of pulmonary hypertension. There is no endocarditis found on mitral valve leaflets. continue Lasix and Aldactone, discussed with Nephro (8) COPD (chronic obstructive pulmonary disease): Plan: -Chronic, stable continue inhalers DVT PPx: - teds, scds coumadin CODE: Full code Dispo: lives at home PT/OT evaluation Awaiting acceptance to senior care facility Admission and Anticipated Discharge Date Admission Date: August 06, 2021 Subjective Follow-up for hypocalcemia, hypomagnesemia, etc. Seen resting in bed, comfortable, in good spirits States she feels much better overall No muscle weakness, paresthesias, numbness Reports diarrhea today, but no abdominal pain, nausea or vomiting No leg pain No other symptoms Review of Systems Review of Systems: all noted and negative except for above Physical Exam Physical Exam: General- oriented x 3, not in distress, speaks in sentences with no effort or accessory muscle use Eyes- anicteric Neck- no JVD Lungs- clear breath sounds bilaterally, no crackles, no wheezing bilaterally Heart- normal rate, regular rhythm; no murmurs Abdomen- normal bowel sounds, nondistended, soft, nontender Extremities- no pretibial edema, no erythema, no calf tenderness Neuro- alert, oriented x 3; no gross focal neurologic deficits Skin- warm & dry Results & Data Results & Data ([facility]) Vital Signs (Past 12 Hours) Vital Signs Temp Pulse Resp BP Pulse Ox 08/12/21 15:56 36.4 C L 86 19 113/65 97 08/12/21 15:51 74 16 96 08/12/21 11:52 36.4 C L 81 20 115/59 L 94 08/12/21 11:29 86 18 98 08/12/21 07:49 36.4 C L 78 19 123/76 97 08/12/21 07:05 85 18 96 all noted and reviewed including below
[2021-08-12] MEDS: SIMVASTATIN 20 MG TAB PO SCH (20:27)
[2021-08-12] MEDS: INSULIN GLARGINE SOLOSTAR 100 UNITS/ML 3 ML PEN SQ SCH (20:37)
[2021-08-13] MEDS: DOXYCYCLINE HYCLATE 100 MG CAP PO SCH ×2 (06:18→18:43)
[2021-08-13] MEDS: SPIRONOLACTONE 25 MG TAB PO SCH (07:25)
[2021-08-13] MEDS: CALCIUM CARBONATE 500 MG CHEWABLE TAB PO SCH ×3 (07:25→21:05)
[2021-08-13] MEDS: METOPROLOL TARTRATE 25 MG TAB PO SCH ×2 (07:25→21:04)
[2021-08-13] MEDS: NYSTATIN CR 15 GM TUBE EXT SCH ×2 (07:25→21:06)
[2021-08-13] MEDS: Ipratropium HFA Inhaler (Combivent Respimat P&T Subs) INH SCH ×4 (07:26→19:40)
[2021-08-13] MEDS: CHOLECALCIFEROL 5,000 UNITS 125 MCG TAB PO SCH (07:26)
[2021-08-13] MEDS: CALCIUM 600MG + VIT D 400 IU TAB PO SCH (07:26)
[2021-08-13] MEDS: FAMOTIDINE 20 MG TAB PO SCH (07:26)
[2021-08-13] MEDS: MAGNESIUM CHLORIDE 64MG DELAYED REL TAB PO SCH ×3 (07:26→21:05)
[2021-08-13] MEDS: FUROSEMIDE 20 MG TAB PO SCH (07:26)
[2021-08-13] MEDS: lisinopril 5 MG TAB PO SCH (07:26)
[2021-08-13] MEDS: Albuterol HFA 8 GM Inhaler (Combivent Respimat P&T Subs) INH SCH ×4 (07:27→19:41)
[2021-08-13] MEDS: FLUTICASONE/VILANTEROL 200/25MCG 14 PUFFS/INHALER INH SCH (07:27)
[2021-08-13 07:42] LABS: INR 1.9 (0.9-1.1); Prothrombin Time 19.3 Seconds (9.0-12.0)
[2021-08-13 08:20] LABS: BUN Creatinine Ratio 29.6 (10-20); Calcium 9.8 mg/dl (8.5-10.1); Creatinine Clr Calc Pharmacy 34.9 ml/min; Est GFR (African American) 40.6 ml/min; Magnesium 1.5 mg/dl (1.7-2.4); Potassium 4.7 mmol/L (3.5-5.1)
[2021-08-13] MEDS: MAGNESIUM SULFATE / D5W 1 GM/100 ML BAG IV SCH ×2 (10:02→12:31)
--- NOTE | 2021-08-13 10:43 | Nephrology Progress Note ---
Date of Service August 13, 2021 Assessment & Plan Admission and Anticipated Discharge Date Admission Date: August 06, 2021 Subjective Assessment & Plan (1) Hypomagnesemia: Plan: cause multifactorial. Combination of Chronic /recurrent diarrhea w/ chronic GI losses x wks to months, chronic PPI use, potentially also d/t ongoing tubular dysfunction after serial SON this year. --mag dropping. raise the Dose to 128 tid. I want to see whether we can raise it to more than 2. If mag still low then will Stop aldactone and use Amiloride instead to help with low mag. No iv mag today -check mag, bmp Daily now. We can continue to titrate her electrolytes as outpt also if need be (2) Hypocalcemia: Plan: -driven by longstanding hypomagnesemia primarily but also Low Vit D. PTH appropriately elevated correct mag as above -Vit D dosing to 5000 units daily Will use TUMS 500 tid (3) CKD (chronic kidney disease) stage 3, GFR 30-59 ml/min: Plan: At OP baseline; some risk for SON given recent IV contrast study -daily bmp -avoid nephrotoxins Subjective says no diarrhea now. No sob worsening. No arm paresthesias but still some mild back pain. no n/v Review of Systems Review of Systems: All systems reviewed & are unremarkable except as noted in Subjective Physical Exam Constitutional: well developed, well nourished, + obese, + frail appearing and cooperative; no acute distress Eyes: EOM intact bilaterally ENMT: Ears: no external ear abnormality Nose: no external nose abnormality Mouth: + dry oral mucous membranes Neck: no nuchal rigidity Respiratory: normal respiratory effort Auscultation: + diminished lung sounds and + crackles (scattered) Cardiovascular: Rate/Rhythm: regular rate and regular rhythm Heart Sounds: no murmur Extremities: + edema (trace) Gastrointestinal (Abdomen): Inspection/Auscultation: normal bowel sounds Percussion/Palpation: abdomen soft; abdomen nontender Musculoskeletal: Extremities: Chronic Skin changes Skin: no rashes, warm and dry Psychiatric: Orientation: oriented x 3 Speech: normal rate/rhythm/volume of speech Results & Data ([facility]) Vital Signs (Past 12 Hours) Vital Signs Temp Pulse Resp BP Pulse Ox 08/13/21 07:30 79 17 98 08/13/21 06:59 36.7 C 65 18 116/77 98 08/13/21 03:14 36.8 C 76 18 120/72 97 08/12/21 23:00 36.5 C 77 16 110/70 100
[2021-08-13] MEDS: FERROUS SULFATE 325 MG TAB PO SCH (14:33)
[2021-08-13] MEDS: WARFARIN SOD 1 MG TAB PO SCH (16:35)
[2021-08-13] MEDS ORDERED: WARFARIN SOD 0.5 MG TAB PO ONE (18:07)
--- NOTE | 2021-08-13 18:08 | Hospitalist Progress Note ---
Date of Service August 13, 2021 Assessment & Plan (1) Hypomagnesemia: (2) Hypocalcemia: Plan: (1) Hypomagnesemia: (2) Hypocalcemia: main problem is hypomagnesemia likely secondarychronic /recurrent diarrhea w/ chronic GI losses x wks to months, chronic PPI use, potentially also d/t ongoing tubular dysfunction after serial SON this year. Patient has received multiple IV and p.o. electrolytes replacement, magnesium is still low. Continue with on p.o. magnesium and p.o. Caltrate Vit D level 15.3 --> Continue with Vit D Supplement c/w Famotidine instead of omeprazole. appreciate Nephro Service, unfortunately given i v mag in the AM, nephrology working on Oral supplement. (3) Chronic anemia: -Chronic, stable, hemoglobin is 9-10, continue iron supplementation (4) Cellulitis: - BLE cellulitis, warmth, erythema, edema has improved - c/w doxy for total of 10 days. (5) Chronic atrial fibrillation: -Anticoagulated on Coumadin, admitting INR 4.3 INR 1.9 today c/w Coumadin with additional doses as needed . INR daily (6) DM type 2 (diabetes mellitus, type 2): -ISS with Accu-Cheks ACHS -Continue Lantus 15 units at bedtime with diet -Last A1c = 6.3 on 07/11/2021 per outpatient epic results review (7) Diastolic CHF: - Chronic, stable -last echo completed on 07/20/2021 Reviewed showing mild concentric LVH, EF of 60 to 65%, left atrium moderately dilated, right ventricle severely dilated, right atrium severely dilated, aortic valve sclerosis moderate, trace MR, moderate to severe TR, elevated right ventricular systolic pressure of 50 to 60 mmHg suggestive of pulmonary hypertension. There is no endocarditis found on mitral valve leaflets. -continue Lasix and Aldactone (8) COPD (chronic obstructive pulmonary disease): Plan: -Chronic, stable continue inhalers DVT PPx: - teds, scds coumadin CODE: Full code Dispo: lives at home PT/OT evaluation Awaiting acceptance to halfway facility. Will need OP electrolyte monitoring. Admission and Anticipated Discharge Date Admission Date: August 06, 2021 Subjective Patient seen and examined at bedside as a follow-up of hypomagnesemia, hypocalcemia and BLE cellulitis. Patient lying in bed, on room air, NAD, no new acute events overnight. Patient denies any fever/headache/dizziness/chest pain/palpitations/belly pain/cough/sore throat/other review of symptoms. Patient reports eating okay. Patient reports having loose stool at baseline. 1 to 2/day. Physical Exam Physical Exam: GENERAL: Alert and oriented x3. NAD, on RA. HEENT: No pallor, no icterus. Pupils equal, round and reactive to light. Oral mucosa moist. NECK: No JVD, no neck masses. HEART: S1 and S2 heard. Regular rate and rhythm. No murmur, no gallop. RESPIRATORY SYSTEM: Normal AP diameter. No accessory muscle use. No wheezing, no crackles. ABDOMEN: Soft, bowel sounds present, nontender, no distention. CENTRAL NERVOUS SYSTEM: No facial droop. Speech is clear. Obeys simple commands. Moves extremities. EXTREMITIES: No BLE edema, BLE chronic skin changes, no erythema seen. Results & Data Results & Data ([facility]) Vital Signs (Past 12 Hours) Vital Signs Temp Pulse Resp BP Pulse Ox 08/13/21 15:04 98 H 22 98 08/13/21 10:57 36.4 C L 81 18 102/66 95 08/13/21 10:48 82 22 97 08/13/21 07:30 79 17 98 08/13/21 06:59 36.7 C 65 18 116/77 98
[2021-08-13] MEDS: INSULIN GLARGINE SOLOSTAR 100 UNITS/ML 3 ML PEN SQ SCH (20:56)
[2021-08-13] MEDS: SIMVASTATIN 20 MG TAB PO SCH (21:05)
[2021-08-14] MEDS: DOXYCYCLINE HYCLATE 100 MG CAP PO SCH ×2 (05:50→17:19)
[2021-08-14 07:12] LABS: Prothrombin Time 20.8 Seconds (9.0-12.0)
[2021-08-14] MEDS: Albuterol HFA 8 GM Inhaler (Combivent Respimat P&T Subs) INH SCH ×4 (07:27→19:47)
[2021-08-14] MEDS: Ipratropium HFA Inhaler (Combivent Respimat P&T Subs) INH SCH ×4 (07:27→19:48)
[2021-08-14 07:31] LABS: BUN Creatinine Ratio 32.8 (10-20); Calcium 9.8 mg/dl (8.5-10.1); Creatinine Clr Calc Pharmacy 37.2 ml/min; Est GFR (African American) 44.8 ml/min; Est GFR (Non-African American) 38.6 ml/min; Magnesium 1.8 mg/dl (1.7-2.4)
[2021-08-14] MEDS: CALCIUM CARBONATE 500 MG CHEWABLE TAB PO SCH ×3 (08:53→21:51)
[2021-08-14] MEDS: FAMOTIDINE 20 MG TAB PO SCH (08:53)
[2021-08-14] MEDS: CHOLECALCIFEROL 5,000 UNITS 125 MCG TAB PO SCH (08:53)
[2021-08-14] MEDS: FLUTICASONE/VILANTEROL 200/25MCG 14 PUFFS/INHALER INH SCH (08:54)
[2021-08-14] MEDS: FUROSEMIDE 20 MG TAB PO SCH (08:54)
[2021-08-14] MEDS: lisinopril 5 MG TAB PO SCH (08:55)
[2021-08-14] MEDS: METOPROLOL TARTRATE 25 MG TAB PO SCH ×2 (08:55→21:53)
[2021-08-14] MEDS: MAGNESIUM CHLORIDE 64MG DELAYED REL TAB PO SCH ×3 (08:55→21:52)
[2021-08-14] MEDS: NYSTATIN CR 15 GM TUBE EXT SCH ×2 (08:56→21:53)
[2021-08-14] MEDS: SPIRONOLACTONE 25 MG TAB PO SCH (08:56)
[2021-08-14] MEDS: ADVANCED PROBIOTIC 1250 MG CAPSULE PO SCH (10:48)
[2021-08-14] MEDS: FERROUS SULFATE 325 MG TAB PO SCH (16:27)
[2021-08-14] MEDS: WARFARIN SOD 1 MG TAB PO SCH (16:27)
--- NOTE | 2021-08-14 17:27 | Hospitalist Progress Note ---
Date of Service August 14, 2021 Assessment & Plan (1) Hypomagnesemia: (2) Hypocalcemia: Plan: (1) Hypomagnesemia: (2) Hypocalcemia: main problem is hypomagnesemia likely secondarychronic /recurrent diarrhea w/ chronic GI losses x wks to months, chronic PPI use, potentially also d/t ongoing tubular dysfunction after serial SON this year. Patient has received multiple IV and p.o. electrolytes replacement, magnesium better today, continue to follow Continue with on p.o. magnesium and p.o. calcium Vit D level 15.3 --> Continue with Vit D Supplement c/w Famotidine instead of omeprazole. appreciate Nephro Service recs. (3) Chronic anemia: -Chronic, stable, hemoglobin is 9-10, continue iron supplementation (4) Cellulitis: - BLE cellulitis, warmth, erythema, edema has improved - c/w doxy for total of 10 days. (5) Chronic atrial fibrillation: -Anticoagulated on Coumadin, admitting INR 4.3 INR 2.0 today c/w Coumadin home dose. INR daily (6) DM type 2 (diabetes mellitus, type 2): -ISS with Accu-Cheks ACHS -Continue Lantus 15 units at bedtime with diet -Last A1c = 6.3 on 07/11/2021 per outpatient epic results review (7) Diastolic CHF: - Chronic, stable -last echo completed on 07/20/2021 Reviewed showing mild concentric LVH, EF of 60 to 65%, left atrium moderately dilated, right ventricle severely dilated, right atrium severely dilated, aortic valve sclerosis moderate, trace MR, moderate to severe TR, elevated right ventricular systolic pressure of 50 to 60 mmHg sugges tive of pulmonary hypertension. There is no endocarditis found on mitral valve leaflets. -continue Lasix and Aldactone (8) COPD (chronic obstructive pulmonary disease): Plan: -Chronic, stable continue inhalers DVT PPx: - teds, scds coumadin CODE: Full code Dispo: lives at home PT/OT evaluation Awaiting acceptance to residential facility. Will need OP electrolyte monitoring. Admission and Anticipated Discharge Date Admission Date: August 06, 2021 Subjective Patient seen and examined at bedside as a follow-up of hypomagnesemia, hypocalcemia and BLE cellulitis. Patient lying in bed, on room air, NAD, no new acute events overnight. Patient denies any fever/headache/dizziness/chest pain/palpitations/belly pain/cough/sore throat/other review of symptoms. Patient reports eating okay. Patient reports having loose stool at baseline. 1 to 2/day. Physical Exam Physical Exam: GENERAL: Alert and oriented x3. NAD, on RA. HEENT: No pallor, no icterus. Pupils equal, round and reactive to light. Oral mucosa moist. NECK: No JVD, no neck masses. HEART: S1 and S2 heard. Regular rate and rhythm. No murmur, no gallop. RESPIRATORY SYSTEM: Normal AP diameter. No accessory muscle use. No wheezing, no crackles. ABDOMEN: Soft, bowel sounds present, nontender, no distention. CENTRAL NERVOUS SYSTEM: No facial droop. Speech is clear. Obeys simple commands. Moves extremities. EXTREMITIES: No BLE edema, BLE chronic skin changes, no erythema seen. Results & Data Results & Data ([facility]) Vital Signs (Past 12 Hours) Vital Signs Temp Pulse Pulse Resp BP BP Pulse Ox 08/14/21 15:39 75 08/14/21 15:26 81 18 91 08/14/21 15:04 36.7 C 100 H 20 109/64 98 08/14/21 11:28 71 16 95 08/14/21 10:40 36.4 C L 87 18 121/68 96 08/14/21 08:00 36.9 C 60 120 H 18 118/64 96 08/14/21 07:27 64 16 98
[2021-08-14] MEDS: INSULIN GLARGINE SOLOSTAR 100 UNITS/ML 3 ML PEN SQ SCH (21:51)
[2021-08-14] MEDS: SIMVASTATIN 20 MG TAB PO SCH (21:53)
[2021-08-14] MEDS: ACETAMINOPHEN 325 MG TAB PO PRN (23:21)
[2021-08-15] MEDS: DOXYCYCLINE HYCLATE 100 MG CAP PO SCH ×2 (06:23→17:09)
[2021-08-15 07:17] LABS: INR 2.1 (0.9-1.1); Prothrombin Time 21.9 Seconds (9.0-12.0)
[2021-08-15 07:18] LABS: BUN Creatinine Ratio 31.7 (10-20); Calcium 9.8 mg/dl (8.5-10.1); Creatinine Clr Calc Pharmacy 33.9 ml/min; Est GFR (African American) 39.6 ml/min; Est GFR (Non-African American) 34.2 ml/min; Magnesium 1.7 mg/dl (1.7-2.4); Potassium 5.2 mmol/L (3.5-5.1)
[2021-08-15] MEDS: Ipratropium HFA Inhaler (Combivent Respimat P&T Subs) INH SCH ×4 (07:20→19:36)
[2021-08-15] MEDS: Albuterol HFA 8 GM Inhaler (Combivent Respimat P&T Subs) INH SCH ×4 (07:20→19:36)
[2021-08-15] MEDS: NYSTATIN CR 15 GM TUBE EXT SCH ×2 (08:54→21:30)
[2021-08-15] MEDS: ADVANCED PROBIOTIC 1250 MG CAPSULE PO SCH (08:55)
[2021-08-15] MEDS: SPIRONOLACTONE 25 MG TAB PO SCH (08:55)
[2021-08-15] MEDS: METOPROLOL TARTRATE 25 MG TAB PO SCH ×2 (08:56→21:30)
[2021-08-15] MEDS: lisinopril 5 MG TAB PO SCH (08:56)
[2021-08-15] MEDS: CHOLECALCIFEROL 5,000 UNITS 125 MCG TAB PO SCH (08:56)
[2021-08-15] MEDS: CALCIUM CARBONATE 500 MG CHEWABLE TAB PO SCH ×3 (08:58→21:28)
[2021-08-15] MEDS: FAMOTIDINE 20 MG TAB PO SCH (08:58)
[2021-08-15] MEDS: FLUTICASONE/VILANTEROL 200/25MCG 14 PUFFS/INHALER INH SCH (08:58)
[2021-08-15] MEDS: MAGNESIUM CHLORIDE 64MG DELAYED REL TAB PO SCH ×3 (08:58→21:27)
[2021-08-15] MEDS: FUROSEMIDE 20 MG TAB PO SCH (09:02)
[2021-08-15] MEDS: FERROUS SULFATE 325 MG TAB PO SCH (15:13)
[2021-08-15] MEDS: WARFARIN SOD 1 MG TAB PO SCH (15:13)
--- NOTE | 2021-08-15 17:33 | Hospitalist Progress Note ---
Date of Service August 15, 2021 Assessment & Plan (1) Hypomagnesemia: (2) Hypocalcemia: Plan: (1) Hypomagnesemia: (2) Hypocalcemia: main problem is hypomagnesemia likely secondarychronic /recurrent diarrhea w/ chronic GI losses x wks to months, chronic PPI use, potentially also d/t ongoing tubular dysfunction after serial SON this year. Patient has received multiple IV and p.o. electrolytes replacement, magnesium better today, continue to follow Continue with on p.o. magnesium and p.o. calcium Vit D level 15.3 --> Continue with Vit D Supplement c/w Famotidine instead of omeprazole. appreciate Nephro Service recs. spironolactone DC'd 08/15 (3) Chronic anemia: -Chronic, stable, hemoglobin is 9-10, continue iron supplementation (4) Cellulitis: - BLE cellulitis, warmth, erythema, edema has improved - c/w doxy for total of 10 days. (5) Chronic atrial fibrillation: -Anticoagulated on Coumadin, admitting INR 4.3 INR 2.1 today c/w Coumadin home dose. INR daily (6) DM type 2 (diabetes mellitus, type 2): -ISS with Accu-Cheks ACHS -Continue Lantus 15 units at bedtime with diet -Last A1c = 6.3 on 07/11/2021 per outpatient epic results review (7) Diastolic CHF: - Chronic, stable -last echo completed on 07/20/2021 Reviewed showing mild concentric LVH, EF of 60 to 65%, left atrium moderately dilated, right ventricle severely dilated, right atrium severely dilated, aortic valve sclerosis moderate, trace MR, moderate to severe TR, elevated right ventricular systolic pressure of 50 to 60 mmHg suggestive of pulmonary hypertension. There is no endocarditis found on mitral valve leaflets. -continue Lasix. (8) COPD (chronic obstructive pulmonary disease): Plan: -Chronic, stable continue inhalers DVT PPx: - teds, scds coumadin CODE: Full code Dispo: lives at home PT/OT evaluation Awaiting acceptance to [facility] facility. Will need OP electrolyte monitoring. Admission and Anticipated Discharge Date Admission Date: August 06, 2021 Subjective Patient seen and examined at bedside as a follow-up of hypomagnesemia, hypocalcemia and BLE cellulitis. Patient lying in bed, on room air, NAD, no new acute events overnight. Patient denies any fever/headache/dizziness/chest pain/palpitations/belly pain/cough/sore throat/other review of symptoms. Patient reports eating okay. Per Rn, pt is doing fine. Patient reports having loose stool at baseline. 1 to 2/day. Physical Exam Physical Exam: GENERAL: Alert and oriented x3. NAD, on RA. HEENT: No pallor, no icterus. Pupils equal, round and reactive to light. Oral mucosa moist. NECK: No JVD, no neck masses. HEART: S1 and S2 heard. Regular rate and rhythm. No murmur, no gallop. RESPIRATORY SYSTEM: Normal AP diameter. No accessory muscle use. No wheezing, no crackles. ABDOMEN: Soft, bowel sounds present, nontender, no distention. CENTRAL NERVOUS SYSTEM: No facial droop. Speech is clear. Obeys simple commands. Moves extremities. EXTREMITIES: No BLE edema, BLE chronic skin changes, no erythema seen. Results & Data Results & Data ([facility]) Vital Signs (Past 12 Hours) Vital Signs Temp Pulse Pulse Resp BP Pulse Ox 08/15/21 16:00 37.0 C 87 18 101/61 97 08/15/21 15:49 82 08/15/21 14:49 94 H 18 95 08/15/21 11:50 36.6 C 80 16 90/54 L 98 08/15/21 10:46 95 H 20 95 08/15/21 08:16 36.5 C 86 18 109/68 95 08/15/21 07:21 95 H 20 95 08/15/21 07:10 73
[2021-08-15] MEDS: SIMVASTATIN 20 MG TAB PO SCH (21:27)
[2021-08-15] MEDS: INSULIN GLARGINE SOLOSTAR 100 UNITS/ML 3 ML PEN SQ SCH (21:30)
[2021-08-16] MEDS: DOXYCYCLINE HYCLATE 100 MG CAP PO SCH (06:19)
[2021-08-16 07:30] LABS: BUN Creatinine Ratio 31.9 (10-20); Calcium 9.6 mg/dl (8.5-10.1); Creatinine Clr Calc Pharmacy 30.2 ml/min; Est GFR (African American) 34.4 ml/min; Est GFR (Non-African American) 29.7 ml/min; Magnesium 1.7 mg/dl (1.7-2.4); Potassium 5.2 mmol/L (3.5-5.1)
[2021-08-16] MEDS: Albuterol HFA 8 GM Inhaler (Combivent Respimat P&T Subs) INH SCH ×4 (07:32→19:52)
[2021-08-16] MEDS: Ipratropium HFA Inhaler (Combivent Respimat P&T Subs) INH SCH ×4 (07:33→19:52)
[2021-08-16 07:34] LABS: INR 2.1 (0.9-1.1); Prothrombin Time 21.6 Seconds (9.0-12.0)
[2021-08-16] MEDS: FLUTICASONE/VILANTEROL 200/25MCG 14 PUFFS/INHALER INH SCH (08:23)
[2021-08-16] MEDS: NYSTATIN CR 15 GM TUBE EXT SCH ×2 (08:23→20:37)
[2021-08-16] MEDS: ADVANCED PROBIOTIC 1250 MG CAPSULE PO SCH (08:24)
[2021-08-16] MEDS: MAGNESIUM CHLORIDE 64MG DELAYED REL TAB PO SCH ×3 (08:24→20:37)
[2021-08-16] MEDS: CHOLECALCIFEROL 5,000 UNITS 125 MCG TAB PO SCH (08:24)
[2021-08-16] MEDS: FUROSEMIDE 20 MG TAB PO SCH (08:24)
[2021-08-16] MEDS: lisinopril 5 MG TAB PO SCH (08:24)
[2021-08-16] MEDS: FAMOTIDINE 20 MG TAB PO SCH (08:24)
[2021-08-16] MEDS: CALCIUM CARBONATE 500 MG CHEWABLE TAB PO SCH ×3 (08:25→20:36)
[2021-08-16] MEDS: METOPROLOL TARTRATE 25 MG TAB PO SCH ×2 (08:25→20:42)
[2021-08-16] MEDS: SODIUM CHLORIDE 0.9% 1000ML 1,000 ML IV SCH ×2 (10:38→23:18)
[2021-08-16] MEDS: FERROUS SULFATE 325 MG TAB PO SCH (14:30)
[2021-08-16] MEDS: WARFARIN SOD 1 MG TAB PO SCH (16:14)
--- NOTE | 2021-08-16 17:51 | Hospitalist Progress Note ---
Date of Service August 16, 2021 Assessment & Plan (1) Hypomagnesemia: (2) Hypocalcemia: Plan: (1) Hypomagnesemia: (2) Hypocalcemia: main problem is hypomagnesemia likely secondarychronic /recurrent diarrhea w/ chronic GI losses x wks to months, chronic PPI use, potentially also d/t ongoing tubular dysfunction after serial SON this year. Patient has received multiple IV and p.o. electrolytes replacement, magnesium better today, continue to follow Continue with on p.o. magnesium and p.o. calcium Vit D level 15.3 --> Continue with Vit D Supplement c/w Famotidine instead of omeprazole. appreciate Nephro Service recs. spironolactone DC'd 08/15 #. SON over CKD III Cr uptrending, hold lasix and lisinopril Unknown etiology, likely prerenal On gentle IV hydration, if w/ no improvement consider reaching out to nephro again f/u with BMP daily and as needed (3) Chronic anemia: -Chronic, stable, hemoglobin is 9-10, continue iron supplementation (4) Cellulitis: - BLE cellulitis, warmth, erythema, edema has improved - c/w doxy for total of 10 days. (5) Chronic atrial fibrillation: -Anticoagulated on Coumadin, admitting INR 4.3 INR therapeutic c/w Coumadin home dose. f/u w/ coumadin clinic as OP. (6) DM type 2 (diabetes mellitus, type 2): -ISS with Accu-Cheks ACHS -Continue Lantus 15 units at bedtime with diet -Last A1c = 6.3 on 07/11/2021 per outpatient epic results review (7) Diastolic CHF: - Chronic, stable -last echo completed on 07/20/2021 Reviewed showing mild concentric LVH, EF of 60 to 65%, left atrium moderately dilated, right ventricle severely dilated, right atrium severely dilated, aortic valve sclerosis moderate, trace MR, moderate to severe TR, elevated right ventricular systolic pressure of 50 to 60 mmHg suggestive of pulmonary hypertension. There is no endocarditis found on mitral valve leaflets. -continue Lasix when appropriate (8) COPD (chronic obstructive pulmonary disease): Plan: -Chronic, stable continue inhalers DVT PPx: - teds, scds coumadin CODE: Full code Dispo: lives at home PT/OT evaluation Awaiting acceptance to [facility] facility. Will need OP electrolyte monitoring. Await DC until Cr starts to downtrend. Admission and Anticipated Discharge Date Admission Date: August 06, 2021 Subjective Patient seen and examined at bedside as a follow-up of hypomagnesemia, hypocalcemia and BLE cellulitis. Patient lying in bed, on room air, NAD, no new acute events overnight. Patient denies any fever/headache/dizziness/chest pain/palpitations/belly pain/cough/sore throat/other review of symptoms. Patient reports eating okay. Per Rn, pt is doing fine. Patient reports having loose stool at baseline. 1 to 2/day. Physical Exam Physical Exam: GENERAL: Alert and oriented x3. NAD, on RA. HEENT: No pallor, no icterus. Pupils equal, round and reactive to light. Oral mucosa moist. NECK: No JVD, no neck masses. HEART: S1 and S2 heard. Regular rate and rhythm. No murmur, no gallop. RESPIRATORY SYSTEM: Normal AP diameter. No accessory muscle use. No wheezing, no crackles. ABDOMEN: Soft, bowel sounds present, nontender, no distention. CENTRAL NERVOUS SYSTEM: No facial droop. Speech is clear. Obeys simple commands. Moves extremities. EXTREMITIES: No BLE edema, BLE chronic skin changes, no erythema seen. Results & Data Results & Data ([facility]) Vital Signs (Past 12 Hours) Vital Signs Temp Pulse Pulse Resp BP Pulse Ox 08/16/21 14:41 83 08/16/21 14:35 78 18 93 08/16/21 11:13 36.5 C 76 20 97/57 L 95 08/16/21 11:01 76 16 95 08/16/21 07:42 74 16 94 08/16/21 07:29 79 08/16/21 07:23 36.5 C 80 18 113/79 94
--- NOTE | 2021-08-16 18:02 | Nephrology Progress Note ---
Date of Service August 16, 2021 Assessment & Plan (1) Hypomagnesemia: Plan: cause unclear at this time and possibly multifactorial > chronic /recurrent diarrhea w/ chronic GI losses x wks to months, chronic PPI use, potentially also d/t ongoing tubular dysfunction after serial SON this year. 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 which is now on hold Question if she needs full 2 L of normal saline ordered this a.m. and will do with hospitalist (4) Diarrhea: Plan: -monitor/ count BM; does not sound especially active past few days but has been recurrent Admission and Anticipated Discharge Date Admission Date: August 06, 2021 Subjective No interval events clinically. Awaiting placement. Minimal appetite. Denies shortness of breath. Denies voiding symptoms. States she tried to ambulate yesterday but had challenges, states "I am not motivated" Review of Systems Review of Systems: All systems reviewed & are unremarkable except as noted in Subjective Physical Exam Constitutional: well developed, well nourished, + obese, + frail appearing and cooperative; no acute distress Eyes: EOM intact bilaterally ENMT: Ears: no external ear abnormality Nose: no external nose abnormality Mouth: + dry oral mucous membranes Neck: no nuchal rigidity Respiratory: normal respiratory effort Auscultation: lungs clear to auscultation bilaterally and + diminished lung sounds Cardiovascular: Rate/Rhythm: regular rate and regular rhythm Heart Sounds: no murmur Extremities: + edema (trace left ankle ) Gastrointestinal (Abdomen): Inspection/Auscultation: normal bowel sounds Percussion/Palpation: abdomen soft; abdomen nontender Musculoskeletal: Extremities: strength 5/5 throughout Skin: no rashes, warm and dry Neurologic: Moves all extremities, fluent speech, no tremor Psychiatric: Orientation: oriented x 3 Speech: normal rate/rhythm/volume of speech Genitourinary: No [place] Results & Data ([facility]) Vital Signs (Past 12 Hours) Vital Signs Temp Pulse Pulse Resp BP Pulse Ox 08/16/21 14:41 83 08/16/21 14:35 78 18 93 08/16/21 11:13 36.5 C 76 20 97/57 L 95 08/16/21 11:01 76 16 95 08/16/21 07:42 74 16 94 08/16/21 07:29 79 08/16/21 07:23 36.5 C 80 18 113/79 94 Laboratory Results 08/09/21 05:34 08/16/21 06:36 (1) Diarrhea Diarrhea type: unspecified type Qualified Code(s): R19.7 - Diarrhea, unspecif ied
[2021-08-16] MEDS: SIMVASTATIN 20 MG TAB PO SCH (20:36)
[2021-08-16] MEDS: INSULIN GLARGINE SOLOSTAR 100 UNITS/ML 3 ML PEN SQ SCH (20:37)
[2021-08-17 06:13] LABS: Hematocrit (blood only) 37.6 % (37-47); Hemoglobin 11.5 g/dL (12.0-16.0); Mean Corpuscular Hemoglobin 26.4 pg (25-34); Mean Corpuscular Hgb Conc 30.6 g/dL (32-36); Mean Corpuscular Volume 86.4 fL (80-100); Mean Platelet Volume 11.5 fL (7.4-10.4); Platelet Count 216 K/uL (130-400); RDW Standard Deviation 54.8 fL (36.4-46.3); Red Blood Count 4.35 M/uL (4.2-5.4); White Blood Count 8.14 K/uL (4.8-10.8)
[2021-08-17 06:35] LABS: BUN Creatinine Ratio 31.6 (10-20); Calcium 9.3 mg/dl (8.5-10.1); Est GFR (African American) 28.6 ml/min; Est GFR (Non-African American) 24.6 ml/min; Magnesium 1.8 mg/dl (1.7-2.4); Phosphorus 4.2 mg/dl (2.5-4.9); Potassium 5.2 mmol/L (3.5-5.1)
[2021-08-17] MEDS: Albuterol HFA 8 GM Inhaler (Combivent Respimat P&T Subs) INH SCH ×4 (07:17→19:46)
[2021-08-17] MEDS: Ipratropium HFA Inhaler (Combivent Respimat P&T Subs) INH SCH ×4 (07:18→19:45)
[2021-08-17] MEDS: FLUTICASONE/VILANTEROL 200/25MCG 14 PUFFS/INHALER INH SCH (08:04)
[2021-08-17] MEDS: METOPROLOL TARTRATE 25 MG TAB PO SCH ×2 (08:04→20:45)
[2021-08-17] MEDS: MAGNESIUM CHLORIDE 64MG DELAYED REL TAB PO SCH ×2 (08:05→13:29)
[2021-08-17] MEDS: ADVANCED PROBIOTIC 1250 MG CAPSULE PO SCH (08:05)
[2021-08-17] MEDS: CHOLECALCIFEROL 5,000 UNITS 125 MCG TAB PO SCH (08:05)
[2021-08-17] MEDS: CALCIUM CARBONATE 500 MG CHEWABLE TAB PO SCH ×3 (08:05→20:45)
[2021-08-17] MEDS: FAMOTIDINE 20 MG TAB PO SCH (08:06)
[2021-08-17] MEDS: NYSTATIN CR 15 GM TUBE EXT SCH ×2 (08:06→20:46)
--- NOTE | 2021-08-17 10:37 | XRay Report ---
XR chest 1V portable CLINICAL HISTORY: hx HF; on IVF, eval volume status TECHNIQUE: Single frontal radiograph of the chest was obtained. Comparison: Comparison is made to chest one view 08/05/2021 FINDINGS: No lines and tubes are seen. Calcified aortic knob is seen. The lungs are clear. No evidence of pleur al effusion or pneumothorax. IMPRESSION: No acute abnormality and in particular no evidence of pulmonary edema. ACT 112: Negative or not required by law. Electronically signed by: Jerry De La Cruz M.D. 08/17/2021 10:35 AM
[2021-08-17 10:57] LABS: Appearance Urine Clear (Clear); Bilirubin Urine Negative (Negative); Blood Urine Negative (Negative); Color Urine Yellow; Glucose Urine UA Negative (Negative); Ketones Urine Negative (Negative); Leukocyte Esterase Urine Negative (Negative); Nitrite Urine Negative (Negative); Protein Urine Negative (Negative); Specific Gravity Urine 1.011 (1.000-1.030); Urobilinogen Urine Negative (Negative)
[2021-08-17] MEDS: FERROUS SULFATE 325 MG TAB PO SCH (13:29)
--- NOTE | 2021-08-17 14:46 | Nephrology Progress Note ---
Date of Service August 17, 2021 Assessment & Plan (1) Acute renal failure superimposed on stage 4 chronic kidney disease: Plan: OP baseline is creatinine 1.4; now w/ acute kidney injury creat to 1.9 with mild hyperkalemia. cxr reassuring no OL; not eating much at all; urine sediment bland. -does need low K diet for now -daily bmp -avoid nephrotoxins Continue to hold spironolactone; GODFREY inhibitor and diuretic held as of August 17 just had IV fluid 1.6 L past 36 hrs > hold further IVF for now (2) Hypomagnesemia: Plan: cause unclear at this time and possibly multifactorial > chronic /recurrent diarrhea w/ chronic GI losses x wks to months, chronic PPI use, potentially also d/t ongoing tubular dysfunction after serial SON this year. 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 (3) Hypocalcemia: Plan: -driven by longstanding hypomagnesemia primarily though D stores also low; PTH appropriately elevated >correct mag as above -Continue increased D dosing 5000 units daily >continue Tums but bid not tid (4) Diarrhea: Plan: -monitor/ count BM; does not sound especially active past few days but has been recurrent this year Admission and Anticipated Discharge Date Admission Date: August 06, 2021 Physical Exam Constitutional: well developed, well nourished, + obese, + frail appearing and cooperative; no acute distress Eyes: EOM intact bilaterally ENMT: Ears: no external ear abnormality Nose: no external nose abnormality Mouth: + dry oral mucous membranes Neck: no nuchal rigidity Respiratory: normal respiratory effort Auscultation: lungs clear to auscultation bilaterally and + diminished lung sounds Cardiovascular: Rate/Rhythm: regular rate and regular rhythm Heart Sounds: no murmur Extremities: + edema (trace left ankle ) Gastrointestinal (Abdomen): Inspection/Auscultation: normal bowel sounds Percussion/Palpation: abdomen soft; abdomen nontender Musculoskeletal: Extremities: strength 5/5 throughout Skin: no rashes, warm and dry Psychiatric: Orientation: oriented x 3 Speech: normal rate/rhythm/volume of speech Results & Data ([facility]) Vital Signs (Past 12 Hours) Vital Signs Temp Pulse Pulse Resp BP BP Pulse Ox 08/17/21 11:28 98/65 L 03/27/22 11:10 36.5 C 77 19 97 08/17/21 10:58 74 16 96 08/17/21 07:20 78 16 96 08/17/21 07:12 36.5 C 79 19 101/57 L 96 08/17/21 07:07 79 08/17/21 04:00 36.5 C 81 22 117/75 95 Laboratory Results 08/17/21 05:43 08/17/21 05:43 Diagnostic Findings cxr > no acute abnormality (1) Diarrhea Diarrhea type: unspecified type Qualified Code(s): R19.7 - Diarrhea, unspecified
--- NOTE | 2021-08-17 15:01 | Hospitalist Progress Note ---
Date of Service August 17, 2021 Assessment & Plan (1) Hypomagnesemia: (2) Hypocalcemia: Plan: (1) Hypomagnesemia: (2) Hypocalcemia: main problem is hypomagnesemia likely secondarychronic /recurrent diarrhea w/ chronic GI losses x wks to months, chronic PPI use, potentially also d/t ongoing tubular dysfunction after serial SON this year. Mg supplement BID, continue to monitor. Vit D level 15.3 --> Continue with Vit D Supplement c/w Famotidine instead of omeprazole. appreciate Nephro Service recs. spironolactone DC'd 08/15 #. SON over CKD III Cr uptrending, held lasix and lisinopril from 08/17 Unknown etiology, likely prerenal IVF held, continue to monitor BMP daily continue to hold nephrotoxics, appreciate nephro recs. (3) Chronic anemia: -Chronic, stable, hemoglobin is 10-11, continue iron supplementation (4) Cellulitis: - BLE cellulitis, warmth, erythema, edema has improved - s/p doxy for total of 10 days. (5) Chronic atrial fibrillation: -Anticoagulated on Coumadin, admitting INR 4.3 INR therapeutic c/w Coumadin home dose. f/u w/ coumadin clinic as OP. (6) DM type 2 (diabetes mellitus, type 2): -ISS with Accu-Cheks ACHS -Continue Lantus 15 units at bedtime with diet -Last A1c = 6.3 on 07/11/2021 per outpatient epic results review (7) Diastolic CHF: - Chronic, stable -last echo completed on 07/20/2021 Reviewed showing mild concentric LVH, EF of 60 to 65%, left atrium moderately dilated, right ventricle severely dilated, right atrium severely dilated, aortic valve sclerosis moderate, trace MR, moderate to severe TR, elevated right ventricular systolic pressure of 50 to 60 mmHg suggestive of pulmonary hypertension. There is no endocarditis found on mitral valve leaflets. -continue Lasix when appropriate (8) COPD (chronic obstructive pulmonary disease): Plan: -Chronic, stable continue inhalers DVT PPx: - teds, scds coumadin CODE: Full code Dispo: lives at home PT/OT evaluation Awaiting acceptance to [facility] facility. Will need OP electrolyte monitoring. Await DC until Cr starts to downtrend. Admission and Anticipated Discharge Date Admission Date: August 06, 2021 Subjective Patient seen and examined at bedside as a follow-up of hypomagnesemia, hypocalcemia and BLE cellulitis. Patient lying in bed, on room air, NAD, no new acute events overnight. Pt reports eating less, states she doesn't feel hungry. Patient denies any fever/headache/dizziness/chest pain/palpitations/belly pain/cough/sore throat/other review of symptoms. Physical Exam Physical Exam: GENERAL: Alert and oriented x3. NAD, on RA. HEENT: No pallor, no icterus. Pupils equal, round and reactive to light. Oral mucosa moist. NECK: No JVD, no neck masses. HEART: S1 and S2 heard. Regular rate and rhythm. No murmur, no gallop. RESPIRATORY SYSTEM: Normal AP diameter. No accessory muscle use. No wheezing, no crackles. ABDOMEN: Soft, bowel sounds present, nontender, no distention. CENTRAL NERVOUS SYSTEM: No facial droop. Speech is clear. Obeys simple commands. Moves extremities. EXTREMITIES: No BLE edema, BLE chronic skin changes, no erythema seen. Results & Data Results & Data ([facility]) Vital Signs (Past 12 Hours) Vital Signs Temp Pulse Pulse Resp BP BP Pulse Ox 08/17/21 14:48 80 18 96 08/17/21 11:28 98/65 L 08/17/21 11:10 36.5 C 77 19 97 08/17/21 10:58 74 16 96 08/17/21 07:20 78 16 96 08/17/21 07:12 36.5 C 79 19 101/57 L 96 08/17/21 07:07 79 08/17/21 04:00 36.5 C 81 22 117/75 95
[2021-08-17] MEDS: WARFARIN SOD 1 MG TAB PO SCH (15:47)
[2021-08-17] MEDS: SIMVASTATIN 20 MG TAB PO SCH (20:45)
[2021-08-17] MEDS: INSULIN GLARGINE SOLOSTAR 100 UNITS/ML 3 ML PEN SQ SCH (20:47)
[2021-08-18 06:29] LABS: Prothrombin Time 20.3 Seconds (9.0-12.0)
[2021-08-18 06:40] LABS: BUN Creatinine Ratio 41.2 (10-20); Calcium 9.7 mg/dl (8.5-10.1); Creatinine Clr Calc Pharmacy 36.4 ml/min; Est GFR (African American) 42.8 ml/min; Est GFR (Non-African American) 36.9 ml/min; Magnesium 1.9 mg/dl (1.7-2.4); Potassium 4.9 mmol/L (3.5-5.1)
[2021-08-18] MEDS: Albuterol HFA 8 GM Inhaler (Combivent Respimat P&T Subs) INH SCH ×4 (07:17→19:20)
[2021-08-18] MEDS: Ipratropium HFA Inhaler (Combivent Respimat P&T Subs) INH SCH ×4 (07:18→19:19)
[2021-08-18] MEDS: ADVANCED PROBIOTIC 1250 MG CAPSULE PO SCH (07:46)
[2021-08-18] MEDS: FLUTICASONE/VILANTEROL 200/25MCG 14 PUFFS/INHALER INH SCH (07:46)
[2021-08-18] MEDS: FAMOTIDINE 20 MG TAB PO SCH (07:47)
[2021-08-18] MEDS: CALCIUM CARBONATE 500 MG CHEWABLE TAB PO SCH (07:47)
[2021-08-18] MEDS: CHOLECALCIFEROL 5,000 UNITS 125 MCG TAB PO SCH (07:47)
[2021-08-18] MEDS: METOPROLOL TARTRATE 25 MG TAB PO SCH ×2 (07:47→20:28)
[2021-08-18] MEDS: NYSTATIN CR 15 GM TUBE EXT SCH ×2 (07:48→20:28)
[2021-08-18] MEDS: MAGNESIUM CHLORIDE 64MG DELAYED REL TAB PO SCH (08:30)
[2021-08-18] MEDS ORDERED: MAGNESIUM CHLORIDE 64MG DELAYED REL TAB PO SCH (09:00)
--- NOTE | 2021-08-18 11:04 | Nephrology Progress Note ---
Date of Service August 18, 2021 Assessment & Plan (1) Acute renal failure superimposed on stage 4 chronic kidney disease: Plan: resolved stage 1 nonoliguric SON; OP baseline is creatinine 1.4; had w/ acute kidney injury creat to 1.9 with mild hyperkalemia on 08/17; improved today w/ med changes. cxr reassuring no OL; not eating much at all; urine sediment bland. -does need low K diet for now -daily bmp -avoid nephrotoxins would for now Continue to hold spironolactone; GODFREY inhibitor and diuretic held as of August 17 Waiting on bed at [facility]; will give continue to follow but give d/c recommendations in case bed is free NEPHRO DISCHARGE RECOMMENDATIONS -hospital discharge appt with Dr Mccarthy or me 2-4 weeks after discharge in [facility] [place] [place] -weekly bmp and magnesium x 3 weeks to be done at [facility]; [facility] die lay out worker to alert [facility] neph[place] RN to expect these labs from [facility] -d/c on D3 and mag supplements as below >>may need to hold spironolactone, godfrey inhibitor, loop diuretic at hospital discharge > discuss with nephrology (2) Hypomagnesemia: Plan: cause unclear at this time and possibly multifactorial > chronic /recurrent diarrhea w/ chronic GI losses x wks to months, chronic PPI use, potentially also d/t ongoing tubular dysfunction after serial SON this year. improved w/ aggressive repletion -check mag, bmp daily -Discharge on H2 joann, not PPI -lowered Slow-Mag from 3 to 2 times daily (3) Hypocalcemia: Plan: -driven by longstanding hypomagnesemia primarily though D stores also low; PTH appropriately elevated >correct mag as above -Continue increased D dosing 5000 units daily >stopped tums today > observe off of Ca supplement and on D alone (4) Diarrhea: Plan: -monitor/ count BM; does not sound especially active past few days but has been recurrent this year Admission and Anticipated Discharge Date Admission Date: August 06, 2021 Subjective no interval events. no complaints. diarrhea has not been an issue this admission despite high dose mag supplements pt states. no sob. leg hyperesthesia unchanged; awaiting rehab bed [facility] Review of Systems Review of Systems: All systems reviewed & are unremarkable except as noted in Subjective Physical Exam Constitutional: well developed, well nourished, + obese, + frail appearing and cooperative; no acute distress Eyes: EOM intact bilaterally ENMT: Ears: no external ear abnormality Nose: no external nose abnormality Mouth: + dry oral mucous membranes Neck: no nuchal rigidity Respiratory: normal respiratory effort Auscultation: lungs clear to auscultation bilaterally and + diminished lung sounds Cardiovascular: Rate/Rhythm: regular rate and regular rhythm Heart Sounds: no murmur Extremities: + edema (trace BLE) Gastrointestinal (Abdomen): Inspection/Auscultation: normal bowel sounds Percussion/Palpation: abdomen soft; abdomen nontender Musculoskeletal: Extremities: strength 5/5 throughout Skin: no rashes, warm and dry Neurologic: generalized weakness; no tremor, fluent speech Psychiatric: Orientation: oriented x 3 Speech: normal rate/rhythm/volume of speech Results & Data ([facility]) Vital Signs (Past 12 Hours) Vital Signs Temp Pulse Resp BP Pulse Ox 08/18/21 07:43 36.4 C L 74 16 130/77 95 08/18/21 07:18 79 18 97 Laboratory Results 08/17/21 05:43 08/18/21 05:45 (1) Diarrhea Diarrhea type: unspecified type Qualified Code(s): R19.7 - Diarrhea, unspecified
[2021-08-18] MEDS: FERROUS SULFATE 325 MG TAB PO SCH (13:12)
--- NOTE | 2021-08-18 13:48 | Hospitalist Progress Note ---
Date of Service August 18, 2021 Assessment & Plan (1) Hypomagnesemia: (2) Hypocalcemia: Plan: (1) Hypomagnesemia: (2) Hypocalcemia: main problem is hypomagnesemia likely secondarychronic /recurrent diarrhea w/ chronic GI losses x wks to months, chronic PPI use, potentially also d/t ongoing tubular dysfunction after serial SON this year. Mg supplement Daily, continue to monitor. Vit D level 15.3 --> Continue with Vit D Supplement, stopped tums today. c/w Famotidine instead of omeprazole. appreciate Nephro Service recs. spironolactone DC'd 08/15 #. SON over CKD III Cr improved, held lasix and lisinopril from 08/17 and aldactone from 08/15 Continue to monitor BMP daily, f/u nephro as OP in 2-4 weeks Weekly BMP and Mg for 3 weeks, have results forwarded to Nephro. continue to hold nephrotoxics upon DC, appreciate nephro recs. (3) Chronic anemia: -Chronic, stable, hemoglobin is 10-11, continue iron supplementation (4) Cellulitis: - BLE cellulitis, warmth, erythema, edema has improved - s/p doxy for total of 10 days. (5) Chronic atrial fibrillation: -Anticoagulated on Coumadin, admitting INR 4.3 INR therapeutic c/w Coumadin home dose. f/u w/ coumadin clinic as OP. (6) DM type 2 (diabetes mellitus, type 2): -ISS with Accu-Cheks ACHS -Continue Lantus 15 units at bedtime with diet -Last A1c = 6.3 on 07/11/2021 per outpatient epic results review (7) Diastolic CHF: - Chronic, stable -last echo completed on 07/20/2021 Reviewed showing mild concentric LVH, EF of 60 to 65%, left atrium moderately dilated, right ventricle severely dilated, right atrium severely dilated, aortic valve sclerosis moderate, trace MR, moderate to severe TR, elevated right ventricular systolic pressure of 50 to 60 mmHg suggestive of pulmonary hypertension. There is no endocarditis found on mitral valve leaflets. -continue Lasix when appropriate (8) COPD (chronic obstructive pulmonary disease): Plan: -Chronic, stable continue inhalers DVT PPx: - teds, scds coumadin CODE: Full code Dispo: lives at home PT/OT evaluation Awaiting acceptance to residential facility. Will need OP electrolyte monitoring. Medically stable to go. Likely DC lukas. Admission and Anticipated Discharge Date Admission Date: August 06, 2021 Subjective Patient seen and examined at bedside as a follow-up of hypomagnesemia, hypocalcemia and BLE cellulitis. Patient lying in bed, on room air, NAD, no new acute events overnight. Pt reports eating less may be 50-60% of her diet, states she doesn't feel hungry. Pt is on low K diet, and apparently patient doesn't like it. Patient denies any fever/headache/dizziness/chest pain/palpitations/belly pain/cough/sore throat/other review of symptoms. Physical Exam Physical Exam: GENERAL: Alert and oriented x3. NAD, on RA. HEENT: No pallor, no icterus. Pupils equal, round and reactive to light. Oral mucosa moist. NECK: No JVD, no neck masses. HEART: S1 and S2 heard. Regular rate and rhythm. No murmur, no gallop. RESPIRATORY SYSTEM: Normal AP diameter. No accessory muscle use. No wheezing, no crackles. ABDOMEN: Soft, bowel sounds present, nontender, no distention. CENTRAL NERVOUS SYSTEM: No facial droop. Speech is clear. Obeys simple commands. Moves extremities. EXTREMITIES: No BLE edema, BLE chronic skin changes, no erythema seen. Results & Data Results & Data ([facility]) Vital Signs (Past 12 Hours) Vital Signs Temp Pulse Resp BP Pulse Ox 08/18/21 10:57 75 18 95 08/18/21 07:43 36.4 C L 74 16 130/77 95 08/18/21 07:18 79 18 97
[2021-08-18] MEDS: WARFARIN SOD 1 MG TAB PO SCH (17:28)
[2021-08-18] MEDS: SIMVASTATIN 20 MG TAB PO SCH (20:27)
[2021-08-18] MEDS: INSULIN GLARGINE SOLOSTAR 100 UNITS/ML 3 ML PEN SQ SCH (21:00)
[2021-08-19] MEDS: Ipratropium HFA Inhaler (Combivent Respimat P&T Subs) INH SCH ×3 (06:53→15:26)
[2021-08-19] MEDS: Albuterol HFA 8 GM Inhaler (Combivent Respimat P&T Subs) INH SCH ×3 (06:54→15:26)
[2021-08-19] MEDS: METOPROLOL TARTRATE 25 MG TAB PO SCH (08:50)
[2021-08-19] MEDS: CHOLECALCIFEROL 5,000 UNITS 125 MCG TAB PO SCH (08:50)
[2021-08-19] MEDS: MAGNESIUM CHLORIDE 64MG DELAYED REL TAB PO SCH (08:50)
[2021-08-19] MEDS: ADVANCED PROBIOTIC 1250 MG CAPSULE PO SCH (08:51)
[2021-08-19] MEDS: FLUTICASONE/VILANTEROL 200/25MCG 14 PUFFS/INHALER INH SCH (08:52)
[2021-08-19] MEDS: NYSTATIN CR 15 GM TUBE EXT SCH (08:52)
[2021-08-19] MEDS: FAMOTIDINE 20 MG TAB PO SCH (08:53)
[2021-08-19 09:21] LABS: BUN Creatinine Ratio 38.3 (10-20); Calcium 9.7 mg/dl (8.5-10.1); Creatinine Clr Calc Pharmacy 36.9 ml/min; Est GFR (Non-African American) 37.9 ml/min; Magnesium 1.8 mg/dl (1.7-2.4); Potassium 4.9 mmol/L (3.5-5.1)
[2021-08-19] MEDS: FERROUS SULFATE 325 MG TAB PO SCH (15:12)
--- NOTE | 2021-08-19 15:13 | Discharge Summary ---
Date of Service August 19, 2021 Admission HPI Per Admitting Provider This is a 80 yo F with PMHx of A. fib on coumadin, diastolic CHF, tachy-job syndrome, DM type II, CKD stage III, COPD, HLD presents with acute hypomagnesemia and hypocalcemia from [facility]. She was seen in the ER yesterday on 08/05/2021 for hypocalcemia where she was given 1000 mg IV calcium gluconate. Repeat labs today show minimal improvement,so the KATHRYN-Pablo at [facility] requested the patient come to the ER for admission. Yesterday her magnesium was 0.9, calcium was 6.1 today as outpatient. Upon arrival here her calcium was noted to be 5.7, and her magnesium is <0.5. Pt reports that she has had upper extremity numbness, cramping and tingling in her upper extremities bilaterally as well as in the posterior neck and in her mid back. This has been going on for several days and getting worse. She was here in the ER yesterday with similar complaints and low calcium and magnesium levels, but was treated and sent back to [facility]. Today she presents with her son and both people are irritated that she was not admitted yesterday. She denies any other acute complaints. She took her morning medications including Coumadin to her knowledge, and took a dose of Lasix last evening where she had increased urinary outs overnight. She was started on doxycycline yesterday here in the ER for possible cellulitis of her bilateral lower legs as they were somewhat red and warm, in the shaking/cramping in her arms and legs also happened at the beginning of her developing a worsening cellulitis approximately 1 month ago. She was started on 1 g calcium gluconate and magnesium 2 g IV in the ER. N ephrology will be consulted. Admission Exam Per Admitting Provider General: awake, alert, no apparent distress, obese with BMI of 37.5 Head: Normocephalic, atraumatic ENT: PERRL, EOMI, no pharyngeal exudate, mucous membranes moist Chest: Clear to auscultation, on room air, no adventitious breath sounds Cardiac: irregularly irregular, rate controlled, soft murmur, no JVD, normal peripheral pulses, good capillary refill Abdominal: NABS x 4 quadrants, soft, nondistended, nontender to palpation, no rebound or guarding Extremities: + chronic venous stasis changes of BLE, multiple ulcerations, erythema extending from the ankle to below the knee with some warmth, no peripheral edema, calfs nontender to palpation Psych: Normal mood and affect Neuro: AAO x 3, strength intact bilaterally and rated 5/5, no motor deficits, speech is clear, no peripheral sensory deficits Principal Diagnosis Hypomagnesemia Hypocalcemia SON over CKD stage III Chronic anemia BLE cellulitis Discharge Exam GENERAL: Alert and oriented x3. NAD, on RA. HEENT: No pallor, no icterus. Pupils equal, round and reactive to light. Oral mucosa moist. NECK: No JVD, no neck masses. HEART: S1 and S2 heard. Regular rate and rhythm. No murmur, no gallop. RESPIRATORY SYSTEM: Normal AP diameter. No accessory muscle use. No wheezing, no crackles. ABDOMEN: Soft, bowel sounds present, nontender, no distention. CENTRAL NERVOUS SYSTEM: No facial droop. Speech is clear. Obeys simple commands. Moves extremities. EXTREMITIES: No BLE edema, BLE chronic skin changes, no erythema seen. Discharge Data Allergies Allergy/AdvReac Type Severity Reaction Status Date / Time metformin Allergy Severe EDEMA FACE Verified 08/05/21 14:14 AND HANDS, ITCHY ciprofloxacin Allergy Intermediate RASH Verified 08/05/21 14:14 clindamycin Allergy Intermediate RASH Verified 08/05/21 14:14 pollen extracts Allergy Mild RUNNY NOSE Verified 08/05/21 14:14 Cephalosporins Allergy Unknown Unknown Verified 08/05/21 14:14 montelukast [From Singulair] Allergy Unknown CAN'T Verified 08/05/21 14:14 REMEMBER Penicillins Allergy Unknown CAN'T Verified 08/05/21 14:14 REMEMBER Sulfa (Sulfonamide Allergy Unknown CAN'T Verified 08/05/21 14:14 Antibiotics) REMEMBER Consultations 08/06/21 17:22 Consult Nephrology Routine 08/06/21 17:23 ED Decision to Admit Stat Hospital Course (1) Hypomagnesemia: (2) Hypocalcemia: 80 yo F was managed for the following while in hospital: (1) Hypomagnesemia: (2) Hypocalcemia: main problem is hypomagnesemia likely secondarychronic /recurrent diarrhea w/ chronic GI losses x wks to months, chronic PPI use, potentially also d/t ongoing tubular dysfunction after serial SON this year. Mg supplement Daily, continue to monitor. Vit D level 15.3 --> Continue with Vit D Supplement, stopped tums today. c/w Famotidine instead of omeprazole. appreciate Nephro Service recs. spironolactone DC'd 08/15 Per Nephro Mg supplement twice a day upon DC and Vit D3 5000 Units daily, weekly BMP and Mg x 3 weeks; f/u nephro in 2 weeks. #. SON over CKD III Cr improved, held lasix and lisinopril from 08/17 and aldactone from 08/15 Continue to monitor BMP daily, f/u nephro as OP in 2-4 weeks Weekly BMP and Mg for 3 weeks, have results forwarded to Nephro. continue to hold nephrotoxics upon DC, appreciate nephro recs. (3) Chronic anemia: -Chronic, stable, hemoglobin is 10-11, continue iron supplementation (4) Cellulitis: - BLE cellulitis, warmth, erythema, edema has improved - s/p doxy for total of 10 days. (5) Chronic atrial fibrillation: -Anticoagulated on Coumadin, admitting INR 4.3 INR therapeutic c/w Coumadin dose that has been decrease compared to prior dose. f/u w/ coumadin clinic as OP. PT/INR in 3 days upon DC. (6) DM type 2 (diabetes mellitus, type 2): -ISS with Accu-Cheks ACHS -Continue Lantus 15 units at bedtime with diet -Last A1c = 6.3 on 07/11/2021 per outpatient epic results review (7) Diastolic CHF: - Chronic, stable -last echo completed on 07/20/2021 Reviewed showing mild concentric LVH, EF of 60 to 65%, left atrium moderately dilated, right ventricle severely dilated, right atrium severely dilated, aortic valve sclerosis moderate, trace MR, moderate to severe TR, elevated right ventricular systolic pressure of 50 to 60 mmHg suggestive of pulmonary hypertension. There is no endocarditis found on mitral valve leaflets. -continue Lasix when appropriate (8) COPD (chronic obstructive pulmonary disease): Plan: -Chronic, stable continue inhalers DVT PPx: - teds, scds coumadin CODE: Full code Dispo: lives at home PT/OT evaluation Patient being discharged to stay with following instruction at the point of discharge: Follow-up with your primary care physician within a week time. You will need close follow-up with Coumadin clinic as an outpatient. Get your blood work PT/INR done in 3 days upon discharge. Your warfarin dose has been reduced to 1 mg daily based on your PT/INR while in hospital. Continue your electrolyte supplements as follows: Magnesium supplement 2 times a day Vitamin D 5000 units daily Your lisinopril/spironolactone/Lasix has been held upon discharge, follow-up with nephrology in 2 weeks upon discharge for further discussion/reassessment for resuming these medications.This is very important as discussed at the bedside. Get your blood work BMP and magnesium level done every week for 3 weeks. Have the results forwarded to your primary care physician and nephrology. Your omeprazole has been discontinued, instead you have been put on famotidine upon discharge. Avoid Prilosec or Protonix in future. Take your medications as prescribed. Total Time Total Time Spent Total Time Spent (In Minutes): 40 Discharge Plan Discharge Items Patient Disposition: Transfer Long Term Fac Reason For Visit: HYPOMAGNESEMIA, HYPOCALCEMIA Discharge Diagnosis: Hypomagnesemia Hypocalcemia SON over CKD stage III Chronic anemia BLE cellulitis Activity: Resume your previous activity Non-emergency contact: Primary Care Provider Call non-emergency contact if: you have any medication questions, your symptoms worsen and your temperature is above 101 Follow-up/Referrals: Jimi Sanchez, [Primary Care Provider] - Diet: Carb Consistent or DM2, Heart Healthy and Low Potassium (2gm) Addtl Attending Provider Instructions: Follow-up with your primary care physician within a week time. You will need close follow-up with Coumadin clinic as an outpatient. Get your blood work PT/INR done in 3 days upon discharge. Your warfarin dose has been reduced to 1 mg daily based on your PT/INR while in hospital. Continue your electrolyte supplements as follows: Magnesium supplement 2 times a day Vitamin D 5000 units daily Your lisinopril/spironolactone/Lasix has been held upon discharge, follow-up with nephrology in 2 weeks upon discharge for further discussion/reassessment for resuming these medications.This is very important as discussed at the bedside. Get your blood work BMP and magnesium level done every week for 3 weeks. Have the results forwarded to your primary care physician and nephrology. Your omeprazole has been discontinued, instead you have been put on famotidine upon discharge. Avoid Prilosec or Protonix in future. Take your medications as prescribed. Pending Studies at Discharge: No Stand-Alone Forms: My [facility] [address] Skilled Items Patient informed of condition?: Yes DNR: No Discharge Level of Care: Skilled Communicable Disease: No Discharge Prognosis: Stable Lines: None Urinary Catheter: No Medications and DC Order Prescriptions: New warfarin [Jantoven] 1 mg Tablet 1 mg PO DAILY@1600 Qty: 30 RF: 0 Mag 64 64 mg Tablet,Delayed Release (Dr/Ec) 128 mg PO DAILY Qty: 120 RF: 0 famotidine 20 mg Tablet 20 mg PO QAM Qty: 30 RF: 0 Advanced Probiotic 625 mg (10 billion cell) Capsule 2 cap PO DAILY Qty: 60 RF: 0 cholecalciferol (vitamin D3) 125 mcg (5,000 unit) Tablet 5,000 unit PO QAM Qty: 30 RF: 0 Continued Combivent Respimat 20-100 mcg/actuation mist 1 puffs INH QID RF: 0 simvastatin 20 mg Tablet 20 mg PO HS RF: 0 Lantus Solostar U-100 Insulin 100 unit/mL (3 mL) insulin pen 15 units SUBCUT HS RF: 0 ferrous sulfate [iron] 325 mg (65 mg iron) Tablet 325 mg PO .DAILY IN AFTERNOON RF: 0 fluticasone propion-salmeterol [Wixela Inhub] 250-50 mcg/dose blister with device 1 inh inhalation BID RF: 0 acetaminophen [Tylenol] 325 mg Tablet 650 mg PO Q4 PRN (Reason: Pain (Scale Score 1-3)) RF: 0 acetaminophen 325 mg Tablet 650 mg PO QID MDD 3g PRN (Reason: temp>100) RF: 0 docusate sodium [Colace] 100 mg Capsule 100 mg PO .Q 24HR PRN (Reason: Constipation) RF: 0 metoprolol tartrate 25 mg Tablet 50 mg PO AMHS RF: 0 insulin aspart U-100 [Novolog Flexpen U-100 Insulin] 100 unit/mL (3 mL) Insulin Pen 0 unit SUBCUT AC RF: 0 nystatin 100,000 unit/gram Cream 1 applic TOPICAL AMHS RF: 0 Discontinued omeprazole 20 mg Capsule,Delayed Release(Dr/Ec) 20 mg PO HS RF: 0 magnesium oxide 400 mg magnesium Tablet 400 mg PO QAM RF: 0 lisinopril 5 mg tablet 5 mg PO QAM RF: 0 warfarin 2 mg tablet 1 mg PO DAILY RF: 0 doxycycline hyclate 100 mg tablet 100 mg PO BID 10 Days Qty: 20 RF: 0 cholecalciferol (vitamin D3) [Vitamin D3] 25 mcg (1,000 unit) Tablet 50 mcg PO DAILY RF: 0 calcium carbonate-vitamin D3 [Calcium 500 + D] 500 mg-10 mcg (400 unit) Tablet 1 tab PO BID RF: 0 spironolactone 50 mg tablet 50 mg PO QAM RF: 0 furosemide 20 mg Tablet 60 mg PO UD RF: 0 warfarin 1 mg Tablet 1 mg PO HS RF: 0 Discharge Orders: Discharge Order (Routine); Ordered 08/19/21 Ordered By: Jose Bryant Admission Data Admit Date/Time: 08/06/21 17:22 Attending Provider: Jose Bryant Admit Provider: Tino Méndez Primary Care Provider: Jimi Sanchez Other Providers: [place] ; Marisa Luna ; Tino Méndez Other Interventions: Discharge Summary Assessment (RN) Last Done: 08/19/21 14:53
[2021-08-19] MEDS: WARFARIN SOD 1 MG TAB PO SCH (15:18)
--- NOTE | 2021-08-19 16:32 | Nephrology Progress Note ---
Date of Service August 19, 2021 Assessment & Plan (1) Acute renal failure superimposed on stage 4 chronic kidney disease: Plan: resolved stage 1 nonoliguric SON; OP baseline is creatinine 1.4; had w/ acute kidney injury creat to 1.9 with mild hyperkalemia on 08/17; improved today w/ med changes. cxr reassuring no OL; not eating much at all; urine sediment bland. -does need low K diet for now -daily bmp -avoid nephrotoxins would for now Continue to hold spironolactone; GODFREY inhibitor and diuretic held as of August 17 Waiting on bed at [facility]; will give continue to follow but give d/c recommendations in case bed is free NEPHRO DISCHARGE RECOMMENDATIONS -hospital discharge appt with Dr Mccarthy or me 2-4 weeks after discharge in [facility] -weekly bmp and magnesium x 3 weeks to be done at [facility]; [facility] maintenance planner to alert G nephro RN to expect these labs from [facility] -d/c on D3 and mag supplements as below >>may need to hold spironolactone, godfrey inhibitor, loop diuretic at hospital discharge > discuss with nephrology (2) Hypomagnesemia: Plan: cause unclear at this time and possibly multifactorial > chronic /recurrent diarrhea w/ chronic GI losses x wks to months, chronic PPI use, potentially also d/t ongoing tubular dysfunction after serial SON this year. improved w/ aggressive repletion -check mag, bmp daily -Discharge on H2 joann, not PPI -lowered Slow-Mag from 3 to 2 times daily (3) Hypocalcemia: Plan: -driven by longstanding hypomagnesemia primarily though D stores also low; PTH appropriately elevated >correct mag as above -Continue increased D dosing 5000 units daily >stopped tums today > observe off of Ca supplement and on D alone (4) Diarrhea: Plan: -monitor/ count BM; does not sound especially active past few days but has been recurrent this year Admission and Anticipated Discharge Date Admission Date: August 06, 2021 Subjective seen on rounds midday; no complaints particularly except sob, generalized weakness when she was up from bed w/in room; has not done PT yet today Review of Systems Review of Systems: All systems reviewed & are unremarkable except as noted in Subjective Physical Exam Constitutional: well developed, well nourished, + obese, + frail appearing and cooperative; no acute distress Eyes: EOM intact bilaterally ENMT: Ears: no external ear abnormality Nose: no external nose abnormality Mouth: + dry oral mucous membranes Neck: no nuchal rigidity Respiratory: + labored breathing Auscultation: lungs clear to auscultation bilaterally and + diminished lung sounds Cardiovascular: Rate/Rhythm: regular rate and regular rhythm Heart Sounds: no murmur Extremities: + edema (trace BLE) Gastrointestinal (Abdomen): Inspection/Auscultation: normal bowel sounds Percussion/Palpation: abdomen soft; abdomen nontender Musculoskeletal: Extremities: strength 5/5 throughout hyperesthesias Skin: no rashes, warm and dry Neurologic: rodriguez, no tremor Psychiatric: Orientation: oriented x 3 Speech: normal rate/rhythm/volume of speech Results & Data ([facility]) Vital Signs (Past 12 Hours) Vital Signs Temp Pulse Pulse Resp BP BP Pulse Ox 08/19/21 15:27 77 18 95 08/19/21 14:53 36.4 C L 106 H 80 20 111/68 123/84 95 08/19/21 11:06 80 20 95 08/19/21 08:09 36.4 C L 77 16 111/68 98 08/19/21 06:54 66 20 95 Laboratory Results 08/17/21 05:43 08/19/21 08:15 (1) Diarrhea Diarrhea type: unspecified type Qualified Code(s): R19.7 - Diarrhea, unspecified
== END 2021-08-19 16:22 | DRG 641 ==
LOC: ED 15:10 → 2S 17:22 → SUATTDRO 17:22 → 2S 20:08 → 3W 08-17 12:49

== ENCOUNTER 2022-02-14 11:57 | Inpatient (IN) ==
[2022-02-14] MEDS ORDERED: fentaNYL citrate 100 MCG/2 ML VIAL IV STA ×2 (12:09→16:48)
--- NOTE | 2022-02-14 12:16 | Emergency Department Note ---
Impression & Plan Odontoid fracture, Venous stasis ulcers of both lower extremities, Fall, Back pain, Skin tear ED Provider Note Provider: Rm Feliz MD DATE OF SERVICE: 02/14/2022 CHIEF COMPLAINT: Fall HISTORY OF PRESENT ILLNESS: Patient is a 81-year-old female past medical history of COPD on chronic 2 L oxygen, diabetes, CHF, venous stasis of lower extremities, chronic atrial fibrillation on Coumadin, and CKD presenting here today after a fall. Patient states she was taking her dog out for a walk on a leash and was at the edge of the porch and the dog pulled her down the steps about 3 to 4 feet to the ground. Denies losing consciousness. Complaining of pain in her neck and predominantly in the left hip but also generally all over. EMS was summoned and brought her here for further evaluation. Patient does again endorse long-term Coumadin use. She states her breathing is at baseline. No nausea or vomiting reported. Has not had anything for pain prior to arrival. Reviewed home medication list and reportedly has chronic ulcers of her lower legs that she has been bandaging. REVIEW OF SYSTEMS: A total of 10 review of systems was obtained and negative except as stated above in the HPI. PAST MEDICAL HISTORY: As noted above MEDICATIONS: Reviewed home medication list includes Coumadin SOCIAL HISTORY: Resides at home PHYSICAL EXAM: GENERAL: alert and oriented in no acute distress on stretcher currently in c- collar and on backboard. Head: normocephalic and atraumatic EYES: No injection, discharge or icterus. PERRL, EOMI. NECK: Trachea midline. Supple with cervical collar in place ENT: Mucous membranes pink and moist. LUNGS: Airway patent. No retractions. Breath sounds clear with good air entry bilaterally. HEART: Regular rate and rhythm. No chest wall tenderness ABDOMEN: Soft and non-tender, without guarding or rebound. BACK: Mild diffuse pain throughout the back without significant midline step-off appreciated. SKIN: Acyanotic, warm, dry with a slightly erythematous inguinal rash around the lower abdomen nonvesicular and Nikolsky negative. EXTREMITIES: Show a slight abrasion over the right middle finger without significant depth. There is skin tear on the right mid forearm. Patient with 1-2+ swelling of the lower extremities with some chronic stasis changes which are currently bandaged upon arrival. NEUROLOGICAL: No focal deficits. No aphasia. No facial droop or slurred speech. EK bpm atrial fibrillation without acute ST segment elevation with nonspecific T wave changes. QTc 469. CONTINUOUS CARDIAC MONITORING: was ordered and showed a heart rate of 70s-80s bpm in atrial fibrillation GCS 15. Patient's laboratory studies and imaging reviewed. Differential includes Fracture, dislocation, contusion, intra-abdominal, pneumothorax, intrathoracic, intracranial, neurologic, compartment syndrome, rhabdomyolysis, as well as other pathologies. IMPRESSION/MEDICAL DECISION MAKING: Staff assist maintaining cervical spine immobilization patient was logrolled off of backboard. Trauma CT scans will be obtained. Given some fentanyl for pain. X-rays of the chest and pelvis and left hip obtained given the predominant complaints of pain here. As some small skin tears but nothing that seems to require would be amenable to suturing given the superficial nature. Tetanus per records is up-to-date. Basic labs obtained. X-ray reports per radiology without evidence of traumatic hip or pelvis fracture with some pulmonary congestion and possibly subacute rib fractures without pneumothorax. Blood work with minimal anemia. No leukocytosis. INR subtherapeutic 1.5 today. Stable renal function. Does have somewhat high glucose in the 300s. Hypomagnesemia of 1.5 noted. No significant troponin elevation. Per radiology CT of the head without significant acute skull fracture or intracranial hemorrhage. CT of the chest, abdomen pelvis, and lumbar spine without significant acute traumatic pathology or subacute rib fractures are noted. Discussed with the patient and she does not remember any significant falls in the last several weeks. Neurologically intact but the CT of the cervical spine significantly shows evidence of a C2 odontoid fracture. Discussed with our spine service here. Dr. Jean recommended a Miner J collar be continued and that he could monitor this here. Discussed with the patient. There will be recommendations for several days of subtherapeutic INR. Hospitalist contacted to admit for further care of the patient here and spine will follow in consultation. DIAGNOSIS: fall, C2 fracture, back pain, skin tears DISPOSITION: Hospitalist will evaluate Patient was agreeable with this plan. Past Med/Surg History Medical History A-fib Cellulitis CKD (chronic kidney disease) stage 3, GFR 30-59 ml/min COPD (chronic obstructive pulmonary disease) Diastolic CHF DM type 2 (diabetes mellitus, type 2) Dyslipidemia Hypomagnesemia Hypoxemic respiratory failure, chronic Nocturnal hypoxemia Obesity hypoventilation syndrome Osteoarthritis Pacemaker infection s/p removal Sepsis Staphylococcus aureus bacteremia Tachycardia-bradycardia syndrome Type 2 diabetes mellitus Surgical History History of cataract surgery History of hysterectomy History of total left knee replacement S/P adenoidectomy Family History Mother Diabetes Heart disease Social History Smoking Status: Former smoker Tobacco Type: Cigarettes Second Hand Exposure: Yes; Hx Alcohol Use: No Hx Substance Use: No Preferred Language: Sinhala Communication Ability: Effective Visual Impairment: No Limitations Hearing Ability: Normal Manager Wound Care Required: No Beliefs That Will Affect Care: None marital status: Single Current Living Situation: Alone Current Living Situation Comment: Lives alone, son + granddaughter live nearby current occupational status: retired How many Children do You have: 1 Feels Safe at Home: Yes Assistive Devices: Walker Allergies Allergies Allergy/AdvReac Type Severity Reaction Status Date / Time metformin Allergy Severe EDEMA FACE Verified 02/14/22 13:04 AND HANDS, ITCHY ciprofloxacin Allergy Intermediate RASH Verified 02/14/22 13:04 clindamycin Allergy Intermediate RASH Verified 02/14/22 13:04 pollen extracts Allergy Mild RUNNY NOSE Verified 02/14/22 13:04 Cephalosporins Allergy Unknown Unknown Verified 02/14/22 13:04 montelukast [From Singulair] Allergy Unknown CAN'T Verified 02/14/22 13:04 REMEMBER Penicillins Allergy Unknown CAN'T Verified 02/14/22 13:04 REMEMBER Sulfa (Sulfonamide Allergy Unknown CAN'T Verified 02/14/22 13:04 Antibiotics) REMEMBER Home Meds Home Medications Medication Instructions Recorded Confirmed simvastatin 20 mg tablet 20 mg PO HS 05/08/18 02/14/22 ferrous sulfate 325 mg (65 mg 325 mg PO .DAILY IN AFTERNOON 07/30/18 02/14/22 iron) tablet (iron) insulin glargine 100 unit/mL (3 15 units subcut HS 10/03/18 02/14/22 mL) subcutaneous pen (Lantus Solostar U-100 Insulin) ipratropium 20 mcg-albuterol 100 1 puffs inhalation QID 10/03/18 02/14/22 mcg/actuation mist for inhalation (Combivent Respimat) fluticasone 250 mcg-salmeterol 50 1 inh inhalation BID 03/28/19 02/14/22 mcg/dose blistr powdr for inhalation (Wixela Inhub) acetaminophen 325 mg tablet 650 mg PO Q4 PRN Pain (Scale Score 06/02/21 02/14/22 (Tylenol) 1-3) acetaminophen 325 mg tablet 650 mg PO QID PRN temp>100 08/06/21 02/14/22 docusate sodium 100 mg capsule 100 mg PO .Q 24HR PRN Constipation 08/06/21 02/14/22 (Colace) insulin aspart U-100 100 unit/mL 0 unit subcut AC 08/06/21 02/14/22 (3 mL) subcutaneous pen (Novolog Flexpen U-100 Insulin aspart) metoprolol tartrate 25 mg tablet 50 mg PO AMHS 08/06/21 02/14/22 nystatin 100,000 unit/gram topical 1 applic topical AMHS 08/06/21 02/14/22 cream Previous Rx's Medication Instructions Recorded L.acidop,casei,lactis,rham-B.lact,shawna 2 cap PO DAILY #60 caps 08/19/21 625 mg (10 billion cell) capsule (Advanced Probiotic) cholecalciferol (vitamin D3) 125 5,000 unit PO QAM #30 tabs 08/19/21 mcg (5,000 unit) tablet famotidine 20 mg tablet 20 mg PO QAM #30 tabs 08/19/21 magnesium chloride 64 mg 128 mg PO DAILY #120 tabs 08/19/21 (magnesium chloride) tablet,delayed release (Mag 64) warfarin 1 mg tablet (Jantoven) 1 mg PO DAILY@1600 #30 tabs 08/19/21 Results & Data (ED) Vital Signs Vital Signs - 24 hr 02/14/22 12:10 02/14/22 12:14 02/14/22 12:20 Temperature 36.8 C Temperature Source Oral Pulse Rate 86 77 73 Pulse Rate from SpO2 Sensor 73 84 Pulse Rhythm Regular Pulse Strength Normal Respiratory Rate 18 35 H 32 H Respiratory Effort / Characteristics Non-Labored Spontaneous Respiratory Depth Normal Respiratory Pattern Regular Blood Pressure 181/93 H Blood Pressure Mean 122 Blood Pressure Position Lying Pulse Oximetry 98 94 90 Oxygen Delivery Method Nasal Cannula Oxygen Flow Rate 4 Sepsis Recent Fever Within 48 Hours No Sepsis New/Unexplained Change in Mental Status N/A Sepsis Action Taken by Nursing No Action Required 02/14/22 12:30 02/14/22 12:40 02/14/22 12:50 Temperature Temperature Source Pulse Rate 74 83 84 Pulse Rate from SpO2 Sensor 80 85 83 Pulse Rhythm Pulse Strength Respiratory Rate 31 H 25 H 25 H Respiratory Effort / Characteristics Respiratory Depth Respiratory Pattern Blood Pressure Blood Pressure Mean Blood Pressure Position Pulse Oximetry 98 100 100 Oxygen Delivery Method Oxygen Flow Rate Sepsis Recent Fever Within 48 Hours Sepsis New/Unexplained Change in Mental Status Sepsis Action Taken by Nursing 02/14/22 13:00 02/14/22 13:06 02/14/22 13:06 Temperature Temperature Source Pulse Rate 84 82 Pulse Rate from SpO2 Sensor 83 85 Pulse Rhythm Pulse Strength Respiratory Rate 29 H 26 H Respiratory Effort / Characteristics Respiratory Depth Respiratory Pattern Blood Pressure 181/93 H Blood Pressure Mean 122 Blood Pressure Position Pulse Oximetry 99 100 Oxygen Delivery Method Oxygen Flow Rate Sepsis Recent Fever Within 48 Hours Sepsis New/Unexplained Change in Mental Status Sepsis Action Taken by Nursing 02/14/22 13:10 02/14/22 13:20 02/14/22 13:30 Temperature Temperature Source Pulse Rate 89 83 Pulse Rate from SpO2 Sensor 82 81 Pulse Rhythm Pulse Strength Respiratory Rate 27 H 27 H Respiratory Effort / Characteristics Respiratory Depth Respiratory Pattern Blood Pressure 166/95 H Blood Pressure Mean 118 Blood Pressure Position Pulse Oximetry 99 96 Oxygen Delivery Method Oxygen Flow Rate Sepsis Recent Fever Within 48 Hours Sepsis New/Unexplained Change in Mental Status Sepsis Action Taken by Nursing 02/14/22 13:30 02/14/22 13:40 02/14/22 13:50 Temperature Temperature Source Pulse Rate 81 77 80 Pulse Rate from SpO2 Sensor 80 87 85 Pulse Rhythm Pulse Strength Respiratory Rate 23 25 H 26 H Respiratory Effort / Characteristics Respiratory Depth Respiratory Pattern Blood Pressure Blood Pressure Mean Blood Pressure Position Pulse Oximetry 97 98 98 Oxygen Delivery Method Oxygen Flow Rate Sepsis Recent Fever Within 48 Hours Sepsis New/Unexplained Change in Mental Status Sepsis Action Taken by Nursing 02/14/22 14:00 02/14/22 14:00 Temperature Temperature Source Pulse Rate 86 Pulse Rate from SpO2 Sensor 88 Pulse Rhythm Pulse Strength Respiratory Rate 27 H Respiratory Effort / Characteristics Respiratory Depth Respiratory Pattern Blood Pressure 179/104 H Blood Pressure Mean 129 Blood Pressure Position Pulse Oximetry 96 Oxygen Delivery Method Oxygen Flow Rate Sepsis Recent Fever Within 48 Hours Sepsis New/Unexplained Change in Mental Status Sepsis Action Taken by Nursing Laboratory Data Result diagrams: 02/14/22 13:29 02/14/22 13:29 Lab Results 02/14/22 02/14/22 02/14/22 Range/Units 13:29 13:29 13:29 WBC 9.01 (4.8-10.8) K/ul RBC 3.59 L (3.93-5.22) M/uL Hgb 10.3 L (12.0-16.0) g/dl POC Hgb (12.0-16.0) g/dl Hct 33.9 L (34.1-44.9) % POC Hct (37-47) % MCV 94.4 (80.0-100.0) fL MCH 28.7 (25.0-34.0) pg MCHC 30.4 L (32.0-36.0) g/dL RDW Std Deviation 52.9 H (36.4-46.3) fL RDW Coeff of Silvana 15.3 H (11.5-14.5) % Plt Count 154 (130-400) K/uL MPV 11.5 (9.4-12.3) fL Immature Gran % (Auto) 0.7 % Neut % (Auto) 86.7 % Lymph % (Auto) 6.9 % [place] % (Auto) 3.9 % Eos % (Auto) 1.2 % Baso % (Auto) 0.6 % Neut # (Auto) 7.82 H (1.4-6.5) K/uL Lymph # (Auto) 0.62 L (1.2-3.4) K/uL [place] # (Auto) 0.35 (0.24-0.82) K/uL Eos # (Auto) 0.11 (0-0.50) K/uL Baso # (Auto) 0.05 (0-0.2) K/uL Immature Gran # (Auto) 0.06 H (0.00-0.02) K/uL PT 15.4 H (9.0-12.0) Seconds INR 1.5 H (0.9-1.1) POC Sodium (135-144) mmol/L Sodium 138 (136-145) mmol/L POC Potassium (3.3-5.0) mmol/L Potassium 4.7 (3.5-5.1) mmol/L POC Chloride (101-112) mmol/L Chloride 101 (98-107) mmol/L Carbon Dioxide 32 (21-32) mmol/L POC Total CO2 (24-31) mmol/L Anion Gap 5 (3-11) POC Anion Gap (16-25) mmol/L POC BUN (7-18) mg/dl BUN 22 (6-23) mg/dl Creatinine 0.97 (0.6-1.2) mg/dl POC Creatinine (0.6-1.3) mg/dl Est Cr Clr Drug Dosing Not Reportable Est GFR ( Amer) 63.9 ml/min Est GFR (Non-Af Amer) 55.2 ml/min BUN/Creatinine Ratio 22.7 H (10-20) Glucose 310 H* (70-99(Fasting)) mg/dl POC Glucose (other) (70-99) mg/dl Calcium 9.4 (8.5-10.1) mg/dl POC Ioniz Calcium Sammie (1.12-1.32) mmol/l Magnesium 1.5 L (1.7-2.4) mg/dl Total Bilirubin 1.1 H (0.2-1.0) mg/dl AST 24 (13-39) U/L ALT 14 (7-52) U/L Alkaline Phosphatase 331 H (34-104) U/L Total Creatine Kinase 30 (26-192) U/L Troponin I High Sens 12.7 (0-14) pg/ml Total Protein 7.3 (6.0-8.3) gm/dl Albumin 3.4 (3.4-5.0) gm/dl Globulin 3.9 (2.5-4.0) gm/dl Albumin/Globulin Ratio 0.9 (0.9-2) SARS-CoV-2, RNA, NAAT (NEGATIVE) 02/14/22 02/14/22 Range/Units 13:32 15:45 WBC (4.8-10.8) K/ul RBC (3.93-5.22) M/uL Hgb (12.0-16.0) g/dl POC Hgb 10.9 L (12.0-16.0) g/dl Hct (34.1-44.9) % POC Hct 32 L (37-47) % MCV (80.0-100.0) fL MCH (25.0-34.0) pg MCHC (32.0-36.0) g/dL RDW Std Deviation (36.4-46.3) fL RDW Coeff of Silvana (11.5-14.5) % Plt Count (130-400) K/uL MPV (9.4-12.3) fL Immature Gran % (Auto) % Neut % (Auto) % Lymph % (Auto) % [place] % (Auto) % Eos % (Auto) % Baso % (Auto) % Neut # (Auto) (1.4-6.5) K/uL Lymph # (Auto) (1.2-3.4) K/uL [place] # (Auto) (0.24-0.82) K/uL Eos # (Auto) (0-0.50) K/uL Baso # (Auto) (0-0.2) K/uL Immature Gran # (Auto) (0.00-0.02) K/uL PT (9.0-12.0) Seconds INR (0.9-1.1) POC Sodium 141 (135-144) mmol/L Sodium (136-145) mmol/L POC Potassium 4.7 (3.3-5.0) mmol/L Potassium (3.5-5.1) mmol/L POC Chloride 100 L (101-112) mmol/L Chloride (98-107) mmol/L Carbon Dioxide (21-32) mmol/L POC Total CO2 30 (24-31) mmol/L Anion Gap (3-11) POC Anion Gap 16.0 (16-25) mmol/L POC BUN 22 H (7-18) mg/dl BUN (6-23) mg/dl Creatinine (0.6-1.2) mg/dl POC Creatinine 1.0 (0.6-1.3) mg/dl Est Cr Clr Drug Dosing Est GFR ( Amer) ml/min Est GFR (Non-Af Amer) ml/min BUN/Creatinine Ratio (10-20) Glucose (70-99(Fasting)) mg/dl POC Glucose (other) 330 H (70-99) mg/dl Calcium (8.5-10.1) mg/dl POC Ioniz Calcium Sammie 1.22 (1.12-1.32) mmol/l Magnesium (1.7-2.4) mg/dl Total Bilirubin (0.2-1.0) mg/dl AST (13-39) U/L ALT (7-52) U/L Alkaline Phosphatase (34-104) U/L Total Creatine Kinase (26-192) U/L Troponin I High Sens (0-14) pg/ml Total Protein (6.0-8.3) gm/dl Albumin (3.4-5.0) gm/dl Globulin (2.5-4.0) gm/dl Albumin/Globulin Ratio (0.9-2) SARS-CoV-2, RNA, NAAT NEGATIVE (NEGATIVE) Administered Medications Magnesium Sulfate/Dextrose (Magnesium Sulfate / D5w) 1 gm in 100 mls @ 200 mls/hr IV Q30M ERIC Stop: 02/14/22 17:44 Last Admin: 02/14/22 17:16 Dose: 200 mls/hr Documented By: [id number] Discontinued Medications Fentanyl Citrate (Fentanyl Citrate 100 Mcg/2 Ml Vial) 50 mcg IV NOW STA Stop: 02/14/22 12:10 Last Admin: 02/14/22 13:20 Dose: 50 mcg Documented By: [id number] Fentanyl Citrate (Fentanyl Citrate 100 Mcg/2 Ml Vial) 50 mcg IV NOW STA Stop: 02/14/22 16:49 Last Admin: 02/14/22 17:16 Dose: 50 mcg Documented By: [id number] Ioversol (Optiray 350 100ml) 87 ml IV ONCE ONE Stop: 02/14/22 14:14 Last Admin: 02/14/22 14:22 Dose: 87 ml Documented By: ROSA M Imaging Data Radiologist's Impression: Chest X-Ray 02/14/22 12:09 XR chest 1V portable HISTORY: 81 years-old Female fall acute chest trauma status post fall COMPARISON: Chest radiograph 08/17/2021 TECHNIQUE: Supine AP view of the chest FINDINGS: Cardiac silhouette is enlarged. Pulmonary vascular congestion without pneumothorax. Trace pleural effusions with mild bibasilar atelectasis. Degenerative changes of the shoulders and spine. Healing subacute nondisplaced bilateral rib fractures. Possible calcification projecting over the neck. IMPRESSION: 1. Cardiomegaly with pulmonary vascular congestion. 2. Trace pleural effusions. 3. No pneumothorax. 4. Healing subacute appearing nondisplaced bilateral rib fractures. ACT 112: Negative or not required by law. The above report was generated using voice recognition software. It may contain grammatical, syntax or spelling errors. Electronically signed by: Beto Francis M.D. 02/14/2022 12:30 PM Hip/Pelvis X-Ray 02/14/22 12:09 XR hip LT 2V w pelvis HISTORY: 81 years-old Female fall, l hip pain acute pelvic pain status post fall COMPARISON: CT abdomen and pelvis 08/05/2021 TECHNIQUE: AP view of the pelvis with 2 views of the left hip FINDINGS: Mild to moderate right with moderate left hip osteoarthritis. No acute fracture, dislocation or avascular necrosis. Arterial calcifications. Moderate fecal retention. IMPRESSION: No acute fracture or dislocation. ACT 112: Negative or not required by law. The above report was generated using voice recognition software. It may contain grammatical, syntax or spelling errors. Electronically signed by: Beto Francis M.D. 02/14/2022 12:33 PM Abdomen/Pelvis CT 02/14/22 12:[address] WITH CONTRAST; CT ABDOMEN AND PELVIS WITH IV CONTRAST; CT LUMBAR SPINE WITH IV CONTRAST CT DOSE: 3634.04 mGy.cm HISTORY: Acute chest, abdominal and back trauma status post fall Trauma, fall on coumadin TECHNIQUE: Multiaxial CT images of the chest, abdomen and pelvis and lumbar spine were performed following the IV administration of 87 cc of Optiray. A dose lowering technique was utilized adhering to the principles of ALARA. COMPARISON: CT abdomen and pelvis 08/05/2021, chest CT 08/09/2018 FINDINGS: CT CHEST: No thyroid nodule identified. Borderline enlarged subcarinal and right hilar lymph nodes measure up to 9 mm. Moderate to marked cardiomegaly without pericardial effusion. Notably the right heart chambers are enlarged. Moderate to extensive coronary artery calcifications. No thoracic aortic aneurysm or dissection. There is patency of the imaged great vessels. Unremarkable pulmonary artery. Subsegmental bibasilar atelectasis. Intralobular septal thickening with intermixed groundglass opacities. Bronchial wall thickening. No suspicious pulmonary nodules or masses are identified. Central airways are patent. Minimal age-indeterminate superior endplate compression of the T1, T2 and T3 vertebral bodies of less than 20% without retropulsion. Healing subacute appearing nondisplaced bilateral rib fractures. No acute displaced rib fracture identified. CT ABDOMEN/PELVIS: No pneumatosis or pneumoperitoneum. Spleen, pancreas and gallbladder and right adrenal gland appear unremarkable. Unchanged left adrenal gland thickening. Diffusely heterogeneous appearance of the liver with marginal nodularity. No hepatic mass identified. Mild nonspecific bilateral perinephric stranding. There are a few subcentimeter bilateral renal hypodensities which are incompletely characterized, possibly small cysts. No hydronephrosis. Unremarkable urinary bladder. Hysterectomy. 3.1 cm left ovarian cyst is unchanged. Atherosclerosis of the aorta without aneurysm. Subcentimeter retroperitoneal lymph nodes are nonspecific. Question gastric wall thickening redemonstrated. No bowel obstruction or bowel wall thickening. Mild fecal retention. Normal appendix. Generalized body wall edema. Degenerative changes of the spine, pelvis and hips. 30% L1 compression deformity is unchanged from prior without retropulsion. Lumbar levoscoliosis. CT LUMBAR SPINE: Chronic L1 compression fracture. Grade 1 anterolisthesis L4 on L5, likely degenerative related. Multilevel intervertebral disc space narrowing, moderate to severe at L2-L3, L3-L4 and L5-S1. No acute fracture or subluxation. Severe mu ltilevel facet arthrosis. Multilevel central canal and neural foraminal narrowing. Central canal stenosis at L4-L5 appears to be severe. The imaged sacrum and iliac bones appear intact. IMPRESSION: 1. No acute extrahepatic intrathoracic, intra-abdominal or intrapelvic abnormality. 2. Cardiomegaly with mild pulmonary edema. 3. Cirrhotic morphology of the liver, possibly secondary to congestive h epatopathy. 4. No acute fracture identified. 5. Additional findings as above. ACT 112: Negative or not required by law. Electronically signed by: Beto Francis M.D. 02/14/2022 3:[address] 02/14/22 12:10 CT cervical spine wo con CLINICAL HISTORY: 81 years-old Female with Trauma, fall on coumadin. Acute head and neck injury status post fall COMPARISON: CT head of same day, CT cervical spine 07/19/2021 TECHNIQUE: Multiple axial CT images of the cervical spine were obtained without contrast. A dose lowering technique was utilized adhering to the principles of ALARA. FINDINGS: Moderate to severe facet arthrosis with associated intervertebral disc space narrowing and spondylitic spurring with chondrocalcinosis of the disc spaces. There is an acute comminuted fracture involving the C2 vertebral body which involves the odontoid process base and lateral masses (type III). 4 mm and volar displacement of the superior most fracture component. Fracture extends into the right C2 pedicle and right vertebral foramen. Severe degeneration of the C1-C2 articulation. No additional acute fracture or subluxation identified. The cervical soft tissues appear unremarkable. Intralobular septal thickening of the lung apices may represent pulmonary edema. No pneumothorax. Trace prevertebral edema at the level C1-C2. IMPRESSION: Acute comminuted fracture of C2 with a type III odontoid fracture. Fracture extends into the right pedicle and vertebral foramen. Correlation with CTA of the neck recommended to exclude an acute vertebral artery injury. ACT 112: Negative or not required by law. The above report was generated using voice recognition software. It may contain grammatical, syntax or spelling errors. Electronically signed by: Beto Francis M.D. 02/14/2022 2:[address] 02/14/22 12:[address] WITH CONTRAST; CT ABDOMEN AND PELVIS WITH IV CONTRAST; CT LUMBAR SPINE WITH IV CONTRAST CT DOSE: 3634.04 mGy.cm HISTORY: Acute chest, abdominal and back trauma status post fall Trauma, fall on coumadin TECHNIQUE: Multiaxial CT images of the chest, abdomen and pelvis and lumbar spine were performed following the IV administration of 87 cc of Optiray. A dose lowering technique was utilized adhering to the principles of ALARA. COMPARISON: CT abdomen and pelvis 08/05/2021, chest CT 08/09/2018 FINDINGS: CT CHEST: No thyroid nodule identified. Borderline enlarged subcarinal and right hilar lymph nodes measure up to 9 mm. Moderate to marked cardiomegaly without pericardial effusion. Notably the right heart chambers are enlarged. Moderate to extensive coronary artery calcifications. No thoracic aortic aneurysm or dissection. There is patency of the imaged great vessels. Unremarkable pulmonary artery. Subsegmental bibasilar atelectasis. Intralobular septal thickening with intermixed groundglass opacities. Bronchial wall thickening. No suspicious pulmonary nodules or masses are identified. Central airways are patent. Minimal age-indeterminate superior endplate compression of the T1, T2 and T3 vertebral bodies of less than 20% without retropulsion. Healing subacute appearing nondisplaced bilateral rib fractures. No acute displaced rib fracture identified. CT ABDOMEN/PELVIS: No pneumatosis or pneumoperitoneum. Spleen, pancreas and gallbladder and right adrenal gland appear unremarkable. Unchanged left adrenal gland thickening. Diffusely heterogeneous appearance of the liver with marginal nodularity. No hepatic mass identified. Mild nonspecific bilateral perinephric stranding. There are a few subcentimeter bilateral renal hypodensities which are incompletely characterized, possibly small cysts. No hydronephrosis. Unremarkable urinary bladder. Hysterectomy. 3.1 cm left ovarian cyst is unchanged. Atherosclerosis of the aorta without aneur ysm. Subcentimeter retroperitoneal lymph nodes are nonspecific. Question gastric wall thickening redemonstrated. No bowel obstruction or bowel wall thickening. Mild fecal retention. Normal appendix. Generalized body wall edema. Degenerative changes of the spine, pelvis and hips. 30% L1 compression deformity is unchanged from prior without retropulsion. Lumbar levoscoliosis. CT LUMBAR SPINE: Chronic L1 compression fracture. Grade 1 anterolisthesis L4 on L5, likely degenerative related. Multilevel intervertebral disc space narrowing, moderate to severe at L2-L3, L3-L4 and L5-S1. No acute fracture or subluxation. Severe multilevel facet arthrosis. Multilevel central canal and neural foraminal narrowing. Central canal stenosis at L4-L5 appears to be severe. The imaged sacrum and iliac bones appear intact. IMPRESSION: 1. No acute extrahepatic intrathoracic, intra-abdominal or intrapelvic abnormality. 2. Cardiomegaly with mild pulmonary edema. 3. Cirrhotic morphology of the liver, possibly secondary to congestive hepatopathy. 4. No acute fracture identified. 5. Additional findings as above. ACT 112: Negative or not required by law. Electronically signed by: Beto Francis M.D. 02/14/2022 3:[address] 02/14/22 12:10 CT head/brain wo con CLINICAL HISTORY: 81 years-old Female with Trauma, fall on coumadin. Acute head and neck trauma status post fall TECHNIQUE: Multiple axial CT images of the head were obtained without contrast. A dose lowering technique was utilized adhering to the principles of ALARA. COMPARISON: CT cervical spine of same day. FINDINGS: No acute intracranial hemorrhage, midline shift, intracranial mass, hydrocephalus, territorial ischemia or abnormal extra-axial collection. Age- related involutional changes. White matter hypodensities suggest chronic microvascular ischemic disease. The study is motion degraded. The calvarium is intact. Prior bilateral lens repair. Left parietal scalp contusion. The paranasal sinuses, mastoid air cells, and middle ear cavities are clear. IMPRESSION: 1. No acute intracranial abnormality or calvarial fracture. 2. Left parietal scalp contusion. ACT 112: Negative or not required by law. The above report was generated using voice recognition software. It may contain grammatical, syntax or spelling errors. Electronically signed by: Beto Francis M.D. 02/14/2022 2:[address] 02/14/22 12:[address] WITH CONTRAST; CT ABDOMEN AND PELVIS WITH IV CONTRAST; CT LUMBAR SPINE WITH IV CONTRAST CT DOSE: 3634.04 mGy.cm HISTORY: Acute chest, abdominal and back trauma status post fall Trauma, fall on coumadin TECHNIQUE: Multiaxial CT images of the chest, abdomen and pelvis and lumbar spine were performed following the IV administration of 87 cc of Optiray. A dose lowering technique was utilized adhering to the principles of ALARA. COMPARISON: CT abdomen and pelvis 08/05/2021, chest CT 08/09/2018 FINDINGS: CT CHEST: No thyroid nodule identified. Borderline enlarged subcarinal and right hilar lymph nodes measure up to 9 mm. Moderate to marked cardiomegaly without pericardial effusion. Notably the right heart chambers are enlarged. Moderate to extensive coronary artery calcifications. No thoracic aortic aneurysm or dissection. There is patency of the imaged great vessels. Unremarkable pulmonary artery. Subsegmental bibasilar atelectasis. Intralobular septal thickening with intermixed groundglass opacities. Bronchial wall thickening. No suspicious pulmo nary nodules or masses are identified. Central airways are patent. Minimal age- indeterminate superior endplate compression of the T1, T2 and T3 vertebral bodies of less than 20% without retropulsion. Healing subacute appearing nondisplaced bilateral rib fractures. No acute displaced rib fracture nilesh ntified. CT ABDOMEN/PELVIS: No pneumatosis or pneumoperitoneum. Spleen, pancreas and gallbladder and right adrenal gland appear unremarkable. Unchanged left adrenal gland thickening. Diffusely heterogeneous appearance of the liver with marginal nodularity. No he patic mass identified. Mild nonspecific bilateral perinephric stranding. There are a few subcentimeter bilateral renal hypodensities which are incompletely characterized, possibly small cysts. No hydronephrosis. Unremarkable urinary bladder. Hysterectomy. 3.1 cm left ovarian cyst is unchanged. Atherosclerosis of the aorta without aneurysm. Subcentimeter retroperitoneal lymph nodes are nonspecific. Question gastric wall thickening redemonstrated. No bowel obstruction or bowel wall thickening. Mild fecal retention. Normal appendix. Generalized body wall edema. Degenerative changes of the spine, pelvis and hips. 30% L1 compression deformity is unchanged from prior without retropulsion. Lumbar levoscoliosis. CT LUMBAR SPINE: Chronic L1 compression fracture. Grade 1 anterolisthesis L4 on L5, likely degen erative related. Multilevel intervertebral disc space narrowing, moderate to severe at L2-L3, L3-L4 and L5-S1. No acute fracture or subluxation. Severe multilevel facet arthrosis. Multilevel central canal and neural foraminal narrowing. Central canal stenosis at L4-L5 appears to be severe. The imaged sacrum and iliac bones appear intact. IMPRESSION: 1. No acute extrahepatic intrathoracic, intra-abdominal or intrapelvic abnormality. 2. Cardiomegaly with mild pulmonary edema. 3. Cirrhotic morphology of the liver, possibly secondary to congestive hepatopathy. 4. No acute fracture identified. 5. Additional findings as above. ACT 112: Negative or not required by law. Electronically signed by: Beto Francis M.D. 02/14/2022 3:13 PM Discharge Plan Visit Data Chief Complaint: Fall ED Provider: Rm Feliz Discharge Problem: Odontoid fracture, Venous stasis ulcers of both lower extremities, Fall, Back pain, Skin tear Patient Disposition: Admitted As Inpatient Forms Stand Alone Forms: [facility] Prescriptions Prescriptions: No Action Combivent Respimat 20-100 mcg/actuation mist 1 puffs INH QID simvastatin 20 mg Tablet 20 mg PO HS Lantus Solostar U-100 Insulin 100 unit/mL (3 mL) insulin pen 15 units SUBCUT HS ferrous sulfate [iron] 325 mg (65 mg iron) Tablet 325 mg PO .DAILY IN AFTERNOON fluticasone propion-salmeterol [Wixela Inhub] 250-50 mcg/dose blister with device 1 inh inhalation BID acetaminophen [Tylenol] 325 mg Tablet 650 mg PO Q4 PRN (Reason: Pain (Scale Score 1-3)) acetaminophen 325 mg Tablet 650 mg PO QID MDD 3g PRN (Reason: temp>100) docusate sodium [Colace] 100 mg Capsule 100 mg PO .Q 24HR PRN (Reason: Constipation) Rx Instructions: give on day 2 of no bm in the am metoprolol tartrate 25 mg Tablet 50 mg PO AMHS insulin aspart U-100 [Novolog Flexpen U-100 Insulin] 100 unit/mL (3 mL) Insulin Pen 0 unit SUBCUT AC Rx Instructions: inject as per sliding scale: for BSG 0-100=0units 101-150=3units 151-200=4units 201-250=5units 251-300=6units 301-350=7units 351-400=8units 401-450=9units 451-999= 10units recheck in 1 hour nystatin 100,000 unit/gram Cream 1 applic TOPICAL AMHS Rx Instructions: apply under breasts warfarin [Jantoven] 1 mg Tablet 1 mg PO DAILY@1600 Qty: 30 0RF Mag 64 64 mg Tablet,Delayed Release (Dr/Ec) 128 mg PO DAILY Qty: 120 0RF Rx Instructions: take 128 mg twice a day. famotidine 20 mg Tablet 20 mg PO QAM Qty: 30 0RF Advanced Probiotic 625 mg (10 billion cell) Capsule 2 cap PO DAILY Qty: 60 0RF cholecalciferol (vitamin D3) 125 mcg (5,000 unit) Tablet 5,000 unit PO QAM Qty: 30 0RF Referrals Referrals: [facility] [Non-Staff] -
--- NOTE | 2022-02-14 12:32 | XRay Report ---
XR chest 1V portable HISTORY: 81 years-old Female fall acute chest trauma status post fall COMPARISON: Chest radiograph 08/17/2021 TECHNIQUE: Supine AP view of the chest FINDINGS: Cardiac silhouette is enlarged. Pulmonary vascular congestion without pneumothorax. Trace pleural eff usions with mild bibasilar atelectasis. Degenerative changes of the shoulders and spine. Healing suba cute nondisplaced bilateral rib fractures. Possible calcification projecting over the neck. IMPRESSION: 1. Cardiomegaly with pulmonary vascular congestion. 2. Trace pleural effusions. 3. No pneumothorax. 4. Healing subacute appearing nondisplaced bilateral rib fractures. ACT 112: Negative or not required by law. The above report was generated using voice recognition software. It may contain grammatical, syntax o r spelling errors. Electronically signed by: Beto Francis M.D. 02/14/2022 12:30 PM
--- NOTE | 2022-02-14 12:35 | XRay Report ---
XR hip LT 2V w pelvis HISTORY: 81 years-old Female fall, l hip pain acute pelvic pain status post fall COMPARISON: CT abdomen and pelvis 08/05/2021 TECHNIQUE: AP view of the pelvis with 2 views of the left hip FINDINGS: Mild to moderate right with moderate left hip osteoarthritis. No acute fracture, dislocation or avasc ular necrosis. Arterial calcifications. Moderate fecal retention. IMPRESSION: No acute fracture or dislocation. ACT 112: Negative or not required by law. The above report was generated using voice recognition software. It may contain grammatical, syntax o r spelling errors. Electronically signed by: Beto Francis M.D. 02/14/2022 12:33 PM
[2022-02-14 13:42] LABS: Basophils # (auto) 0.05 K/uL (0-0.2); Basophils % (auto) 0.6 %; Eosinophils # (auto) 0.11 K/uL (0-0.50); Eosinophils % (auto) 1.2 %; Hematocrit (blood only) 33.9 % (34.1-44.9); Hemoglobin 10.3 g/dl (12.0-16.0); Immature Granulocytes # (auto) 0.06 K/uL (0.00-0.02); Immature Granulocytes % (auto) 0.7 %; Lymphocytes # (auto) 0.62 K/uL (1.2-3.4); Lymphocytes % (auto) 6.9 %; Mean Corpuscular Hemoglobin 28.7 pg (25.0-34.0); Mean Corpuscular Hgb Conc 30.4 g/dL (32.0-36.0); Mean Corpuscular Volume 94.4 fL (80.0-100.0); Mean Platelet Volume 11.5 fL (9.4-12.3); Monocytes # (auto) 0.35 K/uL (0.24-0.82); Monocytes % (auto) 3.9 %; Neutrophils # (auto) 7.82 K/uL (1.4-6.5); Neutrophils % (auto) 86.7 %; Platelet Count 154 K/uL (130-400); RDW Coefficient of Variation 15.3 % (11.5-14.5); RDW Standard Deviation 52.9 fL (36.4-46.3); Red Blood Count 3.59 M/uL (3.93-5.22); White Blood Count 9.01 K/ul (4.8-10.8)
[2022-02-14 13:50] LABS: iSTAT Hemoglobin 10.9 g/dl (12.0-16.0); iSTAT Ionized Calcium 1.22 mmol/l (1.12-1.32); iSTAT Potassium 4.7 mmol/L (3.3-5.0)
[2022-02-14 13:54] LABS: INR 1.5 (0.9-1.1); Prothrombin Time 15.4 Seconds (9.0-12.0)
[2022-02-14 14:08] LABS: Alanine Aminotransferase 14 U/L (7-52); Albumin Globulin Ratio 0.9 (0.9-2); Albumin Level 3.4 gm/dl (3.4-5.0); Alkaline Phosphatase 331 U/L (34-104); Anion Gap 5 (3-11); Aspartate Aminotransferase 24 U/L (13-39); BUN Creatinine Ratio 22.7 (10-20); Bilirubin,Total 1.1 mg/dl (0.2-1.0); Blood Urea Nitrogen 22 mg/dl (6-23); Calcium 9.4 mg/dl (8.5-10.1); Carbon Dioxide 32 mmol/L (21-32); Chloride 101 mmol/L (98-107); Creatine Kinase 30 U/L (26-192); Est GFR (African American) 63.9 ml/min; Est GFR (Non-African American) 55.2 ml/min; Globulin 3.9 gm/dl (2.5-4.0); Glucose 310 mg/dl (70-99(Fasting)); Magnesium 1.5 mg/dl (1.7-2.4); Potassium 4.7 mmol/L (3.5-5.1); Sodium 138 mmol/L (136-145); Total Protein 7.3 gm/dl (6.0-8.3)
[2022-02-14] MEDS ORDERED: OPTIRAY 350 100ml IV ONE (14:13)
[2022-02-14 14:30] LABS: Troponin I High Sensitivity 12.7 pg/ml (0-14)
--- NOTE | 2022-02-14 14:48 | CT Scan Report ---
CT head/brain wo con CLINICAL HISTORY: 81 years-old Female with Trauma, fall on coumadin. Acute head and neck trauma stat us post fall TECHNIQUE: Multiple axial CT images of the head were obtained without contrast. A dose lowering tech nique was utilized adhering to the principles of ALARA. COMPARISON: CT cervical spine of same day. FINDINGS: No acute intracranial hemorrhage, midline shift, intracranial mass, hydrocephalus, territorial ischem ia or abnormal extra-axial collection. Age-related involutional changes. White matter hypodensities s uggest chronic microvascular ischemic disease. The study is motion degraded. The calvarium is intact. Prior bilateral lens repair. Left parietal scalp contusion. The paranasal si nuses, mastoid air cells, and middle ear cavities are clear. IMPRESSION: 1. No acute intracranial abnormality or calvarial fracture. 2. Left parietal scalp contusion. ACT 112: Negative or not required by law. The above report was generated using voice recognition software. It may contain grammatical, syntax o r spelling errors. Electronically signed by: Beto Francis M.D. 02/14/2022 2:46 PM
--- NOTE | 2022-02-14 14:57 | CT Scan Report ---
CT cervical spine wo con CLINICAL HISTORY: 81 years-old Female with Trauma, fall on coumadin. Acute head and neck injury stat us post fall COMPARISON: CT head of same day, CT cervical spine 07/19/2021 TECHNIQUE: Multiple axial CT images of the cervical spine were obtained without contrast. A dose low ering technique was utilized adhering to the principles of ALARA. FINDINGS: Moderate to severe facet arthrosis with associated intervertebral disc space narrowing and spondylitic spurring with chondrocalcinosis of the disc spaces. There is an acute comminuted fracture involving the C2 vertebral body which involves the odontoid process base and lateral masses (type II I). 4 mm and volar displacement of the superior most fracture component. Fracture extends into the ri ght C2 pedicle and right vertebral foramen. Severe degeneration of the C1-C2 articulation. No additio nal acute fracture or subluxation identified. The cervical soft tissues appear unremarkable. Intralobular septal thickening of the lung apices may represent pulmonary edema. No pneumothorax. Trace prevertebral edema at the level C1-C2. IMPRESSION: Acute comminuted fracture of C2 with a type III odontoid fracture. Fracture extends into the right pedicle and vertebral foramen. Correlation with CTA of the neck recommended to exclude an acute vertebral artery injury. ACT 112: Negative or not required by law. The above report was generated using voice recognition software. It may contain grammatical, syntax o r spelling errors. Electronically signed by: Beto Francis M.D. 02/14/2022 2:54 PM
--- NOTE | 2022-02-14 15:15 | CT Scan Report ---
CHEST CT WITH CONTRAST; CT ABDOMEN AND PELVIS WITH IV CONTRAST; CT LUMBAR SPINE WITH IV CONTRAST CT DOSE: 3634.04 mGy.cm HISTORY: Acute chest, abdominal and back trauma status post fall Trauma, fall on coumadin TECHNIQUE: Multiaxial CT images of the chest, abdomen and pelvis and lumbar spine were performed foll owing the IV administration of 87 cc of Optiray. A dose lowering technique was utilized adhering to the principles of ALARA. COMPARISON: CT abdomen and pelvis 08/05/2021, chest CT 08/09/2018 FINDINGS: CT CHEST: No thyroid nodule identified. Borderline enlarged subcarinal and right hilar lymph nodes measure up t o 9 mm. Moderate to marked cardiomegaly without pericardial effusion. Notably the right heart chamber s are enlarged. Moderate to extensive coronary artery calcifications. No thoracic aortic aneurysm or dissection. There is patency of the imaged great vessels. Unremarkable pulmonary artery. Subsegmental bibasilar atelectasis. Intralobular septal thickening with intermixed groundglass opacit ies. Bronchial wall thickening. No suspicious pulmonary nodules or masses are identified. Central air ways are patent. Minimal age-indeterminate superior endplate compression of the T1, T2 and T3 vertebr al bodies of less than 20% without retropulsion. Healing subacute appearing nondisplaced bilateral ri b fractures. No acute displaced rib fracture identified. CT ABDOMEN/PELVIS: No pneumatosis or pneumoperitoneum. Spleen, pancreas and gallbladder and right adrenal gland appear u nremarkable. Unchanged left adrenal gland thickening. Diffusely heterogeneous appearance of the liver with marginal nodularity. No hepatic mass identified. Mild nonspecific bilateral perinephric stranding. There are a few subcentimeter bilateral renal hypod ensities which are incompletely characterized, possibly small cysts. No hydronephrosis. Unremarkable urinary bladder. Hysterectomy. 3.1 cm left ovarian cyst is unchanged. Atherosclerosis of the aorta wi thout aneurysm. Subcentimeter retroperitoneal lymph nodes are nonspecific. Question gastric wall thickening redemonstrated. No bowel obstruction or bowel wall thickening. Mild fecal retention. Normal appendix. Generalized body wall edema. Degenerative changes of the spine, pel vis and hips. 30% L1 compression deformity is unchanged from prior without retropulsion. Lumbar levos coliosis. CT LUMBAR SPINE: Chronic L1 compression fracture. Grade 1 anterolisthesis L4 on L5, likely degenerative related. Multi level intervertebral disc space narrowing, moderate to severe at L2-L3, L3-L4 and L5-S1. No acute fra cture or subluxation. Severe multilevel facet arthrosis. Multilevel central canal and neural foramina l narrowing. Central canal stenosis at L4-L5 appears to be severe. The imaged sacrum and iliac bones appear intact. IMPRESSION: 1. No acute extrahepatic intrathoracic, intra-abdominal or intrapelvic abnormality. 2. Cardiomegaly with mild pulmonary edema. 3. Cirrhotic morphology of the liver, possibly secondary to congestive hepatopathy. 4. No acute fracture identified. 5. Additional findings as above. ACT 112: Negative or not required by law. Electronically signed by: Beto Francis M.D. 02/14/2022 3:13 PM
[2022-02-14] MEDS ORDERED: ALUMINUM/MAGNESIUM SUSP 30 ML UDC PO PRN (17:03)
[2022-02-14] MEDS ORDERED: POLYETHYLENE (MIRALAX) 17 GM PACK PO PRN (17:03)
--- NOTE | 2022-02-14 17:12 | History & Physical Report ---
Date of Service February 14, 2022 Assessment & Plan (1) Odontoid fracture: Plan Mechanical fall Cervical spine fracture Patient came in with fall [see HPI] Admitting imagings: CXR with cardiomegaly with pulmonary vascular congestion, healing subacute appearing nondisplaced bilateral rib fractures. Hip/pelvis x-ray/CT AP/CT chest/lumbar spine CT with no acute findings. Head CT with no acute intracranial finding, left parietal scalp contusion noted. Cervical spine CT: Acute comminuted fracture of C2 with a type II odontoid fracture. Recommend CTA neck to exclude the acute vertebral artery injury. Patient denies radicular extremity pain, reports pain at back of neck and low back. Emergency contacted Dr. Jean, recommendations are neck immobilization with cervical collar and maintain subtherapeutic INR. Admitting INR of 1.5. Full liquid diet, aspiration precaution, maintain cervical collar, pain management, nausea control, n.p.o. midnight for orthospine evaluation in AM. Electrolytes abnormality: Monitor and replete History of recurrent cellulitis: Superficial crusted wound with BLE swelling, wound care consult, continue to monitor. Other chronic medical conditions: CKD stage III, chronic A. fib, DM type II, diastolic CHF, COPD -->> Coumadin on hold to maintain subtherapeutic INR until orthospine evaluation, resume home meds as and when appropriate. DVT prophylaxis: SCDs Full code History of Present Illness Chief Complaint: fall Primary Care Provider: Jimi Sanchez, DO 80 yo F with PMHx of A. fib on coumadin, diastolic CHF, tachy-job syndrome, DM type II, CKD stage III, COPD on 4 L oxygen as needed and at bedtime, HLD presented to the ED 02/14 after fall. Patient was taking her dog out for a walk on a leash and suddenly the dog pulled her down the steps and she fell on her back on the ground. She did not have any lightheadedness or dizziness or loss of consciousness surrounding the event. Patient reports pain in her neck and lower back. Patient has sustained superficial laceration on her right forearm. Patient does have a history of recurrent lower extremity cellulitis, currently appears not infected but lower extremity with crusted superficial wound and edema noted at exam. Patient denies headache or dizziness or chest pain or sore throat or fever or belly pain or acute changes in her bowel or bladder habits lately. Patient denies radicular extremity pain. Patient denies use of tobacco smoke/alcohol/recreational drugs. Full code POA is patient's brother Asif Daniel Allergies Allergy/AdvReac Type Severity Reaction Status Date / Time metformin Allergy Severe EDEMA FACE Verified 02/14/22 13:04 AND HANDS, ITCHY ciprofloxacin Allergy Intermediate RASH Verified 02/14/22 13:04 clindamycin Allergy Intermediate RASH Verified 02/14/22 13:04 pollen extracts Allergy Mild RUNNY NOSE Verified 02/14/22 13:04 Cephalosporins Allergy Unknown Unknown Verified 02/14/22 13:04 montelukast [From Singulair] Allergy Unknown CAN'T Verified 02/14/22 13:04 REMEMBER Penicillins Allergy Unknown CAN'T Verified 02/14/22 13:04 REMEMBER Sulfa (Sulfonamide Allergy Unknown CAN'T Verified 02/14/22 13:04 Antibiotics) REMEMBER Home Medications Medication Instructions Recorded Confirmed Type simvastatin 20 mg tablet 20 mg PO HS 05/08/18 02/14/22 History ferrous sulfate 325 mg (65 mg 325 mg PO .DAILY IN AFTERNOON 07/30/18 02/14/22 History iron) tablet (iron) insulin glargine 100 unit/mL (3 15 units subcut HS 10/03/18 02/14/22 History mL) subcutaneous pen (Lantus Solostar U-100 Insulin) ipratropium 20 mcg-albuterol 100 1 puffs inhalation QID 10/03/18 02/14/22 History mcg/actuation mist for inhalation (Combivent Respimat) fluticasone 250 mcg-salmeterol 50 1 inh inhalation BID 03/28/19 02/14/22 History mcg/dose blistr powdr for inhalation (Wixela Inhub) acetaminophen 325 mg tablet 650 mg PO Q4 PRN Pain (Scale Score 06/02/21 02/14/22 History (Tylenol) 1-3) acetaminophen 325 mg tablet 650 mg PO QID PRN temp>100 08/06/21 02/14/22 History docusate sodium 100 mg capsule 100 mg PO .Q 24HR PRN Constipation 08/06/21 02/14/22 History (Colace) insulin aspart U-100 100 unit/mL 0 unit subcut AC 08/06/21 02/14/22 History (3 mL) subcutaneous pen (Novolog Flexpen U-100 Insulin aspart) metoprolol tartrate 25 mg tablet 50 mg PO AMHS 08/06/21 02/14/22 History nystatin 100,000 unit/gram topical 1 applic topical AMHS 08/06/21 02/14/22 History cream L.acidop,casei,lactis,rham-B.lact,shawna 2 cap PO DAILY #60 caps 08/19/21 02/14/22 Rx 625 mg (10 billion cell) capsule (Advanced Probiotic) cholecalciferol (vitamin D3) 125 5,000 unit PO QAM #30 tabs 08/19/21 02/14/22 Rx mcg (5,000 unit) tablet famotidine 20 mg tablet 20 mg PO QAM #30 tabs 08/19/21 02/14/22 Rx magnesium chloride 64 mg 128 mg PO DAILY #120 tabs 08/19/21 02/14/22 Rx (magnesium chloride) tablet,delayed release (Mag 64) warfarin 1 mg tablet (Jantoven) 1 mg PO DAILY@1600 #30 tabs 08/19/21 02/14/22 Rx Past Med/Surg History Medical History A-fib Cellulitis CKD (chronic kidney disease) stage 3, GFR 30-59 ml/min COPD (chronic obstructive pulmonary disease) Diastolic CHF DM type 2 (diabetes mellitus, type 2) Dyslipidemia Hypomagnesemia Hypoxemic respiratory failure, chronic Nocturnal hypoxemia Obesity hypoventilation syndrome Osteoarthritis Pacemaker infection s/p removal Sepsis Staphylococcus aureus bacteremia Tachycardia-bradycardia syndrome Type 2 diabetes mellitus Surgical History History of cataract surgery History of hysterectomy History of total left knee replacement S/P adenoidectomy Family History Mother Diabetes Heart disease Social History Smoking Status: Former smoker Tobacco Type: Cigarettes Second Hand Exposure: Yes; Hx Alcohol Use: No Hx Substance Use: No Preferred Language: Uzbek Communication Ability: Effective Visual Impairment: No Limitations Hearing Ability: Normal Engineering Technician Required: No Beliefs That Will Affect Care: None marital status: Single Current Living Situation: Alone Current Living Situation Comment: Lives alone, son + granddaughter live nearby current occupational status: retired How many Children do You have: 1 Feels Safe at Home: Yes Assistive Devices: Walker Review of Systems Review of Systems: Negative otherwise mentioned in HPI. Physical Exam Physical Exam: GENERAL: Alert and oriented x3. NAD, on 4 L nasal cannula oxygen. HEENT: No pallor, no icterus. Pupils equal, round and reactive to light. Oral mucosa moist. Cervical collar in situ/neck immobilized. NECK: No JVD, no neck masses. HEART: S1 and S2 heard. irregular rate and rhythm. No murmur, no gallop. RESPIRATORY SYSTEM: Normal AP diameter. No accessory muscle use. No wheezing, rales positive. ABDOMEN: Soft, bowel sounds present, nontender, no distention. CENTRAL NERVOUS SYSTEM: No facial droop. Speech is clear. Obeys simple commands. Moves extremities. EXTREMITIES: 2+ BLE edema, crusted superficial wound, does not look to be in cellulitis. Right forearm with superficial laceration. Results & Data Results & Data ([facility]) Vital Signs (Past 12 Hours) Vital Signs Temp Pulse Resp BP Pulse Ox O2 Del Method O2 Flow Rate 02/14/22 14:00 86 27 H 96 02/14/22 14:00 179/104 H 02/14/22 13:50 80 26 H 98 02/14/22 13:40 77 25 H 98 02/14/22 13:30 81 23 97 02/14/22 13:30 166/95 H 02/14/22 13:20 83 27 H 96 02/14/22 13:10 89 27 H 99 02/14/22 13:06 82 26 H 100 02/14/22 13:06 181/93 H 02/14/22 13:00 84 29 H 99 02/14/22 12:50 84 25 H 100 02/14/22 12:40 83 25 H 100 02/14/22 12:30 74 31 H 98 02/14/22 12:20 73 32 H 90 02/14/22 12:14 77 35 H 94 02/14/22 12:10 36.8 C 86 18 181/93 H 98 Nasal Cannula 4
[2022-02-14] MEDS: MAGNESIUM SULFATE / D5W 1 GM/100 ML BAG IV SCH ×2 (17:16→21:51)
[2022-02-14] MEDS ORDERED: MoRPHine SULFATE 2 MG/ML CARP IV PRN (17:33)
[2022-02-14] MEDS ORDERED: OPTIRAY 300 500mL IV ONE (17:48)
[2022-02-14] MEDS: ONDANSETRON INJ 2 MG/ML 2 ML VIAL IV PRN (17:58)
--- NOTE | 2022-02-14 18:13 | CT Scan Report ---
CT angio neck with con CLINICAL HISTORY: 81 years-old Female with recs from CT neck, r/o vertebral artery injury. Follow- up study in a patient with possible spine fracture COMPARISON STUDY: CT cervical spine of same day TECHNIQUE: Following the IV administration of 114 mL of Optiray, CT angiogram of the neck was perform ed from the aortic arch to the skull base. Images are reviewed in the axial, sagittal, and coronal pl anes. 3-D MIPS images are created and assessed. IV contrast was administered without complication. Al l measurements were calculated based on NASCET criteria. A dose lowering technique was utilized adhe ring to the principles of ALARA. CT DOSE: 499.07 mGy.cm FINDINGS: Moderate to severe facet arthrosis with associated intervertebral disc space narrowing and spondyliti c spurring with chondrocalcinosis of the disc spaces. There is an acute comminuted fracture involving the C2 vertebral body which involves the odontoid process base and lateral masses (type III). 4 mm a nd volar displacement of the superior most fracture component. Fracture extends into the right C2 ped icle and right vertebral foramen. Severe degeneration of the C1-C2 articulation. No additional acute fracture or subluxation identified. The cervical soft tissues appear unremarkable. Intralobular septa l thickening of the lung apices may represent pulmonary edema. No pneumothorax. Trace prevertebral ed byron at the level C1-C2.. The study is motion degraded. Atherosclerosis of the thoracic aortic arch. Patency of the innominate and imaged subclavian arteries. The common carotid arteries are widely patent. Atherosclerosis of the carotid bulbs and proximal cervical segments of the internal carotid arteries results in less than 5 0% stenosis. The dominant left vertebral artery is patent. There is only trickle flow noted within th e right T1 and T2 segments of the right vertebral artery. The V3 and V4 segments are patent and appea r unremarkable. Minimal superior endplate compression involving a few of the upper thoracic segments again noted. Cortical angulation of the sternal manubrium with mild angulation. IMPRESSION: 1. Limited study secondary to motion artifact. 2. The right vertebral artery is likely developmentally diminutive. There is multifocal diminished fl ow present within the V1 and V2 segments which is an age-indeterminate finding suggestive of multifoc al high-grade stenoses. Luminal narrowing secondary to an acute dissection could appear similarly. Th ere is no obvious focal injury of the vertebral artery at the level of C2. 3. Unchanged appearance of the acute C2 fracture described on the CT cervical spine study of same day . 4. Cortical buckling of the sternal manubrium redemonstrated. Correlate with point tenderness to excl ude an additional acute fracture. ACT 112: Negative or not required by law. The above report was generated using voice recognition software. It may contain grammatical, syntax o r spelling errors. Electronically signed by: Beto Francis M.D. 02/14/2022 6:10 PM
[2022-02-14] MEDS: Ipratropium HFA Inhaler (Combivent Respimat P&T Subs) INH SCH (20:20)
[2022-02-14] MEDS: Albuterol HFA 8 GM Inhaler (Combivent Respimat P&T Subs) INH SCH (20:20)
[2022-02-14] MEDS ORDERED: IPRATROPIUM BROMIDE/ALBUTEROL respimat INH INH SCH (21:00)
[2022-02-14] MEDS: PANTOprazole 40 MG TAB PO SCH (21:35)
[2022-02-14] MEDS: SIMVASTATIN 20 MG TAB PO SCH (21:35)
[2022-02-14] MEDS: METOPROLOL TARTRATE 50 MG TAB PO SCH (21:35)
[2022-02-14] MEDS: ACETAMINOPHEN 325 MG TAB PO PRN (21:51)
--- NOTE | 2022-02-14 23:21 | Electrocardiogram Report ---
Test Reason : Blood Pressure : / mmHG Vent. Rate : 082 BPM Atrial Rate : 258 BPM P-R Int : 000 ms QRS Dur : 092 ms QT Int : 402 ms P-R-T Axes : 000 -63 -55 degrees QTc Int : 469 ms Atrial fibrillation with a competing junctional pacemaker Left axis deviation Nonspecific ST and T wave abnormality Abnormal ECG When compared with ECG of 07-AUG-2021 05:30, No significant change was found Confirmed by Cristhian Hagen ([id number]) on 02/14/2022 11:20:56 PM Referred By: Confirmed By:Cristhian Hagen
[2022-02-15 06:28] LABS: Appearance Urine Clear (Clear); Bacteria Urine Automated Negative (Negative); Bilirubin Urine Negative (Negative); Blood Urine Negative (Negative); Color Urine Yellow; Epithelial Cell Urine Auto >30 /lpf (0-5); Glucose Urine UA 2+ (Negative); Ketones Urine Negative (Negative); Leukocyte Esterase Urine Negative (Negative); Nitrite Urine Negative (Negative); Protein Urine 1+ (Negative); RBC Urine Automated 0-4 /hpf (0-4); Specific Gravity Urine > 1.045 (1.000-1.030); Urobilinogen Urine Negative (Negative); pH Urine 5.5 (4.5-7.5)
[2022-02-15 07:06] LABS: Hematocrit (blood only) 34.1 % (34.1-44.9); Hemoglobin 10.3 g/dl (12.0-16.0); Mean Corpuscular Hemoglobin 28.1 pg (25.0-34.0); Mean Corpuscular Hgb Conc 30.2 g/dL (32.0-36.0); Mean Corpuscular Volume 92.9 fL (80.0-100.0); Mean Platelet Volume 11.3 fL (9.4-12.3); Platelet Count 162 K/uL (130-400); RDW Coefficient of Variation 15.4 % (11.5-14.5); RDW Standard Deviation 52.6 fL (36.4-46.3); Red Blood Count 3.67 M/uL (3.93-5.22); White Blood Count 8.87 K/ul (4.8-10.8)
[2022-02-15] MEDS: Ipratropium HFA Inhaler (Combivent Respimat P&T Subs) INH SCH ×4 (07:25→20:06)
[2022-02-15] MEDS: Albuterol HFA 8 GM Inhaler (Combivent Respimat P&T Subs) INH SCH ×4 (07:25→20:06)
[2022-02-15] MEDS: MAGNESIUM CHLORIDE W/CALCIUM 64MG DELAYED REL TAB PO SCH (07:27)
[2022-02-15 07:28] LABS: Calcium 9.4 mg/dl (8.5-10.1); Magnesium 1.9 mg/dl (1.7-2.4); Potassium 4.7 mmol/L (3.5-5.1)
[2022-02-15] MEDS: ADVANCED PROBIOTIC 1250 MG CAPSULE PO SCH (07:28)
[2022-02-15] MEDS: SPIRONOLACTONE 25 MG TAB PO SCH (07:28)
[2022-02-15] MEDS: CHOLECALCIFEROL 5,000 UNITS 125 MCG TAB PO SCH (07:28)
[2022-02-15] MEDS: METOPROLOL TARTRATE 50 MG TAB PO SCH ×2 (07:29→20:28)
[2022-02-15] MEDS: FUROSEMIDE 40 MG TAB PO SCH (07:29)
[2022-02-15] MEDS: FAMOTIDINE 20 MG TAB PO SCH (07:30)
[2022-02-15] MEDS: FLUTICASONE/VILANTEROL 200/25MCG 14 PUFFS/INHALER INH SCH (07:30)
[2022-02-15 07:33] LABS: INR 1.4 (0.9-1.1); Prothrombin Time 14.6 Seconds (9.0-12.0)
[2022-02-15 07:34] LABS: BUN Creatinine Ratio 22.2 (10-20); Creatinine Clr Calc Pharmacy 51.2 ml/min; Est GFR (African American) 62.4 ml/min; Est GFR (Non-African American) 53.8 ml/min; Phosphorus 3.5 mg/dl (2.5-4.9)
--- NOTE | 2022-02-15 10:17 | History & Physical Report ---
Date of Service February 15, 2022 Assessment & Plan (1) Odontoid fracture: Plan: Assessment type III odontoid fracture plan at this time we will transition her to a [place] J collar. This much more comfortable. Once this is placed she can begin transfers from bed to chair ambulation with therapy. She would be a candidate for rehab versus SNF. Anticipate her requiring surgery for this injury. I have advanced her diet today. Admission and Anticipated Discharge Date Admission Date: February 14, 2022 History of Present Illness Chief Complaint: Cervical spine fracture Primary Care Provider: Jimi Sanchez Is a very pleasant 81-year-old female who presents after a fall at home. She was diagnosed with a type III odontoid fracture. This morning she states her pain is controlled. She denies any numbness or tingling or strength deficits to the upper or lower extremities. Allergies Allergy/AdvReac Type Severity Reaction Status Date / Time metformin Allergy Severe EDEMA FACE Verified 02/14/22 13:04 AND HANDS, ITCHY ciprofloxacin Allergy Intermediate RASH Verified 02/14/22 13:04 clindamycin Allergy Intermediate RASH Verified 02/14/22 13:04 pollen extracts Allergy Mild RUNNY NOSE Verified 02/14/22 13:04 Cephalosporins Allergy Unknown Unknown Verified 02/14/22 13:04 montelukast [From Singulair] Allergy Unknown CAN'T Verified 02/14/22 13:04 REMEMBER Penicillins Allergy Unknown CAN'T Verified 02/14/22 13:04 REMEMBER Sulfa (Sulfonamide Allergy Unknown CAN'T Verified 02/14/22 13:04 Antibiotics) REMEMBER Home Medications Medication Instructions Recorded Confirmed Type simvastatin 20 mg tablet 20 mg PO HS 05/08/18 02/14/22 History ferrous sulfate 325 mg (65 mg 325 mg PO .DAILY IN AFTERNOON 07/30/18 02/14/22 History iron) tablet (iron) insulin glargine 100 unit/mL (3 15 units subcut HS 10/03/18 02/14/22 History mL) subcutaneous pen (Lantus Solostar U-100 Insulin) ipratropium 20 mcg-albuterol 100 1 puffs inhalation QID 10/03/18 02/14/22 History mcg/actuation mist for inhalation (Combivent Respimat) fluticasone 250 mcg-salmeterol 50 1 inh inhalation BID 03/28/19 02/14/22 History mcg/dose blistr powdr for inhalation (Wixela Inhub) acetaminophen 325 mg tablet 650 mg PO Q4 PRN Pain (Scale Score 06/02/21 02/14/22 History (Tylenol) 1-3) acetaminophen 325 mg tablet 650 mg PO QID PRN temp>100 08/06/21 02/14/22 History docusate sodium 100 mg capsule 100 mg PO .Q 24HR PRN Constipation 08/06/21 02/14/22 History (Colace) insulin aspart U-100 100 unit/mL 0 unit subcut AC 08/06/21 02/14/22 History (3 mL) subcutaneous pen (Novolog Flexpen U-100 Insulin aspart) metoprolol tartrate 25 mg tablet 50 mg PO AMHS 08/06/21 02/14/22 History nystatin 100,000 unit/gram topical 1 applic topical AMHS 08/06/21 02/14/22 History cream L.acidop,casei,lactis,rham-B.lact,shawna 2 cap PO DAILY #60 caps 08/19/21 02/14/22 Rx 625 mg (10 billion cell) capsule (Advanced Probiotic) cholecalciferol (vitamin D3) 125 5,000 unit PO QAM #30 tabs 08/19/21 02/14/22 Rx mcg (5,000 unit) tablet famotidine 20 mg tablet 20 mg PO QAM #30 tabs 08/19/21 02/14/22 Rx magnesium chloride 64 mg 128 mg PO DAILY #120 tabs 08/19/21 02/14/22 Rx (magnesium chloride) tablet,delayed release (Mag 64) warfarin 1 mg tablet (Jantoven) 1 mg PO DAILY@1600 #30 tabs 08/19/21 02/14/22 Rx Past Med/Surg History Medical History A-fib Cellulitis CKD (chronic kidney disease) stage 3, GFR 30-59 ml/min COPD (chronic obstructive pulmonary disease) Diastolic CHF DM type 2 (diabetes mellitus, type 2) Dyslipidemia Hypomagnesemia Hypoxemic respiratory failure, chronic Nocturnal hypoxemia Obesity hypoventilation syndrome Osteoarthritis Pacemaker infection s/p removal Sepsis Staphylococcus aureus bacteremia Tachycardia-bradycardia syndrome Type 2 diabetes mellitus Surgical History History of cataract surgery History of hysterectomy History of total left knee replacement S/P adenoidectomy Family History Mother Diabetes Heart disease Social History Smoking Status: Former smoker Tobacco Type: Cigarettes Second Hand Exposure: Yes; Hx Alcohol Use: No Hx Substance Use: No Preferred Language: [place]an Communication Ability: Effective Visual Impairment: No Limitations Hearing Ability: Normal Cafeteria Clerk Required: No Beliefs That Will Affect Care: None marital status: Single Current Living Situation: Alone Current Living Situation Comment: mobile home current occupational status: retired How many Children do You have: 1 Feels Safe at Home: Yes Safety Concerns: Feels Safe At This Time Assistive Devices: Denture - Upper, Denture - Lower, Glasses, Nebulizer, Oxygen - Continuous, Scooter/Electric Scooter and Walker Physical Exam Physical Exam: On exam she is good strength testing upper lower extremities. Sensory symmetric and intact. She is currently in a rigid collar. Results & Data Results & Data ([facility]) Vital Signs (Past 12 Hours) Vital Signs Temp Pulse Pulse Resp BP BP Pulse Ox 02/15/22 07:25 70 18 100 02/15/22 07:48 35.9 C L 90 20 164/87 H 94 02/15/22 07:11 76 02/14/22 23:04 36.5 C 78 20 176/93 H 100 O2 Del Method O2 Flow Rate 02/15/22 07:25 Nasal Cannula 4 02/15/22 07:48 Nasal Cannula 2 02/15/22 07:11 02/14/22 23:04 Nasal Cannula 4
[2022-02-15] MEDS: ONDANSETRON INJ 2 MG/ML 2 ML VIAL IV PRN (11:48)
[2022-02-15] MEDS: FERROUS SULFATE 325 MG TAB PO SCH (11:48)
[2022-02-15] MEDS: oxyCODONE HCL IR 5 MG TAB (IMMEDIATE RELEASE) PO PRN (11:48)
[2022-02-15] MEDS ORDERED: DEXTROSE 50% 50 ML SYRINGE IV PRN (15:15)
[2022-02-15] MEDS ORDERED: GLUCAGON FOR INJ 1 MG VIAL IM PRN (15:15)
[2022-02-15] MEDS ORDERED: CARBOHYDRATES FOR HYPOGLYCEMIA PO PRN (15:15)
[2022-02-15] MEDS ORDERED: GLUCOSE 40% GEL 15 GM TUBE PO PRN (15:15)
[2022-02-15] MEDS ORDERED: GLUCOSE 10 TAB/TUBE PO PRN (15:15)
--- NOTE | 2022-02-15 15:27 | Hospitalist Progress Note ---
Date of Service February 15, 2022 Assessment & Plan (1) Odontoid fracture: Plan Mechanical fall Cervical spine fracture Patient came in with fall [see HPI 02/14] Admitting imagings: CXR with cardiomegaly with pulmonary vascular congestion, healing subacute appearing nondisplaced bilateral rib fractures. Hip/pelvis x-ray/CT AP/CT chest/lumbar spine CT with no acute findings. Head CT with no acute intracranial finding, left parietal scalp contusion not ed. Cervical spine CT: Acute comminuted fracture of C2 with a type II odontoid fracture. Recommend CTA neck to exclude the acute vertebral artery injury. Neck CTA: There is no obvious focal injury of the vertebral artery at the level of C2. Patient denies radicular extremity pain, reports pain at back of neck and low back which is getting better, no extremity weakness noted. Discussed with Juan Mckeon, patient can transfer from bed to chair with therapy, anticipates her requiring surgery for this injury. Advance diet as tolerated, aspiration precaution, maintain cervical collar, pain management, nausea control, consider resuming Coumadin if no plan for surgery this admission. BLE edema: On the background of CHF, noncompliance with fluid intake r estriction, states that she drinks a lot of fluid, will maintain fluid restriction of 1.8 L, continue home diuretics. BLE swelling improving. Electrolytes abnormality: Monitor and replete History of recurrent cellulitis: Superficial crusted wound with BLE swelling, wound care consult, continue to monitor. Other chronic medical conditions: CKD stage III, chronic A. fib, DM type II, diastolic CHF, COPD on 2L O2-->> Coumadin on hold to maintain subtherapeutic INR for possible surgery this admission, resume home meds as and when appropriate. DVT prophylaxis: SCDs Full code Admission and Anticipated Discharge Date Admission Date: February 14, 2022 Subjective Patient seen and examined at bedside for follow-up of mechanical fall and C- spine fracture [odontoid fracture] and electrolyte abnormality. Patient was lying in bed, cervical collar in place, NAD, reports improvement in her neck pain, denies nausea or vomiting, denies headache or dizziness, patient was n.p.o., discussed with orthospine, no plan for surgery, will advance diet. Patient denies sore throat or cough or chest pain or belly pain or other review of symptoms. Physical Exam Physical Exam: GENERAL: Alert and oriented x3. NAD, on 2 L nasal cannula oxygen. HEENT: No pallor, no icterus. Pupils equal, round and reactive to light. Oral mucosa moist. Cervical collar in situ/neck immobilized. NECK: No JVD, no neck masses. HEART: S1 and S2 heard. irregular rate and rhythm. No murmur, no gallop. RESPIRATORY SYSTEM: Normal AP diameter. No accessory muscle use. No wheezing, rales positive. ABDOMEN: Soft, bowel sounds present, nontender, no distention. CENTRAL NERVOUS SYSTEM: No facial droop. Speech is clear. Obeys simple commands. Moves extremities. EXTREMITIES: 1+ BLE edema, crusted superficial wound, does not look to be in cellulitis. Chronic venous stasis changes BLE. Right forearm with superficial laceration. Results & Data Results & Data ([facility]) Vital Signs (Past 12 Hours) Vital Signs Temp Pulse Pulse Resp BP Pulse Ox O2 Del Method 02/15/22 11:30 36.5 C 101 H 20 152/72 H 92 Nasal Cannula 02/15/22 07:25 70 18 100 Nasal Cannula 02/15/22 07:48 35.9 C L 90 20 164/87 H 94 Nasal Cannula 02/15/22 07:11 76 O2 Flow Rate 02/15/22 11:30 2 02/15/22 07:25 4 02/15/22 07:48 2 02/15/22 07:11
[2022-02-15] MEDS: INSULIN ASPART PER UNIT SC SCH ×2 (17:43→20:27)
[2022-02-15] MEDS: LANTUS PER UNIT CHARGE SQ SCH (20:27)
[2022-02-15] MEDS: SIMVASTATIN 20 MG TAB PO SCH (20:28)
[2022-02-15] MEDS: PANTOprazole 40 MG TAB PO SCH (20:28)
[2022-02-16 06:27] LABS: Hematocrit (blood only) 34.4 % (34.1-44.9); Hemoglobin 10.7 g/dl (12.0-16.0); Mean Corpuscular Hemoglobin 28.7 pg (25.0-34.0); Mean Corpuscular Hgb Conc 31.1 g/dL (32.0-36.0); Mean Corpuscular Volume 92.2 fL (80.0-100.0); Mean Platelet Volume 11.4 fL (9.4-12.3); Platelet Count 163 K/uL (130-400); RDW Coefficient of Variation 15.1 % (11.5-14.5); RDW Standard Deviation 51.4 fL (36.4-46.3); Red Blood Count 3.73 M/uL (3.93-5.22); White Blood Count 10.38 K/ul (4.8-10.8)
[2022-02-16 06:35] LABS: INR 1.5 (0.9-1.1); Prothrombin Time 15.4 Seconds (9.0-12.0)
[2022-02-16] MEDS: Albuterol HFA 8 GM Inhaler (Combivent Respimat P&T Subs) INH SCH ×4 (07:26→20:04)
[2022-02-16] MEDS: Ipratropium HFA Inhaler (Combivent Respimat P&T Subs) INH SCH ×4 (07:27→20:04)
[2022-02-16 07:43] LABS: BUN Creatinine Ratio 21.8 (10-20); Calcium 9.5 mg/dl (8.5-10.1); Est GFR (African American) 60.9 ml/min; Est GFR (Non-African American) 52.5 ml/min; Magnesium 1.5 mg/dl (1.7-2.4); Potassium 4.1 mmol/L (3.5-5.1)
[2022-02-16] MEDS: SPIRONOLACTONE 25 MG TAB PO SCH (08:11)
[2022-02-16] MEDS: MAGNESIUM CHLORIDE W/CALCIUM 64MG DELAYED REL TAB PO SCH (08:11)
[2022-02-16] MEDS: FLUTICASONE/VILANTEROL 200/25MCG 14 PUFFS/INHALER INH SCH (08:11)
[2022-02-16] MEDS: METOPROLOL TARTRATE 50 MG TAB PO SCH ×2 (08:11→20:15)
[2022-02-16] MEDS: CHOLECALCIFEROL 5,000 UNITS 125 MCG TAB PO SCH (08:12)
[2022-02-16] MEDS: FAMOTIDINE 20 MG TAB PO SCH (08:12)
[2022-02-16] MEDS: INSULIN ASPART PER UNIT SC SCH ×4 (08:12→22:03)
[2022-02-16] MEDS: ADVANCED PROBIOTIC 1250 MG CAPSULE PO SCH (08:12)
[2022-02-16] MEDS: FUROSEMIDE 40 MG TAB PO SCH (08:12)
--- NOTE | 2022-02-16 11:34 | Orthopedic Progress Note ---
Date of Service February 16, 2022 Assessment & Plan (1) Odontoid fracture: Plan: Assessment type III odontoid fracture plan at this time would like to clarify my last note. It was meant to read she will most likely not require surgical intervention. She is to maintain the collar at all times other than bathing. Admission and Anticipated Discharge Date Admission Date: February 14, 2022 Subjective Patient states her neck pain is controlled. She denies any symptoms involving upper or lower extremities. Physical Exam Physical Exam: On exam the [place] J collar is in place. She is good strength testing the upper and lower extremities. Results & Data ([facility]) Vital Signs (Past 12 Hours) Vital Signs Temp Pulse Resp BP BP Pulse Ox O2 Del Method 02/16/22 11:30 36.4 C L 75 16 138/77 96 Nasal Cannula 02/16/22 10:55 78 18 95 Nasal Cannula 02/16/22 09:00 Nasal Cannula 02/16/22 08:19 36.6 C 84 16 162/85 H 97 Nasal Cannula 02/16/22 07:28 86 18 90 Nasal Cannula 02/16/22 03:40 36.5 C 73 20 158/88 H 92 Nasal Cannula O2 Flow Rate 02/16/22 11:30 2 02/16/22 10:55 2 02/16/22 09:00 2 02/16/22 08:19 4 02/16/22 07:28 3 02/16/22 03:40 2
--- NOTE | 2022-02-16 12:20 | Hospitalist Progress Note ---
Date of Service February 16, 2022 Assessment & Plan (1) Odontoid fracture: Plan Mechanical fall Cervical spine fracture Patient came in with fall [see HPI 02/14] Admitting imagings: CXR with cardiomegaly with pulmonary vascular congestion, healing subacute appearing nondisplaced bilateral rib fractures. Hip/pelvis x-ray/CT AP/CT chest/lumbar spine CT with no acute findings. Head CT with no acute intracranial finding, left parietal scalp contusion not ed. Cervical spine CT: Acute comminuted fracture of C2 with a type II odontoid fracture. Recommend CTA neck to exclude the acute vertebral artery injury. Neck CTA: There is no obvious focal injury of the vertebral artery at the level of C2. Patient denies radicular extremity pain, reports pain at back of neck and low back which is getting better, no extremity weakness noted. Spine orthopedics recommend no surgical intervention and to maintain collar at all times other than bathing. We will resume her Coumadin as no surgical intervention is planned. Advance diet as tolerated, aspiration precaution, maintain cervical collar, pain management, nausea control, BLE edema: On the background of CHF, noncompliance with fluid intake restriction, states that she drinks a lot of fluid, will maintain fluid restriction of 1.8 L, continue home diuretics. BLE swelling improving. Electrolytes abnormality: Monitor and replete History of recurrent cellulitis: Superficial crusted wound with BLE swelling, wound care consult, continue to monitor. Other chronic medical conditions: CKD stage III, chronic A. fib, DM type II, diastolic CHF, COPD on 2L O2-->> continue home medications. DVT prophylaxis: SCDs Full code Admission and Anticipated Discharge Date Admission Date: February 14, 2022 Subjective Patient seen and examined at bedside. She was lying on the bed flat; not in any distress. She says she continues to have pain on movement. Review of Systems Review of Systems: All systems reviewed & are unremarkable except as noted in Subjective Physical Exam Physical Exam: GENERAL: Alert and oriented x3. NAD, on 2 L nasal cannula oxygen. HEENT: No pallor, no icterus. Pupils equal, round and reactive to light. Oral mucosa moist. Cervical collar in situ. NECK: No JVD, no neck masses. HEART: S1 and S2 heard. irregular rate and rhythm. No murmur, no gallop. RESPIRATORY SYSTEM: Normal AP diameter. No accessory muscle use. No wheezing, rales positive. ABDOMEN: Soft, bowel sounds present, nontender, no distention. CENTRAL NERVOUS SYSTEM: No facial droop. Speech is clear. Obeys simple commands. Moves extremities. EXTREMITIES: 1+ BLE edema, crusted superficial wound, does not look to be in cellulitis. Chronic venous stasis changes BLE. Right forearm with superficial laceration. Results & Data Results & Data ([facility]) Vital Signs (Past 12 Hours) Vital Signs Temp Pulse Resp BP BP Pulse Ox O2 Del Method 02/16/22 11:30 36.4 C L 75 16 138/77 96 Nasal Cannula 02/16/22 10:55 78 18 95 Nasal Cannula 02/16/22 09:00 Nasal Cannula 02/16/22 08:19 36.6 C 84 16 162/85 H 97 Nasal Cannula 02/16/22 07:28 86 18 90 Nasal Cannula 02/16/22 03:40 36.5 C 73 20 158/88 H 92 Nasal Cannula O2 Flow Rate 02/16/22 11:30 2 02/16/22 10:55 2 02/16/22 09:00 2 02/16/22 08:19 4 02/16/22 07:28 3 02/16/22 03:40 2 Laboratory Results Laboratory Results WBC 10.38 K/ul (4.8-10.8) 02/16/22 05:56 RBC 3.73 M/uL (3.93-5.22) L 02/16/22 05:56 Hgb 10.7 g/dl (12.0-16.0) L 02/16/22 05:56 POC Hgb 10.9 g/dl (12.0-16.0) L 02/14/22 13:32 Hct 34.4 % (34.1-44.9) 02/16/22 05:56 POC Hct 32 % (37-47) L 02/14/22 13:32 MCV 92.2 fL (80.0-100.0) 02/16/22 05:56 MCH 28.7 pg (25.0-34.0) 02/16/22 05:56 MCHC 31.1 g/dL (32.0-36.0) L 02/16/22 05:56 RDW Std Deviation 51.4 fL (36.4-46.3) H 02/16/22 05:56 RDW Coeff of Silvana 15.1 % (11.5-14.5) H 02/16/22 05:56 Plt Count 163 K/uL (130-400) 02/16/22 05:56 MPV 11.4 fL (9.4-12.3) 02/16/22 05:56 Immature Gran % (Auto) 0.7 % 02/14/22 13:29 Neut % (Auto) 86.7 % 02/14/22 13:29 Lymph % (Auto) 6.9 % 02/14/22 13:29 Lawrence % (Auto) 3.9 % 02/14/22 13:29 Eos % (Auto) 1.2 % 02/14/22 13:29 Baso % (Auto) 0.6 % 02/14/22 13:29 Neut # (Auto) 7.82 K/uL (1.4-6.5) H 02/14/22 13:29 Lymph # (Auto) 0.62 K/uL (1.2-3.4) L 02/14/22 13:29 Lawrence # (Auto) 0.35 K/uL (0.24-0.82) 02/14/22 13:29 Eos # (Auto) 0.11 K/uL (0-0.50) 02/14/22 13:29 Baso # (Auto) 0.05 K/uL (0-0.2) 02/14/22 13:29 Immature Gran # (Auto) 0.06 K/uL (0.00-0.02) H 02/14/22 13:29 PT 15.4 Seconds (9.0-12.0) H 02/16/22 05:56 INR 1.5 (0.9-1.1) H 02/16/22 05:56 POC Sodium 141 mmol/L (135-144) 02/14/22 13:32 Sodium 139 mmol/L (136-145) 02/16/22 05:56 POC Potassium 4.7 mmol/L (3.3-5.0) 02/14/22 13:32 Potassium 4.1 mmol/L (3.5-5.1) 02/16/22 05:56 POC Chloride 100 mmol/L (101-112) L 02/14/22 13:32 Chloride 97 mmol/L (98-107) L 02/16/22 05:56 Carbon Dioxide 37 mmol/L (21-32) H 02/16/22 05:56 POC Total CO2 30 mmol/L (24-31) 02/14/22 13:32 Anion Gap 5 (3-11) 02/16/22 05:56 POC Anion Gap 16.0 mmol/L (16-25) 02/14/22 13:32 POC BUN 22 mg/dl (7-18) H 02/14/22 13:32 BUN 22 mg/dl (6-23) 02/16/22 05:56 Creatinine 1.01 mg/dl (0.6-1.2) 02/16/22 05:56 POC Creatinine 1.0 mg/dl (0.6-1.3) 02/14/22 13:32 Est Cr Clr Drug Dosing 49.0 ml/min 02/16/22 05:56 Est GFR ( Amer) 60.9 ml/min 02/16/22 05:56 Est GFR (Non-Af Amer) 52.5 ml/min 02/16/22 05:56 BUN/Creatinine Ratio 21.8 (10-20) H 02/16/22 05:56 Glucose 163 mg/dl (70-99(Fasting)) H 02/16/22 05:56 POC Glucose 175 mg/dl (70-99) H 02/16/22 11:48 POC Glucose (other) 330 mg/dl (70-99) H 02/14/22 13:32 Calcium 9.5 mg/dl (8.5-10.1) 02/16/22 05:56 POC Ioniz Calcium Sammie 1.22 mmol/l (1.12-1.32) 02/14/22 13:32 Phosphorus 3.5 mg/dl (2.5-4.9) 02/15/22 06:45 Magnesium 1.5 mg/dl (1.7-2.4) L 02/16/22 05:56 Total Bilirubin 1.1 mg/dl (0.2-1.0) H 02/14/22 13:29 AST 24 U/L (13-39) 02/14/22 13:29 ALT 14 U/L (7-52) 02/14/22 13:29 Alkaline Phosphatase 331 U/L (34-104) H 02/14/22 13:29 Total Creatine Kinase 30 U/L (26-192) 02/14/22 13:29 Troponin I High Sens 12.7 pg/ml (0-14) 02/14/22 13:29 Total Protein 7.3 gm/dl (6.0-8.3) 02/14/22 13:29 Albumin 3.4 gm/dl (3.4-5.0) 02/14/22 13:29 Globulin 3.9 gm/dl (2.5-4.0) 02/14/22 13:29 Albumin/Globulin Ratio 0.9 (0.9-2) 02/14/22 13:29 Urine Color Yellow 02/15/22 05:00 Urine Appearance Clear (Clear) 02/15/22 05:00 Urine pH 5.5 (4.5-7.5) 02/15/22 05:00 Ur Specific Quail > 1.045 (1.000-1.030) H 02/15/22 05:00 Urine Protein 1+ (Negative) H 02/15/22 05:00 Urine Glucose (UA) 2+ (Negative) H 02/15/22 05:00 Urine Ketones Negative (Negative) 02/15/22 05:00 Urine Blood Negative (Negative) 02/15/22 05:00 Urine Nitrite Negative (Negative) 02/15/22 05:00 Urine Bilirubin Negative (Negative) 02/15/22 05:00 Urine Urobilinogen Negative (Negative) 02/15/22 05:00 Ur Leukocyte Esterase Negative (Negative) 02/15/22 05:00 Urine WBC (Auto) 1-5 /hpf (0-5) 02/15/22 05:00 Urine RBC (Auto) 0-4 /hpf (0-4) 02/15/22 05:00 U Hyaline Cast (Auto) 1-5 /lpf (0-5) 02/15/22 05:00 U Epithel Cells (Auto) >30 /lpf (0-5) H 02/15/22 05:00 Urine Bacteria (Auto) Negative (Negative) 02/15/22 05:00 SARS-CoV-2, RNA, NAAT NEGATIVE (NEGATIVE) 02/14/22 15:45 Impressions Chest X-Ray 02/14/22 12:09 XR chest 1V portable HISTORY: 81 years-old Female fall acute chest trauma status post fall COMPARISON: Chest radiograph 08/17/2021 TECHNIQUE: Supine AP view of the chest FINDINGS: Cardiac silhouette is enlarged. Pulmonary vascular congestion without pneumothorax. Trace pleural effusions with mild bibasilar atelectasis. Degenerative changes of the shoulders and spine. Healing subacute nondisplaced bilateral rib fractures. Possible calcification projecting over the neck. IMPRESSION: 1. Cardiomegaly with pulmonary vascular congestion. 2. Trace pleural effusions. 3. No pneumothorax. 4. Healing subacute appearing nondisplaced bilateral rib fractures. ACT 112: Negative or not required by law. The above report was generated using voice recognition software. It may contain grammatical, syntax or spelling errors. Electronically signed by: Beto Francis M.D. 02/14/2022 12:30 PM Hip/Pelvis X-Ray 02/14/22 12:09 XR hip LT 2V w pelvis HISTORY: 81 years-old Female fall, l hip pain acute pelvic pain status post fall COMPARISON: CT abdomen and pelvis 08/05/2021 TECHNIQUE: AP view of the pelvis with 2 views of the left hip FINDINGS: Mild to moderate right with moderate left hip osteoarthritis. No acute fracture, dislocation or avascular necrosis. Arterial calcifications. Moderate fecal retention. IMPRESSION: No acute fracture or dislocation. ACT 112: Negative or not required by law. The above report was generated using voice recognition software. It may contain grammatical, syntax or spelling errors. Electronically signed by: Beto Francis M.D. 02/14/2022 12:33 PM Abdomen/Pelvis CT 02/14/22 12:[address] WITH CONTRAST; CT ABDOMEN AND PELVIS WITH IV CONTRAST; CT LUMBAR SPINE WITH IV CONTRAST CT DOSE: 3634.04 mGy.cm HISTORY: Acute chest, abdominal and back trauma status post fall Trauma, fall on coumadin TECHNIQUE: Multiaxial CT images of the chest, abdomen and pelvis and lumbar spine were performed following the IV administration of 87 cc of Optiray. A dose lowering technique was utilized adhering to the principles of ALARA. COMPARISON: CT abdomen and pelvis 08/05/2021, chest CT 08/09/2018 FINDINGS: CT CHEST: No thyroid nodule identified. Borderline enlarged subcarinal and right hilar lymph nodes measure up to 9 mm. Moderate to marked cardiomegaly without pericardial effusion. Notably the right heart chambers are enlarged. Moderate to extensive coronary artery calcifications. No thoracic aortic aneurysm or dissection. There is patency of the imaged great vessels. Unremarkable pulmonary artery. Subsegmental bibasilar atelectasis. Intralobular septal thickening with intermixed groundglass opacities. Bronchial wall thickening. No suspicious pulmonary nodules or masses are identified. Central airways are patent. Minimal age-indeterminate superior endplate compression of the T1, T2 and T3 vertebral bodies of less than 20% without retropulsion. Healing subacute appearing nondisplaced bilateral rib fractures. No acute displaced rib fracture identified. CT ABDOMEN/PELVIS: No pneumatosis or pneumoperitoneum. Spleen, pancreas and gallbladder and right adrenal gland appear unremarkable. Unchanged left adrenal gland thickening. Diffusely heterogeneous appearance of the liver with marginal nodularity. No hepatic mass identified. Mild nonspecific bilateral perinephric stranding. There are a few subcentimeter bilateral renal hypodensities which are incompletely characterized, possibly small cysts. No hydronephrosis. Unremarkable urinary bladder. Hysterectomy. 3.1 cm left ovarian cyst is unchanged. Atherosclerosis of the aorta without aneurysm. Subcentimeter retroperitoneal lymph nodes are nonspecific. Question gastric wall thickening redemonstrated. No bowel obstruction or bowel wall thickening. Mild fecal retention. Normal appendix. Generalized body wall edema. Degenerative changes of the spine, pelvis and hips. 30% L1 compression deformity is unchanged from prior without retropulsion. Lumbar levoscoliosis. CT LUMBAR SPINE: Chronic L1 compression fracture. Grade 1 anterolisthesis L4 on L5, likely degenerative related. Multilevel intervertebral disc space narrowing, moderate to severe at L2-L3, L3-L4 and L5-S1. No acute fracture or subluxation. Severe multilevel facet arthrosis. Multilevel central canal and neural foraminal narrowing. Central canal stenosis at L4-L5 appears to be severe. The imaged sacrum and iliac bones appear intact. IMPRESSION: 1. No acute extrahepatic intrathoracic, intra-abdominal or intrapelvic abnormality. 2. Cardiomegaly with mild pulmonary edema. 3. Cirrhotic morphology of the liver, possibly secondary to congestive hepatopathy. 4. No acute fracture identified. 5. Additional findings as above. ACT 112: Negative or not required by law. Electronically signed by: Beto Francis M.D. 02/14/2022 3:[address] 02/14/22 12:10 CT cervical spine wo con CLINICAL HISTORY: 81 years-old Female with Trauma, fall on coumadin. Acute head and neck injury status post fall COMPARISON: CT head of same day, CT cervical spine 07/19/2021 TECHNIQUE: Multiple axial CT images of the cervical spine were obtained without contrast. A dose lowering technique was utilized adhering to the principles of ALARA. FINDINGS: Moderate to severe facet arthrosis with associated intervertebral disc space narrowing and spondylitic spurring with chondrocalcinosis of the disc spaces. There is an acute comminuted fracture involving the C2 vertebral body which involves the odontoid process base and lateral masses (type III). 4 mm and volar displacement of the superior most fracture component. Fracture extends into the right C2 pedicle and right vertebral foramen. Severe degeneration of the C1-C2 articulation. No additional acute fracture or subluxation identified. The cervical soft tissues appear unremarkable. Intralobular septal thickening of the lung apices may represent pulmonary edema. No pneumothorax. Trace prevertebral edema at the level C1-C2. IMPRESSION: Acute comminuted fracture of C2 with a type III odontoid fracture. Fracture extends into the right pedicle and vertebral foramen. Correlation with CTA of the neck recommended to exclude an acute vertebral artery injury. ACT 112: Negative or not required by law. The above report was generated using voice recognition software. It may contain grammatical, syntax or spelling errors. Electronically signed by: Beto Francis M.D. 02/14/2022 2:[address] 02/14/22 12:[address] WITH CONTRAST; CT ABDOMEN AND PELVIS WITH IV CONTRAST; CT LUMBAR SPINE WITH IV CONTRAST CT DOSE: 3634.04 mGy.cm HISTORY: Acute chest, abdominal and back trauma status post fall Trauma, fall on coumadin TECHNIQUE: Multiaxial CT images of the chest, abdomen and pelvis and lumbar spine were performed following the IV administration of 87 cc of Optiray. A dose lowering technique was utilized adhering to the principles of ALARA. COMPARISON: CT abdomen and pelvis 08/05/2021, chest CT 08/09/2018 FINDINGS: CT CHEST: No thyroid nodule identified. Borderline enlarged subcarinal and right hilar lymph nodes measure up to 9 mm. Moderate to marked cardiomegaly without pericardial effusion. Notably the right heart chambers are enlarged. Moderate to extensive coronary artery calcifications. No thoracic aortic aneurysm or dissection. There is patency of the imaged great vessels. Unremarkable pulmonary artery. Subsegmental bibasilar atelectasis. Intralobular septal thickening with intermixed groundglass opacities. Bronchial wall thickening. No suspicious pulmonary nodules or masses are identified. Central airways are patent. Minimal age-indeterminate superior endplate compression of the T1, T2 and T3 vertebral bodies of less than 20% without retropulsion. Healing subacute appearing nondisplaced bilateral rib fractures. No acute displaced rib fracture identified. CT ABDOMEN/PELVIS: No pneumatosis or pneumoperitoneum. Spleen, pancreas and gallbladder and right adrenal gland appear unremarkable. Unchanged left adrenal gland thickening. Diffusely heterogeneous appearance of the liver with marginal nodularity. No hepatic mass identified. Mild nonspecific bilateral perinephric stranding. There are a few subcentimeter bilateral renal hypodensities which are incompletely characterized, possibly small cysts. No hydronephrosis. Unremarkable urinary bladder. Hysterectomy. 3.1 cm left ovarian cyst is unchanged. Atherosclerosis of the aorta without aneurysm. Subcentimeter retroperitoneal lymph nodes are nonspecific. Question gastric wall thickening redemonstrated. No bowel obstruction or bowel wall thickening. Mild fecal retention. Normal appendix. Generalized body wall edema. Degenerative changes of the spine, pelvis and hips. 30% L1 compression deformity is unchanged from prior without retropulsion. Lumbar levoscoliosis. CT LUMBAR SPINE: Chronic L1 compression fracture. Grade 1 anterolisthesis L4 on L5, likely degenerative related. Multilevel intervertebral disc space narrowing, moderate to severe at L2-L3, L3-L4 and L5-S1. No acute fracture or subluxation. Severe multilevel facet arthrosis. Multilevel central canal and neural foraminal narrowing. Central canal stenosis at L4-L5 appears to be severe. The imaged sacrum and iliac bones appear intact. IMPRESSION: 1. No acute extrahepatic intrathoracic, intra-abdominal or intrapelvic abnormality. 2. Cardiomegaly with mild pulmonary edema. 3. Cirrhotic morphology of the liver, possibly secondary to congestive hepatopathy. 4. No acute fracture identified. 5. Additional findings as above. ACT 112: Negative or not required by law. Electronically signed by: Beto Francis M.D. 02/14/2022 3:[address] 02/14/22 12:10 CT head/brain wo con CLINICAL HISTORY: 81 years-old Female with Trauma, fall on coumadin. Acute head and neck trauma status post fall TECHNIQUE: Multiple axial CT images of the head were obtained without contrast. A dose lowering technique was utilized adhering to the principles of ALARA. COMPARISON: CT cervical spine of same day. FINDINGS: No acute intracranial hemorrhage, midline shift, intracranial mass, hydrocephalus, territorial ischemia or abnormal extra-axial collection. Age- related involutional changes. White matter hypodensities suggest chronic microvascular ischemic disease. The study is motion degraded. The calvarium is intact. Prior bilateral lens repair. Left parietal scalp contusion. The paranasal sinuses, mastoid air cells, and middle ear cavities are clear. IMPRESSION: 1. No acute intracranial abnormality or calvarial fracture. 2. Left parietal scalp contusion. ACT 112: Negative or not required by law. The above report was generated using voice recognition software. It may contain grammatical, syntax or spelling errors. Electronically signed by: Beto Francis M.D. 02/14/2022 2:[address] 02/14/22 12:[address] WITH CONTRAST; CT ABDOMEN AND PELVIS WITH IV CONTRAST; CT LUMBAR SPINE WITH IV CONTRAST CT DOSE: 3634.04 mGy.cm HISTORY: Acute chest, abdominal and back trauma status post fall Trauma, fall on coumadin TECHNIQUE: Multiaxial CT images of the chest, abdomen and pelvis and lumbar spine were performed following the IV administration of 87 cc of Optiray. A dose lowering technique was utilized adhering to the principles of ALARA. COMPARISON: CT abdomen and pelvis 08/05/2021, chest CT 08/09/2018 FINDINGS: CT CHEST: No thyroid nodule identified. Borderline enlarged subcarinal and right hilar lymph nodes measure up to 9 mm. Moderate to marked cardiomegaly without pericardial effusion. Notably the right heart chambers are enlarged. Moderate to extensive coronary artery calcifications. No thoracic aortic aneurysm or dissection. There is patency of the imaged great vessels. Unremarkable pulmonary artery. Subsegmental bibasilar atelectasis. Intralobular septal thickening with intermixed groundglass opacities. Bronchial wall thickening. No suspicious pulmonary nodules or masses are identified. Central airways are patent. Minimal age-indeterminate superior endplate compression of the T1, T2 and T3 vertebral bodies of less than 20% without retropulsion. Healing subacute appearing nondisplaced bilateral rib fractures. No acute displaced rib fracture identified. CT ABDOMEN/PELVIS: No pneumatosis or pneumoperitoneum. Spleen, pancreas and gallbladder and right adrenal gland appear unremarkable. Unchanged left adrenal gland thickening. Diffusely heterogeneous appearance of the liver with marginal nodularity. No hepatic mass identified. Mild nonspecific bilateral perinephric stranding. There are a few subcentimeter bilateral renal hypodensities which are incompletely characterized, possibly small cysts. No hydronephrosis. Unremarkable urinary bladder. Hysterectomy. 3.1 cm left ovarian cyst is unchanged. Atherosclerosis of the aorta without aneurysm. Subcentimeter retroperitoneal lymph nodes are nonspecific. Question gastric wall thickening redemonstrated. No bowel obstruction or bowel wall thickening. Mild fecal retention. Normal appendix. Generalized body wall edema. Degenerative changes of the spine, pelvis and hips. 30% L1 compression deformity is unchanged from prior without retropulsion. Lumbar levoscoliosis. CT LUMBAR SPINE: Chronic L1 compression fracture. Grade 1 anterolisthesis L4 on L5, likely degenerative related. Multilevel intervertebral disc space narrowing, moderate to severe at L2-L3, L3-L4 and L5-S1. No acute fracture or subluxation. Severe multilevel facet arthrosis. Multilevel central canal and neural foraminal narrowing. Central canal stenosis at L4-L5 appears to be severe. The imaged sacrum and iliac bones appear intact. IMPRESSION: 1. No acute extrahepatic intrathoracic, intra-abdominal or intrapelvic abnormality. 2. Cardiomegaly with mild pulmonary edema. 3. Cirrhotic morphology of the liver, possibly secondary to congestive hepatopathy. 4. No acute fracture identified. 5. Additional findings as above. ACT 112: Negative or not required by law. Electronically signed by: Beto Francis M.D. 02/14/2022 3:13 PM Neck CTA 02/14/22 17:26 CT angio neck with con CLINICAL HISTORY: 81 years-old Female with recs from CT neck, r/o vertebral artery injury. Follow-up study in a patient with possible spine fracture COMPARISON STUDY: CT cervical spine of same day TECHNIQUE: Following the IV administration of 114 mL of Optiray, CT angiogram of the neck was performed from the aortic arch to the skull base. Images are reviewed in the axial, sagittal, and coronal planes. 3-D MIPS images are created and assessed. IV contrast was administered without complication. All measurements were calculated based on NASCET criteria. A dose lowering technique was utilized adhering to the principles of ALARA. CT DOSE: 499.07 mGy.cm FINDINGS: Moderate to severe facet arthrosis with associated intervertebral disc space narrowing and spondylitic spurring with chondrocalcinosis of the disc spaces. There is an acute comminuted fracture involving the C2 vertebral body which involves the odontoid process base and lateral masses (type III). 4 mm and volar displacement of the superior most fracture component. Fracture extends into the right C2 pedicle and right vertebral foramen. Severe degeneration of the C1-C2 articulation. No additional acute fracture or subluxation identified. The cervical soft tissues appear unremarkable. Intralobular septal thickening of the lung apices may represent pulmonary edema. No pneumothorax. Trace prevertebral edema at the level C1-C2.. The study is motion degraded. Atherosclerosis of the thoracic aortic arch. Patency of the innominate and imaged subclavian arteries. The common carotid arteries are widely patent. Atherosclerosis of the carotid bulbs and proximal cervical segments of the internal carotid arteries results in less than 50% stenosis. The dominant left vertebral artery is patent. There is only trickle flow noted within the right T1 and T2 segments of the right vertebral artery. The V3 and V4 segments are patent and appear unremarkable. Minimal superior endplate compression involving a few of the upper thoracic segments again noted. Cortical angulation of the sternal manubrium with mild angulation. IMPRESSION: 1. Limited study secondary to motion artifact. 2. The right vertebral artery is likely developmentally diminutive. There is multifocal diminished flow present within the V1 and V2 segments which is an age-indeterminate finding suggestive of multifocal high-grade stenoses. Luminal narrowing secondary to an acute dissection could appear similarly. There is no obvious focal injury of the vertebral artery at the level of C2. 3. Unchanged appearance of the acute C2 fracture described on the CT cervical spine study of same day. 4. Cortical buckling of the sternal manubrium redemonstrated. Correlate with point tenderness to exclude an additional acute fracture. ACT 112: Negative or not required by law. The above report was generated using voice recognition software. It may contain grammatical, syntax or spelling errors. Electronically signed by: Beto Francis M.D. 02/14/2022 6:10 PM
[2022-02-16] MEDS: FERROUS SULFATE 325 MG TAB PO SCH (12:27)
[2022-02-16] MEDS: MICONAZOLE NITRATE POWDER 43 GM EXT SCH ×2 (13:57→20:16)
[2022-02-16] MEDS: WARFARIN SOD 1 MG TAB PO SCH (16:23)
[2022-02-16] MEDS: SIMVASTATIN 20 MG TAB PO SCH (20:15)
[2022-02-16] MEDS: PANTOprazole 40 MG TAB PO SCH (20:15)
[2022-02-16] MEDS: LANTUS PER UNIT CHARGE SQ SCH (22:03)
[2022-02-17 06:50] LABS: Basophils # (auto) 0.04 K/uL (0-0.2); Basophils % (auto) 0.4 %; Eosinophils # (auto) 0.17 K/uL (0-0.50); Eosinophils % (auto) 1.8 %; Hematocrit (blood only) 36.4 % (34.1-44.9); Hemoglobin 11.4 g/dl (12.0-16.0); Immature Granulocytes # (auto) 0.08 K/uL (0.00-0.02); Immature Granulocytes % (auto) 0.8 %; Lymphocytes # (auto) 0.84 K/uL (1.2-3.4); Lymphocytes % (auto) 8.8 %; Mean Corpuscular Hemoglobin 28.3 pg (25.0-34.0); Mean Corpuscular Hgb Conc 31.3 g/dL (32.0-36.0); Mean Corpuscular Volume 90.3 fL (80.0-100.0); Mean Platelet Volume 10.4 fL (9.4-12.3); Monocytes # (auto) 0.65 K/uL (0.24-0.82); Monocytes % (auto) 6.8 %; Neutrophils # (auto) 7.73 K/uL (1.4-6.5); Neutrophils % (auto) 81.4 %; Platelet Count 172 K/uL (130-400); Red Blood Count 4.03 M/uL (3.93-5.22); White Blood Count 9.51 K/ul (4.8-10.8)
[2022-02-17 06:59] LABS: INR 1.5 (0.9-1.1); Prothrombin Time 15.9 Seconds (9.0-12.0)
[2022-02-17] MEDS: Ipratropium HFA Inhaler (Combivent Respimat P&T Subs) INH SCH ×4 (07:19→20:17)
[2022-02-17] MEDS: Albuterol HFA 8 GM Inhaler (Combivent Respimat P&T Subs) INH SCH ×4 (07:20→20:17)
[2022-02-17 07:33] LABS: BUN Creatinine Ratio 24.3 (10-20); Calcium 9.6 mg/dl (8.5-10.1); Creatinine Clr Calc Pharmacy 47.2 ml/min; Est GFR (African American) 59.5 ml/min; Est GFR (Non-African American) 51.3 ml/min; Potassium 3.7 mmol/L (3.5-5.1)
[2022-02-17] MEDS: ADVANCED PROBIOTIC 1250 MG CAPSULE PO SCH (08:46)
[2022-02-17] MEDS: FUROSEMIDE 40 MG TAB PO SCH (08:46)
[2022-02-17] MEDS: MAGNESIUM CHLORIDE W/CALCIUM 64MG DELAYED REL TAB PO SCH (08:47)
[2022-02-17] MEDS: FAMOTIDINE 20 MG TAB PO SCH (08:47)
[2022-02-17] MEDS: CHOLECALCIFEROL 5,000 UNITS 125 MCG TAB PO SCH (08:47)
[2022-02-17] MEDS: SPIRONOLACTONE 25 MG TAB PO SCH (08:47)
[2022-02-17] MEDS: METOPROLOL TARTRATE 50 MG TAB PO SCH ×2 (08:47→20:43)
[2022-02-17] MEDS: FLUTICASONE/VILANTEROL 200/25MCG 14 PUFFS/INHALER INH SCH (08:53)
[2022-02-17] MEDS: MICONAZOLE NITRATE POWDER 43 GM EXT SCH ×3 (08:53→20:44)
[2022-02-17] MEDS: INSULIN ASPART PER UNIT SC SCH ×4 (09:29→20:45)
[2022-02-17] MEDS: oxyCODONE HCL IR 5 MG TAB (IMMEDIATE RELEASE) PO PRN (11:06)
--- NOTE | 2022-02-17 12:25 | Hospitalist Progress Note ---
Date of Service February 17, 2022 Assessment & Plan (1) Odontoid fracture: Plan Mechanical fall Cervical spine fracture Patient came in with fall [see HPI 02/14] Admitting imagings: CXR with cardiomegaly with pulmonary vascular congestion, healing subacute appearing nondisplaced bilateral rib fractures. Hip/pelvis x-ray/CT AP/CT chest/lumbar spine CT with no acute findings. Head CT with no acute intracranial finding, left parietal scalp contusion not ed. Cervical spine CT: Acute comminuted fracture of C2 with a type II odontoid fracture. Recommend CTA neck to exclude the acute vertebral artery injury. Neck CTA: There is no obvious focal injury of the vertebral artery at the level of C2. Patient denies radicular extremity pain, reports pain at back of neck and low back which is getting better, no extremity weakness noted. Spine orthopedics recommend no surgical intervention and to maintain collar at all times other than bathing. Couamdin resumed as no surgical intervention is planned. Advance diet as tolerated, aspiration precaution, maintain cervical collar, pain management, nausea control, BLE edema: Good urinary output. bicarb uptrending. Hold off Lasix. Electrolytes abnormality: Monitor and replete History of recurrent cellulitis: Superficial crusted wound with BLE swelling, wound care consult, continue to monitor. Other chronic medical conditions: CKD stage III, chronic A. fib, DM type II, diastolic CHF, COPD on 2L O2-->> continue home medications. DVT prophylaxis: SCDs Full code Admission and Anticipated Discharge Date Admission Date: February 14, 2022 Subjective Patient seen and examined at bedside. She is lying in the bed comfortably. Pain is well controlled on current regimen. Review of Systems Review of Systems: All systems reviewed & are unremarkable except as noted in Subjective Physical Exam Physical Exam: GENERAL: Alert and oriented x3. NAD, on 2 L nasal cannula oxygen. HEENT: No pallor, no icterus. Pupils equal, round and reactive to light. Oral mucosa moist. Cervical collar in situ. NECK: No JVD, no neck masses. HEART: S1 and S2 heard. irregular rate and rhythm. No murmur, no gallop. RESPIRATORY SYSTEM: Normal AP diameter. No accessory muscle use. No wheezing, rales positive. ABDOMEN: Soft, bowel sounds present, nontender, no distention. CENTRAL NERVOUS SYSTEM: No facial droop. Speech is clear. Obeys simple commands. Moves extremities. EXTREMITIES: 1+ BLE edema, crusted superficial wound, does not look to be in cellulitis. Chronic venous stasis changes BLE. Right forearm with superficial laceration. Results & Data Results & Data ([facility]) Vital Signs (Past 12 Hours) Vital Signs Temp Pulse Resp BP BP Pulse Ox O2 Del Method 02/17/22 10:42 71 18 96 Nasal Cannula 02/17/22 07:35 Nasal Cannula 02/17/22 07:32 36.5 C 88 18 149/78 H 93 Nasal Cannula 02/17/22 07:20 68 18 93 Nasal Cannula 02/17/22 03:21 36.6 C 85 18 158/78 H 91 Nasal Cannula O2 Flow Rate 02/17/22 10:42 2 02/17/22 07:35 2 02/17/22 07:32 2 02/17/22 07:20 2 02/17/22 03:21 2 Laboratory Results Laboratory Results WBC 9.51 K/ul (4.8-10.8) 02/17/22 06:20 RBC 4.03 M/uL (3.93-5.22) 02/17/22 06:20 Hgb 11.4 g/dl (12.0-16.0) L 02/17/22 06:20 POC Hgb 10.9 g/dl (12.0-16.0) L 02/14/22 13:32 Hct 36.4 % (34.1-44.9) 02/17/22 06:20 POC Hct 32 % (37-47) L 02/14/22 13:32 MCV 90.3 fL (80.0-100.0) 02/17/22 06:20 MCH 28.3 pg (25.0-34.0) 02/17/22 06:20 MCHC 31.3 g/dL (32.0-36.0) L 02/17/22 06:20 RDW Std Deviation 50.0 fL (36.4-46.3) H 02/17/22 06:20 RDW Coeff of Silvana 15.0 % (11.5-14.5) H 02/17/22 06:20 Plt Count 172 K/uL (130-400) 02/17/22 06:20 MPV 10.4 fL (9.4-12.3) 02/17/22 06:20 Immature Gran % (Auto) 0.8 % 02/17/22 06:20 Neut % (Auto) 81.4 % 02/17/22 06:20 Lymph % (Auto) 8.8 % 02/17/22 06:20 [place] % (Auto) 6.8 % 02/17/22 06:20 Eos % (Auto) 1.8 % 02/17/22 06:20 Baso % (Auto) 0.4 % 02/17/22 06:20 Neut # (Auto) 7.73 K/uL (1.4-6.5) H 02/17/22 06:20 Lymph # (Auto) 0.84 K/uL (1.2-3.4) L 02/17/22 06:20 [place] # (Auto) 0.65 K/uL (0.24-0.82) 02/17/22 06:20 Eos # (Auto) 0.17 K/uL (0-0.50) 02/17/22 06:20 Baso # (Auto) 0.04 K/uL (0-0.2) 02/17/22 06:20 Immature Gran # (Auto) 0.08 K/uL (0.00-0.02) H 02/17/22 06:20 PT 15.9 Seconds (9.0-12.0) H 02/17/22 06:20 INR 1.5 (0.9-1.1) H 02/17/22 06:20 POC Sodium 141 mmol/L (135-144) 02/14/22 13:32 Sodium 140 mmol/L (136-145) 02/17/22 06:20 POC Potassium 4.7 mmol/L (3.3-5.0) 02/14/22 13:32 Potassium 3.7 mmol/L (3.5-5.1) 02/17/22 06:20 POC Chloride 100 mmol/L (101-112) L 02/14/22 13:32 Chloride 94 mmol/L (98-107) L 02/17/22 06:20 Carbon Dioxide 42 mmol/L (21-32) H* 02/17/22 06:20 POC Total CO2 30 mmol/L (24-31) 02/14/22 13:32 Anion Gap 4 (3-11) 02/17/22 06:20 POC Anion Gap 16.0 mmol/L (16-25) 02/14/22 13:32 POC BUN 22 mg/dl (7-18) H 02/14/22 13:32 BUN 25 mg/dl (6-23) H 02/17/22 06:20 Creatinine 1.03 mg/dl (0.6-1.2) 02/17/22 06:20 POC Creatinine 1.0 mg/dl (0.6-1.3) 02/14/22 13:32 Est Cr Clr Drug Dosing 47.2 ml/min 02/17/22 06:20 Est GFR ( Amer) 59.5 ml/min 02/17/22 06:20 Est GFR (Non-Af Amer) 51.3 ml/min 02/17/22 06:20 BUN/Creatinine Ratio 24.3 (10-20) H 02/17/22 06:20 Glucose 119 mg/dl (70-99(Fasting)) H 02/17/22 06:20 POC Glucose 166 mg/dl (70-99) H 02/17/22 11:38 POC Glucose (other) 330 mg/dl (70-99) H 02/14/22 13:32 Calcium 9.6 mg/dl (8.5-10.1) 02/17/22 06:20 POC Ioniz Calcium Sammie 1.22 mmol/l (1.12-1.32) 02/14/22 13:32 Phosphorus 3.5 mg/dl (2.5-4.9) 02/15/22 06:45 Magnesium 1.5 mg/dl (1.7-2.4) L 02/16/22 05:56 Total Bilirubin 1.1 mg/dl (0.2-1.0) H 02/14/22 13:29 AST 24 U/L (13-39) 02/14/22 13:29 ALT 14 U/L (7-52) 02/14/22 13:29 Alkaline Phosphatase 331 U/L (34-104) H 02/14/22 13:29 Total Creatine Kinase 30 U/L (26-192) 02/14/22 13:29 Troponin I High Sens 12.7 pg/ml (0-14) 02/14/22 13:29 Total Protein 7.3 gm/dl (6.0-8.3) 02/14/22 13:29 Albumin 3.4 gm/dl (3.4-5.0) 02/14/22 13:29 Globulin 3.9 gm/dl (2.5-4.0) 02/14/22 13:29 Albumin/Globulin Ratio 0.9 (0.9-2) 02/14/22 13:29 Urine Color Yellow 02/15/22 05:00 Urine Appearance Clear (Clear) 02/15/22 05:00 Urine pH 5.5 (4.5-7.5) 02/15/22 05:00 Ur Specific [place] > 1.045 (1.000-1.030) H 02/15/22 05:00 Urine Protein 1+ (Negative) H 02/15/22 05:00 Urine Glucose (UA) 2+ (Negative) H 02/15/22 05:00 Urine Ketones Negative (Negative) 02/15/22 05:00 Urine Blood Negative (Negative) 02/15/22 05:00 Urine Nitrite Negative (Negative) 02/15/22 05:00 Urine Bilirubin Negative (Negative) 02/15/22 05:00 Urine Urobilinogen Negative (Negative) 02/15/22 05:00 Ur Leukocyte Esterase Negative (Negative) 02/15/22 05:00 Urine WBC (Auto) 1-5 /hpf (0-5) 02/15/22 05:00 Urine RBC (Auto) 0-4 /hpf (0-4) 02/15/22 05:00 U Hyaline Cast (Auto) 1-5 /lpf (0-5) 02/15/22 05:00 U Epithel Cells (Auto) >30 /lpf (0-5) H 02/15/22 05:00 Urine Bacteria (Auto) Negative (Negative) 02/15/22 05:00 SARS-CoV-2, RNA, NAAT NEGATIVE (NEGATIVE) 02/14/22 15:45 Impressions Chest X-Ray 02/14/22 12:09 XR chest 1V portable HISTORY: 81 years-old Female fall acute chest trauma status post fall COMPARISON: Chest radiograph 08/17/2021 TECHNIQUE: Supine AP view of the chest FINDINGS: Cardiac silhouette is enlarged. Pulmonary vascular congestion without pneumothorax. Trace pleural effusions with mild bibasilar atelectasis. Degenerative changes of the shoulders and spine. Healing subacute nondisplaced bilateral rib fractures. Possible calcification projecting over the neck. IMPRESSION: 1. Cardiomegaly with pulmonary vascular congestion. 2. Trace pleural effusions. 3. No pneumothorax. 4. Healing subacute appearing nondisplaced bilateral rib fractures. ACT 112: Negative or not required by law. The above report was generated using voice recognition software. It may contain grammatical, syntax or spelling errors. Electronically signed by: Beto Francis M.D. 02/14/2022 12:30 PM Hip/Pelvis X-Ray 02/14/22 12:09 XR hip LT 2V w pelvis HISTORY: 81 years-old Female fall, l hip pain acute pelvic pain status post fall COMPARISON: CT abdomen and pelvis 08/05/2021 TECHNIQUE: AP view of the pelvis with 2 views of the left hip FINDINGS: Mild to moderate right with moderate left hip osteoarthritis. No acute fracture, dislocation or avascular necrosis. Arterial calcifications. Moderate fecal retention. IMPRESSION: No acute fracture or dislocation. ACT 112: Negative or not required by law. The above report was generated using voice recognition software. It may contain grammatical, syntax or spelling errors. Electronically signed by: Beto Francis M.D. 02/14/2022 12:33 PM Abdomen/Pelvis CT 02/14/22 12:[address] WITH CONTRAST; CT ABDOMEN AND PELVIS WITH IV CONTRAST; CT LUMBAR SPINE WITH IV CONTRAST CT DOSE: 3634.04 mGy.cm HISTORY: Acute chest, abdominal and back trauma status post fall Trauma, fall on coumadin TECHNIQUE: Multiaxial CT images of the chest, abdomen and pelvis and lumbar spine were performed following the IV administration of 87 cc of Optiray. A dose lowering technique was utilized adhering to the principles of ALARA. COMPARISON: CT abdomen and pelvis 08/05/2021, chest CT 08/09/2018 FINDINGS: CT CHEST: No thyroid nodule identified. Borderline enlarged subcarinal and right hilar lymph nodes measure up to 9 mm. Moderate to marked cardiomegaly without pericardial effusion. Notably the right heart chambers are enlarged. Moderate to extensive coronary artery calcifications. No thoracic aortic aneurysm or dissection. There is patency of the imaged great vessels. Unremarkable pulmonary artery. Subsegmental bibasilar atelectasis. Intralobular septal thickening with intermixed groundglass opacities. Bronchial wall thickening. No suspicious pulmonary nodules or masses are identified. Central airways are patent. Minimal age-indeterminate superior endplate compression of the T1, T2 and T3 vertebral bodies of less than 20% without retropulsion. Healing subacute appearing nondisplaced bilateral rib fractures. No acute displaced rib fracture identified. CT ABDOMEN/PELVIS: No pneumatosis or pneumoperitoneum. Spleen, pancreas and gallbladder and right adrenal gland appear unremarkable. Unchanged left adrenal gland thickening. Diffusely heterogeneous appearance of the liver with marginal nodularity. No hepatic mass identified. Mild nonspecific bilateral perinephric stranding. There are a few subcentimeter bilateral renal hypodensities which are incompletely characterized, possibly small cysts. No hydronephrosis. Unremarkable urinary bladder. Hysterectomy. 3.1 cm left ovarian cyst is unchanged. Atherosclerosis of the aorta without aneurysm. Subcentimeter retroperitoneal lymph nodes are nonspecific. Question gastric wall thickening redemonstrated. No bowel obstruction or bowel wall thickening. Mild fecal retention. Normal appendix. Generalized body wall edema. Degenerative changes of the spine, pelvis and hips. 30% L1 compression deformity is unchanged from prior without retropulsion. Lumbar levoscoliosis. CT LUMBAR SPINE: Chronic L1 compression fracture. Grade 1 anterolisthesis L4 on L5, likely degenerative related. Multilevel intervertebral disc space narrowing, moderate to severe at L2-L3, L3-L4 and L5-S1. No acute fracture or subluxation. Severe multilevel facet arthrosis. Multilevel central canal and neural foraminal narrowing. Central canal stenosis at L4-L5 appears to be severe. The imaged sacrum and iliac bones appear intact. IMPRESSION: 1. No acute extrahepatic intrathoracic, intra-abdominal or intrapelvic abnormality. 2. Cardiomegaly with mild pulmonary edema. 3. Cirrhotic morphology of the liver, possibly secondary to congestive hepatopathy. 4. No acute fracture identified. 5. Additional findings as above. ACT 112: Negative or not required by law. Electronically signed by: Beto Francis M.D. 02/14/2022 3:[address] 02/14/22 12:10 CT cervical spine wo con CLINICAL HISTORY: 81 years-old Female with Trauma, fall on coumadin. Acute head and neck injury status post fall COMPARISON: CT head of same day, CT cervical spine 07/19/2021 TECHNIQUE: Multiple axial CT images of the cervical spine were obtained without contrast. A dose lowering technique was utilized adhering to the principles of ALARA. FINDINGS: Moderate to severe facet arthrosis with associated intervertebral disc space narrowing and spondylitic spurring with chondrocalcinosis of the disc spaces. There is an acute comminuted fracture involving the C2 vertebral body which involves the odontoid process base and lateral masses (type III). 4 mm and volar displacement of the superior most fracture component. Fracture extends into the right C2 pedicle and right vertebral foramen. Severe degeneration of the C1-C2 articulation. No additional acute fracture or subluxation identified. The cervical soft tissues appear unremarkable. Intralobular septal thickening of the lung apices may represent pulmonary edema. No pneumothorax. Trace prevertebral edema at the level C1-C2. IMPRESSION: Acute comminuted fracture of C2 with a type III odontoid fracture. Fracture extends into the right pedicle and vertebral foramen. Correlation with CTA of the neck recommended to exclude an acute vertebral artery injury. ACT 112: Negative or not required by law. The above report was generated using voice recognition software. It may contain grammatical, syntax or spelling errors. Electronically signed by: Beto Francis M.D. 02/14/2022 2:[address] 02/14/22 12:[address] WITH CONTRAST; CT ABDOMEN AND PELVIS WITH IV CONTRAST; CT LUMBAR SPINE WITH IV CONTRAST CT DOSE: 3634.04 mGy.cm HISTORY: Acute chest, abdominal and back trauma status post fall Trauma, fall on coumadin TECHNIQUE: Multiaxial CT images of the chest, abdomen and pelvis and lumbar spine were performed following the IV administration of 87 cc of Optiray. A dose lowering technique was utilized adhering to the principles of ALARA. COMPARISON: CT abdomen and pelvis 08/05/2021, chest CT 08/09/2018 FINDINGS: CT CHEST: No thyroid nodule identified. Borderline enlarged subcarinal and right hilar lymph nodes measure up to 9 mm. Moderate to marked cardiomegaly without pericardial effusion. Notably the right heart chambers are enlarged. Moderate to extensive coronary artery calcifications. No thoracic aortic aneurysm or dissection. There is patency of the imaged great vessels. Unremarkable pulmonary artery. Subsegmental bibasilar atelectasis. Intralobular septal thickening with intermixed groundglass opacities. Bronchial wall thickening. No suspicious pulmonary nodules or masses are identified. Central airways are patent. Minimal age-indeterminate superior endplate compression of the T1, T2 and T3 vertebral bodies of less than 20% without retropulsion. Healing subacute appearing nondisplaced bilateral rib fractures. No acute displaced rib fracture identified. CT ABDOMEN/PELVIS: No pneumatosis or pneumoperitoneum. Spleen, pancreas and gallbladder and right adrenal gland appear unremarkable. Unchanged left adrenal gland thickening. Diffusely heterogeneous appearance of the liver with marginal nodularity. No hepatic mass identified. Mild nonspecific bilateral perinephric stranding. There are a few subcentimeter bilateral renal hypodensities which are incompletely characterized, possibly small cysts. No hydronephrosis. Unremarkable urinary bladder. Hysterectomy. 3.1 cm left ovarian cyst is unchanged. Atherosclerosis of the aorta without aneurysm. Subcentimeter retroperitoneal lymph nodes are nonspecific. Question gastric wall thickening redemonstrated. No bowel obstruction or bowel wall thickening. Mild fecal retention. Normal appendix. Generalized body wall edema. Degenerative changes of the spine, pelvis and hips. 30% L1 compression deformity is unchanged from prior without retropulsion. Lumbar levoscoliosis. CT LUMBAR SPINE: Chronic L1 compression fracture. Grade 1 anterolisthesis L4 on L5, likely degenerative related. Multilevel intervertebral disc space narrowing, moderate to severe at L2-L3, L3-L4 and L5-S1. No acute fracture or subluxation. Severe multilevel facet arthrosis. Multilevel central canal and neural foraminal narrowing. Central canal stenosis at L4-L5 appears to be severe. The imaged sacrum and iliac bones appear intact. IMPRESSION: 1. No acute extrahepatic intrathoracic, intra-abdominal or intrapelvic abnormality. 2. Cardiomegaly with mild pulmonary edema. 3. Cirrhotic morphology of the liver, possibly secondary to congestive he patopathy. 4. No acute fracture identified. 5. Additional findings as above. ACT 112: Negative or not required by law. Electronically signed by: Beto Francis M.D. 02/14/2022 3:[address] 02/14/22 12:10 CT head/brain wo con CLINICAL HISTORY: 81 years-old Female with Trauma, fall on coumadin. Acute head and neck trauma status post fall TECHNIQUE: Multiple axial CT images of the head were obtained without contrast. A dose lowering technique was utilized adhering to the principles of ALARA. COMPARISON: CT cervical spine of same day. FINDINGS: No acute intracranial hemorrhage, midline shift, intracranial mass, hydrocephalus, territorial ischemia or abnormal extra-axial collection. Age- related involutional changes. White matter hypodensities suggest chronic microvascular ischemic disease. The study is motion degraded. The calvarium is intact. Prior bilateral lens repair. Left parietal scalp contusion. The paranasal sinuses, mastoid air cells, and middle ear cavities are clear. IMPRESSION: 1. No acute intracranial abnormality or calvarial fracture. 2. Left parietal scalp contusion. ACT 112: Negative or not required by law. The above report was generated using voice recognition software. It may contain grammatical, syntax or spelling errors. Electronically signed by: Beto Francis M.D. 02/14/2022 2:[address] 02/14/22 12:[address] WITH CONTRAST; CT ABDOMEN AND PELVIS WITH IV CONTRAST; CT LUMBAR SPINE WITH IV CONTRAST CT DOSE: 3634.04 mGy.cm HISTORY: Acute chest, abdominal and back trauma status post fall Trauma, fall on coumadin TECHNIQUE: Multiaxial CT images of the chest, abdomen and pelvis and lumbar spine were performed following the IV administration of 87 cc of Optiray. A dose lowering technique was utilized adhering to the principles of ALARA. COMPARISON: CT abdomen and pelvis 08/05/2021, chest CT 08/09/2018 FINDINGS: CT CHEST: No thyroid nodule identified. Borderline enlarged subcarinal and right hilar lymph nodes measure up to 9 mm. Moderate to marked cardiomegaly without pericardial effusion. Notably the right heart chambers are enlarged. Moderate to extensive coronary artery calcifications. No thoracic aortic aneurysm or dissection. There is patency of the imaged great vessels. Unremarkable pulmonary artery. Subsegmental bibasilar atelectasis. Intralobular septal thickening with intermixed groundglass opacities. Bronchial wall thickening. No suspicious pulmonary nodules or masses are identified. Central airways are patent. Minimal age-indeterminate superior endplate compression of the T1, T2 and T3 vertebral bodies of less than 20% without retropulsion. Healing subacute appearing nondisplaced bilateral rib fractures. No acute displaced rib fracture identified. CT ABDOMEN/PELVIS: No pneumatosis or pneumoperitoneum. Spleen, pancreas and gallbladder and right adrenal gland appear unremarkable. Unchanged left adrenal gland thickening. Diffusely heterogeneous appearance of the liver with marginal nodularity. No hepatic mass identified. Mild nonspecific bilateral perinephric stranding. There are a few subcentimeter bilateral renal hypodensities which are incompletely characterized, possibly small cysts. No hydronephrosis. Unremarkable urinary bladder. Hysterectomy. 3.1 cm left ovarian cyst is unchanged. Atherosclerosis of the aorta without aneurysm. Subcentimeter retroperitoneal lymph nodes are nonspecific. Question gastric wall thickening redemonstrated. No bowel obstruction or bowel wall thickening. Mild fecal retention. Normal appendix. Generalized body wall edema. Degenerative changes of the spine, pelvis and hips. 30% L1 compression deformity is unchanged from prior without retropulsion. Lumbar levoscoliosis. CT LUMBAR SPINE: Chronic L1 compression fracture. Grade 1 anterolisthesis L4 on L5, likely degenerative related. Multilevel intervertebral disc space narrowing, moderate to severe at L2-L3, L3-L4 and L5-S1. No acute fracture or subluxation. Severe multilevel facet arthrosis. Multilevel central canal and neural foraminal narrowing. Central canal stenosis at L4-L5 appears to be severe. The imaged sacrum and iliac bones appear intact. IMPRESSION: 1. No acute extrahepatic intrathoracic, intra-abdominal or intrapelvic abnormality. 2. Cardiomegaly with mild pulmonary edema. 3. Cirrhotic morphology of the liver, possibly secondary to congestive hepatopathy. 4. No acute fracture identified. 5. Additional findings as above. ACT 112: Negative or not required by law. Electronically signed by: Beto Francis M.D. 02/14/2022 3:13 PM Neck CTA 02/14/22 17:26 CT angio neck with con CLINICAL HISTORY: 81 years-old Female with recs from CT neck, r/o vertebral artery injury. Follow-up study in a patient with possible spine fracture COMPARISON STUDY: CT cervical spine of same day TECHNIQUE: Following the IV administration of 114 mL of Optiray, CT angiogram of the neck was performed from the aortic arch to the skull base. Images are reviewed in the axial, sagittal, and coronal planes. 3-D MIPS images are created and assessed. IV contrast was administered without complication. All measurements were calculated based on NASCET criteria. A dose lowering technique was utilized adhering to the principles of ALARA. CT DOSE: 499.07 mGy.cm FINDINGS: Moderate to severe facet arthrosis with associated intervertebral disc space narrowing and spondylitic spurring with chondrocalcinosis of the disc spaces. There is an acute comminuted fracture involving the C2 vertebral body which involves the odontoid process base and lateral masses (type III). 4 mm and volar displacement of the superior most fracture component. Fracture extends into the right C2 pedicle and right vertebral foramen. Severe degeneration of the C1-C2 articulation. No additional acute fracture or subluxation identified. The cervical soft tissues appear unremarkable. Intralobular septal thickening of the lung apices may represent pulmonary edema. No pneumothorax. Trace prevertebral edema at the level C1-C2.. The study is motion degraded. Atherosclerosis of the thoracic aortic arch. Patency of the innominate and imaged subclavian arteries. The common carotid arteries are widely patent. Atherosclerosis of the carotid bulbs and proximal cervical segments of the internal carotid arteries results in less than 50% stenosis. The dominant left vertebral artery is patent. There is only trickle flow noted within the right T1 and T2 segments of the right vertebral artery. The V3 and V4 segments are patent and appear unremarkable. Minimal superior endplate compression involving a few of the upper thoracic segments again noted. Cortical angulation of the sternal manubrium with mild angulation. IMPRESSION: 1. Limited study secondary to motion artifact. 2. The right vertebral artery is likely developmentally diminutive. There is multifocal diminished flow present within the V1 and V2 segments which is an age-indeterminate finding suggestive of multifocal high-grade stenoses. Luminal narrowing secondary to an acute dissection could appear similarly. There is no obvious focal injury of the vertebral artery at the level of C2. 3. Unchanged appearance of the acute C2 fracture described on the CT cervical spine study of same day. 4. Cortical buckling of the sternal manubrium redemonstrated. Correlate with point tenderness to exclude an additional acute fracture. ACT 112: Negative or not required by law. The above report was generated using voice recognition software. It may contain grammatical, syntax or spelling errors. Electronically signed by: Beto Francis M.D. 02/14/2022 6:10 PM
[2022-02-17] MEDS: FERROUS SULFATE 325 MG TAB PO SCH (12:55)
[2022-02-17] MEDS: WARFARIN SOD 1 MG TAB PO SCH (17:11)
[2022-02-17] MEDS: ACETAMINOPHEN 325 MG TAB PO PRN (19:49)
[2022-02-17] MEDS: PANTOprazole 40 MG TAB PO SCH (20:43)
[2022-02-17] MEDS: SIMVASTATIN 20 MG TAB PO SCH (20:44)
[2022-02-17] MEDS: LANTUS PER UNIT CHARGE SQ SCH (20:45)
[2022-02-18 06:36] LABS: Basophils # (auto) 0.07 K/uL (0-0.2); Basophils % (auto) 0.9 %; Eosinophils # (auto) 0.23 K/uL (0-0.50); Eosinophils % (auto) 2.9 %; Hematocrit (blood only) 35.9 % (34.1-44.9); Hemoglobin 11.2 g/dl (12.0-16.0); Immature Granulocytes # (auto) 0.06 K/uL (0.00-0.02); Immature Granulocytes % (auto) 0.8 %; Lymphocytes # (auto) 1.08 K/uL (1.2-3.4); Lymphocytes % (auto) 13.6 %; Mean Corpuscular Hemoglobin 28.1 pg (25.0-34.0); Mean Corpuscular Hgb Conc 31.2 g/dL (32.0-36.0); Mean Corpuscular Volume 90.2 fL (80.0-100.0); Mean Platelet Volume 11.5 fL (9.4-12.3); Monocytes # (auto) 0.66 K/uL (0.24-0.82); Monocytes % (auto) 8.3 %; Neutrophils # (auto) 5.82 K/uL (1.4-6.5); Neutrophils % (auto) 73.5 %; Platelet Count 172 K/uL (130-400); RDW Standard Deviation 49.1 fL (36.4-46.3); Red Blood Count 3.98 M/uL (3.93-5.22); White Blood Count 7.92 K/ul (4.8-10.8)
[2022-02-18 06:43] LABS: INR 1.6 (0.9-1.1); Prothrombin Time 17.1 Seconds (9.0-12.0)
[2022-02-18] MEDS: Ipratropium HFA Inhaler (Combivent Respimat P&T Subs) INH SCH ×3 (07:39→15:40)
[2022-02-18] MEDS: Albuterol HFA 8 GM Inhaler (Combivent Respimat P&T Subs) INH SCH ×3 (07:39→15:40)
[2022-02-18 07:40] LABS: BUN Creatinine Ratio 29.1 (10-20); Calcium 8.9 mg/dl (8.5-10.1); Potassium 3.5 mmol/L (3.5-5.1)
[2022-02-18] MEDS: INSULIN ASPART PER UNIT SC SCH ×2 (08:59→12:12)
[2022-02-18] MEDS: MAGNESIUM CHLORIDE W/CALCIUM 64MG DELAYED REL TAB PO SCH (09:00)
[2022-02-18] MEDS: METOPROLOL TARTRATE 50 MG TAB PO SCH (09:00)
[2022-02-18] MEDS: ADVANCED PROBIOTIC 1250 MG CAPSULE PO SCH (09:01)
[2022-02-18] MEDS: SPIRONOLACTONE 25 MG TAB PO SCH (09:01)
[2022-02-18] MEDS: CHOLECALCIFEROL 5,000 UNITS 125 MCG TAB PO SCH (09:01)
[2022-02-18] MEDS: FAMOTIDINE 20 MG TAB PO SCH (09:02)
[2022-02-18] MEDS: ACETAMINOPHEN 325 MG TAB PO PRN (09:02)
[2022-02-18] MEDS: FLUTICASONE/VILANTEROL 200/25MCG 14 PUFFS/INHALER INH SCH (09:03)
[2022-02-18] MEDS: MICONAZOLE NITRATE POWDER 43 GM EXT SCH ×2 (09:03→13:17)
[2022-02-18] MEDS: FERROUS SULFATE 325 MG TAB PO SCH (11:47)
--- NOTE | 2022-02-18 13:54 | Discharge Summary ---
Date of Service February 18, 2022 Admission HPI Per Admitting Provider 80 yo F with PMHx of A. jarett on coumadin, diastolic CHF, tachy-job syndrome, DM type II, CKD stage III, COPD on 4 L oxygen as needed and at bedtime, HLD presented to the ED 02/14 after fall. Patient was taking her dog out for a walk on a leash and suddenly the dog pulled her down the steps and she fell on her back on the ground. She did not have any lightheadedness or dizziness or loss of consciousness surrounding the event. Patient reports pain in her neck and lower back. Patient has sustained superficial laceration on her right forearm. Patient does have a history of recurrent lower extremity cellulitis, currently appears not infected but lower extremity with crusted superficial wound and edema noted at exam. Patient denies headache or dizziness or chest pain or sore throat or fever or belly pain or acute changes in her bowel or bladder habits lately. Patient denies radicular extremity pain. Patient denies use of tobacco smoke/alcohol/recreational drugs. Full code POA is patient's brother sAif Daniel Admission Exam Per Admitting Provider GENERAL: Alert and oriented x3. NAD, on 4 L nasal cannula oxygen. HEENT: No pallor, no icterus. Pupils equal, round and reactive to light. Oral mucosa moist. Cervical collar in situ/neck immobilized. NECK: No JVD, no neck masses. HEART: S1 and S2 heard. irregular rate and rhythm. No murmur, no gallop. RESPIRATORY SYSTEM: Normal AP diameter. No accessory muscle use. No wheezing, rales positive. ABDOMEN: Soft, bowel sounds present, nontender, no distention. CENTRAL NERVOUS SYSTEM: No facial droop. Speech is clear. Obeys simple commands. Moves extremities. EXTREMITIES: 2+ BLE edema, crusted superficial wound, does not look to be in cellulitis. Right forearm with superficial laceration Principal Diagnosis Mechanical fall Type III odontoid fracture Discharge Exam GENERAL: Alert and oriented x3. NAD, on 2 L nasal cannula oxygen. HEENT: No pallor, no icterus. Pupils equal, round and reactive to light. Oral mucosa moist. Cervical collar in situ. NECK: No JVD, no neck masses. HEART: S1 and S2 heard. irregular rate and rhythm. No murmur, no gallop. RESPIRATORY SYSTEM: Normal AP diameter. No accessory muscle use. No wheezing, rales positive. ABDOMEN: Soft, bowel sounds present, nontender, no distention. CENTRAL NERVOUS SYSTEM: No facial droop. Speech is clear. Obeys simple commands. Moves extremities. EXTREMITIES: 1+ BLE edema, crusted superficial wound, does not look to be in cellulitis. Chronic venous stasis changes BLE. Right forearm with superficial laceration. Discharge Data Allergies Allergy/AdvReac Type Severity Reaction Status Date / Time metformin Allergy Severe EDEMA FACE Verified 02/14/22 13:04 AND HANDS, ITCHY ciprofloxacin Allergy Intermediate RASH Verified 02/14/22 13:04 clindamycin Allergy Intermediate RASH Verified 02/14/22 13:04 pollen extracts Allergy Mild RUNNY NOSE Verified 02/14/22 13:04 Cephalosporins Allergy Unknown Unknown Verified 02/14/22 13:04 montelukast [From Singulair] Allergy Unknown CAN'T Verified 02/14/22 13:04 REMEMBER Penicillins Allergy Unknown CAN'T Verified 02/14/22 13:04 REMEMBER Sulfa (Sulfonamide Allergy Unknown CAN'T Verified 02/14/22 13:04 Antibiotics) REMEMBER Consultations 02/14/22 16:35 ED Decision to Admit Stat 02/14/22 17:03 Consult Orthopedic Surgery Routine Ordered Studies 02/14/22 12:10 CT abd pelvis IV con only Stat CT cervical spine wo con Stat CT chest diagnostic w con Stat CT head/brain wo con Stat CT lumbar spine w con Stat 02/14/22 17:26 CTA neck with con [CT angio neck with con] Routine Hospital Course (1) Odontoid fracture: Plan Patient is a 80 yo F with PMHx of A. fib on coumadin, diastolic CHF, tachy-job syndrome, DM type II, CKD stage III, COPD on 4 L oxygen as needed and at bedtime, HLD presented to the ED 02/14 after fall. Patient was taking her dog out for a walk on a leash and suddenly the dog pulled her down the steps and she fell on her back on the ground. She did not have any lightheadedness or dizziness or loss of consciousness surrounding the event. CT cervical spine showed acute commuted fracture of C2. X-ray hip/pelvis, CT chest, lumbar spine and CT head did not show any significant findings. Orthospine was consulted; patient was put on Boring J collar. No operative intervention was indicated as per orthospine. She was to maintain the collar at all times other than bathing. PT OT evaluation was done and patient was recommended to go to rehab. During the hospitalization, patient was managed for lower extremity ecchymosis and wound by wound care. She was also given Lasix for bilateral lower extremity edema and vascular congestion. Patient was [facility] to [facility] with instruction to follow-up with Dr. Jean and her primary care doctor. Patient's warfarin was resumed on discharged; patient was recommended to have PT/INR checked in 2 days and call anticoagulation clinic. Her Lasix dose was decreased to 20 mg once a day on her discharge. Total Time Total Time Spent Total Time Spent (In Minutes): 35 Total Time Includes: Examination of the Patient, Discharge Planning, Medication Reconciliation, Communication With Other Providers and Other Discharge Plan Discharge Items Patient Disposition: Transfer [facility] Reason For Visit: FALL Discharge Diagnosis: Odontoid fracture: Activity: Per Instructions section Non-emergency contact: Primary Care Provider Call non-emergency contact if: you have any medication questions and your symptoms worsen Follow-up/Referrals: Jimi Sanchez, [Primary Care Provider] - Diet: Regular Diet Texture: Easy to Chew Addtl Attending Provider Instructions: You were admitted to the hospital and found to have type III odontoid fracture. Please maintain the collar at all times other than the bathing. You need to have your cervical collar on for at least 6 weeks. Please follow-up with Dr. Jean (ortho spine) as outpatient. Leg wounds careplease cover the wound in bilateral lower extremity with a dry gauze. Change dressing every day. Please use nystatin cream for fungal infection at groin region. Please check PT/INR after 2 days (on february 20, 2022) and call the anticoagulation center to adjust the dosing of warfarin. Please take Tylenol as necessary for mild pain and oxycodone for severe pain. Please follow-up with your primary care doctor in 1 week. Pending Studies at Discharge: No Stand-Alone Forms: My Cloneless Skilled Items Patient informed of condition?: Yes DNR: No Discharge Level of Care: Skilled Communicable Disease: No Discharge Prognosis: Stable Lines: None Urinary Catheter: No Medications and DC Order Prescriptions: New albuterol sulfate [Ventolin HFA] 90 mcg/actuation Hfa Aerosol Inhaler 1 puff inhalation QIDR PRN (Reason: Shortness Of Breath Or Wheezing) Qty: 6.7 0RF Atrovent HFA 17 mcg/actuation Hfa Aerosol Inhaler 1 puff inhalation QIDR PRN (Reason: Shortness Of Breath) Qty: 12.9 0RF acetaminophen 325 mg Tablet 650 mg PO Q4H PRN (Reason: pain) Qty: 60 0RF simvastatin 20 mg Tablet 20 mg PO HS Qty: 30 0RF metoprolol tartrate 50 mg Tablet 50 mg PO AMHS Qty: 60 0RF warfarin [Jantoven] 1 mg Tablet 1 mg PO DAILY@1600 Qty: 30 0RF ferrous sulfate 325 mg (65 mg iron) Tablet,Delayed Release (Dr/Ec) 325 mg PO DAILY@1200 Qty: 30 0RF oxycodone 5 mg Tablet 5 mg PO Q6H PRN (Reason: pain) Qty: 10 0RF Mag 64 64 mg Tablet,Delayed Release (Dr/Ec) 128 mg PO DAILY Qty: 30 0RF furosemide 20 mg tablet 20 mg PO QAM Qty: 30 0RF Continued fluticasone propion-salmeterol [Wixela Inhub] 250-50 mcg/dose blister with device 1 inh inhalation BID Qty: 60 0RF famotidine 20 mg Tablet 20 mg PO QAM Qty: 30 0RF nystatin 100,000 unit/gram Cream 1 applic TOPICAL AMHS Qty: 1 0RF Rx Instructions: apply under breasts docusate sodium [Colace] 100 mg Capsule 100 mg PO .Q 24HR PRN (Reason: Constipation) Qty: 30 0RF Rx Instructions: give on day 2 of no bm in the am insulin glargine 100 unit/mL (3 mL) insulin pen 15 units SUBCUT HS Qty: 15 0RF cholecalciferol (vitamin D3) 125 mcg (5,000 unit) Tablet 5,000 unit PO QAM Qty: 30 0RF Advanced Probiotic 625 mg (10 billion cell) Capsule 2 cap PO DAILY Qty: 60 0RF Changed insulin aspart U-100 [Novolog Flexpen U-100 Insulin] 100 unit/mL (3 mL) Insulin Pen 1 sliding scale dose SUBCUT AC Qty: 15 0RF Rx Instructions: inject as per sliding scale: for BSG 0- 100=0units 101-150=3units 151-200=4units 201-250=5units 251-300=6units 301-350=7units 351-400=8units 401-450=9units 451-999= 10units recheck in 1 hour Discontinued Combivent Respimat 20-100 mcg/actuation mist 1 puffs INH QID simvastatin 20 mg Tablet 20 mg PO HS ferrous sulfate [iron] 325 mg (65 mg iron) Tablet 325 mg PO .DAILY IN AFTERNOON metoprolol tartrate 25 mg Tablet 50 mg PO AMHS warfarin [Jantoven] 1 mg Tablet 1 mg PO DAILY@1600 Qty: 30 0RF Mag 64 64 mg Tablet,Delayed Release (Dr/Ec) 128 mg PO DAILY Qty: 120 0RF Rx Instructions: take 128 mg twice a day. No Action acetaminophen [Tylenol] 325 mg Tablet 650 mg PO Q4 PRN (Reason: Pain (Scale Score 1-3)) acetaminophen 325 mg Tablet 650 mg PO QID MDD 3g PRN (Reason: temp>100) Discharge Orders: Discharge Order (Routine); Ordered 02/18/22 Ordered By: Juan Barrera Admission Data Admit Date/Time: 02/14/22 16:41 Attending Provider: Juan Barrera Admit Provider: Jose Bryant Primary Care Provider: Jimi Sanchez Other Providers: Obdulio Jean ; [place] ; [facility] Other Interventions: Discharge Summary Assessment (RN) Last Done: 02/18/22 11:03
[2022-02-18] MEDS: WARFARIN SOD 1 MG TAB PO SCH (15:44)
== END 2022-02-18 16:01 | DRG 552 ==
LOC: ED 11:57 → 2N 16:41 → SUATTDRO 16:41 → 2N 18:29

== ENCOUNTER 2022-05-20 20:30 | Inpatient (IN) ==
--- NOTE | 2022-05-20 21:58 | Emergency Department Note ---
History of Present Illness General Chief complaint: Leg Injury/Pain Stated complaint: LEFT LEG PAIN SINCE THIS MORNING Time Seen by Provider: 05/20/22 21:30 History of Present Illness Maximum Pain Intensity: 9 This is an 81-year-old female presenting to the emergency department for evalua tion of left leg pain and inability to ambulate for the past 12 hours. The patient has several chronic medical problems including chronic kidney disease, atrial fibrillation, chronic long-term use of anticoagulants, and recent falls. One of her recent falls in January did cause her odontoid fracture and she is in a [place] collar. The patient was at home today and was scheduled for outpatient CT scan to reevaluate for her neck injury. She was not able to make the appointment because she was not able to get off of her couch. She does feel weak but does not report fever. No significant chest pain, chest tightness, or shortness of breath. She does arrive to the ER via EMS and family is at bedside assisting in the history. The patient rates her discomfort in her leg and 9/10. Per family the patient is only minimally adherent to her chronic medications, which complicates her care. Home Medications Medication Instructions Recorded Confirmed Type acetaminophen 325 mg tablet 650 mg PO Q4H PRN pain #60 tabs 02/18/22 05/21/22 Rx cholecalciferol (vitamin D3) 125 5,000 unit PO QAM #30 tabs 02/18/22 05/21/22 Rx mcg (5,000 unit) tablet famotidine 20 mg tablet 20 mg PO QAM #30 tabs 02/18/22 05/21/22 Rx insulin aspart U-100 100 unit/mL 1 sliding scale dose subcut AC #15 02/18/22 05/21/22 Rx (3 mL) subcutaneous pen (Novolog mL Flexpen U-100 Insulin aspart) insulin glargine 100 unit/mL (3 15 units (0.15 mL) subcut HS #15 mL 02/18/22 05/21/22 Rx mL) subcutaneous pen magnesium chloride 64 mg 128 mg PO DAILY #30 tabs 02/18/22 05/21/22 Rx (magnesium chloride) tablet,delayed release (Mag 64) metoprolol tartrate 50 mg tablet 50 mg PO AMHS #60 tabs 02/18/22 05/21/22 Rx simvastatin 20 mg tablet 20 mg PO HS #30 tabs 02/18/22 05/21/22 Rx Saccharomyces boulardii 250 mg 250 mg PO BID 05/21/22 05/21/22 History capsule (Florastor) albuterol sulfate 90 mcg/actuation 1 puff inhalation Q4H PRN 05/21/22 05/21/22 History aerosol inhaler (Ventolin HFA) Shortness Of Breath Or Wheezing clobetasol 0.05 % topical cream 1 applic topical BID PRN SKIN 05/21/22 05/21/22 History IRRITATION ON LEGS ferrous sulfate 325 mg (65 mg 325 mg PO QDL 05/21/22 05/21/22 History iron) tablet,delayed release ipratropium bromide 17 2 puff inhalation Q6H PRN 05/21/22 05/21/22 History mcg/actuation HFA aerosol inhaler Shortness Of Breath (Atrovent HFA) menthol 0.44 %-zinc oxide 20.6 % 1 applic topical QID PRN NEEDED 05/21/22 05/21/22 History topical ointment (Calmoseptine) PER GMG omeprazole 20 mg capsule,delayed 20 mg PO HS 05/21/22 05/21/22 History release spironolactone 25 mg tablet 25 mg PO DAILY 05/21/22 05/21/22 History warfarin 2 mg tablet 1 mg PO .DAILY @ 1600 05/21/22 05/21/22 History Allergies Allergy/AdvReac Type Severity Reaction Status Date / Time metformin Allergy Severe EDEMA FACE Verified 02/14/22 13:04 AND HANDS, ITCHY ciprofloxacin Allergy Intermediate RASH Verified 02/14/22 13:04 clindamycin Allergy Intermediate RASH Verified 02/14/22 13:04 pollen extracts Allergy Mild RUNNY NOSE Verified 02/14/22 13:04 Cephalosporins Allergy Unknown Unknown Verified 02/14/22 13:04 montelukast [From Singulair] Allergy Unknown CAN'T Verified 02/14/22 13:04 REMEMBER Penicillins Allergy Unknown CAN'T Verified 02/14/22 13:04 REMEMBER Sulfa (Sulfonamide Allergy Unknown CAN'T Verified 02/14/22 13:04 Antibiotics) REMEMBER Past Med/Surg History Medical History A-fib Cellulitis CKD (chronic kidney disease) stage 3, GFR 30-59 ml/min COPD (chronic obstructive pulmonary disease) Diastolic CHF DM type 2 (diabetes mellitus, type 2) Dyslipidemia Hypomagnesemia Hypoxemic respiratory failure, chronic Nocturnal hypoxemia Obesity hypoventilation syndrome Osteoarthritis Pacemaker infection s/p removal Sepsis Staphylococcus aureus bacteremia Tachycardia-bradycardia syndrome Type 2 diabetes mellitus Surgical History History of cataract surgery History of hysterectomy History of total left knee replacement S/P adenoidectomy Family History Mother Diabetes Heart disease Social History Smoking Status: Former smoker Tobacco Type: Cigarettes Second Hand Exposure: Yes; Hx Alcohol Use: No Hx Substance Use: No Preferred Language: Haitian Communication Ability: Effective Visual Impairment: No Limitations Hearing Ability: Normal Scaffold Erector Required: No Beliefs That Will Affect Care: None marital status: / Current Living Situation: Alone Current Living Situation Comment: mobile home current occupational status: retired How many Children do You have: 1 Feels Safe at Home: Yes Assistive Devices: Oxygen - Continuous, Scooter/Electric Scooter and Walker Review of Systems A total of 10 systems reviewed and were otherwise negative Physical Exam Vital Signs Vital Signs - 24 hr 05/20/22 20:33 05/20/22 23:33 05/20/22 23:34 Temperature 36.0 C L Temperature Source Temporal Artery Scan Pulse Rate 106 H 116 H Pulse Rate [Apical] 112 H Respiratory Rate 20 18 18 Respiratory Effort / Characteristics Non-Labored Spontaneous Non-Labored Spontaneous Respiratory Depth Normal Normal Blood Pressure 106/56 L Blood Pressure [Right Arm] 99/67 L Blood Pressure Mean 72 Blood Pressure Mean [Right Arm] 77 Blood Pressure Position [Right Arm] Lying Pulse Oximetry 99 96 96 Oxygen Delivery Method Room Air Room Air Room Air Sepsis New/Unexplained Change in Mental Status N/A Sepsis Action Taken by Nursing No Action Required VITALS: Vitals are noted on the nurse's note and reviewed by myself. Vital signs with tachycardia. GENERAL: Elderly white female who is ill appearing and quite unwell. She is wearing her [place] collar and is answering questions appropriately. HEAD: Normocephalic atraumatic. HEART: Irregularly irregular LUNGS: Clear to auscultation bilaterally without wheezes, rales or rhonchi. No retractions or accessory muscle use. MUSCULOSKELETAL: Diffuse erythema noted over the anterior aspect of the left knee into the left side posterior thigh and left side buttocks. This certainly could be consistent with a cellulitis. There appears to be a left lower panniculitis as well. NEURO: Patient was alert and oriented to person place and time. CN II through XII grossly intact. Course Administered Medications Daptomycin 400 mg/ Syringe 8 mls @ 4 mls/min IV Q24H [facility]; Protocol Stop: 05/22/22 23:44 Last Admin: 05/21/22 00:05 Dose: 4 mls/min Documented By: SPRING Sodium Chloride (Nss 1000ml) 1,000 mls @ 80 mls/hr IV .[id number] [facility] Stop: 05/22/22 02:14 Last Admin: 05/21/22 02:10 Dose: 80 mls/hr Documented By: DORETHA Magnesium Sulfate/Dextrose (Magnesium Sulfate / D5w) 1 gm in 100 mls @ 50 mls/hr IV Q2H [facility]IC Stop: 05/21/22 07:29 Last Admin: 05/21/22 02:05 Dose: 50 mls/hr Documented By: DORETHA Oxycodone HCl (Oxycodone Hcl Ir 5 Mg Tab (Immediate Release)) 5 mg PO Q6H PRN PRN Reason: moderate pain 4-6 Stop: 06/04/22 01:07 Last Admin: 05/21/22 02:05 Dose: 5 mg Documented By: DORETHA Discontinued Medications Sodium Chloride (Nss 1000ml) 500 mls @ 999 mls/hr IV .Q31M ONE Stop: 05/20/22 23:55 Last Infusion: 05/21/22 01:59 Dose: 0 mls/hr Documented By: Admin: 05/20/22 23:39 Dose: 999 mls/hr Documented By: SPRING Critical Care Time I have personally spent greater than 30 minutes of critical care time in the direct management of this patient. This includes bedside care, interpretation of diagnostic studies, and testing, discussion with consultants, patient, and family members, and other required patient management activities. This 30 minutes is in excess of all separately billable procedures. Medical Decision Making Differential Diagnosis Differential diagnosis: Etiologies such as viral syndrome, otitis, pharyngitis, pneumonia, influenza, meningitis, urinary tract infection, septic arthritis, soft tissue infectious process, intra-abdominal process, sepsis, bacteremia, as well as others were entertained. Laboratory Data Result diagrams: 05/20/22 22:43 05/20/22 22:43 Lab Results 05/20/22 05/20/22 05/20/22 Range/Units 22:43 22:43 22:43 WBC 31.05 H* (4.8-10.8) K/ul RBC 4.23 (3.93-5.22) M/uL Hgb 11.9 L (12.0-16.0) g/dl Hct 37.3 (34.1-44.9) % MCV 88.2 (80.0-100.0) fL MCH 28.1 (25.0-34.0) pg MCHC 31.9 L (32.0-36.0) g/dL RDW Std Deviation 50.8 H (36.4-46.3) fL RDW Coeff of Silvana 15.7 H (11.5-14.5) % Plt Count 233 (130-400) K/uL MPV 12.3 (9.4-12.3) fL Immature Gran % (Auto) 0.9 % Neut % (Auto) 94.2 % Lymph % (Auto) 2.5 % [place] % (Auto) 1.6 % Eos % (Auto) 0.4 % Baso % (Auto) 0.4 % Neut # (Auto) 29.24 H (1.4-6.5) K/uL Lymph # (Auto) 0.78 L (1.2-3.4) K/uL [place] # (Auto) 0.51 (0.24-0.82) K/uL Eos # (Auto) 0.12 (0-0.50) K/uL Baso # (Auto) 0.11 (0-0.2) K/uL Immature Gran # (Auto) 0.29 H (0.00-0.02) K/uL Toxic Vacuolation 1+ Echinocytes 1+ PT (9.0-12.0) Seconds INR (0.9-1.1) APTT (21.0-31.0) Seconds PTT Ratio Sodium (136-145) mmol/L Potassium (3.5-5.1) mmol/L Chloride (98-107) mmol/L Carbon Dioxide (21-32) mmol/L Anion Gap (3-11) BUN (6-23) mg/dl Creatinine (0.6-1.2) mg/dl Est Cr Clr Drug Dosing Est GFR ( Amer) ml/min Est GFR (Non-Af Amer) ml/min BUN/Creatinine Ratio (10-20) Glucose (70-99(Fasting)) mg/dl Lactate (0.4-2.0) mmol/L Calcium (8.5-10.1) mg/dl Magnesium (1.7-2.4) mg/dl Total Bilirubin (0.2-1.0) mg/dl AST (13-39) U/L ALT (7-52) U/L Alkaline Phosphatase (34-104) U/L Total Creatine Kinase (26-192) U/L Troponin I High Sens (0-14) pg/ml B-Natriuretic Peptide 422 H (0-100) pg/ml Total Protein (6.0-8.3) gm/dl Albumin (3.4-5.0) gm/dl Globulin (2.5-4.0) gm/dl Albumin/Globulin Ratio (0.9-2) Procalcitonin 15.98 H (0-0.5) ng/ml SARS-CoV-2 (PCR) (Negative) Influenza Type A (PCR) (Neg) Influenza Type B (PCR) (Neg) RSV (RT-PCR) (Neg) 05/20/22 05/20/22 05/20/22 Range/Units 22:43 22:43 22:43 WBC (4.8-10.8) K/ul RBC (3.93-5.22) M/uL Hgb (12.0-16.0) g/dl Hct (34.1-44.9) % MCV (80.0-100.0) fL MCH (25.0-34.0) pg MCHC (32.0-36.0) g/dL RDW Std Deviation (36.4-46.3) fL RDW Coeff of Silvana (11.5-14.5) % Plt Count (130-400) K/uL MPV (9.4-12.3) fL Immature Gran % (Auto) % Neut % (Auto) % Lymph % (Auto) % [place] % (Auto) % Eos % (Auto) % Baso % (Auto) % Neut # (Auto) (1.4-6.5) K/uL Lymph # (Auto) (1.2-3.4) K/uL [place] # (Auto) (0.24-0.82) K/uL Eos # (Auto) (0-0.50) K/uL Baso # (Auto) (0-0.2) K/uL Immature Gran # (Auto) (0.00-0.02) K/uL Toxic Vacuolation Echinocytes PT 18.4 H (9.0-12.0) Seconds INR 1.8 H (0.9-1.1) APTT 35.8 H (21.0-31.0) Seconds PTT Ratio 1.3 Sodium 134 L (136-145) mmol/L Potassium 4.7 (3.5-5.1) mmol/L Chloride 98 (98-107) mmol/L Carbon Dioxide 25 (21-32) mmol/L Anion Gap 11 (3-11) BUN 55 H (6-23) mg/dl Creatinine 2.48 H (0.6-1.2) mg/dl Est Cr Clr Drug Dosing Not Reportable Est GFR ( Amer) 20.6 ml/min Est GFR (Non-Af Amer) 17.7 ml/min BUN/Creatinine Ratio 22.2 H (10-20) Glucose 129 H (70-99(Fasting)) mg/dl Lactate 2.1 H* (0.4-2.0) mmol/L Calcium 9.0 (8.5-10.1) mg/dl Magnesium 1.2 L (1.7-2.4) mg/dl Total Bilirubin 1.0 (0.2-1.0) mg/dl AST 21 (13-39) U/L ALT 7 (7-52) U/L Alkaline Phosphatase 222 H (34-104) U/L Total Creatine Kinase 25 L (26-192) U/L Troponin I High Sens 30.1 H (0-14) pg/ml B-Natriuretic Peptide (0-100) pg/ml Total Protein 7.3 (6.0-8.3) gm/dl Albumin 3.0 L (3.4-5.0) gm/dl Globulin 4.3 H (2.5-4.0) gm/dl Albumin/Globulin Ratio 0.7 L (0.9-2) Procalcitonin (0-0.5) ng/ml SARS-CoV-2 (PCR) (Negative) Influenza Type A (PCR) (Neg) Influenza Type B (PCR) (Neg) RSV (RT-PCR) (Neg) 05/20/22 Range/Units Unknown WBC (4.8-10.8) K/ul RBC (3.93-5.22) M/uL Hgb (12.0-16.0) g/dl Hct (34.1-44.9) % MCV (80.0-100.0) fL MCH (25.0-34.0) pg MCHC (32.0-36.0) g/dL RDW Std Deviation (36.4-46.3) fL RDW Coeff of Silvana (11.5-14.5) % Plt Count (130-400) K/uL MPV (9.4-12.3) fL Immature Gran % (Auto) % Neut % (Auto) % Lymph % (Auto) % [place] % (Auto) % Eos % (Auto) % Baso % (Auto) % Neut # (Auto) (1.4-6.5) K/uL Lymph # (Auto) (1.2-3.4) K/uL [place] # (Auto) (0.24-0.82) K/uL Eos # (Auto) (0-0.50) K/uL Baso # (Auto) (0-0.2) K/uL Immature Gran # (Auto) (0.00-0.02) K/uL Toxic Vacuolation Echinocytes PT (9.0-12.0) Seconds INR (0.9-1.1) APTT (21.0-31.0) Seconds PTT Ratio Sodium (136-145) mmol/L Potassium (3.5-5.1) mmol/L Chloride (98-107) mmol/L Carbon Dioxide (21-32) mmol/L Anion Gap (3-11) BUN (6-23) mg/dl Creatinine (0.6-1.2) mg/dl Est Cr Clr Drug Dosing Est GFR ( Amer) ml/min Est GFR (Non-Af Amer) ml/min BUN/Creatinine Ratio (10-20) Glucose (70-99(Fasting)) mg/dl Lactate (0.4-2.0) mmol/L Calcium (8.5-10.1) mg/dl Magnesium (1.7-2.4) mg/dl Total Bilirubin (0.2-1.0) mg/dl AST (13-39) U/L ALT (7-52) U/L Alkaline Phosphatase (34-104) U/L Total Creatine Kinase (26-192) U/L Troponin I High Sens (0-14) pg/ml B-Natriuretic Peptide (0-100) pg/ml Total Protein (6.0-8.3) gm/dl Albumin (3.4-5.0) gm/dl Globulin (2.5-4.0) gm/dl Albumin/Globulin Ratio (0.9-2) Procalcitonin (0-0.5) ng/ml SARS-CoV-2 (PCR) NEGATIVE (Negative) Influenza Type A (PCR) Negative (Neg) Influenza Type B (PCR) Negative (Neg) RSV (RT-PCR) Negative (Neg) ECG Data Additional Comments: Atrial fibrillation with rapid ventricular response @109 bpm Cannot rule out Anterior infarct , age undetermined When compared with ECG of 14-FEB-2022 12:32, Nonspecific T wave abnormality, improved in Inferior leads Nonspecific T wave abnormality no longer evident in Anterior leads MDM Narrative Physical exam and history were performed. Nursing notes, EMR, and Medication List were personally reviewed. Social concerns were identified as barriers to patients care. She does not have significant home care, and is often nonadherent to her medications. Patient appears to have a large swath of cellulitis of her left lower leg. She is not able to ambulate and she is tachycardic. She has extensive medical history and presentation is quite concerning. IV access was established and labs were obtained. She was very gently hydrated with normal saline due to her cardiac history and history of CHF/fluid overload. The patient was started on daptomycin empirically, as she has had this in the past and does have several antibiotic allergies. The patient's blood work is as above and was reviewed. She has a markedly elevated white blood cell count of greater than 30,000. Her lactic acid is slightly elevated. Troponin is elevated, which is fairly new for her and I suspect is demand related as her EKG is with tachycardia. She also has some mild kidney injury which appears worse than her baseline. Case was discussed with the on-call hospitalist team as the patient does not appear well for discharge home. Please see their dictation for further patient course, plan, and disposition. The chart was completed utilizing [employer] Speech Voice Recognition Software. Grammatical errors, random word insertions, pronoun errors, and incomplete sentences are an occasional consequence of this system due to software limitations, ambient noise, and hardware issues. Any formal questions or c oncerns about the content, text, or information contained within the body of this dictation should be directly addressed to the provider for clarification. . Impression & Plan Sepsis, SON (acute kidney injury), Cellulitis of left leg, Ambulatory dysfunction, Elevated troponin Discharge Plan Visit Data Chief Complaint: Leg Injury/Pain Stated Complaint: LEFT LEG PAIN SINCE THIS MORNING ED Provider: Blair Rutledge ED Midlevel Provider: Dennis White Discharge Problem: Sepsis, SON (acute kidney injury), Cellulitis of left leg, Ambulatory dysfunction, Elevated troponin Discharge Instructions Interventions: ED Discharge Assessment Last Done: 05/21/22 02:36
[2022-05-20 23:11] LABS: INR 1.8 (0.9-1.1); Partial Thromboplastin Ratio 1.3; Partial Thromboplastin Time 35.8 Seconds (21.0-31.0); Prothrombin Time 18.4 Seconds (9.0-12.0)
[2022-05-20 23:17] LABS: Alanine Aminotransferase 7 U/L (7-52); Albumin Globulin Ratio 0.7 (0.9-2); Alkaline Phosphatase 222 U/L (34-104); Anion Gap 11 (3-11); Aspartate Aminotransferase 21 U/L (13-39); BUN Creatinine Ratio 22.2 (10-20); Blood Urea Nitrogen 55 mg/dl (6-23); Carbon Dioxide 25 mmol/L (21-32); Chloride 98 mmol/L (98-107); Creatine Kinase 25 U/L (26-192); Est GFR (African American) 20.6 ml/min; Est GFR (Non-African American) 17.7 ml/min; Globulin 4.3 gm/dl (2.5-4.0); Glucose 129 mg/dl (70-99(Fasting)); Magnesium 1.2 mg/dl (1.7-2.4); Potassium 4.7 mmol/L (3.5-5.1); Sodium 134 mmol/L (136-145); Total Protein 7.3 gm/dl (6.0-8.3)
[2022-05-20 23:22] LABS: Troponin I High Sensitivity 30.1 pg/ml (0-14)
[2022-05-20] MEDS ORDERED: SODIUM CHLORIDE 0.9% 1000ML 500 ML IV ONE (23:25)
[2022-05-20] MEDS ORDERED: DAPTOmycin 400 MG in SYRINGE 0 ML IV SCH (23:45)
[2022-05-20 23:47] LABS: Hematocrit (blood only) 37.3 % (34.1-44.9); Hemoglobin 11.9 g/dl (12.0-16.0); Mean Corpuscular Hemoglobin 28.1 pg (25.0-34.0); Mean Corpuscular Hgb Conc 31.9 g/dL (32.0-36.0); Mean Corpuscular Volume 88.2 fL (80.0-100.0); Mean Platelet Volume 12.3 fL (9.4-12.3); Platelet Count 233 K/uL (130-400); RDW Coefficient of Variation 15.7 % (11.5-14.5); RDW Standard Deviation 50.8 fL (36.4-46.3); Red Blood Count 4.23 M/uL (3.93-5.22); White Blood Count 31.05 K/ul (4.8-10.8)
[2022-05-20 23:48] LABS: Basophils # (auto) 0.11 K/uL (0-0.2); Basophils % (auto) 0.4 %; Echinocytes 1+; Eosinophils # (auto) 0.12 K/uL (0-0.50); Eosinophils % (auto) 0.4 %; Immature Granulocytes # (auto) 0.29 K/uL (0.00-0.02); Immature Granulocytes % (auto) 0.9 %; Lymphocytes # (auto) 0.78 K/uL (1.2-3.4); Lymphocytes % (auto) 2.5 %; Monocytes # (auto) 0.51 K/uL (0.24-0.82); Monocytes % (auto) 1.6 %; Neutrophils # (auto) 29.24 K/uL (1.4-6.5); Neutrophils % (auto) 94.2 %; Toxic Vacuolation 1+
[2022-05-21 00:10] LABS: Influenza A virus by PCR Negative (Neg); Influenza B virus by PCR Negative (Neg); RSV by PCR Negative (Neg); SARS CoV2 RNA(COVID-19) Ceph NEGATIVE (Negative)
[2022-05-21] MEDS ORDERED: POLYETHYLENE (MIRALAX) 17 GM PACK PO PRN (00:59)
[2022-05-21] MEDS ORDERED: ACETAMINOPHEN 325 MG TAB PO PRN (00:59)
[2022-05-21] MEDS ORDERED: oxyCODONE HCL IR 5 MG TAB (IMMEDIATE RELEASE) PO PRN (01:08)
--- NOTE | 2022-05-21 01:26 | History & Physical Report ---
Date of Service May 21, 2022 Assessment & Plan (1) Severe sepsis: Plan Severe sepsis POA: Elevated pulse rate/WBC/lactic acid on background of LLE cellulitis LLE cellulitis: Patient has a history of recurrent lower extremity cellulitis Increased blood lactic acid level Patient comes in with acute worsening of her left lower extremity pain and inability to ambulate. At admission WBC/lactic acid/pulse rate elevated Status post 0.5 L IV fluid in the ED, will continue with IV fluid. Continue with daptomycin started in the ED. ID consult. Telemetry monitoring. Follow-up knee x-ray and lower extremity venous Doppler study. Follow-up blood culture. CPK 25 at admission, hold statin while on daptomycin. Pain Mx. SON over CKD stage III: Admitting BUN and creatinine of 55 and 2.48, baseline creatinine around 1.1-1.3, likely prerenal secondary to sepsis, gentle hydration, watch out for fluid overload, BMP in AM. Hold nephrotoxic's. Hypomagnesemia: Patient with chronic history of low magnesium, on magnesium supplement at home, will replete in IV form as well, monitor and replete as appropriate. Likely demand ischemia: Secondary to sepsis, troponin elevated at 30.1, EKG with no acute ST or T changes but with A. fib and RVR. Other chronic medical conditions: Resume home meds as able. On cervical collar for h/o odontoid fracture. DVT prophylaxis: Patient on Coumadin Full code History of Present Illness Chief Complaint: Leg pain and inability to ambulate for 1 day Primary Care Provider: Jimi Sanchez, DO 80 yo F with PMHx of recurrent lower extremity cellulitis, A. fib on coumadin, diastolic CHF, tachy-job syndrome, DM type II, CKD stage III, COPD on 4 L oxygen as needed and at bedtime, HLD presented to the ED 05/20 due to acute onset left lower extremity pain and difficulty ambulating for 1 day. Patient reports having on and off lower extremity pain for a long time, yesterday around afternoon, she was not able to get up off the chair due to severe left lower extremity pain which is more abrupt and severe than her usual pain per patient. Patient denies any fever or fall or trauma. Patient denies any chest pain or sore throat or palpitation or shortness of breath or acute changes in her bladder habit. Patient does have on and off loose stool, partly could be due to her p.o. magnesium therapy. 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 Medications reviewed with the patient. Patient denies use of tobacco smoke/alcohol/recreational drugs. Patient states quitting smoking tobacco in 1967. Full code POA is patient's son Bart per pt (she is in the process of making him POA). Allergies Allergy/AdvReac Type Severity Reaction Status Date / Time metformin Allergy Severe EDEMA FACE Verified 02/14/22 13:04 AND HANDS, ITCHY ciprofloxacin Allergy Intermediate RASH Verified 02/14/22 13:04 clindamycin Allergy Intermediate RASH Verified 02/14/22 13:04 pollen extracts Allergy Mild RUNNY NOSE Verified 02/14/22 13:04 Cephalosporins Allergy Unknown Unknown Verified 02/14/22 13:04 montelukast [From Singulair] Allergy Unknown CAN'T Verified 02/14/22 13:04 REMEMBER Penicillins Allergy Unknown CAN'T Verified 02/14/22 13:04 REMEMBER Sulfa (Sulfonamide Allergy Unknown CAN'T Verified 02/14/22 13:04 Antibiotics) REMEMBER Home Medications Medication Instructions Recorded Confirmed Type acetaminophen 325 mg tablet 650 mg PO Q4H PRN pain #60 tabs 02/18/22 05/21/22 Rx cholecalciferol (vitamin D3) 125 5,000 unit PO QAM #30 tabs 02/18/22 05/21/22 Rx mcg (5,000 unit) tablet famotidine 20 mg tablet 20 mg PO QAM #30 tabs 02/18/22 05/21/22 Rx insulin aspart U-100 100 unit/mL 1 sliding scale dose subcut AC #15 02/18/22 05/21/22 Rx (3 mL) subcutaneous pen (Novolog mL Flexpen U-100 Insulin aspart) insulin glargine 100 unit/mL (3 15 units (0.15 mL) subcut HS #15 mL 02/18/22 05/21/22 Rx mL) subcutaneous pen magnesium chloride 64 mg 128 mg PO DAILY #30 tabs 02/18/22 05/21/22 Rx (magnesium chloride) tablet,delayed release (Mag 64) metoprolol tartrate 50 mg tablet 50 mg PO AMHS #60 tabs 02/18/22 05/21/22 Rx simvastatin 20 mg tablet 20 mg PO HS #30 tabs 02/18/22 05/21/22 Rx Saccharomyces boulardii 250 mg 250 mg PO BID 05/21/22 05/21/22 History capsule (Florastor) albuterol sulfate 90 mcg/actuation 1 puff inhalation Q4H PRN 05/21/22 05/21/22 History aerosol inhaler (Ventolin HFA) Shortness Of Breath Or Wheezing clobetasol 0.05 % topical cream 1 applic topical BID PRN SKIN 05/21/22 05/21/22 History IRRITATION ON LEGS ferrous sulfate 325 mg (65 mg 325 mg PO QDL 05/21/22 05/21/22 History iron) tablet,delayed release ipratropium bromide 17 2 puff inhalation Q6H PRN 05/21/22 05/21/22 History mcg/actuation HFA aerosol inhaler Shortness Of Breath (Atrovent HFA) menthol 0.44 %-zinc oxide 20.6 % 1 applic topical QID PRN NEEDED 05/21/22 05/21/22 History topical ointment (Calmoseptine) PER GMG omeprazole 20 mg capsule,delayed 20 mg PO HS 05/21/22 05/21/22 History release spironolactone 25 mg tablet 25 mg PO DAILY 05/21/22 05/21/22 History warfarin 2 mg tablet 1 mg PO .DAILY @ 1600 05/21/22 05/21/22 History Past Med/Surg History Medical History A-fib Cellulitis CKD (chronic kidney disease) stage 3, GFR 30-59 ml/min COPD (chronic obstructive pulmonary disease) Diastolic CHF DM type 2 (diabetes mellitus, type 2) Dyslipidemia Hypomagnesemia Hypoxemic respiratory failure, chronic Nocturnal hypoxemia Obesity hypoventilation syndrome Osteoarthritis Pacemaker infection s/p removal Sepsis Staphylococcus aureus bacteremia Tachycardia-bradycardia syndrome Type 2 diabetes mellitus Surgical History History of cataract surgery History of hysterectomy History of total left knee replacement S/P adenoidectomy Family History Mother Diabetes Heart disease Social History Smoking Status: Former smoker Tobacco Type: Cigarettes Second Hand Exposure: Yes; Hx Alcohol Use: No Hx Substance Use: No Preferred Language: [place] Communication Ability: Effective Visual Impairment: No Limitations Hearing Ability: Normal Component Design Engineer Required: No Beliefs That Will Affect Care: None marital status: / Current Living Situation: Alone Current Living Situation Comment: mobile home current occupational status: retired How many Children do You have: 1 Feels Safe at Home: Yes Assistive Devices: Oxygen - Continuous, Scooter/Electric Scooter and Walker Review of Systems Review of Systems: Negative otherwise mentioned in HPI. Physical Exam Physical Exam: GENERAL: Alert and oriented x3. NAD, on RA. HEENT: No pallor, no icterus. Pupils equal, round and reactive to light. Oral mucosa moist. NECK: No JVD, no neck masses. Cervical collar in place HEART: S1 and S2 heard. Irregular, in 110s, No murmur, no gallop. RESPIRATORY SYSTEM: Normal AP diameter. No accessory muscle use. No wheezing, no crackles. ABDOMEN: Soft, bowel sounds present, nontender, no distention. CENTRAL NERVOUS SYSTEM: No facial droop. Speech is clear. Obeys simple commands. Moves extremities. EXTREMITIES: BLE chronic skin changes w/ crusted superficial wound. LLE w/ erythema from upper thigh extending upto mid leg; warmth and tender. Results & Data Results & Data ([facility]) Vital Signs (Past 12 Hours) Vital Signs Temp Pulse Pulse Resp BP BP Pulse Ox 05/20/22 23:34 112 H 18 99/67 L 96 05/20/22 23:33 116 H 18 96 05/20/22 20:33 36.0 C L 106 H 20 106/56 L 99 O2 Del Method 05/20/22 23:34 Room Air 05/20/22 23:33 Room Air 05/20/22 20:33 Room Air
[2022-05-21] MEDS: MAGNESIUM SULFATE / D5W 1 GM/100 ML BAG IV SCH ×3 (02:05→06:17)
[2022-05-21] MEDS: SODIUM CHLORIDE 0.9% 1000ML 1,000 ML IV SCH ×2 (02:10→18:01)
[2022-05-21] MEDS ORDERED: DEXTROSE 50% 50 ML SYRINGE IV PRN (02:36)
[2022-05-21] MEDS ORDERED: GLUCOSE 10 TAB/TUBE PO PRN (02:36)
[2022-05-21] MEDS ORDERED: GLUCOSE 40% GEL 15 GM TUBE PO PRN (02:36)
[2022-05-21] MEDS ORDERED: ALBUTEROL HFA 8 GM INHALER INH PRN (02:36)
[2022-05-21] MEDS ORDERED: GLUCAGON FOR INJ 1 MG VIAL SQ PRN (02:36)
[2022-05-21] MEDS ORDERED: CARBOHYDRATES FOR HYPOGLYCEMIA PO PRN (02:36)
[2022-05-21] MEDS ORDERED: NON-FORMULARY MEDICATION (Clobetasol 0.05 % Cream) TOP PRN (02:36)
[2022-05-21] MEDS ORDERED: IPRATROPIUM BROMIDE HFA INHALER INH PRN (02:36)
[2022-05-21] MEDS ORDERED: METOPROLOL TARTRATE 50 MG TAB PO ONE (02:45)
[2022-05-21] MEDS ORDERED: BETAMETHASONE DIP AUG (DIPROLENE) 0.05% CR 15 GM TUBE EXT PRN (03:19)
[2022-05-21 06:26] LABS: INR 1.8 (0.9-1.1); Prothrombin Time 18.8 Seconds (9.0-12.0)
[2022-05-21 06:42] LABS: Troponin I High Sensitivity 29.1 pg/ml (0-14)
[2022-05-21 06:45] LABS: BUN Creatinine Ratio 23.6 (10-20); Calcium 8.6 mg/dl (8.5-10.1); Creatinine Clr Calc Pharmacy 20.8 ml/min; Est GFR (African American) 22.2 ml/min; Est GFR (Non-African American) 19.1 ml/min; Potassium 4.7 mmol/L (3.5-5.1)
[2022-05-21 07:33] LABS: Estimated Average Glucose 137 mg/dl; Hemoglobin A1C 6.4 % (4.5-5.6)
--- NOTE | 2022-05-21 07:33 | Ultrasound Report ---
LEFT LOWER EXTREMITY VENOUS DOPPLER HISTORY: Left leg/knee swelling COMPARISON STUDY: None. FINDINGS: There is normal compressibility, flow, and augmentation within the left lower extremity negra p venous system. IMPRESSION: No DVT within the left lower extremity. ACT 112: Negative or not required by law. Electronically signed by: Alton Khan M.D. 05/21/2022 7:32 AM
--- NOTE | 2022-05-21 07:37 | XRay Report ---
XR knee LT 1 or 2V routine CLINICAL HISTORY: Extremity Trama. Left knee pain. COMPARISON STUDY: Left lower leg 07/18/2021. FINDINGS: There is a left total knee arthroplasty. The hardware is intact. No fracture or dislocation . Small left knee effusion. Mild diffuse soft tissue edema is noted. IMPRESSION: 1. No fractures within the left knee. 2. Mild soft tissue edema and a small left knee effusion. 3. Prior left total knee arthroplasty. ACT 112: Negative or not required by law. Electronically signed by: Alton Khan M.D. 05/21/2022 7:36 AM
[2022-05-21] MEDS ORDERED: cefTRIAXone SODIUM 1,000 MG in DEXTROSE 5% AD-VAN 50 ML IV SCH (07:45)
[2022-05-21] MEDS ORDERED: cefTRIAXone SODIUM 2,000 MG in DEXTROSE 5% 50 ML IV SCH (08:00)
[2022-05-21] MEDS ORDERED: FAMOTIDINE 20 MG TAB PO SCH (09:00)
[2022-05-21] MEDS ORDERED: LANTUS PER UNIT CHARGE SQ SCH (09:00)
[2022-05-21] MEDS ORDERED: SACCHAROMYCES BOULARDII 250 MG CAP PO SCH (09:00)
[2022-05-21] MEDS ORDERED: CHOLECALCIFEROL 5,000 UNITS 125 MCG TAB PO SCH (09:00)
[2022-05-21] MEDS ORDERED: METOPROLOL TARTRATE 50 MG TAB PO SCH (09:00)
[2022-05-21] MEDS ORDERED: MAGNESIUM CHLORIDE W/CALCIUM 64MG DELAYED REL TAB PO SCH (09:00)
[2022-05-21] MEDS: INSULIN ASPART PER UNIT SC SCH ×3 (10:07→17:59)
[2022-05-21] MEDS ORDERED: FERROUS SULFATE 325 MG TAB PO SCH (11:30)
--- NOTE | 2022-05-21 13:08 | XRay Report ---
XR chest 1V portable CLINICAL HISTORY: hypoxia TECHNIQUE: Single frontal radiograph of the chest was obtained. Comparison: Comparison is made to chest radiograph 02/14/2022 FINDINGS: No lines and tubes are seen. Cardiomegaly is noted. The aortic arch is calcified. The lungs are clear . No evidence of pleural effusion or pneumothorax. IMPRESSION: No acute abnormalities and in particular no evidence of pneumonia. Stable cardiomegaly. ACT 112: Negative or not required by law. Electronically signed by: Jerry De La Cruz M.D. 05/21/2022 1:07 PM
[2022-05-21 13:30] LABS: A calco-baum cmplx NotReported Not Detected (NotDetected); Bact fragilis Not Reported Not Detected (NotDetected); C auris Not Reported Not Detected (NotDetected); Calbicans Not Reported Not Detected (NotDetected); Candida glabrata Not Reported Not Detected (NotDetected); Candida krusei Not Reported Not Detected (NotDetected); Cneoformans/gatti Not Reported Not Detected (NotDetected); Cparapsilosis Not Reported Not Detected (NotDetected); Ctropicalis Not Reported Not Detected (NotDetected); E cloacae compx Not Reported Not Detected (NotDetected); Efaecalis Not Reported Not Detected (NotDetected); Efaecium Not Reported Not Detected (NotDetected); Enterobacterales Not Reported Not Detected (NotDetected); Escherichia coli Not Reported Not Detected (NotDetected); H influenzae Not Reported Not Detected (NotDetected); K aerogenes Not Reported Not Detected (NotDetected); Koxytoca Not Reported Not Detected (NotDetected); Kpneumoniae grp Not Reported Not Detected (NotDetected); Lmonocyt Not Reported Not Detected (NotDetected); N meningitidis Not Reported Not Detected (NotDetected); P aeruginosa Not Reported Not Detected (NotDetected); Proteus spp Not Reported Not Detected (NotDetected); Salmonella spp Not Reported Not Detected (NotDetected); Smarcescens Not Reported Not Detected (NotDetected); Staph lugdunensis Not Reported Not Detected (NotDetected); Staph spp. Not Reported Not Detected (NotDetected); Staphaureus Not Reported Not Detected (NotDetected); Staphepi Not Reported Not Detected (NotDetected); Stenmaltophilia Not Reported Not Detected (NotDetected); Strep agal(GrpB) Not Reported DETECTED (NotDetected); Strep pneum Not Reported Not Detected (NotDetected); Strep pyog (GrpA) Not Reported Not Detected (NotDetected); Strep spp Not Reported DETECTED (NotDetected); Streptococcus spp DETECTED (NotDetected)
[2022-05-21 13:57] LABS: Streptococcus agalactiae(GrpB) DETECTED (NotDetected)
[2022-05-21] MEDS ORDERED: WARFARIN SOD 1 MG TAB PO SCH (16:00)
--- NOTE | 2022-05-21 17:33 | Electrocardiogram Report ---
Test Reason : Blood Pressure : / mmHG Vent. Rate : 109 BPM Atrial Rate : 111 BPM P-R Int : 000 ms QRS Dur : 088 ms QT Int : 342 ms P-R-T Axes : 000 -39 014 degrees QTc Int : 460 ms Poor data quality, interpretation may be adversely affected Atrial fibrillation with rapid ventricular response Left axis deviation Abnormal ECG When compared with ECG of 14-FEB-2022 12:32, Nonspecific T wave abnormality, improved in Inferior leads Nonspecific T wave abnormality no longer evident in Anterior leads Confirmed by Raoul Alvarado ([id number]) on 05/21/2022 5:33:21 PM Referred By: REFERRED SELF Confirmed By:Garland Alvarado
[2022-05-21] MEDS: METOPROLOL TARTRATE 25 MG TAB PO ONE ×2 (17:44→18:00)
[2022-05-21] MEDS ORDERED: METOPROLOL TARTRATE 1 MG/ML VIAL IV STA (17:54)
[2022-05-21] MEDS ORDERED: METOPROLOL TARTRATE 1 MG/ML VIAL IV ONE (17:59)
[2022-05-21] MEDS ORDERED: NOREPINEPHRINE/D5W 4 MG/250 ML IV ONE (18:41)
[2022-05-21] MEDS ORDERED: NovoLIN-R INSULIN PER UNIT CHARGE ONE (18:42)
--- NOTE | 2022-05-21 18:46 | Emergency Department Note ---
ED Visit Note I was called to this patient's room for a CODE BLUE, patient reportedly became unresponsive, nurses were unable to obtain pulses and chest compressions were ongoing on my arrival into the room. Patient was ordered a dose of epinephrine, Ambu bag ventilation initiated, while ACLS protocol was ongoing multiple attempts were made at intubation with difficult visualization of the airway secondary to anterior anatomy and thick secretions in the airway. ET intubation was achieved on third attempt. Patient was given a second round of epinephrine as well as an amp of bicarb, on pulse check patient does have a carotid pulse, she is noted to be in a wide-complex tachycardia at a rate of 140 on the monitor at this time, care was then assumed by the on-call therapeutic recreation leader, Dr. Mitchell, who is at the bedside at this time. Endotracheal intubation: Rapid sequence intubation medications: none Utilizing glide scope sized 3 glide scope blade was advanced to the vallecula with poor visualization of the vocal cords on initial attempt secondary to anterior anatomy and secretions. Blade was removed and suction applied, on second attempt there remains significant mount accretions therefore Ambu bag ventilation was initiated again. On third attempt significant suctioning was applied and on revisualization on third attempt to the anterior portion of the vocal cords is visualized with cricoid pressure from the respiratory therapist. Size 7.5 endotracheal tube was advanced utilizing glide scope stylette and passed through the vocal cords under direct visualization. ET tube balloon was inflated. Appropriate color change was achieved with capnography. Breath sounds auscultated bilaterally following placement of the ET tube. Follow-up chest x-ray does confirm placement of the tube above the linda, small bilateral pneumothoraces were noted and ICU was contacted and is aware of this finding. .
[2022-05-21 18:50] LABS: iSTAT Creatinine 2.7 mg/dl (0.6-1.3); iSTAT Hemoglobin 12.9 g/dl (12.0-16.0); iSTAT Ionized Calcium 0.92 mmol/l (1.12-1.32); iSTAT Potassium 6.4 mmol/L (3.3-5.0)
--- NOTE | 2022-05-21 18:57 | Hospitalist Progress Note ---
Date of Service May 21, 2022 Assessment & Plan Admission and Anticipated Discharge Date Admission Date: May 21, 2022 Subjective Pt seen in follow up of LLE cellulitis, sepsis, SON on CKD, in room A9 in the ED. WBC 30K on admission and procalcitonin 15. She was started on daptomycin given her hx of recurrent LLE cellulitis per chart review. Doppler was obtained of LLE and negative for DVT. XR of left knee obtained and negative for any acute process. Blood cultures positive for gram positive cocci in chains. Added ceftriaxone to daptomycin, Repeated blood cultures. Notified pharmacy to make sure dose of daptomycin was appropriate for bacteremia (new indication instead of cellulitis). Throughout the day pt was tachycardic, discussed with RN in ED, usually low 100s, only bursts of 120s or so. BP 110s/80s. She was given PO metoprolol (home med) earlier. Obtained CXR today to make sure no fluid overload given hx of CKD. CXR negative. No pulm. edema or opacity/ no pna. On my evaluation pt sitting up in bed, RN at the bedside. RN reports episode of hypoglycemia and giving pt dextrose. RN reports pt could not have orange juice d/t nausea. Pt awake alert, able to answer simple questions appropriately. Reports she could not get out of bed at home and that's why she came to the hospital. She reports little better since she came to the hospital. Denies chest pain, shortness of breath , palpitations. Denies fever, chills. Reports nausea and LLE pain. Cervical collar applied. Tachycardic on physical exam. Per RN, due to nausea pt could not take PO metoprolol that I recently ordered - instead ordered 2.5 mg IV metoprolol. Discussed w/ RN to give gentle IV fluids as pt is nauseous and won't be able to eat. Lungs sounds somewhat diminished as pt is not taking deep breath. Abdomen soft, nontender, nondistended, +BS. purwick applied. Significant LE edema L>R. Excoriations noted over both LE extremities. Pt presents with SON on CKD - asked RN at the bedside to bladder scan, and monitor urine output closely. Later after my evaluation code purple, and then code blue was called. I came back to the ED immediately. ED physician present at the bedside, chest compressions ongoing. ICU physician then also immediately at the bedside and continued with further care (please see their notes in med. chart for further detail). I contacted patient's son Nicola over the phone and updated him. Nicola plans to come back to the hospital. MD Ulisses Results & Data Results & Data ([facility]) Vital Signs (Past 12 Hours) Vital Signs Temp Pulse Pulse Resp BP BP Pulse Ox 05/21/22 16:42 123 H 26 H 114/81 92 05/21/22 16:39 122 H 23 92 05/21/22 16:00 118 H 30 H 112/68 91 05/21/22 14:00 108 H 36 H 119/72 90 05/21/22 10:36 104 H 31 H 118/65 97 05/21/22 17:44 05/21/22 17:44 134 H 22 114/81 95 05/21/22 16:51 126 H 21 114/81 94 05/21/22 15:57 106 H 05/21/22 08:00 36.9 C 104 H 24 92 05/21/22 10:00 133 H 25 H 92 05/21/22 08:01 117/96 05/21/22 08:01 131 H 28 H 91 05/21/22 08:00 132 H 28 H 92 O2 Del Method 05/21/22 16:42 Room Air 05/21/22 16:39 Room Air 05/21/22 16:00 Room Air 05/21/22 14:00 Room Air 05/21/22 10:36 Room Air 05/21/22 17:44 Room Air 05/21/22 17:44 Room Air 05/21/22 16:51 Room Air 05/21/22 15:57 05/21/22 08:00 Room Air 05/21/22 10:00 Room Air 05/21/22 08:01 05/21/22 08:01 Room Air 05/21/22 08:00 Room Air
[2022-05-21] MEDS ORDERED: SODIUM BICARB 8.4% INJ 50 MEQ/50 ML SYR IV STA ×4 (19:27→20:41)
[2022-05-21] MEDS ORDERED: STAT IV Infusion **Titration per Protocol STA (19:31)
--- NOTE | 2022-05-21 19:32 | Procedure Note ---
Procedure Note Date of Service May 21, 2022 Note Procedure date: Noted above Procedure: Central venous access Pre-procedure indication: CODE BLUE lack of venous access Post-procedure Diagnosis: same as above Prior to Procedure: Informed Consent: Emergent consent implied Attending Staff: Jony Mitchell DO Resident/APC: [Not applicable] Skin Prep: Chlorhexidine Anesthesia: None Description of Procedure: Patient was in cardiac arrest and extremis. The left subclavian area was cleaned with ChloraPrep. The target vessel was identified and entered with an 18-gauge needle. Dark venous blood return was noted. A guidewire was inserted through the needle and into the vessel. The needle was withdrawn and a skin aileen was made. A tissue dilator was advanced via Seldinger technique and removed. A triple lumen catheter was inserted via Seldinger technique and the guidewire removed. All ports luna and flushed easily. A Biopatch was placed, and the catheter was secured via silk suture. A sterile dressing was then applied. Complications: None apparent Estimated blood loss: Trace Patient tolerated the procedure well. Coding CPT Codes Tubes, Drains, and Vasc Access - Tubes, Drains, and Vasc Access: [id number] Insertion Of Non-tunneled Catheter Age 6 Yrs> ([id number]) [facility] [place]Charges) Tubes, Drains, and Vasc Access Procedure 1: Tubes, Drains, and Vasc Access: [id number] Insertion Of Non-tunneled Catheter Age 6 Yrs>
--- NOTE | 2022-05-21 19:35 | Procedure Note ---
Procedure Note Date of Service May 21, 2022 Note Procedure date: Noted above Procedure: Axillary artery cannulation Pre-procedure Diagnosis: Need for invasive monitoring, CODE BLUE, inability to adequately feel pulse secondary to body habitus Post-procedure Diagnosis: same as above Prior to Procedure: Informed Consent: Emergent consent implied Attending Staff: Jony Mitchell DO Skin Prep: Chlorhexidine Anesthesia: None Description of Procedure: After sterile prep with chlorhexidine left axillary artery was identified via dynamic ultrasound guidance and entered with a 20- gauge arrow Angiocath. Pulsatile bright red blood return was noted. Via modified Seldinger technique the self-contained guidewire was advanced and the Angiocath advanced over the guidewire. The guidewire was removed and brisk arterial blood return was noted. The pressure monitor was connected, and the arterial line was secured via silk suture. A sterile dressing was then applied. Complications: None Estimated blood loss: Trace Patient tolerated the procedure well. Coding CPT Codes Tubes, Drains, and Vasc Access - Tubes, Drains, and Vasc Access: [id number] Place Catheter In Artery ([id number]) [facility] [place] Codes (Charges) Tubes, Drains, and Vasc Access Procedure 1: Tubes, Drains, and Vasc Access: [id number] Place Catheter In Artery
--- NOTE | 2022-05-21 19:37 | Procedure Note ---
Procedure Note Date of Service May 21, 2022 Note Procedure date: Noted above Procedure: Femoral artery cannulation: Procedure aborted Pre-procedure Diagnosis: CODE BLUE hypotension Post-procedure Diagnosis: same as above Prior to Procedure: Informed Consent: Emergent consent implied Attending Staff: Jony Mitchell DO Skin Prep: Chlorhexidine Anesthesia: None Description of Procedure: Patient's left groin was prepped with ChloraPrep. Utilizing dynamic ultrasound guidance is able to visualize the femoral artery. I was able to pass the catheter into the lumen of the artery however I was unable to pass the guidewire successfully into the catheter. This was likely secondary to body habitus in the groin. After 3 individual attempts the procedure was aborted and we moved to the axillary artery. Pressure was held in the groin and there was no obvious hematoma. Complications: None Estimated blood loss: Trace Coding CPT Codes Tubes, Drains, and Vasc Access - Tubes, Drains, and Vasc Access: [id number] Place Ca theter In Artery ([id number]) [facility] [place] Procedure Codes (Charges) Tubes, Drains, and Vasc Access Procedure 1: Tubes, Drains, and Vasc Access: [id number] Place Catheter In Artery (Aborted procedure)
[2022-05-21] MEDS ORDERED: NOREPINEPHRINE/D5W 4 MG/250 ML PLCT IV SCH (19:45)
[2022-05-21] MEDS ORDERED: VASOPRESSIN 20 UNITS in 0.9 % SODIUM CHLORIDE 100 ML IV SCH (19:45)
--- NOTE | 2022-05-21 19:48 | XRay Report ---
SINGLE VIEW CHEST CLINICAL HISTORY: Cardiac arrest. Respiratory failure. Resuscitation. FINDINGS: 2 AP, portable, supine chest radiographs are compared to study dated 05/21/2022 and correla chayo with chest CT dated 02/14/2022. The examination is degraded by portable technique and patient rota tion. An endotracheal tube is been placed. The tip projects approximately 2.5 cm above the linda. An enteric tube has been placed. This extends below the diaphragm and the tip is not visualized. A left subclavian central venous catheter has been placed. The tip of the catheter projects over the SVC. T he heart is enlarged noting atherosclerotic calcification of the thoracic aorta. There is pulmonary v ascular congestion. There are increasing bilateral airspace opacities, greatest in the right upper lo be and at the left lung base. There are small to moderate left and small right pneumothoraces. There is approximately 0.5 cm of pleural separation on the right. There is approximately 2.5 cm pleural sep aration at the left lung base. The skeletal structures are osteopenic. There are healed left-sided ri b fractures. There are also likely acute bilateral rib fractures. IMPRESSION: 1. Small right and [id number] left pneumothoraces as above. 2. Line and tube placement as above. 3. Suspect acute bilateral rib fractures. 4. Cardiomegaly. Pulmonary vascular congestion is new from previous. 5. There are multifocal bilateral airspace opacities, which are new from previous and could represent developing pulmonary edema and/or an infectious/inflammatory pneumonitis. Clinical correlation will be required. ACT 112: Negative or not required by law. Electronically signed by: Reed Chapman M.D. 05/21/2022 7:45 PM
[2022-05-21 19:56] LABS: Alanine Aminotransferase 237 U/L (7-52); Albumin Globulin Ratio 0.7 (0.9-2); Albumin Level 2.6 gm/dl (3.4-5.0); Alkaline Phosphatase 301 U/L (34-104); Anion Gap 21 (3-11); BUN Creatinine Ratio 23.2 (10-20); Bilirubin,Total 1.1 mg/dl (0.2-1.0); Blood Urea Nitrogen 59 mg/dl (6-23); Calcium 7.9 mg/dl (8.5-10.1); Carbon Dioxide 21 mmol/L (21-32); Chloride 101 mmol/L (98-107); Creatinine Clr Calc Pharmacy 19.1 ml/min; Est GFR (Non-African American) 17.2 ml/min; Globulin 3.5 gm/dl (2.5-4.0); Glucose 66 mg/dl (70-99(Fasting)); Lipase 54 U/L (11-82); Potassium 6.6 mmol/L (3.5-5.1); Sodium 143 mmol/L (136-145); Total Protein 6.1 gm/dl (6.0-8.3)
[2022-05-21 20:05] LABS: Acanthocytes 2+; Basophils # (auto) 0.08 K/uL (0-0.2); Basophils % (auto) 0.4 %; Echinocytes 3+; Eosinophils # (auto) 0.06 K/uL (0-0.50); Eosinophils % (auto) 0.3 %; Hematocrit (blood only) 31.9 % (34.1-44.9); Hemoglobin 9.4 g/dl (12.0-16.0); Immature Granulocytes % (auto) 4.5 %; Lymphocytes # (auto) 2.79 K/uL (1.2-3.4); Lymphocytes % (auto) 12.5 %; Mean Corpuscular Hemoglobin 28.3 pg (25.0-34.0); Mean Corpuscular Hgb Conc 29.5 g/dL (32.0-36.0); Mean Corpuscular Volume 96.1 fL (80.0-100.0); Mean Platelet Volume 12.4 fL (9.4-12.3); Monocytes # (auto) 0.48 K/uL (0.24-0.82); Monocytes % (auto) 2.1 %; Neutrophils # (auto) 17.94 K/uL (1.4-6.5); Neutrophils % (auto) 80.2 %; Nucleated RBC # (auto) 0.19 K/uL (0-0); Nucleated RBC % (auto) 0.9 %; Platelet Count 207 K/uL (130-400); RDW Standard Deviation 57.1 fL (36.4-46.3); Red Blood Count 3.32 M/uL (3.93-5.22); White Blood Count 22.35 K/ul (4.8-10.8)
[2022-05-21 20:07] LABS: Fibrinogen 522 mg/dl (184-400); INR 3.4 (0.9-1.1); Prothrombin Time 33.5 Seconds (9.0-12.0)
[2022-05-21 20:08] LABS: Troponin I High Sensitivity 236.6 pg/ml (0-14)
--- NOTE | 2022-05-21 20:12 | CT Scan Report ---
CT SCAN OF THE CERVICAL SPINE CLINICAL HISTORY: Cardiac arrest. Known C2 fracture. COMPARISON STUDY: CT of the cervical spine dated 02/14/2022. TECHNIQUE: CT scan of the cervical spine is performed from the skull base to the upper thoracic spine . Images are reviewed in the axial, sagittal, and coronal planes. IV contrast was not administered fo r this examination. A dose lowering technique was utilized adhering to the principles of ALARA. FINDINGS: Skeletal structures: The skeletal structures are osteopenic. A subacute and mildly displaced type III odontoid fracture is unchanged in alignment from previous. Residual fracture lucency remains. There is approximately 4 mm of offset of the largest fragments. There is no evidence of acute fracture or s ubluxation involving the cervical spine. Vertebral body height and alignment are maintained. There is straightening of the cervical lordosis. Anterior osteophytes are seen throughout. The atlantoaxial a rticulation is preserved noting productive degenerative change. The spinous processes appear intact. There is moderate multilevel cervical spondylosis. Uncovertebral and facet arthropathy contribute to foraminal narrowing at most levels. Acute left-sided rib fractures are partially imaged. Intervertebral discs: Moderate marked disc space narrowing is seen at all cervical levels. Central canal: Posterior disc osteophyte complexes are seen at all cervical levels between C3-C4 and C7-T1. This likely contributes to multilevel acquired compromise of the central canal. Soft tissues: The prevertebral and paraspinous soft tissues are within normal limits. An enteric tube is in place. A left subclavian central venous catheter is noted. Calvarium: The visualized calvarium at the skull base appears intact. Brain parenchyma: Partially visualized brain parenchyma at the skull base is within normal limits. Sinuses and mastoids: The visualized paranasal sinuses are clear. The mastoid air cells are well pneu matized. Lung apices: An endotracheal tube is in place. Bilateral pneumothoraces are observed. Intralobular se ptal thickening is seen throughout the upper lobes and there are bilateral airspace opacities. A left pleural effusion is partially imaged. IMPRESSION: 1. A subacute/healing type III odontoid fracture is unchanged in alignment as compared to 02/14/2022. There is residual fracture lucency. 2. No acute fracture or subluxation is seen involving the cervical spine. 3. Osteopenia and spondylotic change as above. 4. Bilateral pneumothoraces. 5. There is evidence of congestive failure in the upper lobes and a left pleural effusion is partiall y imaged. 6. Bilateral airspace opacities likely present pulmonary edema. 7. Acute left-sided rib fractures are partially imaged. ACT 112: Negative or not required by law. Electronically signed by: Reed Chapman M.D. 05/21/2022 8:09 PM
--- NOTE | 2022-05-21 20:14 | CT Scan Report ---
CT SCAN OF THE BRAIN WITHOUT IV CONTRAST CLINICAL HISTORY: Change in mental status. Cardiac arrest. COMPARISON STUDY: CT of the brain dated 02/14/2022. TECHNIQUE: Unenhanced axial CT scan of the brain is performed from the vertex to the skull base. A do se lowering technique was utilized adhering to the principles of ALARA. The Examination is severely d egraded by motion artifact. The patient was scanned 3 times in an effort to improve image quality. FINDINGS: Brain parenchyma: There is age-related involutional change noting mild subcortical and periventricula r microangiopathic disease. There is no hemorrhage, mass effect, or evidence of acute territorial isc hemia by CT criteria. Samaniego-white matter differentiation is preserved. No extra-axial fluid collection is seen. Ventricles, sulci, cisterns: Prominent secondary to involutional change. Intracranial vasculature: There is atherosclerotic calcification of the cavernous carotid and vertebr al arteries. Calvarium: Unremarkable. Sinuses and mastoids: The visualized paranasal sinuses are clear. The mastoid air cells are well pneu matized. Orbits: The bony orbits are grossly intact. There are bilateral ocular lens implants. IMPRESSION: There is no hemorrhage, mass effect, or evidence of acute territorial ischemia by CT geoffreyt elyssa. ACT 112: Negative or not required by law. Electronically signed by: Reed Chapman M.D. 05/21/2022 8:13 PM
--- NOTE | 2022-05-21 20:39 | CT Scan Report ---
CT SCAN OF THE CHEST, ABDOMEN, AND PELVIS WITHOUT IV CONTRAST CLINICAL HISTORY: Cardiac arrest. Resuscitation. COMPARISON STUDY: Chest x-ray dated 05/21/2022. CT scan of the chest, abdomen, and pelvis dated 02/14. TECHNIQUE: Unenhanced CT scan of the chest, abdomen, and pelvis was performed from the thoracic inlet to the proximal femora. Images are reviewed in the axial, sagittal, and coronal planes. IV contrast was not administered for this examination. Note that the examination was performed and significant brizuela boptimal fashion without contrast. The Examinations are also significantly degraded by streak from th e arms which could not be elevated above the chest or abdomen, as well as streak artifact in the body wall density injury. There is also motion artifact. A dose lowering technique was utilized adhering to the principles of ALARA. CT DOSE: 5094.21 mGy.cm FINDINGS: CHEST: Thyroid: Imaged portions of the thyroid gland are normal in size and attenuation. Thoracic aorta: There is evident sclerotic calcification of the thoracic aorta, which is normal in ca liber and demonstrates standard 3-vessel arch anatomy. Heart: A left subclavian central venous catheter is in place. The heart is enlarged and without peric ardial effusion. The coronary arteries are densely calcified. Lungs and pleural spaces: An endotracheal tube terminates above the linda. Evaluation of the lung pa renchyma is degraded by motion artifact. There are moderate left and small right pneumothoraces which extend from the apices to the lung bases. Intralobular septal thickening indicates fluid overload/co ngestive failure. There is a small volume of left hemothorax. Trace pneumothorax is seen on the right . Multifocal airspace consolidation is seen throughout both lungs, most confluent in the right upper lobe and at the left lung base. The trachea and central airways appear clear. Mediastinum: There is no mediastinal hematoma or lymphadenopathy. Jaimee: Not well assessed without contrast. Axillae: There is no axillary lymphadenopathy. Bony thorax: The skeletal structures are osteopenic. There is a minimally depressed and subacute-appe aring fracture involving the manubrium of the sternum. This is new from 02/14/2022. There are acute le ft anterior 2nd through 8th rib fractures. There is acute anterior right 2nd rib fracture, as well as acute right lateral 3rd through 8th rib fractures. Additional subacute or chronic rib fractures are seen bilaterally. There is an acute appearing oblique fracture seen extending through the anterior sabiha dy of T10. This likely involves the T9-T10 disc space. This does not clearly involve the posterior el ements. No retropulsed fragments are identified. Mild paravertebral edema is noted. No lytic or blast ic lesions are identified. Soft tissues: Extrapleural gas is present in the left chest wall. ABDOMEN AND PELVIS: Liver: Evaluation of the liver is significantly degraded by streak artifact. The unenhanced liver is grossly normal in size, contour, and attenuation. There is no intrahepatic biliary ductal dilatation. Gallbladder: Unremarkable. Spleen: Normal in size and attenuation. Pancreas: The unenhanced pancreas is atrophic and grossly unremarkable. Adrenal glands: Unremarkable. Kidneys: The unenhanced kidneys demonstrate cortical atrophy and are without hydronephrosis. No renal calculi are identified. There is no evidence of contour deforming renal mass lesion. Abdominal vasculature: The abdominal aorta is normal in course and caliber noting advanced atheroscle rotic calcification. Bowel: Enteric tube terminates in the stomach. There is no bowel obstruction. The appendix is well-v isualized and normal. Peritoneum/retroperitoneum: There is trace free fluid in the pelvis. No intraperitoneal free air is i dentified. There is a small amount of right-sided retroperitoneal hemorrhage between the right kidney and the psoas muscle. This is best seen on axial image #170. Lymphadenopathy: None. Pelvic viscera: The bladder is decompressed around a Fontana catheter and not well assessed. The uterus is surgically absent. A 3 cm cystic lesion in the left adnexa is unchanged from previous and likely related to the left ovary. Skeletal structures: The skeletal structures are osteopenic. A chronic inferior endplate compression deformity of L1 is again noted. The proximal femora and bony pelvis appear intact. There is moderate to advanced sacral spondylosis. No lytic or blastic lesions are seen. Soft tissues: There is body wall edema. IMPRESSION: 1. Significantly suboptimal examination without IV contrast. There is also significant streak and mot ion artifact. 2. There are numerous acute bilateral rib fractures as above. 3. Small right and moderate left pneumothoraces. 4. There is a subacute appearing and minimally depressed manubrial fracture. This is new from 02/15/20 22. 5. There is an acute appearing oblique fracture through the anterior body of T10. This likely involve s the T9-T10 disc space. No retropulsed fragments are identified and this does not appear to involve the posterior elements. 6. Bilateral hemothorax, left larger than right. 7. Cardiomegaly with evidence of fluid overload/congestive failure. 8. Bilateral airspace opacities likely present pulmonary edema. Clinical clinically for evidence of a superimposed pneumonia or aspiration pneumonitis. 9. There is a small amount of right sided retroperitoneal hemorrhage between the right kidney and the psoas muscle. The source of the hemorrhage is not delineated. 10. There is no clear evidence of solid organ injury in the abdomen or pelvis in this unenhanced exam ination. 11. Trace free fluid is seen in the pelvis. 12. Lines and tubes as above. 13. Additional findings as above ACT 112: Negative or not required by law. Electronically signed by: Reed Chapman M.D. 05/21/2022 8:37 PM
[2022-05-21] MEDS ORDERED: STAT IV STA (20:41)
[2022-05-21 20:43] LABS: Albumin Globulin Ratio 0.7 (0.9-2); Albumin Level 2.5 gm/dl (3.4-5.0); BUN Creatinine Ratio 21.8 (10-20); Bilirubin,Total 1.1 mg/dl (0.2-1.0); Calcium 8.4 mg/dl (8.5-10.1); Creatinine Clr Calc Pharmacy 18.9 ml/min; Est GFR (African American) 19.7 ml/min; Globulin 3.6 gm/dl (2.5-4.0); Magnesium 2.5 mg/dl (1.7-2.4); Potassium 6.6 mmol/L (3.5-5.1); Total Protein 6.1 gm/dl (6.0-8.3)
[2022-05-21] MEDS ORDERED: SODIUM BICARBONATE 8.4% 150 MEQ in DEXTROSE 5% 1,000 ML IV SCH (20:45)
[2022-05-21] MEDS ORDERED: PANTOprazole 40 MG TAB PO SCH (21:00)
[2022-05-21 21:09] LABS: Partial Thromboplastin Time 81.7 Seconds (21.0-31.0)
--- NOTE | 2022-05-21 21:19 | Critical Care Consultation ---
Date of Consultation May 21, 2022 Assessment & Plan (1) Cardiac arrest: 81-year-old female with multiple comorbidities under going treatment as inpatient for severe sepsis from a cellulitis of the left lower extremity. Patient experienced cardiac arrest in which the ICU team responded. ROSC was achieved following CPR with epinephrine and bicarb drips. Patient was found to be in acute renal failure with severe metabolic acidosis and lactate of 10. She was unresponsive and hemodynamically unstable following ROSC and was intubated and central line and A-line inserted. She underwent CT head, neck, chest, and abdomen and pelvis prior to arrival to the ICU. She was found to have bilateral pneumothorax and became increasingly unstable. She experienced additional cardiac arrest and was again resuscitated with CPR and epinephrine. She was on multiple vasopressors with norepinephrine and epinephrine and bicarb drip. She became increasingly unstable and underwent emergent bilateral needle decompression which seemed to temporarily improve hemodynamics. Bilateral chest tubes were then inserted and revealed large bilateral hemothorax. Patient continued to decompensate and became increasingly unstable. She again experienced PEA arrest and further resuscitative measures were ceased as her condition was determined to be nonsurvivable and further resuscitative measures would be futile. Patient was pronounced at 0 with family present outside the room. (2) Acute and chronic respiratory failure with hypoxia: Worsened following cardiac arrest likely due to pulmonary edema and bilateral pneumothoraxes shown on CT. Underwent intubation and bilateral chest tube insertion with drainage of pneumothoraxes and hemothorax was. ABG showed hypercapnia following intubation and ventilator was appropriately adjusted. (3) Sepsis: Blood cultures positive x1 set for GPC in chains. Was undergoing treatment with daptomycin and ceftriaxone (4) Acute renal failure superimposed on stage 4 chronic kidney disease: SON appeared to be improving but most recent BMP showed hyperkalemia which may be attributed to severe metabolic acidosis as patient did have lactate of 10. She did receive insulin with D10 and bicarb. She had been started on a bicarb drip. Lactic acidosis continued to worsen and had increased to 18 following multiple cardiac arrest. 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 Lower extremity Doppler negative for DVT (9) Diastolic CHF: Last echo in November with normal EF, severely dilated right ventricle and atrium. Plan CRITICAL CARE TIME - I have personally spent 105 minutes of critical care time in the direct management of this patient. This is a life/limb threatening event. This includes time spent evaluating patient, direct bedside care, chart review, placing orders, interpretation of diagnostic studies, discussion with consultants, patient, and family members, as well as other required patient management activities. This time is exclusive of all separately billable procedures, and teaching time and separate from and in addition to any other critical care service time. History of Present Illness Attending Physician: Todd Gtz MD History of Present Illness 81-year-old female with past medical history atrial fibrillation (on Coumadin), diastolic CHF, tackybradycardia syndrome, DM type II, CKD stage III, COPD (4 L nasal cannula at bedtime), and HLD presented to the emergency department with d ifficulty ambulating for 1 day and reported lower extremity pain. She was admitted to the emergency department and undergoing treatment for severe sepsis from cellulitis with positive blood cultures for gram-positive cocci in chains. ICU team responded to CODE BLUE at the patient's bedside. ROSC was achieved following chest compressions and epinephrine and bicarb push. Repeat lab work showed acute renal failure and significant metabolic acidosis with lactate of 10. Patient was unstable and unresponsive following ROSC and was intubated and central line and A-line placed. She was started on Levophed, epinephrine, and bicarb drips. She underwent CT head, neck, chest, and abdomen and pelvis. CT chest did reveal bilateral pneumothorax and she underwent bilateral chest tube insertion following a second cardiac arrest in the ICU. Unfortunately patient's clinical status continued to decompensate and she was requiring higher doses of vasopressors and becoming increasingly unstable. She soon entered PEA rhythm and further resuscitative measures were stopped as her clinical status was determined to be nonsurvivable and further efforts would be futile. See note for further details. Allergies Allergy/AdvReac Type Severity Reaction Status Date / Time metformin Allergy Severe EDEMA FACE Verified 02/14/22 13:04 AND HANDS, ITCHY ciprofloxacin Allergy Intermediate RASH Verified 02/14/22 13:04 clindamycin Allergy Intermediate RASH Verified 02/14/22 13:04 pollen extracts Allergy Mild RUNNY NOSE Verified 02/14/22 13:04 Cephalosporins Allergy Unknown Unknown Verified 02/14/22 13:04 montelukast [From [facility]] Allergy Unknown CAN'T Verified 02/14/22 13:04 REMEMBER Penicillins Allergy Unknown CAN'T Verified 02/14/22 13:04 REMEMBER Sulfa (Sulfonamide Allergy Unknown CAN'T Verified 02/14/22 13:04 Antibiotics) REMEMBER Home Medications Medication Instructions Recorded Confirmed Type acetaminophen 325 mg tablet 650 mg PO Q4H PRN pain #60 tabs 02/18/22 05/21/22 Rx cholecalciferol (vitamin D3) 125 5,000 unit PO QAM #30 tabs 02/18/22 05/21/22 Rx mcg (5,000 unit) tablet famotidine 20 mg tablet 20 mg PO QAM #30 tabs 02/18/22 05/21/22 Rx insulin aspart U-100 100 unit/mL 1 sliding scale dose subcut AC #15 02/18/22 05/21/22 Rx (3 mL) subcutaneous pen (Novolog mL Flexpen U-100 Insulin aspart) insulin glargine 100 unit/mL (3 15 units (0.15 mL) subcut HS #15 mL 02/18/22 05/21/22 Rx mL) subcutaneous pen magnesium chloride 64 mg 128 mg PO DAILY #30 tabs 02/18/22 05/21/22 Rx (magnesium chloride) tablet,delayed release (Mag 64) metoprolol tartrate 50 mg tablet 50 mg PO AMHS #60 tabs 02/18/22 05/21/22 Rx simvastatin 20 mg tablet 20 mg PO HS #30 tabs 02/18/22 05/21/22 Rx Saccharomyces boulardii 250 mg 250 mg PO BID 05/21/22 05/21/22 History capsule (Florastor) albuterol sulfate 90 mcg/actuation 1 puff inhalation Q4H PRN 05/21/22 05/21/22 History aerosol inhaler (Ventolin HFA) Shortness Of Breath Or Wheezing clobetasol 0.05 % topical cream 1 applic topical BID PRN SKIN 05/21/22 05/21/22 History IRRITATION ON LEGS ferrous sulfate 325 mg (65 mg 325 mg PO QDL 05/21/22 05/21/22 History iron) tablet,delayed release furosemide 20 mg tablet 10 mg QAM 05/21/22 05/21/22 History ipratropium bromide 17 2 puff inhalation Q6H PRN 05/21/22 05/21/22 History mcg/actuation HFA aerosol inhaler Shortness Of Breath (Atrovent HFA) menthol 0.44 %-zinc oxide 20.6 % 1 applic topical QID PRN NEEDED 05/21/22 05/21/22 History topical ointment (Calmoseptine) PER [facility] omeprazole 20 mg capsule,delayed 20 mg PO HS 05/21/22 05/21/22 History release spironolactone 25 mg tablet 25 mg PO DAILY 05/21/22 05/21/22 History warfarin 2 mg tablet 1 mg PO .DAILY @ 1600 05/21/22 05/21/22 History Patient History Medical History A-fib Cellulitis CKD (chronic kidney disease) stage 3, GFR 30-59 ml/min COPD (chronic obstructive pulmonary disease) Diastolic CHF DM type 2 (diabetes mellitus, type 2) Dyslipidemia Hypomagnesemia Hypoxemic respiratory failure, chronic Nocturnal hypoxemia Obesity hypoventilation syndrome Osteoarthritis Pacemaker infection s/p removal Sepsis Staphylococcus aureus bacteremia Tachycardia-bradycardia syndrome Type 2 diabetes mellitus Surgical History History of cataract surgery History of hysterectomy History of total left knee replacement S/P adenoidectomy Family History Mother Diabetes Heart disease Social History Smoking Status: Former smoker Tobacco Type: Cigarettes Second Hand Exposure: No; Hx Alcohol Use: No Hx Substance Use: No Preferred Language: Mongolian Communication Ability: Effective Visual Impairment: No Limitations Hearing Ability: Normal Procurement Clerk Required: No Beliefs That Will Affect Care: None marital status: / Current Living Situation: Alone Current Living Situation Comment: mobile home current occupational status: retired How many Children do You have: 1 Feels Safe at Home: Yes Assistive Devices: Cane, Denture - Upper, Denture - Lower, Glasses, Nebulizer, Oxygen - Continuous, Scooter/Electric Scooter and Walker Review of Systems Review of Systems: Unobtainable due to cognitive status and Unobtainable due to endotracheal tube Physical Exam Constitutional: + obese Unresponsive, mottled Eyes: PERRL, conjunctivae normal, anicteric sclerae ENMT: external ear and nose normal, oropharynx normal Neck: trachea midline, no thyromegaly Respiratory: Bilateral breath sounds diminished, symmetrical chest wall movement, subcutaneous air noted on the anterior chest bilaterally and around the neck. Cardiovascular: Tachycardic, S1-S2 auscultated, heart sounds diminished, no edema, no JVD Gastrointestinal (Abdomen): normal bowel sounds, soft, nontender, no hepatosplenomegaly Skin: All 4 extremities cool to touch, skin pallor and mottled in general Neurologic: Unresponsive, no movement or response to stimuli, PERRLA Psychiatric: Unable to assess Genitourinary: Indwelling Fontana catheter Results & Data Results & Data ([facility]) Vital Signs (Past 12 Hours) Vital Signs Pulse Pulse Resp BP BP Pulse Ox O2 Del Method 05/21/22 18:20 22 05/21/22 16:42 123 H 26 H 114/81 92 Room Air 05/21/22 16:39 122 H 23 92 Room Air 05/21/22 16:00 118 H 30 H 112/68 91 Room Air 05/21/22 14:00 108 H 36 H 119/72 90 Room Air 05/21/22 10:36 104 H 31 H 118/65 97 Room Air 05/21/22 17:44 Room Air 05/21/22 17:44 134 H 22 114/81 95 Room Air 05/21/22 16:51 126 H 21 114/81 94 Room Air 05/21/22 15:57 106 H 05/21/22 10:00 133 H 25 H 92 Room Air FiO2 05/21/22 18:20 100 05/21/22 16:42 05/21/22 16:39 05/21/22 16:00 05/21/22 14:00 05/21/22 10:36 05/21/22 17:44 05/21/22 17:44 05/21/22 16:51 05/21/22 15:57 05/21/22 10:00 Coding Level of Care Code Critical Care ea addt'l 30 min Diagnoses Cardiac arrest I46.9 Acute and chronic respiratory failure with hypoxia J96.21 Sepsis A41.9 Acute renal failure superimposed on stage 4 chronic kidney disease N17.9; N18.4 Cellulitis of left leg L03.116 Elevated troponin R77.8 Odontoid fracture S12.110A 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
--- NOTE | 2022-05-21 21:19 | Procedure Note ---
Procedure Note Date of Service May 21, 2022 Coding
--- NOTE | 2022-05-21 21:20 | Procedure Note ---
Procedure Note Date of Service May 21, 2022 Note Chest Tube PLACEMENT NOTE: Procedure:Chest Tube Placement Attending: Dr. Ranjan Mitchell Provider: TRACI Childers Indication: Tension pneumothorax Anesthesia: None Line placed emergently following cardiac arrest with developing pneumothorax and hemothorax. Prior to procedure, chest x-ray films were reviewed by myself and demonstrated bilateral pneumothorax and hemothorax. A time-out was completed verifying correct patient, procedure, site, positioning, and implant(s) or special equipment. Location between the third and fourth ribs were marked on the skin using gentle pressure. The left sided chest wall was prepped with chlorhexidine and draped in the typical sterile fashion. Scalpel was used to make small incision of the superficial tissue, parallel to the direction of the rib anatomy at the midaxillary line at the level of the 4th rib. A finger was inserted towards the second and third rib space and inserted bluntly into the chest cavity. Blood and air were noted from the pleural space. The disruption in the p arietal pleura was expanded bluntly and a finger was swept in all directions. A 24 Azeri chest tube was advanced to 14 cm using my finger as a guide with Emilie clamps and directed superiorly. Entry into the pleural space was heralded by blood and air return on insertion. Chest tube was immediately connected to pre- prepared MIRELA pleur-evac system and bloody drainage of approximately 100 mL was noted. Chest tube was sutured securely in place and sterile dressing was applied. Chest tube was placed to -20 cmH2O suction. No immediate complications noted as result of procedure. No post procedure Chest X-ray was ordered as patient shortly . Coding CPT Codes Pulmonary/Thoracic - Pulmonary and Thoracic: 55917 Tube thoracostomy ([id number]) [facility] [place] Procedure Codes (Charges) Pulmonary/Thoracic Procedure 1: Pulmonary and Thoracic: 58726 Tube thoracostomy
[2022-05-21] MEDS ORDERED: Flu Vaccine-High Dose (Fluzone-HD) PF 65+ 0.7mL SYR IM ONE (21:45)
--- NOTE | 2022-05-21 21:54 | Death Pronouncement Note ---
Date of Service May 21, 2022 Pronouncement Note Admission Date Admission Date: May 21, 2022 Contributing Factors (1) Severe sepsis: Hospital Course Hospital Course: PRONOUNCEMENT NOTE - Date: 05/21/2022 Time: 2109 I was at the bedside at the time of cardiac arrest following a CODE BLUE. In short, patient was undergoing treatment for severe sepsis and SON after being admitted to the hospital last night. ICU team responded to a CODE BLUE in which the patient underwent several rounds of CPR with chest compressions and epinephrine and bicarb. Following ROSC patient had underwent intubation, central line and A-line placement and was transferred to the ICU on multiple vasopressors and a bicarb drip. Lab work revealed acute renal failure and severe metabolic acidosis. She again arrested in the ICU but again achieved ROSC after 1 round of compressions with epinephrine and bicarb push. Patient continued to become increasingly unstable. CT chest showed bilateral pneumothorax and hemothorax and she underwent bilateral chest tube insertion. Patient soon arrested again and decision was made to stop CPR and further resuscitative measures as at this point the patient's condition was nonsurvivable and further resuscitative measures were futile. Patient was pronounced at 2109 and family was notified at the bedside. Assessment: Time of : 2109 as pronounced by myself. Family present at bedside. Appropriate response to grief appreciated. Condolences provided. Questions were addressed and emotional support was provid ed. Patients primary service was contacted and made aware of patient demise. Pronouncement section of the Certificate was filled out and signed by myself. Cause of : Primary -septic shock Secondary -acute renal failure Contributing Causes of -high anion gap metabolic acidosis, tension pneumothorax, hemothorax, CKD, A. fib RVR Please feel free to contact me with any questions regarding the above-mentioned course. Additional Data Attending physician: Todd Gtz MD Coding Level of Care Code None Diagnoses Severe sepsis A41.9; R65.20
[2022-05-21] MEDS ORDERED: FLUMAZENIL 0.1 MG/1 ML 10 ML VIAL IV ONE (23:23)
[2022-05-21] MEDS ORDERED: ATROPINE SULFATE 0.1 MG/ML 10ML SYR IV ONE (23:23)
[2022-05-21] MEDS ORDERED: AMIODARONE HCL INJ 50 MG/ML 3 ML VIAL IV ONE (23:23)
[2022-05-21] MEDS ORDERED: SODIUM BICARB 8.4% INJ 50 MEQ/50 ML SYR IV ONE ×3 (23:23)
[2022-05-21] MEDS ORDERED: SODIUM CHLORIDE 0.9% 10ML FLUSH IV ONE ×3 (23:23)
[2022-05-21] MEDS ORDERED: CALCIUM CHLORIDE 10% 10 ML SYR IV ONE ×2 (23:23)
[2022-05-21] MEDS ORDERED: DEXTROSE 50% 50 ML SYRINGE IV ONE (23:23)
--- NOTE | 2022-05-21 23:37 | Communication Note ---
Date of Service: May 21, 2022 80 yo F with PMHx of recurrent lower extremity cellulitis, A. fib on coumadin, diastolic CHF, tachy-job syndrome, DM type II, CKD stage III, COPD on 4 L oxygen as needed and at bedtime, HLD presented to the ED 05/20 due to acute onset left lower extremity pain and difficulty ambulating for 1 day, was found to be in severe sepsis at presentation. Pt coded in the evening prior to my shift, was transferred to ICU following ROSC and was intubated. Per day team progress note, family was made aware. Pt coded again in the ICU 2 more times w/ several rounds of cpr, epi and bicarb. CT chest showed b/l pneumothorax and hemothorax; pt underwent b/l chest tube placement. Her 3rd code in the icu was soon after chest tube placement and decision was mad e to stop CPR/resuscitative efforts due to the efforts being deemed futile given her clinical deterioration. Pt's family (son Bart) was made aware. Pt pronounced at 2110 hrs on 05/21/22 by ICU team.
--- NOTE | 2022-05-22 07:52 | Procedure Note ---
Procedure Note Date of Service May 21, 2022 Note Procedure date: Noted above Procedure: Cardiopulmonary resuscitation Pre-procedure Diagnosis: CODE BLUE, cardiac arrest Post-procedure Diagnosis: same as above Prior to Procedure: Informed Consent: Emergent Attending Staff: Jony Mitchell DO Please refer to nursing code flowsheet for further details Description of Procedure: ACS protocols were followed for a pulseless electrical activity. Patient was recently admitted and found to be bacteremic secondary to a presumptive lower extremity cellulitis. Patient reportedly suffered a PEA arrest and a CODE BLUE was called. Patient was intubated by the emergency department physician. I managed the resuscitative process please refer to code sheet. She required multiple episodes of CPR as well as epinephrine boluses and bicarbonate infusions. Ultimately the patient was stabilized in the emergency department and brought to the critical care unit for further resuscitative efforts. While in the ICU she required cardiopulmonary resuscitation twice prior to discontinuing resuscitative efforts. Complications: Ultimately the patient underwent several rounds of cardiopulmonary resuscitation however became recalcitrant to heroic efforts which were ultimately discontinued and the patient subsequently . Coding CPT Codes Resuscitation - Resuscitation: 02148 Heart/lung resuscitation CPR ([id number]) [facility] [place] Procedure Codes (Charges) Resuscitation Resuscitation: 36693 Heart/lung resuscitation CPR
--- NOTE | 2022-05-22 20:51 | Discharge Summary ---
Date of Service May 22, 2022 Admission HPI Per Admitting Provider 80 yo F with PMHx of recurrent lower extremity cellulitis, A. fib on coumadin, diastolic CHF, tachy-job syndrome, DM type II, CKD stage III, COPD on 4 L oxygen as needed and at bedtime, HLBrigido presented to the ED 05/20 due to acute onset left lower extremity pain and difficulty ambulating for 1 day. Patient reports having on and off lower extremity pain for a long time, yesterday around afternoon, she was not able to get up off the chair due to severe left lower extremity pain which is more abrupt and severe than her usual pain per patient. Patient denies any fever or fall or trauma. Patient denies any chest pain or sore throat or palpitation or shortness of breath or acute changes in her bladder habit. Patient does have on and off loose stool, partly could be due to her p.o. magnesium therapy. 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 Medications reviewed with the patient. Patient denies use of tobacco smoke/alcohol/recreational drugs. Patient states quitting smoking tobacco in 1967. Full code PONeftaly is patient's son Bart per pt (she is in the process of making him PONeftaly). Admission Exam Per Admitting Provider GENERAL: Alert and oriented x3. NAD, on RA. HEENT: No pallor, no icterus. Pupils equal, round and reactive to light. Oral mucosa moist. NECK: No JVD, no neck masses. Cervical collar in place HEART: S1 and S2 heard. Irregular, in 110s, No murmur, no gallop. RESPIRATORY SYSTEM: Normal AP diameter. No accessory muscle use. No wheezing, no crackles. ABDOMEN: Soft, bowel sounds present, nontender, no distention. CENTRAL NERVOUS SYSTEM: No facial droop. Speech is clear. Obeys simple commands. Moves extremities. EXTREMITIES: BLE chronic skin changes w/ crusted superficial wound. LLE w/ erythema from upper thigh extending upto mid leg; warmth and tender. Principal Diagnosis Severe sepsis/septic shock Bacteremia - gram positive High anion gap metabolic acidosis Left lower extremity cellulitis SON on CKD stage 3 A. fib with RVR Elevated troponin Elevated lactate hx of COPD (on 4L chronic O2) Discharge Exam Constitutional Patient pronounced by ICU staff, at 21:10 Discharge Data Allergies Allergy/AdvReac Type Severity Reaction Status Date / Time metformin Allergy Severe EDEMA FACE Verified 02/14/22 13:04 AND HANDS, ITCHY ciprofloxacin Allergy Intermediate RASH Verified 02/14/22 13:04 clindamycin Allergy Intermediate RASH Verified 02/14/22 13:04 pollen extracts Allergy Mild RUNNY NOSE Verified 02/14/22 13:04 Cephalosporins Allergy Unknown Unknown Verified 02/14/22 13:04 montelukast [From [facility]] Allergy Unknown CAN'T Verified 02/14/22 13:04 REMEMBER Penicillins Allergy Unknown CAN'T Verified 02/14/22 13:04 REMEMBER Sulfa (Sulfonamide Allergy Unknown CAN'T Verified 02/14/22 13:04 Antibiotics) REMEMBER Consultations 05/21/22 00:14 ED Decision to Admit Stat 05/21/22 00:59 Consult Infectious Diseases Routine Ordered Studies 05/20/22 21:38 US venous duplex leg [US venous doppler LE LT] Urgent 05/21/22 19:28 CT abd pelvis wo con Stat CT cervical spine wo con Stat CT chest without contrast [CT chest diagnostic wo con] Stat CT head/brain wo con Stat IMPRESSION: There is no hemorrhage, mass effect, or evidence of acute territorial ischemia by CT criteria. Hospital Course (1) Severe sepsis: Plan Severe sepsis POA: Elevated pulse rate/WBC/lactic acid on background of LLE cellulitis LLE cellulitis: Patient has a history of recurrent lower extremity cellulitis Increased blood lactic acid level Patient comes in with acute worsening of her left lower extremity pain and inability to ambulate. At admission WBC/lactic acid/pulse rate elevated Status post 0.5 L IV fluid in the ED, will continue with IV fluid. Continue with daptomycin started in the ED. ID consult. Telemetry monitoring. Follow-up knee x-ray and lower extremity venous Doppler study. Follow-up blood culture. CPK 25 at admission, hold statin while on daptomycin. Pain Mx. SON over CKD stage III: Admitting BUN and creatinine of 55 and 2.48, baseline creatinine around 1.1-1.3, likely prerenal secondary to sepsis, gentle hydration, watch out for fluid overload, BMP in AM. Hold nephrotoxic's. Hypomagnesemia: Patient with chronic history of low magnesium, on magnesium supplement at home, will replete in IV form as well, monitor and replete as appropriate. Likely demand ischemia: Secondary to sepsis, troponin elevated at 30.1, EKG with no acute ST or T changes but with A. fib and RVR. Other chronic medical conditions: Resume home meds as able. On cervical collar for h/o odontoid fracture. DVT prophylaxis: Patient on Coumadin Full code Discharge Plan Discharge Items Patient Disposition: Other Date/Time: 05/21/22 21:10
[2022-05-23] MEDS ORDERED: DAPTOmycin 400 MG in SYRINGE 0 ML IV SCH
--- NOTE | 2022-05-23 07:38 | Procedure Note ---
Procedure Note Date of Service May 21, 2022 Note Chest Tube PLACEMENT NOTE: Procedure:Chest Tube Placement Attending: Dr. Ranjan Mitchell Provider: TRACI Childers Indication: Tension pneumothorax Anesthesia: None Indication: Cardiac arrest, bilateral pneumothoraces Prior to procedure, chest x-ray films were reviewed by myself and demonstrated bilateral pneumothorax and hemothorax. A time-out was completed verifying correct patient, procedure, site, positioning, and implant(s) or special equipment. After emergent needle decompression with a 16-gauge IV catheter into the second intercostal space in the mid clavicular line, the right sided chest wall was prepped with chlorhexidine and draped in the typical sterile fashion. Scalpel was used to make small incision of the superficial tissue, parallel to the direction of the rib anatomy at the midaxillary line at the level of the 4th rib. A finger was inserted towards the second and third rib space and inserted bluntly into the chest cavity. Blood and air were noted from the pleural space. The disruption in the parietal pleura was expanded bluntly and a finger was swept in all directions. A 28 [place] chest tube was advanced to 14 cm using my finger as a guide and directed superiorly. Entry into the pleural space was heralded by blood and air return on insertion. Chest tube was immediately connected to pre-prepared MIRELA pleur-evac system and bloody drainage of approximately 200 mL was noted. Chest tube was sutured securely in place and sterile dressing was applied. Chest tube was placed to -20 cmH2O suction. No immediate complications noted as result of procedure. No post procedure Chest X-ray was ordered as patient shortly . Coding CPT Codes Pulmonary/Thoracic - Pulmonary and Thoracic: 34056 Tube thoracostomy ([id number]) [facility] [place]odes (Charges) Pulmonary/Thoracic Procedure 1: Pulmonary and Thoracic: 91033 Tube thoracostomy
== END 2022-05-21 23:24 | disposition expired | DRG 871 ==
LOC: ED 20:30 → EDINP 05-21 00:18 → SUATTDRO 05-21 00:18 → 1E 05-21 02:36